=== PATIENT | female | born 1975 | race Caucasian/White ===

== ENCOUNTER 2022-12-02 13:49 | Outpatient (OUT) | payer MEDICARE, SELFPAY ==
--- NOTE | 2022-12-02 13:53 | US_ITS ---
Patient: FIDELINA FONTENOT Exam Date: 12/02/2022 : 1975 Gender:F Ordering : ABRAM Avina DERICAUGIE Admission #: [id number] Family : Order #: [id number] CLICK HERE TO VIEW EXAM RADIOLOGY REPORT PROCEDURE: MM TOMOSYNTHESIS DIAGNOSTIC RT, 12/02/2022, 13:45 US BREAST RT LIMITED, 12/02/2022, 14:03 COMPARISON: MAMMO POST BIOPSY RIGHT, 06/04/2022. MG MAMM RT DIAG FU, 05/28/2022. MG MAMM SCREEN 3D MARTHA CAD, 04/29/2022. DIGITIZED_MAMMO, 12/28/2009. INDICATIONS: Abnormal Breast Finding N64.59 Calculator Name NCI Breast Cancer Risk Assessment Tool 5 Year Breast Cancer Risk 3.30% Lifetime Breast Cancer Risk 26.20% Personal Breast Cancer No Personal Ovarian Cancer No Treatments None Family Cancers Mother with breast cancer at age ~40. LOCATION: [facility] BREAST COMPOSITION: Scattered areas fibroglandular density. FINDINGS: DIAGNOSTIC CATEGORY 2--BENIGN FINDING: RIGHT BREAST: Biopsy marker clip within the lower-outer quadrant with adjacent subtle asymmetry corresponding to previously biopsied mass. Ultrasound evaluation demonstrates biopsy marker clip adjacent a 6 x 6 x 3 mm hypoechoic mass, slightly smaller than previously seen. No overtly suspicious findings. Annual screening mammography is recommended. RECOMMENDATIONS: ROUTINE MAMMOGRAM AND CLINICAL EVALUATION IN 12 MONTHS. PLEASE NOTE: A NORMAL MAMMOGRAM DOES NOT EXCLUDE THE POSSIBILITY OF BREAST CANCER. A CLINICALLY SUSPICIOUS PALPABLE LUMP SHOULD BE BIOPSIED. Dictated by: Michael Orantes M.D. on 12/02/2022 at 14:23 Approved by: Michael Orantes M.D. on 12/02/2022 at 14:25
--- NOTE | 2022-12-02 13:57 | MM_ITS ---
Patient: FIDELINA FONTENOT Exam Date: 12/02/2022 : 1975 Gender:F Ordering : ABRAM Avina DERICAUGIE Admission #: [id number] Family : Order #: [id number] CLICK HERE TO VIEW EXAM RADIOLOGY REPORT PROCEDURE: MM TOMOSYNTHESIS DIAGNOSTIC RT, 12/02/2022, 13:45 US BREAST RT LIMITED, 12/02/2022, 14:03 COMPARISON: MAMMO POST BIOPSY RIGHT, 06/04/2022. MG MAMM RT DIAG FU, 05/28/2022. MG MAMM SCREEN 3D MARTHA CAD, 04/29/2022. DIGITIZED_MAMMO, 12/28/2009. INDICATIONS: Abnormal Breast Finding N64.59 Calculator Name NCI Breast Cancer Risk Assessment Tool 5 Year Breast Cancer Risk 3.30% Lifetime Breast Cancer Risk 26.20% Personal Breast Cancer No Personal Ovarian Cancer No Treatments None Family Cancers Mother with breast cancer at age ~40. LOCATION: [facility] BREAST COMPOSITION: Scattered areas fibroglandular density. FINDINGS: DIAGNOSTIC CATEGORY 2--BENIGN FINDING: RIGHT BREAST: Biopsy marker clip within the lower-outer quadrant with adjacent subtle asymmetry corresponding to previously biopsied mass. Ultrasound evaluation demonstrates biopsy marker clip adjacent a 6 x 6 x 3 mm hypoechoic mass, slightly smaller than previously seen. No overtly suspicious findings. Annual screening mammography is recommended. RECOMMENDATIONS: ROUTINE MAMMOGRAM AND CLINICAL EVALUATION IN 12 MONTHS. PLEASE NOTE: A NORMAL MAMMOGRAM DOES NOT EXCLUDE THE POSSIBILITY OF BREAST CANCER. A CLINICALLY SUSPICIOUS PALPABLE LUMP SHOULD BE BIOPSIED. Dictated by: Michael Orantes M.D. on 12/02/2022 at 14:23 Approved by: Michael Orantes M.D. on 12/02/2022 at 14:25
== END 2022-12-02 13:50 ==
LOC: US 13:50
PROVIDERS: PCP Nurse Practitioner Primary Care; Visit Provider Nurse Practitioner Primary Care
DX: N64.59 Other signs and symptoms in breast (principal)
CPT/HCPCS: 76642; 77065; G0279

== ENCOUNTER 2022-12-11 12:19 | Emergency (ER) | payer MEDICARE, SELFPAY ==
[2022-12-11 12:26] VITALS: BP 101/64; PULSE 75; RESP 18; TEMP 36.7; O2SAT 98; BMI 50.0
--- NOTE | 2022-12-11 12:37 | ED.NAVMDI1 ---
HPI - Nausea/Vomiting/Diarrhea General Chief complaint: Nausea/Vomiting/Diarrhea Stated complaint: VOMITING Time Seen by Provider: 12/11/22 12:30 Source: patient Mode of arrival: walk-in Limitations: no limitations History of Present Illness HPI Narrative: 47-year-old female presents for nausea and vomiting and constipation. She hasn't had a bowel movement in four days. That is quite unusual for her, she usually has two a day. No fever or complaints of abdominal pain. Symptoms started yesterday. Related Data Previous Rx's Medication Instructions Recorded ondansetron HCl 4 mg tablet 4 mg PO Q6H PRN nausea and 12/11/22 vomiting #20 tabs Allergies Allergy/AdvReac Type Severity Reaction Status Date / Time doxycycline AdvReac Intermediate Verified 12/11/22 12:39 oxytocin [From Pitocin] AdvReac Intermediate Verified 12/11/22 12:39 sumatriptan [From Imitrex] AdvReac Intermediate Verified 12/11/22 12:39 Review of Systems ROS Narrative A ten point review of systems is negative except as noted above. Exam Narrative Exam Narrative: Nurses note and vital signs reviewed and patient is not hypoxic. General: The patient appears uncomfortable Skin: Warm, Mildly diaphoretic, no pallor noted. There is no rash noted. Head: Normocephalic, atraumatic Eye: Normal conjunctiva, no drainage Ears, Nose, Mouth, and Throat: oral mucosa is moist. Nares patent. Cardiovascular: Regular Rate and Rhythm Respiratory: Patient is in no distress, no accessory muscle use, lungs are clear to auscultation, no wheezing, rales or rhonchi Back: non-tender GI: no tenderness to palpation, no masses appreciated. No rebound, guarding, or rigidity noted. Musculoskeletal: The patient has no evidence of calf tenderness, no pitting edema, symmetrical pulses noted bilaterally Neurological: A&O, normal speech Psychiatric: Cooperative Constitutional Vital Signs - 24 hr 12/11/22 12:26 Temperature 98.1 F Pulse Rate [Monitor] 75 Respiratory Rate 18 Blood Pressure [Left Arm] 101/64 Pulse Oximetry 98 Course Vital Signs Vital signs: Vital Signs Temperature 98.1 F 12/11/22 12:26 Pulse Rate 75 12/11/22 12:26 Respiratory Rate 18 12/11/22 12:26 Blood Pressure 101/64 12/11/22 12:26 Pulse Oximetry 98 12/11/22 12:26 Temperature 98.1 F 12/11/22 12:26 Pulse Rate 75 12/11/22 12:26 Respiratory Rate 18 12/11/22 12:26 Blood Pressure 101/64 12/11/22 12:26 Pulse Oximetry 98 12/11/22 12:26 MDM - Nausea/Vomiting/Diarrhea MDM Narrative Medical decision making narrative: X-rays not consistent with constipation. She is feeling improved with IV fluids and Zofran and she is able to be discharged home. Treatment diagnosis and follow-up were discussed with the patient. Differential Diagnosis Differential diagnosis: Likely food poisoning, gastroenteritis and dehydration Lab Data Attestation: I reviewed the patient's lab results. Labs: Lab Results 12/11/22 Range/Units 12:44 WBC 9.3 (4.0-11.0) 10^3/uL RBC 4.81 (4.20-5.40) 10^6/uL Hgb 14.0 (12.0-16.0) g/dL Hct 42.8 (36.0-48.0) % MCV 89.0 (81.0-99.0) fL MCH 29.1 (26.7-34.0) pg MCHC 32.7 (29.9-35.2) g/dL RDW 15.4 H (11.0-15.0) % Plt Count 274 (150-450) 10^3/uL MPV 10.0 (9.5-13.5) fL Neut % (Auto) 81.3 H (43.0-75.0) % Lymph % (Auto) 13.4 L (20.5-60.0) % Sterling % (Auto) 4.2 (1.7-12.0) % Eos % (Auto) 0.2 L (0.9-7.0) % Baso % (Auto) 0.4 (0.2-2.0) % Neut # (Auto) 7.6 H (1.4-6.5) 10^3/uL Lymph # (Auto) 1.3 (1.2-3.8) 10^3/uL Sterling # (Auto) 0.4 (0.3-0.8) 10^3/uL Eos # (Auto) 0.0 (0.0-0.7) 10^3/uL Baso # (Auto) 0.0 (0.0-0.1) 10^3/uL Abs Immat Gran (auto) 0.05 H (0.00-0.03) 10^3/uL Imm/Tot Granulo (auto) 0.5 (0.0-0.5) % Sodium 138 (136-145) mmol/L Potassium 3.7 (3.5-5.1) mmol/L Chloride 100 (98-107) mmol/L Carbon Dioxide 30.3 (21.0-32.0) mmol/L Anion Gap 11.4 BUN 15.0 (7.0-18.0) mg/dL Creatinine 0.90 (0.55-1.02) mg/dL Est GFR ( Amer) >60 (>=60) Est GFR (Non-Af Amer) >60 (>=60) BUN/Creatinine Ratio 16.7 Glucose 128 H (74-106) mg/dL Calcium 9.2 (8.5-10.1) mg/dL Total Bilirubin 0.8 (0.2-1.0) mg/dL AST 23 (15-37) U/L ALT 30 (14-59) U/L Alkaline Phosphatase 79 (46-116) U/L Total Protein 8.2 (6.4-8.2) g/dL Albumin 4.1 (3.4-5.0) g/dL Globulin 4.1 g/dL Albumin/Globulin Ratio 1.0 Lipase 164.0 (73.0-393.0) U/L Discharge Plan Discharge Chief Complaint: Nausea/Vomiting/Diarrhea Clinical Impression: Nausea & vomiting Patient Disposition: Home, Self-Care Time of Disposition Decision: 14:24 Condition: Good Mode of Transportation: Private Vehicle Prescriptions / Home Meds: New ondansetron HCl 4 mg tablet 4 mg PO Q6H PRN (Reason: nausea and vomiting) Qty: 20 0RF Instructions: Acute Nausea and Vomiting (DC) Stand Alone Forms: Portal Instructions Referrals: ABRAM GALDAMEZ MD [Primary Care Provider] - 1 week
[2022-12-11] MEDS: ONDANSETRON PF 4 MG/2 ML VIAL IV ×2 (12:46→13:57)
[2022-12-11] MEDS: 0.9 % SODIUM CHLORIDE 1,000 ML 999 ML IV (12:47)
[2022-12-11 12:53] LABS: Basophils Percent Auto 0.4 % (0.2-2.0); Eosinophils Percent Auto 0.2 % (0.9-7.0); Hematocrit 42.8 % (36.0-48.0); Immature Granulocytes Abs Auto 0.05 10^3/uL (0.00-0.03); Immature Granulocytes Pct Auto 0.5 % (0.0-0.5); Lymphocytes Absolute Auto 1.3 10^3/uL (1.2-3.8); Lymphocytes Percent Auto 13.4 % (20.5-60.0); Mean Corpuscular HGB Conc 32.7 g/dL (29.9-35.2); Mean Corpuscular Hemoglobin 29.1 pg (26.7-34.0); Monocytes Absolute Auto 0.4 10^3/uL (0.3-0.8); Monocytes Percent Auto 4.2 % (1.7-12.0); Neutrophils Absolute Auto 7.6 10^3/uL (1.4-6.5); Neutrophils Percent Auto 81.3 % (43.0-75.0); Platelet Count 274 10^3/uL (150-450); Red Blood Count 4.81 10^6/uL (4.20-5.40); Red Cell Distribution Width 15.4 % (11.0-15.0); White Blood Count 9.3 10^3/uL (4.0-11.0)
--- NOTE | 2022-12-11 12:57 | XR_ITS ---
The [address] [address] Patient Name: FIDELINA FONTENOT MRN: [id number] date: 1975 Sex: F Assigned Patient Location: ED.MAIN Current Patient Location: ER Accession/Order Number: [id number] Exam Date: 12/11/2022 12:57 Report Date: 12/11/2022 13:36 At the request of: ADAM TUCKER Procedure: XR abdomen 1V EXAMINATION: XR abdomen 1V HISTORY: vomiting, poss constipation COMPARISON: No relevant comparison available. FINDINGS: BOWEL GAS PATTERN: No abnormal dilation or deviation. No significant stool burden. CALCIFICATIONS: None significant. OTHER: Mechanical fusion and degenerative changes of lower lumbar spine. IMPRESSION: 1. Normal bowel gas pattern. 2. No suspicious findings to account for patient's symptoms. Electronically authenticated by: GILL MORENO Date: 12/11/2022 13:36
[2022-12-11 13:08] LABS: Alanine Aminotransferase 30 U/L (14-59); Albumin Level 4.1 g/dL (3.4-5.0); Alkaline Phosphatase 79 U/L (46-116); Anion Gap 11.4; Aspartate Amino Transferase 23 U/L (15-37); BUN Creatinine Ratio 16.7; Bilirubin Total 0.8 mg/dL (0.2-1.0); Calcium 9.2 mg/dL (8.5-10.1); Carbon Dioxide 30.3 mmol/L (21.0-32.0); Chloride 100 mmol/L (98-107); Estimated GFR (African America >60 (>=60); Estimated GFR (Non-African Ame >60 (>=60); Globulin 4.1 g/dL; Glucose 128 mg/dL (74-106); Potassium 3.7 mmol/L (3.5-5.1); Sodium 138 mmol/L (136-145); Total Protein 8.2 g/dL (6.4-8.2)
== END 2022-12-11 14:31 | disposition home or self-care (01) ==
PROVIDERS: Emergency Provider Emergency Medicine; PCP Nurse Practitioner Primary Care
DX: R11.2 Nausea with vomiting, unspecified (principal)
CPT/HCPCS: 36415; 74018; 80053; 83690; 85025; 96361; 96374; 96376; 99284

== ENCOUNTER 2022-12-25 20:42 | Outpatient (REF) | payer MEDICARE, MEDICAID, SELFPAY ==
[2022-12-25 22:03] LABS: Adenovirus NOT DETECTED (NOT DETECTE); Bordetella parapertussis NOT DETECTED (NOT DETECTE); Coronavirus 229E NOT DETECTED (NOT DETECTE); Coronavirus HKU1 NOT DETECTED (NOT DETECTE); Coronavirus NL63 NOT DETECTED (NOT DETECTE); Coronavirus OC43 NOT DETECTED (NOT DETECTE); Human Metapneumovirus NOT DETECTED (NOT DETECTE); Human Rhinovirus/Enterovirus NOT DETECTED (NOT DETECTE); Influenza A NOT DETECTED (NOT DETECTE); Influenza B NOT DETECTED (NOT DETECTE); Mycoplasma pneumoniae NOT DETECTED (NOT DETECTE); Parainfluenza Virus 1 NOT DETECTED (NOT DETECTE); Parainfluenza Virus 2 NOT DETECTED (NOT DETECTE); Parainfluenza Virus 3 NOT DETECTED (NOT DETECTE); Parainfluenza Virus 4 NOT DETECTED (NOT DETECTE); Respiratory Syncytial Virus NOT DETECTED (NOT DETECTE); SARS-CoV-2 NOT DETECTED (NOT DETECTE)
== END 2022-12-25 20:43 | disposition home or self-care (01) ==
LOC: LAB 20:42
PROVIDERS: PCP Nurse Practitioner Primary Care; Visit Provider Nurse Practitioner Primary Care
DX: R11.14 Bilious vomiting (principal); Z20.822 Contact with and (suspected) exposure to COVID-19; R82.998 Other abnormal findings in urine
CPT/HCPCS: 0202U; 87086

== ENCOUNTER 2022-12-26 08:45 | Outpatient (RCR) | payer MEDICARE, MEDICAID, SELFPAY ==
[2022-12-26 08:45] VITALS: BP 145/88; PULSE 83; RESP 20; TEMP 37.4; O2SAT 94
[2022-12-26] MEDS: 0.9 % SODIUM CHLORIDE 1,000 ML 999 ML IV (08:58)
[2022-12-26] MEDS: ONDANSETRON PF 4 MG/2 ML VIAL IV (08:59)
--- NOTE | 2022-12-26 09:09 | PC.NURSE ---
Patient is here for IV hydration with zofran, she is tolerating this well. She currently denies any nausea.
[2022-12-26 09:33] LABS: Alanine Aminotransferase 13 U/L (14-59); Albumin Globulin Ratio 1.2; Albumin Level 4.2 g/dL (3.4-5.0); Alkaline Phosphatase 78 U/L (46-116); Anion Gap 12.4; Aspartate Amino Transferase 16 U/L (15-37); BUN Creatinine Ratio 11.2; Calcium 9.1 mg/dL (8.5-10.1); Carbon Dioxide 25.3 mmol/L (21.0-32.0); Chloride 100 mmol/L (98-107); Estimated GFR (African America >60 (>=60); Estimated GFR (Non-African Ame 55 (>=60); Globulin 3.6 g/dL; Glucose 208 mg/dL (74-106); Potassium 3.7 mmol/L (3.5-5.1); Sodium 134 mmol/L (136-145); Total Protein 7.8 g/dL (6.4-8.2)
--- NOTE | 2022-12-26 11:02 | PC.NURSE ---
Patient tolerated infusion well without complications. IV was discontinued and patient tolerated well. She was discharged home with family.
== END 2023-01-19 23:59 | disposition home or self-care (01) ==
LOC: INF 08:45
PROVIDERS: PCP Nurse Practitioner Primary Care; Visit Provider Nurse Practitioner Primary Care
DX: K52.9 Noninfective gastroenteritis and colitis, unspecified (principal)
CPT/HCPCS: 36415; 80048; 80053; 96361; 96374

== ENCOUNTER 2023-02-02 11:10 | Outpatient (OUT) | payer MEDICARE, MEDICAID, SELFPAY ==
[2023-02-02 12:18] LABS: Basophils Percent Auto 0.5 % (0.2-2.0); Eosinophils Absolute Auto 0.1 10^3/uL (0.0-0.7); Eosinophils Percent Auto 1.2 % (0.9-7.0); Hematocrit 39.7 % (36.0-48.0); Hemoglobin 13.2 g/dL (12.0-16.0); Immature Granulocytes Abs Auto 0.04 10^3/uL (0.00-0.03); Immature Granulocytes Pct Auto 0.5 % (0.0-0.5); Lymphocytes Absolute Auto 1.9 10^3/uL (1.2-3.8); Lymphocytes Percent Auto 25.5 % (20.5-60.0); Mean Corpuscular HGB Conc 33.2 g/dL (29.9-35.2); Mean Corpuscular Hemoglobin 29.3 pg (26.7-34.0); Mean Corpuscular Volume 88.2 fL (81.0-99.0); Mean Platelet Volume 10.5 fL (9.5-13.5); Monocytes Absolute Auto 0.4 10^3/uL (0.3-0.8); Monocytes Percent Auto 4.6 % (1.7-12.0); Neutrophils Absolute Auto 5.1 10^3/uL (1.4-6.5); Neutrophils Percent Auto 67.7 % (43.0-75.0); Platelet Count 224 10^3/uL (150-450); Red Cell Distribution Width 15.6 % (11.0-15.0); White Blood Count 7.5 10^3/uL (4.0-11.0)
[2023-02-02 12:27] LABS: Alanine Aminotransferase 26 U/L (14-59); Albumin Globulin Ratio 1.1; Albumin Level 3.9 g/dL (3.4-5.0); Alkaline Phosphatase 76 U/L (46-116); Anion Gap 13.8; Aspartate Amino Transferase 14 U/L (15-37); BUN Creatinine Ratio 11.3; Bilirubin Total 0.4 mg/dL (0.2-1.0); C Reactive Protein 0.6 mg/dL (<=1.0); Calcium 8.8 mg/dL (8.5-10.1); Chloride 102 mmol/L (98-107); Estimated GFR (African America >60 (>=60); Estimated GFR (Non-African Ame >60 (>=60); Globulin 3.4 g/dL; Glucose 119 mg/dL (74-106); Potassium 3.8 mmol/L (3.5-5.1); Sodium 140 mmol/L (136-145); Total Protein 7.3 g/dL (6.4-8.2)
[2023-02-02 12:32] LABS: Erythrocyte Sedimentation Rate 16 mm/hr (<=20)
== END 2023-02-02 11:11 | disposition home or self-care (01) ==
LOC: LAB 11:14
PROVIDERS: PCP Nurse Practitioner Primary Care
DX: M06.00 Rheumatoid arthritis without rheumatoid factor, unspecified site (principal); Z79.899 Other long term (current) drug therapy
CPT/HCPCS: 36415; 80053; 85025; 85652; 86140

== ENCOUNTER 2023-02-02 11:22 | Outpatient (OUT) | payer MEDICARE, MEDICAID, SELFPAY ==
[2023-02-02 11:47] LABS: Adenovirus NOT DETECTED (NOT DETECTE); Bordetella parapertussis NOT DETECTED (NOT DETECTE); Coronavirus 229E NOT DETECTED (NOT DETECTE); Coronavirus HKU1 NOT DETECTED (NOT DETECTE); Coronavirus NL63 NOT DETECTED (NOT DETECTE); Coronavirus OC43 NOT DETECTED (NOT DETECTE); Human Metapneumovirus NOT DETECTED (NOT DETECTE); Human Rhinovirus/Enterovirus NOT DETECTED (NOT DETECTE); Influenza A NOT DETECTED (NOT DETECTE); Influenza B NOT DETECTED (NOT DETECTE); Mycoplasma pneumoniae NOT DETECTED (NOT DETECTE); Parainfluenza Virus 1 NOT DETECTED (NOT DETECTE); Parainfluenza Virus 2 NOT DETECTED (NOT DETECTE); Parainfluenza Virus 3 NOT DETECTED (NOT DETECTE); Parainfluenza Virus 4 NOT DETECTED (NOT DETECTE); Respiratory Syncytial Virus NOT DETECTED (NOT DETECTE); SARS-CoV-2 NOT DETECTED (NOT DETECTE)
== END 2023-02-02 11:23 | disposition home or self-care (01) ==
LOC: LAB 11:24
PROVIDERS: PCP Nurse Practitioner Primary Care; Visit Provider Nurse Practitioner Primary Care
DX: M06.00 Rheumatoid arthritis without rheumatoid factor, unspecified site (principal); Z79.899 Other long term (current) drug therapy; R11.14 Bilious vomiting
CPT/HCPCS: 0202U; 36415; 80053; 85025; 85652; 86140

== ENCOUNTER 2023-02-12 11:49 | Outpatient (OUT) | payer MEDICARE, MEDICAID, SELFPAY ==
[2023-02-12 12:28] LABS: Estimated Average Glucose 117 mg/dL; Glycohemoglobin A1C 5.7 % (4.5-6.2)
== END 2023-02-12 11:50 | disposition home or self-care (01) ==
PROVIDERS: PCP Nurse Practitioner Primary Care; Visit Provider Nurse Practitioner Primary Care
DX: R73.03 Prediabetes (principal)
CPT/HCPCS: 36415; 83036

== ENCOUNTER 2023-04-10 12:45 | Outpatient (OUT) | payer MEDICARE, MEDICAID, SELFPAY ==
--- NOTE | 2023-04-10 12:51 | US_ITS ---
The [address] [address] Patient Name: FIDELINA FONTENOT MRN: [id number] date: 1975 Sex: F Assigned Patient Location: [place] Current Patient Location: Accession/Order Number: [id number] Exam Date: 04/10/2023 12:52 Report Date: 04/10/2023 14:43 At the request of: ALIS STEINBERG Procedure: US pelvis w/ transvaginal EXAM: US pelvis w/ transvaginal HISTORY: Menorrhagia with irregular cycle N92.1 COMPARISON: None. TECHNIQUE: Real-time transabdominal and transvaginal imaging of the pelvis. Findings: The uterus measures 9.9 x 5.5 x 6.5 cm. No intrauterine mass. There is scarring involving the anterior uterus from prior section. The endometrium is 0.9 cm thick. No fluid within the endometrial canal. Trace amount of fluid within the cervical canal. The right ovary is not visualized due to overlying bowel gas. The left ovary measures 2.9 x 2.0 x 2.2 cm and is unremarkable. Blood flow is identified. No adnexal mass or free pelvic fluid. US/US pelvis w/ transvaginal IMPRESSION: 1. Trace fluid within the cervical canal. 2. Nonvisualization of the right ovary. Electronically authenticated by: WILFRIDO FORD Date: 04/10/2023 14:43
[2023-04-10 13:50] LABS: Basophils Absolute Auto 0.1 10^3/uL (0.0-0.1); Basophils Percent Auto 0.8 % (0.2-2.0); Eosinophils Absolute Auto 0.1 10^3/uL (0.0-0.7); Eosinophils Percent Auto 1.5 % (0.9-7.0); Hematocrit 35.5 % (36.0-48.0); Hemoglobin 11.7 g/dL (12.0-16.0); Immature Granulocytes Abs Auto 0.01 10^3/uL (0.00-0.03); Immature Granulocytes Pct Auto 0.1 % (0.0-0.5); Mean Corpuscular Hemoglobin 29.6 pg (26.7-34.0); Mean Corpuscular Volume 89.9 fL (81.0-99.0); Mean Platelet Volume 10.1 fL (9.5-13.5); Monocytes Absolute Auto 0.3 10^3/uL (0.3-0.8); Monocytes Percent Auto 4.2 % (1.7-12.0); Neutrophils Absolute Auto 4.9 10^3/uL (1.4-6.5); Neutrophils Percent Auto 66.4 % (43.0-75.0); Platelet Count 201 10^3/uL (150-450); Red Blood Count 3.95 10^6/uL (4.20-5.40); Red Cell Distribution Width 14.4 % (11.0-15.0); White Blood Count 7.3 10^3/uL (4.0-11.0)
[2023-04-10 14:04] LABS: INR 0.94; Partial Thromboplastin Time 27.2 sec (22.3-36.2)
[2023-04-10 14:24] LABS: Free T4 0.88 ng/dL (0.76-1.46)
[2023-04-10 14:36] LABS: HCG Quantitative 2 mIU/mL; Thyroid Stimulating Hormone 1.354 uIU/mL (0.358-3.740)
== END 2023-04-10 12:46 | disposition home or self-care (01) ==
LOC: US 12:46
PROVIDERS: PCP Nurse Practitioner Primary Care; Visit Provider Obstetrics & Gynecology
DX: N92.1 Excessive and frequent menstruation with irregular cycle (principal); N94.6 Dysmenorrhea, unspecified
CPT/HCPCS: 36415; 76830; 76856; 84439; 84443; 84702; 85025; 85610; 85730

== ENCOUNTER 2023-04-28 12:22 | Outpatient (OUT) | payer MEDICARE, SELFPAY ==
--- NOTE | 2023-04-28 13:00 | XR_ITS ---
The [address] [address] Patient Name: FIDELINA FONTENOT MRN: [id number] date: 1975 Sex: F Assigned Patient Location: [facility] Current Patient Location: [facility] Accession/Order Number: [id number] Exam Date: 04/28/2023 13:15 Report Date: 04/28/2023 13:48 At the request of: ALIS STEINBERG Procedure: XR chest 2V EXAMINATION: XR chest 2V HISTORY: Preop exam COMPARISON: No relevant comparison available. TECHNIQUE: PA and lateral FINDINGS: LUNGS: No significant pulmonary parenchymal abnormalities. VASCULATURE: No increased pulmonary vasculature. PLEURA: No pneumothorax, effusion, or pleural thickening. CARDIAC: No cardiomegaly or cardiac silhouette abnormality. MEDIASTINUM: No visible mass or adenopathy. BONES: No fracture or visible bone lesion. OTHER: Negative. XR/XR chest 2V IMPRESSION: No acute cardiopulmonary process Electronically authenticated by: AGUSTIN DIMAS Date: 04/28/2023 13:48
[2023-04-28 13:11] LABS: Basophils Percent Auto 0.5 % (0.2-2.0); Eosinophils Absolute Auto 0.1 10^3/uL (0.0-0.7); Eosinophils Percent Auto 1.3 % (0.9-7.0); Hematocrit 38.4 % (36.0-48.0); Hemoglobin 12.4 g/dL (12.0-16.0); Immature Granulocytes Abs Auto 0.02 10^3/uL (0.00-0.03); Immature Granulocytes Pct Auto 0.3 % (0.0-0.5); Lymphocytes Absolute Auto 1.5 10^3/uL (1.2-3.8); Lymphocytes Percent Auto 20.3 % (20.5-60.0); Mean Corpuscular HGB Conc 32.3 g/dL (29.9-35.2); Mean Corpuscular Hemoglobin 28.7 pg (26.7-34.0); Mean Corpuscular Volume 88.9 fL (81.0-99.0); Mean Platelet Volume 10.1 fL (9.5-13.5); Monocytes Absolute Auto 0.4 10^3/uL (0.3-0.8); Monocytes Percent Auto 4.7 % (1.7-12.0); Neutrophils Absolute Auto 5.4 10^3/uL (1.4-6.5); Neutrophils Percent Auto 72.9 % (43.0-75.0); Platelet Count 215 10^3/uL (150-450); Red Blood Count 4.32 10^6/uL (4.20-5.40); Red Cell Distribution Width 14.7 % (11.0-15.0); White Blood Count 7.4 10^3/uL (4.0-11.0)
[2023-04-28 13:35] LABS: Anion Gap 8.4; BUN Creatinine Ratio 16.7; Calcium 9.1 mg/dL (8.5-10.1); Carbon Dioxide 31.5 mmol/L (21.0-32.0); Chloride 100 mmol/L (98-107); Estimated GFR (African America >60 (>=60); Estimated GFR (Non-African Ame >60 (>=60); Glucose 103 mg/dL (74-106); Potassium 3.9 mmol/L (3.5-5.1); Sodium 136 mmol/L (136-145)
[2023-04-28 13:47] LABS: INR 0.97; Partial Thromboplastin Time 25.9 sec (22.3-36.2); Prothrombin Time 10.3 sec (9.0-11.6)
== END 2023-04-28 12:23 | disposition home or self-care (01) ==
LOC: PST 12:24
PROVIDERS: PCP Nurse Practitioner Primary Care; Visit Provider Obstetrics & Gynecology
DX: Z01.810 Encounter for preprocedural cardiovascular examination (principal); Z01.812 Encounter for preprocedural laboratory examination; N92.0 Excessive and frequent menstruation with regular cycle; N93.9 Abnormal uterine and vaginal bleeding, unspecified; R10.2 Pelvic and perineal pain
CPT/HCPCS: 71046; 80048; 85025; 85610; 85730

== ENCOUNTER 2023-05-11 06:15 | Day surgery (SDC) | payer MEDICARE, MEDICAID, SELFPAY ==
[2023-04-28 13:16] VITALS: BP 106/69; PULSE 71; RESP 22; TEMP 36.6; O2SAT 95; BMI 51.7
[2023-05-11] VITALS (14 sets, daily range): BP systolic 119–164; BP diastolic 69–94; PULSE 60–83; RESP 2–19; TEMP 36–36.9; O2SAT 90–96
[2023-05-11 06:28] LABS: Basophils Absolute Auto 0.1 10^3/uL (0.0-0.1); Basophils Percent Auto 0.7 % (0.2-2.0); Eosinophils Absolute Auto 0.2 10^3/uL (0.0-0.7); Eosinophils Percent Auto 2.4 % (0.9-7.0); Hematocrit 39.2 % (36.0-48.0); Hemoglobin 12.6 g/dL (12.0-16.0); Immature Granulocytes Abs Auto 0.01 10^3/uL (0.00-0.03); Immature Granulocytes Pct Auto 0.1 % (0.0-0.5); Lymphocytes Absolute Auto 2.3 10^3/uL (1.2-3.8); Lymphocytes Percent Auto 32.9 % (20.5-60.0); Mean Corpuscular HGB Conc 32.1 g/dL (29.9-35.2); Mean Corpuscular Hemoglobin 28.9 pg (26.7-34.0); Mean Corpuscular Volume 89.9 fL (81.0-99.0); Mean Platelet Volume 9.7 fL (9.5-13.5); Monocytes Absolute Auto 0.4 10^3/uL (0.3-0.8); Monocytes Percent Auto 6.1 % (1.7-12.0); Neutrophils Absolute Auto 4.1 10^3/uL (1.4-6.5); Neutrophils Percent Auto 57.8 % (43.0-75.0); Platelet Count 222 10^3/uL (150-450); Red Blood Count 4.36 10^6/uL (4.20-5.40); Red Cell Distribution Width 15.2 % (11.0-15.0); White Blood Count 7.1 10^3/uL (4.0-11.0)
--- NOTE | 2023-05-11 06:51 | PC.NURSE ---
SOB with exertion
[2023-05-11 06:53] LABS: HCG Quantitative <1 mIU/mL
[2023-05-11] MEDS: LACTATED RINGER'S SOLUTION 1,000 ML 50 ML IV (07:11)
--- NOTE | 2023-05-11 08:15 | PM.ONB ---
Brief Operative Note Date of procedure: 05/11/23 Pre-op diagnosis: menorrhagia Post-op diagnosis: same as pre-op Procedure: NAME OF PROCEDURE: [ ] Serenity endometrial ablation with hysteroscopy. PROCEDURE: The patient was taken back to the OR where she was prepped and draped in the normal sterile fashion after being placed in the dorsal lithotomy position, after being placed under general anesthesia without difficulty.? A weighted speculum was placed into the vagina. The anterior lip was grasped with a single tooth tenaculum. The patient was then sounded to approximated 8cm. The patient?s cervix was gently dilated using hegardilators. The hysteroscope was passed through the cervix into the uterus where both ostia were seen. No gross evidence of polyps, fibroids or malignancy. The cervical length was noted to be 4 cm. The total cavity length is 4cm.? The Serenity ablation apparatus was set to approximately 4cm in length. This was placed through the cervix and into the uterus. After the seal was tested, at that time the total ablation of 120 seconds was performed with the Serenity withoutdifficulty. All instruments were removed from the vagina. Excellent hemostasis noted.? Sponge and lap count correct times 2.? Patient taken to recovery in stable condition. Surgeon: Reza Mendez Estimated blood loss (mL): 5 Pathology: none sent Condition: stable Disposition: PACU
[2023-05-11] MEDS: HYDROCODONE/ACET 5-325 MG TABLET 1 TAB PO (08:40)
== END 2023-05-11 09:21 | disposition home or self-care (01) ==
PROVIDERS: PCP Nurse Practitioner Primary Care; Visit Provider Obstetrics & Gynecology
PROC: (CPT 58563; principal; 2023-05-11 07:30)
DX: N92.0 Excessive and frequent menstruation with regular cycle (principal); N93.9 Abnormal uterine and vaginal bleeding, unspecified; R10.2 Pelvic and perineal pain; J44.9 Chronic obstructive pulmonary disease, unspecified; I50.9 Heart failure, unspecified; I25.2 Old myocardial infarction; Z98.51 Tubal ligation status; F17.210 Nicotine dependence, cigarettes, uncomplicated; G47.33 Obstructive sleep apnea (adult) (pediatric); I11.0 Hypertensive heart disease with heart failure; E78.5 Hyperlipidemia, unspecified; Z95.5 Presence of coronary angioplasty implant and graft; K21.9 Gastro-esophageal reflux disease without esophagitis; E66.01 Morbid (severe) obesity due to excess calories; Z68.43 Body mass index [BMI] 50.0-59.9, adult; R73.03 Prediabetes; F41.9 Anxiety disorder, unspecified; F32.A Depression, unspecified
CPT/HCPCS: 58563; 36415; 84702; 85025; J2704

== ENCOUNTER 2023-09-02 12:35 | Outpatient (OUT) | payer MEDICARE, SELFPAY ==
--- OUTSIDE RECORDS SUMMARY | 2023-09-02 12:45 | XMS_ITS | CCD ---
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 Role Phone Unavailable Primary Care Provider Unavailjim e Faisal Nix MD, Wally Primary Care Provider [facility] Referring Unavailable Jannette, Peterson Admitting Unavailable Jannette, Peterson Attending Unavailable ROSA CM Referring Unavailable LEE, CM Primary Care Unavailable Jannette, Peterson Admitting Unavailable Jannette, Peterson Attending Unavailable SELF, REFERRED Referring Unavailable ROSA, CM Primary Care Unavailable Jannette, Peterson Admitting Unavailable Jannette, Peterson Attending Unavailable ROSA CM Referring Unavailable ROSA, CM Primary Care Unavailable SHAMMO, DONNIE Referring Unavailable Rick STAPLES Attending Unavailable Rick STAPLES Attending Unavailable Mingo Thapa Primary Care Provider SHAMMO, DONNIE Admitting Unavailable SHAMMO, DONNIE Attending Unavailable SHAMMO, DONNIE Primary Care Unavailable AGUSTIN ADAMSON Consulting Unavailable SHAMMO, DONNIE Consulting Unavailable SHAMMO, DONNIE Admitting Unavailable SHAMMO, DONNIE Attending Unavailable SHAMMO, DONNIE Primary Care Unavailable SHAMMO, DONNIE Consulting Unavailable SHAMMO, DONNIE Primary Care Unavailable REQUEST, DR NONE LISTED Consulting Unavaila ble REQUEST, DR NONE LISTED Attending Unavaila ble REQUEST, NONE LISTED Admitting Unavaila ble SHAMMO, DONNIE Admitting Unavailable SHAMMO, DONNIE Attending Unavailable SHAMMO, DONNIE Primary Care Unavailable SHAMMO, DONNIE Consulting Unavailable SHAMMO, DONNIE Primary Care Unavailable HAY ., DR AVILES Consulting Unavailable HAY ., DR AVILES Attending Unavailable HAY ., DR AVILES Admitting Unavailable WILFRIDO FORD Consulting Unavailable SHAMMO, DONNIE Admitting Unavailable SHAMMO, DONNIE Primary Care Unavailable SHAMMO, DONNIE Attending Unavailable ZIEBER, DR GILL Contreras Consulting Unavailable SHAMMO, DONNIE Consulting Unavailable SHAMMO, DONNIE Primary Care Unavailable SHAMMO, DONNIE Attending Unavailable SHAMMO, DONNIE Admitting Unavailable SHAMMO, DONNIE Primary Care Unavailable HAY ., DR AVILES Consulting Unavailable HAY ., DR AVILES Attending Unavailable HAY ., DR AVILES Admitting Unavailable SHAMMO, DONNIE Attending Unavailable SHAMMO, DONNIE Primary Care Unavailable ZIEBER, DR GILL Contreras Consulting Unavailable SHAMMO, DONNIE Admitting Unavailable NEFCY, MELISSA Consulting Unavailable SHAMMO, DONNIE Consulting Unavailable SHAMMO, DONNIE Admitting Unavailable SHAMMO, DONNIE Primary Care Unavailable SHAMMO, DONNIE Consulting Unavailable SHAMMO, DONNIE Attending Unavailable SHAMMO, DONNIE Admitting Unavailable SHAMMO, DONNIE Primary Care Unavailable SHAMMO, DONNIE Attending Unavailable SHAMMO, DONNIE Consulting Unavailable SHAMMO, DONNIE Admitting Unavailable SHAMMO, DONNIE Attending Unavailable SHAMMO, DONNIE Primary Care Unavailable ZIEBER, DR GILL Contreras Consulting Unavailable SHAMMO, DONNIE Consulting Unavailable SHAMMO, DONNIE Admitting Unavailable SHAMMO, DONNIE Attending Unavailable SHAMMO, DONNIE Primary Care Unavailable Agustin Stephenson Consulting Unavailable SHAMMO, DONNIE Consulting Unavailable SHAMMO, DONNIE Primary Care Unavailable MISC, DR REYES Consulting Unavailable MISC, DR REYES Attending Unavailable MISC, DR REYES Admitting Unavailable KLIPPAGUSTIN PRESLEY Consulting Unavailable SHAMMO, DONNIE Primary Care Unavailable SHAMMO, DONNIE Attending Unavailable SHAMMO, DONNIE Admitting Unavailable Shammo 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, [facility] Primary Care Provi orly MOHIT DEJESUS Admitting Unavailable MOHIT DEJESUS Attending Unavailable [facility] Primary Care Unavailable OLEGMOHIT NUNEZ N Referring Unavailable SHAMMO, [facility] Primary Care Unavailable Franklin, Kayla Unavailable KIM GARCIA Attending Unavailable KIM GARCIA Attending Unavailable MEDINA MONTES Attending Unavailable MEDINA MONTES Attending Unavailable KIM GARCIA Attending Unavailable PETERSON BHATIA Attending Unavailable KIM GARCIA Attending Unavailable VALORIE ARIAS Referring Unavailable ALIS STEINBERG Attending Unavailable ADELAIDA SUBRAMANIAN Attending Unavailable Faisal Nix MD, [facility] Primary Care Provider Allergies Allergy Classification Reported Allergen(s) Allergy Type Date of Onset Reaction(s) Facility (5 sources) Doxycycline; Translations: [DOXYCYCLINE] Drug Allergy 7 [facility] (6 sources) Oxytocin; Translations: [OXYTOCIN] Drug Allergy 4 Anaphylaxis [employer] Work Phone: (5 sources) SUMAtriptan; Translations: [SUMATRIPTAN] Drug Allergy 7 Other (See Comments) [employer] Work Phone: (1 source) Desonide Drug Allergy 1 [facility] (3 sources) Doxycycline Drug Allergy 0 [facility] (4 sources) Morphine; Translations: [MORPHINE] Drug Allergy 7 [facility] (4 sources) NSAIDs; Translations: [NSAIDS (NON-STEROIDAL ANTI-INFLAMMATO RY DRUG)] Drug allergy (disorder) 0 [facility] (2 sources) Oxytocin Drug Allergy 0 Unknown [facility] (4 sources) Plasmin Drug Allergy 9 Unknown [facility] (3 sources) Doxycycline Drug Allergy 7 [facility] (4 sources) Non-steroidal anti-inflammato ry agent Drug Allergy 7 Other: See Comments [facility] (3 sources) SUMAtriptan Drug Allergy 7 Other: See Comments [facility] (2 sources) Oxytocin Drug Allergy 6 [facility] Repository (3 sources) dulaglutide; Translations: [DULAGLUTIDE] Drug Allergy 3 Nausea And Vomiting [facility] (1 source) dulaglutide Drug Allergy vomiting [facility] Other (1 source) ADHESIVE TAPE-SILICONES; Translations: [ADHESIVE TAPE-SILICONES] Propensity to adverse reactions to drug (disorder) 4 [facility] Rep[facility] Medications Current Medications Medication Drug Class(es) Dates Sig (Normalized) Sig (Original) atorvastatin 10 mg oral tablet (1 source) HMG-CoA Reductase Inhibitor Start: 05-20-2022 take 1 tablet by mouth in the morning atorvastatin (LIPITOR) 10 mg tablet Indications: Tobacco abuse , Dyslipidemia Take 1 tablet (10 mg total) by mouth in the morning. 90 tablet 2 05/20/2022 Active busPIRone hydrochloride 15 mg oral tablet (4 sources) Start: 10-15-2021 take 1 tablet by mouth twice daily busPIRone (BUSPAR) 15 MG tablet take 1 tablet by mouth twice a day 0 10/15/2021 Active Comment on above: Take 15 mg by mouth twice daily. calcium chloride 0.0014 meq/ml / potassium chloride 0.004 meq/ml / sodium chloride 0.103 meq/ml / sodium lactate 0.028 meq/ml injectable solution (1 source) Start: 03-05-2023 lactated ringers IV soln infusion cariprazine 3 mg oral capsule (5 sources) Atypical Antipsychotic Start: 10-16-2021 take 1 capsule by mouth once daily VRAYLAR 3 MG CAPS capsule take 1 capsule by mouth by mouth once daily 0 10/16/2021 Active take 4.5 mg by mouth in the morn ing cariprazine (VRAYLAR) 3 mg capsule Take 4.5 mg by mouth in the morning. 0 Active Vraylar Active take 1 capsule by mouth once valencia ly cariprazine (VRAYLAR) 4.5 mg capsule Take 4.5 mg by mouth once daily. 0 Active Comment on above: Take 4.5 mg by mouth once daily. cephalexin 500 mg oral capsule (1 source) Cephalosporin Antibacterial Start: 023 take 1 capsule by mouth every six hours Cephalexin 500 MG 1 capsule Orally Four times a day for 10 days May, Active cyclobenzaprine hydrochloride 10 mg oral tablet (1 source) Muscle Relaxant take 1 tablet by mouth every eight hours Cyclobenzaprine HCl 10 MG 1 tablet as needed Orally Three times a day Active Dilaudid-HP (1 source) Dilaudid-HP Acti ve DULoxetine 60 mg delayed release oral capsule (6 sources) Serotonin and Norepinephrine Reuptake Inhibitor take 1 capsule by mouth in the morning, then take 1 capsule by mouth at bedtime DULoxetine (CYMBALTA) 60 mg capsule Take 1 capsule (60 mg total) by mouth in the morning and 1 capsule (60 mg total) before bedtime. 0 Active take 1 capsule by mo uth every twelve hours Cymbalta 20 MG 1 capsule Orally Twice a day Active take 2 capsules by m outh once daily in the morning DULoxetine (CYMBALTA) 60 mg capsule Take 60 mg by mouth once daily. Taking two capsules (120mg) po every am 0 Active Comment on above: Take 60 mg by mouth once daily. Taking two capsules (120mg) po every am 2 ml fentaNYL 0.05 mg/ml injection (2 sources) Opioid Agonist Start: 03-05-2023 fentaNYL (SUBLIMAZE) injection 50 mcg Start: 03-05-2023 fentaNYL (SUBL IMAZE) injection 25 mcg folic acid 1 mg oral tablet (3 sources) take 1 tablet by raz th every twenty-four hours Folic Acid 1 MG 1 tablet Orally Once a day Active Folic Acid 20 mg cap Take by mouth once daily. 0 Active Comment on above: Take by mouth once d aily. furosemide 40 mg oral tablet (5 sources) Loop Diuretic Start: 09-04-2021 take 1 tablet by mouth twice daily furosemide (LASIX) 40 MG tablet take 1 tablet by mouth twice a day if needed for SWELLING 0 09/04/2021 Active take 1 tablet by mouth once martina y furosemide (LASIX) 20 mg tablet Take 20 mg by mouth once daily. 0 Active Comment on above: Take 20 mg by mouth once daily. lamoTRIgine 25 mg oral tablet (2 sources) Mood Stabilizer, Anti-epileptic Agent take 1 tablet by mouth in the morning lamoTRIgine (LaMICtal) 25 mg tablet Take 1 tablet (25 mg total) by mouth in the morning. 0 Active Comment on above: Take 25 mg by mouth once daily. 10 ml lidocaine hydrochloride 10 mg/ml injection (1 source) Antiarrhythmic, Amide Local Anesthetic Start: 03-06-20 End: 03-07-20 lidocaine PF 1 % injection 1 mL Lisinopril (1 source) Angiotensin Converting Enzyme Inhibitor Lisinopril Active methotrexate 5 mg oral tablet (1 source) Folate Analog Metabolic Inhibitor Methotrexate Sodium 5 MG as directed Orally Active 24 hr metoprolol succinate 25 mg extended release oral tablet (4 sources) beta-Adrenergic Elio Start: 09-05-19 take 1 tablet by mouth once daily metoprolol succinate (TOPROL XL) 25 MG extended release tablet take 1 tablet by mouth once daily 0 09/04/2021 Active take 1 tablet by raz th every twenty-four hours in the morning metoprolol succinate XL (TOPROL XL) 25 m g 24 hr tablet Take 1 tablet (25 mg total) by mouth in the morning. 0 Active take 25 mg by mouth once daily M ETOPROLOL SUCCINATE ORAL Take 25 mg by mouth once daily. 0 Active Comment on above: Take 25 mg by mouth once daily. 2 ml ondansetron 2 mg/ml injection (1 source) Serotonin-3 Receptor Antagonist Start: 3 End: 3 ondansetron (ZOFRAN) injection 4 mg oxyCODONE hydrochloride 5 mg oral tablet (1 source) Opioid Agonist Start: 3 End: 3 oxyCODONE (ROXICODONE) immediate release tablet 5 mg prazosin 1 mg oral capsule (3 sources) alpha-Adrenergic Elio take 1 capsule by mouth once daily prazosin (MINIPRESS) 1 mg capsule Take 1 capsule (1 mg total) by mouth nightly. 0 Active Prazosin HCl Act mehran Comment on above: Take 1 mg by mouth d aily at bedtime. 5 ml sodium chloride 9 mg/ml injection (4 sources) Start: 03-05-2023 sodium chloride flush 0.9 % injection 5-40 mL Start: 03-05-2023 0.9 % sodium c hloride infusion Start: 03-05-2023 sodium chlorid e flush 0.9 % injection 5-40 mL spironolactone 25 mg oral tablet (4 sources) Aldosterone Antagonist Start: 09-04-2021 take 0.5 tablet by mouth once daily spironolactone (ALDACTONE) 25 MG tablet take 1/2 tablet by mouth once daily 0 09/04/2021 Active take 1 tablet by mouth in the mo rning spironolactone (ALDACTONE) 25 mg tablet Take 1 tablet (25 mg total) by mouth in the morning. 0 Active Comment on above: Take 25 mg by mouth once daily. Completed/Discontinued Medications Medication Drug Class(es) Dates Sig (Normalized) Sig (Original) acetaminophen 325 mg oral tablet (1 source) take 2 tablets by mouth every six hours as needed acetaminophen (TYLENOL) 325 mg tablet Take 650 mg by mouth every 6 hours as needed. 0 Active Comment on above: Take 650 mg by mouth every 6 hours as needed. [id number] 200 actuat albuterol 0.09 mg/actuat metered dose inhaler (3 sources) beta2-Adrenergic Agonist Start: 05-16-2022 take 2 puff(s) by mouth every four hours albuterol HFA (PROVENTIL HFA, VENTOLIN HFA) 90 mcg/actuation inhaler INHALE 2 PUFFS BY MOUTH EVERY 4 HOURS IF NEEDED FOR SHORTNESS OF BREATH 0 05/16/2022 Active Start: 08-09-2021 take 2 puff(s) by mo [facility] every four hours as needed albuterol sulfate HFA 108 (90 Base) MCG/ACT inhaler INHALE 2 PUFFS BY MOUTH EVERY 4 HOURS NEEDED 0 08/09/2021 Active Comment on above: INHALE 2 PUFFS BY [facility] EVERY 4 HOURS IF NEEDED FOR SHORTNESS OF BREATH amitriptyline hydrochloride 25 mg oral tablet (2 sources) Tricyclic Antidepressant take 1 tablet by mouth once daily at bedtime amitriptyline (ELAVIL) 25 mg tablet Take 25 mg by mouth daily at bedtime. For insomnia 0 Active Comment on above: Take 25 mg by mouth daily at bedtime. For insomnia amphetamine aspartate 5 mg / amphetamine sulfate 5 mg / dextroamphetamine saccharate 5 mg / dextroamphetamine sulfate 5 mg oral tablet (2 sources) Central Nervous System Stimulant Start: 017 take 1 tablet by mouth once daily dextroamphetamine-a mphetamine (ADDERALL) 20 mg tablet Take 1 tablet by mouth once daily. 0 02/19/2017 Active Comment on above: Take 1 tablet by [facility] once daily. brexpiprazole 2 mg oral tablet (3 sources) Atypical Antipsychotic Rexulti 2mg 2mg Oral Not-Taking/PRN Comment on above: Take by mouth once d aily. For mental health capsaicin 0.75 mg/ml topical cream (1 source) capsaicin (ZOSTRIX-HP) 0.075 % topical cream Apply 1 application to affected area three times daily. 0 Active Comment on above: Apply 1 application to affected area three times daily. capsaicin [id number] mg/mg / lidocaine 0.045 mg/mg / menthol 0.1 mg/mg / methyl salicylate 0.275 mg/mg topical ointment (2 sources) Antiarrhythmic, Amide Local Anesthetic lidocain-me.salicyl -caps-menth 4.5 %-27.5 %- 0.0325 %-10 % oint Apply to affected area. To bilat knees daily 0 Active Comment on above: Apply to affected ar ea. To bilat knees daily diazePAM 5 mg oral tablet (2 sources) Benzodiazepine Start: 017 diazePAM (VALIUM) 5 mg tablet Take 1 tablet by mouth as needed. 30 tablet 0 02/19/2017 Active Comment on above: Take 1 tablet by raz th as needed. diclofenac sodium 75 mg extended release oral tablet (1 source) Nonsteroidal Anti-inflammatory Drug take 75 mg by mouth twice daily DICLOFENAC SODIUM ORAL Take 75 mg by mouth twice daily. 0 Active Comment on above: Take 75 mg by mouth twice daily. Fish Oils (1 source) take 1 capsule by mouth once daily as needed Fish Oil 1000 MG 1 capsule Orally Once a day Not-Taking/PRN FLUoxetine 40 mg oral capsule (3 sources) Serotonin Reuptake Inhibitor take 1 capsule by mouth every twenty-four hours PROzac 40 MG 1 capsule Orally Once a day 80 mg Not-Taking/PRN take 1 capsule by mo [facility] once daily, then take 4 capsules by mouth once daily FLUoxetine (PROZAC) 20 mg capsule Take 2 0 mg by mouth once daily. Taking 80mg po daily 0 Active Comment on above: Take 20 mg by mouth once daily. Taking 80mg po daily 30 actuat fluticasone furoate 0.1 mg/actuat / umeclidinium 0.0625 mg/actuat / vilanterol 0.025 mg/actuat dry powder inhaler (1 source) Anticholinergic, Corticosteroid, beta2-Adrenergic Agonist Start: 04-16-2022 take 1 puff(s) by mouth once daily TRELEGY ELLIPTA 100-62.5-25 mcg inhalation powder INHALE 1 PUFF BY MOUTH ONCE DAILY - - RINSE MOUTH AFTER USE 0 04/16/2022 Active Comment on above: INHALE 1 PUFF BY RAZ ONCE DAILY - - RINSE MOUTH AFTER USE gabapentin 600 mg oral tablet (3 sources) Anti-epileptic Agent take 1 tablet by mouth every eight hours Gabapentin 600 MG 1 tablet Orally Three times a day Not-Taking/PRN take 1 tablet by raz twice daily, then take 2 tablets by mouth once daily in the morning gabapentin (NEURONTIN) 600 mg tablet Daniele e 600 mg by mouth twice daily. Taking 1200mg po qam and pm 0 Active Comment on above: Take 600 mg by mouth twice daily. Taking 1200mg po qam and pm HYDROmorphone (2 sources) Opioid Agonist HYDROMORPHONE HC L (DILAUDID MISC) Implanted pain pump placed 07/10/16 0.04 infused q4hr (pt thinks) 0 Active Comment on above: Implanted pain pump placed 07/10/16 0.04 infused q4hr (pt thinks) hydrOXYzine hydrochloride 50 mg oral tablet (1 source) Antihistamine take 1 tablet by mouth twice daily hydrOXYzine HCl (ATARAX) 50 mg tablet Take 50 mg by mouth twice daily. 0 Active Comment on above: Take 50 mg by mouth twice daily. linseed oil 1000 mg oral capsule (1 source) Flax Seed Oil 10 00 MG Orally Not-Taking/PRN 30 actuat umeclidinium 0.0625 mg/actuat / vilanterol 0.025 mg/actuat dry powder inhaler (2 sources) Anticholinergic, beta2-Adrenergic Agonist umeclidinium-vilante ro l (ANORO ELLIPTA) 62.5-25 mcg/actuation inhaler Inhale 1 Inhalation as instructed once daily. One puff daily 0 Active Comment on above: Inhale 1 Inhalation as instructed once daily. One puff daily vitamin b12 5 mg sublingual tablet (2 sources) Vitamin B12 cyanocobalamin, vitamin B-12, 5,000 mcg subl Dissolve under the tongue once daily. 0 Active Comment on above: Dissolve under the t ongue once daily. Problems Active Problems Problem Classification Problem Date Documented Date Episodic/Chronic Anxiety disorders (1 source) Panic disorder; Translations: [Panic disorder [episodic paroxysmal anxiety]] Onset: 03-12-2017 03-12-2017 Chronic Chronic obstructive pulmonary disease and bronchiectasis (4 sources) Chronic obstructive pulmonary disease, unspecified; Translations: [COPD UNSPECIFIED] Onset: 04-10-2022 Chronic Diabetes mellitus without complication (1 source) Prediabetes; Translations: [PREDIABETES] Onset: 09-16-2022 Episodic Disorders of lipid metabolism (1 source) Dyslipidemia; Translations: [Hyperlipidemia, unspecified] Onset: 10-29-2021 10-29-2021 Chronic Immunizations and screening for infectious disease (1 source) Encounter for screening for human immunodeficiency virus [HIV]; Translations: [ENCOUNTER FOR SCREENING FOR HIV] Onset: 08-16-2022 Episodic Menstrual disorders (1 source) Irregular periods; Translations: [Irregular menstruation, unspecified] Chronic Mood disorders (2 sources) Recurrent major depressive episodes, moderate ; Translations: [Major depressive disorder, recurrent, moderate] Onset: 02-04-2017 02-04-2017 Chronic Nonmalignant breast conditions (1 source) Diffuse cystic mastopathy of right breast; Translations: [DIFFUSE CYSTIC MASTOPATHY RT BREAST] Onset: 06-12-2022 Chronic Osteoarthritis (13 sources) Unilateral primary osteoarthritis, right knee; Translations: [Bilateral primary osteoarthritis of knee] Onset: 11-21-2021 Chronic Other connective tissue disease (2 sources) Presence of right artificial knee joint; Translations: [Presence of right artificial knee joint] Onset: 09-18-2022 Chronic Other connective tissue disease (3 sources) Other specified soft tissue disorders; Translations: [OTHER SPEC SOFT TISSUE DISORDERS] Onset: 09-14-2022 Episodic Other diseases of veins and lymphatics (4 sources) Venous insufficiency (chronic) (peripheral); Translations: [VENOUS INSUFF CHRONIC PERIPHERAL] Onset: 10-09-2022 Episodic Other hematologic conditions (1 source) Elevated erythrocyte sedimentation rate; Translations: [ELEVATED ERYTHROCYTE SED RATE] Onset: 08-16-2022 Episodic Other nervous system disorders (1 source) Other chronic pain; Translations: [OTHER CHRONIC PAIN] Onset: 07-23-2022 Chronic Other nervous system disorders (2 sources) Carpal tunnel syndrome, bilateral upper limbs; Translations: [Carpal tunnel syndrome, bilateral upper limbs] Onset: 07-29-2023 Chronic Other non-traumatic joint disorders (4 sources) Pain in right knee; Translations: [PAIN IN RIGHT KNEE] Onset: 12-10-2021 Episodic Other non-traumatic joint disorders (1 source) Effusion, right knee; Translations: [EFFUSION, RIGHT KNEE] Onset: 12-10-2021 Episodic Other non-traumatic joint disorders (4 sources) Pain in unspecified joint; Translations: [PAIN IN UNSPECIFIED JOINT] Onset: 08-12-2022 Episodic Other nutritional; endocrine; and metabolic disorders (1 source) Body mass index (BMI) 40.0-44.9, adult; Translations: [BODY MASS INDEX BMI 40.0-44.9 ADULT] Onset: 04-20-2022 Chronic Other nutritional; endocrine; and metabolic disorders (2 sources) Morbid (severe) obesity due to excess calories; Translations: [Morbid (severe) obesity due to excess calories] Onset: 07-30-2023 Chronic Other nutritional; endocrine; and metabolic disorders (2 sources) Body mass index (BMI) 50.0-59.9, adult; Translations: [Body mass index (BMI) 50.0-59.9, adult] Onset: 07-30-2023 Chronic Other nutritional; endocrine; and metabolic disorders (1 source) Body mass index 40+ - severely obese; Translations: [Body mass index (BMI) 40.0-44.9, adult] Onset: 10-29-2021 10-29-2021 Chronic Other screening for suspected conditions (not mental disorders or infectious disease) (12 sources) Elevated C-reactive protein (CRP); Translations: [Other abnormal and inconclusive findings on diagnostic imaging of breast] Onset: 04-20-2022 Episodic Other skin disorders (4 sources) Localized swelling, mass and lump, right lower limb; Translations: [LOC SWELL MASS LUMP RT LOWER LIMB] Onset: 09-15-2022 Episodic Rheumatoid arthritis and related disease (4 sources) Rheumatoid arthritis, unspecified; Translations: [Rheumatoid arthritis without rheumatoid factor, unspecified site] Onset: 01-12-2023 Chronic Spondylosis; intervertebral disc disorders; other back problems (6 sources) Postlaminectomy syndrome, not elsewhere classified; Translations: [POSTLAMINECTOMY SYNDROME NEC] Onset: 05-19-2022 Chronic Substance-related disorders (3 sources) Nicotine dependence, cigarettes, uncomplicated; Translations: [Nicotine dependence, unspecified, uncomplicated] Onset: 09-16-2022 Chronic Unclassified (2 sources) XR Onset: 11-21-2021 Unclassified (1 source) PRIMARY OSTEOARTHRITS OTH SPEC SITE; Translations: [PRIMARY OSTEOARTHRITS OTH SPEC SITE] Onset: 08-16-2022 Unclassified (1 source) 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; Translations: [assisted (current) use of 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 agent] Onset: 02-07-2024 Past or Other Problems Problem Classification Problem Date Documented Date Episodic/Chronic E Codes: Adverse effects of medical drugs (4 sources) Adverse effect of loop [high-ceiling] diuretics, initial encounter; Translations: [ADVRS EFF LOOP HI-CEIL DIURETC INIT] Onset: 07-11-2022 Episodic Malaise and fatigue (5 sources) Other fatigue; Translations: [OTHER FATIGUE] Onset: 05-04-2022 Episodic Nonmalignant breast conditions (4 sources) Other signs and symptoms in breast; Translations: [OTHER SIGNS AND SYMPTOMS IN BREAST] Onset: 05-28-2022 Episodic Nonspecific chest pain (1 source) Chest pain; Translations: [Chest pain, unspecified] Onset: 10-29-2021 10-29-2021 Episodic Other aftercare (2 sources) 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; Translations: [Other usp (current) drug therapy] Onset: 01-12-2023 Episodic Other connective tissue disease (1 source) Myalgia, unspecified site; Translations: [MYALGIA UNSPECIFIED SITE] Onset: 07-23-2022 Episodic Residual codes; unclassified (1 source) Family history of malignant neoplasm of breast; Translations: [FAMILY HX MALIG NEOPLASM OF BREAST] Onset: 05-31-2022 Episodic Residual codes; unclassified (1 source) Tobacco user; Translations: [Tobacco use] Onset: 10-29-2021 10-29-2021 Episodic Skin and subcutaneous tissue infections (4 sources) Cellulitis of right lower limb; Translations: [Cellulitis, unspecified] Onset: 09-16-2022 Episodic Syncope (1 source) Syncope; Translations: [Syncope and collapse] Onset: 10-29-2021 10-29-2021 Episodic Unclassified (1 source) 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; Translations: [assisted (current) use of 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 agent] Onset: 07-30-2023 Results Test Name Value Interpretation Reference Range Facility Follow-Upon 07-30-2023 Follow-Up [id number] Jackie Mendoza 1975 F Date Provider Department Center 07/30/2023 [facility] Nila Heal Family History Problem Relation Age of Onset No Known Problems Father Family Status - Relation Status Age at Mother Notes: cancer brast ca, ovarian, skin, heart disease Father Level of Service:17785 LA OFFICE/OUTPATIENT ESTABLISHED MOD MDM 30 MIN () Reason for Visit and Comments: Follow-up [420240] [facility] 36on 07-28-2023 36 Letter will be at Check out Desk [facility] 36 Pt contacted, requested to pick letter up on 07/30/23 at her appointment [facility] 36on 07-27-2023 36 Pt is asking if it i s possible for her to have a note for work that excuses her on 07/23/23, 07/24/23 and 07/27/23; because of the great pain she has experienced. Normal [facility] CBC WITH AUTO DIFFERENTIALon 07-27-2023 Basophils (Bld) [#/Vol] 0.07 10*3/uL Normal 0.00-0.20 [facility] Comment on above: Performed By: #### L [id number] #### [facility] ([facility]) [address] [place] [address] Basophils/100 WBC (Bld) 0.8 % Normal 0.0-1.0 [facility] Comment on above: Performed By: #### L [id number] #### [facility] ([facility]) [address] [place] [address] Eosinophils (Bld) [#/Vol] 0.10 10*3/uL Normal 0.00-0.50 [facility] Comment on above: Performed By: #### L [id number] #### [facility] (BEAKER) [address] [place] [address] Eosinophils/100 WBC (Bld) 1.2 % Normal 0.0-6.0 [facility] Comment on above: Performed By: #### L [id number] #### [facility] ([facility]) [address] [place] [address] Erythrocyte distribution width (RBC) [Ratio] 15.9 % High 11.5-15.0 [facility] Comment on above: Performed By: #### L [id number] #### [facility] ([facility]) [address] [place] [address] ERYTHROCYTE MEAN CORPUSCULAR HEMOGLOBIN CONCENTRATION (G/DL) BY AUTOMATED 32.8 g/dL Normal 32.0-35.0 [facility] Comment on above: Performed By: #### L [id number] #### [facility] ([facility]) [address] [place] [address] Hematocrit (Bld) [Volume fraction] 41.5 % Normal 36.0-48.0 [facility] Comment on above: Performed By: #### L [id number] #### [facility] ([facility]) [address] [place] [address] Hemoglobin (Bld) [Mass/Vol] 13.6 g/dL Normal 12.0-15.0 [facility] Comment on above: Performed By: #### L [id number] #### [facility] ([facility]) [address] [place] [address] Immature granulocytes (Bld) [#/Vol] 0.02 10*3/uL Normal 0.00-0.20 [facility] Comment on above: Performed By: #### L [id number] #### [facility] ([facility]) [address] [place] [address] Immature granulocytes/100 WBC (Bld) 0.2 % Normal 0.0-1.0 [facility] Comment on above: Performed By: #### L [id number] #### [facility] ([facility]) [address] [place] [address] Lymphocytes (Bld) [#/Vol] 1.89 10*3/uL Normal 1.20-4.00 [facility] Comment on above: Performed By: #### L [id number] #### [facility] ([facility]) [address] [place] [address] Lymphocytes/100 WBC (Bld) 22.5 % Normal 20.0-45.0 [facility] Comment on above: Performed By: #### L [id number] #### [facility] ([facility]) [address] [place] [address] MCH (RBC) [Entitic mass] 28.8 pg Normal 27.0-33.0 [facility] Comment on above: Performed By: #### L [id number] #### [facility] ([facility]) [address] [place] [address] MCV (RBC) [Entitic vol] 87.7 fL Normal 82.0-98.0 [facility] Comment on above: Performed By: #### L [id number] #### [facility] ([facility]) [address] [place] [address] Monocytes (Bld) [#/Vol] 0.61 10*3/uL Normal 0.10-1.00 [facility] Comment on above: Performed By: #### L [id number] #### [facility] ([facility]) [address] [place] [address] Monocytes/100 WBC (Bld) 7.3 % Normal 5.0-12.0 [facility] Comment on above: Performed By: #### L [id number] #### [facility] ([facility]) [address] [place] [address] Neutrophils (Bld) [#/Vol] 5.71 10*3/uL Normal 1.60-7.60 [facility] Comment on above: Performed By: #### L [id number] #### [facility] ([facility]) [address] [place] [address] Neutrophils/100 WBC (Bld) 68.0 % Normal 40.0-72.0 [facility] Comment on above: Performed By: #### L [id number] #### [facility] ([facility]) [address] [place] [address] NRBC (PER 100 WBCS) BY AUTOMATED COUNT 0.0 % Normal 0 [facility] Comment on above: Performed By: #### L [id number] #### [facility] ([facility]) [address] [place] [address] PLATELETS (10*3/UL) IN BLOOD AUTOMATED COUNT 240 10*3/uL Normal 150-400 [facility] Comment on above: Performed By: #### L [id number] #### [facility] ([facility]) [address] [place] [address] RBC (Bld) [#/Vol] 4.73 10*6/uL Normal 3.80-5.00 [facility] Comment on above: Performed By: #### L [id number] #### [facility] ([facility]) [address] [place] [address] WBC (Bld) [#/Vol] 8.40 10*3/uL Normal 4.00-10.60 [facility] Comment on above: Performed By: #### L [id number] #### [facility] ([facility]) [address] [place] [address] COMPREHENSIVE METABOLIC PANE Jamar 07-27-2023 Albumin [Mass/Vol] 4.3 g/dL Normal 3.5-5.7 [facility] Comment on above: Performed By: #### L [id number] ####[facility] ([facility])[address] [place] [address] ALP [Catalytic activity/Vol] 80 U/L Normal 34-104 [facility] Comment on above: Performed By: #### L [id number] ####[facility] ([facility])[address] [place] [address] ALT [Catalytic activity/Vol] 13 U/L Normal 7-52 [facility] Comment on above: Performed By: #### L [id number] ####[facility] ([facility])[address] [place] [address] Anion gap [Moles/Vol] 11 mmol/L Normal 7-20 [facility] Comment on above: Performed By: #### L [id number] ####[facility] ([facility])[address] [place] [address] AST [Catalytic activity/Vol] 14 U/L Normal 13-39 [facility] Comment on above: Performed By: #### L [id number] ####[facility] ([facility])[address] [place] [address] Bilirubin [Mass/Vol] 0.4 mg/dL Normal 0.3-1.0 [facility] Comment on above: Performed By: #### L [id number] ####[facility] ([facility])[address] [place] [address] Calcium [Mass/Vol] 9.0 mg/dL Normal 8.6-10.3 [facility] Comment on above: Performed By: #### L [id number] ####[facility] ([facility])[address] [place] [address] Chloride [Moles/Vol] 105 mmol/L Normal 98-107 [facility] Comment on above: Performed By: #### L [id number] ####[facility] ([facility])[address] [place] [address] CO2 [Moles/Vol] 26 mmol/L Normal 21-31 [facility] Comment on above: Performed By: #### L [id number] ####[facility] ([facility])[address] [place] [address] Creatinine [Mass/Vol] 0.79 mg/dL Normal 0.60-1.20 [facility] Comment on above: Performed By: #### L [id number] ####[facility] ([facility])[address] [place] [address] GLOMERULAR FILTRATION RATE ML/MIN/1.73 SQ M.PREDICTED 91.1 mL/min/1.73m*2 Normal >60.0 [facility] Comment on above: Result Comment: The [facility]???s estimated glomerular filtration rate (eGFR) will no longer include consideration of race in its calculation. The National Kidney Foundation???s eGFR Task Force developed new recommendations for the estimation of the glomerular filtration rate in the [place] They recommend immediate implementation of the new equation refit without the race variable in all laboratories because the calculation does not include race. In addition to not including race in the calculation and reporting, it included diversity in its development, and has acceptable performance characteristics and potential consequences that do not disproportionately affect any one group of individuals. Performed By: #### L [id number] ####[facility] ([facility])[address] [place] [address] Glucose [Mass/Vol] 96 mg/dL Normal 70-100 [facility] Comment on above: Performed By: #### L [id number] ####[facility] ([facility])[address] [place] [address] Potassium [Moles/Vol] 3.9 mmol/L Normal 3.5-5.1 [facility] Comment on above: Performed By: #### L [id number] ####[facility] ([facility])[address] [place] [address] Protein [Mass/Vol] 6.9 g/dL Normal 6.0-8.3 [facility] Comment on above: Performed By: #### L [id number] ####[facility] ([facility])[address] [place] [address] Sodium [Moles/Vol] 138 mmol/L Normal 136-145 [facility] Comment on above: Performed By: #### L [id number] ####[facility] ([facility])[address] [place] [address] Urea nitrogen [Mass/Vol] 14 mg/dL Normal 7-25 [facility] Comment on above: Performed By: #### L [id number] ####[facility] ([facility])[address] [place] [address] UREA NITROGEN/CREATININE (MASS RATIO) IN SER/PLAS 17.7 Normal [facility] Comment on above: Performed By: #### L [id number] ####[facility] ([facility])[address] [place] [address] Follow-Upon 07-27-2023 Follow-Up [id number] Jackie Mendoza 1975 F Date Provider Department [place] [facility] N[facility] Heal Family History Problem Relation Age of Onset No Known Problems Father Family Status - Relation Status Age at Mother Notes: cancer brast ca, ovarian, skin, heart disease Father Level of Service:57125 [place] OFFICE/OUTPATIENT ESTABLISHED MOD MDM 30 MIN (GC) Reason for Visit and Comments: Follow-up [[id number]] Normal [facility] Orders Onlyon 07-27-2023 Orders Only [id number] Jackie Mendoza 1975 F Date Provider Department Center 07/27/2023 JOEY OLIVIER [facility] Nila Heal Family History Problem Relation Age of Onset No Known Problems Father Family Status - Relation Status Age at Mother Notes: cancer brast ca, ovarian, skin, heart disease Father Normal [facility] DRUG SCREEN, UR-RFLEX CONFIR 07-14-2023 ALCOHOL, UR. Negative Normal (< 10 - Cutof) [facility] Comment on above: Order Comment: FACIL ITY: [facility] [id number] Performed By: #### D S-M+ #### [facility] [address] [facility], [address] AMPHETAMINES, UR. Negative Normal (< 500 - Cutof) [facility] Comment on above: Order Comment: FACIL ITY: [facility] [id number] Performed By: #### D S-M+ #### [facility] [address] [facility], [address] BARBITURATES, UR. Negative Normal (< 300 - Cutof) [facility] Comment on above: Order Comment: FACIL ITY: [facility] [id number] Performed By: #### D S-M+ #### [facility] [address] [facility], [address] BENZODIAZEPINES, UR. Negative Normal (< 100 - Cutof) [facility] Comment on above: Order Comment: FACIL ITY: [facility] [id number] Performed By: #### D S-M+ #### [facility] [address] [place], [address] COCAINE METAB. UR. Negative Normal (< 150 - [facility]) [facility] Comment on above: Order Comment: FACIL ITY: [facility] [id number] Performed By: #### D S-M+ #### [facility] [address] [facility], [address] CREAT, URINE 35.91 MG/DL Normal (20.00 - 320.0) [facility] Comment on above: Order Comment: FACIL ITY: [facility] [id number] Performed By: #### D S-M+ #### [facility] [address] [facility], [address] FENTANYL, UR SCREEN Positive High (< 1.0 - Cutof) [facility] Comment on above: Order Comment: FACIL ITY: [facility] [id number] Result Comment: FENT ANYL URINE SCREEN = POSITIVE Specimen sent for confirmation testing forfentanyl - [facility] test # [id number] Performed By: #### D S-M+ #### [facility] [address] [facility], [address] HEROIN METAB. UR. Negative Normal (< 10 - Cutof) [facility] Comment on above: Order Comment: FACIL ITY: [facility] [id number] Performed By: #### D S-M+ #### [facility] [address] [facility], [address] METHADONE METAB. UR. Negative Normal (< 100 - Cutof) [facility] Comment on above: Order Comment: FACIL ITY: [facility] [id number] Performed By: #### D S-M+ #### [facility] [address] [facility], [address] OPIATES, UR. Negative Normal (< 100 - Cutof) [facility] Comment on above: Order Comment: FACIL ITY: [facility] [id number] Performed By: #### D S-M+ #### [facility] [address] [place], [address] OXYCODONE, UR. Negative Normal (< 100 - Cutof) [facility] Comment on above: Order Comment: FACIL ITY: [facility] [id number] Performed By: #### D S-M+ #### [facility] [address] [place], [address] pH (U) 5.0 [pH] Normal (5.0 - 9.0) [facility] Comment on above: Order Comment: FACIL ITY: [facility] [id number] Performed By: #### D S-M+ #### [facility] [address] [place], [address] PHENCYCLIDINE, UR. Negative Normal (< 25 - Cutof) [facility] Comment on above: Order Comment: [facility] [id number] Performed By: #### D S-M+ #### [facility] [address] [place], [address] THC METABOLITE, UR. Positive High (< 20 - Cutof) [facility] Comment on above: Order Comment: FACIL ITY: [facility] [id number] Result Comment: THC METABOLITE URINE SCREEN = POSITIVE Specimen sent for confirmation testing for THC - [facility] test # [id number] Performed By: #### D S-M+ #### [facility] [address] [place], [address] TRAMADOL, UR SCREEN Negative Normal (< 200 - Cutof) [facility] Comment on above: Order Comment: FACIL ITY: [facility] [id number] Result Comment: This drug testing is for medical treatment only. Analysis was performed as non-forensic testing and the results should be used only by healthcare providers to render diagnosis or treatment, or to monitor the progress of medical conditions. Performed By: #### D S-M+ #### [facility] [address] [facility], [address] Follow-Upon 04-27-2023 Follow-Up [id number] Jackie Mendoza 1975 F Date Provider Department Center 04/27/2023 [facility]CDONNELL [facility] Nila Heal Family History Problem Relation Age of Onset No Known Problems Father Family Status - Relation Status Age at Mother Notes: cancer brast ca, ovarian, skin, heart disease Father Level of Service:17451 [place] OFFICE/OUTPATIENT ESTABLISHED MOD MDM 30-39 MIN (GC) Reason for Visit and Comments: Follow-up [[id number]] Normal [facility] DRUG SCREEN, UR-RFLEX CONFIR 04-09-2023 ALCOHOL, UR. Negative Normal (< 10 - Cutof) [place] [facility] Comment on above: Order Comment: FACIL ITY: [facility] [id number] Performed By: #### D S-M+ #### [facility] [address] [facility], [address] AMPHETAMINES, UR. Negative Normal (< 500 - Cutof) [facility] Comment on above: Order Comment: FACIL ITY: [facility] [id number] Performed By: #### D S-M+ #### [facility] [address] [facility], [address] BARBITURATES, UR. Negative Normal (< 300 - Cutof) [facility] Comment on above: Order Comment: FACIL ITY: [facility] [id number] Performed By: #### D S-M+ #### [facility] [address] [place], [address] BENZODIAZEPINES, UR. Negative Normal (< 100 - Cutof) [facility] Comment on above: Order Comment: FACIL ITY: [facility] [id number] Performed By: #### D S-M+ #### [facility] [address] [facility], [address] COCAINE METAB. UR. Negative Normal (< 150 - Cutof) [place] [facility] Comment on above: Order Comment: FACIL ITY: [facility] [id number] Performed By: #### D S-M+ #### [facility] [address] [place], [address] CREAT, URINE 27.04 MG/DL Normal (20.00 - 320.0) [place] [facility] Comment on above: Order Comment: FACIL ITY: [facility] [id number] Performed By: #### D S-M+ #### [facility] [address] [place], [address] FENTANYL, UR SCREEN Negative Normal (< 1.0 - Cutof) [facility] Comment on above: Order Comment: FACIL ITY: [facility] [id number] Performed By: #### D S-M+ #### [facility] [address] [place], [address] HEROIN METAB. UR. Negative Normal (< 10 - Cutof) [facility] Comment on above: Order Comment: FACIL ITY: [facility] [id number] Performed By: #### D S-M+ #### [facility] [address] [place], [address] METHADONE METAB. UR. Negative Normal (< 100 - Cutof) [facility] Comment on above: Order Comment: FACIL ITY: [facility] [id number] Performed By: #### D S-M+ #### [facility] [address] [place], [address] OPIATES, UR. Negative Normal (< 100 - Cutof) [place] [facility] Comment on above: Order Comment: FACIL ITY: [facility] [id number] Performed By: #### D S-M+ #### [facility] [address] [place], [address] OXYCODONE, UR. Negative Normal (< 100 - Cutof) [facility] Comment on above: Order Comment: FACIL ITY: [facility] [id number] Performed By: #### D S-M+ #### [facility] [address] [place], [address] pH (U) 7.0 [pH] Normal (5.0 - 9.0) [facility] Comment on above: Order Comment: FACIL ITY: [facility] [id number] Performed By: #### D S-M+ #### [facility] [address] [place], [address] PHENCYCLIDINE, UR. Negative Normal (< 25 - Cutof) [facility] Comment on above: Order Comment: FACIL ITY: [facility] [id number] Performed By: #### D S-M+ #### [facility] [address] [place], [address] THC METABOLITE, UR. Positive High (< 20 - Cutof) [facility] Comment on above: Order Comment: FACIL ITY: [facility] [id number] Result Comment: THC METABOLITE URINE SCREEN = POSITIVE Specimen sent for confirmation testing for THC - [facility] test # [id number] Performed By: #### D S-M+ #### [facility] [address] [place], [address] TRAMADOL, UR SCREEN Negative Normal (< 200 - Cutof) [facility] Comment on above: Order Comment: FACIL ITY: [facility] [id number] Result Comment: This drug testing is for medical treatment only. Analysis was performed as non-forensic testing and the results should be used only by healthcare providers to render diagnosis or treatment, or to monitor the progress of medical conditions. Performed By: #### D S-M+ #### [place] [facility] [address] [place], [address] CBCon 03-05-2023 Erythrocyte distribution width (RBC) [Ratio] 15.0 % High 11.8-14.[address] [facility] Comment on above: Performed By: #### C BC #### [facility] [address] [place] [address] Or Manager: Harjit Flores MD Hematocrit (Bld) [Volume fraction] 39.9 % Normal 36.3-47.[address] [facility] Comment on above: Performed By: #### C BC #### [facility] [address] [place] [address] Or Manager: Harjit Flores MD Hemoglobin (Bld) [Mass/Vol] 13.2 g/dL Normal 11.9-15.[address] [facility] Comment on above: Performed By: #### C BC #### [facility] [address] [facility] [place] [address] Or Manager: Harjit Flores MD MCH (RBC) [Entitic mass] 29.9 pg Normal 25.2-33.[address] [facility] Comment on above: Performed By: #### C BC #### [facility] [address] [facility] [place] [address] Or Manager: Harjit Flores MD MCHC (RBC) [Mass/Vol] 33.1 g/dL Normal 28.4-34.[address] [facility] Comment on above: Performed By: #### C BC #### [facility] [address] [facility] [place] [address] Or Manager: Harjit Flores MD MCV (RBC) [Entitic vol] 90.3 fL Normal 82.6-102.[address] [facility] Comment on above: Performed By: #### C BC #### [facility] [address] [place] [address] Or Manager: Harjit Flores MD NRBC Automated 0.0 per 100 WBC Normal 0.[address] [facility] Comment on above: Performed By: #### C BC #### [facility] [address] [place] [address] Or Manager: Harjit Flores MD Platelet mean volume (Bld) [Entitic vol] 10.4 fL Normal 8.1-13.5 [facility] Comment on above: Performed By: #### C BC #### [facility] [address] [place] [address] Or Manager: Harjit Flores MD Platelets (Bld) [#/Vol] 209 10*3/uL Normal 138-[address] [facility] Comment on above: Performed By: #### C BC #### [facility] [place] [address] Or Manager: Harjit Flores MD RBC (Bld) [#/Vol] 4.42 10*6/uL Normal 3.95-5.[address] [facility] Comment on above: Performed By: #### C BC #### [facility] [address] [place] [address] Or Manager: Harjit Flores MD WBC (Bld) [#/Vol] 7.1 10*3/uL Normal 3.5-11.[address] [facility] Comment on above: Performed By: #### C BC #### [facility] [address] [place] [address] Or Manager: Harjit Flores MD Erythrocyte distribution width (RBC) [Ratio] 15.0 % High 11.8 - 14.4 % [facility] Hematocrit (Bld) [Volume fraction] 39.9 % 36.3 - 47.1 % [facility] Hemoglobin (Bld) [Mass/Vol] 13.2 g/dL 11.9 - 15.1 g/dL [facility] Interpretation and review of laboratory results Abnormal [facility] MCH (RBC) [Entitic mass] 29.9 pg 25.2 - 33.[address] [facility] MCHC (RBC) [Mass/Vol] 33.1 g/dL 28.4 - 34.8 g/dL [facility] MCV (RBC) [Entitic vol] 90.3 fL 82.6 - 102.[address] [facility] Nucleated RBC/100 WBC (Bld) [Ratio] 0.0 % 0.0 per [address] [facility] Platelet mean volume (Bld) [Entitic vol] 10.4 fL 8.1 - 13.[address] [facility] Platelets (Bld) [#/Vol] 209 10*3/uL [facility] RBC (Bld) [#/Vol] 4.42 10*6/uL 3.95 - 5.1 1 m/uL [facility] WBC other (Bld) [#/Vol] 7.1 [facility] POCT urine pregnancyon 03-05 Beta HCG ( test) Ql (U) Negative NEGATIVE [facility] Comment on above: Specimens with hCG l evels near the threshold of the test (25 mIU/mL) may give a negative or indeterminate result. In such cases, another test should be performed with a new specimen in 48-72 hours. If early is suspected clinically in this setting, correlation with quantitative serum b-hCG level is suggested. [facility] Basic Metabolic Profon 02-19 Anion gap [Moles/Vol] 10 mmol/L Normal -[address] [facility] Comment on above: Performed By: #### G LYHGB #### [facility] [address] [place] [address] Or Manager: Saw Elizondo MD #### BMP #### [facility] [address] [place] [address] Or Manager: Hrajit Flores MD BUN/CRE Ratio 14 Normal 9-20 [facility] Comment on above: Performed By: #### G LYHGB #### [address] [address] Or Manager: Saw Elizondo MD #### BMP #### [facility] [address] [place] [address] Or Manager: Harjit Flores MD Calcium [Mass/Vol] 9.3 mg/dL Normal 8.6-10.[address] [facility] Comment on above: Performed By: #### G LYHGB #### [address] [address] Or Manager: Saw Elizondo MD #### BMP #### [facility] [address] [place] [address] Or Manager: Harjit Flores MD Chloride [Moles/Vol] 103 mmol/L Normal 98-107 [facility] Comment on above: Performed By: #### G LYHGB #### [address] [address] Or Manager: Saw Elizondo MD #### BMP #### [facility] [address] [place] [address] Or Manager: Harjit Flores MD CO2 [Moles/Vol] 24 mmol/L Normal 20-[address] [facility] Comment on above: Performed By: #### G LYHGB #### [address] [address] Or Manager: Saw Elizondo MD #### BMP #### [facility] [address] [place] [address] Or Manager: Harjit Flores MD Creatinine [Mass/Vol] 0.8 mg/dL Normal 0.5-0.[address] [facility] Comment on above: Performed By: #### G LYHGB #### [address] [address] Or Manager: Saw Elizondo MD #### BMP #### [facility] [address] [place] [address] Or Manager: Harjit Flores MD GFR/1.73 sq M.predicted among non-blacks MDRD (S/P/Bld) [Vol rate/Area] mL/min/{1.73_m2} Normal >[address] [facility] Comment on above: Result Comment: These results are not intended for use in patients <18 years of age. eGFR results are calculated without a race factor using the 2020 CKD-EPI equation. Careful clinical correlation is recommended, particularly when comparing to results calculated using previous equations. The CKD-EPI equation is less accurate in patients with extremes of muscle mass, extra-renal metabolism of creatine, excessive creatine ingestion, or following therapy that affects renal tubular secretion. Performed By: #### G LYHGB #### [address] [address] Or Manager: Saw Elizondo MD #### BMP #### [facility] [address] [place] [address] Or Manager: Harjit Flores MD Glucose [Mass/Vol] 126 mg/dL High 70-[address] [facility] Comment on above: Performed By: #### G LYHGB #### [address] [address] Or Manager: Saw Elizondo MD #### BMP #### [facility] [address] [place] [address] Or Manager: Harjit Flores MD Potassium [Moles/Vol] 4.0 mmol/L Normal 3.7-5.[address] [facility] Comment on above: Performed By: #### G LYHGB #### [facility] [address] [place] [address] Or Manager: Saw Elizondo MD #### BMP #### [facility] [address] [place] [address] Or Manager: Harjit Flores MD Sodium [Moles/Vol] 137 mmol/L Normal 135-[address] [facility] Comment on above: Performed By: #### G LYHGB #### [facility] [address] [place] [address] Or Manager: Saw Elizondo MD #### BMP #### [facility] [address] [place] [address] Or Manager: Harjit Flores MD Urea nitrogen [Mass/Vol] 11 mg/dL Normal 6-[address] [facility] Comment on above: Performed By: #### G LYHGB #### [facility] [address] [place] [address] Or Manager: Saw Elizondo MD #### BMP #### [facility] [address] [place] [address] Or Manager: Harjit Flores MD CBCon 02-19-2023 Erythrocyte distribution width (RBC) [Ratio] 15.0 % High 11.8-14.[address] [facility] Comment on above: Performed By: #### C BC #### [facility] [address] [place] [address] Or Manager: Harjit Flores MD Hematocrit (Bld) [Volume fraction] 40.2 % Normal 36.3-47.[address] [facility] Comment on above: Performed By: #### C BC #### [facility] [address] [place] [address] Or Manager: Harjit Flores MD Hemoglobin (Bld) [Mass/Vol] 13.3 g/dL Normal 11.9-15.[address] [facility] Comment on above: Performed By: #### C BC #### [facility] [address] [place] [address] Or Manager: Harjit Flores MD MCH (RBC) [Entitic mass] 29.6 pg Normal 25.2-33.[address] [facility] Comment on above: Performed By: #### C BC #### [facility] [address] [facility] [place] [address] Or Manager: Harjit Flores MD MCHC (RBC) [Mass/Vol] 33.1 g/dL Normal 28.4-34.[address] [facility] Comment on above: Performed By: #### C BC #### [facility] [place] [address] Or Manager: Harjit Flores MD MCV (RBC) [Entitic vol] 89.3 fL Normal 82.6-102.[address] [facility] Comment on above: Performed By: #### C BC #### [facility] [address] [place] [address]. [place] [address] Or Manager: Harjit Flores MD NRBC Automated 0.0 per 100 WBC Normal 0.[address] [facility] Comment on above: Performed By: #### C BC #### [facility] [facility] [place] [address] Or Manager: Harjit Flores MD Platelet mean volume (Bld) [Entitic vol] 9.9 fL Normal 8.1-13.5 [facility] Comment on above: Performed By: #### C BC #### [facility] [address] [place], [place] [address]ia [facility] [place] [address] Or Manager: Harjit Flores MD Platelets (Bld) [#/Vol] 237 10*3/uL Normal 138-[address] [facility] Comment on above: Performed By: #### C BC #### [facility] [address] [facility] [place] [address] Or Manager: Harjit Flores MD RBC (Bld) [#/Vol] 4.50 10*6/uL Normal 3.95-5.[address] [facility] Comment on above: Performed By: #### C BC #### [facility] [address] [place] [address] Or Manager: Harjit Flores MD WBC (Bld) [#/Vol] 9.6 10*3/uL Normal 3.5-11.[address] [facility] Comment on above: Performed By: #### C BC #### [facility] [address] [place] [address] Or Manager: Harjit Flores MD Hemoglobin A1Con 02-19-2023 Glucose [Mass/Vol] 123 mg/dL Normal [facility] Comment on above: Result Comment: The ADA and AACC recommend providing the estimated average glucose result to permit better patient understanding of their HBA1c result. Performed By: #### G LYHGB #### [address] [address] Or Manager: Saw Elizondo MD #### BMP #### [facility] [address] [place] [address] Or Manager: Harjit Flores MD HbA1c (Bld) [Mass fraction] 5.9 % Normal 4.0-6.[address] [facility] Comment on above: Performed By: #### G LYHGB #### [facility] [address] [place], [place] [id number] Or Manager: Saw Elizondo MD #### BMP #### [facility] [address] [place], [place] [address] Or Manager: Harjit Flores MD Follow-Upon 01-12-2023 Follow-Up [id number] Jackie Mendoza Negra 1975 F Date Provider Department Center 01/12/2023 [facility] Nila Heal Family History Problem Relation Age of Onset No Known Problems Father Family Status - Relation Status Age at Mother Notes: cancer brast ca, ovarian, skin, heart disease Father Level of Service:98458 [place] OFFICE/OUTPATIENT ESTABLISHED MOD MDM 30-39 MIN Reason for Visit and Comments: Follow-up [453244] Normal [facility] DRUG SCREEN, UR-RFLEX CONFIR 01-06-2023 ALCOHOL, UR. Negative Normal (< 10 - Cutof) [facility] Comment on above: Order Comment: FACIL ITY: [facility] [id number] Performed By: #### D S-M+ #### [facility] [address] [facility], [address] AMPHETAMINES, UR. Negative Normal (< 500 - Cutof) [facility] Comment on above: Order Comment: FACIL ITY: [facility] [id number] Performed By: #### D S-M+ #### [facility] [address] [facility], [address] BARBITURATES, UR. Negative Normal (< 300 - Cutof) [facility] Comment on above: Order Comment: FACIL ITY: [facility] [id number] Performed By: #### D S-M+ #### [facility] [address] [facility], [address] BENZODIAZEPINES, UR. Positive High (< 100 - Cutof) [facility] Comment on above: Order Comment: FACIL ITY: [facility] [id number] Result Comment: AAKASH ODIAZEPINES URINE SCREEN = POSITIVE Specimen sent for confirmation testing for benzodiazepines - [facility] test # [id number] Performed By: #### D S-M+ #### [facility] [address] [facility], [address] COCAINE METAB. UR. Negative Normal (< 150 - Cutof) [facility] Comment on above: Order Comment: FACIL ITY: [facility] [id number] Performed By: #### D S-M+ #### [facility] [address] [facility], [address] CREAT, URINE 64.85 MG/DL Normal (20.00 - 320.0) [facility] Comment on above: Order Comment: FACIL ITY: [facility] [id number] Performed By: #### Ari S-M+ #### [facility] [address] [facility], [address] FENTANYL, UR SCREEN Negative Normal (< 1.0 - Cutof) [facility] Comment on above: Order Comment: FACIL ITY: [facility] [id number] Performed By: #### Ari S-M+ #### [facility] [address] [facility], [address] HEROIN METAB. UR. Negative Normal (< 10 - Cutof) [facility] Comment on above: Order Comment: [facility] [id number] Performed By: #### D S-M+ #### [facility] [address] [facility], [address] METHADONE METAB. UR. Negative Normal (< 100 - Cutof) [facility] Comment on above: Order Comment: [facility] [id number] Performed By: #### D S-M+ #### [facility] [address] [place], [address] OPIATES, UR. Negative Normal (< 100 - Cutof) [facility] Comment on above: Order Comment: FACIL ITY: [facility] [id number] Performed By: #### D S-M+ #### [facility] [facility] [address] [place], [address] OXYCODONE, UR. Negative Normal (< 100 - Cutof) [facility] Comment on above: Order Comment: FACIL ITY: [facility] [id number] Performed By: #### D S-M+ #### [facility] [facility] [address] [place], [address] pH (U) 5.5 [pH] Normal (5.0 - 9.0) [facility] Comment on above: Order Comment: FACIL ITY: [facility] [id number] Performed By: #### D S-M+ #### [facility] [facility] [address] [place], [address] PHENCYCLIDINE, UR. Negative Normal (< 25 - Cutof) [facility] Comment on above: Order Comment: [facility]IL ITY[facility] [id number] Performed By: #### D S-M+ #### [facility] [facility] [address] [place], [address] THC METABOLITE, UR. Positive High (< 20 - Cutof) [facility] Comment on above: Order Comment: FACIL ITY: [facility] [id number] Result Comment: THC METABOLITE URINE SCREEN = POSITIVE Specimen sent for confirmation testing for THC - [facility] test # [id number] Performed By: #### D S-M+ #### [facility] [facility] [address] [place], [address] TRAMADOL, UR SCREEN Negative Normal (< 200 - Cutof) [facility] Comment on above: Order Comment: FACIL ITY: [facility] [id number] Result Comment: This drug testing is for medical treatment only. Analysis was performed as non-forensic testing and the results should be used only by healthcare providers to render diagnosis or treatment, or to monitor the progress of medical conditions. Performed By: #### D S-M+ #### [facility] [address] [facility], [address] GLYCOHEMOGLOBIN A1Con 2022 ADA RECOMMENDATION SEE BELOW Normal [facility] Comment on above: Result Comment: ADA RECOMMENDED LIMIT 4.0 - 6.0 ADA THERAPEUTIC TARGET < 7.0 ACTION SUGGESTED > 7.0 Performed By: #### D ATA1C #### [facility] [address] [address] [address] Brock Elias Glucose [Mass/Vol] 128 mg/dL Normal [facility] Comment on above: Performed By: #### D ATA1C #### [facility] [address] [address] [address] Brock Elias HbA1c (Bld) [Mass fraction] 6.1 % Normal 4.5-6.2 [facility] Comment on above: Performed By: #### D ATA1C #### [facility] [address] [address] [address] Brock Elias C-REACTIVE PROTEINon 023 C REACTIVE PROTEIN (MG/L) IN SER/PLAS 7.5 mg/L High 0.0-7.0 [facility] Comment on above: Performed By: #### L [id number] ####[facility] ([facility])[address] [place] [address] CBC WITH AUTO DIFFERENTIALon 10-27-2022 Basophils (Bld) [#/Vol] 0.05 10*3/uL Normal 0.00-0.20 [facility] Comment on above: Performed By: #### L [id number] ####[facility] ([facility])[address] [place] [address] Basophils/100 WBC (Bld) 0.6 % Normal 0.0-1.0 [facility] Comment on above: Performed By: #### L [id number] ####[facility] ([facility])[address] [place] [address] Eosinophils (Bld) [#/Vol] 0.14 10*3/uL Normal 0.00-0.50 [facility] Comment on above: Performed By: #### L [id number] ####[facility] ([facility])[address] [place] [address] Eosinophils/100 WBC (Bld) 1.7 % Normal 0.0-6.0 [facility] Comment on above: Performed By: #### L [id number] ####[facility] ([facility])[address] [place] [address] Erythrocyte distribution width (RBC) [Ratio] 15.1 % High 11.5-15.0 [facility] Comment on above: Performed By: #### L [id number] ####[facility] ([facility])[address] [place] [address] ERYTHROCYTE MEAN CORPUSCULAR HEMOGLOBIN CONCENTRATION (G/DL) BY AUTOMATED 33.3 g/dL Normal 32.0-35.0 [facility] Comment on above: Performed By: #### L [id number] ####[facility] ([facility])[address] [place] [address] Hematocrit (Bld) [Volume fraction] 42.7 % Normal 36.0-48.0 [facility] Comment on above: Performed By: #### L [id number] ####[facility] ([facility])[address] [place] [address] Hemoglobin (Bld) [Mass/Vol] 14.2 g/dL Normal 12.0-15.0 [facility] Comment on above: Performed By: #### L [id number] ####[facility] ([facility])[address] [place] [address] Immature granulocytes (Bld) [#/Vol] 0.02 10*3/uL Normal 0.00-0.20 [facility] Comment on above: Performed By: #### L [id number] ####[facility] ([facility])[address] [place] [address] Immature granulocytes/100 WBC (Bld) 0.2 % Normal 0.0-1.0 [facility] Comment on above: Performed By: #### L [id number] ####[facility] ([facility])[address] [place] [address] Lymphocytes (Bld) [#/Vol] 2.07 10*3/uL Normal 1.20-4.00 [facility] Comment on above: Performed By: #### L [id number] ####[facility] ([facility])[address] [place] [address] Lymphocytes/100 WBC (Bld) 24.7 % Normal 20.0-45.0 [facility] Comment on above: Performed By: #### L [id number] ####[facility] ([facility])[address] [place] [address] MCH (RBC) [Entitic mass] 29.1 pg Normal 27.0-33.0 [facility] Comment on above: Performed By: #### L [id number] ####[facility] ([facility])[address] [place] [address] MCV (RBC) [Entitic vol] 87.5 fL Normal 82.0-98.0 [facility] Comment on above: Performed By: #### L [id number] ####[facility] ([facility] [place] [address] Monocytes (Bld) [#/Vol] 0.52 10*3/uL Normal 0.10-1.00 [facility] Comment on above: Performed By: #### L [id number] ####[facility] ([facility] [place] [address] Monocytes/100 WBC (Bld) 6.2 % Normal 5.0-12.0 [facility] Comment on above: Performed By: #### L [id number] ####[facility] ([facility])[address] [place] [address] Neutrophils (Bld) [#/Vol] 5.58 10*3/uL Normal 1.60-7.60 [facility] Comment on above: Performed By: #### L [id number] ####[facility] ([facility])[address] [place] [address] Neutrophils/100 WBC (Bld) 66.6 % Normal 40.0-72.0 [facility] Comment on above: Performed By: #### L [id number] ####[facility] ([facility] [place] [address] NRBC (PER 100 WBCS) BY AUTOMATED COUNT 0.0 % Normal 0 [facility] Comment on above: Performed By: #### L [id number] ####[facility] ([facility] [place] [address] PLATELETS (10*3/UL) IN BLOOD AUTOMATED COUNT 246 10*3/uL Normal 150-400 [facility] Comment on above: Performed By: #### L [id number] ####[facility] ([facility])[address] [place] [address] RBC (Bld) [#/Vol] 4.88 10*6/uL Normal 3.80-5.00 [facility] Comment on above: Performed By: #### L [id number] ####[facility] [place] [address] WBC (Bld) [#/Vol] 8.38 10*3/uL Normal 4.00-10.60 [facility] Comment on above: Performed By: #### L [id number] ####[facility] ([facility] [place] [address] Follow-Upon 10-27-2022 Follow-Up [id number] Jackie Mendoza 1975 F Date Provider Department Center 10/27/2022 [facility] Nila Heal Family History Problem Relation Age of Onset No Known Problems Father Family Status - Relation Status Age at Mother Notes: cancer brast ca, ovarian, skin, heart disease Father Level of Service:58448 LA OFFICE/OUTPATIENT ESTABLISHED MOD MDM 30-39 MIN () Reason for Visit and Comments: Follow-up [557729] Normal [facility] HEPATIC FUNCTION PANELon Albumin [Mass/Vol] 4.3 g/dL Normal 3.5-5.7 [facility] Comment on above: Performed By: #### L [id number] ####[facility] ([facility])[address] [place] [address] ALP [Catalytic activity/Vol] 78 U/L Normal 34-104 [facility] Comment on above: Performed By: #### L [id number] ####[facility] [place] [address] ALT [Catalytic activity/Vol] 15 U/L Normal 7-52 [facility] Comment on above: Performed By: #### L [id number] ####[facility] ([facility])[address] [place] [address] AST [Catalytic activity/Vol] 14 U/L Normal 13-39 [facility] Comment on above: Performed By: #### L [id number] ####[facility] ([facility])[address] [place] [address] Bilirubin [Mass/Vol] 0.5 mg/dL Normal 0.3-1.0 [facility] Comment on above: Performed By: #### L [id number] ####[facility] ([facility])[address] [place] [address] Magnesium [Mass/Vol] 0.1 mg/dL Normal 0-0.2 [facility] Comment on above: Performed By: #### L [id number] ####[facility] ([facility])[address] [place] [address] Protein [Mass/Vol] 7.3 g/dL Normal 6.0-8.3 [facility] Comment on above: Performed By: #### L [id number] ####[facility] ([facility])[address] [place] [address] SEDIMENTATION RATEon 023 SEDIMENTATION RATE, ERYTHROCYTE 5 mm/hr Normal <=20 [facility] Comment on above: Performed By: #### L [id number] #### [facility] ([facility]) [address] [place] [address] DRUG SCREEN, UR-RFLEX CONFIR 10-06-2022 ALCOHOL, UR. Negative Normal (< 10 - Cutof) [place] [facility] Comment on above: Order Comment: FACIL ITY: [facility] [id number] Performed By: #### D S-M+ #### [facility] [address] [place], [address] AMPHETAMINES, UR. Negative Normal (< 500 - Cutof) [facility] Comment on above: Order Comment: FACIL ITY: [facility] [id number] Performed By: #### D S-M+ #### [facility] [address] [place], [address] BARBITURATES, UR. Negative Normal (< 300 - Cutof) [facility] Comment on above: Order Comment: FACIL ITY: [facility] [id number] Performed By: #### D S-M+ #### [facility] [address] [place], [address] BENZODIAZEPINES, UR. Negative Normal (< 100 - Cutof) [facility] Comment on above: Order Comment: FACIL ITY: [facility] [id number] Performed By: #### D S-M+ #### [facility] [address] [place], [address] COCAINE METAB. UR. Negative Normal (< 150 - Cutof) [facility] Comment on above: Order Comment: FACIL ITY: [facility] [id number] Performed By: #### D S-M+ #### [facility] [address] [place], [address] CREAT, URINE 67.78 MG/DL Normal (20.00 - 320.0) [facility] Comment on above: Order Comment: FACIL ITY: [facility] [id number] Performed By: #### D S-M+ #### [facility] [address] [place], [address] FENTANYL, UR SCREEN Negative Normal (< 1.0 - Cutof) [facility] Comment on above: Order Comment: FACIL ITY: [facility] [id number] Performed By: #### Ari S-M+ #### [facility] [address] [place], [address] HEROIN METAB. UR. Negative Normal (< 10 - Cutof) [facility] Comment on above: Order Comment: FACIL ITY: [facility] [id number] Performed By: #### D S-M+ #### [facility] [address] [place], [address] METHADONE METAB. UR. Negative Normal (< 100 - Cutof) [facility] Comment on above: Order Comment: FACIL ITY: [facility] [id number] Performed By: #### Ari S-M+ #### [facility] [address] [place], [address] OPIATES, UR. Negative Normal (< 100 - Cutof) [facility] Comment on above: Order Comment: FACIL ITY: [facility] [id number] Performed By: #### Ari S-M+ #### [facility] [address] [place], [address] OXYCODONE, UR. Negative Normal (< 100 - Cutof) [facility] Comment on above: Order Comment: FACIL ITY: [facility] [id number] Performed By: #### D S-M+ #### [facility] [address] [place], [address] pH (U) 6.0 [pH] Normal (5.0 - 9.0) [facility] Comment on above: Order Comment: FACIL ITY: [facility] [id number] Performed By: #### D S-M+ #### [facility] [address] [facility], [address] PHENCYCLIDINE, UR. Negative Normal (< 25 - Cutof) [facility] Comment on above: Order Comment: FACIL ITY: [facility] [id number] Performed By: #### D S-M+ #### [facility] [address] [facility], [address] THC METABOLITE, UR. Positive High (< 20 - Cutof) [facility] Comment on above: Order Comment: FACIL ITY: [facility] [id number] Result Comment: THC METABOLITE URINE SCREEN = POSITIVE Specimen sent for confirmation testing for THC - [facility] test # [id number] Performed By: #### D S-M+ #### [facility] [address] [facility], [address] TRAMADOL, UR SCREEN Negative Normal (< 200 - Cutof) [facility] Comment on above: Order Comment: FACIL ITY: [facility] [id number] Result Comment: This drug testing is for medical treatment only. Analysis was performed as non-forensic testing and the results should be used only by healthcare providers to render diagnosis or treatment, or to monitor the progress of medical conditions. Performed By: #### D S-M+ #### [facility] [address] [facility], [address] US ALISA DOP LEG RTon 09-16-19 23 US ALISA DOP LEG RT EXAM: US ALISA DOP LEG RT HISTORY: Cellulitis of right lower limb COMPARISON: None. TECHNIQUE: Doppler color flow as well as spectral analysis were performed of the right lower extremity. FINDINGS: There is adequate flow, compressibility, or augmentation within the visualized deep venous structures of the right lower extremity. Evaluation of the peroneal vein is limited due to soft tissue edema. No evidence of deep venous thrombus. IMPRESSION: 1. No deep venous thrombus. Electronically authenticated by: WILFRIDO FORD Date: 2022-09-15 09:06 Normal [facility] CBC AUTO DIFFon 09-14-2022 BASO # 0.0 103/ul Normal 0.0-0.1 [facility] Comment on above: Performed By: #### C BC #### [facility] [address] [address] [address] Brock Elias Basophils/100 WBC (Bld) 0.4 % Normal 0.2-2.0 [facility] Comment on above: Performed By: #### C BC #### [facility] [address] [address] [address] Brock Elias EO # 0.2 103/ul Normal 0.0-0.7 [facility] Comment on above: Performed By: #### C BC #### [facility] [address] [place] [address] Dr. Brock Elias Eosinophils/100 WBC (Bld) 2.1 % Normal 0.9-7.0 [facility] Comment on above: Performed By: #### C BC #### [facility] [address] [place] [address] Dr. Brock Elias Erythrocyte distribution width (RBC) [Ratio] 15.2 % Critically high 11.0-15.0 [facility] Comment on above: Performed By: #### C BC #### [facility] [address] [place] [address] Dr. Brock Elias Hematocrit (Bld) [Volume fraction] 40.0 % Normal 36.0-48.0 [facility] Comment on above: Performed By: #### C BC #### [facility] [address] [place] [address] Dr. Brock Elias Hemoglobin (Bld) [Mass/Vol] 13.4 g/dL Normal 12.0-16.0 [facility] Comment on above: Performed By: #### C BC #### [facility] [address] [place] [address] Dr. Brock Elias IG # 0.02 10e3/ul Normal 0.00-0.03 [facility] Comment on above: Performed By: #### C BC #### [facility] [address] [place] [address] Dr. Brock Elias IG % 0.3 % Normal 0.0-0.5 [facility] Comment on above: Performed By: #### C BC #### [facility] [address] [place] [address] Dr. Brock Elias LYMPH # 1.9 103/ul Normal 1.2-3.8 [facility] Comment on above: Performed By: #### C BC #### [facility] [address] [place] [address] Dr. Brock Elias Lymphocytes/100 WBC (Bld) 26.7 % Normal 20.5-60.0 [facility] Comment on above: Performed By: #### C BC #### [facility] [address] [place] [address] Dr. Brock Elias MANUAL DIFF REQ NO Normal [facility] Comment on above: Performed By: #### C BC #### [facility] [address] [place] [address] Dr. Brock Elias MCH (RBC) [Entitic mass] 28.6 pg Normal 26.7-34.0 [facility] Comment on above: Performed By: #### C BC #### [facility] [address] [place] [address] Dr. Brock Elias MCHC (RBC) [Mass/Vol] 33.5 g/dL Normal 29.9-35.2 [facility] Comment on above: Performed By: #### C BC #### [facility] [address] [place] [address] Dr. Brock Elias MCV (RBC) [Entitic vol] 85.5 fL Normal 81.0-99.0 [facility] Comment on above: Performed By: #### C BC #### [facility] [address] [place] [address] Dr. Brock Elias MONO # 0.4 103/ul Normal 0.3-0.8 [facility] Comment on above: Performed By: #### C BC #### [facility] [address] [place] [address] Dr. Brock Elias Monocytes/100 WBC (Bld) 5.3 % Normal 1.7-12.0 [facility] Comment on above: Performed By: #### C BC #### [facility] [address] [place] [address] Dr. Brock Elias NEUT # 4.6 103/ul Normal 1.4-6.5 [facility] Comment on above: Performed By: #### C BC #### [facility] [address] [place] [address] Dr. Brock Elias Neutrophils/100 WBC (Bld) 65.2 % Normal 43.0-75.0 [facility] Comment on above: Performed By: #### C BC #### [facility] [address] [place] [address] Dr. Brock Elias Platelet mean volume (Bld) [Entitic vol] 9.9 fL Normal 9.5-13.5 [facility] Comment on above: Performed By: #### C BC #### [facility] [address] [place] [address] Dr. Brock Elias PLT 225 103/ul Normal 150-450 [facility] Comment on above: Performed By: #### C BC #### [facility] [address] [place] [address] Dr. Brock Elias RBC 4.68 106/ul Normal 4.20-5.40 [facility] Comment on above: Performed By: #### C BC #### [facility] [address] [place] [address] Dr. Brock Elias WBC 7.0 103/ul Normal 4.0-11.0 [facility] Comment on above: Performed By: #### C BC #### [facility] [address] [place] [address] Dr. Brock Elias D-DIMERon 09-14-2022 D-DIMER 2.02 mg/L FEU Critically high <=0.59 [facility] Comment on above: Performed By: #### H IV12 #### [facility] [address] [place] [address] Dr. Yilan Elias D-DIMER COMMENTS SEE BELOW Normal [facility] Comment on above: Result Comment: Incr eases in D-Dimer concentration observed with thromboembolic events can be variable due to localization, size, and age of the thrombus. Therefore, a thromboembolic event cannot be diagnosed with certainty on the basis of the reference range. D-Dimers may also be elevated for a variety of disorders including: advanced age, , coronary disease, cancer, liver disease, infection, inflammation, hematoma, DIC, trauma, post-surgery, diabetes, thrombolytic or anticoagulant therapy, stress, and generalized hospitalization. Performed By: #### H IV12 #### [facility] [address] [place] [address] Dr. Brock Elias LACTATE/LACTIC ACIDon 2022 Lactate [Moles/Vol] 0.9 mmol/L Normal 0.4-2.0 [facility] Comment on above: Performed By: #### L ACT #### [facility] [address] [place] [address] Dr. Brock Elias PROF CHEM 8 (BAS METB)on Anion gap [Moles/Vol] 8.7 mmol/L Normal [facility] Comment on above: Performed By: #### B MP #### [facility] [address] [place] [address] Dr. Brock Elias Calcium [Mass/Vol] 8.9 mg/dL Normal 8.5-10.1 [facility] Comment on above: Performed By: #### B MP #### [facility] [address] [place] [address] Dr. Brock Elias Chloride [Moles/Vol] 105 mmol/L Normal 98-107 [facility] Comment on above: Performed By: #### B MP #### [facility] [address] [place] [address] Dr. Brock Elias CO2 [Moles/Vol] 29.3 mmol/L Normal 21.0-32.0 [facility] Comment on above: Performed By: #### B MP #### [facility] [address] [place] [address] Dr. Brock Elias Creatinine [Mass/Vol] 0.81 mg/dL Normal 0.55-1.02 [facility] Comment on above: Performed By: #### B MP #### [facility] [address] [address] [address] Brock Elias EGFR-AF ZAMBIAN >60 Normal >=60 [facility] Comment on above: Performed By: #### B MP #### [facility] [id number] Brock Elias EGFR-NON AF ZAMBIAN >60 Normal >=60 [facility] Comment on above: Performed By: #### B MP #### [facility] [address] [address] [address] Brock Elias Glucose [Mass/Vol] 106 mg/dL Normal 74-106 [facility] Comment on above: Performed By: #### B MP #### [facility] [address] [address] [address] Brock Elias Potassium [Moles/Vol] 4.0 mmol/L Normal 3.5-5.1 [facility] Comment on above: Performed By: #### B MP #### [facility] [address] [address] [address] Brock Elias Sodium [Moles/Vol] 139 mmol/L Normal 136-145 [facility] Comment on above: Performed By: #### B MP #### [facility] [address] [address] [address] Brock Elias Urea nitrogen [Mass/Vol] 11.0 mg/dL Normal 7.0-18.0 [facility] Comment on above: Performed By: #### B MP #### [facility] [address] [address] [address] Brock Elias Urea nitrogen/Creatinine [Mass ratio] 13.6 mg/mg Normal [facility] Comment on above: Performed By: #### B MP #### [facility] [id number] Brock Elias Office Visiton 09-12-2022 Follow-up visit [id number] Jackie Mendoza 1975 F Date Provider Department Center 09/12/2022 [facility] RHEUM Nila Heal Family History Problem Relation Age of Onset No Known Problems Father Family Status - Relation Status Age at Mother Notes: cancer brast ca, ovarian, skin, heart disease Father Level of Service:21749 LA OFFICE/OUTPATIENT ESTABLISHED MOD MDM 30-39 MIN (GC) Reason for Visit and Comments: New Patient [632] - New Pt, possible fibromyalgia Normal [facility] HIV 1 AND 2 WITH REFLEXon HIV Screen 4th Generation wRfx Non-Reactive Normal Non Reactive [facility] Comment on above: Result Comment: HIV Negative HIV-1/HIV-2 antibodies and HIV-1 p24 antigen were NOT detected. There is no laboratory evidence of HIV infection. Performed By: #### H IV12 #### [facility] [address] [address] [address] Brock Elias XR ELBOW MARTHA MIN 3 VIEWSon 0 08-13-2022 XR ELBOW MARTHA MIN 3 VIEWS EXAMINATION: XR ELBOW MARTHA MIN 3 VIEWS HISTORY: Joint pain COMPARISON: No relevant comparison available. FINDINGS: RIGHT FINDINGS: BONES: No significant arthropathy or acute abnormality. SOFT TISSUES: No visible soft tissue swelling. OTHER: Negative. LEFT FINDINGS: BONES: No significant arthropathy or acute abnormality. SOFT TISSUES: No visible soft tissue swelling. OTHER: Negative. IMPRESSION: RIGHT CONCLUSION: Minimal degenerative changes favoring osteoarthritis. LEFT CONCLUSION: Minimal degenerative changes favoring osteoarthritis. Electronically authenticated by: GILL MORENO Date: 2022-08-13 10:47 Normal [facility] XR HAND MARTHA MIN 3Von 023 XR HAND MARTHA MIN 3V EXAMINATION: XR HAND MARTHA MIN 3V HISTORY: Joint pain COMPARISON: XR hand bilateral 05/19/2022 FINDINGS: RIGHT FINDINGS: BONES: No significant arthropathy or acute abnormality. SOFT TISSUES: No visible soft tissue swelling. OTHER: Negative. LEFT FINDINGS: BONES: No significant arthropathy or acute abnormality. SOFT TISSUES: No visible soft tissue swelling. OTHER: Negative. IMPRESSION: RIGHT CONCLUSION: No significant degenerative changes or findings to suggest rheumatoid arthritis. LEFT CONCLUSION: No significant degenerative changes or findings to suggest rheumatoid arthritis. Electronically authenticated by: GILL MORENO Date: 2022-08-13 10:45 Normal [facility] XR KNEE MARTHA 3 Von 08-12-2022 XR KNEE MARTHA 3 V EXAM: XR KNEE MARTHA 3 V HISTORY: Joint pain COMPARISON: None. TECHNIQUE: 3 views each of the right and left knees were obtained. FINDINGS: On the right, total knee prosthesis is in place. No complicating process is identified. There is no evidence of a fracture or dislocation. There is no evidence of loosening of the prosthesis. A mild joint effusion is present. On the left, there is no evidence of an acute fracture or dislocation. Degenerative changes are present with significant narrowing of the medial compartment and the patellofemoral joint. Small osteochondral images are seen along the articular surface of the medial condyle. Osteophytes are seen throughout the knee. There is no apparent joint effusion. IMPRESSION: No acute fracture or dislocation. A total knee prosthesis is in place on the right with a joint effusion. Degenerative changes are present on the left, particularly in the medial compartment and the patellofemoral joint. There is no apparent joint effusion on the left. Direct comparison with previous studies would be helpful in determining the chronicity of these findings. Electronically authenticated by: MELISSA GATES Date: 2022-08-12 17:40 Normal [facility] XR WRIST MARTHA MIN 3 Von 08-12 XR WRIST MARTHA MIN 3 V EXAM: XR WRIST MARTHA MIN 3 V HISTORY: Joint pain COMPARISON: 05/19/2022 TECHNIQUE: 3 views of the right wrist were obtained. FINDINGS: There is no evidence of an acute fracture or dislocation. Ulnar minus variance is present. The joint space of the proximal carpal are intact. There is mild narrowing at the first carpometacarpal joint with tiny osteophytes. No other significant osseous abnormality is identified. No abnormal soft tissue calcification or radiopaque foreign body is identified. IMPRESSION: No acute fracture or dislocation. Mild degenerative changes at the first carpometacarpal joint. The overall appearance of the wrist is unchanged. Electronically authenticated by: MELISSA GATES Date: 2022-08-12 17:26 Normal [facility] LUCINDA EIA W/REFLEX 9 BIOMARKER Son 07-23-2022 LUCINDA Direct Negative Normal Negative [facility] Comment on above: Performed By: #### H IV12 #### [facility] [address] [place] [address] Dr. Brock Elias C-REACTIVE PROTEINS (HS)on 0 07-23-2022 C-Reactive Protein, Cardiac 4.28 mg/L Critically high 0.00-3.00 [facility] Comment on above: Result Comment: Rela tive Risk for Future Cardiovascular Event Low <1.00 Average 1.00 - 3.00 High >3.00 Performed By: #### C RPHS #### [facility] [address] [address] [address] Brock Elias CYCLIC CITRULLINATED PEPTIDE AB (CCP)on 07-23-2022 CCP Antibodies IgG/IgA 6 units Normal 0-19 [facility] Comment on above: Result Comment: Nega tive <20 Weak positive 20 - 39 Moderate positive 40 - 59 Strong positive >59 Performed By: #### R F #### [facility] [address] [place] [address] Dr. Brock Elias RHEUMATOID FACTORon 07-23-19 23 RA Latex Turbid. <10.0 Normal <14.0 [facility] Comment on above: Performed By: #### R F #### [facility] [address] [place] [address] Dr. Brock Elias GLYCOHEMOGLOBIN A1Con 2022 ADA RECOMMENDATION SEE BELOW Normal [facility] Comment on above: Result Comment: ADA RECOMMENDED LIMIT 4.0 - 6.0 ADA THERAPEUTIC TARGET < 7.0 ACTION SUGGESTED > 7.0 Performed By: #### C MP #### [facility] [address] [place] [address] Dr. Brock Elias Glucose [Mass/Vol] 126 mg/dL Normal [facility] Comment on above: Performed By: #### C MP #### [facility] [address] [place] [address] Dr. Brock Elias HbA1c (Bld) [Mass fraction] 6.0 % Normal 4.5-6.2 [facility] Comment on above: Performed By: #### C MP #### [facility] [address] [place] [address] Dr. Brock Elias PROF 14(COMP METB)on 023 Albumin [Mass/Vol] 3.9 g/dL Normal 3.4-5.0 [facility] Comment on above: Performed By: #### C MP #### [facility] [address] [address] [address] Brock Elias Albumin/Globulin [Mass ratio] 1.1 {ratio} Normal [facility] Comment on above: Performed By: #### C MP #### [facility] [address] [address] [address] Brock Elias ALP [Catalytic activity/Vol] 88 U/L Normal 46-116 [facility] Comment on above: Performed By: #### C MP #### [facility] [address] [address] [address] Brock Elias ALT [Catalytic activity/Vol] 28 U/L Normal 14-59 [facility] Comment on above: Performed By: #### C MP #### [facility] [address] [place] [address] Dr. Brock Elias Anion gap [Moles/Vol] 13.8 mmol/L Normal [facility] Comment on above: Performed By: #### C MP #### [facility] [address] [place] [address] Dr. Brock Elias AST [Catalytic activity/Vol] 31 U/L Normal 15-37 [facility] Comment on above: Performed By: #### C MP #### [facility] [address] [place] [address] Dr. Brock Elias Bilirubin [Mass/Vol] 0.6 mg/dL Normal 0.2-1.0 [facility] Comment on above: Performed By: #### C MP #### [facility] [address] [place] [address] Dr. Brock Elias Calcium [Mass/Vol] 8.9 mg/dL Normal 8.5-10.1 [facility] Comment on above: Performed By: #### C MP #### [facility] [address] [place] [address] Dr. Brock Elias Chloride [Moles/Vol] 104 mmol/L Normal 98-107 [facility] Comment on above: Performed By: #### C MP #### [facility] [address] [address] [address] Brock Elias CO2 [Moles/Vol] 28.5 mmol/L Normal 21.0-32.0 [facility] Comment on above: Performed By: #### C MP #### [facility] [address] [address] [address] Brock Elias Creatinine [Mass/Vol] 0.76 mg/dL Normal 0.55-1.02 [facility] Comment on above: Performed By: #### C MP #### [facility] [address] [address] [address] Brock Elias EGFR-AF ZAMBIAN >60 Normal >=60 [facility] Comment on above: Performed By: #### C MP #### [facility] [address] [place] [address] Dr. Brock Elias EGFR-NON AF ZAMBIAN >60 Normal >=60 [facility] Comment on above: Performed By: #### C MP #### [facility] [address] [place] [address] Dr. Brock Elias Globulin (S) [Mass/Vol] 3.7 g/dL Normal [facility] Comment on above: Performed By: #### C MP #### [facility] [address] [place] [address] Dr. Brock Elias Glucose [Mass/Vol] 107 mg/dL Critically high 74-106 [facility] Comment on above: Performed By: #### C MP #### [facility] [address] [place] [address] Dr. Brock Elias Potassium [Moles/Vol] 4.3 mmol/L Normal 3.5-5.1 [facility] Comment on above: Performed By: #### C MP #### [facility] [address] [place] [address] Dr. Brock Elias Protein [Mass/Vol] 7.6 g/dL Normal 6.4-8.2 [facility] Comment on above: Performed By: #### C MP #### [facility] [address] [place] [address] Dr. Brock Elias Sodium [Moles/Vol] 142 mmol/L Normal 136-145 [facility] Comment on above: Performed By: #### C MP #### [facility] [address] [place] [address] Dr. Brock Elias Urea nitrogen [Mass/Vol] 15.0 mg/dL Normal 7.0-18.0 [facility] Comment on above: Performed By: #### C MP #### [facility] [address] [place] [address] Dr. Brock Elias Urea nitrogen/Creatinine [Mass ratio] 19.7 mg/mg Normal [facility] Comment on above: Performed By: #### C MP #### [facility] [address] [place] [address] Dr. Brock Elias SED RATE [facility] 2022 SED RATE 29 mm/hr Critically high <=20 [facility] Comment on above: Performed By: #### R F #### [facility] [address] [place] [address] Dr. Brock Elias PROF 14(COMP METB)on 023 Albumin [Mass/Vol] 3.6 g/dL Normal 3.4-5.0 [facility] Comment on above: Performed By: #### C MP #### [facility] [address] [place] [address] Dr. Brock Elias Albumin/Globulin [Mass ratio] 1.1 {ratio} Normal [facility] Comment on above: Performed By: #### C MP #### [facility] [address] [place] [address] Dr. Brock Elias ALP [Catalytic activity/Vol] 83 U/L Normal 46-116 [facility] Comment on above: Performed By: #### C MP #### [facility] [address] [place] [address] Dr. Brock Elias ALT [Catalytic activity/Vol] 22 U/L Normal 14-59 [facility] Comment on above: Performed By: #### C MP #### [facility] [address] [place] [address] Dr. Brock Elias Anion gap [Moles/Vol] 12.8 mmol/L Normal [facility] Comment on above: Performed By: #### C MP #### [facility] [address] [place] [address] Dr. Brock Elias AST [Catalytic activity/Vol] 17 U/L Normal 15-37 [facility] Comment on above: Performed By: #### C MP #### [facility] [address] [place] [address] Dr. Brock Elias Bilirubin [Mass/Vol] 0.5 mg/dL Normal 0.2-1.0 [facility] Comment on above: Performed By: #### C MP #### [facility] [address] [place] [address] Dr. Brock Elias Calcium [Mass/Vol] 8.5 mg/dL Normal 8.5-10.1 [facility] Comment on above: Performed By: #### C MP #### [facility] [address] [place] [address] Dr. Brock Elias Chloride [Moles/Vol] 104 mmol/L Normal 98-107 [facility] Comment on above: Performed By: #### C MP #### [facility] [address] [place] [address] Dr. Brock Elias CO2 [Moles/Vol] 26.3 mmol/L Normal 21.0-32.0 [facility] Comment on above: Performed By: #### C MP #### [facility] [address] [place] [address] Dr. Brock Elias Creatinine [Mass/Vol] 0.79 mg/dL Normal 0.55-1.02 [facility] Comment on above: Performed By: #### C MP #### [facility] [address] [place] [address] Dr. Brock Elias EGFR-AF ZAMBIAN >60 Normal >=60 [facility] Comment on above: Performed By: #### C MP #### [facility] [address] [place] [address] Dr. Brock Elias EGFR-NON AF ZAMBIAN >60 Normal >=60 [facility] Comment on above: Performed By: #### C MP #### [facility] [address] [address] [address] Brock Elias Globulin (S) [Mass/Vol] 3.3 g/dL Normal [facility] Comment on above: Performed By: #### C MP #### [facility] [address] [address] [address] Brock Elias Glucose [Mass/Vol] 153 mg/dL Critically high 74-106 [facility] Comment on above: Performed By: #### C MP #### [facility] [address] [address] [address] Brock Elias Potassium [Moles/Vol] 4.1 mmol/L Normal 3.5-5.1 [facility] Comment on above: Performed By: #### C MP #### [facility] [address] [place] [address] Dr. Brock Elias Protein [Mass/Vol] 6.9 g/dL Normal 6.4-8.2 [facility] Comment on above: Performed By: #### C MP #### [facility] [address] [address] [address] Brock Elias Sodium [Moles/Vol] 139 mmol/L Normal 136-145 [facility] Comment on above: Performed By: #### C MP #### [facility] [address] [place] [address] Dr. Brock Elias Urea nitrogen [Mass/Vol] 12.0 mg/dL Normal 7.0-18.0 [facility] Comment on above: Performed By: #### C MP #### [facility] [address] [address] [address] Brock Elias Urea nitrogen/Creatinine [Mass ratio] 15.2 mg/mg Normal [facility] Comment on above: Performed By: #### C MP #### [facility] [address] [address] [address] Brock Elias US VAC ASST BX BREAST RT W C LIPon 06-12-2022 US VAC ASST BX BREAST RT W CLIP Begin Addendum #1 COLLECTED DATE/TIME: 06/04/2022 08:21 EST Final Diagnosis Report for [facility] [place], [place] ULTRASOUND GUIDED CORE BIOPSY RIGHT BREAST LESION AND CALCIFICATIONS, 5 O'CLOCK: -FIBROCYSTIC CHANGE WITH APOCRINE METAPLASIA, USUAL DUCTAL HYPERPLASIA AND MICROCALCIFICATION. 06/10/2022 faxed to Donnie Kaminski NP (LUIS MANUEL). Verified with Alida that report was present in office (LUIS MANUEL). Original Report EXAM: US VAC ASST BX BREAST RT W CLIP HISTORY: Lesion of breast COMPARISON: Ultrasound breast right 05/28/2022, diagnostic mammography right 05/28/2022 TECHNIQUE: After obtaining informed consent, ultrasound-guided biopsy was performed in the usual sterile manner. The location of the biopsy was then marked as indicated below. FINDINGS: Specimen #, Location: 3 core samples; right breast 5:00, 7 x 7 x 3 mm hypoechoic mass Biopsy Needle: 13 gauge vacuum core biopsy needle. Marker(s): A single metallic marker was placed in the appropriate targeted location. Medication: Buffered 1% Lidocaine with epinephrine administered locally. Complications: None. Pathology: Pending. IMPRESSION: 1. Uneventful ultrasound-guided breast biopsy. 2. Pathology results are pending. An addendum to this report will be provided after pathology results are available. Normal [facility] MAMMO POST BIOPSY RIGHTon MAMMO POST BIOPSY RIGHT Patient: RADHA SANTACRUZ Exam Date: 06/04/2022 : 1975 Gender:F Ordering : DONNIE KAMINSKI NP-Dave Admission #: [id number] Family : Order #: [id number] CLICK HERE TO VIEW EXAM RADIOLOGY REPORT PROCEDURE: MAMMOGRAM POST BIOPSY IMAGES COMPARISON: MG MAMM RT DIAG FU, 05/28/2022. MG MAMM SCREEN 3D MARTHA CAD, 04/29/2022. INDICATIONS: Calcification of breast BREAST COMPOSITION: FINDINGS: BIOPSY MARKER: A metallic marker has been placed in the targeted location within the lower-outer quadrant of the right breast. BREAST FINDINGS: Expected post biopsy findings. RECOMMENDATIONS: Dictated by: Gill Moreno M.D. on 06/09/2022 at 13:25 Approved by: Gill Moreno M.D. on 06/09/2022 at 13:27 Normal [facility] Lewis 05-28-2022 CNPN Telephone (NCCAP) RADHA SANTACRUZ ([id number]) 1975 F Date Time Provider Department 05/28/22 CHANCE LANGLEY NCCAP During your visit today, we recorded the following information about you: Bandar Miya 05/28/2022 2:23 PM Signed Pt is being referred by [facility] dx Breast Ca. Per Karina Antunez schedule new pt consult once we have a bx date. They will call us when it is scheduled. Allergies As of Date: 05/28/2022 Noted Allergy Reaction DOXYCYCLINE HCL 02/19/2017 4 - Hives IMITREX (SUMATRIPTAN SUCCINATE) 02/19/2017 14 - Other: See Comments Comments: head feels like flames coming out NSAIDS (NON-STEROIDAL ANTI-INFLAM*02/19/2017 14 - Other: See Comments Comments: kidneys shut down PITOCIN (OXYTOCIN) 02/19/2017 10 - Anaphylaxis Date Reviewed: 03/11/2017 Reviewed by: Yulisa Montano Ma - Fully Assessed Reason for Visit: Appointment [[id number]] Prescriptions as of 05/30/2022 - HYDROMORPHONE HCL (DILAUDID MISC) Implanted pain pump placed 07/10/16 0.04 infused q4hr (pt thinks) - gabapentin (NEURONTIN) 600 mg tablet Take 600 mg by mouth twice daily. Taking 1200mg po qam and pm - FLUoxetine (PROZAC) 20 mg capsule Take 20 mg by mouth once daily. Taking 80mg po daily - brexpiprazole (REXULTI) 2 mg tab Take by mouth once daily. For mental health - DULoxetine (CYMBALTA) 60 mg capsule Take 60 mg by mouth once daily. Taking two capsules (120mg) po every am - Folic Acid 20 mg cap Take by mouth once daily. - cyanocobalamin, vitamin B-12, (VITAMIN B-12) 5,000 mcg subl Dissolve under the tongue once daily. - furosemide (LASIX) 20 mg tablet Take 20 mg by mouth once daily. - amitriptyline (ELAVIL) 25 mg tablet Take 25 mg by mouth daily at bedtime. For insomnia - umeclidinium-vilantero l (ANORO ELLIPTA) 62.5-25 mcg/actuation inhaler Inhale 1 Inhalation as instructed once daily. One puff daily - lidocain-me.salicyl-ca ps-menth 4.5 %-27.5 %- 0.0325 %-10 % oint Apply to affected area. To bilat knees daily - dextroamphetamine-amph etamine (ADDERALL) 20 mg tablet Take 1 tablet by mouth once daily. - diazePAM (VALIUM) 5 mg tablet Take 1 tablet by mouth as needed. Problem List As Of Date: 05/28/2022 (None) Encounter Status:Closed by BANDAR LAGUNA on 05/30/22 [facility] MG MAMM RT DIAG FUon 022 MG MAMM RT DIAG FU Patient: ONIEL SANTACRUZ Exam Date: 05/28/2022 : 1975 Gender:F Ordering : DONNIE AGEE Admission #: [id number] Family : Order #: [id number] CLICK HERE TO VIEW EXAM RADIOLOGY REPORT PROCEDURE: MAMMOGRAM RIGHT DIAGNOSTIC DIGITAL FOLLOW UP, 05/28/2022, 09:59 ULTRASOUND BREAST RIGHT LIMITED, 05/28/2022, 10:36 COMPARISON: MG MAMM SCREEN 3D MARTHA CAD, 04/29/2022. INDICATIONS: Breast signs and symptoms Calculator Name NCI Breast Cancer Risk Assessment Tool 5 Year Breast Cancer Risk 1.90% Lifetime Breast Cancer Risk 18.40% Personal Breast Cancer No Personal Ovarian Cancer No Treatments None Family Cancers Mother with breast cancer at age 40. LOCATION: [facility] BREAST COMPOSITION: Scattered areas fibroglandular density. FINDINGS: DIAGNOSTIC CATEGORY 4--SUSPICIOUS FOR MALIGNANCY. FINDING DOES NOT EXHIBIT CLASSIC FINDINGS OF BREAST CANCER: RIGHT BREAST: Spot magnification views demonstrate persistence of a subtle asymmetry at approximately 6 o'clock position. Ultrasound-guided tissue sampling is recommended of a 7 x 5 x 3 mm heterogeneous hypoechoic area with internal hyperechoic foci/calcifications at the 5 o'clock position, 1.1 cm from the nipple. In addition, there is an oval smoothly marginated hypoechoic 8 x 5 x 3 mm mass at the 7 o'clock position adjacent the posterior chest wall. Follow-up ultrasound evaluation in 6 months is recommended to document stability. RECOMMENDATIONS: ULTRASOUND-GUIDED CORE BIOPSY: RIGHT BREAST PLEASE NOTE: A NORMAL MAMMOGRAM DOES NOT EXCLUDE THE POSSIBILITY OF BREAST CANCER. A CLINICALLY SUSPICIOUS PALPABLE LUMP SHOULD BE BIOPSIED. Dictated by: Gill Moreno M.D. on 05/28/2022 at 11:01 Approved by: Gill Moreno M.D. on 05/28/2022 at 12:33 Normal [facility] US BREAST RIGHT LIMITEDon US BREAST RIGHT LIMITED Patient: RADHA SANTACRUZ Exam Date: 05/28/2022 : 1975 Gender:F Ordering : DONNIE KAMINSKI [employer]-C Admission #: [id number] Family : Order #: [id number] CLICK HERE TO VIEW EXAM RADIOLOGY REPORT PROCEDURE: MAMMOGRAM RIGHT DIAGNOSTIC DIGITAL FOLLOW UP, 05/28/2022, 09:59 ULTRASOUND BREAST RIGHT LIMITED, 05/28/2022, 10:36 COMPARISON: MG MAMM SCREEN 3D MARTHA CAD, 04/29/2022. INDICATIONS: Breast signs and symptoms Calculator Name NCI Breast Cancer Risk Assessment Tool 5 Year Breast Cancer Risk 1.90% Lifetime Breast Cancer Risk 18.40% Personal Breast Cancer No Personal Ovarian Cancer No Treatments None Family Cancers Mother with breast cancer at age 40. LOCATION: [facility] BREAST COMPOSITION: Scattered areas fibroglandular density. FINDINGS: DIAGNOSTIC CATEGORY 4--SUSPICIOUS FOR MALIGNANCY. FINDING DOES NOT EXHIBIT CLASSIC FINDINGS OF BREAST CANCER: RIGHT BREAST: Spot magnification views demonstrate persistence of a subtle asymmetry at approximately 6 o'clock position. Ultrasound-guided tissue sampling is recommended of a 7 x 5 x 3 mm heterogeneous hypoechoic area with internal hyperechoic foci/calcifications at the 5 o'clock position, 1.1 cm from the nipple. In addition, there is an oval smoothly marginated hypoechoic 8 x 5 x 3 mm mass at the 7 o'clock position adjacent the posterior chest wall. Follow-up ultrasound evaluation in 6 months is recommended to document stability. RECOMMENDATIONS: ULTRASOUND-GUIDED CORE BIOPSY: RIGHT BREAST PLEASE NOTE: A NORMAL MAMMOGRAM DOES NOT EXCLUDE THE POSSIBILITY OF BREAST CANCER. A CLINICALLY SUSPICIOUS PALPABLE LUMP SHOULD BE BIOPSIED. Dictated by: Gill Moreno M.D. on 05/28/2022 at 11:01 Approved by: Gill Moreno M.D. on 05/28/2022 at 12:33 Normal [facility] XR HAND MARTHA MIN 3Von 022 XR HAND MARTHA MIN 3V EXAM: XR HAND MARTHA AL N 3V HISTORY: Bilateral hand pain COMPARISON: None. TECHNIQUE: 3 views of each hand FINDINGS: No fracture, dislocation, subluxation or osseous lesion. Joint spaces are normal for patient's age. No visualized erosion or joint effusion. No soft tissue edema. IMPRESSION: Normal hand x-rays Electronically authenticated by: AGUSTIN ADAMSON Date: 2022-05-19 16:32 Normal [facility] XR LSPINE 2_3 VIEWSon 2021 XR LSPINE 2_3 VIEWS EXAM: XR LSPINE 2_3 VIEWS HISTORY: Postoperative back pain COMPARISON: None. TECHNIQUE: 3 views FINDINGS: Patient is status post L4-S1 bilateral pedicle screw instrumentation. Interbody cage at L5-S1. Internal hardware exhibits no gross abnormality. Maintenance of the normal lumbar lordosis.. Vertebral body heights and alignments exhibit no fracture or listhesis. Age-related intervertebral disc space narrowing. The sacroiliac joints are unremarkable. IMPRESSION: Normal postoperative x-rays Electronically authenticated by: AGUSTIN ADAMSON Date: 2022-05-19 16:29 Normal [facility] MAMM SCREEN 3D MARTHA CADon 04-29-2022 MG MAMM SCREEN 3D MARTHA CAD Patient: RADHA SANTACRUZ Exam Date: 04/29/2022 : 1975 Gender:F Ordering : DONNIE KAMINSKI [employer]-C Admission #: [id number] Family : Order #: [id number] CLICK HERE TO VIEW EXAM RADIOLOGY REPORT PROCEDURE: MAMMOGRAM SCREENING 3D BILATERAL CAD COMPARISON: DIGITIZED_MAMMO, 12/28/2009. MG MAMM MARTHA SCRN W CAD DIG, 05/22/2015. INDICATIONS: Screening mammography Calculator Name NCI Breast Cancer Risk Assessment Tool 5 Year Breast Cancer Risk 1.90% Lifetime Breast Cancer Risk 18.40% Personal Breast Cancer No Personal Ovarian Cancer No Treatments None Family Cancers Mother with breast cancer at age 40. LOCATION: [facility] BREAST COMPOSITION: Scattered areas fibroglandular density. FINDINGS: DIAGNOSTIC CATEGORY 0--INCOMPLETE: NEED ADDITIONAL IMAGING EVALUATION. Scattered benign-appearing calcifications are present. Scattered benign-appearing lymph nodes are present. RIGHT BREAST: Interval increase in size of an ill-defined 1.4 x 0.9 cm focal asymmetry 6 o'clock position of the right mid breast. Spot compression and ultrasound follow-up is LEFT BREAST: No significant suspicious finding. RECOMMENDATIONS: ADDITIONAL MAMMOGRAPHIC VIEWS REQUIRED: RIGHT BREAST - spot compression ULTRASOUND: RIGHT BREAST PLEASE NOTE: A NORMAL MAMMOGRAM DOES NOT EXCLUDE THE POSSIBILITY OF BREAST CANCER. A CLINICALLY SUSPICIOUS PALPABLE LUMP SHOULD BE BIOPSIED. Dictated by: Agustin Stephenson MD on 04/30/2022 at 07:23 Approved by: Agustin Stephenson MD on 04/30/2022 at 07:26 Normal [facility] Physician Referralon 022 Physician Referral [id number] 00 [id number] 0CD:127 Normal [facility] Physician Referral [id number] 00 [id number] 0CD:127 Normal [facility] CBC AUTO DIFFon 04-14-2022 BASO # 0.1 103/ul Normal 0.0-0.1 [facility] Comment on above: Performed By: #### C MP #### [facility] [address] [place] [address] Dr. Brock Elias Basophils/100 WBC (Bld) 0.8 % Normal 0.2-2.0 [facility] Comment on above: Performed By: #### C MP #### [facility] [address] [place] [address] Dr. Brock Elias EO # 0.2 103/ul Normal 0.0-0.7 [facility] Comment on above: Performed By: #### C MP #### [facility] [address] [place] [address] Dr. Brock Elias Eosinophils/100 WBC (Bld) 2.1 % Normal 0.9-7.0 [facility] Comment on above: Performed By: #### C MP #### [facility] [address] [place] [address] Dr. Brokc Elias Erythrocyte distribution width (RBC) [Ratio] 14.0 % Normal 11.0-15.0 [facility] Comment on above: Performed By: #### C MP #### [facility] [address] [place] [address] Dr. Brock Elias Hematocrit (Bld) [Volume fraction] 39.6 % Normal 36.0-48.0 [facility] Comment on above: Performed By: #### C MP #### [facility] [address] [place] [address] Dr. Brock Elias Hemoglobin (Bld) [Mass/Vol] 12.6 g/dL Normal 12.0-16.0 [facility] Comment on above: Performed By: #### C MP #### [facility] [address] [place] [address] Dr. Brock Elias IG # 0.02 10e3/ul Normal 0.00-0.03 [facility] Comment on above: Performed By: #### C MP #### [facility] [address] [place] [address] Dr. Brock Elias IG % 0.2 % Normal 0.0-0.5 [facility] Comment on above: Performed By: #### C MP #### [facility] [address] [place] [address] Dr. Brock Elias LYMPH # 2.2 103/ul Normal 1.2-3.8 [facility] Comment on above: Performed By: #### C MP #### [facility] [address] [place] [address] Dr. Brock Elias Lymphocytes/100 WBC (Bld) 25.5 % Normal 20.5-60.0 [facility] Comment on above: Performed By: #### C MP #### [facility] [address] [place] [address] Dr. Brock Elias MANUAL DIFF REQ NO Normal [facility] Comment on above: Performed By: #### C MP #### [facility] [address] [address] [address] Brock Elias MCH (RBC) [Entitic mass] 28.0 pg Normal 26.7-34.0 [facility] Comment on above: Performed By: #### C MP #### [facility] [address] [place] [address] Dr. Brock Elias MCHC (RBC) [Mass/Vol] 31.8 g/dL Normal 29.9-35.2 [facility] Comment on above: Performed By: #### C MP #### [facility] [address] [place] [address] Dr. Brock Elias MCV (RBC) [Entitic vol] 88.0 fL Normal 81.0-99.0 [facility] Comment on above: Performed By: #### C MP #### [facility] [address] [place] [address] Dr. Brock Elias MONO # 0.4 103/ul Normal 0.3-0.8 [facility] Comment on above: Performed By: #### C MP #### [facility] [address] [place] [address] Dr. Brock Elias Monocytes/100 WBC (Bld) 4.8 % Normal 1.7-12.0 [facility] Comment on above: Performed By: #### C MP #### [facility] [address] [place] [address] Dr. Brock Elias NEUT # 5.6 103/ul Normal 1.4-6.5 [facility] Comment on above: Performed By: #### C MP #### [facility] [address] [place] [address] Dr. Brock Elias Neutrophils/100 WBC (Bld) 66.6 % Normal 43.0-75.0 [facility] Comment on above: Performed By: #### C MP #### [facility] [address] [place] [address] Dr. Brock Elias Platelet mean volume (Bld) [Entitic vol] 9.9 fL Normal 9.5-13.5 [facility] Comment on above: Performed By: #### C MP #### [facility] [address] [address] [address] Brock Elias PLT 266 103/ul Normal 150-450 [facility] Comment on above: Performed By: #### C MP #### [facility] [address] [address] [address] Brock Elias RBC 4.50 106/ul Normal 4.20-5.40 [facility] Comment on above: Performed By: #### C MP #### [facility] [address] [address] [address] Brock Elias WBC 8.5 103/ul Normal 4.0-11.0 [facility] Comment on above: Performed By: #### C MP #### [facility] [address] [place] [address] Dr. Brock Elias GLYCOHEMOGLOBIN A1Con 2021 ADA RECOMMENDATION SEE BELOW Normal [facility] Comment on above: Result Comment: ADA RECOMMENDED LIMIT 4.0 - 6.0 ADA THERAPEUTIC TARGET < 7.0 ACTION SUGGESTED > 7.0 Performed By: #### A 1C #### [facility] [address] [place] [address] Dr. Brock Elias Glucose [Mass/Vol] 123 mg/dL Normal [facility] Comment on above: Performed By: #### A 1C #### [facility] [address] [place] [address] Dr. Brock Elias HbA1c (Bld) [Mass fraction] 5.9 % Normal 4.5-6.2 [facility] Comment on above: Performed By: #### A 1C #### [facility] [address] [place] [address] Dr. Brock Elias LIPID PROFILEon 04-14-2022 CHOL-HDL RATIO NORM SEE BELOW Normal [facility] Comment on above: Result Comment: 3.3 - 4.4 LOW RISK 4.4 - 7.1 AVERAGE RISK 7.1 - 11.0 MODERATE RISK >11.0 HIGH RISK Performed By: #### R F #### [facility] [address] [place] [address] Dr. Brock Elias Cholesterol [Mass/Vol] 133 mg/dL Normal <=200 [facility] Comment on above: Performed By: #### R F #### [facility] [address] [address] [address] Brock Elias Cholesterol in HDL [Mass/Vol] 43 mg/dL Normal 40-60 [facility] Comment on above: Performed By: #### R F #### [facility] [address] [address] [address] Brock Elias Cholesterol in LDL [Mass/Vol] 74.2 mg/dL Normal [facility] Comment on above: Performed By: #### R F #### [facility] [address] [address] [address] Brock Elias Cholesterol.total/Ch olesterol in HDL [Mass ratio] 3.1 {ratio} Normal [facility] Comment on above: Performed By: #### R F #### [facility] [address] [place] [address] Dr. Brock Elias HDL NORMAL > or = 60 mg/dl - LO W CARDIOVASCULAR RISK <40 mg/dl - HIGH CARDIOVASCULAR RISK Normal [facility] Comment on above: Performed By: #### R F #### [facility] [address] [address] [address] Brock Elias LDL CALC NORMAL SEE BELOW Normal [facility] Comment on above: Result Comment: <100 mg/dl OPTIMAL 100 - 129 mg/dl NEAR OR ABOVE OPTIMAL 130 - 159 mg/dl BORDERLINE HIGH 160 - 189 mg/dl HIGH >190 mg/dl VERY HIGH Performed By: #### R F #### [facility] [address] [place] [address] Dr. Brock Elias Triglyceride [Mass/Vol] 79 mg/dL Normal <=150 [facility] Comment on above: Performed By: #### R F #### [facility] [address] [place] [address] Dr. Brock Elias VLDL CALC 15.8 mg/dL Normal [facility] Comment on above: Performed By: #### R F #### [facility] [address] [place] [address] Dr. Brock Elias PROF 14(COMP METB)on 022 Albumin [Mass/Vol] 3.6 g/dL Normal 3.4-5.0 [facility] Comment on above: Performed By: #### H IV12 #### [facility] [address] [place] [address] Dr. Brock Elias Albumin/Globulin [Mass ratio] 0.9 {ratio} Normal [facility] Comment on above: Performed By: #### H IV12 #### [facility] [address] [place] [address] Dr. Brock Elias ALP [Catalytic activity/Vol] 83 U/L Normal 46-116 [facility] Comment on above: Performed By: #### H IV12 #### [facility] [address] [place] [address] Dr. Brock Elias ALT [Catalytic activity/Vol] 15 U/L Normal 14-59 [facility] Comment on above: Performed By: #### H IV12 #### [facility] [address] [place] [address] Dr. Brock Elias Anion gap [Moles/Vol] 9.5 mmol/L Normal [facility] Comment on above: Performed By: #### H IV12 #### [facility] [address] [place] [address] Dr. Brock Elias AST [Catalytic activity/Vol] 12 U/L Critically low 15-37 [facility] Comment on above: Performed By: #### H IV12 #### [facility] [address] [place] [address] Dr. Brock Elias Bilirubin [Mass/Vol] 0.4 mg/dL Normal 0.2-1.0 [facility] Comment on above: Performed By: #### H IV12 #### [facility] [address] [place] [address] Dr. Brock Elias Calcium [Mass/Vol] 8.9 mg/dL Normal 8.5-10.1 [facility] Comment on above: Performed By: #### H IV12 #### [facility] [address] [place] [address] Dr. Brock Eilas Chloride [Moles/Vol] 105 mmol/L Normal 98-107 [facility] Comment on above: Performed By: #### H IV12 #### [facility] [address] [address] [address] Brock Elias CO2 [Moles/Vol] 28.5 mmol/L Normal 21.0-32.0 [facility] Comment on above: Performed By: #### H IV12 #### [facility] [address] [address] [address] Brock Elias Creatinine [Mass/Vol] 0.73 mg/dL Normal 0.55-1.02 [facility] Comment on above: Performed By: #### H IV12 #### [facility] [address] [place] [address] Dr. Brock Elias EGFR-AF ZAMBIAN >60 Normal >=60 [facility] Comment on above: Performed By: #### H IV12 #### [facility] [address] [address] [address] Brock Elias EGFR-NON AF ZAMBIAN >60 Normal >=60 [facility] Comment on above: Performed By: #### H IV12 #### [facility] [address] [address] [address] Brock Elias Globulin (S) [Mass/Vol] 3.8 g/dL Normal [facility] Comment on above: Performed By: #### H IV12 #### [facility] [address] [address] [address] Brock Elias Glucose [Mass/Vol] 99 mg/dL Normal 74-106 [facility] Comment on above: Performed By: #### H IV12 #### [facility] [address] [address] [address] Brock Elias Potassium [Moles/Vol] 4.0 mmol/L Normal 3.5-5.1 [facility] Comment on above: Performed By: #### H IV12 #### [facility] [address] [place] [address] Dr. Brock Elias Protein [Mass/Vol] 7.4 g/dL Normal 6.4-8.2 [facility] Comment on above: Performed By: #### H IV12 #### [facility] [address] [address] [address] Brock Elias Sodium [Moles/Vol] 139 mmol/L Normal 136-145 [facility] Comment on above: Performed By: #### H IV12 #### [facility] [address] [place] [address] Dr. Brock Elias Urea nitrogen [Mass/Vol] 12.0 mg/dL Normal 7.0-18.0 [facility] Comment on above: Performed By: #### H IV12 #### [facility] [address] [place] [address] Dr. Brock Elias Urea nitrogen/Creatinine [Mass ratio] 16.4 mg/mg Normal [facility] Comment on above: Performed By: #### H IV12 #### [facility] [address] [place] [address] Dr. Borck Elias TSHon 04-14-2022 TSH 1.033 uIU/mL Normal 0.358-3.740 [facility] Comment on above: Performed By: #### H IV12 #### [facility] [address] [place] [address] Dr. Brock Elias HEMOGLOBINon 04-10-2022 Hemoglobin (Bld) [Mass/Vol] 13.0 g/dL Normal 12.0-16.0 [facility] Comment on above: Performed By: #### C MP #### [facility] [address] [place] [address] Dr. Brock Elias Operative Reporton 2 Operative Report MR#: [id number] 2 [facility] Pt. Name: Radha Santacruz Room #: [id number] Discharge 03/01/2022 Date: Birthdate: 1975 OPERATIVE REPORT DATE OF SURGERY: 02/28/2022 SURGEON: Peterson Bhatia MD PREOPERATIVE DIAGNOSES: 1. Right knee degenerative joint disease with varus deformity. 2. Morbid obesity with a BMI above 40. POSTOPERATIVE DIAGNOSES: 1. Right knee degenerative joint disease with varus deformity. 2. Morbid obesity with a BMI above 40. OPERATIVE PROCEDURE DONE: Right total knee arthroplasty using patient specific instrumentation. ASSISTANTS: 1. Tim Villela M.D. 2. Avinash Fox SA. ANESTHESIA: General anesthesia. ESTIMATED BLOOD LOSS: 200 mL. COMPLICATIONS: None. SPECIMENS: None. IMPLANTS USED: Leija and Nephew total knee arthroplasty with a size #4 right posterior stabilized legion Oxinium femoral component, size 3 arian 1 right tibial base plate with a 12 mm x 100 mm stem, size 3-4 13 mm arian 2 constrained articular insert, 35 mm resurfacing patellar component. INDICATION FOR THE PROCEDURE: The patient is a 46-year-old female patient with morbid obesity and extensive medical history including history of myocardial infarction 2 years ago. The patient has significant bilateral knee arthritis. The patient failed conservative treatment in the form of multiple steroid injections and activity modulation. X-rays showed bilateral knee arthritis with varus deformity, the patient elected to start with the right knee. Recommendations were given for right knee right total knee arthroplasty. Discussed with the patient all the risks and benefits of the surgery including risk of infection, bleeding, injury to nerves and vessels, injury to surrounding structures. The fractures, stiffness, persistence of pain, leg-length discrepancy, patellar dislocation, blood clots to the legs or lungs, medical complications, heart attacks and strokes, need for revision surgery. Discussed with the patient that she is high risk for complications due to her morbid obesity and medical history including risk of infection, medical complications, early loosening due to her BMI, injury to surrounding structures including the extensor mechanism. The patient understood the recommendations and possible risks and elected to proceed with surgery. An informed consent was obtained. OPERATIVE DETAILS: The patient was identified in preoperative holding area. Her right lower extremity was examined and signed. All questions were answered. Consents were signed. The patient was then taken back to the OR, taken back to the block room, where she received an adductor canal block. The patient was then taken back to the OR where she received general anesthesia. Her right lower extremity was prepped and draped in the standard sterile fashion. A nonsterile tourniquet was applied outside the surgical field. A Vargas catheter was inserted before the prepping and draping. A complete surgical time-out was performed in the room in my presence. I identified the patient, the site of the surgery, as well as the procedure to be done. Preoperative antibiotics were given per protocol. The leg was elevated and exsanguinated using an Esmarch tourniquet and the tourniquet was elevated to 300 mmHg. An anterior midline incision extending superior to the superior pole of patella to the medial border of the tibial tubercle. The incision continued deeper all the way down to the deep fascia. A deep fascia was opened and a medial subfacial flap and a smaller lateral flap was elevated. The joint was opened through a medial parapatellar arthrotomy. The patella was everted and the lateral patellofemoral ligament was released. A conservative medial tibial peel was performed. The knee was very carefully flexed with the leg in external rotation to decrease the tension on the patellar tendon. At this point, there was significant amount of arthritis with deformation of the articular surface and the structure of the distal femur and proximal tibia. Significant sclerosis of the bone. Complete cartilage loss and eburnation of the articular surface and osteophyte formation. At this point, the femur was exposed and the femoral patient's specific cutting block was inserted in place. The block was pinned in place and the amount of bone to be resected was examined and measured. The distal femoral cut was performed. At this point, attention was directed to the proximal tibia. The proximal tibial cutting block was inserted in place and made perfectly conforming and pinned in place. The drop gabbi was used to examine the alignment and rotation. The cutting block was pinned in place and the proximal tibial cut was performed. At this point, the knee was extended and a size 11 mm cutting block was inserted in place. The knee was tested. It was good stability, however, some laxity medial. At this point, (more content not included)... Normal [facility] POC GLUCOSE LABon 02-28-2022 Glucose [Mass/Vol] 94 mg/dL Normal 70-100 [facility] Comment on above: Performed By: #### [id number] #### [address] [place] [address], [facility] PORTABLE KNEE RIGHT 2 [facility] 02-28-2022 PORTABLE KNEE RIGHT 2 [facility] Department of Radiology [address] [place] [id number] ======== Patient Name: RADHA SANTACRUZ : 1975 Sex: F Age: Race: White Pt. Location: OUTP Patient Status: O Ordered Date: 02/28/2022 4:45:00 PM Completed Date: 02/28/2022 05:42 PM Requesting Provider: TIM VILLELA Attending Provider: PETERSON BHATIA Report Copy To: Signs & Symptoms: Post OP History: Comments: Hardware Evaluation, in PACU Exam: PORTABLE KNEE RIGHT 2 VWS ======== PORTABLE KNEE RIGHT 2 VWS CLINICAL INFORMATION: Hardware Evaluation. Post OP. COMPARISON: 11/21/2021. IMPRESSION: * Long stem knee arthroplasty noted with no hardware complication. No fracture. Electronically signed: Joellen Sweeney. Transcribed by: [email or web address], User Resident: Electronically Signed by: JOELLEN SWEENEY @ 02/28/2022 05:45 PM Normal [facility] Comment on above: Order Comment: Hardw are Evaluation, in PACU MRI KNEE WO CONTRAST RIGHTon 12-10-2021 MRI KNEE WO CONTRAST RIGHT [facility] Department of Radiology [address] [place] [address] ======== Patient Name: RADHA SANTACRUZ : 1975 Sex: F Age: Race: White Pt. Location: Patient Status: D Ordered Date: 11/21/2021 2:35:00 PM Completed Date: 12/10/2021 01:08 PM Requesting Provider: PETERSON BHATIA Attending Provider: PETERSON BHATIA Report Copy To: Signs & Symptoms: M25.561 Pain in right knee I10 History: [place], pt. has pain pump, ortho hardware back Comments: LEIJA AND NEPHEW PROTOCOL , Side: RIGHT Exam: MRI KNEE WO CONTRAST RIGHT ======== MRI KNEE WO CONTRAST RIGHT 12/10/2021 1:08 PM CLINICAL INDICATIONS: M25.561 Pain in right knee I10 TECHNOLOGIST COMMENTS: pre TKA leija and nephew protocol QUESTION FOR THE RADIOLOGIST: LEIJA AND NEPHEW PROTOCOL , Side: RIGHT PROTOCOL: Images were obtained in the following sequences: 3-plane localizer and sagittal T2. COMPARISON: None. Findings: Advanced tricompartmental osteoarthropathy is appreciated in the knee. Medial and lateral meniscal tears are appreciated. Knee joint effusion is noted. The extensor mechanism is intact. Degeneration of the PCL is appreciated. IMPRESSION: Imaging prevendor protocol as detailed above Electronically signed: Adelaida Dinh. Transcribed by: [email or web address], User Resident: Electronically Signed by: ADELAIDA DINH @ 12/11/2021 09:43 AM Normal [facility] Comment on above: Order Comment: LEIJA AND NEPHEW PROTOCOL , Side: RIGHT KNEE LEFT 3 [facility] 11-21-2021 KNEE LEFT 3 S [facility] Department of Radiology [address] [place] [id number] ======== Patient Name: RADHA SANTACRUZ : 1975 Sex: F Age: Race: White Pt. Location: Patient Status: D Ordered Date: 11/21/2021 12:30:00 PM Completed Date: 11/21/2021 01:35 PM Requesting Provider: PETERSON BHATIA Attending Provider: PETERSON BHATIA Report Copy To: CM LEE Signs & Symptoms: M25.561 Pain in right knee I10 History: [place] Comments: Views (X-RAY, KNEE): AP, Lateral, [place] Exam: KNEE LEFT 3 [facility] ======== KNEE LEFT 3 [facility] 11/21/2021 1:35 PM CLINICAL INDICATIONS: M25.561 Pain in right knee I10 TECHNOLOGIST COMMENTS: Pt stated having bilateral knees pain, no known injury. QUESTION FOR THE RADIOLOGIST: Views (X-RAY, KNEE): AP, Lateral, [place] PROTOCOL: AP,Lateral and Tangential views were obtained. COMPARISON: 11/04/2014 FINDINGS: Severe joint space narrowing in the medial femorotibial compartment. Tricompartmental osteophyte formation. Small knee joint effusion. IMPRESSION: Tricompartmental osteoarthritis most prominent in the medial femorotibial compartment. Electronically signed: Elizabeth Landis. Transcribed by: [email or web address], User Resident: Electronically Signed by: ELIZABETH LANDIS @ 11/23/2021 03:26 PM Normal [facility] Comment on above: Order Comment: Views (X-RAY, KNEE): AP, Lateral, [place] KNEE RIGHT 3 [facility] 2 KNEE RIGHT 3 [facility] Department of Radiology [address] [place] [phone] ======== Patient Name: RADHA SANTACRUZ : 1975 Sex: F Age: Race: White Pt. Location: Patient Status: D Ordered Date: 11/21/2021 12:30:00 PM Completed Date: 11/21/2021 01:35 PM Requesting Provider: PETERSON BHATIA Attending Provider: PETERSON BHATIA Report Copy To: CM LEE Signs & Symptoms: M25.561 Pain in right knee I10 History: [place] Comments: Views (X-RAY, KNEE): AP, Lateral, [place] Exam: KNEE RIGHT 3 S ======== KNEE RIGHT 3 S 11/21/2021 1:35 PM CLINICAL INDICATIONS: M25.561 Pain in right knee I10 TECHNOLOGIST COMMENTS: Pt stated having bilateral knees pain, no known injury. QUESTION FOR THE RADIOLOGIST: Views (X-RAY, KNEE): AP, Lateral, [place] PROTOCOL: AP,Lateral and Tangential views were obtained. COMPARISON: 02/18/2011 FINDINGS: Severe tricompartmental osteophyte formation and joint space narrowing. No fracture. No malalignment. Moderate knee joint effusion. IMPRESSION: Severe tricompartmental osteoarthritis. Electronically signed: Elizabeth Landis. Transcribed by: [email or web address], User Resident: Electronically Signed by: ELIZABETH LANDIS @ 11/23/2021 03:26 PM Normal [facility] Comment on above: Order Comment: Views (X-RAY, KNEE): AP, Lateral, [place] LOWER EXTREMITY JOINT SURVEY on 11-21-2021 LOWER EXTREMITY JOINT SURVEY [facility] Department of Radiology [address] [place] [address] ======== Patient Name: RADHA SANTACRUZ : 1975 Sex: F Age: Race: White Pt. Location: Patient Status: D Ordered Date: 11/21/2021 1:05:00 PM Completed Date: 11/21/2021 01:35 PM Requesting Provider: PETERSON BHATIA Attending Provider: PETERSON BHATIA Report Copy To: CM LEE Signs & Symptoms: M25.561 Pain in right knee I10 History: [place] Comments: Exam: LOWER EXTREMITY JOINT SURVEY ======== LOWER EXTREMITY JOINT SURVEY 11/21/2021 1:35 PM CLINICAL INDICATIONS: M25.561 Pain in right knee I10 TECHNOLOGIST COMMENTS: Pt stated having bilateral knees pain, no known injury. QUESTION FOR THE RADIOLOGIST: PROTOCOL: Multiple segmental images were obtained and stitching software was utilized to acquire an AP view of the lower extremities in a standing position. COMPARISON: None FINDINGS: Degenerative and postsurgical changes in the lower lumbar spine. Advanced bilateral knee osteoarthritis. Right lower extremity measures 82.7 cm and left lower extremity measures 82.9 cm. No significant varus or valgus deformity in the right leg. Left genu varus measuring 7 degrees. IMPRESSION: Leg length study with measurements provided above. Electronically signed: Elizabeth Landis. Transcribed by: [email or web address], User Resident: Electronically Signed by: ELIZABETH LANDIS @ 11/23/2021 11:03 PM Normal [facility] Cytologyon 10-23-2021 Cytology (NOTE) INTERPRETATION Cervical material, (ThinPrep vial, Imaging-assisted review): Specimen Adequacy: Satisfactory for evaluation. - Endocervical/transform ation zone component present. Descriptive Diagnosis: Negative for intraepithelial lesion or malignancy. [employer] Room Attendant: IRINA Estrada(ASCP) Electronically Signed Out /10/29/2021 Source: A: Cervical material, (ThinPrep vial, Imaging-assisted review) Clinical History Z01.419 Routine chief risk officer exam without abnormal findings High risk HPV DNA testing is requested if the diagnosis is abnormal GYNECOLOGIC CYTOLOGY REPORT Patient Name: RADHA SANTACRUZ [facility] Rec: [id number] Path Number: [id number] [facility] ANATOMIC PATHOLOGY [address] [place] [phone] [facility] Comment on above: Performed By: #### P PPVP #### [facility] [address] [place] [address] [id number] Or Manager: Saw Elizondo MD Surgical Pathologyon Surgical Pathology (NOTE) -- Diagnosis -- ENDOMETRIUM, BIOPSY: - DISORDERED PROLIFERATIVE ENDOMETRIUM. Harjit Flores M.D. Electronically Signed Out [facility]10/25/2021 Clinical Information Pre-op Diagnosis: IRREGULAR/HEAVY MENSTRUAL BLEEDING Operative Findings: ENDOMETRIAL BX Source of Specimen A: ENDO BIOPSY Gross Description RADHA SANTACRUZ, ENDO BIOPSY Blood-tinged mucinous material, 2.5 x 1.5 x 0.5 cm in aggregate. Entirely 1cs. mpb tm Microscopic Description The endometrium has disordered proliferative features. There is no evidence of atypia or malignancy. SURGICAL PATHOLOGY CONSULTATION Patient Name: RADHA SANTACRUZ [facility] Rec: [id number] Path Number: [id number] [facility] ANATOMIC PATHOLOGY [address] [place] [phone] [facility] Comment on above: Performed By: #### P PPVS #### [facility] [address] [place] [address] Or Manager: Saw Elizondo MD Vital Signs Date Time Vital Sign Value Performing Clinician Facility 06-01-2023 16:00-0500 Body height Kayla Franklin Other [facility] Other 06-01-2023 16:00-0500 Body mass index (BMI) [Ratio] 51.84 kg/m2 Kayla Franklin Other [facility] Other 06-01-2023 16:00-0500 Body temperature 98.4 [degF] Kayla Franklin Other [facility] Other 06-01-2023 16:00-0500 Body weight 124.47 kg Kayla Franklin Other [facility] Other 06-01-2023 16:00-0500 Respiratory rate 18 /min Kayla Franklin Other [facility] Other 06-01-2023 16:00-0500 SaO2% (BldA) [Mass fraction] 93 % Kayla Franklin Other [facility] Other 03-05-2023 16:45-0400 Body temperature 97.2 [degF] Mohit Dejesus MD Work Phone: [facility] 03-05-2023 16:45-0400 Diastolic blood pressure 76 mm[Hg] Mohit Dejesus MD Work Phone: [facility] 03-05-2023 16:45-0400 Heart rate 75 /min Mohit Dejesus MD Work Phone: [facility] 03-05-2023 16:45-0400 Respiratory rate 16 /min Mohit Dejesus MD Work Phone: [facility] 03-05-2023 16:45-0400 SaO2% (BldA) [Mass fraction] 96 % Mohit Dejesus MD Work Phone: [employer] 03-05-2023 16:45-0400 Systolic blood pressure 141 mm[Hg] Mohit Dejesus MD Work Phone: [facility] [employer] 03-05-2023 12:57-0400 Body height 154.9 cm Mohit Dejesus MD Work Phone: [employer] 03-05-2023 12:57-0400 Body mass index (BMI) [Ratio] 49.32 kg/m2 Mohit Dejesus MD Work Phone: [employer] 03-05-2023 12:57-0400 Body weight 118.39 kg Mohit Dejesus MD Work Phone: [facility] [employer] Encounters Encounter Date Encounter Type Care Provider Facility Start: 08-26-2023 Telephone encounter Fatmata Barger CMA [facility] Start: 08-24-2023 End: 08-24-2023 ambulatory ALIS STEINBERG Not Available Start: 08-14-2023 End: 08-15-2023 ambulatory VALORIE ARIAS [facility] Start: 07-30-2023 End: 07-30-2023 ambulatory [facility] Start: 07-27-2023 End: 07-27-2023 ambulatory MEDINA Roblero [facility] Start: 06-01-2023 End: 06-01-2023 ambulatory Kaylabashir Castillob Other [facility] Other Start: 06-01-2023 Office outpatient vi sit 15 minutes Kayla Franklin [facility] Start: 05-25-2023 End: 05-25-2023 ambulatory ADELAIDA SUBRAMANIAN Not Available Start: 04-27-2023 End: 04-27-20[facility] Start: 03-05-2023 End: 03-05-2023 ambulatory MOHIT Sebastian [facility] Start: 03-05-2023 End: 03-05-2023 Subsequent hospital visit by physician Mohit Dejesus MD Work Phone: [facility] Start: 02-19-2023 End: 02-24-2023 ambulatory MOHIT Sebastian [facility] Start: 01-12-2023 End: 01-12-2023 ambulatory [facility] Start: 10-28-2022 End: 10-29-2022 ambulatory DONNIE SHAMMO Facility:[facility] Start: 10-27-2022 End: 10-27-2022 ambulatory [facility] Start: 10-09-2022 ambulatory DONNIE SHAMMO Facility:[facility] Start: 09-18-2022 ambulatory PETERSON [facility] Start: 09-15-2022 End: 09-16-2022 ambulatory DONNIE SHAMMO Facility:[facility] Start: 09-14-2022 End: 09-14-2022 ambulatory DONNIE SHAMMO Facility:[facility] Start: 09-12-2022 End: 09-12-2022 ambulatory [facility] Start: 08-13-2022 ambulatory DONNIE SHAMMO Facility:[facility] Start: 08-12-2022 End: 08-13-2022 ambulatory DONNIE SHAMMO Facility:[facility] Start: 07-22-2022 End: 07-23-2022 ambulatory DONNIE SHAMMO Facility:[facility] Start: 07-11-2022 End: 07-12-2022 ambulatory DONNIE SHAMMO Facility:[facility] Start: 06-10-2022 Chart abstracting Jarad hemphill MD Work Phone: Hematology/Oncology Start: 06-04-2022 End: 06-04-2022 ambulatory DONNIE SHAMMO Facility:[facility] Start: 05-28-2022 Telephone encounter Chance stokes MD Work Phone: [facility] Comment on above: Appointment Start: 05-28-2022 End: 05-29-2022 ambulatory DONNIE SHAMMO Facility:[facility] Start: 05-19-2022 End: 05-20-2022 ambulatory DONNIE SHAMMO Facility:[facility] Start: 05-07-2022 ambulatory Rick STAPLES Facility :[facility] Start: 04-29-2022 End: 04-30-2022 ambulatory DONNIE SHAMMO Facility:[facility] Start: 04-29-2022 ambulatory DONNIE SHAMMO Facility:[facility] [place] Start: 04-20-2022 Encounter for genera l adult medical examination without abnormal findings DONNIE SHAMMO [facility] Start: 04-14-2022 ambulatory DONNIE SHAMMO Facility:[facility] Start: 04-14-2022 End: 04-15-2022 ambulatory DONNIE SHAMMO Facility:[facility] Start: 04-14-2022 End: 04-15-2022 Encounter for general adult medical examination without abnormal findings DONNIE SHAMMO Facility:[facility] Start: 04-10-2022 End: 04-11-2022 ambulatory DONNIE SHAMMO Facility:[facility] Start: 02-28-2022 End: 03-01-2022 ambulatory Peterson Jannette Facility:[facility] Start: 01-02-2022 End: 01-02-2022 Subsequent hospital visit by physician Kulwant Arenas MD Work Phone: [facility] Comment on above: No Show Start: 12-10-2021 End: 12-11-2021 ambulatory Peterson Jannette Facility:[facility] Start: 11-21-2021 End: 11-22-2021 ambulatory Peterson Jannette Facility:[facility] Start: 10-23-2021 End: 10-24-2021 ambulatory KULWANT ARENAS [facility] Start: 10-23-2021 End: 10-23-2021 Patient encounter [facility] Start: 10-23-2021 End: 10-23-2021 Subsequent hospital visit by physician [facility] Comment on above: Irregular menstrual bleeding; Women's annual routine gynecological examination Procedures Date Procedure Procedure Detail Performing Clinician Start: 03-05-2023 Blood count complete automated Mohit Dejesus MD Work Phone: Start: 03-05-2023 Urine test visual color cmprsn meths Mohit Lockwoodah MD Work Phone: Start: 10-23-2021 Microscopic observat ion [Identifier] in Cervix by Cyto stain Kulwant Arenas MD Work Phone: Plan of Treatment Date Care Activity Detail Author Start: 08-08-2026 Lipid panel Lipids [facility] Start: 10-23-2024 Screening for malign ant neoplasm of cervix [facility] Start: 03-31-2024 Adult BMI Screening Adult BMI Screen ing [facility] Start: 03-31-2024 Tobacco Screening Tobacco Screening [facility] Start: 02-20-2024 Hemoglobin A1c measurement A1C test (Diabetic or Prediabetic) [facility] Start: 08-27-2023 End: 08-27-2023 Patient encounter procedure 08/27/2023 12:00 PM EST Office Visit [facility] [address] [place] [address] Tram Hahn MD [address] [place] [address] [facility] Start: 2023 Administration of varicella zoster vaccine Zoster (Shingles) Vaccine (1 of 2) [facility] Start: 03-05-2023 End: 03-05-2023 Impltj/rplcmt ithcl/edrl drug nfs prgrbl pump PAIN PUMP INSERTION REMOVAL Post laminectomy syndrome 03/05/2023 2:52 PM EDT [facility] Start: 02-20-2023 Influenza vaccination Influenza Vacc ine [facility] Start: 01-20-2023 Influenza vaccination Flu vaccine (# 1) [facility] Start: 10-14-2022 Creatinine measurement Creatinine [facility] Start: 10-14-2022 Potassium [Moles/vol ume] in Serum or Plasma Potassium [facility] Start: 02-20-2022 Influenza vaccination [facility] Start: 01-08-2022 End: 01-08-2022 Admission to same day surgery center 01/08/2022 Surgery IP Unit Kulwant Arenas MD [address] [place] [address] DILATATION AND CURETTAGE HYSTEROSCOPY CAUTERY ABLATION-NOVASURE [facility] Comment on above: DILATATION AND CURET TAGE HYSTEROSCOPY CAUTERY ABLATION-NOVASURE Start: 01-08-2022 End: 01-08-2022 Hysteroscopy endometrial ablation DILATATION AND CURETTAGE HYSTEROSCOPY CAUTERY ABLATION DYSFUNCTIONAL UTERINE BLEEDING 01/08/2022 8:50 AM EDT [facility] Start: 01-08-2022 Subsequent hospital visit by physician 01/08/2022 Hospital Encounter IP Unit Kulwant Arenas MD [address] [place] [address] [facility] Start: 11-01-2021 End: 11-01-2021 Patient encounter procedure 11/01/2021 Office Visit Obstetrics and Gynecology Kulwant Arenas MD [address] [place] [address] [facility] Start: 11-01-2021 End: 11-01-2021 Professional / ancillary services management 11/01/2021 Ancillary Procedure Obstetrics and Gynecology [facility] Start: 06-22-2021 DEPRESSION ASSESSMENT DEPRESSION ASS ESSMENT [facility] Start: 2018 COLOGUARD (FIT-DNA) COLOGUARD (FIT-D NA) [facility] Start: 2018 Colonoscopy COLONOSCOPY [facility] Start: 2018 COLORECTAL CANCER SCREENING COLORECTAL CANCER SCREENING [facility] Start: [address] COLONOGRAPHY [facility] Start: 2018 DIABETES SCREEN DIABETES SCREEN [facility] Start: 2018 FECAL OCCULT BLOOD FECAL OCCULT BLOO D [facility] Start: 2018 LIPID SCREEN LIPID SCREEN [facility] Start: 2018 Screening for malign ant neoplasm of colon [facility] Start: 2018 SIGMOIDOSCOPY SIGMOIDOSCOPY Soraida [facility] Start: 2013 Mammography MAMMOGRAM [facility] Start: 2013 Screening for malign ant neoplasm of breast Breast cancer screen [facility] Start: 2008 Diabetes screen Diabetes screen [facility] Start: 2003 HPV TESTING HPV TESTING [facility] Start: 2003 Screening for malign ant neoplasm of cervix [facility] Start: 1994 PAP TESTING PAP TESTING [facility] Start: 1994 Screening for malign ant neoplasm of cervix Pap smear [facility] Start: 1992 DTaP,Tdap and Td Vaccines (1 - Tdap) DTaP,Tdap and Td Vaccines (1 - Tdap) [facility] Start: 1992 DTaP/Tdap/Td vaccine (1 - Tdap) DTaP/Tdap/Td vaccine (1 - Tdap) [facility] Start: 1992 Urine microalbumin profile DTAP,TDAP,TD (1 - Tdap) [facility] Start: 1991 Adult BMI Follow Up Plan Adult BMI Follow Up Plan [facility] Start: 1991 Hepatitis C screening Hepatitis C sc [facility] Start: 1991 HEPATITIS C SCREENING HEPATITIS C SC [facility] Start: 1991 HIV SCREENING HIV SCREENING [facility] Start: 1988 HIV screening HIV screen [facility] Start: 1985 Depression Screen Depression Screen [facility] Start: 1985 Depression Screening Depression Scre ening [facility] Start: 1983 Lipid panel Lipids [facility] Start: 1979 Pneumococcal 0-64 ye ars Vaccine (1 - PCV) Pneumococcal 0-64 years Vaccine (1 - PCV) [facility] Start: 1978 COVID-19 Vaccine (1) COVID-19 Vaccin e (1) [facility] Start: 01-02-1974 COVID-19 Vaccine (#1) COVID-19 Vacci ne (#1) [facility] Start: 1973 HEPATITIS B (1 of 3 - 3-dose series) HEPATITIS B (1 of 3 - 3-dose series) [facility] Start: 1973 Hepatitis B vaccine (1 of 3 - 3-dose series) Hepatitis B vaccine (1 of 3 - 3-dose series) [facility] Start: 1973 Tobacco Counseling Tobacco Counselin [facility] End: 03-06-2023 Blood glucose - POCT Blood glucose - POCT Point of Care Testing Routine One Time for 1 Occurrences starting 03/06/2023 until 03/06/2023 [facility] Comment on above: One Time for 1 Occur rences starting 03/06/2023 until 03/06/2023 End: 10-23-2021 Cytopathology procedure, preparation of smear, genital source PAP SMEAR Lab Routine Women's annual routine gynecological examination 1 Occurrences starting 10/23/2021 until 10/23/2021 [facility]. Phone: Comment on above: 1 Occurrences starti ng 10/23/2021 until 10/23/2021 End: 03-05-2023 INITIATE PACU OXYGEN THERAPY PROTOCOL Initiate PACU Oxygen Therapy Protocol Respiratory Care Routine Continuous until discontinued starting 03/05/2023 [employer] Phone: Comment on above: Continuous until dis continued starting 03/05/2023 Oxygen therapy [[facility] Data Set] Initiate Oxygen Therapy Protocol Respiratory Care Routine As Needed until discontinued starting 03/05/2023 [employer] Phone: Comment on above: As Needed until disc ontinued starting 03/05/2023 End: 03-06-2023 , urine , urine Lab Routine Tomorrow AM for 1 Occurrences starting 03/06/2023 until 03/06/2023 [facility] Comment on above: Tomorrow AM for 1 Oc currences starting 03/06/2023 until 03/06/2023 End: 10-23-2021 Surgical Pathology Surgical Pathology Lab Routine Irregular menstrual bleeding 1 Occurrences starting 10/23/2021 until 10/23/2021 [facility]. Phone: Comment on above: 1 Occurrences starti ng 10/23/2021 until 10/23/2021 End: 10-23-2021 SURGICAL PATHOLOGY REPORT SURGICAL PATHOLOGY REPORT Lab Routine Once for 1 Occurrences starting 10/23/2021 until 10/23/2021 [facility]. Phone: Comment on above: Once for 1 Occurrenc es starting 10/23/2021 until 10/23/2021 Aguilar Micheal thomas Payers Date Payer Category Payer Medicaid MEDICAID [facility] MEDICAID [id number] 2021-Present [phone] [address] [place] [address] Medicaid [id number] 2013 Medicare [id number] [id number] 1973 Unknown [id number] 2.16.840.1.987542.3.579.2.173 1973 Unknown [id number] 2.16.840.1.091277.3.579.2.647 1973 Unknown [id number] 2.16.840.1.450302.3.579.2.647 1973 Unknown [id number] 2.16.840.1.629606.3.579.2.647 1973 Unknown [id number] 2.16.840.1.797535.3.579.2.727 1973 Unknown [id number] 2.16.840.1.696338.3.579.2.727 1973 Unknown [id number] 2.16.840.1.752626.3.579.2.593 1973 Unknown [id number] 2.16.840.1.052768.3.579.2.593 1973 Unknown [id number] 2.16.840.1.521100.3.579.2.593 1973 Unknown [id number] 2.16.840.1.646288.3.579.2.593 1973 Unknown [id number] 2.16.840.1.956743.3.579.2.593 1973 Unknown [id number] 2.16.840.1.253716.3.579.2.593 1973 Unknown [id number] 2.16.840.1.836479.3.579.2.593 1973 Unknown [id number] 2.16.840.1.907060.3.579.2.593 1973 Unknown [id number] 2.16.840.1.869139.3.579.2.593 1973 Unknown [id number] 2.16.840.1.616395.3.579.2.593 1973 Unknown [id number] 2.16.840.1.657456.3.579.2.593 1973 Unknown [id number] 2.16.840.1.692915.3.579.2.593 1973 Unknown [id number] 2.16.840.1.610714.3.579.2.593 1973 Unknown [id number] 2.16.840.1.110080.3.579.2.593 1973 Unknown [id number] 2.16.840.1.607670.3.579.2.177 1973 Unknown [id number] 2.16.840.1.757959.3.579.2.177 1973 Unknown [id number] 2.16.840.1.097354.3.579.2.1259 1973 Unknown [id number] 2.16.840.1.952983.3.579.2.1259 1959 Medicaid [id number] [id number] [id number] 1959 Medicare [id number] [id number] [id number] 1959 Self-pay Unknown [id number] 2.16.840.1.747571.3.579.2.593 Social History Date Type Detail Facility Start: 10-23-2021 End: 03-31-2023 Tobacco smoking status NHIS Smokes tobacco daily [facility]. Phone: History of tobacco use Cigarette Smoker [employer] Phone: Start: 08-02-2020 End: 10-23-2021 Cigarettes smoked current (pack per day) - Reported 1.5 [facility]. Phone: Start: 10-23-2021 End: 03-31-2023 Tobacco use and exposure Smokeless tobacco non-user [facility]. Phone: Start: 10-23-2021 End: 11-01-2021 Alcohol intake Ex-drinker (finding) [facility]. Phone: Start: 1975 Sex Assigned At Not on file [employer] Phone: Start: 02-19-2017 Tobacco smoking stat us IAIS Occasional tobacco smoker [facility] Start: 03-11-2017 End: 06-10-2022 Alcohol intake Current non-drinker of alcohol (finding) [facility] Start: 02-19-2017 End: 06-10-2022 Tobacco Comment 23 cigarettes to 2 pks per day [facility] History of tobacco use Passive smoker [facility] Start: 03-05-2023 End: 03-31-2023 Alcohol intake Current drinker of alcohol (finding) [facility] Start: 08-02-2020 End: 02-19-2023 [facility] Start: 02-19-2023 Alcohol Comment very rare- may be twice a year [facility] Start: 10-29-2021 Alcohol Comment rare [facility] Medical Equipment Procedure Code Equipment Code Equipment Origin al Text Equipment Identifier Dates Kit Catheter Rev Seg W Attch [employer] Security Assurance Specialist Conn 2 Cllt Rul - [id number] Start: 03-05-2023 Clinical Notes 01-02-2022 to 08-26-2023 Telephone Encounter - Fatmata Barger CMA - 08/26/2023 9:55 AM ESTTelephone Encounter - Fatmata Barger CMA - 08/26/2023 9:55 AM EST Note Date & Type Note Facility 08-26-2023 Miscellaneous Notes PER ADELA PT WANTS TO CANCEL APPT SCHEDULED FOR 08/27/2023. PHONED PT AND LM ON TO CONTACT OFFICE IF SHE DOES INDEED WANT TO CANCEL AND RESCHEDULE THIS APPT. documented in this encounter [facility] 08-26-2023 Telephone encounter Note PER ADELA PT WANTS TO CANCEL APPT SCHEDULED FOR 08/27/2023. PHONED PT AND LM ON VM TO CONTACT OFFICE IF SHE DOES INDEED WANT TO CANCEL AND RESCHEDULE THIS APPT. [facility] 07-30-2023 Note Patient ID: Radha Mendoza is a 48 y.o. female. Therapeutic injection carpal tunnel Date/Time: 07/30/2023 2:38 PM Performed by: Medina Montes MD Authorized by: Medina Montes MD Consent: Consent obtained: Verbal Consent given by: Patient Risks, benefits, and alternatives were discussed: yes Risks discussed: Bleeding and incomplete drainage Alternatives discussed: No treatment [place] protocol: Procedure explained and questions answered to patient or proxy's satisfaction: yes Relevant documents present and verified: yes Test results available: yes Imaging studies available: yes Required blood products, implants, devices, and special equipment available: yes Site/side marked: yes Immediately prior to procedure, a time out was called: yes Patient identity confirmed: Verbally with patient Pre-procedure details: Skin preparation: Chlorhexidine with alcohol Sedation: Sedation type: None Anesthesia: Anesthesia method: Topical application Procedure specific details: 20 mg kenalog and 1 ML 1% lidocaine injected LT carpal tunnel Post-procedure details: Procedure completion: Tolerated well, no immediate complications [facility] 07-30-2023 Note Attestation signed by Medina Montes MD at 07/31/2023 10:56 AM I personally saw and examined the patient on the same date of service as resident/fellow . I discussed the findings and therapeutic plan with the resident/fellow . I agree with the documentation, except for any edits/updates below. Teaching Physician's Revisions: Subjective Patient ID: Radha Mendoza is a 48 y.o. 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 She presents for Follow-up. Medication regimen: Methotrexate 25 mg (10 tabs of 2.5 mg) weekly, folate supplementation. Patient presents for follow-up and L sided CSI for carpal tunnel syndrome today. Patient is tolerating medications well, without significant side effects and with symptom control on current regimen. No GI upset, mouth sores, hair loss, recent flares or infections. She needs medication refills as well. Today, patient reports pain that is 3/10 in severity. Localized to back. AM stiffness lasts 1-1.5 hrs, on average daily. Denies joint erythema, swelling, warmth. Patient is current smoker, 1.5 ppd. She has tried quitting multiple times unsuccessfully, she wants to try cutting down. Review of Systems Constitutional: Positive for fatigue. Negative for chills, fever and unexpected weight change. HENT: Negative for mouth sores and trouble swallowing. Dry mouth from medication. Eyes: Negative for pain, redness and visual disturbance. No dry eyes. Respiratory: Negative for cough, chest tightness, shortness of breath and wheezing. Cardiovascular: Negative for chest pain and palpitations. Raynaud's phenomenon. Gastrointestinal: Negative for abdominal pain, constipation, diarrhea, nausea and vomiting. GERD. Genitourinary: Negative for difficulty urinating, dysuria and hematuria. Musculoskeletal: Positive for arthralgias, back pain, joint swelling (occasional in fingers, none today) and myalgias. Negative for neck pain. Skin: Negative for rash. Neurological: Positive for numbness (CTS bilaterally, legs and feet from neuropathy). Negative for dizziness, weakness, light-headedness and headaches. Psychiatric/Behavioral: Positive for dysphoric mood and sleep disturbance (unrefreshing sleep, CESARIO). The patient is nervous/anxious. Objective Visit Vitals BP 130/81 (BP Location: Left arm, Patient Position: Sitting) Pulse 63 Physical Exam Constitutional: General: She is not in acute distress. Appearance: Normal appearance. HENT: Head: Normocephalic and atraumatic. Right Ear: External ear normal. Left Ear: External ear normal. Eyes: General: Right eye: No discharge. Left eye: No discharge. Extraocular Movements: Extraocular movements intact. Cardiovascular: Rate and Rhythm: Normal rate and regular rhythm. Heart sounds: Normal heart sounds. No murmur heard. Pulmonary: Effort: No respiratory distress. Breath sounds: Normal breath sounds. No wheezing or rales. Musculoskeletal: General: No tenderness or deformity. Normal range of motion. Right lower leg: No edema. Left lower leg: No edema. Neurological: General: No focal deficit present. Mental Status: She is alert and oriented to person, place, and time. Psychiatric: Mood and Affect: Mood normal. Behavior: Behavior normal. Assessment/Plan Diagnoses and all orders for this visit: Seronegative rheumatoid arthritis (CMS/HCC) - folic acid (Folvite) 1 mg tablet; Take 1 tablet (1 mg) by mouth in the morning. - methotrexate 2.5 mg tablet; Take 10 tablets (25 mg) by mouth once weekly. 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 Osteoarthritis of both knees, unspecified osteoarthritis type Osteoarthritis of both hands, unspecified osteoarthritis type Bilateral carpal tunnel syndrome - lidocaine (Xylocaine) 10 mg/mL (1 %) injection 15 mg - triamcinolone acetonide (Kenalog-40) injection 20 mg - Injection tendon or ligament; Future Tobacco dependence Morbid obesity with BMI of 50.0-59.9, adult ([facility]) Other orders - Injection tendon or ligament: L carpal tunnel 48 y.o. year old female with history of bilateral hand and right knee OA status post total knee replacement complicated by cellulitis, lumbar back surgery, migraine headaches, COPD/CESARIO on CPAP, history of AL, CHF, PTSD, bipolar, anxiety and morbid obesity presenting for routine follow up. Seronegative rheumatoid arthritis Long-term use of methotrexate Medication regimen: Methotrexate 25 mg (10 tabs of 2.5 mg) weekly, folate supplementation. *Worsened disease with DAS28 (more content not included)... [facility] 07-27-2023 Note Attestation signed by Medina Montes MD at 07/29/2023 11:46 AM I personally saw and examined the patient on the same date of service as resident/fellow . I discussed the findings and therapeutic plan with the resident/fellow . I agree with the documentation, except for any edits/updates below. Teaching Physician's Revisions: Subjective Patient ID: Radha Mendoza is a 48 y.o. female who presents for No chief complaint on file.. HPI 47 y.o. year old female with history of seronegative RA, bilateral hand and right knee OA status post total knee replacement complicated by cellulitis, lumbar back surgery, migraine headaches, COPD/CESARIO on CPAP, history of AL, CHF, PTSD, bipolar, anxiety and morbid obesity presenting for routine follow up. Patient reports having bilateral wrist pain and stiffness that is worse in the morning.Patient also endorses having numbness and tingling.She also reports having back pain which is located primarily on the left side Review of Systems Constitutional: Negative for chills and fever. HENT: Negative for ear discharge and ear pain. Eyes: Negative for pain and visual disturbance. Respiratory: Negative for chest tightness and shortness of breath. Gastrointestinal: Negative for abdominal pain, nausea and vomiting. Genitourinary: Negative for difficulty urinating and dysuria. Musculoskeletal: Positive for arthralgias, back pain, joint swelling and myalgias. Skin: Negative for color change and rash. Neurological: Negative for dizziness and light-headedness. Objective There were no vitals taken for this visit. Physical Exam Constitutional: General: She is not in acute distress. Appearance: Normal appearance. HENT: Head: Normocephalic and atraumatic. Right Ear: External ear normal. Left Ear: External ear normal. Nose: Nose normal. Eyes: Extraocular Movements: Extraocular movements intact. Cardiovascular: Rate and Rhythm: Normal rate and regular rhythm. Heart sounds: Normal heart sounds. Pulmonary: Breath sounds: Normal breath sounds. No wheezing or rales. Abdominal: General: There is no distension. Palpations: Abdomen is soft. Tenderness: There is no abdominal tenderness. Musculoskeletal: Right lower leg: No edema. Left lower leg: No edema. Neurological: Mental Status: She is alert and oriented to person, place, and time. Psychiatric: Mood and Affect: Mood normal. Behavior: Behavior normal. Assessment/Plan 47 y.o. year old female with history of bilateral hand and right knee OA status post total knee replacement complicated by cellulitis, lumbar back surgery, migraine headaches, COPD/CESARIO on CPAP, history of AL, CHF, PTSD, bipolar, anxiety and morbid obesity presenting for routine follow up. Seronegative rheumatoid arthritis - worsened disease with DAS28 ESR score 1.14 > 3.84 - Continue methotrexate 10 tablets (25 mg) weekly with folic acid.Will review improvement with steroid injection for carpal tunnel syndrome prior to changing medication regimen In review: - presented with polyarthragias of the knees, wrists, hands, hip with AM pain/stiffness and associated synovitis - prednisone trial aborted due to mood changes - in office [facility] ultrasound on 04/27/2023 showed bilateral mild to moderate synovitis of the wrists Long-term use of methotrexate - continue routine lab monitoring with inflammatory markers, CBC, and liver enzymes ever 3 months -Follow up on CBC,CMP ordered in the office Bilateral knee osteoarthritis Bilateral hand osteoarthritis - status post right knee replacement - in office [facility] ultrasound of the left knee on 04/27/2023 did not show double contour sign concerning for gout Bilateral carpal tunnel syndrome -seen on previous EMG - in office [facility] ultrasound with left median nerve measuring 13 mm on 04/27/2023 - patient wears nocturnal wrist braces -Will trial steroid injection,tentatively scheduled for .Will monitor response prior to further recomendations Tobacco dependence - actively smoking 1.5 PPD - encouraged cessation and counseled that work up and diagnosis of any underlying inflammatory arthropathy would exacerbate her symptoms Morbid obesity - BMI 51.02 - encouraged lifestyle modification RTC in 3 months Patient was seen with attending physician Dr. Montes No results found for this or any previous visit (from the past 36 hour(s)). No follow-ups on file. [facility] [place] 06-01-2023 Evaluation note Encounter Date Diagnosis Assessment Notes May, Acute cellulitis (ICD-10 - L03.90) You were seen here today for redness, swelling, pain and warmth in the right lower extremity. You were diagnosed with cellulitis. You are being prescribed keflex (cephalexin). Take the antibiotic until it is gone. Assess for worsening redness, warmth, open wounds, purulent drianiage, fevers, chills, nausea, vomiting whi h may require emergent care in the ER. Follow up with your primary care provider in 3-5 days. [place] Other 11-06-2023 Note Attestation signed by Medina Montes MD at 04/27/2023 8:21 PM I personally saw and examined the patient on the same date of service as resident/fellow . I discussed the findings and therapeutic plan with the resident/fellow . I agree with the documentation, except for any edits/updates below. Teaching Physician's Revisions: Subjective Patient ID: Radha Mendoza is a 47 y.o. female who presents for Follow-up. HPI 47 y.o. year old female with history of seronegative RA, bilateral hand and right knee OA status post total knee replacement complicated by cellulitis, lumbar back surgery, migraine headaches, COPD/CESARIO on CPAP, history of AL, CHF, PTSD, bipolar, anxiety and morbid obesity presenting for routine follow up. She was well controlled at her last visit but now is complaining of 3 weeks of persistent right thumb, bilateral knee, and wrist and MCP joint pain lasting 1 - 1.5 hours per day. She is taking methotrexate 7 tablets weekly with folic acid. She denies any side effects to treatment. Review of Systems Constitutional: Negative for chills, fatigue, fever and unexpected weight change. HENT: Negative for mouth sores and trouble swallowing. Eyes: Negative for photophobia, pain, redness, itching and visual disturbance. Respiratory: Negative for apnea, cough, shortness of breath and wheezing. Cardiovascular: Negative for chest pain and palpitations. Gastrointestinal: Negative for constipation, diarrhea, nausea and vomiting. Endocrine: Negative for cold intolerance. Musculoskeletal: Positive for arthralgias (hands). Negative for back pain, joint swelling, myalgias, neck pain and neck stiffness. Skin: Negative for rash. Neurological: Negative for weakness, light-headedness and headaches. Psychiatric/Behavioral: Negative for sleep disturbance. Objective Visit Vitals BP 117/72 (BP Location: Left arm, Patient Position: Sitting) Pulse 76 Physical Exam Constitutional: General: She is not in acute distress. Appearance: Normal appearance. She is well-developed and well-groomed. HENT: Head: Normocephalic and atraumatic. Eyes: Extraocular Movements: Extraocular movements intact. Cardiovascular: Rate and Rhythm: Normal rate and regular rhythm. Heart sounds: No murmur heard. No friction rub. No gallop. Pulmonary: Effort: Pulmonary effort is normal. Breath sounds: Normal breath sounds. No wheezing, rhonchi or rales. Abdominal: General: Bowel sounds are normal. Palpations: Abdomen is soft. Musculoskeletal: General: No swelling, tenderness or deformity. Cervical back: Normal range of motion and neck supple. Skin: General: Skin is warm and dry. Capillary Refill: Capillary refill takes less than 2 seconds. Findings: No rash. Neurological: General: No focal deficit present. Mental Status: She is alert and oriented to person, place, and time. Psychiatric: Mood and Affect: Mood normal. Thought Content: Thought content normal. Assessment/Plan 47 y.o. year old female with history of bilateral hand and right knee OA status post total knee replacement complicated by cellulitis, lumbar back surgery, migraine headaches, COPD/CESARIO on CPAP, history of AL, CHF, PTSD, bipolar, anxiety and morbid obesity presenting for routine follow up. Seronegative rheumatoid arthritis - worsened disease with DAS28 ESR score 1.14 > 3.84 - will increase to methotrexate 10 tablets (25 mg) weekly with folic acid In review: - presented with polyarthragias of the knees, wrists, hands, hip with AM pain/stiffness and associated synovitis - prednisone trial aborted due to mood changes - in office [facility] ultrasound showed bilateral mild to moderate synovitis of the wrists - labs through PCP faxed over and reviewed showing: ESR 29, CRP 4.28, negative/normal CMP, RF, CCP, and LUCINDA - 40% improvement over 6 weeks with methotrexate 5 tablets. 1 hour AM pain/stiffness with synovitis Long-term use of methotrexate - continue routine lab monitoring with inflammatory markers, CBC, and liver enzymes ever 3 months Bilateral knee osteoarthritis Bilateral hand osteoarthritis - status post right knee replacement - in office [facility] ultrasound of the left knee did not show double contour sign concerning for gout Bilateral carpal tunnel syndrome -seen on previous EMG - in office [facility] ultrasound with left median nerve measuring 13 mm - patient wears nocturnal wrist braces Tobacco dependence - actively smoking 1.5 PPD - encouraged cessation and counseled that work up and diagnosis of any underlying inflammatory arthropathy would exacerbate her symptoms Morbid obesity - BMI 51.39 - encouraged lifestyle modification RTC in 3 months Patient was seen with attending physician Dr. Simon Garcia MD Rheumatology Fellow (more content not included)...[facility] [place]09-14-2023 Hospital Discharge instructions* Discharge Instructions* Nichelle Cunha RN - 03/05/2023 4:40 PM EDT PATIENT DISCHARGE INSTRUCTIONS FOLLOWING IMPLANTATION OF SPINAL CORD STIMULATOR GENERATOR DO NOT DRIVE YOURSELF! You have a follow-up appointment in Dr. Dejesus's office on: . The bandage over the side incision may drain a small amount of blood. This is normal; don't be alarmed. Keep incisions clean and dry. Cover with plastic wrap and tape when showering. Do not submerge incisions in a bathtub, pool, or spa. Wear the abdominal binder at all times for the next 3 weeks, except when bathing. Finish completely the prescribed antibiotic for 10 days. Minimize bending, twisting, or awkward positions of the mid-and lower-back. Avoid lifting more than: 10 lbs for 6 weeks. This is critical to prevent migration of leads, which will change stimulation patterns completely and require further surgery to correct. Be certain to review all warnings/precautions in the patient brochure accompanying your stimulator. Please call your referring physician to make an appointment for follow-up care. You can start to drive again when you are fully recovered from the anesthesia side-effects (24-48 hours). After 6 weeks you can gradually resume activities, but continue to avoid strenuous and awkward positions of the back. Call our office if you: Have a temperature over 101.5 Are unable to urinate Have increasing difficulty walking or using your legs Have incisional pain that continues to increase rather than stabilize or improve Have any drainage of pus from your incisions Have drainage which completely saturates the bandage documented in [facility] Note Attestation signed by Medina Montes MD at 01/13/2023 8:32 AM I personally saw and examined the patient on the same date of service as resident/fellow . I discussed the findings and therapeutic plan with the resident/fellow . I agree with the documentation, except for any edits/updates below. Teaching Physician's Revisions: Subjective Patient ID: Radha Mendoza is a 47 y.o. female who presents for Follow-up. HPI 47 y.o. year old female with history of seronegative RA, bilateral hand and right knee OA status post total knee replacement complicated by cellulitis, lumbar back surgery, migraine headaches, COPD/CESARIO on CPAP, history of AL, CHF, PTSD, bipolar, anxiety and morbid obesity presenting for routine follow up. Lab work reviewed with patient and largely normal with exception of slight elevation in CRP 7.5. Her joint pain is well controlled now after increasing to methotrexate 7 tablets weekly. She denies side effects including oral ulcers, hair loss, or infections. Morning pain and stiffness is down to 30 minutes. She has no synovitis. Review of Systems Constitutional: Positive for fatigue. Negative for chills, fever and unexpected weight change. HENT: Positive for trouble swallowing. Negative for mouth sores. Eyes: Positive for itching (dry). Negative for photophobia, pain, redness and visual disturbance. Respiratory: Positive for apnea. Negative for cough, shortness of breath and wheezing. Cardiovascular: Negative for chest pain and palpitations. Gastrointestinal: Negative for constipation, diarrhea, nausea and vomiting. Endocrine: Negative for cold intolerance. Musculoskeletal: Positive for arthralgias. Negative for back pain, joint swelling, myalgias, neck pain and neck stiffness. Skin: Negative for rash. Neurological: Negative for weakness, light-headedness and headaches. Psychiatric/Behavioral: Positive for sleep disturbance. Objective Visit Vitals BP 100/64 (BP Location: Left arm, Patient Position: Sitting) Pulse 64 Physical Exam Constitutional: General: She is not in acute distress. Appearance: Normal appearance. She is well-developed and well-groomed. HENT: Head: Normocephalic and atraumatic. Eyes: Extraocular Movements: Extraocular movements intact. Cardiovascular: Rate and Rhythm: Normal rate and regular rhythm. Heart sounds: No murmur heard. No friction rub. No gallop. Pulmonary: Effort: Pulmonary effort is normal. Breath sounds: Normal breath sounds. No wheezing, rhonchi or rales. Abdominal: General: Bowel sounds are normal. Palpations: Abdomen is soft. Musculoskeletal: General: No swelling, tenderness or deformity. Cervical back: Normal range of motion and neck supple. Skin: General: Skin is warm and dry. Capillary Refill: Capillary refill takes less than 2 seconds. Findings: No rash. Neurological: General: No focal deficit present. Mental Status: She is alert and oriented to person, place, and time. Psychiatric: Mood and Affect: Mood normal. Thought Content: Thought content normal. Assessment/Plan 47 y.o. year old female with history of bilateral hand and right knee OA status post total knee replacement complicated by cellulitis, lumbar back surgery, migraine headaches, COPD/CESARIO on CPAP, history of AL, CHF, PTSD, bipolar, anxiety and morbid obesity presenting for routine follow up. Seronegative rheumatoid arthritis - now in remission with DAS28 ESR score 1.14 - continue methotrexate 7 tablets (17.5 mg) weekly with folic acid - presented with polyarthragias of the knees, wrists, hands, hip with AM pain/stiffness and associated synovitis - prednisone trial aborted due to mood changes - in office [facility] ultrasound showed bilateral mild to moderate synovitis of the wrists - labs through PCP faxed over and reviewed showing: ESR 29, CRP 4.28, negative/normal CMP, RF, CCP, and LUCINDA - 40% improvement over 6 weeks with methotrexate 5 tablets. 1 hour AM pain/stiffness with synovitis Long-term use of methotrexate - continue routine lab monitoring with inflammatory markers, CBC, and liver enzymes ever 3 months Bilateral knee osteoarthritis Bilateral hand osteoarthritis - status post right knee replacement - in office [facility] ultrasound of the left knee did not show double contour sign concerning for gout Bilateral carpal tunnel syndrome -seen on previous EMG - in office [facility] ultrasound with left median nerve measuring 13 mm - patient wears nocturnal wrist braces Tobacco dependence - actively smoking 1.5 PPD - encouraged cessation and counseled that work up and diagnosis of any underlying inflammatory arthropathy would exacerbate her symptoms Morbid obesity - BMI 51.39 - encouraged lifestyle modification RTC in 4 months Patient was seen wi (more content not included)...[facility] [place]05-08-2023 Note Attestation signed by Medina Montes MD at 10/27/2022 1:42 PM I personally saw and examined the patient on the same date of service as resident/fellow . I discussed the findings and therapeutic plan with the resident/fellow . I agree with the documentation, except for any edits/updates below. Teaching Physician's Revisions: Subjective Patient ID: Radha Mendoza is a 47 y.o. female who presents for Follow-up. HPI 47 y.o. year old female with history of seronegative RA, bilateral hand and right knee OA status post total knee replacement complicated by cellulitis, lumbar back surgery, migraine headaches, COPD/CESARIO on CPAP, history of AL, CHF, PTSD, bipolar, anxiety and morbid obesity presenting for routine follow up. Last visit she was started on methotexate 5 tablets weekly with folic aid. She continues to complain of AM pain/stiffness lasting one hour. She described 40% improvement of her symptoms. Her synovitis has improved and more intermittent. She complains of mild nausea but no other side effects to methotrexate including hair loss, oral ulcers, or infections. Review of Systems Constitutional: Positive for fatigue. Negative for chills, fever and unexpected weight change. HENT: Positive for trouble swallowing. Negative for mouth sores. Eyes: Positive for itching (dry). Negative for photophobia, pain, redness and visual disturbance. Respiratory: Positive for apnea. Negative for cough, shortness of breath and wheezing. Cardiovascular: Negative for chest pain and palpitations. Gastrointestinal: Negative for constipation, diarrhea, nausea and vomiting. Endocrine: Negative for cold intolerance. Musculoskeletal: Positive for arthralgias and joint swelling (wrists and hands). Negative for back pain, myalgias, neck pain and neck stiffness. Skin: Negative for rash. Neurological: Negative for weakness, light-headedness and headaches. Psychiatric/Behavioral: Positive for sleep disturbance. Objective Visit Vitals BP 107/68 (BP Location: Left arm, Patient Position: Sitting) Pulse 80 Physical Exam Constitutional: General: She is not in acute distress. Appearance: Normal appearance. She is well-developed and well-groomed. HENT: Head: Normocephalic and atraumatic. Eyes: Extraocular Movements: Extraocular movements intact. Cardiovascular: Rate and Rhythm: Normal rate and regular rhythm. Heart sounds: No murmur heard. No friction rub. No gallop. Pulmonary: Effort: Pulmonary effort is normal. Breath sounds: Normal breath sounds. No wheezing, rhonchi or rales. Abdominal: General: Bowel sounds are normal. Palpations: Abdomen is soft. Musculoskeletal: General: Swelling and tenderness (bilateral wrists and MCPs) present. No deformity. Cervical back: Normal range of motion and neck supple. Skin: General: Skin is warm and dry. Capillary Refill: Capillary refill takes less than 2 seconds. Findings: No rash. Neurological: General: No focal deficit present. Mental Status: She is alert and oriented to person, place, and time. Psychiatric: Mood and Affect: Mood normal. Thought Content: Thought content normal. Assessment/Plan 47 y.o. year old female with history of bilateral hand and right knee OA status post total knee replacement complicated by cellulitis, lumbar back surgery, migraine headaches, COPD/CESARIO on CPAP, history of AL, CHF, PTSD, bipolar, anxiety and morbid obesity presenting for routine follow up. Seronegative rheumatoid arthritis - polyarthragias of the knees, wrists, hands, hip with 30 minutes of AM pain/stiffness and associated synovitis - prednisone trial aborted due to mood changes - in office [facility] ultrasound showed bilateral mild to moderate synovitis of the wrists - labs through PCP faxed over and reviewed showing: ESR 29, CRP 4.28, negative/normal CMP, RF, CCP, and LUCINDA - 40% improvement over 6 weeks with methotrexate 5 tablets. 1 hour AM pain/stiffness with synovitis - will increase to methotrexate 7 tablets (17.5 mg) weekly with folic acid Long-term use of methotrexate - will obtain inflammatory markers, CBC, and liver enzymes for monitoring Bilateral knee osteoarthritis Bilateral hand osteoarthritis - status post right knee replacement - in office [facility] ultrasound of the left knee did not show double contour sign concerning for gout Bilateral carpal tunnel syndrome -seen on previous EMG - in office [facility] ultrasound with left median nerve measuring 13 mm - patient to obtain nocturnal wrist braces Tobacco dependence - actively smoking 1.5 PPD - encouraged cessation and counseled that work up and diagnosis of any underlying inflammatory arthropathy would exacerbate her symptoms Morbid obesity - BMI 51.39 - encouraged lifestyle modification RTC in 2 [facility] (more content not included)...[facility] [place] 09-18-2022 NoteOrthopedic Surgery Subjective Chief complaint: Chief Complaint Patient presents with Right Knee - Edema 09/18/22 47-year-old female status post right total knee arthroplasty on 03/01/2022. Here for follow-up with cellulitis of the distal right lower extremity. She does have some mild pain about her right knee but no feelings of instability and she feels her range of motion is good and overall is doing well with regard to her knee. No fevers, chills, chest pain, shortness of breath. She was recently seen in the emergency department for the cellulitis and is currently on oral antibiotics. Patient stated that she presented to the ER for her cellulitis that she frequently gets and they wanted her to follow up to rule out septic arthritis. She denied any knee pain and stated that she is walking well with no problems, no walking aids and happy with the results of surgery. Patient has not been compliment with the scheduled follow ups for her knee 04/03/22:Radha Mendoza is a 47 y.o. year old female presenting for follow up for her Right knee she is S/P Right TKA DOS 03/01/2022. She is overall doing well she denied any fever or chills, pain controlled she is walking well with no walking aids and doing well with PT. She stated that she starting having Right leg redness and swelling, patient has history of bilateral lower extremity swelling. Patient has history of cellulitis previously , she is not wearing her compression stocking today, she is accompanied by her mother. New X rays obtained today. Patient History Past Surgical History: Procedure Laterality Date SECTION, CLASSIC HERNIA REPAIR KNEE ARTHROPLASTY MENISCECTOMY SPINAL FUSION TONSILLECTOMY Past Medical History: Diagnosis Date CHF (congestive heart failure), NYHA class I ([facility]) Chronic mental illness COPD (chronic obstructive pulmonary disease) ([facility]) Heart attack ([facility]) Neuropathy Objective General examination: Patient is Aox3 no acute distress, no labored breathing, looks comfortable , no acute distress, Gait examination: walking well with no walking aids. Exam of the Right knee showed well healed incision with no redness hotness or drainage , good ROM 0- 110 , no instability, no effusion, no DVT , intact N/V exam, no effusion, Evidence of bilateral lower extremity swelling , lower leg redness Right lower extremity, consistent with cellulitis. Imaging: None today Assessment/Plan Radha Mendoza is a 47 y.o. year old female with Right TKA performed on 03/01/2022, 6 months post op with good ROM no concerns for Right knee infection, Right leg cellulitis being treated by oral abx. PLAN: -Patient advised to continue her antibiotics for cellulitis and that if this is not controlled there is a risk of the infection spreading to the joint. - Return to clinic with any fever or chills, or knee pain - Follow up in one year for annual check. Bandar Waters, PGY3 Orthopedic Surgery Resident By using the attestations below, the signing clinician agrees that I have read and verify that the documentation has been personally reviewed by me and ensure that the documentation accurately reflects the encounter. GC: I personally saw this patient on the day of the encounter, performed the rawls portion(s) of the service and participated in the management and confirm the resident's documentation. Please note there may be an additional personal documentation from me. I personally saw and examined the patient on the same date of service as resident. I discussed the findings and therapeutic plan with the resident. I agree with the documentation, except for any edits/updates below. Teaching Physician's Revisions: None I, Peterson Bhatia, personally performed the face to face evaluation on this patient. I discussed with the patient and confirmed the accuracy and completeness of the aforementioned history prepared by the [facility] provider, and I personally performed the clinical examination of the patient. I discussed the treatment plan with the patient. Peterson Bhatia MD[facility] [place] Note Attestation signed by Cristina Avalos MD at 09/12/2022 12:54 PM By using the attestations below, the signing clinician agrees that I have read and verify that the documentation has been personally reviewed by me and ensure that the documentation accurately reflects the encounter. GC: I personally saw this patient on the day of the encounter, performed the rawls portion(s) of the service and participated in the management and confirm the resident's documentation. Please note there may be an additional personal documentation from me. I was present and supervised the procedure Patient ID: Radha Mendoza is a 47 y.o. female. Procedures [place] Protocol Documentation for Invasive Procedures List all members of procedural/operative team: Verification of correct patient using two patient identifiers. Verification of correct imaging studies and implant. Verification of correct equipment including emergency equipment. Site marked with marker???s initials. Verification of time-out process. Consent signed. LOCATION: B/L Wrists and Left Median Nerve CLINICAL INDICATION: Joint Pain, CTS, Left Knee FINDINGS: * Joint Space: enlarged joint space without any evidence of erosions, osteophytes present. Left knee joint space intact without evidence of erosions or double contour sign * Soft tissue structure around joint: enlarged wrist synovial space with areas of hypoechoeity with moderate positive doppler signal indicating inflammation. Enlarged left median nerve IMPRESSION: enlarged wrist synovial space with areas of hypoechoeity with moderate positive doppler signal indicating inflammation. Left Median nerve enlarged 13 mm [facility] [place]03-24-2023 Note Attestation signed by Cristina Avalos MD at 09/12/2022 12:52 PM By using the attestations below, the signing clinician agrees that I have read and verify that the documentation has been personally reviewed by me and ensure that the documentation accurately reflects the encounter. GC: I personally saw this patient on the day of the encounter, performed the rawls portion(s) of the service and participated in the management and confirm the resident's documentation. Please note there may be an additional personal documentation from me. Subjective Patient ID: Radha Mendoza is a 47 y.o. female who presents for No chief complaint on file.. HPI 47 y.o. year old female with history of bilateral hand and right knee OA status post total knee replacement complicated by cellulitis, lumbar back surgery, migraine headaches, COPD/CESARIO on CPAP, history of AL, CHF, PTSD, bipolar, anxiety and morbid obesity referred for evaluation of her chronically elevated inflammatory markers. Her right knee replacement was recently complicated by a mechanical fall at home that occurred on February 2022. She followed up with Ortho and was prescribed PT.Yesterday she started experiencing another bout of cellultiis with pain, erythema and swelling of her RLE> She has yet to see her PCP. She complains of polyarthragias of the knees, wrists, hands, hips. She endorses AM pain/stiffness lasting 30 minutes before she can function with mild improvement throughout the day. She has associated daily synovitis. Rheum positive: dry eyes/mouth, dysphagia, Rheum negative: alopecia, vision changes, malar or other rash, oral ulcers, Raynaud's She was given a prednisone burst which she discontinued after a week due to mood changes. She felt no large difference with the exception of some help with her mobility Past Hospital: none Past Surgical: right knee surgery 2021, lumbar surgery 2009 and 2010, hernia repair, x2, pain pump Medications and allergies reviewed. Family History: mother with hypothyroidism and rheumatoid arthritis Social: - work: on disability - 1.5 PPD/rare alcohol use/smokes THC Review of Systems Constitutional: Positive for fatigue. Negative for chills, fever and unexpected weight change. HENT: Positive for trouble swallowing. Negative for mouth sores. Eyes: Positive for itching (dry). Negative for photophobia, pain, redness and visual disturbance. Respiratory: Positive for apnea. Negative for cough, shortness of breath and wheezing. Cardiovascular: Negative for chest pain and palpitations. Gastrointestinal: Negative for constipation, diarrhea, nausea and vomiting. Endocrine: Negative for cold intolerance. Musculoskeletal: Positive for arthralgias and joint swelling (wrists and hands). Negative for back pain, myalgias, neck pain and neck stiffness. Skin: Negative for rash. Neurological: Negative for weakness, light-headedness and headaches. Psychiatric/Behavioral: Positive for sleep disturbance. Objective There were no vitals taken for this visit. Physical Exam Constitutional: General: She is not in acute distress. Appearance: Normal appearance. She is well-developed and well-groomed. HENT: Head: Normocephalic and atraumatic. Eyes: Extraocular Movements: Extraocular movements intact. Cardiovascular: Rate and Rhythm: Normal rate and regular rhythm. Heart sounds: No murmur heard. No friction rub. No gallop. Pulmonary: Effort: Pulmonary effort is normal. Breath sounds: Normal breath sounds. No wheezing, rhonchi or rales. Abdominal: General: Bowel sounds are normal. Palpations: Abdomen is soft. Musculoskeletal: General: Swelling and tenderness (bilateral wrists and MCPs) present. No deformity. Cervical back: Normal range of motion and neck supple. Skin: General: Skin is warm and dry. Capillary Refill: Capillary refill takes less than 2 seconds. Findings: No rash. Neurological: General: No focal deficit present. Mental Status: She is alert and oriented to person, place, and time. Psychiatric: Mood and Affect: Mood normal. Thought Content: Thought content normal. Assessment/Plan 47 y.o. year old female with history of bilateral hand and right knee OA status post total knee replacement complicated by cellulitis, lumbar back surgery, migraine headaches, COPD/CESARIO on CPAP, history of AL, CHF, PTSD, bipolar, anxiety and morbid obesity referred for evaluation of her chronically elevated inflammatory markers. Seronegative rheumatoid arthritis - polyarthragias of the knees, wrists, hands, hip with 30 minutes of AM pain/stiffness and associated synovitis - prednisone trial aborted due to mood changes - in office [facility] ultrasound showed bilateral mild to moderate synovitis of the wrists - (more content not included)...[facility]02[facility]22-2023 NotePROCEDURE: XR HIPS MARTHA 5V W PELVIS HISTORY: Joint pain COMPARISON: None. FINDINGS: BONES:No fracture, acute abnormality, or significant arthropathy. SOFT TISSUES:No visible soft tissue swelling. EFFUSION:None visible. OTHER: Mechanical fusion and degenerative changes of lower lumbar spine. IMPRESSION: 1. No acute bone abnormality or significant degenerative changes of the hip joints. Electronically authenticated by: GILL MORENO Date: 2022-08-13 10:48[facility]12-07-2022 Miscellaneous Notes* Telephone Encounter - Bandar Laguna - 05/28/2022 2:21 PM EST Pt is being referred by [facility] dx Breast Ca. Per Karina Antunez schedule new pt consult once we have a bxdate. They will call us when it is scheduled. [place] [address]84-14-2022 History of Present illness Narrative* Katy Guo RN - 01/02/2022 9:00 AM EDT Patient did not show for appointment at 9am. Left message to call to reschedule. Dr. Arenas office notified. [facility] [employer] Phone: evaluation note* Diagnosis Irregular menstrual bleeding Irregular menstrual cycle Women's annual routine gynecological examination documented in this encounter [facility]. Phone: History general Narrative - Reported* Type Description Date Medical History Depression Medical History Back pain Medical History Congestive heart failure Medical History COPD (chronic obstructive pulmon temo disease) Medical History Neuropathy Medical History Post-traumatic stress disorder, unspecified Medical History Bipolar 2 disorder Surgical History knee surgery-right Surgical History tonsillectomy Surgical History esophagectomy Surgical History C section Surgical History D&C Surgical History back surgery Surgical History uterine ablation Surgical History pain pump battery change Hospitalization History see above [place] Other InstructionsNot on filedocumented in this encounter [facility] Summary Purpose Family History No Family History Records FoundNo Family History Records FoundNo Family History Records FoundNo Family History Records FoundNo Family History Records FoundNo Family History Records FoundNo Family History Records FoundNo Family History Records FoundNo Family History Records Found Advance Directives No Advanced Directives Records FoundNo Advanced Directives Records FoundNo Advanced Directives Records FoundNo Advanced Directives Records FoundNo Advanced Directives Records FoundNo Advanced Directives Records FoundNo Advanced Directives Records FoundNo Advanced Directives Records FoundNo Advanced Directives Records Found Additional Source Comments Care Teams (unrecognized sec tion and content) Tile Machine Operator Relationship Specialty Start Date End Date Wally Ghosh MD [address] [address] PCP - General 11/06/21 Tile Machine Operator Relationship Specialty Start Date End Date Mingo Thapa [address] [facility] [address] [place] [address] PCP - General Family Medicine 02/19/17 Tile Machine Operator Relationship Specialty Start Date End Date Mingo Thapa [address] [facility] [address] [place] [address] PCP - General Family Medicine 02/19/17 Tile Machine Operator Relationship Specialty Start Date End Date Yamilex Donniehuyen Norman APRN - FIELD RETURN REPAIRER [address] [facility] [address] [place], [place] [id number] PCP - General Nurse Practitioner 02/19/23 Tile Machine Operator Relationship Specialty Start Date End Date Wally Ghosh MD [address] [place] [address] PCP - General Internal Medicine 08/08/21 INFORMATION SOURCE (unrecogn ized section and content) DATE CREATED AUTHOR 01/08/2022 [facility] DATE CREATED AUTHOR AUTHOR'S ORGANIZ ATION 03/03/2022 [facility] DATE CREATED AUTHOR AUTHOR'S ORGANIZ ATION 05/02/2022 [facility] DATE CREATED AUTHOR AUTHOR'S ORGANIZ ATION 05/31/[address] [facility] DATE CREATED AUTHOR AUTHOR'S ORGANIZ ATION 10/29/2022 [facility] DATE CREATED AUTHOR AUTHOR'S ORGANIZ ATION 03/07/2023 [facility] DATE CREATED AUTHOR AUTHOR'S ORGANIZ ATION 07/15/2023 [facility] DATE CREATED AUTHOR AUTHOR'S ORGANIZ ATION 08/22/2023 [facility] DATE CREATED AUTHOR AUTHOR'S ORGANIZ ATION 08/25/2023 [facility] EPIC Source Comments (unrecognize d section and content) In the event this informatio n is protected by the Federal Confidentiality of Alcohol and Drug Abuse Patient Records regulations: The Federal rules restrict any use of the information to criminally investigate or prosecute any alcohol or drug abuse patient.[facility] the event this information is protected by the Federal Confidentiality of Alcohol and Drug Abuse Patient Records regulations: The Federal rules restrict any use of the information to criminally investigate or prosecute any alcohol or drug abuse patient.[facility] Reason for Visit (unrecogniz ed section and content) Reason Comments Appointment Specialty Diagnoses / Procedures Referred By Adriana richardson Referred To Contact Diagnoses Post laminectomy syndrome Post laminectomy syndrome [M96.1] Procedures LA IMPLTJ/RPLCMT ITHCL/EDRL DRUG NFS PRGRBL PUMP INTERTHECAL PAIN PUMP REPLACEMENT Mohit Dejesus MD [address] [place] [address] [facility] [address] [place] [address] Referral ID Status Reason Start Date Expiration Date Visits Re quested Visits Authorized [id number] 1 1 Scheduled Active and Recently Administ ered Medications (unrecognized section and content) Medication Order 03/03/2023 03/04/2023 03/05/2023 sodium chloride flush 0.9 % injection 5-40 mL 5-40 mL, IntraVENous, EVERY 12 HOURS SCHEDULED (2 times per day), First dose on Telma 03/05/23 at 2100, Until Discontinued, For Line Patency: Peripheral IV = 5 mL; Midline or Central Line = 10 mL/lumen. If following IV push medication, administer flush at same rate as the IV push. Flush volume is determined by type of infusion therapy being given. For non-viscous solutions use: Peripheral IV = 5 mL Midline or Central Line = 10 mL/lumen For viscous solutions (i.e. blood components, parenteral nutrition, contrast media, or after obtaining blood sample) use: Peripheral IV = 10 mL Midline or Central Line = 20 mL/lumen, Pre-op (day of surgery) 2100 (Due) vancomycin 1000 mg IVPB in 250 mL NS addavial (COMPLETED) 1,000 mg, IntraVENous, at 250 mL/hr, Administer over 60 Minutes, ONCE, On Telma 03/05/23 at 1315, For 1 dose, Pre-op (day of surgery) 1501 (New Bag - Prov ider: Gunjan East, ETHYLBENZENE CONVERTER OPERATOR - INSURANCE BROKER - Comment: given over 1 hr) Continuous Medication Order 03/03/2023 03/04/2023 03/05/2023 0.9 % sodium chloride infusion IntraVENous, at 125 mL/hr, CONTINUOUS, Starting on Telma 03/05/23 at 1315, Pre-op (day of surgery) 1315 (Due) lactated ringers IV soln infusion IntraVENous, at 125 mL/hr, CONTINUOUS, Starting on Telma 03/05/23 at 1315, Pre-op (day of surgery) 1315 (Due) PRN Medication Order 03/03/2023 03/04/2023 03/05/2023 0.9 % sodium chloride infusion IntraVENous, at 5-250 mL/hr, PRN, if patient receiving piggyback infusions and maintenance fluids are not ordered OR KVO fluids to protect IV site / prevent frequent line interruptions/ long duration, Starting on Telma 03/05/23 at 1255, For piggyback infusion, administer at same rate as piggyback for a total of 25 mL. Enter 25 mL into dose field and piggyback rate into rate field of order. If piggyback is infusing at a rate less than 100 mL/hr, enter 25 mL into dose field and 100 mL/hr into rate field of order. For KVO fluids, enter rate of 20 mL/hr or less into rate field of order., Pre-op (day of surgery) bupivacaine-EPINEPHrine (MARCAINE-w/EPINEPHRINE) 0.5% -[id number] 30 mL, lidocaine 1 % 40 mL (CANCELED) PRN, Starting on Telma 03/05/23 at 1539, Intra-op 1539 (Given - Provid er: Mohit Dejesus MD) fentaNYL (SUBLIMAZE) injection 25 mcg 25 mcg, IntraVENous, EVERY 5 MIN PRN, 4 doses, Starting on Telma 03/05/23 at 1540, Until Discontinued, Pain Moderate (4-6), Phase I - Initial therapy for moderate pain., PACU only fentaNYL (SUBLIMAZE) injection 50 mcg 50 mcg, IntraVENous, EVERY 10 MIN PRN, 4 doses, Starting on Telma 03/05/23 at 1540, Until Discontinued, Pain Severe (7-10), Phase I - Initial therapy for severe pain., PACU only lidocaine PF 1 % injection 1 mL 1 mL, IntraDERmal, ONCE PRN, 1 dose, Starting on Thu03/06/23 at 0000, Until 03/07/23 at 0000, IV start, Pre-op (day of surgery) ondansetron (ZOFRAN) injection 4 mg 4 mg, IntraVENous, ONCE PRN, 1 dose, Starting on Telma 03/05/23 at 1540, Until Thu03/06/23 at 1540, Nausea, PACU only oxyCODONE (ROXICODONE) immediate release tablet 5 mg 5 mg, Oral, ONCE PRN, 1 dose, Starting on Telma 03/05/23 at 1540, Until Thu03/06/23 at 1540, Pain Moderate (4-6), Pain Severe (7-10), PHASE II, PACU only sodium chloride flush 0.9 % injection 5-40 mL 5-40 mL, IntraVENous, PRN, Starting on Telma 03/05/23 at 1255, Until Discontinued, Line Care, After every IV line use, For Line Patency: Peripheral IV = 5 mL; Midline or Central Line = 10 mL/lumen. If following IV push medication, administer flush at same rate as the IV push. Flush volume is determined by type of infusion therapy being given. For non-viscous solutions use: Peripheral IV = 5 mL Midline or Central Line = 10 mL/lumen For viscous solutions (i.e. blood components, parenteral nutrition, contrast media, or after obtaining blood sample) use: Peripheral IV = 10 mL Midline or Central Line = 20 mL/lumen, Pre-op (day of surgery) FOR RECORDS PERTAINING TO PATIENTS WHO ARE OR HAVE BEEN ENROLLED IN A CHEMICAL DEPENDENCY/SUBSTANCEABUSE PROGRAM, SOME INFORMATION MAY BE OMITTED. This clinical summary was aggregated from multiple sources. Caution should be exercised in using it in the provision of clinical care. This summary normalizes information from multiple sources, and as a consequence, information in this document may materially change the coding, format and clinical context of patient data. In addition, data may be omitted in some cases. CLINICAL DECISIONS SHOULD BE BASED ON THE PRIMARY CLINICAL RECORDS. [facility] [employer] [facility]. provides no warranty or guarantee of the accuracy or completeness of information in this document.
--- NOTE | 2023-09-02 13:18 | XR_ITS ---
The [address] [address] Patient Name: FIDELINA FONTENOT MRN: [id number] date: 1975 Sex: F Assigned Patient Location: [facility] Current Patient Location: [facility] Accession/Order Number: [id number] Exam Date: 09/02/2023 13:15 Report Date: 09/02/2023 16:23 At the request of: ALIS STEINBERG Procedure: XR chest 2V EXAM: XR chest 2V HISTORY: Preop examination. COMPARISON: Chest radiograph dated 04/28/2023. TECHNIQUE: PA and lateral views of the chest performed. FINDINGS: The trachea is midline. There is stable mild enlargement of the cardiac silhouette. There are stable prominent and coarsened interstitial markings throughout both lung medeiros suggesting chronic interstitial lung disease. Correlate with a clinical history of emphysema. There is no acute consolidation or infiltrate. There is no pleural effusion or pulmonary vascular congestion. There is no pneumothorax or acute osseous abnormality. XR/XR chest 2V IMPRESSION: There is no acute cardiopulmonary process. Stable prominent and coarsened interstitial markings throughout both lung medeiros suggesting chronic interstitial lung disease. Correlate with a clinical history of emphysema. Electronically authenticated by: MELISSA SCHREIBER Date: 09/02/2023 16:23
[2023-09-02 13:21] LABS: Basophils Absolute Auto 0.1 10^3/uL (0.0-0.1); Basophils Percent Auto 0.7 % (0.2-2.0); Eosinophils Absolute Auto 0.1 10^3/uL (0.0-0.7); Eosinophils Percent Auto 1.6 % (0.9-7.0); Hematocrit 38.9 % (36.0-48.0); Hemoglobin 12.5 g/dL (12.0-16.0); Immature Granulocytes Abs Auto 0.02 10^3/uL (0.00-0.03); Immature Granulocytes Pct Auto 0.2 % (0.0-0.5); Lymphocytes Absolute Auto 1.9 10^3/uL (1.2-3.8); Lymphocytes Percent Auto 22.7 % (20.5-60.0); Mean Corpuscular HGB Conc 32.1 g/dL (29.9-35.2); Mean Corpuscular Hemoglobin 28.7 pg (26.7-34.0); Mean Corpuscular Volume 89.2 fL (81.0-99.0); Mean Platelet Volume 9.9 fL (9.5-13.5); Monocytes Absolute Auto 0.5 10^3/uL (0.3-0.8); Monocytes Percent Auto 5.5 % (1.7-12.0); Neutrophils Absolute Auto 5.8 10^3/uL (1.4-6.5); Neutrophils Percent Auto 69.3 % (43.0-75.0); Platelet Count 206 10^3/uL (150-450); Red Blood Count 4.36 10^6/uL (4.20-5.40); White Blood Count 8.3 10^3/uL (4.0-11.0)
--- NOTE | 2023-09-02 13:30 | XR_ITS ---
The [address] [address] Patient Name: FIDELINA FONTENOT MRN: [id number] date: 1975 Sex: F Assigned Patient Location: [facility] Current Patient Location: Accession/Order Number: [id number] Exam Date: 09/02/2023 13:15 Report Date: 09/03/2023 08:57 At the request of: CM TORRE Procedure: XR cervical spine w flex/ext EXAMINATION: XR cervical spine w flex/ext HISTORY: preop COMPARISON: No relevant comparison available. FINDINGS: BONES: Slight reversal of normal lordotic curvature. No fracture, bone lesion, or listhesis. No change in alignment during flexion and extension. DISC SPACES: Mild narrowing C4-5. PARASPINOUS: Negative. No paraspinous abnormality is seen. OTHER: Negative. XR/XR cervical spine w flex/ext IMPRESSION: 1. Slight reversal of normal lordotic curvature; positioning versus muscle spasm. 2. C4-5 mild degenerative disc disease. Electronically authenticated by: GILL MORENO Date: 09/03/2023 08:57
[2023-09-02 13:59] LABS: Partial Thromboplastin Time 27.2 sec (22.3-36.2); Prothrombin Time 9.6 sec (9.0-11.6)
[2023-09-02 14:00] LABS: INR <0.93
[2023-09-02 14:14] LABS: Alanine Aminotransferase 23 U/L (14-59); Albumin Globulin Ratio 0.9; Albumin Level 3.4 g/dL (3.4-5.0); Alkaline Phosphatase 88 U/L (46-116); Anion Gap 14.3; Aspartate Amino Transferase 13 U/L (15-37); BUN Creatinine Ratio 12.5; Bilirubin Direct 0.1 mg/dL (0.0-0.2); Bilirubin Total 0.5 mg/dL (0.2-1.0); Calcium 8.2 mg/dL (8.5-10.1); Carbon Dioxide 23.8 mmol/L (21.0-32.0); Chloride 105 mmol/L (98-107); Estimated GFR (African America >60 (>=60); Estimated GFR (Non-African Ame >60 (>=60); Globulin 3.7 g/dL; Glucose 120 mg/dL (74-106); Potassium 4.1 mmol/L (3.5-5.1); Sodium 139 mmol/L (136-145); Total Protein 7.1 g/dL (6.4-8.2)
== END 2023-09-02 12:36 | disposition home or self-care (01) ==
LOC: PST 12:36
PROVIDERS: PCP Nurse Practitioner Primary Care; Visit Provider Obstetrics & Gynecology
DX: Z01.810 Encounter for preprocedural cardiovascular examination (principal); Z01.812 Encounter for preprocedural laboratory examination; N92.0 Excessive and frequent menstruation with regular cycle; R10.2 Pelvic and perineal pain; N94.6 Dysmenorrhea, unspecified; N94.10 Unspecified dyspareunia; Z01.818 Encounter for other preprocedural examination
CPT/HCPCS: 71046; 72052; 80048; 80076; 85025; 85610; 85730

== ENCOUNTER 2023-09-07 01:42 | Emergency (ER) | payer MEDICARE, SELFPAY ==
--- OUTSIDE RECORDS SUMMARY | 2023-09-07 01:49 | XMS_ITS | CCD ---
Author Name Unknown Address [address] [place] [address] Organization [facility] Care Team Providers Care Market Survey Representative Name Role Phone Unavailable Primary Care Provider Unavailabl e Faisal Nix MD, Wally Primary Care Provider [facility] Referring Unavailable Jannette, Peterson Admitting Unavailable Jannette, Peterson Attending Unavailable ROSA, CM Referring Unavailable LEE, CM Primary Care Unavailable Jannette, Peterson Admitting Unavailable Jannette, Peterson Attending Unavailable SELF, REFERRED Referring Unavailable ROSA, CM Primary Care Unavailable Jannette, Peterson Admitting Unavailable Jannette, Peterson Attending Unavailable ROSA CM Referring Unavailable LEE, CM Primary Care Unavailable SHAMMO, DONNIE Referring Unavailable NILRick Omer Attending Unavailable NILL, Rick Contreras Attending Unavailable Mingo Thapa Primary Care Provider SHAMMO, DONNIE Admitting Unavailable SHAMMO, DONNIE Attending Unavailable SHAMMO, DONNIE Primary Care Unavailable AGUSTIN ADAMSON Consulting Unavailable SHAMMO, DONNIE Consulting Unavailable SHAMMO, DONNIE Admitting Unavailable SHAMMO, DONNIE Attending Unavailable SHAMMO, DONNIE Primary Care Unavailable SHAMMO, DONNIE Consulting Unavailable SHAMMO, DONNIE Primary Care Unavailable REQUEST, NONE LISTED Consulting Unavaila ble REQUEST, DR PIZANO LISTED Attending Unavaila ble REQUEST, NONE LISTED [...] Attending Unavailable MISC, DR REYES Admitting Unavailable KLIPPER, AGUSTIN Consulting Unavailable SHAMMO, DONNIE Primary Care Unavailable SHAMMO, DONNIE Attending Unavailable SHAMMO, DONNIE Admitting Unavailable 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, [facility] Primary Care Provi orly MOHIT DEJESUS Admitting Unavailable WMMOHIT N Attending Unavailable SH[facility] Unavailable WM, MOHIT N Referring Unavailable SHAMMO, [facility] Primary Care Unavailable Franklin, Kayla Unavailable ALIS STEINBERG Attending Unavailable ADELAIDA SUBRAMANIAN Attending Unavailable Faisal Nix MD, Wally Primary Care Provider PETERSON BHATIA Attending Unavailable KIM GARCIA Attending Unavailable KIM GARCIA Attending Unavailable KIM GARCIA Attending Unavailable KAHALEHMEDINA Attending Unavailable KAHALEHMEDINA Attending Unavailable OVITT, FELIX Attending Unavailable KIM GARCIA Attending Unavailable FELIX HERNANDEZ Referring Unavailable VALORIE ARIAS Referring Unavailable KOFI BETTS Attending Unavailable Allergies Allergy Classification Reported Allergen(s) Allergy Type Date of Onset Reaction(s) Facility (5 sources) Doxycycline; Translations: [DOXYCYCLINE] Drug Allergy 7 [facility] Grid2020 (6 sources) Oxytocin; Translations: [OXYTOCIN] Drug Allergy 4 Anaphylaxis Grid2020 Work Phone: (5 sources) SUMAtriptan; Translations: [SUMATRIPTAN] Drug Allergy 7 Other (See Comments) Grid2020 Work Phone: (1 source) Desonide Drug Allergy 1 [facility] Repository (3 sources) Doxycycline Drug Allergy 0 [facility] Repository (4 sources) Morphine; Translations: [MORPHINE] Drug Allergy 7 [facility] Repository (4 sources) NSAIDs; Translations: [NSAIDS (NON-STEROIDAL ANTI-INFLAMMATO RY DRUG)] Drug allergy (disorder) 0 [facility] Repository (2 sources) Oxytocin Drug Allergy 0 Unknown [facility] Repository (4 sources) Plasmin Drug Allergy 9 Unknown [facility] Repository (3 sources) Doxycycline Drug Allergy 7 [facility] (4 sources) Non-steroidal anti-inflammato ry agent Drug Allergy 7 Other: See Comments [facility] (3 sources) SUMAtriptan Drug Allergy 7 Other: See Comments [facility] (2 sources) Oxytocin Drug Allergy 6 [facility] Repository (3 sources) dulaglutide; Translations: [DULAGLUTIDE] Drug Allergy 3 Nausea And Vomiting [facility] [email or web address] (1 source) dulaglutide Drug Allergy vomiting [employer] Other (1 source) ADHESIVE TAPE-SILICONES; Translations: [ADHESIVE TAPE-SILICONES] Propensity to adverse reactions to drug (disorder) 12-19-201 4 [facility] Repository Medications Current Medications Medication Drug Class(es) [...] tablet (4 sources) beta-Adrenergic Elio Start: 09-05-19 22 take 1 tablet by mouth once daily metoprolol succinate (TOPROL XL) 25 MG extended release tablet take 1 tablet by mouth once daily 0 09/04/2021 Active take 1 tablet by raz every twenty-four hours in the morning metoprolol [...] by mouth every 6 hours as needed. [id number] 200 actuat albuterol 0.09 mg/actuat metered dose inhaler (3 sources) beta2-Adrenergic Agonist Start: 05-16-2022 take 2 puff(s) by mouth every four hours albuterol HFA (PROVENTIL HFA, VENTOLIN HFA) 90 mcg/actuation inhaler INHALE 2 PUFFS BY MOUTH EVERY 4 HOURS IF NEEDED FOR SHORTNESS OF BREATH 0 05/16/2022 Active Start: 08-09-2021 take 2 puff(s) by mo [facility] every four hours as needed albuterol sulfate HFA 108 (90 Base) MCG/ACT inhaler INHALE 2 PUFFS BY MOUTH EVERY 4 HOURS NEEDED 0 08/09/2021 Active Comment on above: INHALE 2 PUFFS BY MO [facility] EVERY 4 HOURS IF NEEDED FOR [...] Comment on above: [facility]. brexpiprazole 2 mg oral tablet [...] to affected area three times daily. capsaicin 0.942787 mg/mg / lidocaine 0.045 mg/mg / menthol [...] mg Not-Taking/PRN take 1 capsule by mo [facility] once daily, then take 4 capsules by [...] day Not-Taking/PRN take 1 tablet by raz th twice daily, then take 2 tablets by [...] unspecified; Translations: [COPD UNSPECIFIED] Onset: 04-10-2022 Chronic Congestive heart failure; nonhypertensive (4 sources) Acute combined systolic (congestive) and diastolic (congestive) heart failure; Translations: [Chronic diastolic (congestive) heart failure] Onset: 08-25-2023 Chronic Diabetes mellitus without complication (1 source) Prediabetes; Translations: [PREDIABETES] Onset: 09-16-2022 Episodic Disorders of lipid metabolism (3 sources) Dyslipidemia; Translations: [Hyperlipidemia, unspecified] Onset: 10-29-2021 10-29-2021 Chronic Essential hypertension (2 sources) Essential (primary) hypertension; Translations: [Essential (primary) hypertension] Onset: 04-01-2022 Chronic Immunizations and screening for infectious disease [...] osteoarthritis of knee] Onset: 11-21-2021 Chronic Other acquired deformities (2 sources) Spondylolisthesis, lumbar region; Translations: [Spondylolisthesis, lumbar region] Onset: 09-03-2023 Episodic Other connective tissue disease (2 sources) Presence [...] ERYTHROCYTE SED RATE] Onset: 08-16-2022 Episodic Other lower respiratory disease (2 sources) Other forms of dyspnea; Translations: [Other forms of dyspnea] Onset: 08-25-2023 Episodic Other nervous system disorders (1 source) [...] 40.0-44.9, adult] Onset: 10-29-2021 10-29-2021 Chronic Other nutritional; endocrine; and metabolic disorders (2 sources) Morbid (severe) obesity due to excess calories; Translations: [Morbid (severe) obesity due to excess calories] Onset: 07-30-2023 Chronic Other nutritional; endocrine; and metabolic disorders (2 sources) Body mass index (BMI) 50.0-59.9, adult; Translations: [Body mass index (BMI) 50.0-59.9, adult] Onset: 07-30-2023 Chronic Other screening for suspected conditions (not [...] arthritis without rheumatoid factor, unspecified site] Onset: 10-27-2022 Chronic Spondylosis; intervertebral disc disorders; other back problems (6 sources) Postlaminectomy syndrome, not elsewhere classified; Translations: [POSTLAMINECTOMY SYNDROME NEC] Onset: 05-19-2022 Chronic Substance-related disorders (3 sources) Nicotine dependence, cigarettes, uncomplicated; Translations: [Nicotine dependence, unspecified, uncomplicated] Onset: 09-16-2022 Chronic Unclassified (2 sources) XR Onset: 11-21-2021 Unclassified (1 source) PRIMARY OSTEOARTHRITS OT SPEC SITE; Translations: [PRIMARY OSTEOARTHRITS OT SPEC SITE] Onset: 08-16-2022 Unclassified (1 source) MCFP (current) use of 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 agent; Translations: [supervisor intermediates (current) use of 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 agent] Onset: 07-29-2023 Past or Other Problems Problem Classification Problem [...] 10-29-2021 Episodic Other aftercare (2 sources) Other skilled nursing (current) drug therapy; Translations: [Other marine oil terminal superintendent (current) drug therapy] Onset: 10-27-2022 Episodic Other connective tissue disease (1 source) [...] Onset: 10-29-2021 10-29-2021 Episodic Unclassified (1 source) MCFP (current) use of 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 agent; Translations: [MCFP (current) use of 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 agent] Onset: 07-30-2023 Results Test Name Value Interpretation Reference Range Facility 36 09-04-2023 36 Spoke with patient. Advised her that I had reviewed her imaging with Dr. Arias, who would offer removal of her current hardware with laminectomies at the 2 levels above and replacement of hardware from L2-L4. He would like a CT lumbar spine prior to surgery to ensure that her currently instrumented levels actually have adequate bone fusion. Otherwise, she would need additional hardware distally. Did discuss with patient that this would be an extensive surgery lasting around 5 hours with a 2-3 night hospital stay and likely need for inpatient or outpatient rehab after surgery. Discussed that there is certainly substantial expected postoperative pain. Also discussed that it is not clear that this would help the patient's current pain radiating down her left leg. The intent of the surgery would be to try to help her be able to walk and stand for longer as though symptoms are likely attributable to her stenosis. She will need a CT lumbar spine prior to surgery as well to evaluate the bone fusion of her currently instrumented levels. Would need clearance from her primary care provider as well as her software support specialist. Will need instructions from her racecar driver regarding holding her methotrexate before and after surgery. Encouraged her to take what ever time she would like to decide, though patient reports she would like to proceed as soon as possible. Normal [facility] 36 Dr. Arias case. Dx: Degenerative lumbar stenosis, lumbar spondylolisthesis. Procedure: Removal of L4-S1 hardware, laminectomy L2-L3, posterior instrumented fusion L2-L4. Time: 5 hours. Position: prone on open Johnny. Needs: [employer] rep, O arm, universal removal set, Stealth. Needs PCP clearance and pulm clearance--has new PCP, same office; pulm is Dr. Elizabeth Phan in [place]. Will need to check with her racecar driver Dr. Estrada here to see if her methotrexate needs to be held before or after surgery. Will need CT lumbar prior to surgery to evaluated bone fusion-- I will order this. Will need bone stimulator after surgery--will order. Thank you. Normal [facility] Telephoneon 09-04-2023 Telephone [id number] Jackie Mendoza 1975 Date Provider Department Center 09/04/2023 148-[id number], [facility] [place] Family History Problem Relation Age of Onset Coronary artery disease Mother No Known Problems Father Family Status - Relation Status Age at Mother Notes: cancer brast ca, ovarian, skin, heart disease Father Normal [facility] Consulton 09-03-2023 Consult [id number] Jackie Mendoza 1975 Provider Department Center 09/03/2023 148-[place], [facility] [place] Family History Problem Relation Age of Onset Coronary artery disease Mother No Known Problems Father Family Status - Relation Status Age at Mother Notes: cancer brast ca, ovarian, skin, heart disease Father Level of Service:49015 [place] OFFICE/OUTPATIENT NEW MODERATE MDM 45 MINUTES Reason for Visit and Comments: Consult [484] - Pt is here for a CO visit for Failed Back Syndrome. Normal [facility] Office Visiton 08-25-2023 Follow-up visit [id number] Jackie Mendoza 1975 Provider Department Center 08/25/2023 Jaciel-KOFI BETTS [facility] Family History Problem Relation Age of Onset Coronary artery disease Mother No Known Problems Father Family Status - Relation Status Age at Mother Notes: cancer brast ca, ovarian, skin, heart disease Father Level of Service:32721 [place] OFFICE/OUTPATIENT NEW MODERATE MDM 45 MINUTES Normal [facility] Follow-Upon 07-30-2023 Follow-Up [id number] Jackie Mendoza 1975 Provider Department Center 07/30/2023 Patricia-MEDINA M[facility] RHEUM Nila Heal Family History Problem Relation Age of Onset No Known Problems Father Family Status - Relation Status Age at Mother Notes: cancer brast ca, ovarian, skin, heart disease Father Level of Service:61341 [place] OFFICE/OUTPATIENT ESTABLISHED MOD MDM 30 MIN () Reason for Visit and Comments: Follow-up [[id number]] [facility] 36on 07-28-2023 36 Letter will be at Check out Desk [facility] 36 Pt contacted, requested to pick letter up on 07/30/23 at her appointment [facility] 36on 07-27-2023 36 Pt is asking if it i s possible for her to have a note for work that excuses her on 07/23/23, 07/24/23 and 07/27/23; because of the great pain she has experienced. Normal [facility] CBC WITH AUTO DIFFERENTIALon 07-27-2023 Basophils (Bld) [#/Vol] 0.07 10*3/uL Normal 0.00-0.20 [facility] Comment on above: Performed By: #### L [id number] ####[facility] (BEAKER)[address] [facility] [place] [address] Basophils/100 WBC (Bld) 0.8 % Normal 0.0-1.0 [facility] Comment on above: Performed By: #### L [id number] ####[facility] (BEAKER)[address] [facility] [place] [address] Eosinophils (Bld) [#/Vol] 0.10 10*3/uL Normal 0.00-0.50 [facility] Comment on above: Performed By: #### L [id number] ####[facility] (BEAKER)[address] [facility] [place] [address] Eosinophils/100 WBC (Bld) 1.2 % Normal 0.0-6.0 [facility] Comment on above: Performed By: #### L [id number] ####[facility] (BEAKER)[address] [place] [address] Erythrocyte distribution width (RBC) [Ratio] 15.9 % High 11.5-15.0 [facility] Comment on above: Performed By: #### L [id number] ####[facility] (BEAKER)[address] [place] [address] ERYTHROCYTE MEAN CORPUSCULAR HEMOGLOBIN CONCENTRATION (G/DL) BY AUTOMATED 32.8 g/dL Normal 32.0-35.0 [facility] Comment on above: Performed By: #### L [id number] ####[facility] [place] [address] Hematocrit (Bld) [Volume fraction] 41.5 % Normal 36.0-48.0 [facility] Comment on above: Performed By: #### L [id number] ####[facility] [place] [address] Hemoglobin (Bld) [Mass/Vol] 13.6 g/dL Normal 12.0-15.0 [facility] Comment on above: Performed By: #### L [id number] ####[facility] ([facility] [place] [address] Immature granulocytes (Bld) [#/Vol] 0.02 10*3/uL Normal 0.00-0.20 [facility] Comment on above: Performed By: #### L [id number] ####[facility] (BEAKER)[address] [place] [address] Immature granulocytes/100 WBC (Bld) 0.2 % Normal 0.0-1.0 [facility] Comment on above: Performed By: #### L [id number] ####[facility] (BEAKER)[address] [place] [address] Lymphocytes (Bld) [#/Vol] 1.89 10*3/uL Normal 1.20-4.00 [facility] Comment on above: Performed By: #### L [id number] ####[facility] (BEAKER)[address] [place] [address] Lymphocytes/100 WBC (Bld) 22.5 % Normal 20.0-45.0 [facility] Comment on above: Performed By: #### L [id number] ####[facility] (BEAKER)[address] [place] [address] MCH (RBC) [Entitic mass] 28.8 pg Normal 27.0-33.0 [facility] Comment on above: Performed By: #### L [id number] ####[facility] ([facility])[address] [place] [address] MCV (RBC) [Entitic vol] 87.7 fL Normal 82.0-98.0 [facility] Comment on above: Performed By: #### L [id number] ####[facility] ([facility])[address] [place] [address] Monocytes (Bld) [#/Vol] 0.61 10*3/uL Normal 0.10-1.00 [facility] Comment on above: Performed By: #### L [id number] ####[facility] ([facility])[address] [place] [address] Monocytes/100 WBC (Bld) 7.3 % Normal 5.0-12.0 [facility] Comment on above: Performed By: #### L [id number] ####[facility] ([facility])[address] [place] [address] Neutrophils (Bld) [#/Vol] 5.71 10*3/uL Normal 1.60-7.60 [facility] Comment on above: Performed By: #### L [id number] ####[facility] ([facility])[address] [place] [address] Neutrophils/100 WBC (Bld) 68.0 % Normal 40.0-72.0 [facility] Comment on above: Performed By: #### L [id number] ####[facility] ([facility])[address] [place] [address] NRBC (PER 100 WBCS) BY AUTOMATED COUNT 0.0 % Normal 0 [facility] Comment on above: Performed By: #### L [id number] ####[facility] ([facility] [place] [address] PLATELETS (10*3/UL) IN BLOOD AUTOMATED COUNT 240 10*3/uL Normal 150-400 [facility] Comment on above: Performed By: #### L [id number] ####[facility] ([facility] [place] [address] RBC (Bld) [#/Vol] 4.73 10*6/uL Normal 3.80-5.00 [facility] Comment on above: Performed By: #### L [id number] ####[facility] ([facility] [place] [address] WBC (Bld) [#/Vol] 8.40 10*3/uL Normal 4.00-10.60 [facility] Comment on above: Performed By: #### L [id number] ####[facility] ([facility])[address] [place] [address] COMPREHENSIVE METABOLIC PANE Jamar 07-27-2023 Albumin [Mass/Vol] 4.3 g/dL Normal 3.5-5.7 [facility] Comment on above: Performed By: #### L [id number] ####[facility] ([facility])[address] [place] [address] ALP [Catalytic activity/Vol] 80 U/L Normal 34-104 [facility] Comment on above: Performed By: #### L [id number] ####[facility] ([facility])[address] [place] [address] ALT [Catalytic activity/Vol] 13 U/L Normal 7-52 [facility] Comment on above: Performed By: #### L [id number] ####[facility] [place] [address] Anion gap [Moles/Vol] 11 mmol/L Normal 7-20 [facility] Comment on above: Performed By: #### L [id number] ####[facility] ([facility] [place] [address] AST [Catalytic activity/Vol] 14 U/L Normal 13-39 [facility] Comment on above: Performed By: #### L [id number] ####[facility] ([facility] [place] [address] Bilirubin [Mass/Vol] 0.4 mg/dL Normal 0.3-1.0 [facility] Comment on above: Performed By: #### L [id number] ####[facility] ([facility])[address] [place] [address] Calcium [Mass/Vol] 9.0 mg/dL Normal 8.6-10.3 [facility] Comment on above: Performed By: #### L [id number] ####[facility] ([facility])[address] [place] [address] Chloride [Moles/Vol] 105 mmol/L Normal 98-107 [facility] Comment on above: Performed By: #### L [id number] ####[facility] ([facility])[address] [place] [address] CO2 [Moles/Vol] 26 mmol/L Normal 21-31 [facility] Comment on above: Performed By: #### L [id number] ####[facility] ([facility])[address] [place] [address] Creatinine [Mass/Vol] 0.79 mg/dL Normal 0.60-1.20 [facility] Comment on above: Performed By: #### L [id number] ####[facility] ([facility])[address] [place] [address] GLOMERULAR FILTRATION RATE ML/MIN/1.73 SQ M.PREDICTED 91.1 mL/min/1.73m*2 Normal >60.0 [facility] Comment on above: Result Comment: [facility]???s estimated glomerular filtration rate (eGFR) will no [...] of individuals. Performed By: #### L [id number] ####[facility] [place] [address] Glucose [Mass/Vol] 96 mg/dL Normal 70-100 [facility] Comment on above: Performed By: #### L [id number] ####[facility] ([facility] [place] [address] Potassium [Moles/Vol] 3.9 mmol/L Normal 3.5-5.1 [facility] Comment on above: Performed By: #### L [id number] ####[facility] ([facility] [place] [address] Protein [Mass/Vol] 6.9 g/dL Normal 6.0-8.3 [facility] Comment on above: Performed By: #### L [id number] ####[facility] ([facility])[address] [place] [address] Sodium [Moles/Vol] 138 mmol/L Normal 136-145 [facility] Comment on above: Performed By: #### L [id number] ####[facility] ([facility])[address] [place] [address] Urea nitrogen [Mass/Vol] 14 mg/dL Normal 7-25 [facility] Comment on above: Performed By: #### L [id number] ####[facility] ([facility])[address] [place] [address] UREA NITROGEN/CREATININE (MASS RATIO) IN SER/PLAS 17.7 Normal [facility] Comment on above: Performed By: #### L [id number] ####[facility] ([facility])[address] [place] [address] Follow-Upon 07-27-2023 Follow-Up [id number] Jackie Mendoza 1975 F Date Provider Department Center 07/27/2023 MEDINA HENRY [facility] Nila Heal Family History Problem Relation Age of Onset No Known Problems Father Family Status - Relation Status Age at Mother Notes: cancer brast ca, ovarian, skin, heart disease Father Level of Service:23421 [place] OFFICE/OUTPATIENT ESTABLISHED MOD MDM 30 MIN (GC) Reason for Visit and Comments: Follow-up [680886] Normal [facility] Orders Onlyon 07-27-2023 Orders Only [id number] RejiJackie Omer 1975 F Date Provider Department Center 07/27/2023 JOEY OLIVIER [facility] Nila Heal Family History Problem Relation Age of Onset No Known Problems Father Family Status - Relation Status Age at Mother Notes: cancer brast ca, ovarian, skin, heart disease Father Normal [facility] DRUG SCREEN, UR-RFLEX CONFIR 07-14-2023 ALCOHOL, UR. Negative Normal (< 10 - Cutof) [facility] Comment on above: Order Comment: FACIL ITY: [facility] [id number] Performed By: #### D S-M+ #### [facility] [address] [facility], [address] AMPHETAMINES, UR. Negative Normal (< 500 - [facility] Comment on above: Order Comment: FACIL ITY: [facility] [id number] Performed By: #### D S-M+ #### [facility] [address] [facility], [address] BARBITURATES, UR. Negative Normal (< 300 - [facility] Comment on above: Order Comment: FACIL ITY: [facility] [id number] Performed By: #### D S-M+ #### [facility] [address] [facility], [address] BENZODIAZEPINES, UR. Negative Normal (< 100 - [facility] Comment on above: Order Comment: FACIL ITY: [facility] [id number] Performed By: #### D S-M+ #### [facility] [address] [facility], [address] COCAINE METAB. UR. Negative Normal (< 150 - [facility] Comment on above: Order Comment: FACIL ITY: [facility] [id number] Performed By: #### D S-M+ #### [facility] [address] [place], [address] CREAT, URINE 35.91 MG/DL Normal (20.00 - 320.0) [facility]: Order Comment: [facility] [id number] Performed By: #### D S-M+ #### [facility] [address] [place], [address] FENTANYL, UR SCREEN Positive High (< 1.0 - [facility] Comment on above: Order Comment: [facility] [id number] Result Comment: FENT ANYL URINE SCREEN = POSITIVE Specimen sent for confirmation testing forfentanyl - [facility] test # [id number] Performed By: #### D S-M+ #### [place] [facility] [address] [place], [address] HEROIN METAB. UR. Negative Normal (< 10 - [facility] Comment on above: Order Comment: [facility] [id number] Performed By: #### D S-M+ #### [place] [facility] [address] [place], [address] METHADONE METAB. UR. Negative Normal (< 100 - [facility] Comment on above: Order Comment: FACIL ITY: [facility] [id number] Performed By: #### D S-M+ #### [facility] [address] [place], [address] OPIATES, UR. Negative Normal (< 100 - [facility] Comment on above: Order Comment: FACIL ITY: [facility] [id number] Performed By: #### D S-M+ #### [facility] [address] [place], [address] OXYCODONE, UR. Negative Normal (< 100 - [facility] Comment on above: Order Comment: [facility] [id number] Performed By: #### D S-M+ #### [facility] [address] [place], [address] pH (U) 5.0 [pH] Normal (5.0 - 9.0) [facility] Comment on above: Order Comment: [facility] [id number] Performed By: #### D S-M+ #### [facility] [address] [place], [address] PHENCYCLIDINE, UR. Negative Normal (< 25 - [facility]) [facility] Comment on above: Order Comment: [facility] [id number] Performed By: #### D S-M+ #### [place] [facility] [address] [place], [address] THC METABOLITE, UR. Positive High (< 20 - [facility]) [facility] Comment on above: Order Comment: FACIL ITY: [facility] [id number] Result Comment: THC METABOLITE URINE SCREEN = POSITIVE Specimen sent for confirmation testing for THC - [facility] test # [id number] Performed By: #### D S-M+ #### [place] [facility] [address] [place], [address] TRAMADOL, UR SCREEN Negative Normal (< 200 - [facility] Comment on above: Order Comment: FACIL ITY: [facility] [id number] Result Comment: This drug testing is for medical treatment only. Analysis was performed as non-forensic testing and the results should be used only by healthcare providers to render diagnosis or treatment, or to monitor the progress of medical conditions. Performed By: #### D S-M+ #### [facility] [address] [place], [address] Follow-Upon 04-27-2023 Follow-Up [id number] Jackie Mendoza 1975 F Date Provider Department Center 04/27/2023 [facility] Nila Heal Family History Problem Relation Age of Onset No Known Problems Father Family Status - Relation Status Age at Mother Notes: cancer brast ca, ovarian, skin, heart disease Father Level of Service:02842 [place] OFFICE/OUTPATIENT ESTABLISHED MOD MDM 30-39 MIN (GC) Reason for Visit and Comments: Follow-up [184237] Normal [facility] DRUG SCREEN, UR-RFLEX CONFIR 04-09-2023 ALCOHOL, UR. Negative Normal (< 10 - [facility] Comment on above: Order Comment: FACIL ITY: [facility] [id number] Performed By: #### D S-M+ #### [facility] [address] [facility], [address] AMPHETAMINES, UR. Negative Normal (< 500 - [facility]) [facility] Comment on above: Order Comment: FACIL ITY: [facility] [id number] Performed By: #### D S-M+ #### [facility] [address] [facility], [address] BARBITURATES, UR. Negative Normal (< 300 - [facility] Comment on above: Order Comment: FACIL ITY: [facility] [id number] Performed By: #### D S-M+ #### [facility] [address] [facility], [address] BENZODIAZEPINES, UR. Negative Normal (< 100 - [facility] Comment on above: Order Comment: FACIL ITY: [facility] [id number] Performed By: #### D S-M+ #### [facility] [address] [facility], [address] COCAINE METAB. UR. Negative Normal (< 150 - [facility]) [facility] Comment on above: Order Comment: FACIL ITY: [facility] [id number] Performed By: #### D S-M+ #### [facility] [address] [place], [address] CREAT, URINE 27.04 MG/DL Normal (20.00 - 320.0) [facility] Comment on above: Order Comment: FACIL ITY: [facility] [id number] Performed By: #### Ari S-M+ #### [facility] [address] [place], [address] FENTANYL, UR SCREEN Negative Normal (< 1.0 - [facility]) [facility] Comment on above: Order Comment: FACIL ITY: [facility] [id number] Performed By: #### Ari S-M+ #### [facility] [address] [place], [address] HEROIN METAB. UR. Negative Normal (< 10 - [facility]) [facility] Comment on above: Order Comment: FACIL ITY: [facility] [id number] Performed By: #### Ari S-M+ #### [facility] [address] [place], [address] METHADONE METAB. UR. Negative Normal (< 100 - [facility]) [facility] Comment on above: Order Comment: FACIL ITY: [facility] [id number] Performed By: #### Ari S-M+ #### [facility] [address] [place], [address] OPIATES, UR. Negative Normal (< 100 - [facility]) [facility] Comment on above: Order Comment: FACIL ITY: [facility] [id number] Performed By: #### D S-M+ #### [facility] [address] [place], [address] OXYCODONE, UR. Negative Normal (< 100 - [facility]) [facility] Comment on above: Order Comment: FACIL ITY: [facility] [id number] Performed By: #### D S-M+ #### [facility] [address] [place], [address] pH (U) 7.0 [pH] Normal (5.0 - 9.0) [facility] Comment on above: Order Comment: FACIL ITY: [facility] [id number] Performed By: #### D S-M+ #### [facility] [address] [place], [address] PHENCYCLIDINE, UR. Negative Normal (< 25 - [facility]) [facility] Comment on above: Order Comment: FACIL ITY: [facility] [id number] Performed By: #### D S-M+ #### [place] [facility] [address] [place], [address] THC METABOLITE, UR. Positive High (< 20 - [facility]) [facility] Comment on above: Order Comment: FACIL ITY: [facility] [id number] Result Comment: THC METABOLITE URINE SCREEN = POSITIVE Specimen sent for confirmation testing for THC - [facility] test # [id number] Performed By: #### D S-M+ #### [place] [facility] [address] [place], [address] TRAMADOL, UR SCREEN Negative Normal (< 200 - [facility]) [facility] Comment on above: Order Comment: FACIL ITY: [facility] [id number] Result Comment: This drug testing is for medical treatment only. Analysis was performed as non-forensic testing and the results should be used only by healthcare providers to render diagnosis or treatment, or to monitor the progress of medical conditions. Performed By: #### D S-M+ #### [place] [facility] [address] [place], [address] CBCon 03-05-2023 Erythrocyte distribution width (RBC) [Ratio] 15.0 % High 11.8-14.4 [facility] Comment on above: Performed By: #### C BC #### [facility] [address] [facility] [place] [address] Front Desk Host: Harjit Flores MD Hematocrit (Bld) [Volume fraction] 39.9 % Normal 36.3-47.1 [facility] Comment on above: Performed By: #### C BC #### [facility] [place] [address] Front Desk Host: Harjit Flores MD Hemoglobin (Bld) [Mass/Vol] 13.2 g/dL Normal 11.9-15.1 [facility] Comment on above: Performed By: #### C BC #### [facility] [address] [place] [address]. [place] [address] Front Desk Host: Harjit Flores MD MCH (RBC) [Entitic mass] 29.9 pg Normal 25.2-33.5 [facility] Comment on above: Performed By: #### C BC #### [facility] [address] [place] [address]. [place] [address] Front Desk Host: Harjit Flores MD MCHC (RBC) [Mass/Vol] 33.1 g/dL Normal 28.4-34.8 [facility] Comment on above: Performed By: #### C BC #### [facility] [address] [place] [address]. [place] [address] Front Desk Host: Harjit Flores MD MCV (RBC) [Entitic vol] 90.3 fL Normal 82.6-102.9 [facility] Comment on above: Performed By: #### C BC #### [facility] [address] [place] [address]. [place] [address] Front Desk Host: Harjit Flores MD NRBC Automated 0.0 per 100 WBC Normal 0.0 [facility] Comment on above: Performed By: #### C BC #### [facility] [address] [place] [address] Front Desk Host: Harjit Flores MD Platelet mean volume (Bld) [Entitic vol] 10.4 fL Normal 8.1-13.5 [facility] Comment on above: Performed By: #### C BC #### [facility] [address] [facility] [place] [address] Front Desk Host: Harjit Flores MD Platelets (Bld) [#/Vol] 209 10*3/uL Normal 138-453 [facility] Comment on above: Performed By: #### C BC #### [facility] [place] [address] Front Desk Host: Harjit Flores MD RBC (Bld) [#/Vol] 4.42 10*6/uL Normal 3.95-5.11 [facility] Comment on above: Performed By: #### C BC #### [facility] [place] [address] Front Desk Host: Harjit Flores MD WBC (Bld) [#/Vol] 7.1 10*3/uL Normal 3.5-11.3 [facility] Comment on above: Performed By: #### C BC #### [facility] [place] [address] Front Desk Host: Harjit Flores MD Erythrocyte distribution width (RBC) [Ratio] 15.0 % High 11.8 - 14.4 % [facility] Hematocrit (Bld) [Volume fraction] 39.9 % 36.3 - 47.1 % [facility] Hemoglobin (Bld) [Mass/Vol] 13.2 g/dL 11.9 - 15.1 g/dL [facility] Interpretation and review of laboratory results Abnormal [facility] MCH (RBC) [Entitic mass] 29.9 pg 25.2 - 33.5 pg [facility] MCHC (RBC) [Mass/Vol] 33.1 g/dL 28.4 - 34.8 g/dL [facility] MCV (RBC) [Entitic vol] 90.3 fL 82.6 - 102.9 fL [facility] Nucleated RBC/100 WBC (Bld) [Ratio] 0.0 % 0.0 per 100 WBC [facility] Platelet mean volume (Bld) [Entitic vol] 10.4 fL 8.1 - 13.5 fL [facility] Platelets (Bld) [#/Vol] 209 10*3/uL [facility] RBC (Bld) [#/Vol] 4.42 10*6/uL 3.95 - 5.1 1 m/uL [facility] WBC other (Bld) [#/Vol] 7.1 [facility] POCT urine pregnancyon 03-05 Beta HCG ( test) Ql (U) Negative NEGATIVE [facility] Comment on above: Specimens with hCG l evels near the threshold of the test (25 mIU/mL) may give a negative or indeterminate result. In such cases, another test should be performed with a new specimen in 48-72 hours. If early is suspected clinically in this setting, correlation with quantitative serum b-hCG level is suggested. [facility] Basic Metabolic Profon 02-19 Anion gap [Moles/Vol] 10 mmol/L Normal - [facility] Comment on above: Performed By: #### G LYHGB #### [facility] [employer] [address] [place] [address] Front Desk Host: Saw Elizondo MD #### BMP #### [facility] [address] [place], [place] [id number] Front Desk Host: Harjit Flores MD BUN/CRE Ratio 14 Normal - [facility] Comment on above: Performed By: #### G LYHGB #### [facility] [employer] [address] [place] [address] Front Desk Host: Saw Elizondo MD #### BMP #### [facility] [address] [place] [address] Front Desk Host: Harjit Flores MD Calcium [Mass/Vol] 9.3 mg/dL Normal 8.6-10.4 [facility] Comment on above: Performed By: #### G LYHGB #### [address] [address] Front Desk Host: Saw Elizondo MD #### BMP #### [facility] [address] [place] [address] Front Desk Host: Harjit Flores MD Chloride [Moles/Vol] 103 mmol/L Normal 98-107 [facility] Comment on above: Performed By: #### G LYHGB #### [address] [address] Front Desk Host: Saw Elizondo MD #### BMP #### [facility] [address] [place] [address] Front Desk Host: Harjit Flores MD CO2 [Moles/Vol] 24 mmol/L Normal 20-31 [facility] Comment on above: Performed By: #### G LYHGB #### [address] [address] Front Desk Host: Saw Elizondo MD #### BMP #### [facility] [address] [place] [address] Front Desk Host: Harjit Flores MD Creatinine [Mass/Vol] 0.8 mg/dL Normal 0.5-0.9 [facility] Comment on above: Performed By: #### G LYHGB #### [address] [address] Front Desk Host: Saw Elizondo MD #### BMP #### [facility] [address] [place], [place] [id number] Front Desk Host: Harjit Flores MD GFR/1.73 sq M.predicted among non-blacks MDRD (S/P/Bld) [Vol rate/Area] mL/min/{1.73_m2} Normal >60 [facility] Comment on above: Result Comment: These results [...] secretion. Performed By: #### G LYHGB #### [address] [id number] Front Desk Host: Saw Elizondo MD #### BMP #### [facility] [address] [place], [place] [id number] Front Desk Host: Harjit Flores MD Glucose [Mass/Vol] 126 mg/dL High 70-99 [facility] Comment on above: Performed By: #### G LYHGB #### [address] [id number] Front Desk Host: Saw Elizondo MD #### BMP #### [facility] [address] [place] [address] Front Desk Host: Harjit Flores MD Potassium [Moles/Vol] 4.0 mmol/L Normal 3.7-5.3 [facility] Comment on above: Performed By: #### G LYHGB #### [address] [address] Front Desk Host: Saw Elizondo MD #### BMP #### [facility] [address] [place] [address] Front Desk Host: Harjit Flores MD Sodium [Moles/Vol] 137 mmol/L Normal 135-144 [facility] Comment on above: Performed By: #### G LYHGB #### [address] [address] Front Desk Host: Saw Elizondo MD #### BMP #### [facility] [address] [place] [address] Front Desk Host: Harjit Flores MD Urea nitrogen [Mass/Vol] 11 mg/dL Normal 6-20 [facility] Comment on above: Performed By: #### G LYHGB #### [address] [address] Front Desk Host: Saw Elizondo MD #### BMP #### [facility] [address] [place] [address] Front Desk Host: Harjit Flores MD [facility] 02-19-2023 Erythrocyte distribution width (RBC) [Ratio] 15.0 % High 11.8-14.4 [facility] Comment on above: Performed By: #### C BC #### [facility] [address] [place] [address] Front Desk Host: Harjit Flores MD Hematocrit (Bld) [Volume fraction] 40.2 % Normal 36.3-47.1 [facility] Comment on above: Performed By: #### C BC #### [facility] [address] [place] [address] Front Desk Host: Harjit Flores MD Hemoglobin (Bld) [Mass/Vol] 13.3 g/dL Normal 11.9-15.1 [facility] Comment on above: Performed By: #### C BC #### [facility] [address] [facility] [place] [address] Front Desk Host: Harjit Flores MD MCH (RBC) [Entitic mass] 29.6 pg Normal 25.2-33.5 [facility] Comment on above: Performed By: #### C BC #### [facility] [place] [address] Front Desk Host: Harjit Flores MD MCHC (RBC) [Mass/Vol] 33.1 g/dL Normal 28.4-34.8 [facility] Comment on above: Performed By: #### C BC #### [facility] [place] [address] Front Desk Host: Harjit Flores MD MCV (RBC) [Entitic vol] 89.3 fL Normal 82.6-102.9 [facility] Comment on above: Performed By: #### C BC #### [facility] [place] [address] Front Desk Host: Harjit Flores MD NRBC Automated 0.0 per 100 WBC Normal 0.0 [facility] Comment on above: Performed By: #### C BC #### [facility] [address] [place] [address]. [place] [address] Front Desk Host: Harjit Flores MD Platelet mean volume (Bld) [Entitic vol] 9.9 fL Normal 8.1-13.5 [facility] Comment on above: Performed By: #### C BC #### [facility] [place] [address] Front Desk Host: Harjit Flores MD Platelets (Bld) [#/Vol] 237 10*3/uL Normal 138-453 [facility] Comment on above: Performed By: #### C BC #### [facility] [address] [facility] [place] [address] Front Desk Host: Harjit Flores MD RBC (Bld) [#/Vol] 4.50 10*6/uL Normal 3.95-5.11 [facility] Comment on above: Performed By: #### C BC #### [facility] [address] [facility] [place] [address] Front Desk Host: Harjit Flores MD WBC (Bld) [#/Vol] 9.6 10*3/uL Normal 3.5-11.3 [facility] Comment on above: Performed By: #### C BC #### [facility] [address] [facility] [place] [address] Front Desk Host: Harjit Flores MD Hemoglobin A1Con 02-19-2023 Glucose [Mass/Vol] 123 mg/dL Normal [facility] Comment on above: Result Comment: The ADA and AACC recommend providing the estimated average glucose result to permit better patient understanding of their HBA1c result. Performed By: #### G LYHGB #### [address] [address] Front Desk Host: Saw Elizondo MD #### BMP #### [facility] [address] [place] [address] Front Desk Host: Harjit Flores MD HbA1c (Bld) [Mass fraction] 5.9 % Normal 4.0-6.0 [facility] Comment on above: Performed By: #### G LYHGB #### [address] [address] Front Desk Host: Saw Elizondo MD #### BMP #### [facility] [address] [facility] [place] [address] Front Desk Host: Harjit Flores MD Follow-Upon 01-12-2023 Follow-Up [id number] Jackie Mendoza 1975 F Date Provider Department Center 01/12/2023 [facility]HEUM Nila Heal Family History Problem Relation Age of Onset No Known Problems Father Family Status - Relation Status Age at Mother Notes: cancer brast ca, ovarian, skin, heart disease Father Level of Service:62585 [place] OFFICE/OUTPATIENT ESTABLISHED MOD MDM 30-39 MIN Reason for Visit and Comments: Follow-up [106703] Normal [facility] DRUG SCREEN, UR-RFLEX CONFIR 01-06-2023 ALCOHOL, UR. Negative Normal (< 10 - [facility]) [facility] Comment on above: Order Comment: FACIL ITY: [facility] [id number] Performed By: #### D S-M+ #### [facility] [address] [facility], [address] AMPHETAMINES, UR. Negative Normal (< 500 - [facility]) [facility] Comment on above: Order Comment: FACIL ITY: [facility] [id number] Performed By: #### D S-M+ #### [facility] [address] [facility], [address] BARBITURATES, UR. Negative Normal (< 300 - [facility]) [facility] Comment on above: Order Comment: FACIL ITY: [facility] [id number] Performed By: #### D S-M+ #### [facility] [address] [facility], [address] BENZODIAZEPINES, UR. Positive High (< 100 - [facility]) [facility] Comment on above: Order Comment: FACIL ITY: [facility] [id number] Result Comment: AAKASH ODIAZEPINES URINE SCREEN = POSITIVE Specimen sent for confirmation testing for benzodiazepines - [facility] test # [id number] Performed By: #### D S-M+ #### [facility] [address] [facility], [address] COCAINE METAB. UR. Negative Normal (< 150 - [facility]) [facility] Comment on above: Order Comment: FACIL ITY: [facility] [id number] Performed By: #### Ari S-M+ #### [facility] [facility] [address] [place], [address] CREAT, URINE 64.85 MG/DL Normal (20.00 - 320.0) [facility] Comment on above: Order Comment: FACIL ITY: [facility] [id number] Performed By: #### D S-M+ #### [facility] [facility] [address] [place], [address] FENTANYL, UR SCREEN Negative Normal (< 1.0 - [facility]) [facility] Comment on above: Order Comment: FACIL ITY: [facility] [id number] Performed By: #### Ari S-M+ #### [facility] [facility] [address] [place], [address] HEROIN METAB. UR. Negative Normal (< 10 - [facility]) [facility] Comment on above: Order Comment: FACIL ITY: [facility] [id number] Performed By: #### D S-M+ #### [facility] [facility] [address] [place], [address] METHADONE METAB. UR. Negative Normal (< 100 - [facility]) [facility] Comment on above: Order Comment: FACIL ITY: [facility] [id number] Performed By: #### D S-M+ #### [facility] [facility] [address] [place], [address] OPIATES, UR. Negative Normal (< 100 - [facility]) [facility] Comment on above: Order Comment: FACIL ITY: [facility] [id number] Performed By: #### D S-M+ #### [facility] [facility] [address] [place], [address] OXYCODONE, UR. Negative Normal (< 100 - [facility]) [facility] Comment on above: Order Comment: [facility] [id number] Performed By: #### D S-M+ #### [facility] [facility] [address] [place], [address] pH (U) 5.5 [pH] Normal (5.0 - 9.0) [facility] Comment on above: Order Comment: FACIL ITY: [facility] [id number] Performed By: #### D S-M+ #### [facility] [address] [place], [address] PHENCYCLIDINE, UR. Negative Normal (< 25 - Cutof) [facility] Comment on above: Order Comment: FACIL ITY: [facility] [id number] Performed By: #### D S-M+ #### [place] [facility] [address] [facility], [address] THC METABOLITE, UR. Positive High (< 20 - Cutof) [facility] Comment on above: Order Comment: FACIL ITY: [facility] [id number] Result Comment: THC METABOLITE URINE SCREEN = POSITIVE Specimen sent for confirmation testing for THC - [facility] test # [id number] Performed By: #### D S-M+ #### [place] [facility] [address] [place], [address] TRAMADOL, UR SCREEN Negative Normal (< 200 - Cutof) [facility] Comment on above: Order Comment: FACIL ITY: [facility] [id number] Result Comment: This drug testing is for medical treatment only. Analysis was performed as non-forensic testing and the results should be used only by healthcare providers to render diagnosis or treatment, or to monitor the progress of medical conditions. Performed By: #### D S-M+ #### [place] [facility] [address] [place], [address] GLYCOHEMOGLOBIN A1Con 2022 ADA RECOMMENDATION SEE BELOW Normal [facility] Comment on above: Result Comment: ADA RECOMMENDED LIMIT 4.0 - 6.0 ADA THERAPEUTIC TARGET < 7.0 ACTION SUGGESTED > 7.0 Performed By: #### D ATA1C #### [facility] [address] [address] [address] Brock Elias Glucose [Mass/Vol] 128 mg/dL Normal [facility] Comment on above: Performed By: #### D ATA1C #### [facility] [address] [address] [address] Brock Elias HbA1c (Bld) [Mass fraction] 6.1 % Normal 4.5-6.2 [facility] Comment on above: Performed By: #### D ATA1C #### [facility] [address] [address] [address] Brcok Elias C-REACTIVE PROTEINon 023 C REACTIVE PROTEIN (MG/L) IN SER/PLAS 7.5 mg/L High 0.0-7.0 [facility] Comment on above: Performed By: #### L [id number] #### [facility] ([facility]) [address] [place] [address] CBC WITH AUTO DIFFERENTIALon 10-27-2022 Basophils (Bld) [#/Vol] 0.05 10*3/uL Normal 0.00-0.20 [facility] Comment on above: Performed By: #### L [id number] ####[facility] ([facility])[address] [place] [address] Basophils/100 WBC (Bld) 0.6 % Normal 0.0-1.0 [facility] Comment on above: Performed By: #### L [id number] ####[facility] ([facility])[address] [place] [address] Eosinophils (Bld) [#/Vol] 0.14 10*3/uL Normal 0.00-0.50 [facility] Comment on above: Performed By: #### L [id number] ####[facility] (BEAK[facility])[address] [place] [address] Eosinophils/100 WBC (Bld) 1.7 % Normal 0.0-6.0 [facility] Comment on above: Performed By: #### L [id number] ####[facility] [place] [address] Erythrocyte distribution width (RBC) [Ratio] 15.1 % High 11.5-15.0 [facility] Comment on above: Performed By: #### L [id number] ####[facility] [place] [address] ERYTHROCYTE MEAN CORPUSCULAR HEMOGLOBIN CONCENTRATION (G/DL) BY AUTOMATED 33.3 g/dL Normal 32.0-35.0 [facility] Comment on above: Performed By: #### L [id number] ####[facility] [place] [address] Hematocrit (Bld) [Volume fraction] 42.7 % Normal 36.0-48.0 [facility] Comment on above: Performed By: #### L [id number] ####[facility] ([facility])[address] [place] [address] Hemoglobin (Bld) [Mass/Vol] 14.2 g/dL Normal 12.0-15.0 [facility] Comment on above: Performed By: #### L [id number] ####[facility] [place] [address] Immature granulocytes (Bld) [#/Vol] 0.02 10*3/uL Normal 0.00-0.20 [facility] Comment on above: Performed By: #### L [id number] ####[facility] ([facility])[address] [place] [address] Immature granulocytes/100 WBC (Bld) 0.2 % Normal 0.0-1.0 [facility] Comment on above: Performed By: #### L [id number] ####[facility] ([facility])[address] [place] [address] Lymphocytes (Bld) [#/Vol] 2.07 10*3/uL Normal 1.20-4.00 [facility] Comment on above: Performed By: #### L [id number] ####[facility] ([facility])[address] [place] [address] Lymphocytes/100 WBC (Bld) 24.7 % Normal 20.0-45.0 [facility] Comment on above: Performed By: #### L [id number] ####[facility] ([facility])[address] [place] [address] MCH (RBC) [Entitic mass] 29.1 pg Normal 27.0-33.0 [facility] Comment on above: Performed By: #### L [id number] ####[facility] ([facility])[address] [place] [address] MCV (RBC) [Entitic vol] 87.5 fL Normal 82.0-98.0 [facility] Comment on above: Performed By: #### L [id number] ####[facility] ([facility])[address] [place] [address] Monocytes (Bld) [#/Vol] 0.52 10*3/uL Normal 0.10-1.00 [facility] Comment on above: Performed By: #### L [id number] ####[facility] ([facility])[address] [place] [address] Monocytes/100 WBC (Bld) 6.2 % Normal 5.0-12.0 [facility] Comment on above: Performed By: #### L [id number] ####[facility] ([facility])[address] [place] [address] Neutrophils (Bld) [#/Vol] 5.58 10*3/uL Normal 1.60-7.60 [facility] Comment on above: Performed By: #### L [id number] ####[facility] ([facility])[address] [place] [address] Neutrophils/100 WBC (Bld) 66.6 % Normal 40.0-72.0 [facility] Comment on above: Performed By: #### L [id number] ####[facility] ([facility])[address] [place] [address] NRBC (PER 100 WBCS) BY AUTOMATED COUNT 0.0 % Normal 0 [facility] Comment on above: Performed By: #### L [id number] ####[facility] ([facility])[address] [place] [address] PLATELETS (10*3/UL) IN BLOOD AUTOMATED COUNT 246 10*3/uL Normal 150-400 [facility] Comment on above: Performed By: #### L [id number] ####[facility] ([facility])[address] [place] [address] RBC (Bld) [#/Vol] 4.88 10*6/uL Normal 3.80-5.00 [facility] Comment on above: Performed By: #### L [id number] ####[facility] ([facility])[address] [place] [address] WBC (Bld) [#/Vol] 8.38 10*3/uL Normal 4.00-10.60 [facility] Comment on above: Performed By: #### L [id number] ####[facility] ([facility])[address] [place] [address] Follow-Upon 10-27-2022 Follow-Up [id number] Jackie Mendoza 1975 F Date Provider Department Novi 10/27/2022 [facility] Family History Problem Relation Age of Onset No Known Problems Father Family Status - Relation Status Age at Mother Notes: cancer brast ca, ovarian, skin, heart disease Father Level of Service:37658 [place] OFFICE/OUTPATIENT ESTABLISHED MOD MDM 30-39 MIN () Reason for Visit and Comments: Follow-up [312999] Normal [facility] HEPATIC FUNCTION PANELon Albumin [Mass/Vol] 4.3 g/dL Normal 3.5-5.7 [facility] Comment on above: Performed By: #### L [id number] ####[facility] ([facility])[address] [place] [address] ALP [Catalytic activity/Vol] 78 U/L Normal 34-104 [facility] Comment on above: Performed By: #### L [id number] ####[facility] ([facility])[address] [place] [address] ALT [Catalytic activity/Vol] 15 U/L Normal 7-52 [facility] Comment on above: Performed By: #### L [id number] ####[facility] [place] [address] AST [Catalytic activity/Vol] 14 U/L Normal 13-39 [facility] Comment on above: Performed By: #### L [id number] ####[facility] [place] [address] Bilirubin [Mass/Vol] 0.5 mg/dL Normal 0.3-1.0 [facility] Comment on above: Performed By: #### L [id number] ####[facility] [place] [address] Magnesium [Mass/Vol] 0.1 mg/dL Normal 0-0.2 [facility] Comment on above: Performed By: #### L [id number] ####[facility] ([facility])[address] [place] [address] Protein [Mass/Vol] 7.3 g/dL Normal 6.0-8.3 [facility] Comment on above: Performed By: #### L [id number] ####[facility] ([facility])[address] [place] [address] SEDIMENTATION RATEon 023 SEDIMENTATION RATE, ERYTHROCYTE 5 mm/hr Normal <=20 [facility] Comment on above: Performed By: #### L [id number] #### [facility] ([facility]) [address] [place] [address] DRUG SCREEN, UR-RFLEX CONFIR 10-06-2022 ALCOHOL, UR. Negative Normal (< 10 - Cutof) [place] [facility] Comment on above: Order Comment: FACIL ITY: [facility] [id number] Performed By: #### D S-M+ #### [place] [facility] [address] [place], [address] AMPHETAMINES, UR. Negative Normal (< 500 - Cutof) [place] [facility] Comment on above: Order Comment: FACIL ITY: [facility] [id number] Performed By: #### D S-M+ #### [place] [facility] [address] [place], [address] BARBITURATES, UR. Negative Normal (< 300 - Cutof) [facility] [facility] Comment on above: Order Comment: FACIL ITY: [facility] [id number] Performed By: #### D S-M+ #### [place] [facility] [address] [place], [address] BENZODIAZEPINES, UR. Negative Normal (< 100 - Cutof) [facility] [facility] Comment on above: Order Comment: FACIL ITY: [facility] [id number] Performed By: #### D S-M+ #### [place] [facility] [address] [place], [address] COCAINE METAB. UR. Negative Normal (< 150 - Cutof) [facility] [facility] Comment on above: Order Comment: FACIL ITY: [facility] [id number] Performed By: #### D S-M+ #### [place] [facility] [address] [place], [address] CREAT, URINE 67.78 MG/DL Normal (20.00 - 320.0) [facility] [facility] Comment on above: Order Comment: FACIL ITY: [facility] [id number] Performed By: #### D S-M+ #### [place] [facility] [address] [place], [address] FENTANYL, UR SCREEN Negative Normal (< 1.0 - Cutof) [place] [facility] Comment on above: Order Comment: FACIL ITY: [facility] [id number] Performed By: #### Ari S-M+ #### [place] [facility] [address] [place], [address] HEROIN METAB. UR. Negative Normal (< 10 - Cutof) [facility] Comment on above: Order Comment: FACIL ITY: [facility] [id number] Performed By: #### Ari S-M+ #### [place] [facility] [address] [place], [address] METHADONE METAB. UR. Negative Normal (< 100 - Cutof) [facility] Comment on above: Order Comment: FACIL ITY: [facility] [id number] Performed By: #### Ari S-M+ #### [place] [facility] [address] [place], [address] OPIATES, UR. Negative Normal (< 100 - Cutof) [facility] Comment on above: Order Comment: FACIL ITY: [facility] [id number] Performed By: #### Ari S-M+ #### [place] [facility] [address] [place], [address] OXYCODONE, UR. Negative Normal (< 100 - Cutof) [facility] Comment on above: Order Comment: FACIL ITY: [facility] [id number] Performed By: #### Ari S-M+ #### [place] [facility] [address] [place], [address] pH (U) 6.0 [pH] Normal (5.0 - 9.0) [place] [facility] Comment on above: Order Comment: FACIL ITY: [facility] [id number] Performed By: #### Ari S-M+ #### [place] [facility] [address] [place], [address] PHENCYCLIDINE, UR. Negative Normal (< 25 - Cutof) [facility] Comment on above: Order Comment: FACIL ITY: [facility] [id number] Performed By: #### D S-M+ #### [place] [facility] [address] [facility], [address] THC METABOLITE, UR. Positive High (< 20 - Cutof) [facility] Comment on above: Order Comment: FACIL ITY: [facility] [id number] Result Comment: THC METABOLITE URINE SCREEN = POSITIVE Specimen sent for confirmation testing for THC - [facility] test # [id number] Performed By: #### D S-M+ #### [facility] [address] [facility], [address] TRAMADOL, UR SCREEN Negative Normal (< 200 - Cutof) [facility] Comment on above: Order Comment: FACIL ITY: [facility] [id number] Result Comment: This drug testing is for medical treatment only. Analysis was performed as non-forensic testing and the results should be used only by healthcare providers to render diagnosis or treatment, or to monitor the progress of medical conditions. Performed By: #### D S-M+ #### [facility] [address] [facility], [address] [place] ALISA DOP LEG RTon 09-16-19 23 [...] WILFRIDO FORD Date: 2022-09-15 09:06 Normal [facility] CBC AUTO DIFFon 09-14-2022 BASO # 0.0 103/ul Normal 0.0-0.1 [facility] Comment on above: Performed By: #### C BC #### [facility] [address] [place] [address] Dr. Brock Elias Basophils/100 WBC (Bld) 0.4 % Normal 0.2-2.0 [facility] Comment on above: Performed By: #### C BC #### [facility] [address] [place] [address] Dr. Brock Elias EO # 0.2 103/ul Normal 0.0-0.7 [facility] Comment on above: Performed By: #### C BC #### [facility] [address] [place] [address] Dr. Brock Elias Eosinophils/100 WBC (Bld) 2.1 % Normal 0.9-7.0 [facility] Comment on above: Performed By: #### C BC #### [facility] [address] [place] [address] Dr. Brock Elias Erythrocyte distribution width (RBC) [Ratio] 15.2 % Critically high 11.0-15.0 [facility] Comment on above: Performed By: #### C BC #### [facility] [address] [place] [address] Dr. Brock Elias Hematocrit (Bld) [Volume fraction] 40.0 % Normal 36.0-48.0 [facility] Comment on above: Performed By: #### C BC #### [facility] [address] [place] [address] Dr. Brock Elias Hemoglobin (Bld) [Mass/Vol] 13.4 g/dL Normal 12.0-16.0 [facility] Comment on above: Performed By: #### C BC #### [facility] [address] [place] [address] Dr. Brock Elias IG # 0.02 10e3/ul Normal 0.00-0.03 [facility] Comment on above: Performed By: #### C BC #### [facility] [address] [place] [address] Dr. Brock Elias IG % 0.3 % Normal 0.0-0.5 [facility] Comment on above: Performed By: #### C BC #### [facility] [address] [place] [address] Dr. Brock Elias LYMPH # 1.9 103/ul Normal 1.2-3.8 [facility] Comment on above: Performed By: #### C BC #### [facility] [address] [place] [address] Dr. Brock Elias Lymphocytes/100 WBC (Bld) 26.7 % Normal 20.5-60.0 [facility] Comment on above: Performed By: #### C BC #### [facility] [address] [place] [address] Dr. Brock Elias MANUAL DIFF REQ NO Normal [facility] Comment on above: Performed By: #### C BC #### [facility] [address] [place] [address] Dr. Brock Elias MCH (RBC) [Entitic mass] 28.6 pg Normal 26.7-34.0 [facility] Comment on above: Performed By: #### C BC #### [facility] [address] [place] [address] Dr. Brock Elias MCHC (RBC) [Mass/Vol] 33.5 g/dL Normal 29.9-35.2 [facility] Comment on above: Performed By: #### C BC #### [facility] [address] [place] [address] Dr. Brock Elias MCV (RBC) [Entitic vol] 85.5 fL Normal 81.0-99.0 [facility] Comment on above: Performed By: #### C BC #### [facility] [address] [place] [address] Dr. Brock Elias MONO # 0.4 103/ul Normal 0.3-0.8 [facility] Comment on above: Performed By: #### C BC #### [facility] [address] [place] [address] Dr. Brock Elias Monocytes/100 WBC (Bld) 5.3 % Normal 1.7-12.0 [facility] Comment on above: Performed By: #### C BC #### [facility] [address] [address] [address] Brock Elias NEUT # 4.6 103/ul Normal 1.4-6.5 [facility] Comment on above: Performed By: #### C BC #### [facility] [address] [place] [address] Dr. Brock Elias Neutrophils/100 WBC (Bld) 65.2 % Normal 43.0-75.0 [facility] Comment on above: Performed By: #### C BC #### [facility] [address] [place] [address] Dr. Brock Elias Platelet mean volume (Bld) [Entitic vol] 9.9 fL Normal 9.5-13.5 [facility] Comment on above: Performed By: #### C BC #### [facility] [address] [place] [address] Dr. Brock Elias PLT 225 103/ul Normal 150-450 [facility] Comment on above: Performed By: #### C BC #### [facility] [address] [place] [address] Dr. Brock Elias RBC 4.68 106/ul Normal 4.20-5.40 [facility] Comment on above: Performed By: #### C BC #### [facility] [address] [place] [address] Dr. Brock Elias WBC 7.0 103/ul Normal 4.0-11.0 [facility] Comment on above: Performed By: #### C BC #### [facility] [address] [place] [address] Dr. Brock Elias D-DIMERon 09-14-2022 D-DIMER 2.02 mg/L FEU Critically high <=0.59 [facility] Comment on above: Performed By: #### H IV12 #### [facility] [address] [place] [address] Dr. Brock Elias D-DIMER COMMENTS SEE BELOW Normal [facility] Comment on above: Result Comment: Incr [...] hospitalization. Performed By: #### H IV12 #### [facility] [address] [place] [address] Dr. Brock Elias LACTATE/LACTIC ACIDon 2022 Lactate [Moles/Vol] 0.9 mmol/L Normal 0.4-2.0 [facility] Comment on above: Performed By: #### L ACT #### [facility] [address] [place] [address] Dr. Brock Elias PROF CHEM 8 (BAS METB)on Anion gap [Moles/Vol] 8.7 mmol/L Normal [facility] Comment on above: Performed By: #### B MP #### [facility] [address] [place] [address] Dr. Brock Elias Calcium [Mass/Vol] 8.9 mg/dL Normal 8.5-10.1 [facility] Comment on above: Performed By: #### B MP #### [facility] [address] [place] [address] Dr. Brock Elias Chloride [Moles/Vol] 105 mmol/L Normal 98-107 [facility] Comment on above: Performed By: #### B MP #### [facility] [address] [place] [address] Dr. Brock Elias CO2 [Moles/Vol] 29.3 mmol/L Normal 21.0-32.0 [facility] Comment on above: Performed By: #### B MP #### [facility] [address] [place] [address] Dr. Brock Elias Creatinine [Mass/Vol] 0.81 mg/dL Normal 0.55-1.02 [facility] Comment on above: Performed By: #### B MP #### [facility] [address] [place] [address] Dr. Brock Elias EGFR-AF GHANAIAN >60 Normal >=60 [facility] Comment on above: Performed By: #### B MP #### [facility] [address] [address] [address] Brock Elias EGFR-NON AF GHANAIAN >60 Normal >=60 [facility] Comment on above: Performed By: #### B MP #### [facility] [address] [address] [address] Brock Elias Glucose [Mass/Vol] 106 mg/dL Normal 74-106 [facility] Comment on above: Performed By: #### B MP #### [facility] [address] [address] [address] Brock Elias Potassium [Moles/Vol] 4.0 mmol/L Normal 3.5-5.1 [facility] Comment on above: Performed By: #### B MP #### [facility] [address] [address] [address] Brock Elias Sodium [Moles/Vol] 139 mmol/L Normal 136-145 [facility] Comment on above: Performed By: #### B MP #### [facility] [address] [address] [address] Brock Elias Urea nitrogen [Mass/Vol] 11.0 mg/dL Normal 7.0-18.0 [facility] Comment on above: Performed By: #### B MP #### [facility] [address] [address] [address] Brock Elias Urea nitrogen/Creatinine [Mass ratio] 13.6 mg/mg Normal [facility] Comment on above: Performed By: #### B MP #### [facility] [address] [address] [address] Brock Elias Office Visiton 09-12-2022 Follow-up visit [id number] Jackie Mendoza 1975 F Date Provider Department Center 09/12/2022 [facility] Family History Problem Relation Age of Onset No Known Problems Father Family Status - Relation Status Age at Mother Notes: cancer brast ca, ovarian, skin, heart disease Father Level of Service:21245 [place] OFFICE/OUTPATIENT ESTABLISHED MOD MDM 30-39 MIN (GC) Reason for Visit and Comments: New Patient [632] - New Pt, possible fibromyalgia Normal [facility] HIV 1 AND 2 WITH REFLEXon HIV Screen 4th Generation wRfx Non-Reactive Normal Non Reactive [facility] Comment on above: Result Comment: HIV Negative HIV-1/HIV-2 antibodies and HIV-1 p24 antigen were NOT detected. There is no laboratory evidence of HIV infection. Performed By: #### H IV12 #### [facility] [address] [address] [address] Brock Elias XR ELBOW MARTHA MIN [...] MORENO Date: 2022-08-13 10:47 Normal [facility] XR HAND MARTHA MIN 3Von 023 XR [...] MORENO Date: 2022-08-13 10:45 Normal [facility] XR KNEE MARTHA 3 Von 08-12-2022 XR [...] MELISSA GATES Date: 2022-08-12 17:40 Normal [facility] XR WRIST MARTHA MIN 3 Von 08-12 [...] MELISSA GATES Date: 2022-08-12 17:26 Normal [facility] LUCINDA EIA W/REFLEX 9 BIOMARKER Son 07-23-2022 LUCINDA Direct Negative Normal Negative [facility] Comment on above: Performed By: #### H IV12 #### [facility] [address] [place] [address] Dr. Brock Elias C-REACTIVE PROTEINS (HS)on 0 07-23-2022 C-Reactive Protein, Cardiac 4.28 mg/L Critically high 0.00-3.00 [facility] Comment on above: Result Comment: Rela tive Risk for Future Cardiovascular Event Low <1.00 Average 1.00 - 3.00 High >3.00 Performed By: #### C RPHS #### [facility] [address] [place] [address] Dr. Brock Elias CYCLIC CITRULLINATED PEPTIDE AB (CCP)on 07-23-2022 CCP Antibodies IgG/IgA 6 units Normal 0-19 [facility] Comment on above: Result Comment: Nega tive <20 Weak positive 20 - 39 Moderate positive 40 - 59 Strong positive >59 Performed By: #### R F #### [facility] [address] [place] [address] Dr. Brock Elias RHEUMATOID FACTORon 07-23-19 23 RA Latex Turbid. <10.0 Normal <14.0 [facility] Comment on above: Performed By: #### R F #### [facility] [address] [place] [address] Dr. Brock Elias GLYCOHEMOGLOBIN A1Con 2022 ADA RECOMMENDATION SEE BELOW Normal [facility] Comment on above: Result Comment: ADA RECOMMENDED LIMIT 4.0 - 6.0 ADA THERAPEUTIC TARGET < 7.0 ACTION SUGGESTED > 7.0 Performed By: #### C MP #### [facility] [address] [place] [address] Dr. Brock Elias Glucose [Mass/Vol] 126 mg/dL Normal [facility] Comment on above: Performed By: #### C MP #### [facility] [address] [place] [address] Dr. Brock Elias HbA1c (Bld) [Mass fraction] 6.0 % Normal 4.5-6.2 [facility] Comment on above: Performed By: #### C MP #### [facility] [address] [place] [address] Dr. Brock Elias PROF 14(COMP METB)on 023 Albumin [Mass/Vol] 3.9 g/dL Normal 3.4-5.0 [facility] Comment on above: Performed By: #### C MP #### [facility] [address] [place] [address] Dr. Brock Elias Albumin/Globulin [Mass ratio] 1.1 {ratio} Normal [facility] Comment on above: Performed By: #### C MP #### [facility] [address] [address] [address] Brock Elias ALP [Catalytic activity/Vol] 88 U/L Normal 46-116 [facility] Comment on above: Performed By: #### C MP #### [facility] [address] [address] [address] Brock Elias ALT [Catalytic activity/Vol] 28 U/L Normal 14-59 [facility] Comment on above: Performed By: #### C MP #### [facility] [address] [place] [address] Dr. Brock Elias Anion gap [Moles/Vol] 13.8 mmol/L Normal [facility] Comment on above: Performed By: #### C MP #### [facility] [address] [place] [address] Dr. Brock Elias AST [Catalytic activity/Vol] 31 U/L Normal 15-37 [facility] Comment on above: Performed By: #### C MP #### [facility] [address] [place] [address] Dr. Brock Elias Bilirubin [Mass/Vol] 0.6 mg/dL Normal 0.2-1.0 [facility] Comment on above: Performed By: #### C MP #### [facility] [address] [place] [address] Dr. Brock Elias Calcium [Mass/Vol] 8.9 mg/dL Normal 8.5-10.1 [facility] Comment on above: Performed By: #### C MP #### [facility] [address] [place] [address] Dr. Brock Elias Chloride [Moles/Vol] 104 mmol/L Normal 98-107 [facility] Comment on above: Performed By: #### C MP #### [facility] [address] [place] [address] Dr. Brock Elias CO2 [Moles/Vol] 28.5 mmol/L Normal 21.0-32.0 [facility] Comment on above: Performed By: #### C MP #### [facility] [address] [address] [address] Brock Elias Creatinine [Mass/Vol] 0.76 mg/dL Normal 0.55-1.02 [facility] Comment on above: Performed By: #### C MP #### [facility] [address] [address] [address] Brock Elias EGFR-AF GHANAIAN >60 Normal >=60 [facility] Comment on above: Performed By: #### C MP #### [facility] [address] [address] [address] Brock Elias EGFR-NON AF GHANAIAN >60 Normal >=60 [facility] Comment on above: Performed By: #### C MP #### [facility] [address] [place] [address] Dr. Brock Elias Globulin (S) [Mass/Vol] 3.7 g/dL Normal [facility] Comment on above: Performed By: #### C MP #### [facility] [address] [place] [address] Dr. Brock Elias Glucose [Mass/Vol] 107 mg/dL Critically high 74-106 [facility] Comment on above: Performed By: #### C MP #### [facility] [address] [place] [address] Dr. Brock Elias Potassium [Moles/Vol] 4.3 mmol/L Normal 3.5-5.1 [facility] Comment on above: Performed By: #### C MP #### [facility] [address] [place] [address] Dr. Brock Eilas Protein [Mass/Vol] 7.6 g/dL Normal 6.4-8.2 [facility] Comment on above: Performed By: #### C MP #### [facility] [address] [place] [address] Dr. Brock Elias Sodium [Moles/Vol] 142 mmol/L Normal 136-145 [facility] Comment on above: Performed By: #### C MP #### [facility] [address] [place] [address] Dr. Brock Elias Urea nitrogen [Mass/Vol] 15.0 mg/dL Normal 7.0-18.0 [facility] Comment on above: Performed By: #### C MP #### [facility] [address] [place] [address] Dr. Brock Elias Urea nitrogen/Creatinine [Mass ratio] 19.7 mg/mg Normal [facility] Comment on above: Performed By: #### C MP #### [facility] [address] [place] [address] Dr. Brock Elias [facility] 2022 SED RATE 29 mm/hr Critically high <=20 [facility] Comment on above: Performed By: #### R F #### [facility] [address] [place] [address] Dr. Brock Elias PROF 14(COMP METB)on 023 Albumin [Mass/Vol] 3.6 g/dL Normal 3.4-5.0 [facility] Comment on above: Performed By: #### C MP #### [facility] [address] [place] [address] Dr. Brock Elias Albumin/Globulin [Mass ratio] 1.1 {ratio} Normal [facility] Comment on above: Performed By: #### C MP #### [facility] [address] [place] [address] Dr. Brock Elias ALP [Catalytic activity/Vol] 83 U/L Normal 46-116 [facility] Comment on above: Performed By: #### C MP #### [facility] [address] [place] [address] Dr. Brock Elias ALT [Catalytic activity/Vol] 22 U/L Normal 14-59 [facility] Comment on above: Performed By: #### C MP #### [facility] [address] [place] [address] Dr. Brock Elias Anion gap [Moles/Vol] 12.8 mmol/L Normal [facility] Comment on above: Performed By: #### C MP #### [facility] [address] [place] [address] Dr. Brock Elias AST [Catalytic activity/Vol] 17 U/L Normal 15-37 [facility] Comment on above: Performed By: #### C MP #### [facility] [address] [address] [address] Brock Elias Bilirubin [Mass/Vol] 0.5 mg/dL Normal 0.2-1.0 [facility] Comment on above: Performed By: #### C MP #### [facility] [address] [address] [address] Brock Elias Calcium [Mass/Vol] 8.5 mg/dL Normal 8.5-10.1 [facility] Comment on above: Performed By: #### C MP #### [facility] [address] [place] [address] Dr. Brock Elias Chloride [Moles/Vol] 104 mmol/L Normal 98-107 [facility] Comment on above: Performed By: #### C MP #### [facility] [address] [address] [address] Brock Elias CO2 [Moles/Vol] 26.3 mmol/L Normal 21.0-32.0 [facility] Comment on above: Performed By: #### C MP #### [facility] [address] [place] [address] Dr. Brock Elias Creatinine [Mass/Vol] 0.79 mg/dL Normal 0.55-1.02 [facility] Comment on above: Performed By: #### C MP #### [facility] [address] [address] [address] Brock Elias EGFR-AF GHANAIAN >60 Normal >=60 [facility] Comment on above: Performed By: #### C MP #### [facility] [address] [address] [address] Brock Elias EGFR-NON AF GHANAIAN >60 Normal >=60 [facility] Comment on above: Performed By: #### C MP #### [facility] [address] [place] [address] Dr. Brock Elias Globulin (S) [Mass/Vol] 3.3 g/dL Normal [facility] Comment on above: Performed By: #### C MP #### [facility] [address] [place], [place] [address] Dr. Brock Elias Glucose [Mass/Vol] 153 mg/dL Critically high 74-106 [facility] Comment on above: Performed By: #### C MP #### [facility] [address] [place], [place] [address] Dr. Brock Elias Potassium [Moles/Vol] 4.1 mmol/L Normal 3.5-5.1 [facility] Comment on above: Performed By: #### C MP #### [facility] [address] [address] [address] Brock Elias Protein [Mass/Vol] 6.9 g/dL Normal 6.4-8.2 [facility] Comment on above: Performed By: #### C MP #### [facility] [address] [address] [address] Brock Elias Sodium [Moles/Vol] 139 mmol/L Normal 136-145 [facility] Comment on above: Performed By: #### C MP #### [facility] [address] [address] [address] Brock Elias Urea nitrogen [Mass/Vol] 12.0 mg/dL Normal 7.0-18.0 [facility] Comment on above: Performed By: #### C MP #### [facility] [address] [address] [address] Brock Elias Urea nitrogen/Creatinine [Mass ratio] 15.2 mg/mg Normal [facility] Comment on above: Performed By: #### C MP #### [facility] [id number] Brock Elias US VAC ASST BX BREAST RT W C Ilana 06-12-2022 US VAC ASST BX BREAST RT W CLIP Begin Addendum #1 COLLECTED DATE/TIME: 06/04/2022 08:21 EST Final Diagnosis Report for [facility] [place] ULTRASOUND GUIDED CORE BIOPSY RIGHT BREAST [...] provided after pathology results are available. Normal [facility] MAMMO POST BIOPSY RIGHTon MAMMO POST BIOPSY RIGHT Patient: RADHA SANTACRUZ Exam Date: 06/04/2022 : 1975 Gender:F Ordering : DONNIE AGEE Admission #: [id number] Family : Order #: [id number] CLICK HERE TO VIEW EXAM RADIOLOGY REPORT [...] Moreno M.D. on 06/09/2022 at 13:27 Normal [facility] 05-28-2022 [facility] RADHA SANTACRUZ ([id number]) 1975 F Date Time Provider Department 05/28/22 CHANCE LANGLEY During your visit today, we recorded the following information about you: Bandar Miya 05/28/2022 2:23 PM Signed Pt is being referred by [facility] dx Breast Ca. Per Karina Antunez schedule [...] Encounter Status:Closed by BANDAR LAGUNA on 05/30/22 [facility] MG MAMM RT DIAG FUon 022 MG MAMM RT DIAG Patient: ONIEL SANTACRUZ Exam Date: 05/28/2022 : 1975 Gender:F Ordering : DONNIE KAMINSKI [employer] Admission #: [id number] Family : Order #: [id number] CLICK HERE TO VIEW EXAM RADIOLOGY REPORT [...] breast cancer at age 38. LOCATION: [facility] BREAST COMPOSITION: Scattered areas fibroglandular density. FINDINGS: [...] M.D. 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 LOCATION: [facility] BREAST COMPOSITION: Scattered areas fibroglandular density. FINDINGS: [...] M.D. on 05/28/2022 at 12:33 Normal [facility] XR HAND MARTHA MIN 3Von 022 XR HAND AMRTHA MIN 3V EXAM: XR HAND MARTHA WV N 3V HISTORY: Bilateral hand pain COMPARISON: None. TECHNIQUE: 3 views of each hand FINDINGS: No fracture, dislocation, subluxation or osseous lesion. Joint spaces are normal for patient's age. No visualized erosion or joint effusion. No soft tissue edema. IMPRESSION: Normal hand x-rays Electronically authenticated by: AGUSTIN ADAMSON Date: 2022-05-19 16:32 Normal [facility] XR LSPINE 2_3 VIEWSon 2021 XR LSPINE [...] by: AGUSTIN ADAMSON Date: 2022-05-19 16:[address] 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 LOCATION: [facility] BREAST COMPOSITION: Scattered areas fibroglandular density. FINDINGS: [...] MD on 04/30/2022 at 07:23 Approved by: Augstin Stephenson MD on 04/30/2022 at 07:26 Normal [facility] Physician Referralon 022 Physician Referral [phone] [phone] [id number] 0CD:[id number] Normal [facility] Physician Referral [phone] [phone] [id number] 0CD:127 Normal [facility] CBC AUTO DIFFon 04-14-2022 BASO # 0.1 103/ul Normal 0.0-0.1 [facility] Comment on above: Performed By: #### C MP #### [facility] [address] [place] [address] Dr. Brock Elias Basophils/100 WBC (Bld) 0.8 % Normal 0.2-2.0 [facility] Comment on above: Performed By: #### C MP #### [facility] [address] [place] [address] Dr. Brock Elias EO # 0.2 103/ul Normal 0.0-0.7 [facility] Comment on above: Performed By: #### C MP #### [facility] [address] [place] [address] Dr. Brock Elias Eosinophils/100 WBC (Bld) 2.1 % Normal 0.9-7.0 [facility] Comment on above: Performed By: #### C MP #### [facility] [address] [place] [address] Dr. Brock Elias Erythrocyte distribution width (RBC) [Ratio] 14.0 % Normal 11.0-15.0 [facility] Comment on above: Performed By: #### C MP #### [facility] [address] [address] [address] Brock Elias Hematocrit (Bld) [Volume fraction] 39.6 % Normal 36.0-48.0 [facility] Comment on above: Performed By: #### C MP #### [facility] [address] [address] [address] Brock Elias Hemoglobin (Bld) [Mass/Vol] 12.6 g/dL Normal 12.0-16.0 [facility] Comment on above: Performed By: #### C MP #### [facility] [address] [address] [address] Brock Elias IG # 0.02 10e3/ul Normal 0.00-0.03 [facility] Comment on above: Performed By: #### C MP #### [facility] [address] [place] [address] Dr. Brock Elias IG % 0.2 % Normal 0.0-0.5 [facility] Comment on above: Performed By: #### C MP #### [facility] [address] [place] [address] Dr. Brock Elias LYMPH # 2.2 103/ul Normal 1.2-3.8 [facility] Comment on above: Performed By: #### C MP #### [facility] [address] [place] [address] Dr. Brock Elias Lymphocytes/100 WBC (Bld) 25.5 % Normal 20.5-60.0 [facility] Comment on above: Performed By: #### C MP #### [facility] [address] [place] [address] Dr. Brock Elias MANUAL DIFF REQ NO Normal [facility] Comment on above: Performed By: #### C MP #### [facility] [address] [place] [address] Dr. Brock Elias MCH (RBC) [Entitic mass] 28.0 pg Normal 26.7-34.0 [facility] Comment on above: Performed By: #### C MP #### [facility] [address] [address] [address] Brock Elias MCHC (RBC) [Mass/Vol] 31.8 g/dL Normal 29.9-35.2 [facility] Comment on above: Performed By: #### C MP #### [facility] [address] [address] [address] Brock Elias MCV (RBC) [Entitic vol] 88.0 fL Normal 81.0-99.0 [facility] Comment on above: Performed By: #### C MP #### [facility] [address] [address] [address] Brock Elias MONO # 0.4 103/ul Normal 0.3-0.8 [facility] Comment on above: Performed By: #### C MP #### [facility] [address] [place] [address] Dr. Brock Elias Monocytes/100 WBC (Bld) 4.8 % Normal 1.7-12.0 [facility] Comment on above: Performed By: #### C MP #### [facility] [address] [place] [address] Dr. Brock Elias NEUT # 5.6 103/ul Normal 1.4-6.5 [facility] Comment on above: Performed By: #### C MP #### [facility] [address] [place] [address] Dr. Brock Elias Neutrophils/100 WBC (Bld) 66.6 % Normal 43.0-75.0 [facility] Comment on above: Performed By: #### C MP #### [facility] [address] [place] [address] Dr. Brock Elias Platelet mean volume (Bld) [Entitic vol] 9.9 fL Normal 9.5-13.5 [facility] Comment on above: Performed By: #### C MP #### [facility] [address] [place] [address] Dr. Brock Elias PLT 266 103/ul Normal 150-450 [facility] Comment on above: Performed By: #### C MP #### [facility] [address] [address] [address] Brock Elias RBC 4.50 106/ul Normal 4.20-5.40 [facility] Comment on above: Performed By: #### C MP #### [facility] [address] [place] [address] Dr. Brock Elias WBC 8.5 103/ul Normal 4.0-11.0 [facility] Comment on above: Performed By: #### C MP #### [facility] [address] [place] [address] Dr. Brock Elias GLYCOHEMOGLOBIN A1Con 2021 ADA RECOMMENDATION SEE BELOW Normal [facility] Comment on above: Result Comment: ADA RECOMMENDED LIMIT 4.0 - 6.0 ADA THERAPEUTIC TARGET < 7.0 ACTION SUGGESTED > 7.0 Performed By: #### A 1C #### [facility] [address] [place] [address] Dr. Brock Elias Glucose [Mass/Vol] 123 mg/dL Normal [facility] Comment on above: Performed By: #### A 1C #### [facility] [address] [place] [address] Dr. Brock Elias HbA1c (Bld) [Mass fraction] 5.9 % Normal 4.5-6.2 [facility] Comment on above: Performed By: #### A 1C #### [facility] [address] [place] [address] Dr. Brock Elias LIPID PROFILEon 04-14-2022 CHOL-HDL RATIO NORM SEE BELOW Normal [facility] Comment on above: Result Comment: 3.3 - 4.4 LOW RISK 4.4 - 7.1 AVERAGE RISK 7.1 - 11.0 MODERATE RISK >11.0 HIGH RISK Performed By: #### R F #### [facility] [address] [place] [address] Dr. Brock Elias Cholesterol [Mass/Vol] 133 mg/dL Normal <=200 [facility] Comment on above: Performed By: #### R F #### [facility] [address] [place] [address] Dr. Brock Elias Cholesterol in HDL [Mass/Vol] 43 mg/dL Normal 40-60 [facility] Comment on above: Performed By: #### R F #### [facility] [address] [address] [address] Brock Elias Cholesterol in LDL [Mass/Vol] 74.2 mg/dL Normal [facility] Comment on above: Performed By: #### R F #### [facility] [address] [address] [address] Brock Elias Cholesterol.total/Ch olesterol in HDL [Mass ratio] 3.1 {ratio} Normal [facility] Comment on above: Performed By: #### R F #### [facility] [address] [address] [address] Brock Elias HDL NORMAL > or = 60 mg/dl - LO W CARDIOVASCULAR RISK <40 mg/dl - HIGH CARDIOVASCULAR RISK Normal [facility] Comment on above: Performed By: #### R F #### [facility] [address] [place] [address] Dr. Brock Elias LDL CALC NORMAL SEE BELOW Normal [facility] Comment on above: Result Comment: <100 mg/dl OPTIMAL 100 - 129 mg/dl NEAR OR ABOVE OPTIMAL 130 - 159 mg/dl BORDERLINE HIGH 160 - 189 mg/dl HIGH >190 mg/dl VERY HIGH Performed By: #### R F #### [facility] [address] [place] [address] Dr. Brock Elias Triglyceride [Mass/Vol] 79 mg/dL Normal <=150 [facility] Comment on above: Performed By: #### R F #### [facility] [address] [address] [address] Brock Elias VLDL CALC 15.8 mg/dL Normal [facility] Comment on above: Performed By: #### R F #### [facility] [address] [place] [address] Dr. Brock Elias PROF 14(COMP METB)on 022 Albumin [Mass/Vol] 3.6 g/dL Normal 3.4-5.0 [facility] Comment on above: Performed By: #### H IV12 #### [facility] [address] [place] [address] Dr. Brock Elias Albumin/Globulin [Mass ratio] 0.9 {ratio} Normal [facility] Comment on above: Performed By: #### H IV12 #### [facility] [address] [place] [address] Dr. Brock Elias ALP [Catalytic activity/Vol] 83 U/L Normal 46-116 [facility] Comment on above: Performed By: #### H IV12 #### [facility] [address] [place] [address] Dr. Brock Elias ALT [Catalytic activity/Vol] 15 U/L Normal 14-59 [facility] Comment on above: Performed By: #### H IV12 #### [facility] [address] [place] [address] Dr. Brock Elias Anion gap [Moles/Vol] 9.5 mmol/L Normal [facility] Comment on above: Performed By: #### H IV12 #### [facility] [address] [place] [address] Dr. Brock Elias AST [Catalytic activity/Vol] 12 U/L Critically low 15-37 [facility] Comment on above: Performed By: #### H IV12 #### [facility] [address] [place] [address] Dr. Brock Elias Bilirubin [Mass/Vol] 0.4 mg/dL Normal 0.2-1.0 [facility] [facility] Comment on above: Performed By: #### H IV12 #### [facility] [address] [place] [address] Dr. Brock Elias Calcium [Mass/Vol] 8.9 mg/dL Normal 8.5-10.1 [facility] Comment on above: Performed By: #### H IV12 #### [facility] [address] [place] [address] Dr. Brock Elias Chloride [Moles/Vol] 105 mmol/L Normal 98-107 [facility] Comment on above: Performed By: #### H IV12 #### [facility] [address] [place] [address] Dr. Brock Elias CO2 [Moles/Vol] 28.5 mmol/L Normal 21.0-32.0 [facility] Comment on above: Performed By: #### H IV12 #### [facility] [address] [address] [address] Brock Elias Creatinine [Mass/Vol] 0.73 mg/dL Normal 0.55-1.02 [facility] Comment on above: Performed By: #### H IV12 #### [facility] [address] [address] [address] Brock Elias EGFR-AF GHANAIAN >60 Normal >=60 [facility] Comment on above: Performed By: #### H IV12 #### [facility] [address] [place] [address] Dr. Brock Elias EGFR-NON AF GHANAIAN >60 Normal >=60 [facility] Comment on above: Performed By: #### H IV12 #### [facility] [address] [place] [address] Dr. Brock Elias Globulin (S) [Mass/Vol] 3.8 g/dL Normal [facility] Comment on above: Performed By: #### H IV12 #### [facility] [address] [place] [address] Dr. Brock Elias Glucose [Mass/Vol] 99 mg/dL Normal 74-106 [facility] Comment on above: Performed By: #### H IV12 #### [facility] [address] [place] [address] Dr. Brock Elias Potassium [Moles/Vol] 4.0 mmol/L Normal 3.5-5.1 [facility] Comment on above: Performed By: #### H IV12 #### [facility] [address] [address] [address] Brock Elias Protein [Mass/Vol] 7.4 g/dL Normal 6.4-8.2 [facility] Comment on above: Performed By: #### H IV12 #### [facility] [address] [place] [address] Dr. Brock Elias Sodium [Moles/Vol] 139 mmol/L Normal 136-145 [facility] Comment on above: Performed By: #### H IV12 #### [facility] [address] [place] [address] Dr. Brock Elias Urea nitrogen [Mass/Vol] 12.0 mg/dL Normal 7.0-18.0 [facility] Comment on above: Performed By: #### H IV12 #### [facility] [address] [place] [address] Dr. Brock Elias Urea nitrogen/Creatinine [Mass ratio] 16.4 mg/mg Normal [facility] Comment on above: Performed By: #### H IV12 #### [facility] [address] [place] [address] Dr. Brock Elias TSHon 04-14-2022 TSH 1.033 uIU/mL Normal 0.358-3.740 [facility] Comment on above: Performed By: #### H IV12 #### [facility] [address] [place] [address] Dr. Brock Elias HEMOGLOBINon 04-10-2022 Hemoglobin (Bld) [Mass/Vol] 13.0 g/dL Normal 12.0-16.0 [facility] Comment on above: Performed By: #### C MP #### [facility] [address] [place] [address] Dr. Brock Elias Operative Reporton 2 Operative Report MR#: [id number] [facility] Pt. Name: Radha Santacruz Room #: [id number] Discharge 03/01/2022 Date: Birthdate: 1975 OPERATIVE REPORT [...] point, (more content not included)... Normal [facility] POC GLUCOSE LABon 02-28-2022 Glucose [Mass/Vol] 94 mg/dL Normal 70-100 [facility] Comment on above: Performed By: #### 8 [id number] #### [address] [place] [address], [facility] PORTABLE KNEE RIGHT 2 [facility] 02-28-2022 PORTABLE KNEE RIGHT 2 [facility] Department of Radiology [address] [place] [phone] ======== Patient Name: RADHA SANTACRUZ : [...] fracture. Electronically signed: Joellen Sweeney. Transcribed by: [email or web address], User Resident: Electronically Signed by: JOELLEN SWEENEY @ 02/28/2022 05:45 PM Normal [facility] Comment on above: Order Comment: Hardw are Evaluation, in PACU MRI KNEE WO CONTRAST RIGHT 12-10-2021 MRI KNEE WO CONTRAST [facility] Department of Radiology [address] [place] [phone] ======== Patient Name: RADHA SANTACRUZ : 1975 Sex: F Age: Race: White Pt. Location: 84 Patient Status: D Ordered Date: 11/21/2021 2:35:00 PM Completed Date: 12/10/2021 01:08 PM Requesting Provider: PETERSON BHATIA Attending Provider: PETERSON BHATIA Report Copy To: Signs & Symptoms: M25.561 Pain in right knee I10 History: [place], pt. has pain pump, ortho hardware back Comments: LEIJA AND NEPHEW PROTOCOL , Side: RIGHT Exam: MRI KNEE WO CONTRAST RIGHT ======== MRI KNEE WO CONTRAST RIGHT 12/10/2021 1:08 PM CLINICAL INDICATIONS: M25.561 Pain in right knee I10 TECHNOLOGIST COMMENTS: pre TKA leija and nephew protocol QUESTION FOR THE RADIOLOGIST: LEIJA AND NEPHCABRERA PROTOCOL , Side: RIGHT PROTOCOL: Images were [...] above Electronically signed: Adelaida Dinh. Transcribed by: [email or web address], User Resident: Electronically Signed by: ADELAIDA DINH @ 12/11/2021 09:43 AM Normal [facility] Comment on above: Order Comment: LEIJA AND NEPHCABRERA PROTOCOL , Side: RIGHT KNEE LEFT 3 Son 11-21-2021 KNEE LEFT 3 S [facility] Department of Radiology [address] [place] [phone] ======== Patient Name: RADHA SANTACRUZ : 1975 Sex: F Age: Race: White Pt. Location: 84 Patient Status: D Ordered Date: 11/21/2021 12:30:00 PM Completed Date: 11/21/2021 01:35 PM Requesting Provider: PTEERSON BHATIA Attending Provider: PETERSON BHATIA Report Copy To: ROSA CM Signs & Symptoms: M25.561 Pain in right knee I10 History: [place] Comments: Views (X-RAY, KNEE): AP, Lateral, [place] Exam: KNEE LEFT 3 [facility] ======== KNEE LEFT 3 [facility] 11/21/2021 1:35 PM CLINICAL INDICATIONS: M25.561 Pain in right knee I10 TECHNOLOGIST COMMENTS: Pt stated having bilateral knees pain, no known injury. QUESTION FOR THE RADIOLOGIST: Views (X-RAY, KNEE): AP, Lateral, [place] PROTOCOL: AP,Lateral and Tangential views were obtained. COMPARISON: 11/04/2014 FINDINGS: Severe joint space narrowing in the medial femorotibial compartment. Tricompartmental osteophyte formation. Small knee joint effusion. IMPRESSION: Tricompartmental osteoarthritis most prominent in the medial femorotibial compartment. Electronically signed: Elizabeth Landis. Transcribed by: [email or web address], User Resident: Electronically Signed by: ELIZABETH LANDIS @ 11/23/2021 03:26 PM Normal [facility] Comment on above: Order Comment: Views (X-RAY, KNEE): AP, Lateral, [place] KNEE RIGHT 3 [facility] 2 KNEE RIGHT 3 [facility] Department of Radiology [address] [place] [phone] ======== Patient Name: RADHA SANTACRUZ : 1975 Sex: F Age: Race: White Pt. Location: 84 Patient Status: D Ordered Date: 11/21/2021 12:30:00 PM Completed Date: 11/21/2021 01:35 PM Requesting Provider: PETERSON BHATIA Attending Provider: PETERSON BHATIA Report Copy To: CM LEE Signs & Symptoms: M25.561 Pain in right knee I10 History: [place] Comments: Views (X-RAY, KNEE): AP, Lateral, [place] Exam: KNEE RIGHT 3 V[facility] ======== KNEE RIGHT 3 [facility] 11/21/2021 1:35 PM CLINICAL INDICATIONS: M25.561 Pain in right knee I10 TECHNOLOGIST COMMENTS: Pt stated having bilateral knees pain, no known injury. QUESTION FOR THE RADIOLOGIST: Views (X-RAY, KNEE): AP, Lateral, [place] PROTOCOL: AP,Lateral and Tangential views were obtained. COMPARISON: 02/18/2011 FINDINGS: Severe tricompartmental osteophyte formation and joint space narrowing. No fracture. No malalignment. Moderate knee joint effusion. IMPRESSION: Severe tricompartmental osteoarthritis. Electronically signed: Elizabeth Landis. Transcribed by: [email or web address], User Resident: Electronically Signed by: ELIZABETH LANDIS @ 11/23/2021 03:26 PM Normal [facility] Comment on above: Order Comment: Views (X-RAY, KNEE): AP, Lateral, [place] LOWER EXTREMITY JOINT SURVEY on 11-21-2021 LOWER EXTREMITY JOINT SURVEY [facility] Department of Radiology [address] [place] [phone] ======== Patient Name: RADHA SANTACRUZ : 1975 Sex: F Age: Race: White Pt. Location: Patient Status: D Ordered Date: 11/21/2021 1:05:00 PM Completed Date: 11/21/2021 01:35 PM Requesting Provider: PETERSON BHATIA Attending Provider: PETERSON BHATIA Report Copy To: CM LEE Signs & Symptoms: M25.561 Pain in right knee I10 History: [place] Comments: Exam: LOWER EXTREMITY JOINT SURVEY ======== [...] above. Electronically signed: Elizabeth Landis. Transcribed by: [email or web address], User Resident: Electronically Signed by: ELIZABETH LANDIS @ 11/23/2021 11:03 PM Normal [facility] Cytologyon 10-23-2021 Cytology (NOTE) INTERPRETATION Cervical material, (ThinPrep vial, Imaging-assisted review): Specimen Adequacy: Satisfactory for evaluation. - Endocervical/transform ation zone component present. Descriptive Diagnosis: Negative for intraepithelial lesion or malignancy. Employee Counselor: IRINA Estrada(ASCP) Electronically Signed Out /10/29/2021 Source: A: Cervical material, (ThinPrep vial, Imaging-assisted review) Clinical History Z01.419 Routine medical detailist exam without abnormal findings High risk HPV DNA testing is requested if the diagnosis is abnormal GYNECOLOGIC CYTOLOGY REPORT Patient Name: RADHA SANTACRUZ [facility] Rec: [id number] Path Number: [id number] [employer] ANATOMIC PATHOLOGY [address] [place] [phone] [facility] Comment on above: Performed By: #### P PPVP #### [facility] [address] [place] [phone] Front Desk Host: Saw Elizondo MD Surgical Pathologyon Surgical Pathology (NOTE) -- Diagnosis -- ENDOMETRIUM, BIOPSY: - DISORDERED PROLIFERATIVE ENDOMETRIUM. Harjit Flores M.D. Electronically Signed Out [facility]10/25/2021 Clinical Information Pre-op Diagnosis: IRREGULAR/HEAVY MENSTRUAL BLEEDING Operative Findings: ENDOMETRIAL BX Source of Specimen A: ENDO BIOPSY Gross Description RADHA SANTACRUZ ENDO BIOPSY Blood-tinged mucinous material, 2.5 x 1.5 x 0.5 cm in aggregate. Entirely 1cs. mpb tm Microscopic Description The endometrium has disordered proliferative features. There is no evidence of atypia or malignancy. SURGICAL PATHOLOGY CONSULTATION Patient Name: RADHA SANTACRUZ [facility] Rec: [id number] Path Number: [id number] [employer] ANATOMIC PATHOLOGY [address] [place] [phone] [facility] Comment on above: Performed By: #### P PPVS #### [facility] [address] [place] [phone] Front Desk Host: Saw Elizondo MD Vital Signs Date Time Vital Sign Value Performing Clinician Facility 06-01-2023 16:00-0500 Body height Kayla Franklin Other [employer] Other 06-01-2023 16:00-0500 Body mass index (BMI) [Ratio] 51.84 kg/m2 Kayla Franklin Other [employer] Other 06-01-2023 16:00-0500 Body temperature 98.4 [degF] Kayla Franklin Other [employer] Other 06-01-2023 16:00-0500 Body weight 124.47 kg Kayla Franklin Other [employer] Other 06-01-2023 16:00-0500 Respiratory rate 18 /min Kayla Franklin Other [employer] Other 06-01-2023 16:00-0500 SaO2% (BldA) [Mass fraction] 93 % Kayla Franklin Other [employer] Other 03-05-2023 16:45-0400 Body temperature 97.2 [degF] Mohit Dejesus MD Work Phone: [employer] 03-05-2023 16:45-0400 Diastolic blood pressure 76 mm[Hg] Mohit Dejesus MD Work Phone: [employer] 03-05-2023 16:45-0400 Heart rate 75 /min Mohit Dejesus MD Work Phone: [employer] 03-05-2023 16:45-0400 Respiratory rate 16 /min Mohit Dejesus MD Work Phone: [employer] 03-05-2023 16:45-0400 SaO2% (BldA) [Mass fraction] 96 % Mohit Dejesus MD Work Phone: [employer] 03-05-2023 16:45-0400 Systolic blood pressure 141 mm[Hg] Mohit Dejesus MD Work Phone: [facility] [place] 03-05-2023 12:57-0400 Body height 154.9 cm Mohit Dejesus MD Work Phone: [employer] 03-05-2023 12:57-0400 Body mass index (BMI) [Ratio] 49.32 kg/m2 Mohit Dejesus MD Work Phone: [employer] 03-05-2023 12:57-0400 Body weight 118.39 kg Mohit Dejesus MD Work Phone: [facility] [place] Encounters Encounter Date Encounter Type Care Provider Facility Start: 09-03-2023 End: 09-04-2023 ambulatory [facility] Start: 09-03-2023 End: 09-03-2023 ambulatory [facility] Start: 08-26-2023 Telephone encounter Fatmata Barger CMA [facility] Start: 08-25-2023 End: 08-25-2023 ambulatory KOFI BETTS [facility] Start: 08-24-2023 End: 08-24-2023 ambulatory ALIS STEINBERG Not Available Start: 08-14-2023 End: 08-15-2023 ambulatory VALORIE ARIAS [facility] Start: 07-30-2023 End: 07-30-2023 ambulatory MEDINA [facility] Start: 07-27-2023 End: 07-27-2023 ambulatory MEDINA Roblero [facility] Start: 06-01-2023 End: 06-01-2023 ambulatory Kayla Reid Other [facility] [employer] Other Start: 06-01-2023 Office outpatient vi sit 15 minutes Kayla Reid [facility] Start: 05-25-2023 End: 05-25-2023 ambulatory ADELAIDA SUBRAMANIAN Not Available Start: 04-27-2023 End: 04-27-2023 ambulatory [facility] Start: 03-05-2023 End: 03-05-2023 ambulatory [facility]agan [facility] Start: 03-05-2023 End: 03-05-2023 Subsequent hospital visit by physician Mohit Dejesus MD Work Phone: [facility] Start: 02-19-2023 End: 02-24-2023 ambulatory MOHIT Sebastian Munjor [facility] Start: 01-12-2023 End: 01-12-2023 ambulatory [facility] Start: 10-28-2022 End: 10-29-2022 ambulatory DONNIE SHAMMO Facility:[facility] Start: 10-27-2022 End: 10-27-2022 ambulatory [facility] Start: 10-09-2022 ambulatory DONNIE SHAMMO Facility:[facility] Start: 09-18-2022 ambulatory [facility] Start: 09-15-2022 End: 09-16-2022 ambulatory DONNIE SHAMMO Facility:[facility] Start: 09-14-2022 End: 09-14-2022 ambulatory DONNIE SHAMMO Facility:[facility] Start: 09-12-2022 End: 09-12-2022 ambulatory [facility] Start: 08-13-2022 ambulatory DONNIE SHAMMO Facility:[facility] Start: 08-12-2022 End: 08-13-2022 ambulatory DONNIE SHAMMO Facility:[facility] Start: 07-22-2022 End: 07-23-2022 ambulatory DONNIE SHAMMO Facility:[facility] Start: 07-11-2022 End: 07-12-2022 ambulatory DONNIE SHAMMO Facility:[facility] Start: 06-10-2022 Chart abstracting Jarad hemphill MD Work Phone: Hematology/Oncology Start: 06-04-2022 End: 06-04-2022 ambulatory DONNIE SHAMMO Facility:[facility] Start: 05-28-2022 Telephone encounter Chance stokes MD Work Phone: [facility] Comment on above: Appointment Start: 05-28-2022 End: 05-29-2022 ambulatory DONNIE SHAMMO Facility:[facility] Start: 05-19-2022 End: 05-20-2022 ambulatory DONNIE SHAMMO Facility:[facility] Start: 05-07-2022 ambulatory Rick STAPLES Facility :[facility] Start: 04-29-2022 End: 04-30-2022 ambulatory DONNIE SHAMMO Facility:[facility] Start: 04-29-2022 ambulatory DONNIE SHAMMO Facility:[facility] Start: 04-20-2022 Encounter for genera l adult medical examination without [facility]: 04-14-2022 ambulatory DONNIE SHAMMO Facility:[facility] Start: 04-14-2022 End: 04-15-2022 ambulatory DONNIE SHAMMO Facility:[facility] Start: 04-14-2022 End: 04-15-2022 Encounter for general adult medical examination without abnormal findings DONNIE SHAMMO Facility: Start: 04-10-2022 End: 04-11-2022 ambulatory DONNIE SHAMMO Facility:[facility] Start: 02-28-2022 End: 03-01-2022 ambulatory Peterson Jannette Facility:[facility] Start: 01-02-2022 End: 01-02-2022 Subsequent hospital visit by physician Kulwant Arenas MD Work Phone: [facility] Comment on above: No Show Start: 12-10-2021 End: 12-11-2021 ambulatory Peterson Jannette Facility:[facility] Start: 11-21-2021 End: 11-22-2021 ambulatory Peterson Jannette Facility:[facility] Start: 10-23-2021 End: 10-24-2021 [facility] Start: 10-23-2021 End: 10-23-2021 Patient encounter procedure [facility] Start: 10-23-2021 End: 10-23-2021 Subsequent hospital visit by physician [facility] Comment on above: Irregular menstrual bleeding; Women's annual routine gynecological examination Procedures Date Procedure Procedure Detail Performing Clinician Start: 03-05-2023 Blood count complete automated Mohit Dejesus MD Work Phone: Start: 03-05-2023 Urine test visual color cmprsn meths Mohit Dejesus MD Work Phone: Start: 10-23-2021 Microscopic observat ion [Identifier] in Cervix by Cyto stain Kulwant Arenas MD Work Phone: Plan of Treatment Date Care Activity Detail Author Start: 08-08-2026 Lipid panel Lipids [facility] Start: 10-23-2024 Screening for malign ant neoplasm of cervix [facility] Start: 03-31-2024 Adult BMI Screening Adult BMI Screen ing [facility] Start: 03-31-2024 Tobacco Screening Tobacco Screening [facility] Start: 02-20-2024 Hemoglobin A1c measurement A1C test (Diabetic or Prediabetic) [facility] Start: 08-27-2023 End: 08-27-2023 Patient encounter procedure 08/27/2023 12:00 PM EST Office Visit [facility] [address] [place] [address] Tram Hahn MD [address] [place] [address] [facility] Start: 2023 Administration of varicella zoster vaccine Zoster (Shingles) Vaccine (1 of 2) [facility] Start: 03-05-2023 End: 03-05-2023 Impltj/rplcmt ithcl/edrl drug nfs prgrbl pump PAIN PUMP INSERTION REMOVAL Post laminectomy syndrome 03/05/2023 2:52 PM EDT [facility] Start: 02-20-2023 Influenza vaccination Influenza Vacc ine [facility] Start: 01-20-2023 Influenza vaccination Flu vaccine (# 1) [facility] Start: 10-14-2022 Creatinine measurement Creatinine [facility] Start: 10-14-2022 Potassium [Moles/vol ume] in Serum or Plasma Potassium [facility] Start: 02-20-2022 Influenza vaccination [facility] Start: 01-08-2022 End: 01-08-2022 Admission to same day surgery center 01/08/2022 Surgery IP Unit Kulwant Arenas MD [address] [place] [address] DILATATION AND CURETTAGE HYSTEROSCOPY CAUTERY ABLATION-NOVASURE [facility] Comment on above: DILATATION AND CURET TAGE HYSTEROSCOPY CAUTERY ABLATION-NOVASURE Start: 01-08-2022 End: 01-08-2022 Hysteroscopy endometrial ablation DILATATION AND CURETTAGE HYSTEROSCOPY CAUTERY ABLATION DYSFUNCTIONAL UTERINE BLEEDING 01/08/2022 8:50 AM EDT [facility] Start: 01-08-2022 Subsequent hospital visit by physician 01/08/2022 Hospital Encounter IP Unit Kulwant Arenas MD [address] [place], [place] [id number] [facility] Start: 11-01-2021 End: 11-01-2021 Patient encounter procedure 11/01/2021 Office Visit Obstetrics and Gynecology Kulwant Arenas MD [address] [facility], [place] [id number] [facility] OBSTETRICS [facility] Start: 11-01-2021 End: 11-01-2021 Professional / ancillary services management 11/01/2021 Ancillary Procedure Obstetrics and Gynecology [facility] OBSTETRICS GYNECOLOGY [facility] Start: 06-22-2021 DEPRESSION ASSESSMENT DEPRESSION ASS ESSMENT [facility] Start: 2018 COLOGUARD (FIT-DNA) COLOGUARD (FIT-D NA) [facility] Start: 2018 Colonoscopy COLONOSCOPY [facility] Start: 2018 COLORECTAL CANCER SCREENING COLORECTAL CANCER SCREENING [facility] Start: [address] COLONOGRAPHY [facility] Start: 2018 DIABETES SCREEN DIABETES SCREEN [facility] Start: 2018 FECAL OCCULT BLOOD FECAL OCCULT BLOO D [facility] Start: 2018 LIPID SCREEN LIPID SCREEN [facility] Start: 2018 Screening for malign ant neoplasm of colon [facility] Start: 2018 SIGMOIDOSCOPY SIGMOIDOSCOPY [facility] Start: 2013 Mammography MAMMOGRAM [facility] Start: 2013 Screening for malign ant neoplasm of breast Breast cancer screen [facility] Start: 2008 Diabetes screen Diabetes screen [facility] Start: 2003 HPV TESTING HPV TESTING [facility] Start: 2003 Screening for malign ant neoplasm of cervix [facility] Start: 1994 PAP TESTING PAP TESTING [facility] Start: 1994 Screening for malign ant neoplasm of cervix Pap smear [facility] Start: 1992 DTaP,Tdap and Td Vaccines (1 - Tdap) DTaP,Tdap and Td Vaccines (1 - Tdap) [facility] Start: 1992 DTaP/Tdap/Td vaccine (1 - Tdap) DTaP/Tdap/Td vaccine (1 - Tdap) [facility] Start: 1992 Urine microalbumin profile DTAP,TDAP,TD (1 - Tdap) [facility] Start: 1991 Adult BMI Follow Up Plan Adult BMI Follow Up Plan [facility] Start: 1991 Hepatitis C screening Hepatitis C sc [facility] Start: 1991 HEPATITIS C SCREENING HEPATITIS C SC [facility] Start: 1991 HIV SCREENING HIV SCREENING [facility] Start: 1988 HIV screening HIV screen [facility] Start: 1985 Depression Screen Depression Screen [facility] Start: 1985 Depression Screening Depression Scre ening [facility] Start: 1983 Lipid panel Lipids [facility] Start: 1979 Pneumococcal 0-64 ye ars Vaccine (1 - PCV) Pneumococcal 0-64 years Vaccine (1 - PCV) [facility] Start: 1978 COVID-19 Vaccine (1) COVID-19 Vaccin e (1) [facility] Start: 01-02-1974 COVID-19 Vaccine (#1) COVID-19 Vacci ne (#1) [facility] Start: 1973 HEPATITIS B (1 of 3 - 3-dose series) HEPATITIS B (1 of 3 - 3-dose series) [facility] Start: 1973 Hepatitis B vaccine (1 of 3 - 3-dose series) Hepatitis B vaccine (1 of 3 - 3-dose series) [employer] Start: 1973 Tobacco Counseling Tobacco Counselin [facility] End: 03-06-2023 Blood glucose - POCT Blood glucose - POCT Point of Care Testing Routine One Time for 1 Occurrences starting 03/06/2023 until 03/06/2023 [employer] Comment on above: One Time for 1 Occur rences starting 03/06/2023 until 03/06/2023 End: 10-23-2021 Cytopathology procedure, preparation of smear, genital source PAP SMEAR Lab Routine Women's annual routine gynecological examination 1 Occurrences starting 10/23/2021 until 10/23/2021 [employer] Phone: Comment on above: 1 Occurrences starti ng 10/23/2021 until 10/23/2021 End: 03-05-2023 INITIATE PACU OXYGEN THERAPY PROTOCOL Initiate PACU Oxygen Therapy Protocol Respiratory Care Routine Continuous until discontinued starting 03/05/2023 [employer] Phone: Comment on above: Continuous until dis continued starting 03/05/2023 Oxygen therapy [[facility] Data Set] Initiate Oxygen Therapy Protocol Respiratory Care Routine As Needed until discontinued starting 03/05/2023 [employer] Phone: Comment on above: As Needed until disc ontinued starting 03/05/2023 End: 03-06-2023 , urine , urine Lab Routine Tomorrow AM for 1 Occurrences starting 03/06/2023 until 03/06/2023 [employer] Comment on above: Tomorrow AM for 1 Oc currences starting 03/06/2023 until 03/06/2023 End: 10-23-2021 Surgical Pathology Surgical Pathology Lab Routine Irregular menstrual bleeding 1 Occurrences starting 10/23/2021 until 10/23/2021 [employer] Phone: Comment on above: 1 Occurrences starti ng 10/23/2021 until 10/23/2021 End: 10-23-2021 SURGICAL PATHOLOGY REPORT SURGICAL PATHOLOGY REPORT Lab Routine Once for 1 Occurrences starting 10/23/2021 until 10/23/2021 [employer] Phone: Comment on above: Once for 1 Occurrenc es starting 10/23/2021 until 10/23/2021 Jeff thomas Payers Date Payer Category Payer Medicaid MEDICAID [facility] MEDICAID [id number] 2021-Present [phone] [address] [place] [address] Medicaid [id number] 2013 Medicare [id number] [id number] 1973 Unknown [id number] 2.16.840.1.934090.3.579.2.173 1973 Unknown [id number] 2.16.840.1.368638.3.579.2.647 1973 Unknown [id number] 2.16.840.1.389731.3.579.2.647 1973 Unknown [id number] 2.16.840.1.696958.3.579.2.647 1973 Unknown [id number] 2.16.840.1.641471.3.579.2.727 1973 Unknown [id number] 2.16.840.1.605489.3.579.2.727 1973 Unknown [id number] 2.16.840.1.678430.3.579.2.593 1973 Unknown [id number] 2.16.840.1.499533.3.579.2.593 1973 Unknown [id number] 2.16.840.1.124838.3.579.2.593 1973 Unknown [id number] 2.16.840.1.371964.3.579.2.593 1973 Unknown [id number] 2.16.840.1.818132.3.579.2.593 1973 Unknown [id number] 2.16.840.1.351076.3.579.2.593 1973 Unknown [id number] 2.16.840.1.294005.3.579.2.593 1973 Unknown [id number] 2.16.840.1.082367.3.579.2.593 1973 Unknown [id number] 2.16.840.1.659711.3.579.2.593 1973 Unknown [id number] 2.16.840.1.476871.3.579.2.593 1973 Unknown [id number] 2.16.840.1.909997.3.579.2.593 1973 Unknown [id number] 2.16.840.1.602779.3.579.2.593 1973 Unknown [id number] 2.16.840.1.177705.3.579.2.593 1973 Unknown [id number] 2.16.840.1.602028.3.579.2.593 1973 Unknown [id number] 2.16.840.1.429723.3.579.2.177 1973 Unknown [id number] 2.16.840.1.864819.3.579.2.177 1973 Unknown [id number] 2.16.840.1.430182.3.579.2.1259 1973 Unknown [id number] 2.16.840.1.644065.3.579.2.1259 1959 Medicaid [id number] [id number].3.6 [id number] 1959 Medicare [id number] [id number].3.6 [id number] 1959 Self-pay Unknown [id number] 2.16.840.1.166582.3.579.2.593 Social History Date Type Detail Facility Start: 10-23-2021 End: 03-31-2023 Tobacco smoking status NHIS Smokes tobacco daily [employer] Phone: History of tobacco use Cigarette Smoker [facility] [employer] Phone: Start: 08-02-2020 End: 10-23-2021 Cigarettes smoked current (pack per day) - Reported 1.5 [employer] Phone: Start: 10-23-2021 End: 03-31-2023 Tobacco use and exposure Smokeless tobacco non-user [employer] Phone: Start: 10-23-2021 End: 11-01-2021 Alcohol intake Ex-drinker (finding) [employer] Phone: Start: 1975 Sex Assigned At Not on file [facility] [employer] Phone: Start: 02-19-2017 [facility] Start: 03-11-2017 End: 06-10-2022 Alcohol intake Current non-drinker of alcohol (finding) [facility] Start: 02-19-2017 End: 06-10-2022 Tobacco Comment 23 cigarettes to 2 pks per day [facility] History of tobacco use Passive smoker [facility] Start: 03-05-2023 End: 03-31-2023 Alcohol intake Current drinker of alcohol (finding) [facility] Start: 08-02-2020 End: 02-19-2023 Tobacco use panel [facility] Start: 02-19-2023 Alcohol Comment very rare- may be twice a year [facility] Childcare Unknown [facility] Start: 10-29-2021 Alcohol Comment rare [facility] Medical Equipment Procedure Code Equipment Code Equipment Origin al Text Equipment Identifier Dates Kit Catheter Rev Seg W Attch Sutureless Production Helper Conn 2 Cllt Rul - [id number] Start: 03-05-2023 Clinical Notes 01-02-2022 to 09-03-2023 Telephone Encounter - Fatmata Barger, [facility] - 08/26/2023 9:55 AM ESTTelephone Encounter - Fatmata Barger, [facility] - 08/26/2023 9:55 AM EST Note Date & Type Note Facility 09-03-2023 Note SUBJECTIVE: Chief complaint: Left leg pain. History of present illness: Consultation referred by Dr. Dejesus of pain management for back and leg pain. Reports pain in her left buttock that radiates posteriorly down her left leg to her knee that is chronic over many years, though has been especially bothersome over the past 3 to 4 months. Pain does not vary with time of day. Somewhat better with sitting. Worse with walking more than 40 feet, standing for any length of time, particularly in a stationary position. She does report chronic neuropathy in both legs and into her feet and toes in no particular dermatomal distribution. This has been since 2012. She does report imbalance. She denies falls or bowel or bladder changes. She does follow with pain management, Dr. Dejesus. She did have 1 injection previously without lasting of substantial relief. She has a current intrathecal pump for pain, which has not alleviating her current pain. She has previously had a spinal cord stimulator, which was subsequently removed. She is currently taking Tylenol as well as duloxetine and tizanidine without improvement. Has had 2 previous back surgeries, first in [address] Duffy. States there were complications during that surgery that resulted in my back being broken. She had a subsequent surgery with Dr. Stoddard in 2010 and states that that helped for a time. She does have a history of rheumatoid arthritis for which she takes methotrexate. 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 States she is having difficulty working 5 days a week and wonders if I will write her a note so that she can work only 4 days a week. She was previously on disability for 10 years. She also takes care of her ailing parents at home. Review of systems: Constitutional: Denies fever, chills. Head: Denies new headaches. Eyes: Denies new vision change. Ears: Denies change in hearing. Nose/throat: Denies dysphagia. Cardiovascular: Reports chest pain at times. Respiratory: Reports cough, shortness of breath. Extremities: Denies edema. Genitourinary: Denies incontinence or retention. Gastrointestinal: Denies bowel incontinence. Neurologic: Reports imbalance, denies falls. Does report numbness and tingling. Musculoskeletal: Reports back and leg pain. Past Medical History: Diagnosis Date CHF (congestive heart failure), NYHA class I ([facility]) Chronic mental illness COPD (chronic obstructive pulmonary disease) ([facility]) Dyslipidemia Heart attack ([facility]) Hypertension Neuropathy Past Surgical History: Procedure Laterality Date CARDIAC CATHETERIZATION SECTION, CLASSIC HERNIA REPAIR INTRATHECAL PUMP IMPLANTATION managed by Dr. Dejesus. KNEE ARTHROPLASTY LUMBAR FUSION 2009 Dr[address] Duffy MENISCECTOMY SPINAL CORD STIMULATOR IMPLANT SPINAL CORD STIMULATOR REMOVAL SPINAL FUSION 2010 Dr. Stoddard TONSILLECTOMY Social History Tobacco Use Smoking status: Every Day Packs/day: 1.00 Years: 35.00 Additional pack years: 0.00 Total pack years: 35.00 Types: Cigarettes Passive exposure: Current Smokeless tobacco: Never Vaping Use Vaping Use: Never used Substance Use Topics Alcohol use: Never Drug use: Yes Types: Marijuana Family History Problem Relation Name Age of Onset Coronary artery disease Mother No Known Problems Father OBJECTIVE: Medications: albuterol atorvastatin busPIRone DULoxetine folic acid furosemide HYDROmorphone hydrOXYzine HCL lamoTRIgine lisinopril methotrexate metoprolol succinate XL omeprazole spironolactone tiZANidine traZODone Trelegy Ellipta blister with device Vraylar capsule Current Outpatient Medications: albuterol 90 mcg/actuation inhaler, INHALE 2 PUFFS BY MOUTH EVERY 4 HOURS IF NEEDED FOR SHORTNESS OF BREATH, Disp: , Rfl: atorvastatin (Lipitor) 10 mg tablet, Take 10 mg by mouth in the morning., Disp: , Rfl: busPIRone (Buspar) 15 mg tablet, Take 15 mg by mouth in the morning and at bedtime., Disp: , Rfl: cariprazine (Vraylar) 4.5 mg capsule, Take 4.5 mg by mouth in the morning., Disp: , Rfl: DULoxetine (Cymbalta) [address] capsule, Take 60 mg by mouth in the morning., Disp: , Rfl: folic acid (Folvite) 1 mg tablet, Take 1 tablet (1 mg) by mouth in the morning., Disp: 90 tablet, Rfl: 3 furosemide (Lasix) 80 mg tablet, Take 40 mg by mouth in the morning., Disp: , Rfl: HYDROmorphone (Dilaudid) 2 mg tablet, Pain pump, Disp: , Rfl: hydrOXYzine HCL (Atarax) 50 mg tablet, Take 50 mg by mouth if needed., Disp: , Rfl: lamoTRIgine (LaMICtal) 100 mg tablet, Take 1 tablet by mouth in the morning., Disp: , Rfl: lisinopril 20 mg tablet, Take 20 mg by mouth in the morning., Disp: , Rfl: methotrexate 2.5 mg tablet, Take 10 tablets (25 mg) by mouth once weekly., Disp: 40 tablet, Rfl: 6 metoprolol succinate XL (Toprol-XL) 25 mg 24 hr tablet, Take 25 mg by mouth in the morning (more content not included)... [facility] 08-26-2023 Miscellaneous Notes RADHA CHAPMAN PT WANTS TO CANCEL APPT SCHEDULED FOR 08/27/2023. PHONED PT AND LM ON TO CONTACT OFFICE IF SHE DOES INDEED WANT TO CANCEL AND RESCHEDULE THIS APPT. documented in this encounter [facility] 08-26-2023 Telephone encounter Note RADHA CHAPMAN PT WANTS TO CANCEL APPT SCHEDULED FOR 08/27/2023. PHONED PT AND LM ON TO CONTACT OFFICE IF SHE DOES INDEED WANT TO CANCEL AND RESCHEDULE THIS APPT. [facility] 08-25-2023 Note [facility] II Continue GDMT- lasix 40 mg daily, and aldactone-- Diuretic therapy Monitor daily weights, I&O, fluid restriction 1.5-2L/day, renal function and electrolytes- [facility] 08-25-2023 Note Hypertension is well controlled Continue lisinopril, toprol, aldactone [facility] 08-25-2023 Note Recommended smoking cessation, she is starting chantix for smoking cessation as prescribed from DR Phan [facility] 08-25-2023 Note Continue lipitor 10 mg daily [facility] 08-25-2023 Note Order echocardiogram to assess cardiac function, RV size and function, Rt sided pressures, and valvular function [facility] 08-25-2023 Note New patient here to establish care. She was seen by [facility] cardiology in Mar 2023. States she has hx of [place] years ago in [place], but denies stents. Has hx of CHF, with last echo being done in Jul 2021 at [facility]. C/o SOB and fatigue. Has had chest pain a couple times, not real bad under left breast. Had labs last month. Review of Systems Constitutional: Positive for malaise/fatigue. Cardiovascular: Positive for chest pain, dyspnea on exertion and leg swelling. Respiratory: Positive for cough, shortness of breath and wheezing. Musculoskeletal: Positive for arthritis, back pain, joint pain and myalgias. Neurological: Positive for light-headedness and numbness. All other systems reviewed and are negative. [facility] 08-25-2023 Note [facility] CARDIOLOGY PROGR ESS NOTE HPI: Radha Mendoza is a 48 y.o. female here as new pt to establish care. HPI 47-year-old female with history of Chronic heart failure with preserved ejection fraction, morbid obesity, hypertension, dyslipidemia, history of chronic tobacco abuse, angiographically normal coronary arteries. New patient here to establish care. She was seen by [facility] cardiology in Mar 2023. States she has hx of [place] years ago in [place], but denies stents. Has hx of CHF, with last echo being done in Jul 2021 at [facility]. C/o SOB and fatigue. Has had chest pain a couple times, not real bad under left breast. Had labs last month. States SOB has worsened over the last 2-3 months and interfers with her activity. Admits to having lymphedema of BLE RT > LT and sometimes wears compression. Review of Systems Constitutional: Positive for malaise/fatigue. Cardiovascular: Positive for chest pain, dyspnea on exertion and leg swelling. Respiratory: Positive for cough, shortness of breath and wheezing. Musculoskeletal: Positive for arthritis, back pain, joint pain and myalgias. Neurological: Positive for light-headedness and numbness. All other systems reviewed and are negative. Past Medical History: Diagnosis Date Angina pectoris [facility] Bipolar disorder, unspecified ([facility]) Cardiomyopathy CHF (congestive heart failure) ([facility]) Chronic back pain COPD (chronic obstructive pulmonary disease) ([facility]) Edema Hypertension Major depressive disorder Migraine headache Morbid obesity ([facility]) Nausea & vomiting Nicotine dependence, cigarettes, uncomplicated Restless leg syndrome Sinus bradycardia Sleep apnea Tobacco abuse Vasovagal syncope Family History Problem Relation Age of Onset Hypothyroidism Mother Brain Tumor Sister Diabetes Maternal Grandfather Social History Socioeconomic History Marital status: Spouse name: Not on file Number of children: Not on file Years of education: Not on file Highest education level: Not on file Occupational History Not on file Tobacco Use Smoking status: Every Day Packs/day: 1.00 Types: Cigarettes Smokeless tobacco: Never Vaping Use Vaping Use: Former Substances: Nicotine Devices: Disposable Substance and Sexual Activity Alcohol use: Yes Comment: rare Drug use: Yes Types: Marijuana Visit Vitals BP 124/66 (BP Location: Right wrist, Patient Position: Sitting) Pulse 67 Ht 1.549 m (5' 1 ) Wt 124 kg (274 lb) SpO2 98% BMI 51.77 kg/m??? Smoking Status Every Day BSA 2.31 m??? Allergies Allergen Reactions Oxytocin Anaphylaxis and Other Adhesive Tape-Silicones Hives Doxycycline Dulaglutide Other reaction(s): Nausea And Vomiting, vomiting Imitrex [Sumatriptan] Morphine Nsaids (Non-Steroidal Anti-Inflammatory Drug) Other kidneys shut down Medications: Current Outpatient Medications on File Prior to Visit Medication Sig Dispense Refill albuterol 90 mcg/actuation inhaler INHALE 2 PUFFS BY MOUTH EVERY 4 HOURS IF NEEDED FOR SHORTNESS OF BREATH atorvastatin (Lipitor) 10 mg tablet Take 10 mg by mouth in the morning. busPIRone (Buspar) 15 mg tablet Take 15 mg by mouth in the morning and at bedtime. cariprazine (Vraylar) 4.5 mg capsule Take 4.5 mg by mouth in the morning. DULoxetine (Cymbalta) [address] capsule Take 60 mg by mouth in the morning. folic acid (Folvite) 1 mg tablet Take 1 tablet (1 mg) by mouth in the morning. 90 tablet 3 furosemide (Lasix) 80 mg tablet Take 40 mg by mouth in the morning. HYDROmorphone (Dilaudid) 2 mg tablet Pain pump hydrOXYzine HCL (Atarax) 50 mg tablet Take 50 mg by mouth if needed. lamoTRIgine (LaMICtal) 100 mg tablet Take 1 tablet by mouth in the morning. lisinopril 20 mg tablet Take 20 mg by mouth in the morning. methotrexate 2.5 mg tablet Take 10 tablets (25 mg) by mouth once weekly. 40 tablet 6 metoprolol succinate XL (Toprol-XL) 25 mg 24 hr tablet Take 25 mg by mouth in the morning. Do not crush or chew. omeprazole (PriLOSEC) [address] capsule Take 20 mg by mouth in the morning. spironolactone (Aldactone) 25 mg tablet Take 25 mg by mouth in the morning. tiZANidine (Zanaflex) 4 mg tablet take 1 tablet by mouth three times a day if needed 15 traZODone (Desyrel) 100 mg tablet take 1 tablet by mouth at bedtime if needed Trelegy Ellipta 200-62.5-25 mcg blister with device INHALE 1 PUFF BY MOUTH ONCE DAILY [DISCONTINUED] cephalexin (Keflex) 500 mg capsule take 1 capsule by mouth four times a day for 7 days [DISCONTINUED] traMADol (Ultram) 50 mg tablet Take by mouth. [DISCONTINUED] Vraylar 3 mg capsule Take 3 mg by mouth in the morning. No current facility-administered medications on file prior to visit. Physical Exam: Constitutional: Appearance: Normal appearance. Without apparent distress, obese HENT: Head: Normocephalic and atraumatic. Nose: Nose normal. Mouth/Throat: Mouth (more content not included)... [facility] 07-30-2023 Note Patient ID: Radha Mendoza is a 48 y.o. female. Therapeutic injection carpal tunnel Date/Time: 07/30/2023 2:38 PM Performed by: Medina Montes MD Authorized by: Medina Montes MD Consent: Consent obtained: Verbal Consent given by: Patient Risks, benefits, and alternatives were discussed: yes Risks discussed: Bleeding and incomplete drainage Alternatives discussed: No treatment [place] protocol: Procedure explained and questions answered to [...] Procedure completion: Tolerated well, no immediate complications [facility] 07-30-2023 Note Attestation signed by Medina Montes [...] COPD/CESARIO on CPAP, tobacco dependence, history of [place], CHF, PTSD, bipolar, anxiety and morbid obesity. [...] orders for this visit: Seronegative rheumatoid arthritis ([facility]) - folic acid (Folvite) 1 mg tablet; Take 1 tablet (1 mg) by mouth in the morning. - methotrexate 2.5 mg tablet; Take 10 tablets (25 mg) by mouth once weekly. 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 year old female with history of bilateral hand and right knee OA status post total knee replacement complicated by cellulitis, lumbar back surgery, migraine headaches, COPD/CESARIO on CPAP, history of [place], CHF, PTSD, bipolar, anxiety and morbid obesity presenting for routine follow up. Seronegative rheumatoid arthritis Long-term use of methotrexate Medication regimen: Methotrexate 25 mg (10 tabs of 2.5 mg) weekly, folate supplementation. *Worsened disease with DAS28 (more content not included)... [facility] 07-27-2023 Note Attestation signed by Medina Montes [...] migraine headaches, COPD/CESARIO on CPAP, history of [place], CHF, PTSD, bipolar, anxiety and morbid obesity [...] migraine headaches, COPD/CESARIO on CPAP, history of [place], CHF, PTSD, bipolar, anxiety and morbid obesity [...] past 36 hour(s)). No follow-ups on file. [facility] 06-01-2023 Evaluation note Encounter Date Diagnosis Assessment [...] your primary care provider in 3-5 days. [employer] Other 11-06-2023 Note Attestation signed by Medina [...] migraine headaches, COPD/CESARIO on CPAP, history of [place], CHF, PTSD, bipolar, anxiety and morbid obesity [...] migraine headaches, COPD/CESARIO on CPAP, history of [place], CHF, PTSD, bipolar, anxiety and morbid obesity [...] Garcia MD Rheumatology Fellow (more content not included)...[facility]09-14-2023 Hospital Discharge instructions* Discharge Instructions* Nichelle Cunha [...] saturates the bandage [facility] Attestation signed by Medina Montes MD [...] migraine headaches, COPD/CESARIO on CPAP, history of [place], CHF, PTSD, bipolar, anxiety and morbid obesity [...] migraine headaches, COPD/CESARIO on CPAP, history of [place], CHF, PTSD, bipolar, anxiety and morbid obesity [...] Patient was seen wi (more content not included)...[facility]05-08-2023 Note Attestation signed by Medina Montes MD [...] migraine headaches, COPD/CESARIO on CPAP, history of [place], CHF, PTSD, bipolar, anxiety and morbid obesity [...] migraine headaches, COPD/CESARIO on CPAP, history of [place], CHF, PTSD, bipolar, anxiety and morbid obesity [...] - encouraged lifestyle modification RTC in 2 allie (more content not included)...[facility] 09-18-2022 NoteOrthopedic Surgery Subjective Chief complaint: Chief [...] CHF (congestive heart failure), NYHA class I ([facility]) Chronic mental illness COPD (chronic obstructive pulmonary disease) ([facility]) Heart attack ([facility]) Neuropathy Objective General [...] of the aforementioned history prepared by the [place] practice provider, and I personally performed the clinical examination of the patient. I discussed the treatment plan with the patient. Peterson Bhatia MDVeter[facility]03-24-2023 Note Attestation signed by Cristina Avalos MD [...] migraine headaches, COPD/CESARIO on CPAP, history of [place], CHF, PTSD, bipolar, anxiety and morbid obesity [...] migraine headaches, COPD/CESARIO on CPAP, history of [place], CHF, PTSD, bipolar, anxiety and morbid obesity referred for evaluation of her chronically elevated inflammatory markers. Seronegative rheumatoid arthritis - polyarthragias of the knees, wrists, hands, hip with 30 minutes of AM pain/stiffness and associated synovitis - prednisone trial aborted due to mood changes - in office [facility] ultrasound showed bilateral mild to moderate synovitis of the wrists - (more content not included)...[facility]03-24-2023 Note Attestation signed by Cristina Avalos MD [...] Mendoza is a 47 y.o. female. Procedures [place] Protocol Documentation for Invasive Procedures List all [...] inflammation. Left Median nerve enlarged 13 mm [facility]02-22-2023 NotePROCEDURE: XR HIPS MARTHA 5V W PELVIS HISTORY: Joint pain COMPARISON: None. FINDINGS: BONES:No fracture, acute abnormality, or significant arthropathy. SOFT TISSUES:No visible soft tissue swelling. EFFUSION:None visible. OTHER: Mechanical fusion and degenerative changes of lower lumbar spine. IMPRESSION: 1. No acute bone abnormality or significant degenerative changes of the hip joints. Electronically authenticated by: GILL MORENO Date: 2022-08-13 10:48[facility]12-07-2022 Miscellaneous Notes* Telephone Encounter - Bandar Romanoheladio - 05/28/2022 2:21 PM EST Pt is being referred by [facility] dx Breast Ca. Per Karina Antunez schedule new pt consult once we have a bxdate. They will call us when it is scheduled. [facility] History of Present illness Narrative* Katy Guo RN - 01/02/2022 9:00 AM EDT Patient did not show for appointment at 9am. Left message to call to reschedule. Dr. Arenas office notified. [facility] [employer] Phone: evaluation note* Diagnosis Irregular menstrual bleeding Irregular menstrual cycle Women's annual routine gynecological examination documented in this encounter [employer] Phone: History general Narrative - Reported* Type [...] pump battery change Hospitalization History see above [employer] Other InstructionsNot on filedocumented in this encounter [employer] System Summary Purpose Family History No Family [...] Care Teams (unrecognized sec tion and content) Market Survey Representative Relationship Specialty Start Date End Date Wally Ghosh MD [address] [place] [address] PCP - General 11/06/21 Market Survey Representative Relationship Specialty Start Date End Date Mingo Thapa [address] [facility] [address] [place] [address] PCP - General Family Medicine 02/19/17 Market Survey Representative Relationship Specialty Start Date End Date Mingo Thapa [address] [facility] [address] [place] [address] PCP - General Family Medicine 02/19/17 Market Survey Representative Relationship Specialty Start Date End Date Donnie Kaminski APRN - FRUIT HARVEST MACHINE OPERATOR [address] [place] [address] PCP - General Nurse Practitioner 02/19/23 Market Survey Representative Relationship Specialty Start Date End Date Wally Ghosh MD [address] [place] [address] PCP - General Internal Medicine 08/08/21 INFORMATION SOURCE (unrecogn ized section and content) DATE CREATED AUTHOR 01/08/2022 [facility] DATE CREATED AUTHOR AUTHOR'S ORGANIZ ATION 03/03/2022 [facility] DATE CREATED AUTHOR AUTHOR'S ORGANIZ ATION 05/02/2022 [facility] [facility] DATE CREATED AUTHOR AUTHOR'S ORGANIZ ATION 05/31/2022 [facility] DATE CREATED AUTHOR AUTHOR'S ORGANIZ ATION 10/29/2022 [facility] DATE CREATED AUTHOR AUTHOR'S ORGANIZ ATION 03/07/2023 [facility] DATE CREATED AUTHOR AUTHOR'S ORGANIZ ATION 07/15/2023 [facility] DATE CREATED AUTHOR AUTHOR'S ORGANIZ ATION 08/25/2023 [facility] dical [facility] DATE CREATED AUTHOR AUTHOR'S ORGANIZ ATION 09/05/2023 [facility] Source Comments (unrecognize d section and content) In the event this informatio n is protected by the Federal Confidentiality of Alcohol and Drug Abuse Patient Records regulations: The Federal rules restrict any use of the information to criminally investigate or prosecute any alcohol or drug abuse patient[facility] the event this information is protected by the Federal Confidentiality of Alcohol and Drug Abuse Patient Records regulations: The Federal rules restrict any use of the information to criminally investigate or prosecute any alcohol or drug abuse patient.[facility] Reason for Visit (unrecogniz ed section and content) Reason Comments Appointment Specialty Diagnoses / Procedures Referred By Adriana t Referred To Contact Diagnoses Post laminectomy syndrome Post laminectomy syndrome [M96.1] Procedures [place] IMPLTJ/RPLCMT ITHCL/EDRL DRUG NFS PRGRBL PUMP INTERTHECAL PAIN PUMP REPLACEMENT Mohit Dejesus MD [address] [place] [address] [facility] [address] [place] [address] Referral ID Status Reason Start Date Expiration Date Visits Re quested Visits Authorized [id number] 1 1 Scheduled Active and Recently Administ [...] (New Bag - Prov ider: Gunjan East, BRENDA - DIVISIONAL HUMAN RESOURCES DIRECTOR - Comment: given over 1 hr) Continuous [...] Pre-op (day of surgery) bupivacaine-EPINEPHrine (MARCAINE-w/EPINEPHRINE) 0.5% -1:[id number] 30 mL, lidocaine 1 % 40 mL [...] dose, Starting on Thu03/06/23 at 0000, Until Thu03/07/23 at 0000, IV start, Pre-op (day of surgery) ondansetron (ZOFRAN) injection 4 mg 4 mg, IntraVENous, ONCE PRN, 1 dose, Starting on Thu03/05/23 at 1540, Until Thu03/06/23 at 1540, Nausea, PACU only oxyCODONE (ROXICODONE) immediate release tablet 5 mg 5 mg, Oral, ONCE PRN, 1 dose, Starting on Thu03/05/23 at 1540, Until Thu03/06/23 at 1540, Pain Moderate (4-6), Pain Severe (7-10), PHASE II, PACU only sodium chloride flush 0.9 % injection 5-40 mL 5-40 mL, IntraVENous, PRN, Starting on Thu03/05/23 at 1255, Until Discontinued, Line Care, After [...] BE BASED ON THE PRIMARY CLINICAL RECORDS. [employer] provides no warranty or guarantee of the accuracy or completeness of information in this document.
[2023-09-07 01:50] VITALS: BP 141/96; PULSE 84; RESP 20; TEMP 37.1; O2SAT 99; BMI 54.0
[2023-09-07 01:52] VITALS: PULSE 80
--- NOTE | 2023-09-07 02:05 | XR_ITS ---
The [address] [address] Patient Name: FIDELINA FONTENOT MRN: [id number] date: 1975 Sex: F Assigned Patient Location: ER Current Patient Location: ER Accession/Order Number: [id number] Exam Date: 09/07/2023 02:18 Report Date: 09/07/2023 02:33 At the request of: TRACI CRUZ Procedure: XR chest 1V EXAM: XR chest 1V HISTORY: shortness of breath COMPARISON: Chest radiographs dated 09/02/2023. TECHNIQUE: One view of the chest was obtained. FINDINGS: The cardiac silhouette is enlarged though stable in size. There are right basilar opacities. There is no significant pneumothorax or pleural effusion. No acute osseous abnormality is seen. XR/XR chest 1V IMPRESSION: 1. Stable enlarged cardiac silhouette with right basilar opacities that could represent atelectasis, aspiration changes, and/or pneumonia. Electronically authenticated by: Josie FRAZIER Date: 09/07/2023 02:33
--- NOTE | 2023-09-07 02:05 | ECG_ITS ---
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
[2023-09-07 02:09] VITALS: O2SAT 99
--- NOTE | 2023-09-07 02:12 | ED.GENADUL1 ---
HPI - General Adult General Chief complaint: Shortness of Breath/Dyspnea Stated complaint: SOB Time Seen by Provider: 09/07/23 01:55 Source: patient Mode of arrival: walk-in Limitations: no limitations History of Present Illness HPI narrative: Patient presents in the middle of the night for evaluation after 3 days of shortness of breath and weight gain. She denied any fever, chills, cough or cold symptoms. No chest pain or pressure. She said that she weighed herself tonight and had gained 15 pounds in a week and decided to come to the ER for evaluation. Recent blood testing and CXR from 09/03/23 are pre-admission/pre-procedural testing for scheduled hysterectomy next week. She also noted that she has redness and pain - I get chronic cellulitis in the right lower leg. She is not currently on antibiotics. She has not contacted her PCP- [facility] - for these complaints. Related Data Home Medications Medication Instructions Recorded Confirmed albuterol sulfate 90 mcg/actuation 2 inh inhalation Q4H PRN shortness 04/28/23 09/07/23 aerosol inhaler of breath or wheezing atorvastatin 10 mg tablet 10 mg PO DAILY 04/28/23 09/07/23 buspirone 10 mg tablet 10 mg PO DAILY 04/28/23 09/07/23 cariprazine 4.5 mg capsule 4.5 mg PO DAILY 04/28/23 09/07/23 (Vraylar) duloxetine 60 mg capsule,delayed 60 mg PO DAILY 04/28/23 09/07/23 release fluticasone fur. 100 mcg-umeclid 1 inh inhalation Q24H 04/28/23 09/07/23 62.5 mcg-vilant 25 mcg inhalat.powder (Trelegy Ellipta) folic acid 1 mg tablet 1 mg PO DAILY 04/28/23 09/07/23 furosemide 80 mg tablet 40 mg PO DAILY 04/28/23 09/07/23 hydroxyzine pamoate 50 mg capsule 50 mg PO Q8H PRN anxiety 04/28/23 09/07/23 lamotrigine 100 mg tablet 100 mg PO DAILY 04/28/23 09/07/23 lisinopril 20 mg tablet 20 mg PO DAILY 04/28/23 09/07/23 methotrexate sodium 2.5 mg tablet 25 mg PO .weekly 04/28/23 09/07/23 metoprolol succinate 25 mg 25 mg PO DAILY 04/28/23 09/07/23 tablet,extended release 24 hr omeprazole 20 mg capsule,delayed 20 mg PO DAILY 04/28/23 09/07/23 release prazosin 1 mg capsule 1 mg PO DAILY 04/28/23 09/07/23 spironolactone 25 mg tablet 25 mg PO DAILY 04/28/23 09/07/23 tizanidine 4 mg tablet 4 mg PO DAILY PRN muscle spasticity 04/28/23 09/07/23 trazodone 150 mg tablet 150 mg PO DAILY 04/28/23 09/07/23 Previous Rx's Medication Instructions Recorded cephalexin 500 mg capsule 500 mg PO QID 7 days #28 caps 09/07/23 Allergies Allergy/AdvReac Type Severity Reaction Status Date / Time doxycycline Allergy Intermediate Hives Verified 09/07/23 01:54 oxytocin [From Pitocin] Allergy Intermediate Anaphylaxis Verified 09/07/23 01:54 sumatriptan [From Imitrex] Allergy Intermediate Flushing Verified 09/07/23 01:54 dulaglutide [From Trulicity] Allergy Vomiting Verified 09/07/23 01:54 NSAIDS (Non-Steroidal AdvReac renal Verified 09/07/23 01:54 Anti-Inflamma insufficiency PFSH [facility] Medical History (Updated 09/07/23 @ 03:13 by Aamir Pedro) Rheumatoid arthritis ?M06.9 - Rheumatoid arthritis, unspecified (ICD-10) Arthritis ?M19.90 - Unspecified osteoarthritis, unspecified site (ICD-10) Back pain ?M54.9 - Dorsalgia, unspecified (ICD-10) Insomnia ?G47.00 - Insomnia, unspecified (ICD-10) Panic attacks ?F41.0 - Panic disorder [episodic paroxysmal anxiety] (ICD-10) PTSD (post-traumatic stress disorder) ?F43.10 - Post-traumatic stress disorder, unspecified (ICD-10) Depression ?F32.A - Depression, unspecified (ICD-10) Anxiety ?F41.9 - Anxiety disorder, unspecified (ICD-10) Sleep apnea ?G47.30 - Sleep apnea, unspecified (ICD-10) Pneumonia ?J18.9 - Pneumonia, unspecified organism (ICD-10) Bronchitis ?J40 - Bronchitis, not specified as acute or chronic (ICD-10) Asthma ?J45.909 - Unspecified asthma, uncomplicated (ICD-10) Chronic obstructive pulmonary disease ?J44.9 - Chronic obstructive pulmonary disease, unspecified (ICD-10) Pelvic pain ?R10.2 - Pelvic and perineal pain (ICD-10) Abnormal uterine bleeding ?N93.9 - Abnormal uterine and vaginal bleeding, unspecified (ICD-10) Menorrhagia ?N92.0 - Excessive and frequent menstruation with regular cycle (ICD-10) GERD (gastroesophageal reflux disease) ?K21.9 - Gastro-esophageal reflux disease without esophagitis (ICD-10) Left ventricular hypertrophy ?I51.7 - Cardiomegaly (ICD-10) High cholesterol ?E78.00 - Pure hypercholesterolemia, unspecified (ICD-10) Extremity edema ?R60.0 - Localized edema (ICD-10) Congestive heart failure ?I50.9 - Heart failure, unspecified (ICD-10) Myocardial infarction (2019) ?I21.9 - Acute myocardial infarction, unspecified (ICD-10) Hypertension ?I10 - Essential (primary) hypertension (ICD-10) Prediabetes ?R73.03 - Prediabetes (ICD-10) Surgical History (Updated 09/01/23 @ 15:24 by Dina Freeman RN) History of endometrial ablation ?Z98.890 - Other specified postprocedural states (ICD-10) History of cardiac catheterization ?Z98.890 - Other specified postprocedural states (ICD-10) History of tonsillectomy ?Z90.89 - Acquired absence of other organs (ICD-10) History of spinal surgery ?Z98.890 - Other specified postprocedural states (ICD-10) History of dilation and curettage ?Z98.890 - Other specified postprocedural states (ICD-10) History of dilation and curettage ?Z98.890 - Other specified postprocedural states (ICD-10) History of section ?Z98.891 - History of uterine scar from previous surgery (ICD-10) History of section ?Z98.891 - History of uterine scar from previous surgery (ICD-10) History of hernia repair ?Z98.890 - Other specified postprocedural states (ICD-10) ?Z87.19 - Personal history of other diseases of the digestive system (ICD-10) History of spinal surgery ?Z98.890 - Other specified postprocedural states (ICD-10) History of arthroplasty of knee ?Z96.659 - Presence of unspecified artificial knee joint (ICD-10) Family History (Updated 09/02/23 @ 12:52 by Dina Freeman RN) Other Family history of DVT Family history of breast cancer Family history of diabetes mellitus Family history of heart disease Family history of hypertension Family history of myocardial infarction Family history of skin cancer Family history of uterine cancer Social History (Updated 09/02/23 @ 12:53 by Dina Freeman RN) Within the past year, how often did you have a drink containing alcohol: never Score interpretation: A score less than 3 is consistent with normal alcohol consumption. Smoking status: Current every day smoker What tobacco products do you use: cigarettes Cigarettes per day: 30 Years smoked: 30 Smoking pack-years: 45.00 Non-prescribed substance use: cannabis (any form) Non-prescribed substance use details: every night Previous occupational history: [employer] Highest level of school completed/degree received: high school graduate Exam Narrative Exam Narrative: Nurses notes and vital signs reviewed and patient is not hypoxic. afebrile General: Well-appearing and in no apparent distress. Skin: Warm, dry, no pallor noted. Circumferential erythema noted to the right lower leg. Head: Normocephalic, atraumatic. Neck: Supple, non-tender. Eye: Pupils are equal, round and EOMI. No scleral icterus. Cardiovascular: Regular Rate and Rhythm without murmur, gallop or rub. Respiratory: No accessory muscle use or respiratory distress. Lungs are clear to auscultation, no wheezing, rales or rhonchi Musculoskeletal: distal right lower leg circumferential cellulitis. no calf or popliteal tenderness. 1-2+ pitting bilateral lower extremity edema/swelling Neurological: A&O x4. No cranial nerve dysfunction observed. No truncal ataxia. Moves all extremities. Sensation intact. Psychiatric: Cooperative and interactive. Normal mood and affect. Constitutional Vital Signs, click to edit/add: Last Vital Signs Temp 98.8 F 09/07/23 01:50 Pulse 84 09/07/23 01:50 Resp 20 09/07/23 01:50 BP 141/96 H 09/07/23 02:29 Pulse Ox 99 09/07/23 02:09 O2 Del Method Room Air 09/07/23 02:09 Course Vital Signs Vital signs: Vital Signs Temperature 98.8 F 09/07/23 01:50 Pulse Rate 84 09/07/23 01:50 Respiratory Rate 20 09/07/23 01:50 Blood Pressure 141/96 H 09/07/23 01:50 Pulse Oximetry 99 09/07/23 01:50 Oxygen Delivery Method Room Air 09/07/23 01:50 Temperature 98.8 F 09/07/23 01:50 Pulse Rate 84 09/07/23 01:50 Respiratory Rate 20 09/07/23 01:50 Blood Pressure 141/96 H 09/07/23 02:29 Pulse Oximetry 99 09/07/23 02:09 Oxygen Delivery Method Room Air 09/07/23 02:09 Medical Decision Making MDM Narrative Medical decision making narrative: Patient was placed on threat monitoring analyst and EKG obtained. Blood drawn and sent for evaluation. CXR obtained. She was diuresed with 60mg Lasix IV - she takes 40mg Lasix and 25mg Spironolactone orally per day. CBC and BMP normal including renal function. Troponin and BNP normal. CXR with stable cardiomegaly - no acute focal changes. Right basilar opacity likely atelectasis based on exam. Patient informed of findings and was discharged home with recommendation to take antibiotic as prescribed and decrease her salt and fluid intake. PCP for follow up recommended. Lab Data Lab results reviewed: Yes I reviewed the patient's lab results Labs: Lab Results 09/07/23 Range/Units 02:00 WBC 7.8 (4.0-11.0) 10^3/uL RBC 4.24 (4.20-5.40) 10^6/uL Hgb 12.2 (12.0-16.0) g/dL Hct 37.9 (36.0-48.0) % MCV 89.4 (81.0-99.0) fL MCH 28.8 (26.7-34.0) pg MCHC 32.2 (29.9-35.2) g/dL RDW 16.2 H (11.0-15.0) % Plt Count 217 (150-450) 10^3/uL MPV 10.2 (9.5-13.5) fL Neut % (Auto) 63.1 (43.0-75.0) % Lymph % (Auto) 25.9 (20.5-60.0) % [place] % (Auto) 8.5 (1.7-12.0) % Eos % (Auto) 1.7 (0.9-7.0) % Baso % (Auto) 0.5 (0.2-2.0) % Neut # (Auto) 4.9 (1.4-6.5) 10^3/uL Lymph # (Auto) 2.0 (1.2-3.8) 10^3/uL [place] # (Auto) 0.7 (0.3-0.8) 10^3/uL Eos # (Auto) 0.1 (0.0-0.7) 10^3/uL Baso # (Auto) 0.0 (0.0-0.1) 10^3/uL Abs Immat Gran (auto) 0.02 (0.00-0.03) 10^3/uL Imm/Tot Granulo (auto) 0.3 (0.0-0.5) % Sodium 138 (136-145) mmol/L Potassium 3.5 (3.5-5.1) mmol/L Chloride 101 (98-107) mmol/L Carbon Dioxide 28.6 (21.0-32.0) mmol/L Anion Gap 11.9 BUN 9.0 (7.0-18.0) mg/dL Creatinine 0.86 (0.55-1.02) mg/dL Est GFR ( Amer) >60 (>=60) Est GFR (Non-Af Amer) >60 (>=60) BUN/Creatinine Ratio 10.5 Glucose 117 H (74-106) mg/dL Calcium 8.8 (8.5-10.1) mg/dL Troponin I High Sens <4.0 L (4.0-51.3) pg/mL NT-Pro-B Natriuret Pep 64.0 (<=900.0) pg/mL Imaging Data Chest x-ray: Radiologist's impression: ITS Impressions Chest X-Ray 09/07/23 02:05 IMPRESSION: 1. Stable enlarged cardiac silhouette with right basilar opacities that could represent atelectasis, aspiration changes, and/or pneumonia. Electronically authenticated by: Josie FRAZIER Date: 09/07/2023 02:33 ECG Data Attestation: I personally reviewed and interpreted this ECG as follows: Interpretation: EKG interpretation: Emergency Department physician interpretation. Normal sinus rhythm at 80bpm. Normal axis, normal intervals and no ST segment elevation or depression. Discharge Plan Discharge Stand Alone Forms: Portal Instructions Chief Complaint: Shortness of Breath/Dyspnea Clinical Impression: Cellulitis of right lower leg, Edema, peripheral Patient Disposition: Home, Self-Care Time of Disposition Decision: 03:12 Prescriptions / Home Meds: New cephalexin 500 mg capsule 500 mg PO QID 7 Days Qty: 28 0RF No Action albuterol sulfate 90 mcg/actuation HFA aerosol inhaler 2 inh INHALATION Q4H PRN (Reason: shortness of breath or wheezing) atorvastatin 10 mg tablet 10 mg PO DAILY buspirone 10 mg tablet 10 mg PO DAILY Vraylar 4.5 mg capsule 4.5 mg PO DAILY duloxetine 60 mg capsule,delayed release(DR/EC) 60 mg PO DAILY Trelegy Ellipta 100-62.5-25 mcg blister with device 1 inh INHALATION Q24H folic acid 1 mg tablet 1 mg PO DAILY furosemide 80 mg tablet 40 mg PO DAILY hydroxyzine pamoate 50 mg capsule 50 mg PO Q8H PRN (Reason: anxiety) lamotrigine 100 mg tablet 100 mg PO DAILY lisinopril 20 mg tablet 20 mg PO DAILY methotrexate sodium 2.5 mg tablet 25 mg PO .weekly metoprolol succinate 25 mg tablet extended release 24 hr 25 mg PO DAILY omeprazole 20 mg capsule,delayed release(DR/EC) 20 mg PO DAILY prazosin 1 mg capsule 1 mg PO DAILY spironolactone 25 mg tablet 25 mg PO DAILY tizanidine 4 mg tablet 4 mg PO DAILY PRN (Reason: muscle spasticity) trazodone 150 mg tablet 150 mg PO DAILY Instructions: Cellulitis (ED), Leg Edema (ED), Low-Sodium Diet (ED) Referrals: ABRAM GALDAMEZ APRN [Primary Care Provider] - 1 week
[2023-09-07 02:17] LABS: Basophils Percent Auto 0.5 % (0.2-2.0); Eosinophils Absolute Auto 0.1 10^3/uL (0.0-0.7); Eosinophils Percent Auto 1.7 % (0.9-7.0); Hematocrit 37.9 % (36.0-48.0); Hemoglobin 12.2 g/dL (12.0-16.0); Immature Granulocytes Abs Auto 0.02 10^3/uL (0.00-0.03); Immature Granulocytes Pct Auto 0.3 % (0.0-0.5); Lymphocytes Percent Auto 25.9 % (20.5-60.0); Mean Corpuscular HGB Conc 32.2 g/dL (29.9-35.2); Mean Corpuscular Hemoglobin 28.8 pg (26.7-34.0); Mean Corpuscular Volume 89.4 fL (81.0-99.0); Mean Platelet Volume 10.2 fL (9.5-13.5); Monocytes Absolute Auto 0.7 10^3/uL (0.3-0.8); Monocytes Percent Auto 8.5 % (1.7-12.0); Neutrophils Absolute Auto 4.9 10^3/uL (1.4-6.5); Neutrophils Percent Auto 63.1 % (43.0-75.0); Platelet Count 217 10^3/uL (150-450); Red Blood Count 4.24 10^6/uL (4.20-5.40); Red Cell Distribution Width 16.2 % (11.0-15.0); White Blood Count 7.8 10^3/uL (4.0-11.0)
[2023-09-07 02:29] VITALS: BP 141/96
[2023-09-07] MEDS: FUROSEMIDE 40 MG/4 ML VIAL 60 MG IVP (02:29)
[2023-09-07] MEDS: CEFAZOLIN SODIUM/DEXTROSE,ISO 1 GM/50 ML IV.SOLN IV (02:29)
[2023-09-07 02:36] LABS: Anion Gap 11.9; BUN Creatinine Ratio 10.5; Calcium 8.8 mg/dL (8.5-10.1); Carbon Dioxide 28.6 mmol/L (21.0-32.0); Chloride 101 mmol/L (98-107); Estimated GFR (African America >60 (>=60); Estimated GFR (Non-African Ame >60 (>=60); Glucose 117 mg/dL (74-106); Potassium 3.5 mmol/L (3.5-5.1); Sodium 138 mmol/L (136-145); Troponin I High Sensitivity <4.0 pg/mL (4.0-51.3)
[2023-09-07 03:25] VITALS: BP 136/82; PULSE 82; RESP 16; O2SAT 99
== END 2023-09-07 03:25 | disposition home or self-care (01) ==
PROVIDERS: Emergency Provider Emergency Medicine; PCP Nurse Practitioner Primary Care
DX: L03.115 Cellulitis of right lower limb (principal); R60.9 Edema, unspecified; I11.0 Hypertensive heart disease with heart failure; I50.41 Acute combined systolic (congestive) and diastolic (congestive) heart failure; R06.09 Other forms of dyspnea; Z79.899 Other long term (current) drug therapy; M06.9 Rheumatoid arthritis, unspecified; M19.90 Unspecified osteoarthritis, unspecified site; G47.00 Insomnia, unspecified; F41.0 Panic disorder [episodic paroxysmal anxiety]; F43.10 Post-traumatic stress disorder, unspecified; F32.A Depression, unspecified; F41.9 Anxiety disorder, unspecified; Z87.01 Personal history of pneumonia (recurrent); J44.9 Chronic obstructive pulmonary disease, unspecified; K21.9 Gastro-esophageal reflux disease without esophagitis; E78.00 Pure hypercholesterolemia, unspecified; I25.2 Old myocardial infarction; R73.03 Prediabetes; Z98.890 Other specified postprocedural states; Z90.89 Acquired absence of other organs; Z98.891 History of uterine scar from previous surgery; Z96.659 Presence of unspecified artificial knee joint; F17.210 Nicotine dependence, cigarettes, uncomplicated
CPT/HCPCS: 36415; 71045; 80048; 83880; 84484; 85025; 93005; 93306; 96374; 96375; 99285

== ENCOUNTER 2023-09-07 12:37 | Outpatient (OUT) | payer MEDICARE, SELFPAY ==
--- OUTSIDE RECORDS SUMMARY | 2023-09-07 12:53 | XMS_ITS | CCD ---
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, [facility] Primary Care Provi orly MOHIT DEJESUS Admitting Unavailable WMMOHIT N Attending Unavailable [facility] Unavailable WM, MOHIT N Referring Unavailable SHAMMO, [facility] Primary Care Unavailable Franklin, Kayla Unavailable ALIS [...] sources) Doxycycline; Translations: [DOXYCYCLINE] Drug Allergy 7 [facility] [employer] (6 sources) Oxytocin; Translations: [OXYTOCIN] Drug Allergy 4 Anaphylaxis [employer] Work Phone: (5 sources) SUMAtriptan; Translations: [SUMATRIPTAN] Drug Allergy 7 Other (See Comments) [employer] Work Phone: (1 source) Desonide Drug Allergy 1 [facility] Repository (3 sources) Doxycycline Drug Allergy 0 [facility] Repository (4 sources) Morphine; Translations: [MORPHINE] Drug Allergy 7 [facility] Repository (4 sources) NSAIDs; Translations: [NSAIDS (NON-STEROIDAL ANTI-INFLAMMATO RY DRUG)] Drug allergy (disorder) 0 [facility] Repository (2 sources) Oxytocin Drug Allergy 0 Unknown [facility] Repository (4 sources) Plasmin Drug Allergy 9 Unknown [facility] Repository (3 sources) Doxycycline Drug Allergy 7 [facility] (4 sources) Non-steroidal anti-inflammato ry agent Drug Allergy 7 Other: See Comments [facility] (3 sources) SUMAtriptan Drug Allergy 7 Other: See Comments [facility] (2 sources) Oxytocin Drug Allergy 6 The [facility] Repository (3 sources) dulaglutide; Translations: [DULAGLUTIDE] Drug Allergy 3 Nausea And Vomiting [facility] [place] (1 source) dulaglutide Drug Allergy vomiting cocone Other (1 source) ADHESIVE TAPE-SILICONES; Translations: [ADHESIVE TAPE-SILICONES] Propensity to adverse reactions to drug (disorder) 12-19-201 4 [facility] Repository Medications Current Medications Medication Drug Class(es) [...] by mouth every 6 hours as needed. [id number] 200 actuat albuterol 0.09 mg/actuat metered dose inhaler (3 sources) beta2-Adrenergic Agonist Start: 05-16-2022 take 2 puff(s) by mouth every four hours albuterol HFA (PROVENTIL HFA, VENTOLIN HFA) 90 mcg/actuation inhaler INHALE 2 PUFFS BY MOUTH EVERY 4 HOURS IF NEEDED FOR SHORTNESS OF BREATH 0 05/16/2022 Active Start: 08-09-2021 take 2 puff(s) by mo [facility] every four hours as needed albuterol sulfate HFA 108 (90 Base) MCG/ACT inhaler INHALE 2 PUFFS BY MOUTH EVERY 4 HOURS NEEDED 0 08/09/2021 Active Comment on above: INHALE 2 PUFFS BY MO [facility] EVERY 4 HOURS IF NEEDED FOR [...] Comment on above: [facility]. brexpiprazole 2 mg oral tablet [...] to affected area three times daily. 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 Will need instructions from her upholstery instructor regarding holding her methotrexate before and after surgery. Encouraged her to take what ever time she would like to decide, though patient reports she would like to proceed as soon as possible. Normal [facility] [address] Dr. Arias case. Dx: Degenerative lumbar stenosis, lumbar spondylolisthesis. Procedure: Removal of L4-S1 hardware, laminectomy L2-L3, posterior instrumented fusion L2-L4. Time: 5 hours. Position: prone on open Johnny. Needs: [employer] rep, O arm, universal removal set, Stealth. Needs PCP clearance and pulm clearance--has new PCP, same office; pulm is Dr. Elizabeth Phan in [place]. Will need to check with her upholstery instructor Dr. Estrada here to see if her methotrexate needs to be held before or after surgery. Will need CT lumbar prior to surgery to evaluated bone fusion-- I will order this. Will need bone stimulator after surgery--will order. Thank you. Normal [facility] Telephoneon 09-04-2023 Telephone [id number] Jackie Mendoza 1975 Date Provider Department Center 09/04/2023 148-[place], [facility] SURG Second Fl Family History Problem Relation Age of Onset Coronary artery disease Mother No Known Problems Father Family Status - Relation Status Age at Mother Notes: cancer brast ca, ovarian, skin, heart disease Father Normal [facility] Consulton 09-03-2023 Consult [id number] Jackie Mendoza 1975 Provider Department Center 09/03/2023 148-MARY, [facility] SURG Second Fl Family History Problem Relation Age of Onset Coronary artery disease Mother No Known Problems Father Family Status - Relation Status Age at Mother Notes: cancer brast ca, ovarian, skin, heart disease Father Level of Service:59736 NC OFFICE/OUTPATIENT NEW MODERATE MDM 45 MINUTES Reason for Visit and Comments: Consult [484] - Pt is here for a CO visit for Failed Back Syndrome. Normal [facility] Office Visiton 08-25-2023 Follow-up visit [id number] Jackie Mendoza 1975 Provider Department Center 08/25/2023 Jaciel-KOFI BETTS [facility] Family History Problem Relation Age of Onset Coronary artery disease Mother No Known Problems Father Family Status - Relation Status Age at Mother Notes: cancer brast ca, ovarian, skin, heart disease Father Level of Service:40436 NC OFFICE/OUTPATIENT NEW MODERATE MDM 45 MINUTES Normal [facility] Follow-Upon 07-30-2023 Follow-Up [id number] Jackie Mendoza 1975 Provider Department Center 07/30/2023 Patricia-MEDINA MONTES [facility] RHEUM Nila Heal Family History Problem Relation Age of Onset No Known Problems Father Family Status - Relation Status Age at Mother Notes: cancer brast ca, ovarian, skin, heart disease Father Level of Service:83589 NC OFFICE/OUTPATIENT ESTABLISHED MOD MDM 30 MIN () Reason for Visit and Comments: Follow-up [[id number]] [facility] 36on 07-28-2023 36 Letter will be at Check out Desk [facility] 36 Pt contacted, requested to pick letter up on 07/30/23 at her appointment [facility] 36on 07-27-2023 36 Pt is asking if it i s possible for her to have a note for work that excuses her on 07/23/23, 07/24/23 and 07/27/23; because of the great pain she has experienced. Normal [facility] CBC WITH AUTO DIFFERENTIALon 07-27-2023 Basophils (Bld) [#/Vol] 0.07 10*3/uL Normal 0.00-0.20 [facility] Comment on above: Performed By: #### L [id number] ####[facility] (BEAKER)[address] [facility] [place] [address] Basophils/100 WBC (Bld) 0.8 % Normal 0.0-1.0 [facility] Comment on above: Performed By: #### L [id number] ####[facility] (BEAKER)[address] [place] [address] Eosinophils (Bld) [#/Vol] 0.10 10*3/uL Normal 0.00-0.50 [facility] Comment on above: Performed By: #### L [id number] ####[facility] (BEAKER)[address] [place] [address] Eosinophils/100 WBC (Bld) 1.2 % Normal 0.0-6.0 [facility] Comment on above: Performed By: #### L [id number] ####[facility] (BEAKER)[address] [facility] [place] [address] Erythrocyte distribution width (RBC) [Ratio] 15.9 % High 11.5-15.0 [facility] Comment on above: Performed By: #### L [id number] ####[facility] (BEAKER)[address] [place] [address] ERYTHROCYTE MEAN CORPUSCULAR HEMOGLOBIN CONCENTRATION (G/DL) BY AUTOMATED 32.8 g/dL Normal 32.0-35.0 [facility] Comment on above: Performed By: #### L [id number] ####[facility] ([facility] [place] [address] Hematocrit (Bld) [Volume fraction] 41.5 % Normal 36.0-48.0 [facility] Comment on above: Performed By: #### L [id number] ####[facility] ([facility] [place] [address] Hemoglobin (Bld) [Mass/Vol] 13.6 g/dL Normal 12.0-15.0 [facility] Comment on above: Performed By: #### L [id number] ####[facility] ([facility])[address] [place] [address] Immature granulocytes (Bld) [#/Vol] 0.02 10*3/uL Normal 0.00-0.20 [facility] Comment on above: Performed By: #### L [id number] ####[facility] (BEAKER)[address] [place] [address] Immature granulocytes/100 WBC (Bld) 0.2 % Normal 0.0-1.0 [facility] Comment on above: Performed By: #### L [id number] ####[facility] (BEAKER)[address] [place] [address] Lymphocytes (Bld) [#/Vol] 1.89 10*3/uL Normal 1.20-4.00 [facility] Comment on above: Performed By: #### L [id number] ####[facility] (BEAKER)[address] [place] [address] Lymphocytes/100 WBC (Bld) 22.5 % Normal 20.0-45.0 [facility] Comment on above: Performed By: #### L [id number] ####[facility] (BEAKER)[address] [place] [address] MCH (RBC) [Entitic mass] 28.8 pg Normal 27.0-33.0 [facility] Comment on above: Performed By: #### L [id number] ####[facility] ([facility])[address] [place] [address] MCV (RBC) [Entitic vol] 87.7 fL Normal 82.0-98.0 [facility] Comment on above: Performed By: #### L [id number] ####[facility] ([facility])[address] [place] [address] Monocytes (Bld) [#/Vol] 0.61 10*3/uL Normal 0.10-1.00 [facility] Comment on above: Performed By: #### L [id number] ####[facility] ([facility])[address] [place] [address] Monocytes/100 WBC (Bld) 7.3 % Normal 5.0-12.0 [facility] Comment on above: Performed By: #### L [id number] ####[facility] ([facility])[address] [place] [address] Neutrophils (Bld) [#/Vol] 5.71 10*3/uL Normal 1.60-7.60 [facility] Comment on above: Performed By: #### L [id number] ####[facility] ([facility])[address] [place] [address] Neutrophils/100 WBC (Bld) 68.0 % Normal 40.0-72.0 [facility] Comment on above: Performed By: #### L [id number] ####[facility] ([facility])[address] [place] [address] NRBC (PER 100 WBCS) BY AUTOMATED COUNT 0.0 % Normal 0 [facility] Comment on above: Performed By: #### L [id number] ####[facility] ([facility])[address] [place] [address] PLATELETS (10*3/UL) IN BLOOD AUTOMATED COUNT 240 10*3/uL Normal 150-400 [facility] Comment on above: Performed By: #### L [id number] ####[facility] ([facility])[address] [place] [address] RBC (Bld) [#/Vol] 4.73 10*6/uL Normal 3.80-5.00 [facility] Comment on above: Performed By: #### L [id number] ####[facility] ([facility])[address] [place] [address] WBC (Bld) [#/Vol] 8.40 10*3/uL Normal 4.00-10.60 [facility] Comment on above: Performed By: #### L [id number] ####[facility] ([facility])[address] [place] [address] COMPREHENSIVE METABOLIC PANE Jamar 07-27-2023 Albumin [Mass/Vol] 4.3 g/dL Normal 3.5-5.7 [facility] Comment on above: Performed By: #### L [id number] ####[facility] ([facility])[address] [place] [address] ALP [Catalytic activity/Vol] 80 U/L Normal 34-104 [facility] Comment on above: Performed By: #### L [id number] ####[facility] ([facility])[address] [place] [address] ALT [Catalytic activity/Vol] 13 U/L Normal 7-52 [facility] Comment on above: Performed By: #### L [id number] ####[facility] ([facility])[address] [place] [address] Anion gap [Moles/Vol] 11 mmol/L Normal 7-20 [facility] Comment on above: Performed By: #### L [id number] ####[facility] ([facility])[address] [place] [address] AST [Catalytic activity/Vol] 14 U/L Normal 13-39 [facility] Comment on above: Performed By: #### L [id number] ####[facility] ([facility])[address] [place] [address] Bilirubin [Mass/Vol] 0.4 mg/dL Normal 0.3-1.0 [facility] Comment on above: Performed By: #### L [id number] ####[facility] ([facility])[address] [place] [address] Calcium [Mass/Vol] 9.0 mg/dL Normal 8.6-10.3 [facility] Comment on above: Performed By: #### L [id number] ####[facility] ([facility])[address] [place] [address] Chloride [Moles/Vol] 105 mmol/L Normal 98-107 [facility] Comment on above: Performed By: #### L [id number] ####[facility] ([facility])[address] [place] [address] CO2 [Moles/Vol] 26 mmol/L Normal 21-31 [facility] Comment on above: Performed By: #### L [id number] ####[facility] ([facility])[address] [place] [address] Creatinine [Mass/Vol] 0.79 mg/dL Normal 0.60-1.20 [facility] Comment on above: Performed By: #### L [id number] ####[facility] ([facility])[address] [place] [address] GLOMERULAR FILTRATION RATE ML/MIN/1.73 SQ M.PREDICTED 91.1 mL/min/1.73m*2 Normal >60.0 [facility] Comment on above: Result Comment: [facility]???s estimated glomerular filtration rate (eGFR) will no [...] of individuals. Performed By: #### L [id number] ####[facility] ([facility])[address] [place] [address] Glucose [Mass/Vol] 96 mg/dL Normal 70-100 [facility] Comment on above: Performed By: #### L [id number] ####[facility] ([facility])[address] [place] [address] Potassium [Moles/Vol] 3.9 mmol/L Normal 3.5-5.1 [facility] Comment on above: Performed By: #### L [id number] ####[facility] ([facility])[address] [place] [address] Protein [Mass/Vol] 6.9 g/dL Normal 6.0-8.3 [facility] Comment on above: Performed By: #### L [id number] ####[facility] ([facility])[address] [place] [address] Sodium [Moles/Vol] 138 mmol/L Normal 136-145 [facility] Comment on above: Performed By: #### L [id number] ####[facility] ([facility])[address] [place] [address] Urea nitrogen [Mass/Vol] 14 mg/dL Normal 7-25 [facility] Comment on above: Performed By: #### L [id number] ####[facility] ([facility])[address] [place] [address] UREA NITROGEN/CREATININE (MASS RATIO) IN SER/PLAS 17.7 Normal [facility] Comment on above: Performed By: #### L [id number] ####[facility] ([facility])[address] [place] [address] Follow-Upon 07-27-2023 Follow-Up [id number] Jackie Mendoza 1975 F Date Provider Department Center 07/27/2023 MEDINA HENRY [facility]UM Nila Heal Family History Problem Relation Age of Onset No Known Problems Father Family Status - Relation Status Age at Mother Notes: cancer brast ca, ovarian, skin, heart disease Father Level of Service:20810 NC OFFICE/OUTPATIENT ESTABLISHED MOD MDM 30 MIN (GC) Reason for Visit and Comments: Follow-up [[id number]] Normal [facility] Orders Onlyon 07-27-2023 Orders Only [id number] RejiJackie Omer 1975 F Date Provider Department Center 07/27/2023 JOEY OLIVIER [facility] R[facility]UM Nila Heal Family History Problem Relation Age of Onset No Known Problems Father Family Status - Relation Status Age at Mother Notes: cancer brast ca, ovarian, skin, heart disease Father Normal [facility] DRUG SCREEN, UR-RFLEX CONFIR 07-14-2023 ALCOHOL, UR. Negative Normal (< 10 - Cutof) [facility] Comment on above: Order Comment: FACIL ITY: [facility] [id number] Performed By: #### D S-M+ #### [facility] [address] [facility], [address] AMPHETAMINES, UR. Negative Normal (< 500 - Cutof) [facility] Comment on above: Order Comment: FACIL ITY: [facility] [id number] Performed By: #### D S-M+ #### [facility] [address] [facility], [address] BARBITURATES, UR. Negative Normal (< 300 - Cutof) [facility] Comment on above: Order Comment: FACIL ITY: [facility] [id number] Performed By: #### D S-M+ #### [facility] [address] [facility], [address] BENZODIAZEPINES, UR. Negative Normal (< 100 - Cut[facility]) [facility] Comment on above: Order Comment: FACIL ITY: [facility] [id number] Performed By: #### D S-M+ #### [facility] [address] [facility], [address] COCAINE METAB. UR. Negative Normal (< 150 - Cutof) [facility] Comment on above: Order Comment: FACIL ITY: [facility] [id number] Performed By: #### D S-M+ #### [facility] [address] [place], [address] CREAT, URINE 35.91 MG/DL Normal (20.00 - 320.0) [facility]: [facility] Comment: [facility] [id number] Performed By: #### D S-M+ #### [facility] [address] [place], [address] FENTANYL, UR SCREEN Positive High (< 1.0 - [facility]) [facility] Comment on above: Order Comment: [facility]IL ITY[facility] [id number] Result Comment: FENT ANYL URINE SCREEN = POSITIVE Specimen sent for confirmation testing forfentanyl - [facility] test # [id number] Performed By: #### D S-M+ #### [place] [facility] [address] [place], [address] HEROIN METAB. UR. Negative Normal (< 10 - Cutof) [facility] Comment on above: Order Comment: [facility]ACIL ITY[facility] [id number] Performed By: #### D S-M+ #### [place] [facility] [address] [place], [address] METHADONE METAB. UR. Negative Normal (< 100 - Cutof) [facility] Comment on above: Order Comment: FACIL ITY: [facility] [id number] Performed By: #### D S-M+ #### [facility] [address] [place], [address] OPIATES, UR. Negative Normal (< 100 - Cutof) [facility] Comment on above: Order Comment: FACIL ITY: [facility] [id number] Performed By: #### D S-M+ #### [facility] [address] [place], [address] OXYCODONE, UR. Negative Normal (< 100 - Cutof) [facility] Comment on above: Order Comment: [facility]ACIL ITY[facility] [id number] Performed By: #### D S-M+ #### [facility] [address] [place], [address] pH (U) 5.0 [pH] Normal (5.0 - 9.0) [facility] Comment on above: Order Comment: [facility]ACIL ITY[facility] [id number] Performed By: #### D S-M+ #### [facility] [address] [place], [address] PHENCYCLIDINE, UR. Negative Normal (< 25 - Cutof) [facility] Comment on above: Order Comment: [facility]ACIL ITY[facility] [id number] Performed By: #### D S-M+ #### [place] [facility] [address] [place], [address] THC METABOLITE, UR. Positive High (< 20 - Cutof) [facility] Comment on above: Order Comment: FACIL ITY: [facility] [id number] Result Comment: THC METABOLITE URINE SCREEN = POSITIVE Specimen sent for confirmation testing for THC - [facility] test # [id number] Performed By: #### D S-M+ #### [place] [facility] [address] [place], [address] TRAMADOL, UR SCREEN Negative Normal (< 200 - Cutof) [facility] Comment on above: Order Comment: FACIL ITY: [facility] [id number] Result Comment: This drug testing is for medical treatment only. Analysis was performed as non-forensic testing and the results should be used only by healthcare providers to render diagnosis or treatment, or to monitor the progress of medical conditions. Performed By: #### D S-M+ #### [facility] [address] [place], [address] Follow-Upon 04-27-2023 Follow-Up [id number] Jackie Mendoza 1975 F Date Provider Department Center 04/27/2023 KIM MCDONNELL [facility]UM Nila Heal Family History Problem Relation Age of Onset No Known Problems Father Family Status - Relation Status Age at Mother Notes: cancer brast ca, ovarian, skin, heart disease Father Level of Service:75787 [place] OFFICE/OUTPATIENT ESTABLISHED MOD MDM 30-39 MIN (GC) Reason for Visit and Comments: Follow-up [[id number]] Normal [facility] DRUG SCREEN, UR-RFLEX CONFIR 04-09-2023 ALCOHOL, UR. Negative Normal (< 10 - Cutof) [facility] Comment on above: Order Comment: FACIL ITY: [facility] [id number] Performed By: #### D S-M+ #### [facility] [address] [facility], [address] AMPHETAMINES, UR. Negative Normal (< 500 - Cutof) [facility] Comment on above: Order Comment: FACIL ITY: [facility] [id number] Performed By: #### D S-M+ #### [facility] [address] [facility], [address] BARBITURATES, UR. Negative Normal (< 300 - Cutof) [facility] Comment on above: Order Comment: FACIL ITY: [facility] [id number] Performed By: #### D S-M+ #### [facility] [address] [facility], [address] BENZODIAZEPINES, UR. Negative Normal (< 100 - Cutof) [facility] Comment on above: Order Comment: FACIL ITY: [facility] [id number] Performed By: #### D S-M+ #### [facility] [address] [facility], [address] COCAINE METAB. UR. Negative Normal (< 150 - Cutof) [facility] Comment on above: Order Comment: FACIL ITY: [facility] [id number] Performed By: #### D S-M+ #### [facility] [address] [place], [address] CREAT, URINE 27.04 MG/DL Normal (20.00 - 320.0) [facility] Comment on above: Order Comment: FACIL ITY: [facility] [id number] Performed By: #### Ari S-M+ #### [facility] [address] [place], [address] FENTANYL, UR SCREEN Negative Normal (< 1.0 - Cutof) [facility] Comment on above: Order Comment: FACIL ITY: [facility] [id number] Performed By: #### Ari S-M+ #### [facility] [address] [place], [address] HEROIN METAB. UR. Negative Normal (< 10 - Cutof) [facility] Comment on above: Order Comment: FACIL ITY: [facility] [id number] Performed By: #### Ari S-M+ #### [facility] [address] [place], [address] METHADONE METAB. UR. Negative Normal (< 100 - Cutof) [facility] Comment on above: Order Comment: FACIL ITY: [facility] [id number] Performed By: #### Ari S-M+ #### [facility] [address] [place], [address] OPIATES, UR. Negative Normal (< 100 - Cutof) [facility] Comment on above: Order Comment: FACIL ITY: [facility] [id number] Performed By: #### D S-M+ #### [facility] [address] [place], [address] OXYCODONE, UR. Negative Normal (< 100 - Cutof) [facility] Comment on above: Order Comment: FACIL ITY: [facility] [id number] Performed By: #### D S-M+ #### [facility] [address] [place], [address] pH (U) 7.0 [pH] Normal (5.0 - 9.0) [facility] Comment on above: Order Comment: FACIL ITY: [facility] [id number] Performed By: #### D S-M+ #### [facility] [address] [place], [address] PHENCYCLIDINE, UR. Negative Normal (< 25 - Cutof) [facility] Comment on above: Order Comment: FACIL ITY: [facility] [id number] Performed By: #### D S-M+ #### [facility] [address] [place], [address] THC METABOLITE, UR. Positive High (< 20 - Cutof) [facility] Comment on above: Order Comment: FACIL ITY: [facility] [id number] Result Comment: THC METABOLITE URINE SCREEN = POSITIVE Specimen sent for confirmation testing for THC - [facility] test # [id number] Performed By: #### D S-M+ #### [facility] [address] [place], [address] TRAMADOL, UR SCREEN Negative Normal (< 200 - Cutof) [facility] Comment on above: Order Comment: FACIL ITY: [facility] [id number] Result Comment: This drug testing is for medical treatment only. Analysis was performed as non-forensic testing and the results should be used only by healthcare providers to render diagnosis or treatment, or to monitor the progress of medical conditions. Performed By: #### D S-M+ #### [facility] [address] [place], [address] CBCon 03-05-2023 Erythrocyte distribution width (RBC) [Ratio] 15.0 % High 11.8-14.4 [facility] Comment on above: Performed By: #### C BC #### [facility] [address] [facility] [place] [address] Fire Boss: Harjit Flores MD Hematocrit (Bld) [Volume fraction] 39.9 % Normal 36.3-47.1 [facility] Comment on above: Performed By: #### C BC #### [facility] [facility] [place] [address] Fire Boss: Harjit Flores MD Hemoglobin (Bld) [Mass/Vol] 13.2 g/dL Normal 11.9-15.1 [facility] Comment on above: Performed By: #### C BC #### [facility] [address] [place] [address]. [place] [address] Fire Boss: Harjit Flores MD MCH (RBC) [Entitic mass] 29.9 pg Normal 25.2-33.5 [facility] Comment on above: Performed By: #### C BC #### [facility] [address] [place] [address]. [place] [address] Fire Boss: Harjit Flores MD MCHC (RBC) [Mass/Vol] 33.1 g/dL Normal 28.4-34.8 [facility] Comment on above: Performed By: #### C BC #### [facility] [address] [place] [address]. [place] [address] Fire Boss: Harjit Flores MD MCV (RBC) [Entitic vol] 90.3 fL Normal 82.6-102.9 [facility] Comment on above: Performed By: #### C BC #### [facility] [address] [place] [address]. [place] [address] Fire Boss: Harjit Flores MD NRBC Automated 0.0 per 100 WBC Normal 0.0 [facility] Comment on above: Performed By: #### C BC #### [facility] [address] [place] [address] Fire Boss: Harjit Flores MD Platelet mean volume (Bld) [Entitic vol] 10.4 fL Normal 8.1-13.5 [facility] Comment on above: Performed By: #### C BC #### [facility] [address] [facility] [place] [address] Fire Boss: Harjit Flores MD Platelets (Bld) [#/Vol] 209 10*3/uL Normal 138-453 [facility] Comment on above: Performed By: #### C BC #### [facility] [place] [address] Fire Boss: Harjit Flores MD RBC (Bld) [#/Vol] 4.42 10*6/uL Normal 3.95-5.11 [facility] Comment on above: Performed By: #### C BC #### [facility] [facility] [place] [address] Fire Boss: Harjit Flores MD WBC (Bld) [#/Vol] 7.1 10*3/uL Normal 3.5-11.3 [facility] Comment on above: Performed By: #### C BC #### [facility] [place] [address] Fire Boss: Harjit Flores MD Erythrocyte distribution width (RBC) [Ratio] 15.0 % High 11.8 - 14.4 % [facility] Hematocrit (Bld) [Volume fraction] 39.9 % 36.3 - 47.1 % [facility] Hemoglobin (Bld) [Mass/Vol] 13.2 g/dL 11.9 - 15.1 g/dL [facility] Interpretation and review of laboratory results Abnormal [facility] MCH (RBC) [Entitic mass] 29.9 pg 25.2 - 33.5 pg [facility] MCHC (RBC) [Mass/Vol] 33.1 g/dL 28.4 - 34.8 g/dL [facility] MCV (RBC) [Entitic vol] 90.3 fL 82.6 - 102.9 fL [facility] Nucleated RBC/100 WBC (Bld) [Ratio] 0.0 % 0.0 per 100 WBC [facility] Platelet mean volume (Bld) [Entitic vol] 10.4 fL 8.1 - 13.5 fL [facility] Platelets (Bld) [#/Vol] 209 10*3/uL [facility] RBC (Bld) [#/Vol] 4.42 10*6/uL 3.95 - 5.1 1 m/uL [facility] WBC other (Bld) [#/Vol] 7.1 [facility] POCT urine pregnancyon 03-05 Beta HCG ( test) Ql (U) Negative NEGATIVE [facility] Comment on above: Specimens with hCG l evels near the threshold of the test (25 mIU/mL) may give a negative or indeterminate result. In such cases, another test should be performed with a new specimen in 48-72 hours. If early is suspected clinically in this setting, correlation with quantitative serum b-hCG level is suggested. [facility] Basic Metabolic Profon 02-19 Anion gap [Moles/Vol] 10 mmol/L Normal - [facility] Comment on above: Performed By: #### G LYHGB #### [facility] [employer] [address] [place] [address] Fire Boss: Saw Elizondo MD #### BMP #### [facility] [address] [place], [place] [id number] Fire Boss: Harjit Flores MD BUN/CRE Ratio 14 Normal - [facility] Comment on above: Performed By: #### G LYHGB #### [facility] [employer] [address] [place] [address] Fire Boss: Saw Elizondo MD #### BMP #### [facility] [address] [place] [address] Fire Boss: Harjit Flores MD Calcium [Mass/Vol] 9.3 mg/dL Normal 8.6-10.4 [facility] Comment on above: Performed By: #### G LYHGB #### [address] [address] Fire Boss: Saw Elizondo MD #### BMP #### [facility] [address] [place] [address] Fire Boss: Harjit Flores MD Chloride [Moles/Vol] 103 mmol/L Normal 98-107 [facility] Comment on above: Performed By: #### G LYHGB #### [address] [address] Fire Boss: Saw Elizondo MD #### BMP #### [facility] [address] [place] [address] Fire Boss: Harjit Flores MD CO2 [Moles/Vol] 24 mmol/L Normal 20-31 [facility] Comment on above: Performed By: #### G LYHGB #### [address] [address] Fire Boss: Saw Elizondo MD #### BMP #### [facility] [address] [place] [address] Fire Boss: Harjit Flores MD Creatinine [Mass/Vol] 0.8 mg/dL Normal 0.5-0.9 [facility] Comment on above: Performed By: #### G LYHGB #### [address] [address] Fire Boss: Saw Elizondo MD #### BMP #### [facility] [address] [place], [place] [id number] Fire Boss: Harjit Flores MD GFR/1.73 sq M.predicted among non-blacks MDRD (S/P/Bld) [Vol rate/Area] mL/min/{1.73_m2} Normal >60 [facility] Comment on above: Result Comment: These [...] secretion. Performed By: #### G LYHGB #### [address] [id number] Fire Boss: Saw Elizondo MD #### BMP #### [facility] [address] [place], [place] [id number] Fire Boss: Harjit Flores MD Glucose [Mass/Vol] 126 mg/dL High 70-99 [facility] Comment on above: Performed By: #### G LYHGB #### [address] [id number] Fire Boss: Saw Elizondo MD #### BMP #### [facility] [address] [place] [address] Fire Boss: Harjit Flores MD Potassium [Moles/Vol] 4.0 mmol/L Normal 3.7-5.3 [facility] Comment on above: Performed By: #### G LYHGB #### [address] [address] Fire Boss: Saw Elizondo MD #### BMP #### [facility] [address] [place] [address] Fire Boss: Harjit Flores MD Sodium [Moles/Vol] 137 mmol/L Normal 135-144 [facility] Comment on above: Performed By: #### G LYHGB #### [address] [address] Fire Boss: Saw Elizondo MD #### BMP #### [facility] [address] [place] [address] Fire Boss: Harjit Flores MD Urea nitrogen [Mass/Vol] 11 mg/dL Normal 6-20 [facility] Comment on above: Performed By: #### G LYHGB #### [address] [address] Fire Boss: Saw Elizondo MD #### BMP #### [facility] [address] [place] [address] Fire Boss: Harjit Flores MD [facility] 02-19-2023 Erythrocyte distribution width (RBC) [Ratio] 15.0 % High 11.8-14.4 [facility] Comment on above: Performed By: #### C BC #### [facility] [address] [place] [address] Fire Boss: Harjit Flores MD Hematocrit (Bld) [Volume fraction] 40.2 % Normal 36.3-47.1 [facility] Comment on above: Performed By: #### C BC #### [facility] [address] [place] [address] Fire Boss: Harjit Flores MD Hemoglobin (Bld) [Mass/Vol] 13.3 g/dL Normal 11.9-15.1 [facility] Comment on above: Performed By: #### C BC #### [facility] [address] [place] [facility] [place] [address] Fire Boss: Harjit Flores MD MCH (RBC) [Entitic mass] 29.6 pg Normal 25.2-33.5 [facility] Comment on above: Performed By: #### C BC #### [facility] [facility] [place] [address] Fire Boss: Harjit Flores MD MCHC (RBC) [Mass/Vol] 33.1 g/dL Normal 28.4-34.8 [facility] Comment on above: Performed By: #### C BC #### [facility] [facility] [place] [address] Fire Boss: Harjit Flores MD MCV (RBC) [Entitic vol] 89.3 fL Normal 82.6-102.9 [facility] Comment on above: Performed By: #### C BC #### [facility] [facility] [place] [address] Fire Boss: Harjit Flores MD NRBC Automated 0.0 per 100 WBC Normal 0.0 [facility] Comment on above: Performed By: #### C BC #### [facility] [address] [place] [address]. [place] [address] Fire Boss: Harjit Flores MD Platelet mean volume (Bld) [Entitic vol] 9.9 fL Normal 8.1-13.5 [facility] Comment on above: Performed By: #### C BC #### [facility] [facility] [place] [address] Fire Boss: Harjit Flores MD Platelets (Bld) [#/Vol] 237 10*3/uL Normal 138-453 [facility] Comment on above: Performed By: #### C BC #### [facility] [address] [facility] [place] [address] Fire Boss: Harjit Flores MD RBC (Bld) [#/Vol] 4.50 10*6/uL Normal 3.95-5.11 [facility] Comment on above: Performed By: #### C BC #### [facility] [address] [facility] [place] [address] Fire Boss: Harjit Flores MD WBC (Bld) [#/Vol] 9.6 10*3/uL Normal 3.5-11.3 [facility] Comment on above: Performed By: #### C BC #### [facility] [address] [facility] [place] [address] Fire Boss: Harjit Flores MD Hemoglobin A1Con 02-19-2023 Glucose [Mass/Vol] 123 mg/dL Normal [facility] Comment on above: Result Comment: The ADA and AACC recommend providing the estimated average glucose result to permit better patient understanding of their HBA1c result. Performed By: #### G LYHGB #### [address] [address] Fire Boss: Saw Elizondo MD #### BMP #### [facility] [address] [place] [address] Fire Boss: Harjit Flores MD HbA1c (Bld) [Mass fraction] 5.9 % Normal 4.0-6.0 [facility] Comment on above: Performed By: #### G LYHGB #### [address] [address] Fire Boss: Saw Elizondo MD #### BMP #### [facility] [address] [facility] [place] [address] Fire Boss: Harjit Flores MD Follow-Upon 01-12-2023 Follow-Up [id number] Jackie Mendoza 1975 F Date Provider Department Center 01/12/2023 KIM MCDONNELL [facility] RHEUM Nila Heal Family History Problem Relation Age of Onset No Known Problems Father Family Status - Relation Status Age at Mother Notes: cancer brast ca, ovarian, skin, heart disease Father Level of Service:76106 NC OFFICE/OUTPATIENT ESTABLISHED MOD MDM 30-39 MIN Reason for Visit and Comments: Follow-up [942824] Normal [facility] DRUG SCREEN, UR-RFLEX CONFIR 01-06-2023 ALCOHOL, UR. Negative Normal (< 10 - Cutof) [facility] Comment on above: Order Comment: FACIL ITY: [facility] [id number] Performed By: #### D S-M+ #### [facility] [address] [facility], [address] AMPHETAMINES, UR. Negative Normal (< 500 - Cutof) [facility] Comment on above: Order Comment: FACIL ITY: [facility] [id number] Performed By: #### D S-M+ #### [facility] [address] [facility], [address] BARBITURATES, UR. Negative Normal (< 300 - Cutof) [facility] Comment on above: Order Comment: FACIL ITY: [facility] [id number] Performed By: #### D S-M+ #### [facility] [address] [facility], [address] BENZODIAZEPINES, UR. Positive High (< 100 - Cutof) [facility] Comment on above: Order Comment: FACIL ITY: [facility] [id number] Result Comment: AAKASH ODIAZEPINES URINE SCREEN = POSITIVE Specimen sent for confirmation testing for benzodiazepines - [facility] test # [id number] Performed By: #### D S-M+ #### [facility] [address] [facility], [address] COCAINE METAB. UR. Negative Normal (< 150 - Cutof) [facility] Comment on above: Order Comment: FACIL ITY: [facility] [id number] Performed By: #### Ari S-M+ #### [facility] [address] [place], [address] CREAT, URINE 64.85 MG/DL Normal (20.00 - 320.0) [facility]: Order Comment: FACIL ITY: [facility] [id number] Performed By: #### D S-M+ #### [facility] [address] [place], [address] FENTANYL, UR SCREEN Negative Normal (< 1.0 - Cutof) [facility] Comment on above: Order Comment: FACIL ITY: [facility] [id number] Performed By: #### Ari S-M+ #### [facility] [facility] [address] [place], [address] HEROIN METAB. UR. Negative Normal (< 10 - Cutof) [facility] Comment on above: Order Comment: FACIL ITY: [facility] [id number] Performed By: #### D S-M+ #### [facility] [facility] [address] [place], [address] METHADONE METAB. UR. Negative Normal (< 100 - Cutof) [facility] Comment on above: Order Comment: FACIL ITY: [facility] [id number] Performed By: #### D S-M+ #### [facility] [facility] [address] [place], [address] OPIATES, UR. Negative Normal (< 100 - Cutof) [facility] Comment on above: Order Comment: FACIL ITY: [facility] [id number] Performed By: #### D S-M+ #### [facility] [facility] [address] [place], [address] OXYCODONE, UR. Negative Normal (< 100 - Cutof) [facility] Comment on above: Order Comment: [facility] [id number] Performed By: #### D S-M+ #### [facility] [facility] [address] [place], [address] pH (U) 5.5 [pH] Normal (5.0 - 9.0) [facility] Comment on above: Order Comment: FACIL ITY: [facility] [id number] Performed By: #### D S-M+ #### [facility] [address] [place], [address] PHENCYCLIDINE, UR. Negative Normal (< 25 - Cutof) [facility] Comment on above: Order Comment: FACIL ITY: [facility] [id number] Performed By: #### D S-M+ #### [facility] [address] [facility], [address] THC METABOLITE, UR. Positive High (< 20 - Cutof) [facility] Comment on above: Order Comment: FACIL ITY: [facility] [id number] Result Comment: THC METABOLITE URINE SCREEN = POSITIVE Specimen sent for confirmation testing for THC - [facility] test # [id number] Performed By: #### D S-M+ #### [facility] [facility] [address] [place], [address] TRAMADOL, UR SCREEN Negative Normal (< 200 - Cutof) [facility] Comment on above: Order Comment: FACIL ITY: [facility] [id number] Result Comment: This drug testing is for medical treatment only. Analysis was performed as non-forensic testing and the results should be used only by healthcare providers to render diagnosis or treatment, or to monitor the progress of medical conditions. Performed By: #### D S-M+ #### [place] [facility] [address] [place], [address] GLYCOHEMOGLOBIN A1Con 2022 ADA RECOMMENDATION SEE BELOW Normal [facility] Comment on above: Result Comment: ADA RECOMMENDED LIMIT 4.0 - 6.0 ADA THERAPEUTIC TARGET < 7.0 ACTION SUGGESTED > 7.0 Performed By: #### D ATA1C #### [facility] [address] [address] [address] Brock Elias Glucose [Mass/Vol] 128 mg/dL Normal [facility] Comment on above: Performed By: #### D ATA1C #### [facility] [address] [address] [address] Brock Elias HbA1c (Bld) [Mass fraction] 6.1 % Normal 4.5-6.2 [facility] Comment on above: Performed By: #### D ATA1C #### [facility] [address] [address] [address] Brock Elias C-REACTIVE PROTEINon 023 C REACTIVE PROTEIN (MG/L) IN SER/PLAS 7.5 mg/L High 0.0-7.0 [facility] Comment on above: Performed By: #### L [id number] #### [facility] ([facility]) [address] [place] [address] CBC WITH AUTO DIFFERENTIALon 10-27-2022 Basophils (Bld) [#/Vol] 0.05 10*3/uL Normal 0.00-0.20 [facility] Comment on above: Performed By: #### L [id number] ####[facility] ([facility])[address] [place] [address] Basophils/100 WBC (Bld) 0.6 % Normal 0.0-1.0 [facility] Comment on above: Performed By: #### L [id number] ####[facility] ([facility])[address] [place] [address] Eosinophils (Bld) [#/Vol] 0.14 10*3/uL Normal 0.00-0.50 [facility] Comment on above: Performed By: #### L [id number] ####[facility] ([facility])[address] [place] [address] Eosinophils/100 WBC (Bld) 1.7 % Normal 0.0-6.0 [facility] Comment on above: Performed By: #### L [id number] ####[facility] [place] [id number] Erythrocyte distribution width (RBC) [Ratio] 15.1 % High 11.5-15.0 [facility] Comment on above: Performed By: #### L [id number] ####[facility] ([facility] [place] [address] ERYTHROCYTE MEAN CORPUSCULAR HEMOGLOBIN CONCENTRATION (G/DL) BY AUTOMATED 33.3 g/dL Normal 32.0-35.0 [facility] Comment on above: Performed By: #### L [id number] ####[facility] ([facility] [place] [address] Hematocrit (Bld) [Volume fraction] 42.7 % Normal 36.0-48.0 [facility] Comment on above: Performed By: #### L [id number] ####[facility] ([facility])[address] [place] [id number] Hemoglobin (Bld) [Mass/Vol] 14.2 g/dL Normal 12.0-15.0 [facility] Comment on above: Performed By: #### L [id number] ####[facility] ([facility] [place] [id number] Immature granulocytes (Bld) [#/Vol] 0.02 10*3/uL Normal 0.00-0.20 [facility] Comment on above: Performed By: #### L [id number] ####[facility] ([facility])[address] [place] [id number] Immature granulocytes/100 WBC (Bld) 0.2 % Normal 0.0-1.0 [facility] Comment on above: Performed By: #### L [id number] ####[facility] ([facility])[address] [place] [id number] Lymphocytes (Bld) [#/Vol] 2.07 10*3/uL Normal 1.20-4.00 [facility] Comment on above: Performed By: #### L [id number] ####[facility] (BEAKER)[address] [place] [id number] Lymphocytes/100 WBC (Bld) 24.7 % Normal 20.0-45.0 [facility] Comment on above: Performed By: #### L [id number] ####[facility] ([facility]AKER)[address] [place] [id number] MCH (RBC) [Entitic mass] 29.1 pg Normal 27.0-33.0 [facility] Comment on above: Performed By: #### L [id number] ####[facility] ([facility]AKER)[address] [place] [id number] MCV (RBC) [Entitic vol] 87.5 fL Normal 82.0-98.0 [facility] Comment on above: Performed By: #### L [id number] ####[facility] (BEAKER)[address] [place] [id number] Monocytes (Bld) [#/Vol] 0.52 10*3/uL Normal 0.10-1.00 [facility] Comment on above: Performed By: #### L [id number] ####[facility] ([facility])[address] [place] [id number] Monocytes/100 WBC (Bld) 6.2 % Normal 5.0-12.0 [facility] Comment on above: Performed By: #### L [id number] ####[facility] ([facility])[address] [place] [address] Neutrophils (Bld) [#/Vol] 5.58 10*3/uL Normal 1.60-7.60 [facility] Comment on above: Performed By: #### L [id number] ####[facility] ([facility])[address] [place] [address] Neutrophils/100 WBC (Bld) 66.6 % Normal 40.0-72.0 [facility] Comment on above: Performed By: #### L [id number] ####[facility] ([facility])[address] [place] [id number] NRBC (PER 100 WBCS) BY AUTOMATED COUNT 0.0 % Normal 0 [facility] Comment on above: Performed By: #### L [id number] ####[facility] ([facility])[address] [place] [id number] PLATELETS (10*3/UL) IN BLOOD AUTOMATED COUNT 246 10*3/uL Normal 150-400 [facility] Comment on above: Performed By: #### L [id number] ####[facility] ([facility])[address] [place] [id number] RBC (Bld) [#/Vol] 4.88 10*6/uL Normal 3.80-5.00 [facility] Comment on above: Performed By: #### L [id number] ####[facility] ([facility])[address] [place] [id number] WBC (Bld) [#/Vol] 8.38 10*3/uL Normal 4.00-10.60 [facility] Comment on above: Performed By: #### L [id number] ####[facility] ([facility])[address] [place] [id number] Follow-Upon 10-27-2022 Follow-Up [id number] Jackie Mendoza 1975 F Date Provider Department [place] 10/27/2022 KIM MCDONNELL [facility] Nila He[facility] Family History Problem Relation Age of Onset No Known Problems Father Family Status - Relation Status Age at Mother Notes: cancer brast ca, ovarian, skin, heart disease Father Level of Service:09227 [place] OFFICE/OUTPATIENT ESTABLISHED MOD MDM 30-39 MIN () Reason for Visit and Comments: Follow-up [547335] Normal [facility] HEPATIC FUNCTION PANELon Albumin [Mass/Vol] 4.3 g/dL Normal 3.5-5.7 [facility] Comment on above: Performed By: #### L [id number] ####[facility] (BEAKER)[address] [place] [address] ALP [Catalytic activity/Vol] 78 U/L Normal 34-104 [facility] Comment on above: Performed By: #### L [id number] ####[facility] (BEAKER)[address] [place] [address] ALT [Catalytic activity/Vol] 15 U/L Normal 7-52 [facility] Comment on above: Performed By: #### L [id number] ####[facility] [place] [address] AST [Catalytic activity/Vol] 14 U/L Normal 13-39 [facility] Comment on above: Performed By: #### L [id number] ####[facility] ([facility] [place] [address] Bilirubin [Mass/Vol] 0.5 mg/dL Normal 0.3-1.0 [facility] Comment on above: Performed By: #### L [id number] ####[facility] ([facility] [place] [address] Magnesium [Mass/Vol] 0.1 mg/dL Normal 0-0.2 [facility] Comment on above: Performed By: #### L [id number] ####[facility] ([facility]AKER)[address] [place] [address] Protein [Mass/Vol] 7.3 g/dL Normal 6.0-8.3 [facility] Comment on above: Performed By: #### L [id number] ####[facility] ([facility]AKER)[address] [place] [address] SEDIMENTATION RATEon 023 SEDIMENTATION RATE, ERYTHROCYTE 5 mm/hr Normal <=20 [facility] Comment on above: Performed By: #### L [id number] #### [facility] ([facility]) [address] [place] [address] DRUG SCREEN, UR-RFLEX CONFIR 10-06-2022 ALCOHOL, UR. Negative Normal (< 10 - Cutof) [facility] Comment on above: Order Comment: FACIL ITY: [facility] [id number] Performed By: #### D S-M+ #### [facility] [address] [place], [address] AMPHETAMINES, UR. Negative Normal (< 500 - Cutof) [facility] Comment on above: Order Comment: FACIL ITY: [facility] [id number] Performed By: #### D S-M+ #### [facility] [address] [place], [address] BARBITURATES, UR. Negative Normal (< 300 - Cutof) [facility] Comment on above: Order Comment: FACIL ITY: [facility] [id number] Performed By: #### D S-M+ #### [facility] [address] [place], [address] BENZODIAZEPINES, UR. Negative Normal (< 100 - Cutof) [facility] Comment on above: Order Comment: FACIL ITY: [facility] [id number] Performed By: #### D S-M+ #### [facility] [facility] [address] [place], [address] COCAINE METAB. UR. Negative Normal (< 150 - Cutof) [facility] Comment on above: Order Comment: FACIL ITY: [facility] [id number] Performed By: #### D S-M+ #### [facility] [facility] [address] [place], [address] CREAT, URINE 67.78 MG/DL Normal (20.00 - 320.0) [facility] Comment on above: Order Comment: FACIL ITY: [facility] [id number] Performed By: #### D S-M+ #### [facility] [facility] [address] [place], [address] FENTANYL, UR SCREEN Negative Normal (< 1.0 - Cutof) [place] [facility] Comment on above: Order Comment: FACIL ITY: [facility] [id number] Performed By: #### Ari S-M+ #### [place] [facility] [address] [place], [address] HEROIN METAB. UR. Negative Normal (< 10 - Cutof) [facility]: Order Comment: FACIL ITY: [facility] [id number] Performed By: #### Ari S-M+ #### [facility] [facility] [address] [place], [address] METHADONE METAB. UR. Negative Normal (< 100 - Cutof) [facility] above: Order Comment: FACIL ITY: [facility] [id number] Performed By: #### Ari S-M+ #### [facility] [facility] [address] [place], [address] OPIATES, UR. Negative Normal (< 100 - Cutof) [facility] Comment on above: Order Comment: FACIL ITY: [facility] [id number] Performed By: #### Ari S-M+ #### [place] [facility] [address] [place], [address] OXYCODONE, UR. Negative Normal (< 100 - Cutof) [facility] Comment on above: Order Comment: FACIL ITY: [facility] [id number] Performed By: #### Ari S-M+ #### [facility] [facility] [address] [place], [address] pH (U) 6.0 [pH] Normal (5.0 - 9.0) [place] [facility] Comment on above: Order Comment: FACIL ITY: [facility] [id number] Performed By: #### Ari S-M+ #### [facility] [facility] [address] [place], [address] PHENCYCLIDINE, UR. Negative Normal (< 25 - Cutof) [facility] Comment on above: Order Comment: FACIL ITY: [facility] [id number] Performed By: #### D S-M+ #### [place] [facility] [address] [facility], [address] THC METABOLITE, UR. Positive High (< 20 - Cutof) [facility] Comment on above: Order Comment: FACIL ITY: [facility] [id number] Result Comment: THC METABOLITE URINE SCREEN = POSITIVE Specimen sent for confirmation testing for THC - [facility] test # [id number] Performed By: #### D S-M+ #### [facility] [address] [facility], [address] TRAMADOL, UR SCREEN Negative Normal (< 200 - Cutof) [facility] Comment on above: Order Comment: FACIL ITY: [facility] [id number] Result Comment: This drug testing is for medical treatment only. Analysis was performed as non-forensic testing and the results should be used only by healthcare providers to render diagnosis or treatment, or to monitor the progress of medical conditions. Performed By: #### D S-M+ #### [facility] [address] [facility], [address] [place] ALISA DOP LEG RTon 09-16-19 23 [...] WILFRIDO FORD Date: 2022-09-15 09:06 Normal [facility] CBC AUTO DIFFon 09-14-2022 BASO # 0.0 103/ul Normal 0.0-0.1 [facility] Comment on above: Performed By: #### C BC #### [facility] [address] [place] [address] Dr. Brock Elias Basophils/100 WBC (Bld) 0.4 % Normal 0.2-2.0 [facility] Comment on above: Performed By: #### C BC #### [facility] [address] [place] [address] Dr. Brock Elias EO # 0.2 103/ul Normal 0.0-0.7 [facility] Comment on above: Performed By: #### C BC #### [facility] [address] [place] [address] Dr. Brock Elias Eosinophils/100 WBC (Bld) 2.1 % Normal 0.9-7.0 [facility] Comment on above: Performed By: #### C BC #### [facility] [address] [place] [address] Dr. Brock Elias Erythrocyte distribution width (RBC) [Ratio] 15.2 % Critically high 11.0-15.0 [facility] Comment on above: Performed By: #### C BC #### [facility] [address] [place] [address] Dr. Brock Elias Hematocrit (Bld) [Volume fraction] 40.0 % Normal 36.0-48.0 [facility] Comment on above: Performed By: #### C BC #### [facility] [address] [place] [address] Dr. Brock Elias Hemoglobin (Bld) [Mass/Vol] 13.4 g/dL Normal 12.0-16.0 [facility] Comment on above: Performed By: #### C BC #### [facility] [address] [place] [address] Dr. Brock Elias IG # 0.02 10e3/ul Normal 0.00-0.03 [facility] Comment on above: Performed By: #### C BC #### [facility] [address] [place] [address] Dr. Brock Elias IG % 0.3 % Normal 0.0-0.5 [facility] Comment on above: Performed By: #### C BC #### [facility] [address] [place] [address] Dr. Brock Elias LYMPH # 1.9 103/ul Normal 1.2-3.8 [facility] Comment on above: Performed By: #### C BC #### [facility] [address] [place] [address] Dr. Brock Elias Lymphocytes/100 WBC (Bld) 26.7 % Normal 20.5-60.0 [facility] Comment on above: Performed By: #### C BC #### [facility] [address] [place] [address] Dr. Brock Elias MANUAL DIFF REQ NO Normal [facility] Comment on above: Performed By: #### C BC #### [facility] [address] [place] [address] Dr. Brock Elias MCH (RBC) [Entitic mass] 28.6 pg Normal 26.7-34.0 [facility] Comment on above: Performed By: #### C BC #### [facility] [address] [place] [address] Dr. Brock Elias MCHC (RBC) [Mass/Vol] 33.5 g/dL Normal 29.9-35.2 [facility] Comment on above: Performed By: #### C BC #### [facility] [address] [place] [address] Dr. Brock Elias MCV (RBC) [Entitic vol] 85.5 fL Normal 81.0-99.0 [facility] Comment on above: Performed By: #### C BC #### [facility] [address] [place] [address] Dr. Brock Elias MONO # 0.4 103/ul Normal 0.3-0.8 [facility] Comment on above: Performed By: #### C BC #### [facility] [address] [place] [address] Dr. Brock Elias Monocytes/100 WBC (Bld) 5.3 % Normal 1.7-12.0 [facility] Comment on above: Performed By: #### C BC #### [facility] [address] [address] [address] Brock Elias NEUT # 4.6 103/ul Normal 1.4-6.5 [facility] Comment on above: Performed By: #### C BC #### [facility] [address] [place] [address] Dr. Brock Elias Neutrophils/100 WBC (Bld) 65.2 % Normal 43.0-75.0 [facility] Comment on above: Performed By: #### C BC #### [facility] [address] [place] [address] Dr. Brock Elias Platelet mean volume (Bld) [Entitic vol] 9.9 fL Normal 9.5-13.5 [facility] Comment on above: Performed By: #### C BC #### [facility] [address] [place] [address] Dr. Brock Elias PLT 225 103/ul Normal 150-450 [facility] Comment on above: Performed By: #### C BC #### [facility] [address] [place] [address] Dr. Brock Elias RBC 4.68 106/ul Normal 4.20-5.40 [facility] Comment on above: Performed By: #### C BC #### [facility] [address] [place] [address] Dr. Brock Elias WBC 7.0 103/ul Normal 4.0-11.0 [facility] Comment on above: Performed By: #### C BC #### [facility] [address] [place] [address] Dr. Brock Elias D-DIMERon 09-14-2022 D-DIMER 2.02 mg/L FEU Critically high <=0.59 [facility] Comment on above: Performed By: #### H IV12 #### [facility] [address] [place] [address] Dr. Brock Elias D-DIMER COMMENTS SEE BELOW Normal [facility] Comment on above: Result Comment: Incr eases [...] hospitalization. Performed By: #### H IV12 #### [facility] [address] [place] [address] Dr. Brock Elias LACTATE/LACTIC ACIDon 2022 Lactate [Moles/Vol] 0.9 mmol/L Normal 0.4-2.0 [facility] Comment on above: Performed By: #### L ACT #### [facility] [address] [place] [address] Dr. Brock Elias PROF CHEM 8 (BAS METB)on Anion gap [Moles/Vol] 8.7 mmol/L Normal [facility] Comment on above: Performed By: #### B MP #### [facility] [address] [place] [address] Dr. Brock Elias Calcium [Mass/Vol] 8.9 mg/dL Normal 8.5-10.1 [facility] Comment on above: Performed By: #### B MP #### [facility] [address] [place] [address] Dr. Brock Elias Chloride [Moles/Vol] 105 mmol/L Normal 98-107 [facility] Comment on above: Performed By: #### B MP #### [facility] [address] [place] [address] Dr. Brock Elias CO2 [Moles/Vol] 29.3 mmol/L Normal 21.0-32.0 [facility] Comment on above: Performed By: #### B MP #### [facility] [address] [place] [address] Dr. Brock Elias Creatinine [Mass/Vol] 0.81 mg/dL Normal 0.55-1.02 [facility] Comment on above: Performed By: #### B MP #### [facility] [address] [place] [address] Dr. Brock Elias EGFR-AF CITIZEN [place] >60 Normal >=60 [facility] Comment on above: Performed By: #### B MP #### [facility] [address] [address] [address] Brock Elias EGFR-NON AF CITIZEN OF [place] >60 Normal >=60 [facility] Comment on above: Performed By: #### B MP #### [facility] [address] [address] [address] Brock Elias Glucose [Mass/Vol] 106 mg/dL Normal 74-106 [facility] Comment on above: Performed By: #### B MP #### [facility] [address] [address] [address] Brock Elias Potassium [Moles/Vol] 4.0 mmol/L Normal 3.5-5.1 [facility] Comment on above: Performed By: #### B MP #### [facility] [address] [address] [address] Brock Elias Sodium [Moles/Vol] 139 mmol/L Normal 136-145 [facility] Comment on above: Performed By: #### B MP #### [facility] [address] [address] [address] Brock Elias Urea nitrogen [Mass/Vol] 11.0 mg/dL Normal 7.0-18.0 [facility] Comment on above: Performed By: #### B MP #### [facility] [address] [address] [address] Brock Elias Urea nitrogen/Creatinine [Mass ratio] 13.6 mg/mg Normal [facility] Comment on above: Performed By: #### B MP #### [facility] [address] [address] [address] Brock Elias Office Visiton 09-12-2022 Follow-up visit [id number] Jackie Mendoza 1975 F Date Provider Department Center 09/12/2022 KIM [facility]CDONNELL [facility] Family History Problem Relation Age of Onset No Known Problems Father Family Status - Relation Status Age at Mother Notes: cancer brast ca, ovarian, skin, heart disease Father Level of Service:20623 [place] OFFICE/OUTPATIENT ESTABLISHED MOD MDM 30-39 MIN (GC) Reason for Visit and Comments: New Patient [632] - New Pt, possible fibromyalgia Normal [facility] HIV 1 AND 2 WITH REFLEXon HIV Screen 4th Generation wRfx Non-Reactive Normal Non Reactive [facility] Comment on above: Result Comment: HIV Negative HIV-1/HIV-2 antibodies and HIV-1 p24 antigen were NOT detected. There is no laboratory evidence of HIV infection. Performed By: #### H IV12 #### [facility] [address] [address] [address] Brock Elias XR ELBOW MARTHA MIN [...] by: GILL MORENO Date: 2022-08-13 10:47 Normal [facility] XR HAND MARTHA MIN 3Von 023 XR [...] by: GILL MORENO Date: 2022-08-13 10:45 Normal [facility] XR KNEE MARTHA 3 Von 08-12-2022 XR [...] MELISSA GATES Date: 2022-08-12 17:40 Normal [facility] XR WRIST MARTHA MIN 3 Von [...] MELISSA GATES Date: 2022-08-12 17:26 Normal [facility] LUCINDA EIA W/REFLEX 9 BIOMARKER Son 07-23-2022 LUCINDA Direct Negative Normal Negative [facility] Comment on above: Performed By: #### H IV12 #### [facility] [address] [place] [address] Dr. Brock Elias C-REACTIVE PROTEINS (HS)on 0 07-23-2022 C-Reactive Protein, Cardiac 4.28 mg/L Critically high 0.00-3.00 [facility] Comment on above: Result Comment: Rela tive Risk for Future Cardiovascular Event Low <1.00 Average 1.00 - 3.00 High >3.00 Performed By: #### C RPHS #### [facility] [address] [place] [address] Dr. Brock Elias CYCLIC CITRULLINATED PEPTIDE AB (CCP)on 07-23-2022 CCP Antibodies IgG/IgA 6 units Normal 0-19 [facility] Comment on above: Result Comment: Nega tive <20 Weak positive 20 - 39 Moderate positive 40 - 59 Strong positive >59 Performed By: #### R F #### [facility] [address] [place] [address] Dr. Brock Elias RHEUMATOID FACTORon 07-23-19 23 RA Latex Turbid. <10.0 Normal <14.0 [facility] Comment on above: Performed By: #### R F #### [facility] [address] [place] [address] Dr. Brock Elias GLYCOHEMOGLOBIN A1Con 2022 ADA RECOMMENDATION SEE BELOW Normal [facility] Comment on above: Result Comment: ADA RECOMMENDED LIMIT 4.0 - 6.0 ADA THERAPEUTIC TARGET < 7.0 ACTION SUGGESTED > 7.0 Performed By: #### C MP #### [facility] [address] [place] [address] Dr. Brock Elias Glucose [Mass/Vol] 126 mg/dL Normal [facility] Comment on above: Performed By: #### C MP #### [facility] [address] [place] [address] Dr. Brock Elias HbA1c (Bld) [Mass fraction] 6.0 % Normal 4.5-6.2 [facility] Comment on above: Performed By: #### C MP #### [facility] [address] [place] [address] Dr. Brock Elias PROF 14(COMP METB)on 023 Albumin [Mass/Vol] 3.9 g/dL Normal 3.4-5.0 [facility] Comment on above: Performed By: #### C MP #### [facility] [address] [place] [address] Dr. Brock Elias Albumin/Globulin [Mass ratio] 1.1 {ratio} Normal [facility] Comment on above: Performed By: #### C MP #### [facility] [address] [address] [address] Brock Elias ALP [Catalytic activity/Vol] 88 U/L Normal 46-116 [facility] Comment on above: Performed By: #### C MP #### [facility] [address] [address] [address] Brock Elias ALT [Catalytic activity/Vol] 28 U/L Normal 14-59 [facility] Comment on above: Performed By: #### C MP #### [facility] [address] [place] [address] Dr. Brock Elias Anion gap [Moles/Vol] 13.8 mmol/L Normal [facility] Comment on above: Performed By: #### C MP #### [facility] [address] [place] [address] Dr. Brock Elias AST [Catalytic activity/Vol] 31 U/L Normal 15-37 [facility] Comment on above: Performed By: #### C MP #### [facility] [address] [place] [address] Dr. Brock Elias Bilirubin [Mass/Vol] 0.6 mg/dL Normal 0.2-1.0 [facility] Comment on above: Performed By: #### C MP #### [facility] [address] [place] [address] Dr. Brock Elias Calcium [Mass/Vol] 8.9 mg/dL Normal 8.5-10.1 [facility] Comment on above: Performed By: #### C MP #### [facility] [address] [place] [address] Dr. Brock Elias Chloride [Moles/Vol] 104 mmol/L Normal 98-107 [facility] [facility] Comment on above: Performed By: #### C MP #### [facility] [address] [place] [address] Dr. Brock Elias CO2 [Moles/Vol] 28.5 mmol/L Normal 21.0-32.0 [facility] Comment on above: Performed By: #### C MP #### [facility] [address] [address] [address] Brock Elias Creatinine [Mass/Vol] 0.76 mg/dL Normal 0.55-1.02 [facility] Comment on above: Performed By: #### C MP #### [facility] [address] [address] [address] Brock Elias EGFR-AF CITIZEN [place] >60 Normal >=60 [facility] Comment on above: Performed By: #### C MP #### [facility] [address] [address] [address] Brock Elias EGFR-NON AF CITIZEN OF [place] >60 Normal >=60 [facility] Comment on above: Performed By: #### C MP #### [facility] [address] [place] [address] Dr. Brock Elias Globulin (S) [Mass/Vol] 3.7 g/dL Normal [facility] Comment on above: Performed By: #### C MP #### [facility] [address] [place] [address] Dr. Brock Elias Glucose [Mass/Vol] 107 mg/dL Critically high 74-106 [facility] Comment on above: Performed By: #### C MP #### [facility] [address] [place] [address] Dr. Brock Elias Potassium [Moles/Vol] 4.3 mmol/L Normal 3.5-5.1 [facility] Comment on above: Performed By: #### C MP #### [facility] [address] [place] [address] Dr. Brock Elias Protein [Mass/Vol] 7.6 g/dL Normal 6.4-8.2 [facility] Comment on above: Performed By: #### C MP #### [facility] [address] [place] [address] Dr. Brock Elias Sodium [Moles/Vol] 142 mmol/L Normal 136-145 [facility] Comment on above: Performed By: #### C MP #### [facility] [address] [place] [address] Dr. Brock Elias Urea nitrogen [Mass/Vol] 15.0 mg/dL Normal 7.0-18.0 [facility] Comment on above: Performed By: #### C MP #### [facility] [address] [place] [address] Dr. Brock Elias Urea nitrogen/Creatinine [Mass ratio] 19.7 mg/mg Normal [facility] Comment on above: Performed By: #### C MP #### [facility] [address] [place] [address] Dr. Brock Elias [facility] 29 mm/hr Critically high <=20 [facility] Comment on above: Performed By: #### R F #### [facility] [address] [place] [address] Dr. Brock Elias PROF 14(COMP METB)on 023 Albumin [Mass/Vol] 3.6 g/dL Normal 3.4-5.0 [facility] Comment on above: Performed By: #### C MP #### [facility] [address] [place] [address] Dr. Brock Elias Albumin/Globulin [Mass ratio] 1.1 {ratio} Normal [facility] Comment on above: Performed By: #### C MP #### [facility] [address] [place] [address] Dr. Brock Elias ALP [Catalytic activity/Vol] 83 U/L Normal 46-116 [facility] Comment on above: Performed By: #### C MP #### [facility] [address] [place] [address] Dr. Brock Elias ALT [Catalytic activity/Vol] 22 U/L Normal 14-59 [facility] Comment on above: Performed By: #### C MP #### [facility] [address] [place] [address] Dr. Brock Elias Anion gap [Moles/Vol] 12.8 mmol/L Normal [facility] Comment on above: Performed By: #### C MP #### [facility] [address] [place] [address] Dr. Brock Elias AST [Catalytic activity/Vol] 17 U/L Normal 15-37 [facility] Comment on above: Performed By: #### C MP #### [facility] [address] [address] [address] Brock Elias Bilirubin [Mass/Vol] 0.5 mg/dL Normal 0.2-1.0 [facility] Comment on above: Performed By: #### C MP #### [facility] [address] [address] [address] Brock Elias Calcium [Mass/Vol] 8.5 mg/dL Normal 8.5-10.1 [facility] Comment on above: Performed By: #### C MP #### [facility] [address] [place] [address] Dr. Brock Elias Chloride [Moles/Vol] 104 mmol/L Normal 98-107 [facility] Comment on above: Performed By: #### C MP #### [facility] [address] [address] [address] Brock Elias CO2 [Moles/Vol] 26.3 mmol/L Normal 21.0-32.0 [facility] Comment on above: Performed By: #### C MP #### [facility] [address] [place] [address] Dr. Brock Elias Creatinine [Mass/Vol] 0.79 mg/dL Normal 0.55-1.02 [facility] Comment on above: Performed By: #### C MP #### [facility] [address] [address] [address] Brock Elias EGFR-AF CITIZEN [place] >60 Normal >=60 [facility] Comment on above: Performed By: #### C MP #### [facility] [address] [address] [address] Brock Elias EGFR-NON AF CITIZEN OF [place] >60 Normal >=60 [facility] Comment on above: Performed By: #### C MP #### [facility] [address] [place] [address] Dr. Brock Elias Globulin (S) [Mass/Vol] 3.3 g/dL Normal [facility] Comment on above: Performed By: #### C MP #### [facility] [address] [place], [place] [address] Dr. Brock Elias Glucose [Mass/Vol] 153 mg/dL Critically high 74-106 [facility] Comment on above: Performed By: #### C MP #### [facility] [address] [place], [place] [address] Dr. Brock Elias Potassium [Moles/Vol] 4.1 mmol/L Normal 3.5-5.1 [facility] Comment on above: Performed By: #### C MP #### [facility] [address] [address] [address] Brock Elias Protein [Mass/Vol] 6.9 g/dL Normal 6.4-8.2 [facility] Comment on above: Performed By: #### C MP #### [facility] [address] [address] [address] Brock Elias Sodium [Moles/Vol] 139 mmol/L Normal 136-145 [facility] Comment on above: Performed By: #### C MP #### [facility] [address] [address] [address] Brock Elias Urea nitrogen [Mass/Vol] 12.0 mg/dL Normal 7.0-18.0 [facility] Comment on above: Performed By: #### C MP #### [facility] [address] [address] [address] Brock Elias Urea nitrogen/Creatinine [Mass ratio] 15.2 mg/mg Normal [facility] Comment on above: Performed By: #### C MP #### [facility] [id number] Brock Elias US VAC ASST BX BREAST RT W C Ilana 06-12-2022 US VAC ASST BX BREAST RT W CLIP Begin Addendum #1 COLLECTED DATE/TIME: 06/04/2022 08:21 EST Final Diagnosis Report for [facility] [place] ULTRASOUND GUIDED CORE BIOPSY RIGHT BREAST [...] provided after pathology results are available. Normal [facility] MAMMO POST BIOPSY RIGHTon MAMMO POST BIOPSY RIGHT Patient: RADHA SANTACRUZ Exam Date: 06/04/2022 : 1975 Gender:F Ordering : DONNIE AGEE Admission #: [id number] Family : Order #: [id number] CLICK HERE TO VIEW EXAM RADIOLOGY REPORT [...] Moreno M.D. on 06/09/2022 at 13:[address] [facility] 05-28-2022 [facility] RADHA SANTACRUZ ([id number]) 1975 F Date Time Provider Department 05/28/22 CHANCE LANGLEY During your visit today, we recorded the following information about you: Bandar Miya 05/28/2022 2:23 PM Signed Pt is being referred by [facility] dx Breast Ca. Per Karina Antunez [...] Encounter Status:Closed by BANDAR LAGUNA on 05/30/22 [facility] MG MAMM RT DIAG FUon 022 MG MAMM RT DIAG Patient: ONIEL SANTACRUZ Exam Date: 05/28/2022 : 1975 Gender:F Ordering : DONNIE KAMINSKI VIDEO TECHNICIAN-C Admission #: [id number] Family : Order #: [id number] CLICK HERE TO VIEW EXAM RADIOLOGY REPORT [...] breast cancer at age 38. LOCATION: [facility] BREAST COMPOSITION: Scattered areas fibroglandular density. [...] M.D. on 05/28/2022 at 12:33 Normal [facility] US BREAST RIGHT LIMITEDon US BREAST RIGHT LIMITED Patient: RADHA SANTACRUZ Exam Date: 05/28/2022 : 1975 Gender:F Ordering : DONNIE KAMINSKI VIDEO TECHNICIAN-C Admission #: [id number] Family : Order #: [id number] CLICK HERE TO VIEW EXAM RADIOLOGY REPORT [...] breast cancer at age 38. LOCATION: [facility] BREAST COMPOSITION: Scattered areas fibroglandular density. [...] M.D. on 05/28/2022 at 12:33 Normal [facility] XR HAND MARTHA MIN 3Von 022 XR HAND MARTHA MIN 3V EXAM: XR HAND MARTHA ND N 3V HISTORY: Bilateral hand pain COMPARISON: None. TECHNIQUE: 3 views of each hand FINDINGS: No fracture, dislocation, subluxation or osseous lesion. Joint spaces are normal for patient's age. No visualized erosion or joint effusion. No soft tissue edema. IMPRESSION: Normal hand x-rays Electronically authenticated by: AGUSTIN ADAMSON Date: 2022-05-19 16:32 Normal [facility] XR LSPINE 2_3 VIEWSon 2021 XR LSPINE [...] by: AGUSTIN ADAMSON Date: 2022-05-19 16:29 Normal [facility] MAMM SCREEN 3D MARTHA CADon 04-29-2022 MG MAMM SCREEN 3D MARTHA CAD Patient: RADHA SANTACRUZ Exam Date: 04/29/2022 : 1975 Gender:F Ordering : DONNIE KAMINSKI VIDEO TECHNICIAN-C Admission #: [id number] Family : Order #: [id number] CLICK HERE TO VIEW EXAM RADIOLOGY REPORT [...] breast cancer at age 38. LOCATION: [facility] BREAST COMPOSITION: Scattered areas fibroglandular density. [...] Stephenson MD on 04/30/2022 at 07:26 Normal [facility] Physician Referralon 022 Physician Referral [id number]:127 Normal [facility] Physician Referral [id number] 0CD:127 Normal [facility] CBC AUTO DIFFon 04-14-2022 BASO # 0.1 103/ul Normal 0.0-0.1 [facility] Comment on above: Performed By: #### C MP #### [facility] [address] [place] [address] Dr. Brock Elias Basophils/100 WBC (Bld) 0.8 % Normal 0.2-2.0 [facility] Comment on above: Performed By: #### C MP #### [facility] [address] [place] [address] Dr. Brock Elias EO # 0.2 103/ul Normal 0.0-0.7 [facility] Comment on above: Performed By: #### C MP #### [facility] [address] [place] [address] Dr. Brock Elias Eosinophils/100 WBC (Bld) 2.1 % Normal 0.9-7.0 [facility] Comment on above: Performed By: #### C MP #### [facility] [address] [place] [address] Dr. Brock Elias Erythrocyte distribution width (RBC) [Ratio] 14.0 % Normal 11.0-15.0 [facility] Comment on above: Performed By: #### C MP #### [facility] [address] [address] [address] Brock Elias Hematocrit (Bld) [Volume fraction] 39.6 % Normal 36.0-48.0 [facility] Comment on above: Performed By: #### C MP #### [facility] [address] [address] [address] Brock Elias Hemoglobin (Bld) [Mass/Vol] 12.6 g/dL Normal 12.0-16.0 [facility] Comment on above: Performed By: #### C MP #### [facility] [address] [address] [address] Brock Elias IG # 0.02 10e3/ul Normal 0.00-0.03 [facility] Comment on above: Performed By: #### C MP #### [facility] [address] [place] [address] Dr. Brock Elias IG % 0.2 % Normal 0.0-0.5 [facility] Comment on above: Performed By: #### C MP #### [facility] [address] [place] [address] Dr. Brock Elias LYMPH # 2.2 103/ul Normal 1.2-3.8 [facility] Comment on above: Performed By: #### C MP #### [facility] [address] [place] [address] Dr. Brock Elias Lymphocytes/100 WBC (Bld) 25.5 % Normal 20.5-60.0 [facility] Comment on above: Performed By: #### C MP #### [facility] [address] [place] [address] Dr. Brock Elias MANUAL DIFF REQ NO Normal [facility] Comment on above: Performed By: #### C MP #### [facility] [address] [place] [address] Dr. Brock Elias MCH (RBC) [Entitic mass] 28.0 pg Normal 26.7-34.0 [facility] Comment on above: Performed By: #### C MP #### [facility] [address] [address] [address] Brock Elias MCHC (RBC) [Mass/Vol] 31.8 g/dL Normal 29.9-35.2 [facility] Comment on above: Performed By: #### C MP #### [facility] [address] [address] [address] Brock Elias MCV (RBC) [Entitic vol] 88.0 fL Normal 81.0-99.0 [facility] Comment on above: Performed By: #### C MP #### [facility] [address] [address] [address] Brock Elias MONO # 0.4 103/ul Normal 0.3-0.8 [facility] Comment on above: Performed By: #### C MP #### [facility] [address] [place] [address] Dr. Brock Elias Monocytes/100 WBC (Bld) 4.8 % Normal 1.7-12.0 [facility] Comment on above: Performed By: #### C MP #### [facility] [address] [place] [address] Dr. Brock Elias NEUT # 5.6 103/ul Normal 1.4-6.5 [facility] Comment on above: Performed By: #### C MP #### [facility] [address] [place] [address] Dr. Brock Elias Neutrophils/100 WBC (Bld) 66.6 % Normal 43.0-75.0 [facility] Comment on above: Performed By: #### C MP #### [facility] [address] [place] [address] Dr. Brock Elias Platelet mean volume (Bld) [Entitic vol] 9.9 fL Normal 9.5-13.5 [facility] Comment on above: Performed By: #### C MP #### [facility] [address] [place] [address] Dr. Brock Elias PLT 266 103/ul Normal 150-450 [facility] Comment on above: Performed By: #### C MP #### [facility] [address] [address] [address] Brock Elias RBC 4.50 106/ul Normal 4.20-5.40 [facility] Comment on above: Performed By: #### C MP #### [facility] [address] [place] [address] Dr. Brock Elias WBC 8.5 103/ul Normal 4.0-11.0 [facility] Comment on above: Performed By: #### C MP #### [facility] [address] [place] [address] Dr. Brock Elias GLYCOHEMOGLOBIN A1Con 2021 ADA RECOMMENDATION SEE BELOW Normal [facility] Comment on above: Result Comment: ADA RECOMMENDED LIMIT 4.0 - 6.0 ADA THERAPEUTIC TARGET < 7.0 ACTION SUGGESTED > 7.0 Performed By: #### A 1C #### [facility] [address] [place] [address] Dr. Brock Elias Glucose [Mass/Vol] 123 mg/dL Normal [facility] Comment on above: Performed By: #### A 1C #### [facility] [address] [place] [address] Dr. Brock Elias HbA1c (Bld) [Mass fraction] 5.9 % Normal 4.5-6.2 [facility] Comment on above: Performed By: #### A 1C #### [facility] [address] [place] [address] Dr. Brock Elias LIPID PROFILEon 04-14-2022 CHOL-HDL RATIO NORM SEE BELOW Normal [facility] Comment on above: Result Comment: 3.3 - 4.4 LOW RISK 4.4 - 7.1 AVERAGE RISK 7.1 - 11.0 MODERATE RISK >11.0 HIGH RISK Performed By: #### R F #### [facility] [address] [place] [address] Dr. Brock Elias Cholesterol [Mass/Vol] 133 mg/dL Normal <=200 [facility] Comment on above: Performed By: #### R F #### [facility] [address] [place] [address] Dr. Brock Elias Cholesterol in HDL [Mass/Vol] 43 mg/dL Normal 40-60 [facility] Comment on above: Performed By: #### R F #### [facility] [address] [address] [address] Brock Elias Cholesterol in LDL [Mass/Vol] 74.2 mg/dL Normal [facility] Comment on above: Performed By: #### R F #### [facility] [address] [address] [address] Brock Elias Cholesterol.total/Ch olesterol in HDL [Mass ratio] 3.1 {ratio} Normal [facility] Comment on above: Performed By: #### R F #### [facility] [address] [address] [address] Brock Elias HDL NORMAL > or = 60 mg/dl - LO W CARDIOVASCULAR RISK <40 mg/dl - HIGH CARDIOVASCULAR RISK Normal [facility] Comment on above: Performed By: #### R F #### [facility] [address] [place] [address] Dr. Brock Elias LDL CALC NORMAL SEE BELOW Normal [facility] Comment on above: Result Comment: <100 mg/dl OPTIMAL 100 - 129 mg/dl NEAR OR ABOVE OPTIMAL 130 - 159 mg/dl BORDERLINE HIGH 160 - 189 mg/dl HIGH >190 mg/dl VERY HIGH Performed By: #### R F #### [facility] [address] [place] [address] Dr. Brock Elias Triglyceride [Mass/Vol] 79 mg/dL Normal <=150 [facility] Comment on above: Performed By: #### R F #### [facility] [address] [address] [address] Brock Elias VLDL CALC 15.8 mg/dL Normal [facility] Comment on above: Performed By: #### R F #### [facility] [address] [place] [address] Dr. Brock Elias PROF 14(COMP METB)on 022 Albumin [Mass/Vol] 3.6 g/dL Normal 3.4-5.0 [facility] Comment on above: Performed By: #### H IV12 #### [facility] [address] [place] [address] Dr. Brock Elias Albumin/Globulin [Mass ratio] 0.9 {ratio} Normal [facility] Comment on above: Performed By: #### H IV12 #### [facility] [address] [place] [address] Dr. Brock Elias ALP [Catalytic activity/Vol] 83 U/L Normal 46-116 [facility] Comment on above: Performed By: #### H IV12 #### [facility] [address] [place] [address] Dr. Brock Elias ALT [Catalytic activity/Vol] 15 U/L Normal 14-59 [facility] Comment on above: Performed By: #### H IV12 #### [facility] [address] [place] [address] Dr. Brock Elias Anion gap [Moles/Vol] 9.5 mmol/L Normal [facility] Comment on above: Performed By: #### H IV12 #### [facility] [address] [place] [address] Dr. Brock Elias AST [Catalytic activity/Vol] 12 U/L Critically low 15-37 [facility] Comment on above: Performed By: #### H IV12 #### [facility] [address] [place] [address] Dr. Brock Elias Bilirubin [Mass/Vol] 0.4 mg/dL Normal 0.2-1.0 [facility] Comment on above: Performed By: #### H IV12 #### [facility] [address] [place] [address] Dr. Brock Elias Calcium [Mass/Vol] 8.9 mg/dL Normal 8.5-10.1 [facility] Comment on above: Performed By: #### H IV12 #### [facility] [address] [place] [address] Dr. Brock Elias Chloride [Moles/Vol] 105 mmol/L Normal 98-107 [facility] Comment on above: Performed By: #### H IV12 #### [facility] [address] [place] [address] Dr. Brock Elias CO2 [Moles/Vol] 28.5 mmol/L Normal 21.0-32.0 [facility] Comment on above: Performed By: #### H IV12 #### [facility] [address] [address] [address] Brock Elias Creatinine [Mass/Vol] 0.73 mg/dL Normal 0.55-1.02 [facility] Comment on above: Performed By: #### H IV12 #### [facility] [address] [address] [address] Brock Elias EGFR-AF CITIZEN [place] >60 Normal >=60 [facility] Comment on above: Performed By: #### H IV12 #### [facility] [address] [place] [address] Dr. Brock Elias EGFR-NON AF CITIZEN OF [place] >60 Normal >=60 [facility] Comment on above: Performed By: #### H IV12 #### [facility] [address] [place] [address] Dr. Brock Elias Globulin (S) [Mass/Vol] 3.8 g/dL Normal [facility] Comment on above: Performed By: #### H IV12 #### [facility] [address] [place] [address] Dr. Brock Elias Glucose [Mass/Vol] 99 mg/dL Normal 74-106 [facility] Comment on above: Performed By: #### H IV12 #### [facility] [address] [place] [address] Dr. Brock Elias Potassium [Moles/Vol] 4.0 mmol/L Normal 3.5-5.1 [facility] Comment on above: Performed By: #### H IV12 #### [facility] [address] [address] [address] Brock Elias Protein [Mass/Vol] 7.4 g/dL Normal 6.4-8.2 [facility] Comment on above: Performed By: #### H IV12 #### [facility] [address] [place] [address] Dr. Brock Elias Sodium [Moles/Vol] 139 mmol/L Normal 136-145 [facility] Comment on above: Performed By: #### H IV12 #### [facility] [address] [place] [address] Dr. Brock Elias Urea nitrogen [Mass/Vol] 12.0 mg/dL Normal 7.0-18.0 [facility] Comment on above: Performed By: #### H IV12 #### [facility] [address] [place] [address] Dr. Brock Elias Urea nitrogen/Creatinine [Mass ratio] 16.4 mg/mg Normal [facility] Comment on above: Performed By: #### H IV12 #### [facility] [address] [place] [address] Dr. Brock Elias TSHon 04-14-2022 TSH 1.033 uIU/mL Normal 0.358-3.740 [facility] Comment on above: Performed By: #### H IV12 #### [facility] [address] [place] [address] Dr. Brock Elias HEMOGLOBINon 04-10-2022 Hemoglobin (Bld) [Mass/Vol] 13.0 g/dL Normal 12.0-16.0 [facility] Comment on above: Performed By: #### C MP #### [facility] [address] [place] [address] Dr. Brock Elias Operative Reporton 2 Operative Report MR#: [id number] 2 [facility] Pt. Name: Radha Santacruz Room #: [id number] Discharge 03/01/2022 Date: Birthdate: 1975 OPERATIVE REPORT [...] content not included)... Normal [facility] POC GLUCOSE LABon 02-28-2022 Glucose [Mass/Vol] 94 mg/dL Normal 70-100 [facility] Comment on above: Performed By: #### 8 [id number] #### [address] [place] [address], [facility] PORTABLE KNEE RIGHT 2 [facility] 02-28-2022 PORTABLE KNEE RIGHT 2 [facility] Department of Radiology [address] [place] [phone] ======== Patient Name: RADHA SANTACRUZ : [...] fracture. Electronically signed: Joellen Sweeney. Transcribed by: [email or web address], User Resident: Electronically Signed by: JOELLEN SWEENEY @ 02/28/2022 05:45 PM Normal [facility] Comment on above: Order Comment: Hardw are Evaluation, in PACU MRI KNEE WO CONTRAST RIGHT 12-10-2021 MRI KNEE WO CONTRAST [facility] Department of Radiology [address] [place] [phone] ======== Patient Name: RADHA SANTACRUZ : 1975 Sex: F Age: Race: White Pt. Location: 84 Patient Status: D Ordered Date: 11/21/2021 2:35:00 PM Completed Date: 12/10/2021 01:08 PM Requesting Provider: PETERSON BHATIA Attending Provider: PETERSON BHATIA Report Copy To: Signs & Symptoms: M25.561 Pain in right knee I10 History: [employer], pt. has pain pump, ortho hardware back [...] above Electronically signed: Adelaida Dinh. Transcribed by: [email or web address], User Resident: Electronically Signed by: ADELAIDA DINH @ 12/11/2021 09:43 AM Normal [facility] Comment on above: Order Comment: LEIJA AND NEPHCABRERA PROTOCOL , Side: RIGHT KNEE LEFT 3 Son 11-21-2021 KNEE LEFT 3 S [facility] Department of Radiology [address] [place] [phone] ======== Patient Name: RADHA SANTACRUZ : 1975 Sex: F Age: Race: White Pt. Location: 84 Patient Status: D Ordered Date: 11/21/2021 12:30:00 PM Completed Date: 11/21/2021 01:35 PM Requesting Provider: PETERSON BHATIA Attending Provider: PETERSON BHATIA Report Copy To: ROSA CM Signs & Symptoms: M25.561 Pain in right knee I10 History: Lucita Comments: Views (X-RAY, KNEE): AP, Lateral, Napanoch Exam: KNEE LEFT 3 [facility] ======== KNEE LEFT 3 [facility] 11/21/2021 1:35 PM CLINICAL INDICATIONS: M25.561 Pain in right knee I10 TECHNOLOGIST COMMENTS: Pt stated having bilateral knees pain, no known injury. QUESTION FOR THE RADIOLOGIST: Views (X-RAY, KNEE): AP, Lateral, Napanoch PROTOCOL: AP,Lateral and Tangential views were obtained. COMPARISON: 11/04/2014 FINDINGS: Severe joint space narrowing in the medial femorotibial compartment. Tricompartmental osteophyte formation. Small knee joint effusion. IMPRESSION: Tricompartmental osteoarthritis most prominent in the medial femorotibial compartment. Electronically signed: Elizabeth Landis. Transcribed by: [email or web address], User Resident: Electronically Signed by: ELIZABETH LANDIS @ 11/23/2021 03:26 PM Normal [facility] Comment on above: Order Comment: Views (X-RAY, KNEE): AP, Lateral, Napanoch KNEE RIGHT 3 [facility] 2 KNEE RIGHT 3 [facility] Department of Radiology [address] [place] [phone] ======== Patient Name: RADHA SANTACRUZ : 1975 Sex: F Age: Race: White Pt. Location: 84 Patient Status: D Ordered Date: 11/21/2021 12:30:00 PM Completed Date: 11/21/2021 01:35 PM Requesting Provider: PETERSON BHATIA Attending Provider: PETERSON BHATIA Report Copy To: CM LEE Signs & Symptoms: M25.561 Pain in right knee I10 History: Lucita Comments: Views (X-RAY, KNEE): AP, Lateral, Napanoch Exam: KNEE RIGHT 3 VWS ======== KNEE RIGHT 3 VWS 11/21/2021 1:35 PM CLINICAL INDICATIONS: M25.561 Pain in right knee I10 TECHNOLOGIST COMMENTS: Pt stated having bilateral knees pain, no known injury. QUESTION FOR THE RADIOLOGIST: Views (X-RAY, KNEE): AP, Lateral, Napanoch PROTOCOL: AP,Lateral and Tangential views were obtained. COMPARISON: 02/18/2011 FINDINGS: Severe tricompartmental osteophyte formation and joint space narrowing. No fracture. No malalignment. Moderate knee joint effusion. IMPRESSION: Severe tricompartmental osteoarthritis. Electronically signed: Elizabeth Landis. Transcribed by: [email or web address], User Resident: Electronically Signed by: ELIZABETH LANDIS @ 11/23/2021 03:26 PM Normal [facility] Comment on above: Order Comment: Views (X-RAY, KNEE): AP, Lateral, Napanoch LOWER EXTREMITY JOINT SURVEY on 11-21-2021 LOWER EXTREMITY JOINT SURVEY [facility] Department of Radiology [address] [place] [phone] ======== Patient Name: RADHA SANTACRUZ : [...] above. Electronically signed: Elizabeth Landis. Transcribed by: [email or web address], User Resident: Electronically Signed by: ELIZABETH LANDIS @ 11/23/2021 11:03 PM Normal [facility] Cytologyon 10-23-2021 Cytology (NOTE) INTERPRETATION Cervical material, (ThinPrep vial, Imaging-assisted review): Specimen Adequacy: Satisfactory for evaluation. - Endocervical/transform ation zone component present. Descriptive Diagnosis: Negative for intraepithelial lesion or malignancy. Cyber Crime Investigator: IRINA Estrada(ASCP) Electronically Signed Out /10/29/2021 Source: A: Cervical material, (ThinPrep vial, Imaging-assisted review) Clinical History Z01.419 Routine mass spec exam without abnormal findings High risk HPV DNA testing is requested if the diagnosis is abnormal GYNECOLOGIC CYTOLOGY REPORT Patient Name: RADHA SANTACRUZ [facility] Rec: [id number] Path Number: [id number] [employer] ANATOMIC PATHOLOGY [address] [place] [phone] [facility] Comment on above: Performed By: #### P PPVP #### [employer] [address] [place] [id number] Fire Boss: Saw Elizondo MD Surgical Pathologyon Surgical Pathology [...] SURGICAL PATHOLOGY CONSULTATION Patient Name: RADHA SANTACRUZ [facility] Rec: [id number] Path Number: [id number] [employer] ANATOMIC PATHOLOGY [address] [place] [phone] [facility] Comment on above: Performed By: #### P PPVS #### [employer] [address] [place] [id number] Fire Boss: Saw Elizondo MD Vital Signs Date Time Vital Sign Value Performing Clinician Facility 06-01-2023 16:00-0500 Body height Kayla Franklin Other [facility] Other 06-01-2023 16:00-0500 Body mass index (BMI) [Ratio] 51.84 kg/m2 Kayla Franklin Other [facility] Other 06-01-2023 16:00-0500 Body temperature 98.4 [degF] Kayla Franklin Other [facility] Other 06-01-2023 16:00-0500 Body weight 124.47 kg Kayla Franklin Other [facility] Other 06-01-2023 16:00-0500 Respiratory rate 18 /min Kayla Franklin Other [facility] Other 06-01-2023 16:00-0500 SaO2% (BldA) [Mass fraction] 93 % Kayla Franklin Other [facility] Other 03-05-2023 16:45-0400 Body temperature 97.2 [degF] Mohit Dejesus MD Work Phone: [employer] 03-05-2023 16:45-0400 Diastolic blood pressure 76 mm[Hg] Mohit Dejesus MD Work Phone: [employer] 03-05-2023 16:45-0400 Heart rate 75 /min Mohit Dejesus MD Work Phone: [employer] 03-05-2023 16:45-0400 Respiratory rate 16 /min Mohit Dejesus MD Work Phone: [employer] 03-05-2023 16:45-0400 SaO2% (BldA) [Mass fraction] 96 % Mohit Dejesus MD Work Phone: [employer] 03-05-2023 16:45-0400 Systolic blood pressure 141 mm[Hg] Mohit Dejesus MD Work Phone: [facility] 03-05-2023 12:57-0400 Body height 154.9 cm Mohit Dejesus MD Work Phone: [employer] 03-05-2023 12:57-0400 Body mass index (BMI) [Ratio] 49.32 kg/m2 Mohit Dejesus MD Work Phone: [employer] 03-05-2023 12:57-0400 Body weight 118.39 kg Mohit Dejesus MD Work Phone: [facility] Encounters Encounter Date Encounter Type Care Provider Facility Start: 09-03-2023 End: 09-04-2023 ambulatory [facility] Start: 09-03-2023 End: 09-03-2023 ambulatory [facility] Start: 08-26-2023 Telephone encounter Fatmata Barger CMA [facility] Start: 08-25-2023 End: 08-25-2023 ambulatory KOFI BETTS [facility] Start: 08-24-2023 End: 08-24-2023 ambulatory ALIS STEINBERG Not Available Start: 08-14-2023 End: 08-15-2023 ambulatory VALORIE ARIAS [facility] Start: 07-30-2023 End: 07-30-2023 ambulatory MEDINA [facility] Start: 07-27-2023 End: 07-27-2023 ambulatory MEDINA [facility] Start: 06-01-2023 End: 06-01-2023 ambulatory Kayla Reid Other [facility] Other Start: 06-01-2023 Office outpatient vi sit 15 minutes Kayla Reid [facility] Start: 05-25-2023 End: 05-25-2023 ambulatory ADELIADA SUBRAMANIAN Not Available Start: 04-27-2023 End: 04-27-2023 ambulatory [facility] Start: 03-05-2023 End: 03-05-2023 ambulatory [facility]agan [facility] Start: 03-05-2023 End: 03-05-2023 Subsequent hospital visit by physician Mohit Dejesus MD Work Phone: [facility] Start: 02-19-2023 End: 02-24-2023 ambulatory MOHIT Sebastian Croom [facility] Start: 01-12-2023 End: 01-12-2023 ambulatory [facility] Start: 10-28-2022 End: 10-29-2022 ambulatory DONNIE SHAMMO Facility:[facility] Start: 10-27-2022 End: 10-27-2022 ambulatory [facility] Start: 10-09-2022 ambulatory DONNIE SHAMMO Facility:[facility] Start: 09-18-2022 ambulatory PETERSON [facility] Start: 09-15-2022 End: 09-16-2022 ambulatory DONNIE SHAMMO Facility:[facility] Start: 09-14-2022 End: 09-14-2022 ambulatory DONNIE SHAMMO Facility:[facility] Start: 09-12-2022 End: 09-12-2022 ambulatory [facility] Start: 08-13-2022 ambulatory DONNIE SHAMMO Facility:[facility] 1 Start: 08-12-2022 End: 08-13-2022 ambulatory DONNIE SHAMMO Facility:[facility] Start: 07-22-2022 End: 07-23-2022 ambulatory ODNNIE SHAMMO Facility:[facility] Start: 07-11-2022 End: 07-12-2022 ambulatory DONNIE SHAMMO Facility:[facility] Start: 06-10-2022 Chart abstracting Jarad hemphill MD Work Phone: Hematology/Oncology Start: 06-04-2022 End: 06-04-2022 ambulatory DONNIE SHAMMO Facility:[facility] Start: 05-28-2022 Telephone encounter Chance stokes MD Work Phone: Cancer [facility] Comment on above: Appointment Start: 05-28-2022 End: 05-29-2022 ambulatory DONNIE SHAMMO Facility:[facility] Start: 05-19-2022 End: 05-20-2022 ambulatory DONNIE SHAMMO Facility:[facility] Start: 05-07-2022 ambulatory Rick STAPLES Facility :[facility] Start: 04-29-2022 End: 04-30-2022 ambulatory DONNIE SHAMMO Facility:[facility] Start: 04-29-2022 ambulatory DONNIE SHAMMO Facility:[facility] Start: 04-20-2022 Encounter for genera l adult medical examination without abnormal findings [facility] Start: 04-14-2022 ambulatory DONNIE SHAMMO Facility:[facility] Start: 04-14-2022 End: 04-15-2022 ambulatory DONNIE SHAMMO Facility:[facility] Start: 04-14-2022 End: 04-15-2022 Encounter for general adult medical examination without abnormal findings DONNIE SHAMMO Facility: Start: 04-10-2022 End: 04-11-2022 ambulatory DONNIE SHAMMO Facility:[facility] Start: 02-28-2022 End: 03-01-2022 ambulatory Peterson Jannette Facility:[facility] Start: 01-02-2022 End: 01-02-2022 Subsequent hospital visit by physician Kulwant Arenas MD Work Phone: [facility] Comment on above: No Show Start: 12-10-2021 End: 12-11-2021 ambulatory Peterson Jannette Facility:[facility] Start: 11-21-2021 End: 11-22-2021 ambulatory Peterson Jannette Facility:[facility] Start: 10-23-2021 End: 10-24-2021 amb[facility] Start: 10-23-2021 End: 10-23-2021 Patient [...] Detail Author Start: 08-08-2026 Lipid panel Lipids [facility] Start: 10-23-2024 Screening for malign ant neoplasm of cervix [facility] Start: 03-31-2024 Adult BMI Screening Adult BMI Screen ing [facility] Start: 03-31-2024 Tobacco Screening Tobacco Screening [facility] Start: 02-20-2024 Hemoglobin A1c measurement A1C test (Diabetic or Prediabetic) [facility] Start: 08-27-2023 End: 08-27-2023 Patient encounter procedure 08/27/2023 12:00 PM EST Office Visit [facility] [address] [place] [address] Tram Hahn MD [address] [place] [address] [facility] Start: 2023 Administration of varicella zoster vaccine Zoster (Shingles) Vaccine (1 of 2) [facility] Start: 03-05-2023 End: 03-05-2023 Impltj/rplcmt ithcl/edrl drug nfs prgrbl pump PAIN PUMP INSERTION REMOVAL Post laminectomy syndrome 03/05/2023 2:52 PM EDT [facility] Start: 02-20-2023 Influenza vaccination Influenza Vacc ine [facility] Start: 01-20-2023 Influenza vaccination Flu vaccine (# 1) [facility] Start: 10-14-2022 Creatinine measurement Creatinine [facility] Start: 10-14-2022 Potassium [Moles/vol ume] in Serum or Plasma Potassium [facility] Start: 02-20-2022 Influenza vaccination M [facility] Start: 01-08-2022 End: 01-08-2022 Admission to same day surgery center 01/08/2022 Surgery IP Unit Kulwant Arenas MD [address] [place] [address] DILATATION AND CURETTAGE HYSTEROSCOPY CAUTERY ABLATION-NOVASURE [facility] Comment on above: DILATATION AND CURET TAGE HYSTEROSCOPY CAUTERY ABLATION-NOVASURE Start: 01-08-2022 End: 01-08-2022 Hysteroscopy endometrial ablation DILATATION AND CURETTAGE HYSTEROSCOPY CAUTERY ABLATION DYSFUNCTIONAL UTERINE BLEEDING 01/08/2022 8:50 AM EDT [facility] Start: 01-08-2022 Subsequent hospital visit by physician 01/08/2022 Hospital Encounter IP Unit Kulwant Arenas MD [address] [place], [place] [id number] [facility] Start: 11-01-2021 End: 11-01-2021 Patient encounter procedure 11/01/2021 Office Visit Obstetrics and Gynecology Kulwant Arenas MD [address] [facility] [place] [id number] [facility] Start: 11-01-2021 End: 11-01-2021 Professional / ancillary services management 11/01/2021 Ancillary Procedure Obstetrics and Gynecology [facility] Start: 06-22-2021 DEPRESSION ASSESSMENT DEPRESSION ASS ESSMENT [facility] Start: 2018 COLOGUARD (FIT-DNA) COLOGUARD (FIT-D NA) [facility] Start: 2018 Colonoscopy COLONOSCOPY [facility] Start: 2018 COLORECTAL CANCER SCREENING COLORECTAL CANCER SCREENING [facility] Start: [address] COLONOGRAPHY [facility] Start: 2018 DIABETES SCREEN DIABETES SCREEN [facility] Start: 2018 FECAL OCCULT BLOOD FECAL OCCULT BLOO D [facility] Start: 2018 LIPID SCREEN LIPID SCREEN [facility] Start: 2018 Screening for malign ant neoplasm of colon [facility] Start: 2018 SIGMOIDOSCOPY SIGMOIDOSCOPY [facility] Start: 2013 Mammography MAMMOGRAM [facility] Start: 2013 Screening for malign ant neoplasm of breast Breast cancer screen [facility] Start: 2008 Diabetes screen Diabetes screen [facility] Start: 2003 HPV TESTING HPV TESTING [facility] Start: 2003 Screening for malign ant neoplasm of cervix [facility] Start: 1994 PAP TESTING PAP TESTING [facility] Start: 1994 Screening for malign ant neoplasm of cervix Pap smear [facility] Start: 1992 DTaP,Tdap and Td Vaccines (1 - Tdap) DTaP,Tdap and Td Vaccines (1 - Tdap) [facility] Start: 1992 DTaP/Tdap/Td vaccine (1 - Tdap) DTaP/Tdap/Td vaccine (1 - Tdap) [facility] Start: 1992 Urine microalbumin profile DTAP,TDAP,TD (1 - Tdap) [facility] Start: 1991 Adult BMI Follow Up Plan Adult BMI Follow Up Plan [facility] Start: 1991 Hepatitis C screening Hepatitis C sc [facility] Start: 1991 HEPATITIS C SCREENING HEPATITIS C SC [facility] Start: 1991 HIV SCREENING HIV SCREENING [facility] Start: 1988 HIV screening HIV screen [facility] Start: 1985 Depression Screen Depression Screen [facility] Start: 1985 Depression Screening Depression Scre ening [facility] Start: 1983 Lipid panel Lipids [facility] Start: 1979 Pneumococcal 0-64 ye ars Vaccine (1 - PCV) Pneumococcal 0-64 years Vaccine (1 - PCV) [facility] Start: 1978 COVID-19 Vaccine (1) COVID-19 Vaccin e (1) [facility] Start: 01-02-1974 COVID-19 Vaccine (#1) COVID-19 Vacci ne (#1) [facility] Start: 1973 HEPATITIS B (1 of 3 - 3-dose series) HEPATITIS B (1 of 3 - 3-dose series) [facility] Start: 1973 Hepatitis B vaccine (1 of 3 - 3-dose series) Hepatitis B vaccine (1 of 3 - 3-dose series) [facility] Start: 1973 Tobacco Counseling Tobacco Counselin [facility] End: 03-06-2023 Blood glucose - POCT Blood glucose - POCT Point of Care Testing Routine One Time for 1 Occurrences starting 03/06/2023 until 03/06/2023 [employer] Comment on above: One Time for 1 Occur rences starting 03/06/2023 until 03/06/2023 End: 10-23-2021 Cytopathology procedure, preparation of smear, genital source PAP SMEAR Lab Routine Women's annual routine gynecological examination 1 Occurrences starting 10/23/2021 until 10/23/2021 [employer] Phone: Comment on above: 1 Occurrences starti ng 10/23/2021 until 10/23/2021 End: 03-05-2023 INITIATE PACU OXYGEN THERAPY PROTOCOL Initiate PACU Oxygen Therapy Protocol Respiratory Care Routine Continuous until discontinued starting 03/05/2023 [employer] Phone: Comment on above: Continuous until dis continued starting 03/05/2023 Oxygen therapy [[facility] Data Set] Initiate Oxygen Therapy Protocol Respiratory Care Routine As Needed until discontinued starting 03/05/2023 [facility] Phone: Comment on above: As Needed until disc ontinued starting 03/05/2023 End: 03-06-2023 , urine , urine Lab Routine Tomorrow AM for 1 Occurrences starting 03/06/2023 until 03/06/2023 [facility] Comment on above: Tomorrow AM for 1 Oc currences starting 03/06/2023 until 03/06/2023 End: 10-23-2021 Surgical Pathology Surgical Pathology Lab Routine Irregular menstrual bleeding 1 Occurrences starting 10/23/2021 until 10/23/2021 [facility] Phone: Comment on above: 1 Occurrences starti ng 10/23/2021 until 10/23/2021 End: 10-23-2021 SURGICAL PATHOLOGY REPORT SURGICAL PATHOLOGY REPORT Lab Routine Once for 1 Occurrences starting 10/23/2021 until 10/23/2021 [employer] Phone: Comment on above: Once for 1 Occurrenc es starting 10/23/2021 until 10/23/2021 Jeff thomas Payers Date Payer Category Payer Medicaid MEDICAID [id number] MEDICAID [id number] 2021-Present [phone] [address] [place] [address] Medicaid [id number] 2013 Medicare [id number] [id number] 1975 Unknown [id number] 2.16.840.1.773129.3.579.2.173 1975 Unknown [id number] 2.16.840.1.832087.3.579.2.647 1975 Unknown [id number] 2.16.840.1.011067.3.579.2.647 1975 Unknown [id number] 2.16.840.1.293598.3.579.2.647 1975 Unknown [id number] 2.16.840.1.896123.3.579.2.727 1975 Unknown [id number] 2.16.840.1.675847.3.579.2.727 1975 Unknown [id number] 2.16.840.1.940389.3.579.2.593 1975 Unknown [id number] 2.16.840.1.111301.3.579.2.593 1975 Unknown [id number] 2.16.840.1.900553.3.579.2.593 1975 Unknown [id number] 2.16.840.1.628752.3.579.2.593 1973 Unknown [id number] 2.16.840.1.310162.3.579.2.593 1973 Unknown [id number] 2.16.840.1.907964.3.579.2.593 1973 Unknown [id number] 2.16.840.1.701015.3.579.2.593 1973 Unknown [id number] 2.16.840.1.212342.3.579.2.593 1973 Unknown [id number] 2.16.840.1.381608.3.579.2.593 1973 Unknown [id number] 2.16.840.1.530750.3.579.2.593 1973 Unknown [id number] 2.16.840.1.412334.3.579.2.593 1973 Unknown [id number] 2.16.840.1.474122.3.579.2.593 1973 Unknown [id number] 2.16.840.1.416280.3.579.2.593 1973 Unknown [id number] 2.16.840.1.361033.3.579.2.593 1973 Unknown [id number] 2.16.840.1.096272.3.579.2.177 1973 Unknown [id number] 2.16.840.1.443833.3.579.2.177 1973 Unknown [id number] 2.16.840.1.832637.3.579.2.1259 1973 Unknown [id number] 2.16.840.1.851363.3.579.2.1259 1959 Medicaid [id number] 1.2.840.478877.1.13.239.2.7.3.6 [id number] 1961 Medicare [id number] 1.2.840.818198.1.13.239.2.7.3.6 [id number] 1959 Self-pay Unknown [id number] 2.16.840.1.400523.3.579.2.593 Social History Date Type Detail Facility Start: 10-23-2021 End: 03-31-2023 Tobacco smoking status NHIS Smokes tobacco daily [facility] Phone: History of tobacco use Cigarette Smoker [employer] Phone: Start: 08-02-2020 End: 10-23-2021 Cigarettes smoked current (pack per day) - Reported 1.5 [facility] Phone: Start: 10-23-2021 End: 03-31-2023 Tobacco use and exposure Smokeless tobacco non-user [facility] Phone: Start: 10-23-2021 End: 11-01-2021 Alcohol intake Ex-drinker (finding) [facility] Phone: Start: 1975 Sex Assigned At Not on file [employer] Phone: Start: 02-19-2017 [facility] tobacco smoker [facility] Start: 03-11-2017 End: 06-10-2022 Alcohol intake Current non-drinker of alcohol (finding) [facility] Start: 02-19-2017 End: 06-10-2022 Tobacco Comment 23 cigarettes to 2 pks per day [facility] History of tobacco use Passive smoker [facility] Start: 03-05-2023 End: 03-31-2023 Alcohol intake Current drinker of alcohol (finding) [facility] Start: 08-02-2020 End: 02-19-2023 Tobacco use panel [facility] Start: 02-19-2023 Alcohol Comment very rare- may be twice a year [facility] Childcare Unknown [facility] Start: 10-29-2021 Alcohol Comment rare [facility] Medical Equipment Procedure Code Equipment Code Equipment Origin al Text Equipment Identifier Dates Kit Catheter Rev Seg W Attch Sutureless Assistant Import Manager Conn 2 Cllt Rul - [id number] Start: 03-05-2023 Clinical Notes 01-02-2022 to 09-03-2023 Telephone Encounter - Fatmata Barger, [facility] - 08/26/2023 9:55 AM ESTTelephone Encounter - Fatmata Barger, [facility] - 08/26/2023 9:55 AM EST Note [...] back surgeries, first in [address] Dufyf. States there were complications during that surgery [...] CHF (congestive heart failure), NYHA class I ([facility] [place]) Chronic mental illness COPD (chronic obstructive pulmonary disease) ([facility]) Dyslipidemia Heart attack ([facility]) Hypertension Neuropathy Past Surgical History: Procedure Laterality [...] in the morning (more content not included)... [facility] 08-26-2023 Miscellaneous Notes RADHA CHAPMAN PT WANTS TO CANCEL APPT SCHEDULED FOR 08/27/2023. PHONED PT AND LM ON TO CONTACT OFFICE IF SHE DOES INDEED WANT TO CANCEL AND RESCHEDULE THIS APPT. documented in this encounter [facility] 08-26-2023 Telephone encounter Note RADHA CHAPMAN PT WANTS TO CANCEL APPT SCHEDULED FOR 08/27/2023. PHONED PT AND LM ON TO CONTACT OFFICE IF SHE DOES INDEED WANT TO CANCEL AND RESCHEDULE THIS APPT. [facility] 08-25-2023 Note [facility] II Continue GDMT- lasix 40 mg daily, and aldactone-- Diuretic therapy Monitor daily weights, I&O, fluid restriction 1.5-2L/day, renal function and electrolytes- [facility] 08-25-2023 Note Hypertension is well controlled Continue lisinopril, toprol, aldactone [facility] 08-25-2023 Note Recommended smoking cessation, she is starting chantix for smoking cessation as prescribed from DR Phan [facility] 08-25-2023 Note Continue lipitor 10 mg daily [facility] 08-25-2023 Note Order echocardiogram to assess cardiac function, RV size and function, Rt sided pressures, and valvular function [facility] 08-25-2023 Note New patient here to establish care. She was seen by [facility] cardiology in Mar 2023. States she has hx of ND years ago in [place], but denies stents. Has hx of CHF, with last echo being done in Jul 2021 at [facility]. C/o SOB and fatigue. Has had chest [...] All other systems reviewed and are negative. [facility] 08-25-2023 Note [facility] CARDIOLOGY PROGR ESS NOTE HPI: Radha Mendoza is a 48 y.o. female here as new pt to establish care. HPI 47-year-old female with history of Chronic heart failure with preserved ejection fraction, morbid obesity, hypertension, dyslipidemia, history of chronic tobacco abuse, angiographically normal coronary arteries. New patient here to establish care. She was seen by [facility] cardiology in Mar 2023. States she has hx of ND years ago in [place], but denies stents. Has hx of CHF, with last echo being done in Jul 2021 at [facility]. C/o SOB and fatigue. Has had chest [...] Past Medical History: Diagnosis Date Angina pectoris ([facility]) Bipolar disorder, unspecified ([facility]) Cardiomyopathy CHF (congestive heart failure) ([facility]) Chronic back pain COPD (chronic obstructive pulmonary disease) ([facility]) Edema Hypertension Major depressive disorder Migraine headache Morbid obesity ([facility]) Nausea & vomiting Nicotine dependence, cigarettes, uncomplicated [...] normal. Mouth/Throat: Mouth (more content not included)... [facility] 07-30-2023 Note Patient ID: Radha Mendoza is a 48 y.o. female. Therapeutic injection carpal tunnel Date/Time: 07/30/2023 2:38 PM Performed by: Medina Montes MD Authorized by: Medina Montes MD Consent: Consent obtained: Verbal Consent given by: Patient Risks, benefits, and alternatives were discussed: yes Risks discussed: Bleeding and incomplete drainage Alternatives discussed: No treatment Marlow protocol: Procedure explained and questions answered to [...] Tolerated well, no immediate complications [facility] 07-30-2023 Note Attestation signed by Medina Montes [...] COPD/CESARIO on CPAP, tobacco dependence, history of ND, CHF, PTSD, bipolar, anxiety and morbid obesity. [...] orders for this visit: Seronegative rheumatoid arthritis ([facility]) - folic acid (Folvite) 1 mg tablet; Take 1 tablet (1 mg) by mouth in the morning. - methotrexate 2.5 mg tablet; Take 10 tablets (25 mg) by mouth once weekly. Methotrexate, long term care phlebotomist, current use - folic acid (Folvite) 1 [...] Morbid obesity with BMI of 50.0-59.9, adult ([facility]) Other orders - Injection tendon or ligament: L carpal tunnel 48 y.o. year old female with history of bilateral hand and right knee OA status post total knee replacement complicated by cellulitis, lumbar back surgery, migraine headaches, COPD/CESARIO on CPAP, history of ND, CHF, PTSD, bipolar, anxiety and morbid obesity presenting for routine follow up. Seronegative rheumatoid arthritis Long-term use of methotrexate Medication regimen: Methotrexate 25 mg (10 tabs of 2.5 mg) weekly, folate supplementation. *Worsened disease with DAS28 (more content not included)... [facility] 07-27-2023 Note Attestation signed by Medina Montes [...] migraine headaches, COPD/CESARIO on CPAP, history of ND, CHF, PTSD, bipolar, anxiety and morbid obesity [...] migraine headaches, COPD/CESARIO on CPAP, history of ND, CHF, PTSD, bipolar, anxiety and morbid obesity [...] hour(s)). No follow-ups on file. [facility] 06-01-2023 Evaluation note Encounter Date Diagnosis Assessment [...] your primary care provider in 3-5 days. [facility] Other 11-06-2023 Note Attestation signed by Medina [...] migraine headaches, COPD/CESARIO on CPAP, history of ND, CHF, PTSD, bipolar, anxiety and morbid obesity [...] migraine headaches, COPD/CESARIO on CPAP, history of ND, CHF, PTSD, bipolar, anxiety and morbid obesity [...] Rheumatology Fellow (more content not included)...[facility]09-14-2023 Hospital Discharge instructions* Discharge Instructions* Nichelle Cunha [...] saturates the bandage [facility] Attestation signed by Medina Montes [...] migraine headaches, COPD/CESARIO on CPAP, history of ND, CHF, PTSD, bipolar, anxiety and morbid obesity [...] migraine headaches, COPD/CESARIO on CPAP, history of ND, CHF, PTSD, bipolar, anxiety and morbid obesity [...] seen wi (more content not included)...[facility]05-08-2023 Note Attestation signed by Medina Montes MD [...] migraine headaches, COPD/CESARIO on CPAP, history of ND, CHF, PTSD, bipolar, anxiety and morbid obesity [...] migraine headaches, COPD/CESARIO on CPAP, history of ND, CHF, PTSD, bipolar, anxiety and morbid obesity [...] RTC in 2 allie (more content not included)...[facility] 09-18-2022 NoteOrthopedic Surgery Subjective Chief complaint: Chief [...] CHF (congestive heart failure), NYHA class I ([facility]) Chronic mental illness COPD (chronic obstructive pulmonary disease) ([facility]) Heart attack ([facility]) Neuropathy Objective General examination: Patient is Aox3 [...] of the aforementioned history prepared by the reading practice provider, and I personally performed the clinical examination of the patient. I discussed the treatment plan with the patient. Peterson Bhatia MD[facility] Note Attestation signed by Cristina Avalos MD [...] migraine headaches, COPD/CESARIO on CPAP, history of ND, CHF, PTSD, bipolar, anxiety and morbid obesity [...] migraine headaches, COPD/CESARIO on CPAP, history of ND, CHF, PTSD, bipolar, anxiety and morbid obesity [...] wrists - (more content not included)...[facility]03-24-2023 Note Attestation signed by Cristina Avalos MD [...] Mendoza is a 47 y.o. female. Procedures Marlow Protocol Documentation for Invasive Procedures List all [...] Median nerve enlarged 13 mm [facility]02-22-2023 NotePROCEDURE: XR HIPS MARTHA 5V W PELVIS HISTORY: Joint pain COMPARISON: None. FINDINGS: BONES:No fracture, acute abnormality, or significant arthropathy. SOFT TISSUES:No visible soft tissue swelling. EFFUSION:None visible. OTHER: Mechanical fusion and degenerative changes of lower lumbar spine. IMPRESSION: 1. No acute bone abnormality or significant degenerative changes of the hip joints. Electronically authenticated by: GILL MORENO Date: 2022-08-13 10:48[facility]12-07-2022 Miscellaneous Notes* Telephone Encounter - Bandar Romanoheladio - 05/28/2022 2:21 PM EST Pt is being referred by [facility] dx Breast Ca. Per Karina Antunez schedule new pt consult once we have a bxdate. They will call us when it is scheduled. [facility] History of Present illness Narrative* Katy Guo RN - 01/02/2022 9:00 AM EDT Patient did not show for appointment at 9am. Left message to call to reschedule. Dr. Arenas office notified. [facility] [employer] Phone: evaluation note* Diagnosis Irregular menstrual bleeding Irregular menstrual cycle Women's annual routine gynecological examination documented in this encounter [employer] Phone: History general Narrative - Reported* Type [...] pump battery change Hospitalization History see above cocone Other InstructionsNot on filedocumented in this encounter [employer] Summary Purpose Family History No Family [...] Care Teams (unrecognized sec tion and content) Dining Car Server Relationship Specialty Start Date End Date Wally Ghosh MD [address] [place] [address] PCP - General 11/06/21 Dining Car Server Relationship Specialty Start Date End Date Mingo Thapa [address] [facility] [address] [place] [address] PCP - General Family Medicine 02/19/17 Dining Car Server Relationship Specialty Start Date End Date Mingo Thapa [address] [facility] [address] [place] [address] PCP - General Family Medicine 02/19/17 Dining Car Server Relationship Specialty Start Date End Date Donnie Kaminski APRN - VIDEO TECHNICIAN [address] [place] [address] PCP - General Nurse Practitioner 02/19/23 Dining Car Server Relationship Specialty Start Date End Date Wally Ghosh MD [address] [place] [address] PCP - General Internal Medicine 08/08/21 INFORMATION SOURCE (unrecogn ized section and content) DATE CREATED AUTHOR 01/08/2022 [facility] DATE CREATED AUTHOR AUTHOR'S ORGANIZ ATION 03/03/2022 [facility] DATE CREATED AUTHOR AUTHOR'S ORGANIZ ATION 05/02/2022 [facility] DATE CREATED AUTHOR AUTHOR'S ORGANIZ ATION 05/31/2022 [facility] DATE CREATED AUTHOR AUTHOR'S ORGANIZ ATION 10/29/2022 [facility] DATE CREATED AUTHOR AUTHOR'S ORGANIZ ATION 03/07/2023 [facility] DATE CREATED AUTHOR AUTHOR'S ORGANIZ ATION 07/15/2023 [facility] DATE CREATED AUTHOR AUTHOR'S ORGANIZ ATION 08/25/2023 [facility] DATE CREATED AUTHOR AUTHOR'S ORGANIZ ATION 09/05/2023 [facility] Source Comments (unrecognize d section and content) In the event this informatio n is protected by the Federal Confidentiality of Alcohol and Drug Abuse Patient Records regulations: The Federal rules restrict any use of the information to criminally investigate or prosecute any alcohol or drug abuse patient.[facility] Hospital[facility] the event this information is protected by the Federal Confidentiality of Alcohol and Drug Abuse Patient Records regulations: The Federal rules restrict any use of the information to criminally investigate or prosecute any alcohol or drug abuse patient.[facility] Reason for Visit (unrecogniz ed section and content) Reason Comments Appointment Specialty Diagnoses / Procedures Referred By Adriana t Referred To Contact Diagnoses Post laminectomy syndrome Post laminectomy syndrome [M96.1] Procedures NC IMPLTJ/RPLCMT ITHCL/EDRL DRUG NFS PRGRBL PUMP INTERTHECAL PAIN PUMP REPLACEMENT Mohit Dejesus MD [address] [place] [address] [facility] [address] [place] [address] Referral ID Status Reason Start Date Expiration Date Visits Re quested Visits Authorized [id number] 1 1 Scheduled Active and Recently Administ [...] mL/hr, Administer over 60 Minutes, ONCE, On [place] 03/05/23 at 1315, For 1 dose, Pre-op (day of surgery) 1501 (New Bag - Prov ider: Gunjan East, BRENDA - [employer] TECHNICIAN - Comment: given over 1 hr) Continuous [...] Pre-op (day of surgery) bupivacaine-EPINEPHrine (MARCAINE-w/EPINEPHRINE) 0.5% -1:[id number] 30 mL, lidocaine 1 % 40 mL [...] BE BASED ON THE PRIMARY CLINICAL RECORDS. [employer] provides no warranty or guarantee of the accuracy or completeness of information in this document.
--- NOTE | 2023-09-07 13:00 | CA_ITS ---
Patient Name: FIDELINA FONTENOT MR#: [id number] : 1975 Exam Date: 09/07/2023 Ordering Doctor: KOFI BETTS ECHOCARDIOGRAM REPORT PROCEDURE: CA ECHO DOPPLER COMPLETE INDICATIONS: CHF with low ejection fraction, hypertension, diabetes, h/o MT, smoker COMPARISON: None. DESCRIPTION: COMPLETE ECHOCARDIOGRAM Real-time transthoracic echocardiography with 2D, M-mode, spectral and color flow Doppler performed. QUALITY: Technical quality was good. 61 , 272#, BSA 2.15 m2, BP 106/70 LEFT VENTRICLE: Moderate dilatation. Borderline left ventricular hypertrophy. LV EF: Global left ventricular systolic function is difficult to assess but appears preserved; visually estimated ejection fraction is 55%. Unable to assess regional wall motion abnormalities. DIASTOLIC: Normal diastolic function. ATRIAL SEPTUM: Inadequately seen. LEFT ATRIUM: Normal chamber size. RIGHT ATRIUM: Moderate dilatation. RIGHT VENTRICLE: Mild dilatation. Normal right ventricular systolic function. TRICUSPID VALVE: Normal mobility and thickness. No stenosis with trivial regurgitation. Doppler studies reveal mildly (35-45) elevated right sided pressures. RVSP 38 mmHg MITRAL VALVE: Normal mobility and thickness. No evidence of mitral valve stenosis. There is no mitral annular calcification. Trivial mitral regurgitation. AORTIC VALVE: Normal trileaflet appearance. No visible sclerosis. Normal leaflet mobility. No evidence of aortic valve stenosis. No aortic regurgitation. AORTIC ROOT: Normal diameter and appearance. PULMONIC VALVE: Normal thickness and mobility. No stenosis. Trivial regurgitation. PERICARDIUM: No evidence of pericardial effusion. IVC: IVC is normal in size, does not collapse. CONCLUSION: 1. Global left ventricular systolic function is difficult to assess but appears preserved; visually estimated ejection fraction is 55% 2. Right ventricle is mildly dilated with normal systolic function 3. Right atrium is dilated 4. Normal diastolic function 5. Mildly elevated right ventricular systolic pressure; RVSP 38 mmHg 6. Valves are poorly seen; no significant valvular abnormalities Adult Echocardiography Procedure Report Left Ventricle LVEDD (3.7 - 5.6 cm): 5.92 cm LVESD (2.2 - 4.0 cm): 4.62 cm LVIVS thickness (0.6 - 1.2 cm): 0.94 cm LVPW thickness (0.5 - 1.0 cm): 1.14 cm e': 0.06 m/s E - e': 15.74 LVOT Max Gradient: 5.41 mm[Hg] LVOT Area (cm2): 1.16 m/s Peak Velocity (LVOT): 1.16 m/s Mean Velocity (LVOT): 0.75 m/s LVOT Diameter 1.99 cm Left Atrium LA Volume Index (2D A2C): 31.46 ml/m2 Left Atrium Systolic Dimension: 4.38 cm Mitral Valve MV E to A Ratio: 1.10 Mitral Valve A-Wave Peak Velocity: 0.84 m/s Mitral Valve E-Wave Peak Velocity: 0.93 m/s Right Ventricle Aorta AO Root Diam: 2.89 cm Aortic Valve AoV Area (Peak Manolo): 2.42 cm2, 2.42 cm2 AoV Area (VTI): 2.31 cm2, 2.31 cm2 Peak Velocity(Antegrade Flow): 1.50 m/s Peak Gradient(Antegrade Flow): 9.03 mm[Hg] Mean Velocity(Antegrade Flow): 0.99 m/s Mean Gradient(Antegrade Flow): 4.61 mm[Hg] Velocity Time Integral: 32.37 cm Tricuspid Valve Peak Velocity (Regurgitant Flow): 2.76 m/s, 2.58 m/s Pulmonic Valve Mean Gradient: 3.50 mm[Hg] Mean Velocity: 0.87 m/s Peak Velocity: 1.31 m/s, 1.29 m/s Peak Gradient: 6.88 mm[Hg], 6.65 mm[Hg] Right Atrium Right Atrium Systolic Pressure: 68.75 ml, 68.75 ml Dictated by: Dorota Szymanski M.D. on 09/08/2023 at 12:21 Approved by: Dorota Szymanski M.D. on 09/08/2023 at 12:24
== END 2023-09-07 12:38 | disposition home or self-care (01) ==
LOC: CARD 12:37
PROVIDERS: PCP Nurse Practitioner Primary Care; Visit Provider Nurse Practitioner
DX: I11.0 Hypertensive heart disease with heart failure (principal); I50.41 Acute combined systolic (congestive) and diastolic (congestive) heart failure; R06.09 Other forms of dyspnea
CPT/HCPCS: 93306

== ENCOUNTER 2023-09-10 13:54 | Outpatient (OUT) | payer MEDICARE, SELFPAY ==
--- NOTE | 2023-09-10 14:00 | CT_ITS ---
[address] [address] Patient Name: FIDELINA FONTENOT MRN: [id number] date: 1975 Sex: F Assigned Patient Location: CT Current Patient Location: CT Accession/Order Number: [id number] Exam Date: 09/10/2023 14:30 Report Date: 09/10/2023 15:40 At the request of: FELIX HERNANDEZ Procedure: CT lumbar spine wo con EXAM: CT lumbar spine wo con CLINICAL INDICATION: Spondylolisthesis Of Lumbar Region COMPARISON: None TECHNIQUE: Multiple axial images were obtained of the lumbar spine. Soft tissue and bone windows in coronal and sagittal planes were obtained and reviewed. Dose reduction techniques were achieved by using automated exposure control and/or adjustment of mA and/or kV according to patient size and/or use of iterative reconstruction technique. FINDINGS: Trauma: No fracture, traumatic malalignment, facet dislocation, or discrete epidural hemorrhage. Alignment: Grade 1 anterolisthesis of L5 on S1. Vertebral Body Heights: Maintained. Soft Tissues: Normal. Postoperative Changes: Posterior instrumented fusion from L4 to S1. Hardware is intact and screws are well seated. No evidence of hardware complication. Solid osseous fusion along the posterior elements. Pain pump or stimulator lead enters the dorsal spinal canal at L2-L3 and courses cephalad. Spondylotic Changes: Multilevel spondylotic changes include varying degrees of intervertebral disc height loss, endplate sclerosis, osteophytic ridging, and facet/ligamentum flavum hypertrophy. Intervertebral disc height loss is most pronounced at L3-L4 with vacuum disc phenomenon. Slight disc osteophyte complex at T12-L1. Small disc bulges at L1-L2 and L3-L4. Suspected at least moderate spinal canal narrowing at L3-L4, contributed to by disc bulge and facet/ligamentum flavum hypertrophy. There is bilateral foraminal narrowing at L3-L4. CT/CT lumbar spine wo con IMPRESSION: 1. No acute osseous abnormalities in the lumbar spine. 2. Multilevel spondylotic changes. Suspected at least moderate spinal canal narrowing at L3-L4 is contributed to by disc bulge and facet/ligamentum flavum hypertrophy. 3. Intact posterior instrumented fusion from L4 to S1. No evidence of hardware completion. Electronically authenticated by: PRIYANK ADRIAN Date: 09/10/2023 15:40
== END 2023-09-10 13:55 | disposition home or self-care (01) ==
LOC: CT 13:54
PROVIDERS: PCP Nurse Practitioner Primary Care; Visit Provider Nurse Practitioner Family
DX: M43.16 Spondylolisthesis, lumbar region (principal)
CPT/HCPCS: 72131

== ENCOUNTER 2023-09-14 08:35 | Observation (INO) | payer MEDICARE, SELFPAY ==
[2023-09-14] VITALS (10 sets, daily range): BP systolic 107–166; BP diastolic 73–85; PULSE 60–81; RESP 18–20; TEMP 36.6–36.9; O2SAT 90–100; BMI 51.8; BMI 51.9
--- NOTE | 2023-09-14 08:54 | US_ITS ---
The [address] [address] Patient Name: FIDELINA FONTENOT MRN: [id number] date: 1975 Sex: F Assigned Patient Location: ED.MAIN Current Patient Location: ER Accession/Order Number: [id number] Exam Date: 09/14/2023 08:55 Report Date: 09/14/2023 10:02 At the request of: ADAM TUCKER Procedure: US venous doppler LE RT EXAM: US venous doppler LE RT HISTORY: Redness, pain, swelling COMPARISON: None. TECHNIQUE: Grayscale, color and Doppler FINDINGS: Region: Right leg Thrombus: Echogenic thrombus identified in mid to distal posterior tibial vein Flow: Absent flow corresponding to thrombus Compressibility: Absent compressibility corresponding to thrombus Augmentation: Normal augmentation corresponding to thrombus Findings relayed by the technologist to the emergency room US/US venous doppler LE RT IMPRESSION: Occlusive deep vein thrombus identified in the mid to distal posterior tibial vein Electronically authenticated by: AGUSTIN DIMAS Date: 09/14/2023 10:02
--- OUTSIDE RECORDS SUMMARY | 2023-09-14 08:58 | XMS_ITS | CCD ---
Author Organization [facility] Care Team Providers Care Bridge Maintenance Worker Name Role Phone Unavailable Primary Care Provider Unavailabl e Faisal Nix MD, Wally Primary Care Provider [facility]ULW[facility]NAS Referring Unavailable Jannette, Peterson Admitting Unavailable Jannette, Peterson Attending Unavailable ROSA, CM Referring Unavailable ROSA, CM Primary Care Unavailable Jannette, Peterson Admitting Unavailable Jannette, Peterson Attending Unavailable SELF, REFERRED Referring Unavailable ROSA CM Primary Care Unavailable Jannette, Peterson Admitting Unavailable Jannette, Peterson Attending Unavailable ROSA CM Referring Unavailable LEE, CM Primary Care Unavailable SHAMMO, DONNIE Referring Unavailable Rcik STAPLES Attending Unavailable Rick STAPLES Attending Unavailable Mingo Thapa Primary Care Provider SHAMMO, DONNIE Admitting Unavailable SHAMMO, DONNIE Attending Unavailable SHAMMO, DONNIE Primary Care Unavailable AGUSTIN ADAMSON Consulting Unavailable SHAMMO, DONNIE Consulting Unavailable SHAMMO, DONNIE Admitting Unavailable SHAMMO, DONNIE Attending Unavailable SHAMMO, DONNIE Primary Care Unavailable SHAMMO, DONNIE Consulting Unavailable SHAMMO, DONNIE Primary Care Unavailable REQUEST, DR JERICA LISTED Consulting Unavaila ble REQUEST, DR PIZANO LISTED Attending Unavaila ble REQUEST, DR PIZANO LISTED Admitting Unavaila ble SHAMMO, DONNIE Admitting [...] Attending Unavailable MISC, DR REYES Admitting Unavailable SJIPPAGUSTIN PRESLEY Consulting Unavailable SHAMMO, DONNIE Primary Care Unavailable SHAMMO, DONNIE Attending Unavailable SHAMMO, DONNIE Admitting Unavailable Shammo OPERATIONS ADMINISTRATIVE ASSISTANT - LICENSED ESTHETICIAN, [facility] Primary Care Provi orly MOHIT DEJESUS Admitting Unavailable MOHIT DEJESUS Attending Unavailable SHAMMO, [facility] Primary Care Unavailable MOHIT DEJESUS Referring Unavailable SHAMMO, [facility] Primary Care Unavailable Franklin, Kayla Unavailable ALIS MENDEZ Attending Unavailable ADELAIDA SUBRAMANIAN Attending Unavailable Faisal Nix MD, Wally Primary Care Provider SARA Hernandez Attending Unavailable PETERSON BHATIA Attending Unavailable KIM GARCIA Attending Unavailable KIM GARCIA Attending Unavailable KIM GARCIA Attending Unavailable MEDINA MONTES Attending Unavailable MEDINA MONTES Attending Unavailable CASANDRA HERNANDEZ Attending Unavailable KIM GARCIA Attending Unavailable MARY, CASANDRA Referring Unavailable VALORIE ARIAS Referring Unavailable BRITTNEY BETTS Attending Unavailable Allergies Allergy Classification Reported Allergen(s) Allergy Type Date of Onset Reaction(s) Facility (5 sources) Doxycycline; Translations: [DOXYCYCLINE] Drug Allergy 7 [facility] (6 sources) Oxytocin; Translations: [OXYTOCIN] Drug Allergy 4 [facility]aphylaxis [facility] Work Phone: (5 sources) SUMAtriptan; Translations: [SUMATRIPTAN] Drug Allergy 7 Other (See Comments) [employer] Work Phone: (1 source) Desonide Drug Allergy 1 [facility] (3 sources) Doxycycline Drug Allergy 0 [facility] (4 sources) Morphine; Translations: [MORPHINE] Drug Allergy 7 [facility] (4 sources) NSAIDs; Translations: [NSAIDS (NON-STEROIDAL ANTI-INFLAMMATO RY DRUG)] Drug allergy (disorder) 0 [facility] (2 sources) Oxytocin Drug Allergy 0 Unknown [facility] (4 sources) Plasmin Drug Allergy 9 Unknown [facility] (3 sources) Doxycycline Drug Allergy 7 [facility] (4 sources) Non-steroidal anti-inflammato ry agent Drug Allergy 7 Other: See Comments [facility] (3 sources) SUMAtriptan Drug Allergy 7 Other: See Comments [facility] (2 sources) Oxytocin Drug Allergy [address] [facility] Repository (3 sources) dulaglutide; Translations: [DULAGLUTIDE] Drug Allergy 3 Nausea And Vomiting [facility] [employer] [facility] (1 source) dulaglutide Drug Allergy vomiting [employer] Other (1 source) ADHESIVE TAPE-SILICONES; Translations: [ADHESIVE TAPE-SILICONES] Propensity to adverse reactions to drug (disorder) 4 [facility] Repository Medications Current Medications Medication Drug Class(es) [...] 0 09/04/2021 Active take 1 tablet by every twenty-four hours in the morning metoprolol [...] 1 tablet by mouth in the mo rn spironolactone (ALDACTONE) 25 mg tablet Take 1 [...] by mouth every 6 hours as needed. [id number] 200 actuat albuterol 0.09 mg/actuat metered dose inhaler (3 sources) beta2-Adrenergic Agonist Start: 05-16-2022 take 2 puff(s) by mouth every four hours albuterol HFA (PROVENTIL HFA, VENTOLIN HFA) 90 mcg/actuation inhaler INHALE 2 PUFFS BY MOUTH EVERY 4 HOURS IF NEEDED FOR SHORTNESS OF BREATH 0 05/16/2022 Active Start: 08-09-2021 take 2 puff(s) by mo uth every four hours as needed albuterol sulfate HFA 108 (90 Base) MCG/ACT inhaler INHALE 2 PUFFS BY MOUTH EVERY 4 HOURS NEEDED 0 08/09/2021 Active Comment on above: INHALE 2 PUFFS BY MO UTH EVERY 4 HOURS IF NEEDED FOR SHORTNESS [...] Comment on above: Take 1 tablet by [facility] once daily. brexpiprazole 2 mg oral tablet [...] to affected area three times daily. capsaicin 0.761376 mg/mg / lidocaine 0.045 mg/mg / menthol [...] mg Not-Taking/PRN take 1 capsule by mo [facility] once daily, then take 4 capsules [...] SITE] Onset: 08-16-2022 Unclassified (1 source) senior care (current) use of 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 agent; Translations: [senior care (current) use of 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 agent] Onset: 07-29-2023 [...] 10-29-2021 Episodic Other aftercare (2 sources) Other [facility] (current) drug therapy; Translations: [Other oysterman (current) drug therapy] Onset: 10-27-2022 Episodic Other [...] Onset: 10-29-2021 10-29-2021 Episodic Unclassified (1 source) technician terminal and repeater (current) use of 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 agent; Translations: [technician terminal and repeater (current) use of 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 agent] Onset: 07-30-2023 Results Test Name Value Interpretation Reference Range Facility 36on 09-09-20[address] Phan's nurse and she is established with him, but is very noncompliant. She has an apt with him this coming Thursday. Her last PFT's were in Mar 2022. We did not know about the surgery clearance. I was thinking we did. Dr. Mendez's office called and asked for clearance. She's scheduled with him next week (09/16) for hysterectomy. [facility] 36 Regarding echo performed on 09/07/2023: Ginny, LV function normal, RV with mildly elevated rt sided pressures, if her SOB has not improved ask her to increase lasix to 40 mg bid for 2-3 days, with repeat BMP after 1 week I called patient and she said she was in the ED this past weekend for SOB and LE edema. I have uploaded the records into her environmental remediation consultant for your review. She's awaiting surgery clearance for hysterectomy scheduled for next week. [facility] Documentationon 09-09-2023 Documentation [id number] Jackie Mendoza 1975 F Date Provider Department Center 09/09/2023 Jaciel-BRITTNEY BETTS [facility] Family History Problem Relation Age of Onset Coronary artery disease Mother No Known Problems Father Family Status - Relation Status Age at Mother Notes: cancer brast ca, ovarian, skin, heart disease Father [facility] 36on 09-07-2023 36 Per Luz in radiolo gy scheduling, pt requested CT order to be faxed to [facility]. Order faxed to [facility]. [facility] 36on 09-04-2023 36 Spoke with patient. Advised her [...] primary care provider as well as her graphic design manager. Will need instructions from her orthopedic nurse practitioner regarding holding her methotrexate before and after surgery. Encouraged her to take what ever time she would like to decide, though patient reports she would like to proceed as soon as possible. [facility] [address] Dr. Cory arredondo. Dx: Degenerative lumbar stenosis, lumbar spondylolisthesis. Procedure: Removal of L4-S1 hardware, laminectomy L2-L3, posterior instrumented fusion L2-L4. Time: 5 hours. Position: prone on open Johnny. Needs: [employer] rep, O arm, universal removal set, Stealth. Needs PCP clearance and pulm clearance--has new PCP, same office; pulm is Dr. Elizabeth Phan in [place]. Will need to check with her orthopedic nurse practitioner Dr. Estrada here to see if her methotrexate needs to be held before or after surgery. Will need CT lumbar prior to surgery to evaluated bone fusion-- I will order this. Will need bone stimulator after surgery--will order. Thank you. Normal [facility] Telephoneon 09-04-2023 Telephone [id number] Jackie Mendoza 1975 F Date Provider Department Center 09/04/2023 CASANDRA BRIONES [facility] [place] Family History Problem Relation Age of Onset Coronary artery disease Mother No Known Problems Father Family Status - Relation Status Age at Mother Notes: cancer brast ca, ovarian, skin, heart disease Father Normal [facility] Consulton 09-03-2023 Consult [id number] Jackie Mendoza 1975 F Date Provider Department Center 09/03/2023 Titi-CASANDRA HERNANDEZ [facility] [place] Family History Problem Relation Age of Onset Coronary artery disease Mother No Known Problems Father Family Status - Relation Status Age at Mother Notes: cancer brast ca, ovarian, skin, heart disease Father Level of Service:55888 SC OFFICE/OUTPATIENT NEW MODERATE MDM 45 MINUTES Reason for Visit and Comments: Consult [484] - Pt is here for a CO visit for Failed Back Syndrome. Normal [facility] Office Visiton 08-25-2023 Follow-up visit [id number] RejiJackie Omer 1975 F Date Provider Department Center 08/25/2023 120-BRITTNEY BETTS [facility] Family History Problem Relation Age of Onset Coronary artery disease Mother No Known Problems Father Family Status - Relation Status Age at Mother Notes: cancer brast ca, ovarian, skin, heart disease Father Level of Service:46554 SC OFFICE/OUTPATIENT NEW MODERATE MDM 45 MINUTES [facility] Follow-Upon 07-30-2023 Follow-Up [id number] Jackie Mendoza 1975 Date Provider Department Center 07/30/2023 Patricia-MEDINA MONTES [facility] Nila Heal Family History Problem Relation Age of Onset No Known Problems Father Family Status - Relation Status Age at Mother Notes: cancer brast ca, ovarian, skin, heart disease Father Level of Service:15531 SC OFFICE/OUTPATIENT ESTABLISHED MOD MDM 30 MIN (GC) Reason for Visit and Comments: Follow-up [[id number]] [facility] 36on 07-28-2023 36 Letter will be at Check out Desk [facility] 36 Pt contacted, requested to pick letter up on 07/30/23 at her appointment [facility] 36on 07-27-2023 36 Pt is asking if it i s possible for her to have a note for work that excuses her on 07/23/23, 07/24/23 and 07/27/23; because of the great pain she has experienced. Normal [facility] CBC WITH AUTO DIFFERENTIALon 07-27-2023 Basophils (Bld) [#/Vol] 0.07 10*3/uL Normal 0.00-0.20 [facility] Comment on above: Performed By: #### L [id number] ####[facility] (BEAKER)[address] [place] [address] Basophils/100 WBC (Bld) 0.8 % Normal 0.0-1.0 [facility] Comment on above: Performed By: #### L [id number] ####[facility] (BEAKER)[address] [place] [address] Eosinophils (Bld) [#/Vol] 0.10 10*3/uL Normal 0.00-0.50 [facility] Comment on above: Performed By: #### L [id number] ####[facility] [place] [address] Eosinophils/100 WBC (Bld) 1.2 % Normal 0.0-6.0 [facility] Comment on above: Performed By: #### L [id number] ####[facility] [place] [address] Erythrocyte distribution width (RBC) [Ratio] 15.9 % High 11.5-15.0 [facility] Comment on above: Performed By: #### L [id number] ####[facility] (BEAKER)[address] [place] [address] ERYTHROCYTE MEAN CORPUSCULAR HEMOGLOBIN CONCENTRATION (G/DL) BY AUTOMATED 32.8 g/dL Normal 32.0-35.0 [facility] Comment on above: Performed By: #### L [id number] ####[facility] [place] [address] Hematocrit (Bld) [Volume fraction] 41.5 % Normal 36.0-48.0 [facility] Comment on above: Performed By: #### L [id number] ####[facility] (BEAKER)[address] [place] [address] Hemoglobin (Bld) [Mass/Vol] 13.6 g/dL Normal 12.0-15.0 [facility] Comment on above: Performed By: #### L [id number] ####[facility] (BEAKER)[address] [place] [address] Immature granulocytes (Bld) [#/Vol] 0.02 10*3/uL Normal 0.00-0.20 [facility] Comment on above: Performed By: #### L [id number] ####[facility] (BEAKER)[address] [place] [address] Immature granulocytes/100 WBC (Bld) 0.2 % Normal 0.0-1.0 [facility] Comment on above: Performed By: #### L [id number] ####[facility] (BEAKER)[address] [place] [address] Lymphocytes (Bld) [#/Vol] 1.89 10*3/uL Normal 1.20-4.00 [facility] Comment on above: Performed By: #### L [id number] ####[facility] (BEAKER)[address] [place] [address] Lymphocytes/100 WBC (Bld) 22.5 % Normal 20.0-45.0 [facility] Comment on above: Performed By: #### L [id number] ####[facility] (BEAKER)[address] [place] [address] MCH (RBC) [Entitic mass] 28.8 pg Normal 27.0-33.0 [facility] Comment on above: Performed By: #### L [id number] ####[facility] (BEAKER)[address] [place] [address] MCV (RBC) [Entitic vol] 87.7 fL Normal 82.0-98.0 [facility] Comment on above: Performed By: #### L [id number] ####[facility] (BEAKER)[address] [place] [address] Monocytes (Bld) [#/Vol] 0.61 10*3/uL Normal 0.10-1.00 [facility] Comment on above: Performed By: #### L [id number] ####[facility] (BEAKER)[address] [place] [address] Monocytes/100 WBC (Bld) 7.3 % Normal 5.0-12.0 [facility] Comment on above: Performed By: #### L [id number] ####[facility] (BEAKER)[address] [place] [address] Neutrophils (Bld) [#/Vol] 5.71 10*3/uL Normal 1.60-7.60 [facility] Comment on above: Performed By: #### L [id number] ####[facility] (BEAKER)[address] [place] [address] Neutrophils/100 WBC (Bld) 68.0 % Normal 40.0-72.0 [facility] Comment on above: Performed By: #### L [id number] ####[facility] [place] [address] NRBC (PER 100 WBCS) BY AUTOMATED COUNT 0.0 % Normal 0 [facility] Comment on above: Performed By: #### L [id number] ####[facility] (BEAKER)[address] [place] [address] PLATELETS (10*3/UL) IN BLOOD AUTOMATED COUNT 240 10*3/uL Normal 150-400 [facility] Comment on above: Performed By: #### L [id number] ####[facility] (BEAKER)[address] [place] [address] RBC (Bld) [#/Vol] 4.73 10*6/uL Normal 3.80-5.00 [facility] Comment on above: Performed By: #### L [id number] ####[facility] (BEAKER)[address] [place] [address] WBC (Bld) [#/Vol] 8.40 10*3/uL Normal 4.00-10.60 [facility] Comment on above: Performed By: #### L [id number] ####[facility] (BEAKER)[address] [place] [address] COMPREHENSIVE METABOLIC PANE Jamar 07-27-2023 Albumin [Mass/Vol] 4.3 g/dL Normal 3.5-5.7 [facility] Comment on above: Performed By: #### L [id number] ####[facility] (BEAKER)[address] [place] [address] ALP [Catalytic activity/Vol] 80 U/L Normal 34-104 [facility] Comment on above: Performed By: #### L [id number] ####[facility] [place] [address] ALT [Catalytic activity/Vol] 13 U/L Normal 7-52 [facility] Comment on above: Performed By: #### L [id number] ####[facility] [place] [address] Anion gap [Moles/Vol] 11 mmol/L Normal 7-20 [facility] Comment on above: Performed By: #### L [id number] ####[facility] [place] [address] AST [Catalytic activity/Vol] 14 U/L Normal 13-39 [facility] Comment on above: Performed By: #### L [id number] ####[facility] [place] [address] Bilirubin [Mass/Vol] 0.4 mg/dL Normal 0.3-1.0 [facility] Comment on above: Performed By: #### L [id number] ####[facility] (BEAKER)[address] [place] [address] Calcium [Mass/Vol] 9.0 mg/dL Normal 8.6-10.3 [facility] Comment on above: Performed By: #### L [id number] ####[facility] (BEAKER)[address] [place] [address] Chloride [Moles/Vol] 105 mmol/L Normal 98-107 [facility] Comment on above: Performed By: #### L [id number] ####[facility] (BEAKER)[address] [place] [address] CO2 [Moles/Vol] 26 mmol/L Normal 21-31 [facility] Comment on above: Performed By: #### L [id number] ####[facility] [place] [address] Creatinine [Mass/Vol] 0.79 mg/dL Normal 0.60-1.20 [facility] Comment on above: Performed By: #### L [id number] ####[facility] ([facility] [place] [address] GLOMERULAR FILTRATION RATE ML/MIN/1.73 SQ M.PREDICTED 91.1 mL/min/1.73m*2 Normal >60.0 [facility] Comment on above: Result Comment: [facility]???s estimated glomerular filtration rate (eGFR) will no [...] of individuals. Performed By: #### L [id number] ####[facility] ([facility] [place] [address] Glucose [Mass/Vol] 96 mg/dL Normal 70-100 [facility] Comment on above: Performed By: #### L [id number] ####[facility] ([facility] [place] [address] Potassium [Moles/Vol] 3.9 mmol/L Normal 3.5-5.1 [facility] Comment on above: Performed By: #### L [id number] ####[facility] ([facility] [place] [address] Protein [Mass/Vol] 6.9 g/dL Normal 6.0-8.3 [facility] Comment on above: Performed By: #### L [id number] ####[facility] (BEAKER)[address] [place] [address] Sodium [Moles/Vol] 138 mmol/L Normal 136-145 [facility] Comment on above: Performed By: #### L [id number] ####[facility] (BEAKER)[address] [place] [address] Urea nitrogen [Mass/Vol] 14 mg/dL Normal 7-25 [facility] Comment on above: Performed By: #### L [id number] ####[facility] (BEAKER)[address] [place] [address] UREA NITROGEN/CREATININE (MASS RATIO) IN SER/PLAS 17.7 Normal [facility] Comment on above: Performed By: #### L [id number] ####[facility] (BEAKER)[address] [place] [address] Follow-Upon 07-27-2023 Follow-Up [id number] Jackie Mendoza 1975 F Date Provider Department Center 07/27/2023 MEDINA HENRY [facility] RHEUM Nila Heal Family History Problem Relation Age of Onset No Known Problems Father Family Status - Relation Status Age at Mother Notes: cancer brast ca, ovarian, skin, heart disease Father Level of Service:96447 SC OFFICE/OUTPATIENT ESTABLISHED MOD MDM 30 MIN () Reason for Visit and Comments: Follow-up [671544] Normal [facility] Orders Onlyon 07-27-2023 Orders Only [id number] Jackie Mendoza 1975 F Date Provider Department Center 07/27/2023 JOEY OLIVIER [facility] RHEUM Nila Heal Family History Problem Relation Age of Onset No Known Problems Father Family Status - Relation Status Age at Mother Notes: cancer brast ca, ovarian, skin, heart disease Father Normal [facility] DRUG SCREEN, UR-RFLEX CONFIR 07-14-2023 ALCOHOL, UR. Negative Normal (< 10 - Cutof) [facility] Comment on above: Order Comment: FACIL ITY: [facility] [id number] Performed By: #### Ari S-M+ #### [facility] [address] [place], [address] AMPHETAMINES, UR. Negative Normal (< 500 - Cutof) [facility] Comment on above: Order Comment: FACIL ITY: [facility] [id number] Performed By: #### Ari S-M+ #### [facility] [address] [place], [address] BARBITURATES, UR. Negative Normal (< 300 - Cutof) [facility] Comment on above: Order Comment: FACIL ITY: [facility] [id number] Performed By: #### Ari S-M+ #### [facility] [address] [place], [address] BENZODIAZEPINES, UR. Negative Normal (< 100 - Cutof) [facility] Comment on above: Order Comment: FACIL ITY: [facility] [id number] Performed By: #### Ari S-M+ #### [facility] [address] [place], [address] COCAINE METAB. UR. Negative Normal (< 150 - Cutof) [place] [facility] Comment on above: Order Comment: FACIL ITY: [facility] [id number] Performed By: #### Ari S-M+ #### [facility] [address] [place], [address] CREAT, URINE 35.91 MG/DL Normal (20.00 - 320.0) [place] [facility] Comment on above: Order Comment: FACIL ITY: [facility] [id number] Performed By: #### D S-M+ #### [facility] [address] [place], [address] FENTANYL, UR SCREEN Positive High (< 1.0 - Cutof) [facility] [facility] Comment on above: Order Comment: FACIL ITY: [facility] [id number] Result Comment: FENT ANYL URINE SCREEN = POSITIVE Specimen sent for confirmation testing forfentanyl - [facility] test # [id number] Performed By: #### Ari S-M+ #### [facility] [address] [place], [address] HEROIN METAB. UR. Negative Normal (< 10 - Cutof) [facility] Comment on above: Order Comment: FACIL ITY: [facility] [id number] Performed By: #### Ari S-M+ #### [facility] [address] [place], [address] METHADONE METAB. UR. Negative Normal (< 100 - Cutof) [facility] Comment on above: Order Comment: FACIL ITY: [facility] [id number] Performed By: #### Ari S-M+ #### [facility] [address] [place], [address] OPIATES, UR. Negative Normal (< 100 - Cutof) [facility] Comment on above: Order Comment: FACIL ITY: [facility] [id number] Performed By: #### Ari S-M+ #### [facility] [address] [place], [address] OXYCODONE, UR. Negative Normal (< 100 - Cutof) [facility] Comment on above: Order Comment: [facility]IL [facility] [id number] Performed By: #### Ari S-M+ #### [facility] [address] [place], [address] pH (U) 5.0 [pH] Normal (5.0 - 9.0) [facility] Comment on above: Order Comment: [facility]IL ITY[facility] [id number] Performed By: #### Ari S-M+ #### [place] [facility] [address] [place], [address] PHENCYCLIDINE, UR. Negative Normal (< 25 - Cutof) [facility] Comment on above: Order Comment: FACIL ITY: [facility] [id number] Performed By: #### D S-M+ #### [facility] [address] [facility], [address] THC METABOLITE, UR. Positive High (< 20 - Cutof) [facility] Comment on above: Order Comment: FACIL ITY: [facility] [id number] Result Comment: THC METABOLITE URINE SCREEN = POSITIVE Specimen sent for confirmation testing for [facility] - [facility] test # [id number] Performed By: #### D S-M+ #### [facility] [address] [facility], [address] TRAMADOL, UR SCREEN Negative Normal (< 200 - Cutof) [facility] Comment on above: Order Comment: FACIL ITY: [facility] [id number] Result Comment: This drug testing is for medical treatment only. Analysis was performed as non-forensic testing and the results should be used only by healthcare providers to render diagnosis or treatment, or to monitor the progress of medical conditions. Performed By: #### D S-M+ #### [facility] [address] [facility], [address] Follow-Upon 04-27-2023 Follow-Up [id number] Jackie Mendoza 1975 F Date Provider Department Center 04/27/2023 [facility] RHEUM Nila Heal Family History Problem Relation Age of Onset No Known Problems Father Family Status - Relation Status Age at Mother Notes: cancer brast ca, ovarian, skin, heart disease Father Level of Service:43474 SC OFFICE/OUTPATIENT ESTABLISHED MOD MDM 30-39 MIN () Reason for Visit and Comments: Follow-up [575670] Normal [facility] DRUG SCREEN, UR-RFLEX CONFIR 04-09-2023 ALCOHOL, UR. Negative Normal (< 10 - Cutof) [facility] Comment on above: Order Comment: FACIL ITY: [facility] [id number] Performed By: #### D S-M+ #### [facility] [address] [place], [address] AMPHETAMINES, UR. Negative Normal (< 500 - Cutof) [facility] Comment on above: Order Comment: FACIL ITY: [facility] [id number] Performed By: #### Ari S-M+ #### [facility] [address] [place], [address] BARBITURATES, UR. Negative Normal (< 300 - Cutof) [facility] Comment on above: Order Comment: FACIL ITY: [facility] [id number] Performed By: #### Ari S-M+ #### [facility] [address] [place], [address] BENZODIAZEPINES, UR. Negative Normal (< 100 - Cutof) [facility] Comment on above: Order Comment: FACIL ITY: [facility] [id number] Performed By: #### Ari S-M+ #### [facility] [facility] [address] [place], [address] COCAINE METAB. UR. Negative Normal (< 150 - Cutof) [facility] Comment on above: Order Comment: FACIL ITY: [facility] [id number] Performed By: #### Ari S-M+ #### [facility] [address] [place], [address] CREAT, URINE 27.04 MG/DL Normal (20.00 - 320.0) [facility] Comment on above: Order Comment: FACIL ITY: [facility] [id number] Performed By: #### Ari S-M+ #### [facility] [address] [place], [address] FENTANYL, UR SCREEN Negative Normal (< 1.0 - Cutof) [facility] Comment on above: Order Comment: FACIL ITY: [facility] [id number] Performed By: #### D S-M+ #### [facility] [facility] [address] [place], [address] HEROIN METAB. UR. Negative Normal (< 10 - Cutof) [facility] Comment on above: Order Comment: FACIL ITY: [facility] [id number] Performed By: #### D S-M+ #### [facility] [facility] [address] [place], [address] METHADONE METAB. UR. Negative Normal (< 100 - Cutof) [facility] Comment on above: Order Comment: FACIL ITY: [facility] [id number] Performed By: #### D S-M+ #### [facility] [address] [place], [address] OPIATES, UR. Negative Normal (< 100 - Cutof) [facility] Comment on above: Order Comment: FACIL ITY: [facility] [id number] Performed By: #### D S-M+ #### [facility] [facility] [address] [place], [address] OXYCODONE, UR. Negative Normal (< 100 - Cutof) [facility] Comment on above: Order Comment: FACIL ITY: [facility] [id number] Performed By: #### D S-M+ #### [facility] [facility] [address] [place], [address] pH (U) 7.0 [pH] Normal (5.0 - 9.0) [facility] Comment on above: Order Comment: FACIL ITY: [facility] [id number] Performed By: #### D S-M+ #### [facility] [address] [place], [address] PHENCYCLIDINE, UR. Negative Normal (< 25 - Cutof) [facility] Comment on above: Order Comment: FACIL ITY: [facility] [id number] Performed By: #### D S-M+ #### [facility] [address] [place], [address] THC METABOLITE, UR. Positive High (< 20 - Cutof) [facility] Comment on above: Order Comment: FACIL ITY: [facility] [id number] Result Comment: THC METABOLITE URINE SCREEN = POSITIVE Specimen sent for confirmation testing for [facility] - [facility] test # [id number] Performed By: #### D S-M+ #### [facility] [facility] [address] [place], [address] TRAMADOL, UR SCREEN Negative Normal (< 200 - Cutof) [facility] Comment on above: Order Comment: FACIL ITY: [facility] [id number] Result Comment: This drug testing is for medical treatment only. Analysis was performed as non-forensic testing and the results should be used only by healthcare providers to render diagnosis or treatment, or to monitor the progress of medical conditions. Performed By: #### D S-M+ #### [facility] [address] [place], [address] CBCon 03-05-2023 Erythrocyte distribution width (RBC) [Ratio] 15.0 % High 11.8-14.4 [facility] Comment on above: Performed By: #### C BC #### [facility] [address] [place] [address] Lift Mechanic: Harjit Flores MD Hematocrit (Bld) [Volume fraction] 39.9 % Normal 36.3-47.1 [facility] Comment on above: Performed By: #### C BC #### [facility] [address] [place] [address] Lift Mechanic: Harjit Flores MD Hemoglobin (Bld) [Mass/Vol] 13.2 g/dL Normal 11.9-15.1 [facility] Comment on above: Performed By: #### C BC #### [facility] [address] [facility] [place] [address] Lift Mechanic: Harjit Flores MD MCH (RBC) [Entitic mass] 29.9 pg Normal 25.2-33.5 [facility] Comment on above: Performed By: #### C BC #### [facility] [place] [address] Lift Mechanic: Harjit Flores MD MCHC (RBC) [Mass/Vol] 33.1 g/dL Normal 28.4-34.8 [facility] Comment on above: Performed By: #### C BC #### [facility] [address] [place] [address] Lift Mechanic: Harjit Flores MD MCV (RBC) [Entitic vol] 90.3 fL Normal 82.6-102.9 [facility] Comment on above: Performed By: #### C BC #### [facility] [address] [place] [address] Lift Mechanic: Harjit Flores MD NRBC Automated 0.0 per 100 WBC Normal 0.0 [facility] Comment on above: Performed By: #### C BC #### [facility] [address] [place] [address]. [place] [address] Lift Mechanic: Harjit Flores MD Platelet mean volume (Bld) [Entitic vol] 10.4 fL Normal 8.1-13.5 [facility] Comment on above: Performed By: #### C BC #### [facility] [address] [place] [address]. [place] [address] Lift Mechanic: Harjit Flores MD Platelets (Bld) [#/Vol] 209 10*3/uL Normal 138-453 [facility] Comment on above: Performed By: #### C BC #### [facility] [address] [facility] [place] [address] Lift Mechanic: Harjit Flores MD RBC (Bld) [#/Vol] 4.42 10*6/uL Normal 3.95-5.11 [facility] Comment on above: Performed By: #### C BC #### [facility] [address] [facility] [place] [address] Lift Mechanic: Harjit Flores MD WBC (Bld) [#/Vol] 7.1 10*3/uL Normal 3.5-11.3 [facility] Comment on above: Performed By: #### C BC #### [facility] [address] [facility] [place] [address] Lift Mechanic: Harjit Flores MD Erythrocyte distribution width (RBC) [Ratio] 15.0 % High 11.8 - 14.4 % [facility] Hematocrit (Bld) [Volume fraction] 39.9 % 36.3 - 47.1 % [facility] Hemoglobin (Bld) [Mass/Vol] 13.2 g/dL 11.9 - 15.1 g/dL [facility] Interpretation and review of laboratory results Abnormal [facility] MCH (RBC) [Entitic mass] 29.9 pg 25.2 - 33.5 pg [facility] MCHC (RBC) [Mass/Vol] 33.1 g/dL 28.4 - 34.8 g/dL [facility] MCV (RBC) [Entitic vol] 90.3 fL 82.6 - 102.9 fL [facility] Nucleated RBC/100 WBC (Bld) [Ratio] 0.0 % 0.0 per 100 WBC [facility] Platelet mean volume (Bld) [Entitic vol] 10.4 fL 8.1 - 13.5 fL [facility] Platelets (Bld) [#/Vol] 209 10*3/uL [facility] RBC (Bld) [#/Vol] 4.42 10*6/uL 3.95 - 5.1 1 m/uL [facility] WBC other (Bld) [#/Vol] 7.1 [facility] POCT urine pregnancyon 03-05 Beta HCG ( test) Ql (U) Negative NEGATIVE [facility] Comment on above: Specimens with hCG l evels near the threshold of the test (25 mIU/mL) may give a negative or indeterminate result. In such cases, another test should be performed with a new specimen in 48-72 hours. If early is suspected clinically in this setting, correlation with quantitative serum b-hCG level is suggested. [facility] Basic Metabolic Profon 02-19 Anion gap [Moles/Vol] 10 mmol/L Normal - [facility] Comment on above: Performed By: #### G LYHGB #### [address] [address] Lift Mechanic: Saw Elizondo MD #### BMP #### [facility] [address] [place] [address] Lift Mechanic: Harjit Flores MD BUN/CRE Ratio 14 Normal 9- [facility] Comment on above: Performed By: #### G LYHGB #### [address] [address] Lift Mechanic: Saw Elizondo MD #### BMP #### [facility] [address] [place] [address] Lift Mechanic: Harjit Flores MD Calcium [Mass/Vol] 9.3 mg/dL Normal 8.6-10.4 [facility] Comment on above: Performed By: #### G LYHGB #### [address] [address] Lift Mechanic: Saw Elizondo MD #### BMP #### [facility] [address] [place] [address] Lift Mechanic: Harjit Flores MD Chloride [Moles/Vol] 103 mmol/L Normal 98-107 [facility] Comment on above: Performed By: #### G LYHGB #### [address] [address] Lift Mechanic: Saw Elizondo MD #### BMP #### [facility] [address] [place] [address] Lift Mechanic: Harjit Flores MD CO2 [Moles/Vol] 24 mmol/L Normal 20-31 [facility] Comment on above: Performed By: #### G LYHGB #### [address] [address] Lift Mechanic: Saw Elizondo MD #### BMP #### [facility] [address] [place] [address] Lift Mechanic: Harjit Flores MD Creatinine [Mass/Vol] 0.8 mg/dL Normal 0.5-0.9 [facility] Comment on above: Performed By: #### G LYHGB #### [address] [address] Lift Mechanic: Saw Elizondo MD #### BMP #### [facility] [address] [place] [address] Lift Mechanic: Harjit Flores MD GFR/1.73 sq M.predicted among non-blacks MDRD (S/P/Bld) [Vol rate/Area] mL/min/{1.73_m2} Normal >60 [facility] Comment on above: Result Comment: These [...] secretion. Performed By: #### G LYHGB #### [address] [address] Lift Mechanic: Saw Elizondo MD #### BMP #### [facility] [address] [place] [address] Lift Mechanic: Harjit Flores MD Glucose [Mass/Vol] 126 mg/dL High 70-99 [facility] Comment on above: Performed By: #### G LYHGB #### [address] [address] Lift Mechanic: Saw Elizondo MD #### BMP #### [facility] [address] [place] [address] Lift Mechanic: Harjit Flores MD Potassium [Moles/Vol] 4.0 mmol/L Normal 3.7-5.3 [facility] Comment on above: Performed By: #### G LYHGB #### [address] [address] Lift Mechanic: Saw Elizondo MD #### BMP #### [facility] [address] [place] [address] Lift Mechanic: Harjit Flores MD Sodium [Moles/Vol] 137 mmol/L Normal 135-144 [facility] Comment on above: Performed By: #### G LYHGB #### [address] [address] Lift Mechanic: Saw Elizondo MD #### BMP #### [facility] [address] [place] [address] Lift Mechanic: Harjit Flores MD Urea nitrogen [Mass/Vol] 11 mg/dL Normal 6-20 [facility] Comment on above: Performed By: #### G LYHGB #### [facility] [address] [place] [address] Lift Mechanic: Saw Elizondo MD #### BMP #### [facility] [address] [place] [address] Lift Mechanic: Harjit Flores MD CBCon 02-19-2023 Erythrocyte distribution width (RBC) [Ratio] 15.0 % High 11.8-14.4 [facility] Comment on above: Performed By: #### C BC #### [facility] [address] [place] [address] Lift Mechanic: Harjit Flores MD Hematocrit (Bld) [Volume fraction] 40.2 % Normal 36.3-47.1 [facility] Comment on above: Performed By: #### C BC #### [facility] [address] [place] [address] Lift Mechanic: Harjit Flores MD Hemoglobin (Bld) [Mass/Vol] 13.3 g/dL Normal 11.9-15.1 [facility] Comment on above: Performed By: #### C BC #### [facility] [address] [place] [address] Lift Mechanic: Harjit Flores MD MCH (RBC) [Entitic mass] 29.6 pg Normal 25.2-33.5 [facility] Comment on above: Performed By: #### C BC #### [facility] [place] [address] Lift Mechanic: Harjit Flores MD MCHC (RBC) [Mass/Vol] 33.1 g/dL Normal 28.4-34.8 [facility] Comment on above: Performed By: #### C BC #### [facility] [address] [facility] [place] [address] Lift Mechanic: Harjit Flores MD MCV (RBC) [Entitic vol] 89.3 fL Normal 82.6-102.9 [facility] Comment on above: Performed By: #### C BC #### [facility] [place] [address] Lift Mechanic: Harjit Flores MD NRBC Automated 0.0 per 100 WBC Normal 0.0 [facility] Comment on above: Performed By: #### C BC #### [facility] [place] [address] Lift Mechanic: Harjit Flores MD Platelet mean volume (Bld) [Entitic vol] 9.9 fL Normal 8.1-13.5 [facility] Comment on above: Performed By: #### C BC #### [facility] [place] [address] Lift Mechanic: Harjit Flores MD Platelets (Bld) [#/Vol] 237 10*3/uL Normal 138-453 [facility] Comment on above: Performed By: #### C BC #### [facility] [place] [address] Lift Mechanic: Harjit Flores MD RBC (Bld) [#/Vol] 4.50 10*6/uL Normal 3.95-5.11 [facility] Comment on above: Performed By: #### C BC #### [facility] [place] [address] Lift Mechanic: Harjit Flores MD WBC (Bld) [#/Vol] 9.6 10*3/uL Normal 3.5-11.3 [facility] Comment on above: Performed By: #### C BC #### [facility] [address] [place] [address] Lift Mechanic: Harjit Flores MD Hemoglobin A1Con 02-19-2023 Glucose [Mass/Vol] 123 mg/dL Normal [facility] Comment on above: Result Comment: The ADA and AACC recommend providing the estimated average glucose result to permit better patient understanding of their HBA1c result. Performed By: #### G LYHGB #### [facility] [address] [place] [address] Lift Mechanic: Saw Elizondo MD #### BMP #### [facility] [address] [place] [address] Lift Mechanic: Harjit Flores MD HbA1c (Bld) [Mass fraction] 5.9 % Normal 4.0-6.0 [facility] Comment on above: Performed By: #### G LYHGB #### [facility] [address] [place] [address] Lift Mechanic: Saw Elizondo MD #### BMP #### [facility] [address] [place] [address] Lift Mechanic: Harjit Flores MD Follow-Upon 01-12-2023 Follow-Up [id number] Jackie Mendoza 1975 F Date Provider Department Center 01/12/2023 [facility] RHEUM Nila Heal Family History Problem Relation Age of Onset No Known Problems Father Family Status - Relation Status Age at Mother Notes: cancer brast ca, ovarian, skin, heart disease Father Level of Service:94948 SC OFFICE/OUTPATIENT ESTABLISHED MOD MDM 30-39 MIN Reason for Visit and Comments: Follow-up [496141] Normal [facility] DRUG SCREEN, UR-RFLEX CONFIR 01-06-2023 ALCOHOL, UR. Negative Normal (< 10 - Cutof) [facility] Comment on above: Order Comment: FACIL ITY: [facility] [id number] Performed By: #### D S-M+ #### [facility] [facility] [address] [place], [address] AMPHETAMINES, UR. Negative Normal (< 500 - Cutof) [facility] above: Order Comment: FACIL ITY: [facility] [id number] Performed By: #### D S-M+ #### [place] [facility] [address] [place], [address] BARBITURATES, UR. Negative Normal (< 300 - Cutof) [facility] Comment on above: Order Comment: FACIL ITY: [facility] [id number] Performed By: #### D S-M+ #### [place] [facility] [address] [place], [address] BENZODIAZEPINES, UR. Positive High (< 100 - Cutof) [facility] Comment on above: Order Comment: [facility]IL ITY[facility] [id number] Result Comment: AAKASH ODIAZEPINES URINE SCREEN = POSITIVE Specimen sent for confirmation testing for benzodiazepines - [facility] test # [id number] Performed By: #### D S-M+ #### [facility] [address] [facility], [address] COCAINE METAB. UR. Negative Normal (< 150 - Cutof) [facility] Comment on above: Order Comment: FACIL ITY: [facility] [id number] Performed By: #### D S-M+ #### [facility] [facility] [address] [place], [address] CREAT, URINE 64.85 MG/DL Normal (20.00 - 320.0) [facility] above: Order Comment: FACIL ITY: [facility] [id number] Performed By: #### D S-M+ #### [facility] [facility] [address] [place], [address] FENTANYL, UR SCREEN Negative Normal (< 1.0 - Cutof) [facility] Comment on above: Order Comment: FACIL ITY: [facility] [id number] Performed By: #### Ari S-M+ #### [facility] [facility] [address] [place], [address] HEROIN METAB. UR. Negative Normal (< 10 - Cutof) [facility] Comment on above: Order Comment: FACIL ITY: [facility] [id number] Performed By: #### Ari S-M+ #### [facility] [address] [facility], [address] METHADONE METAB. UR. Negative Normal (< 100 - Cutof) [facility] Comment on above: Order Comment: FACIL ITY: [facility] [id number] Performed By: #### Ari S-M+ #### [place] [facility] [address] [place], [address] OPIATES, UR. Negative Normal (< 100 - Cutof) [facility] Comment on above: Order Comment: FACIL ITY: [facility] [id number] Performed By: #### Ari S-M+ #### [facility] [address] [facility], [address] OXYCODONE, UR. Negative Normal (< 100 - Cutof) [facility] Comment on above: Order Comment: FACIL ITY: [facility] [id number] Performed By: #### Ari S-M+ #### [facility] [facility] [address] [place], [address] pH (U) 5.5 [pH] Normal (5.0 - 9.0) [facility] Comment on above: Order Comment: FACIL ITY: [facility] [id number] Performed By: #### Ari S-M+ #### [place] [facility] [address] [place], [address] PHENCYCLIDINE, UR. Negative Normal (< 25 - Cutof) [facility] Comment on above: Order Comment: FACIL ITY: [facility] [id number] Performed By: #### D S-M+ #### [place] [facility] [address] [place], [address] THC METABOLITE, UR. Positive High (< 20 - Cutof) [facility] Comment on above: Order Comment: FACIL ITY: [facility] [id number] Result Comment: THC METABOLITE URINE SCREEN = POSITIVE Specimen sent for confirmation testing for THC - [facility] test # [id number] Performed By: #### D S-M+ #### [facility] [address] [place], [address] TRAMADOL, UR SCREEN Negative Normal (< 200 - Cutof) [facility] Comment on above: Order Comment: FACIL ITY: [facility] [id number] Result Comment: This drug testing is for medical treatment only. Analysis was performed as non-forensic testing and the results should be used only by healthcare providers to render diagnosis or treatment, or to monitor the progress of medical conditions. Performed By: #### D S-M+ #### [facility] [address] [place], [address] GLYCOHEMOGLOBIN A1Con 2022 ADA RECOMMENDATION SEE BELOW Normal [facility] Comment on above: Result Comment: ADA RECOMMENDED LIMIT 4.0 - 6.0 ADA THERAPEUTIC TARGET < 7.0 ACTION SUGGESTED > 7.0 Performed By: #### D ATA1C #### [facility] [address] [place], [place] [address] Dr. Brock Elias Glucose [Mass/Vol] 128 mg/dL Normal [facility] Comment on above: Performed By: #### D ATA1C #### [facility] [address] [place], [place] [address] Dr. Brock Elias HbA1c (Bld) [Mass fraction] 6.1 % Normal 4.5-6.2 [facility] Comment on above: Performed By: #### D ATA1C #### [facility] [address] [place], [place] [address] Dr. Brock Elias C-REACTIVE PROTEINon 023 C REACTIVE PROTEIN (MG/L) IN SER/PLAS 7.5 mg/L High 0.0-7.0 [facility] Comment on above: Performed By: #### L [id number] #### [facility] (BEAKER) [address] [place] [place] [address] CBC WITH AUTO DIFFERENTIALon 10-27-2022 Basophils (Bld) [#/Vol] 0.05 10*3/uL Normal 0.00-0.20 [facility] Comment on above: Performed By: #### L [id number] ####[facility] (BEAK[facility])[address] [facility] [address] Basophils/100 WBC (Bld) 0.6 % Normal 0.0-1.0 [facility] Comment on above: Performed By: #### L [id number] ####[facility] (BEAKER)[address] [facility] [place] [address] Eosinophils (Bld) [#/Vol] 0.14 10*3/uL Normal 0.00-0.50 [facility] Comment on above: Performed By: #### L [id number] ####[facility] (BEAKER)[address] [facility] [address] Eosinophils/100 WBC (Bld) 1.7 % Normal 0.0-6.0 [facility] Comment on above: Performed By: #### L [id number] ####[facility] (BEAKER)[address] [place] [address] Erythrocyte distribution width (RBC) [Ratio] 15.1 % High 11.5-15.0 [facility] Comment on above: Performed By: #### L [id number] ####[facility] (BEAKER)[address] [place] [address] ERYTHROCYTE MEAN CORPUSCULAR HEMOGLOBIN CONCENTRATION (G/DL) BY AUTOMATED 33.3 g/dL Normal 32.0-35.0 [facility] Comment on above: Performed By: #### L [id number] ####[facility] [place] [address] Hematocrit (Bld) [Volume fraction] 42.7 % Normal 36.0-48.0 [facility] Comment on above: Performed By: #### L [id number] ####[facility] [place] [address] Hemoglobin (Bld) [Mass/Vol] 14.2 g/dL Normal 12.0-15.0 [facility] Comment on above: Performed By: #### L [id number] ####[facility] ([facility])[address] [place] [address] Immature granulocytes (Bld) [#/Vol] 0.02 10*3/uL Normal 0.00-0.20 [facility] Comment on above: Performed By: #### L [id number] ####[facility] ([facility] [place] [address] Immature granulocytes/100 WBC (Bld) 0.2 % Normal 0.0-1.0 [facility] Comment on above: Performed By: #### L [id number] ####[facility] ([facility])[address] [place] [address] Lymphocytes (Bld) [#/Vol] 2.07 10*3/uL Normal 1.20-4.00 [facility] Comment on above: Performed By: #### L [id number] ####[facility] ([facility])[address] [place] [address] Lymphocytes/100 WBC (Bld) 24.7 % Normal 20.0-45.0 [facility] Comment on above: Performed By: #### L [id number] ####[facility] ([facility])[address] [place] [address] MCH (RBC) [Entitic mass] 29.1 pg Normal 27.0-33.0 [facility] Comment on above: Performed By: #### L [id number] ####[facility] ([facility])[address] [place] [address] MCV (RBC) [Entitic vol] 87.5 fL Normal 82.0-98.0 [facility] Comment on above: Performed By: #### L [id number] ####[facility] ([facility])[address] [place] [address] Monocytes (Bld) [#/Vol] 0.52 10*3/uL Normal 0.10-1.00 [facility] Comment on above: Performed By: #### L [id number] ####[facility] ([facility])[address] [place] [address] Monocytes/100 WBC (Bld) 6.2 % Normal 5.0-12.0 [facility] Comment on above: Performed By: #### L [id number] ####[facility] ([facility])[address] [place] [address] Neutrophils (Bld) [#/Vol] 5.58 10*3/uL Normal 1.60-7.60 [facility] Comment on above: Performed By: #### L [id number] ####[facility] ([facility])[address] [place] [address] Neutrophils/100 WBC (Bld) 66.6 % Normal 40.0-72.0 [facility] Comment on above: Performed By: #### L [id number] ####[facility] ([facility] [place] [address] NRBC (PER 100 WBCS) BY AUTOMATED COUNT 0.0 % Normal 0 [facility] Comment on above: Performed By: #### L [id number] ####[facility] ([facility] [place] [address] PLATELETS (10*3/UL) IN BLOOD AUTOMATED COUNT 246 10*3/uL Normal 150-400 [facility] Comment on above: Performed By: #### L [id number] ####[facility] ([facility] [place] [address] RBC (Bld) [#/Vol] 4.88 10*6/uL Normal 3.80-5.00 [facility] Comment on above: Performed By: #### L [id number] ####[facility] ([facility])[address] [place] [address] WBC (Bld) [#/Vol] 8.38 10*3/uL Normal 4.00-10.60 [facility] Comment on above: Performed By: #### L [id number] ####[facility] ([facility])[address] [address] Follow-Upon 10-27-2022 Follow-Up [id number] Jackie Mendoza 1975 F Date Provider Department [place] 10/27/2022 [facility] R[facility]UM Nila Heal Family History Problem Relation Age of Onset No Known Problems Father Family Status - Relation Status Age at Mother Notes: cancer brast ca, ovarian, skin, heart disease Father Level of Service:67490 [place] OFFICE/OUTPATIENT ESTABLISHED MOD MDM 30-39 MIN () Reason for Visit and Comments: Follow-up [315011] Normal [facility] HEPATIC FUNCTION PANELon Albumin [Mass/Vol] 4.3 g/dL Normal 3.5-5.7 [facility] Comment on above: Performed By: #### L [id number] ####[facility] ([facility])[address] [place] [address] ALP [Catalytic activity/Vol] 78 U/L Normal 34-104 [facility] Comment on above: Performed By: #### L [id number] ####[facility] ([facility])[address] [place] [address] ALT [Catalytic activity/Vol] 15 U/L Normal 7-52 [facility] Comment on above: Performed By: #### L [id number] ####[facility] ([facility])[address] [place] [address] AST [Catalytic activity/Vol] 14 U/L Normal 13-39 [facility] Comment on above: Performed By: #### L [id number] ####[facility] ([facility])[address] [place] [address] Bilirubin [Mass/Vol] 0.5 mg/dL Normal 0.3-1.0 [facility] Comment on above: Performed By: #### L [id number] ####[facility] ([facility])[address] [place] [address] Magnesium [Mass/Vol] 0.1 mg/dL Normal 0-0.2 [facility] Comment on above: Performed By: #### L [id number] ####[facility] ([facility])[address] [place] [address] Protein [Mass/Vol] 7.3 g/dL Normal 6.0-8.3 [facility] Comment on above: Performed By: #### L [id number] ####[facility] ([facility])[address] [place] [address] SEDIMENTATION RATEon 023 SEDIMENTATION RATE, ERYTHROCYTE 5 mm/hr Normal <=20 [facility] Comment on above: Performed By: #### L [id number] #### [facility] ([facility]) [address] [place] [address] DRUG SCREEN, UR-RFLEX CONFIR 10-06-2022 ALCOHOL, UR. Negative Normal (< 10 - Cutof) [facility] Comment on above: Order Comment: FACIL ITY: [facility] [id number] Performed By: #### D S-M+ #### [facility] [address] [place], [address] AMPHETAMINES, UR. Negative Normal (< 500 - Cutof) [facility] Comment on above: Order Comment: FACIL ITY: [facility] [id number] Performed By: #### D S-M+ #### [facility] [address] [place], [address] BARBITURATES, UR. Negative Normal (< 300 - Cutof) [facility] Comment on above: Order Comment: FACIL ITY: [facility] [id number] Performed By: #### Ari S-M+ #### [facility] [address] [place], [address] BENZODIAZEPINES, UR. Negative Normal (< 100 - Cutof) [facility] Comment on above: Order Comment: FACIL ITY: [facility] [id number] Performed By: #### D S-M+ #### [facility] [facility] [address] [place], [address] COCAINE METAB. UR. Negative Normal (< 150 - Cutof) [facility] on [facility]: Order Comment: FACIL ITY: [facility] [id number] Performed By: #### Ari S-M+ #### [facility] [address] [place], [address] CREAT, URINE 67.78 MG/DL Normal (20.00 - 320.0) [facility] Comment on above: Order Comment: FACIL ITY: [facility] [id number] Performed By: #### Ari S-M+ #### [facility] [address] [place], [address] FENTANYL, UR SCREEN Negative Normal (< 1.0 - Cutof) [facility] Comment on above: Order Comment: FACIL ITY: [facility] [id number] Performed By: #### D S-M+ #### [facility] [address] [place], [address] HEROIN METAB. UR. Negative Normal (< 10 - Cutof) [facility] Comment on above: Order Comment: FACIL ITY: [facility] [id number] Performed By: #### D S-M+ #### [facility] [address] [place], [address] METHADONE METAB. UR. Negative Normal (< 100 - Cutof) [facility] Comment on above: Order Comment: FACIL ITY: [facility] [id number] Performed By: #### Ari S-M+ #### [facility] [address] [place], [address] OPIATES, UR. Negative Normal (< 100 - Cutof) [facility] Comment on above: Order Comment: FACIL ITY: [facility] [id number] Performed By: #### D S-M+ #### [facility] [address] [place], [address] OXYCODONE, UR. Negative Normal (< 100 - Cutof) [facility] Comment on above: Order Comment: FACIL ITY: [facility] [id number] Performed By: #### Ari S-M+ #### [facility] [address] [place], [address] pH (U) 6.0 [pH] Normal (5.0 - 9.0) [facility] Comment on above: Order Comment: FACIL ITY: [facility] [id number] Performed By: #### Ari S-M+ #### [facility] [address] [place], [address] PHENCYCLIDINE, UR. Negative Normal (< 25 - Cutof) [facility] Comment on above: Order Comment: FACIL ITY: [facility] [id number] Performed By: #### D S-M+ #### [facility] [address] [place], [address] THC METABOLITE, UR. Positive High (< 20 - Cutof) [facility] Comment on above: Order Comment: FACIL ITY: [facility] [id number] Result Comment: THC METABOLITE URINE SCREEN = POSITIVE Specimen sent for confirmation testing for THC - [facility] test # [id number] Performed By: #### D S-M+ #### [facility] [address] [facility], [address] TRAMADOL, UR SCREEN Negative Normal (< 200 - Cutof) [facility] Comment on above: Order Comment: FACIL ITY: [facility] [id number] Result Comment: This drug testing is for medical treatment only. Analysis was performed as non-forensic testing and the results should be used only by healthcare providers to render diagnosis or treatment, or to monitor the progress of medical conditions. Performed By: #### D S-M+ #### [facility] [address] [facility], [address] US ALISA DOP LEG RTon 09-16-19 US ALISA DOP LEG RT EXAM: US [...] WILFRIDO FORD Date: 2022-09-15 09:[address] [facility] CBC AUTO DIFFon 09-14-2022 BASO # 0.0 103/ul Normal 0.0-0.1 [facility] Comment on above: Performed By: #### C BC #### [facility] [address] [place] [address] Dr. Brock Elias Basophils/100 WBC (Bld) 0.4 % Normal 0.2-2.0 [facility] Comment on above: Performed By: #### C BC #### [facility] [address] [address] [address] Brock Elias EO # 0.2 103/ul Normal 0.0-0.7 [facility] Comment on above: Performed By: #### C BC #### [facility] [address] [address] [address] Brock Elias Eosinophils/100 WBC (Bld) 2.1 % Normal 0.9-7.0 [facility] Comment on above: Performed By: #### C BC #### [facility] [address] [place] [address] Dr. Brock Elias Erythrocyte distribution width (RBC) [Ratio] 15.2 % Critically high 11.0-15.0 [facility] Comment on above: Performed By: #### C BC #### [facility] [address] [place] [address] Dr. Brock Elias Hematocrit (Bld) [Volume fraction] 40.0 % Normal 36.0-48.0 [facility] Comment on above: Performed By: #### C BC #### [facility] [address] [place] [address] Dr. Brock Elias Hemoglobin (Bld) [Mass/Vol] 13.4 g/dL Normal 12.0-16.0 [facility] Comment on above: Performed By: #### C BC #### [facility] [address] [place] [address] Dr. Brock Elias IG # 0.02 10e3/ul Normal 0.00-0.03 [facility] Comment on above: Performed By: #### C BC #### [facility] [address] [place] [address] Dr. Brock Elias IG % 0.3 % Normal 0.0-0.5 [facility] Comment on above: Performed By: #### C BC #### [facility] [address] [place] [address] Dr. Brock Elias LYMPH # 1.9 103/ul Normal 1.2-3.8 [facility] Comment on above: Performed By: #### C BC #### [facility] [address] [place] [address] Dr. Brock Elias Lymphocytes/100 WBC (Bld) 26.7 % Normal 20.5-60.0 [facility] Comment on above: Performed By: #### C BC #### [facility] [address] [place] [address] Dr. Brock Elias MANUAL DIFF REQ NO [facility] Comment on above: Performed By: #### C BC #### [facility] [address] [address] [address] Brock Elias MCH (RBC) [Entitic mass] 28.6 pg Normal 26.7-34.0 [facility] Comment on above: Performed By: #### C BC #### [facility] [address] [place] [address] Dr. Brock Elias MCHC (RBC) [Mass/Vol] 33.5 g/dL Normal 29.9-35.[address] [facility] Comment on above: Performed By: #### C BC #### [facility] [address] [place] [address] Dr. Brock Elias MCV (RBC) [Entitic vol] 85.5 fL Normal 81.0-99.0 [facility] Comment on above: Performed By: #### C BC #### [facility] [address] [place] [address] Dr. Brock Elias MONO # 0.4 103/ul Normal 0.3-0.[address] [facility] Comment on above: Performed By: #### C BC #### [facility] [address] [place] [address] Dr. Brock Elias Monocytes/100 WBC (Bld) 5.3 % Normal 1.7-12.0 [facility] Comment on above: Performed By: #### C BC #### [facility] [address] [place] [address] Dr. Brock Elias NEUT # 4.6 103/ul Normal 1.4-6.[address] [facility] Comment on above: Performed By: #### C BC #### [facility] [address] [place] [address] Dr. Brock Elias Neutrophils/100 WBC (Bld) 65.2 % Normal 43.0-75.[address] [facility] Comment on above: Performed By: #### C BC #### [facility] [address] [place] [address] Dr. Brock Elias Platelet mean volume (Bld) [Entitic vol] 9.9 fL Normal 9.5-13.[address] [facility] Comment on above: Performed By: #### C BC #### [facility] [address] [place] [address] Dr. Brock Elias PLT 225 103/ul Normal 150-450 [facility] Comment on above: Performed By: #### C BC #### [facility] [address] [place], [place] [address] Dr. Brock Elias RBC 4.68 106/ul Normal 4.20-5.40 [facility] Comment on above: Performed By: #### C BC #### [facility] [address] [place] [address] Dr. Brock Elias WBC 7.0 103/ul Normal 4.0-11.0 [facility] Comment on above: Performed By: #### C BC #### [facility] [address] [place] [address] Dr. Brock Elias D-DIMERon 09-14-2022 D-DIMER 2.02 mg/L FEU Critically high <=0.59 [facility] Comment on above: Performed By: #### H IV12 #### [facility] [address] [place] [address] Dr. Brock Elias D-DIMER COMMENTS SEE BELOW Normal [facility] Comment on above: Result Comment: Incr eases [...] hospitalization. Performed By: #### H IV12 #### [facility] [address] [place] [address] Dr. Brock Elias LACTATE/LACTIC ACIDon 2022 Lactate [Moles/Vol] 0.9 mmol/L Normal 0.4-2.0 [facility] Comment on above: Performed By: #### L ACT #### [facility] [address] [address] [address] Brock Elias PROF CHEM 8 (BAS METB)on Anion gap [Moles/Vol] 8.7 mmol/L Normal [facility] Comment on above: Performed By: #### B MP #### [facility] [address] [address] [address] Brock Elias Calcium [Mass/Vol] 8.9 mg/dL Normal 8.5-10.1 [facility] Comment on above: Performed By: #### B MP #### [facility] [address] [address] [address] Brock Elias Chloride [Moles/Vol] 105 mmol/L Normal 98-[address] [facility] Comment on above: Performed By: #### B MP #### [facility] [address] [place] [address] Dr. Brock Elias CO2 [Moles/Vol] 29.3 mmol/L Normal 21.0-32.0 [facility] Comment on above: Performed By: #### B MP #### [facility] [address] [place] [address] Dr. Brock Elias Creatinine [Mass/Vol] 0.81 mg/dL Normal 0.55-1.02 [facility] Comment on above: Performed By: #### B MP #### [facility] [address] [place] [address] Dr. Brock Elias EGFR-AF CITIZEN [place] >60 Normal >=60 [facility] Comment on above: Performed By: #### B MP #### [facility] [address] [place] [address] Dr. Brock Elias EGFR-NON AF CITIZEN OF [place] >60 Normal >=[address] [facility] Comment on above: Performed By: #### B MP #### [facility] [address] [place] [address] Dr. Brock Elias Glucose [Mass/Vol] 106 mg/dL Normal 74-106 [facility] Comment on above: Performed By: #### B MP #### [facility] [address] [place] [address] Dr. Brock Elias Potassium [Moles/Vol] 4.0 mmol/L Normal 3.5-5.1 [facility] Comment on above: Performed By: #### B MP #### [facility] [address] [address] [address] Brock Elias Sodium [Moles/Vol] 139 mmol/L Normal 136-145 [facility] Comment on above: Performed By: #### B MP #### [facility] [address] [address] [address] Brock Elias Urea nitrogen [Mass/Vol] 11.0 mg/dL Normal 7.0-18.0 [facility] Comment on above: Performed By: #### B MP #### [facility] [address] [address] [address] Brock Elias Urea nitrogen/Creatinine [Mass ratio] 13.6 mg/mg Normal [facility] Comment on above: Performed By: #### B MP #### [facility] [address] [address] [address] Brock Elias Office Visiton 09-12-2022 Follow-up visit [id number] Jackie Mendoza 1975 F Date Provider Department Center 09/12/2022 [facility] Nila Heal Family History Problem Relation Age of Onset No Known Problems Father Family Status - Relation Status Age at Mother Notes: cancer brast ca, ovarian, skin, heart disease Father Level of Service:46269 [place] OFFICE/OUTPATIENT ESTABLISHED MOD MDM 30-39 MIN () Reason for Visit and Comments: New Patient [632] - New Pt, possible fibromyalgia Normal [facility] HIV 1 AND 2 WITH REFLEXon HIV Screen 4th Generation wRfx Non-Reactive Normal Non Reactive [facility] Comment on above: Result Comment: HIV Negative HIV-1/HIV-2 antibodies and HIV-1 p24 antigen were NOT detected. There is no laboratory evidence of HIV infection. Performed By: #### H IV12 #### [facility] [address] [address] [address] Brock Elias XR ELBOW MARTHA MIN 3 VIEWSon 0 2-22-2023 XR ELBOW MARTHA MIN 3 VIEWS EXAMINATION: [...] by: GILL MORENO Date: 2022-08-13 10:47 Normal [facility] XR HAND MARTHA MIN 3Von [...] by: GILL MORENO Date: 2022-08-13 10:45 Normal [facility] XR KNEE MARTHA 3 Von [...] MELISSA GATES Date: 2022-08-12 17:[address] [facility] XR WRIST MARTHA MIN 3 Von 08-12 [...] MELISSA GATES Date: 2022-08-12 17:[address] [facility] LUCINDA EIA W/REFLEX 9 BIOMARKER Son 07-23-2022 LUCINDA Direct Negative Normal Negative [facility] Comment on above: Performed By: #### H IV12 #### [facility] [address] [place] [address] Dr. Brock Elias C-REACTIVE PROTEINS (HS)on 0 07-23-2022 C-Reactive Protein, Cardiac 4.28 mg/L Critically high 0.00-3.00 [facility] Comment on above: Result Comment: Rela tive Risk for Future Cardiovascular Event Low <1.00 Average 1.00 - 3.00 High >3.00 Performed By: #### C RPHS #### [facility] [address] [place] [address] Dr. Brock Elias CYCLIC CITRULLINATED PEPTIDE AB (CCP)on 07-23-2022 CCP Antibodies IgG/IgA 6 units Normal 0-[address] [facility] Comment on above: Result Comment: Nega tive <20 Weak positive 20 - 39 Moderate positive 40 - 59 Strong positive >59 Performed By: #### R F #### [facility] [address] [place] [address] Dr. Brock Elias RHEUMATOID FACTORon 07-23-19 23 RA Latex Turbid. <10.0 Normal <14.0 [facility] Comment on above: Performed By: #### R F #### [facility] [address] [address] [address] Brock Elias GLYCOHEMOGLOBIN A1Con 2022 ADA RECOMMENDATION SEE BELOW Normal [facility] Comment on above: Result Comment: ADA RECOMMENDED LIMIT 4.0 - 6.0 ADA THERAPEUTIC TARGET < 7.0 ACTION SUGGESTED > 7.0 Performed By: #### C MP #### [facility] [address] [address] [address] Brock Elias Glucose [Mass/Vol] 126 mg/dL Normal [facility] Comment on above: Performed By: #### C MP #### [facility] [address] [place] [address] Dr. Brock Elias HbA1c (Bld) [Mass fraction] 6.0 % Normal 4.5-6.2 [facility] Comment on above: Performed By: #### C MP #### [facility] [address] [address] [address] Brock Elias PROF 14(COMP METB)on 023 Albumin [Mass/Vol] 3.9 g/dL Normal 3.4-5.0 [facility] Comment on above: Performed By: #### C MP #### [facility] [address] [place] [address] Dr. Brock Elias Albumin/Globulin [Mass ratio] 1.1 {ratio} Normal [facility] Comment on above: Performed By: #### C MP #### [facility] [address] [place] [address] Dr. Brock Elias ALP [Catalytic activity/Vol] 88 U/L Normal 46-[address] [facility] Comment on above: Performed By: #### C MP #### [facility] [address] [place] [address] Dr. Brock Elias ALT [Catalytic activity/Vol] 28 U/L Normal 14-[address] [facility] Comment on above: Performed By: #### C MP #### [facility] [address] [place] [address] Dr. Brock Elias Anion gap [Moles/Vol] 13.8 mmol/L Normal [facility] Comment on above: Performed By: #### C MP #### [facility] [address] [place] [address] Dr. Brock Elias AST [Catalytic activity/Vol] 31 U/L Normal 15-37 [facility] Comment on above: Performed By: #### C MP #### [facility] [address] [address] [address] Brock Elias Bilirubin [Mass/Vol] 0.6 mg/dL Normal 0.2-1.0 [facility] Comment on above: Performed By: #### C MP #### [facility] [address] [place] [address] Dr. Brock Elias Calcium [Mass/Vol] 8.9 mg/dL Normal 8.5-10.1 [facility] Comment on above: Performed By: #### C MP #### [facility] [address] [place] [address] Dr. Brock Elias Chloride [Moles/Vol] 104 mmol/L Normal 98-107 [facility] Comment on above: Performed By: #### C MP #### [facility] [address] [place] [address] Dr. Brock Elias CO2 [Moles/Vol] 28.5 mmol/L Normal 21.0-32.0 [facility] Comment on above: Performed By: #### C MP #### [facility] [address] [place] [address] Dr. Brock Elias Creatinine [Mass/Vol] 0.76 mg/dL Normal 0.55-1.02 [facility] Comment on above: Performed By: #### C MP #### [facility] [address] [place] [address] Dr. Brock Elias EGFR-AF CITIZEN [place] >60 Normal >=60 [facility] Comment on above: Performed By: #### C MP #### [facility] [address] [place] [address] Dr. Brock Elias EGFR-NON AF CITIZEN OF [place] >60 Normal >=60 [facility] Comment on above: Performed By: #### C MP #### [facility] [address] [address] [address] Brock Elias Globulin (S) [Mass/Vol] 3.7 g/dL Normal [facility] Comment on above: Performed By: #### C MP #### [facility] [address] [address] [address] Brock Elias Glucose [Mass/Vol] 107 mg/dL Critically high 74-106 [facility] Comment on above: Performed By: #### C MP #### [facility] [address] [address] [address] Brock Elias Potassium [Moles/Vol] 4.3 mmol/L Normal 3.5-5.1 [facility] Comment on above: Performed By: #### C MP #### [facility] [address] [place] [address] Dr. Brock Elias Protein [Mass/Vol] 7.6 g/dL Normal 6.4-8.2 [facility] Comment on above: Performed By: #### C MP #### [facility] [address] [place] [address] Dr. Brock Elias Sodium [Moles/Vol] 142 mmol/L Normal 136-145 [facility] Comment on above: Performed By: #### C MP #### [facility] [address] [place] [address] Dr. Brock Elias Urea nitrogen [Mass/Vol] 15.0 mg/dL Normal 7.0-18.0 [facility] Comment on above: Performed By: #### C MP #### [facility] [address] [address] [address] Brock Elias Urea nitrogen/Creatinine [Mass ratio] 19.7 mg/mg Normal [facility] Comment on above: Performed By: #### C MP #### [facility] [address] [address] [address] Brock Elias SED RATE [facility] 2022 SED RATE 29 mm/hr Critically high <=20 [facility] Comment on above: Performed By: #### R F #### [facility] [address] [address] [address] Brock Elias PROF 14(COMP METB)on 023 Albumin [Mass/Vol] 3.6 g/dL Normal 3.4-5.0 [facility] Comment on above: Performed By: #### C MP #### [facility] [address] [address] [address] Brock Elias Albumin/Globulin [Mass ratio] 1.1 {ratio} Normal [facility] Comment on above: Performed By: #### C MP #### [facility] [address] [address] [address] Brock Elias ALP [Catalytic activity/Vol] 83 U/L Normal 46-116 [facility] Comment on above: Performed By: #### C MP #### [facility] [address] [place] [address] Dr. Brock Elias ALT [Catalytic activity/Vol] 22 U/L Normal 14-59 [facility] Comment on above: Performed By: #### C MP #### [facility] [address] [address] [address] Brock Elias Anion gap [Moles/Vol] 12.8 mmol/L Normal [facility] Comment on above: Performed By: #### C MP #### [facility] [address] [place] [address] Dr. Brock Elias AST [Catalytic activity/Vol] 17 U/L Normal 15-[address] [facility] Comment on above: Performed By: #### C MP #### [facility] [address] [place] [address] Dr. Brock Elias Bilirubin [Mass/Vol] 0.5 mg/dL Normal 0.2-1.0 [facility] Comment on above: Performed By: #### C MP #### [facility] [address] [place] [address] Dr. Brock Elias Calcium [Mass/Vol] 8.5 mg/dL Normal 8.5-10.1 [facility] Comment on above: Performed By: #### C MP #### [facility] [address] [address] [address] Brock Elias Chloride [Moles/Vol] 104 mmol/L Normal 98-[address] [facility] Comment on above: Performed By: #### C MP #### [facility] [address] [address] [address] Brock Elias CO2 [Moles/Vol] 26.3 mmol/L Normal 21.0-32.0 [facility] Comment on above: Performed By: #### C MP #### [facility] [address] [address] [address] Brock Elias Creatinine [Mass/Vol] 0.79 mg/dL Normal 0.55-1.[address] [facility] Comment on above: Performed By: #### C MP #### [facility] [address] [place] [address] Dr. Brock Elias EGFR-AF CITIZEN OF [place] >60 Normal >=60 [facility] Comment on above: Performed By: #### C MP #### [facility] [address] [place] [address] Dr. Brock Elias EGFR-NON AF CITIZEN OF [place] >60 Normal >=[address] [facility] Comment on above: Performed By: #### C MP #### [facility] [address] [address] [address] Brock Elias Globulin (S) [Mass/Vol] 3.3 g/dL Normal [facility] Comment on above: Performed By: #### C MP #### [facility] [address] [address] [address] Brock Elias Glucose [Mass/Vol] 153 mg/dL Critically high 74-106 [facility] Comment on above: Performed By: #### C MP #### [facility] [address] [place] [address] Dr. Brock Elias Potassium [Moles/Vol] 4.1 mmol/L Normal 3.5-5.1 [facility] Comment on above: Performed By: #### C MP #### [facility] [address] [address] [address] Brock Elias Protein [Mass/Vol] 6.9 g/dL Normal 6.4-8.2 [facility] Comment on above: Performed By: #### C MP #### [facility] [id number] [address] Brock Elias Sodium [Moles/Vol] 139 mmol/L Normal 136-145 [facility] Comment on above: Performed By: #### C MP #### [facility] [id number] Brock Elias Urea nitrogen [Mass/Vol] 12.0 mg/dL Normal 7.0-18.0 [facility] Comment on above: Performed By: #### C MP #### [facility] [address] [address] [address] Brock Elias Urea nitrogen/Creatinine [Mass ratio] 15.2 mg/mg Normal [facility] Comment on above: Performed By: #### C MP #### [facility] [address] [address] [address] Brock Elias US VAC ASST BX BREAST RT W C LIPon 06-12-2022 US VAC ASST BX BREAST RT W CLIP Begin Addendum #1 COLLECTED DATE/TIME: 06/04/2022 08:21 EST Final Diagnosis Report for [facility] [place] ULTRASOUND GUIDED CORE BIOPSY RIGHT BREAST LESION AND CALCIFICATIONS, 5 O'CLOCK: -FIBROCYSTIC CHANGE WITH APOCRINE METAPLASIA, USUAL DUCTAL HYPERPLASIA AND MICROCALCIFICATION. 06/10/2022 faxed to Donnie Kaminski NP (). Verified with Alida that report was present in office (). Original Report EXAM: US VAC ASST BX [...] after pathology results are available. Normal [facility] MAMMO POST BIOPSY RIGHTon MAMMO POST BIOPSY RIGHT Patient: RADHA SANTACRUZ Exam Date: 06/04/2022 : 1975 Gender:F Ordering : DONNIE KAMINSKI LICENSED ESTHETICIAN-C Admission #: [id number] Family : Order #: [id number] CLICK HERE TO VIEW EXAM RADIOLOGY REPORT [...] Moreno M.D. on 06/09/2022 at 13:27 Normal [facility] 05-28-2022 [facility] Telephone (ANGELINA) RADHA SANTACRUZ NEEL ([id number]) 1975 F Date Time Provider Department 05/28/22 CHANCE LANGLEY During your visit today, we recorded the following information about you: Bandar Laguna 05/28/2022 2:23 PM Signed Pt is being referred by [facility] dx Breast Ca. Per Karina [...] (None) Encounter Status:Closed by BANDAR LAGUNA on 12/9/22 Normal [facility] MAMM RT DIAG FUon 022 MG MAMM RT DIAG FU Patient: ONIEL SANTACRUZ Exam Date: 05/28/2022 : 1975 Gender:F Ordering : DONNIE KAMINSKI LICENSED ESTHETICIAN-C Admission #: [id number] Family : Order #: [id number] CLICK HERE TO VIEW EXAM RADIOLOGY REPORT [...] breast cancer at age 38. LOCATION: [facility] BREAST COMPOSITION: Scattered areas fibroglandular density. FINDINGS: [...] M.D. on 05/28/2022 at 12:[address] [facility] US BREAST RIGHT LIMITEDon US BREAST RIGHT LIMITED Patient: RADHA SANTACRUZ Exam Date: 05/28/2022 : 1975 Gender:F Ordering : DONNIE KAMINSKI LICENSED ESTHETICIAN-C Admission #: [id number] Family : Order #: [id number] CLICK HERE TO VIEW EXAM RADIOLOGY REPORT [...] breast cancer at age 38. LOCATION: [facility] BREAST COMPOSITION: Scattered areas fibroglandular density. FINDINGS: [...] Moreno M.D. on 05/28/2022 at 12:33 Normal [facility] XR HAND MARTHA MIN 3Von 022 XR HAND MARTHA MIN 3V EXAM: XR HAND MARTHA LA N 3V HISTORY: Bilateral hand pain COMPARISON: None. TECHNIQUE: 3 views of each hand FINDINGS: No fracture, dislocation, subluxation or osseous lesion. Joint spaces are normal for patient's age. No visualized erosion or joint effusion. No soft tissue edema. IMPRESSION: Normal hand x-rays Electronically authenticated by: AGUSTIN ADAMSON Date: 2022-05-19 16:32 Normal [facility] XR LSPINE 2_3 VIEWSon 2021 [...] by: AGUSTIN ADAMSON Date: 2022-05-19 16:29 Normal [facility] MAMM SCREEN 3D MARTHA CADon 04-29-2022 MG MAMM SCREEN 3D MARTHA CAD Patient: RADHA SANTACRUZ Exam Date: 04/29/2022 : 1975 Gender:F Ordering : DONNIE KAMINSKI LICENSED ESTHETICIAN-C Admission #: [id number] Family : Order #: [id number] CLICK HERE TO VIEW EXAM RADIOLOGY REPORT [...] breast cancer at age 38. LOCATION: [facility] BREAST COMPOSITION: Scattered areas fibroglandular density. FINDINGS: [...] Stephenson MD on 04/30/2022 at 07:26 Normal [facility] Physician Referralon 10-25-2 022 Physician Referral [id number] 00 [id number] 0CD:127 Normal [facility] Physician Referral [id number] 00 [id number] 0CD:127 Normal [facility] CBC AUTO DIFFon 04-14-2022 BASO # 0.1 103/ul Normal 0.0-0.1 [facility] Comment on above: Performed By: #### C MP #### [facility] [address] [place] [address] Dr. Brock Elias Basophils/100 WBC (Bld) 0.8 % Normal 0.2-2.0 [facility] Comment on above: Performed By: #### C MP #### [facility] [address] [place] [address] Dr. Brock Elias EO # 0.2 103/ul Normal 0.0-0.7 [facility] Comment on above: Performed By: #### C MP #### [facility] [address] [place] [address] Dr. Brock Elias Eosinophils/100 WBC (Bld) 2.1 % Normal 0.9-7.0 [facility] Comment on above: Performed By: #### C MP #### [facility] [address] [place] [address] Dr. Brock Elias Erythrocyte distribution width (RBC) [Ratio] 14.0 % Normal 11.0-15.0 [facility] Comment on above: Performed By: #### C MP #### [facility] [address] [place] [address] Dr. Brock Elias Hematocrit (Bld) [Volume fraction] 39.6 % Normal 36.0-48.0 [facility] Comment on above: Performed By: #### C MP #### [facility] [address] [place] [address] Dr. Brock Elias Hemoglobin (Bld) [Mass/Vol] 12.6 g/dL Normal 12.0-16.0 [facility] Comment on above: Performed By: #### C MP #### [facility] [address] [place] [address] Dr. Brock Elias IG # 0.02 10e3/ul Normal 0.00-0.03 [facility] Comment on above: Performed By: #### C MP #### [facility] [address] [place] [address] Dr. Brock Elias IG % 0.2 % Normal 0.0-0.5 [facility] Comment on above: Performed By: #### C MP #### [facility] [address] [place] [address] Dr. Brock Elias LYMPH # 2.2 103/ul Normal 1.2-3.8 [facility] Comment on above: Performed By: #### C MP #### [facility] [address] [place] [address] Dr. Brock Elias Lymphocytes/100 WBC (Bld) 25.5 % Normal 20.5-60.0 [facility] Comment on above: Performed By: #### C MP #### [facility] [address] [place] [address] Dr. Brock Elias MANUAL DIFF REQ NO [facility] Comment on above: Performed By: #### C MP #### [facility] [address] [place] [address] Dr. Brock Elias MCH (RBC) [Entitic mass] 28.0 pg Normal 26.7-34.0 [facility] Comment on above: Performed By: #### C MP #### [facility] [address] [place] [address] Dr. Brock Elias MCHC (RBC) [Mass/Vol] 31.8 g/dL Normal 29.9-35.2 [facility] Comment on above: Performed By: #### C MP #### [facility] [address] [place] [address] Dr. Brock Elias MCV (RBC) [Entitic vol] 88.0 fL Normal 81.0-99.0 [facility] Comment on above: Performed By: #### C MP #### [facility] [address] [place] [address] Dr. Brock Elias MONO # 0.4 103/ul Normal 0.3-0.8 [facility] Comment on above: Performed By: #### C MP #### [facility] [address] [address] [address] Brock Elias Monocytes/100 WBC (Bld) 4.8 % Normal 1.7-12.0 [facility] Comment on above: Performed By: #### C MP #### [facility] [address] [address] [address] Brock Elias NEUT # 5.6 103/ul Normal 1.4-6.5 [facility] Comment on above: Performed By: #### C MP #### [facility] [address] [address] [address] Brock Elias Neutrophils/100 WBC (Bld) 66.6 % Normal 43.0-75.0 [facility] Comment on above: Performed By: #### C MP #### [facility] [address] [place] [address] Dr. Brock Elias Platelet mean volume (Bld) [Entitic vol] 9.9 fL Normal 9.5-13.5 [facility] Comment on above: Performed By: #### C MP #### [facility] [address] [address] [address] Brock Elias PLT 266 103/ul Normal 150-450 [facility] Comment on above: Performed By: #### C MP #### [facility] [address] [place] [address] Dr. Brock Elisa RBC 4.50 106/ul Normal 4.20-5.40 [facility] Comment on above: Performed By: #### C MP #### [facility] [address] [place] [address] Dr. Brock Elias WBC 8.5 103/ul Normal 4.0-11.0 [facility] Comment on above: Performed By: #### C MP #### [facility] [address] [place] [address] Dr. Brock Elias GLYCOHEMOGLOBIN A1Con 2021 ADA RECOMMENDATION SEE BELOW Normal [facility] Comment on above: Result Comment: ADA RECOMMENDED LIMIT 4.0 - 6.0 ADA THERAPEUTIC TARGET < 7.0 ACTION SUGGESTED > 7.0 Performed By: #### A 1C #### [facility] [address] [address] [address] Brock Elias Glucose [Mass/Vol] 123 mg/dL Normal [facility] Comment on above: Performed By: #### A 1C #### [facility] [address] [address] [address] Brock Elias HbA1c (Bld) [Mass fraction] 5.9 % Normal 4.5-6.2 [facility] Comment on above: Performed By: #### A 1C #### [facility] [address] [place] [address] Dr. Brock Elias LIPID PROFILEon 04-14-2022 CHOL-HDL RATIO NORM SEE BELOW Normal [facility] Comment on above: Result Comment: 3.3 - 4.4 LOW RISK 4.4 - 7.1 AVERAGE RISK 7.1 - 11.0 MODERATE RISK >11.0 HIGH RISK Performed By: #### R F #### [facility] [address] [place] [address] Dr. Brock Elias Cholesterol [Mass/Vol] 133 mg/dL Normal <=200 [facility] Comment on above: Performed By: #### R F #### [facility] [address] [place] [address] Dr. Brock Elias Cholesterol in HDL [Mass/Vol] 43 mg/dL Normal 40-60 [facility] Comment on above: Performed By: #### R F #### [facility] [address] [place] [address] Dr. Brock Elias Cholesterol in LDL [Mass/Vol] 74.2 mg/dL Normal [facility] Comment on above: Performed By: #### R F #### [facility] [address] [place] [address] Dr. Brock Elias Cholesterol.total/Ch olesterol in HDL [Mass ratio] 3.1 {ratio} Normal [facility] Comment on above: Performed By: #### R F #### [facility] [address] [place] [address] Dr. Brock Elias HDL NORMAL > or = 60 mg/dl - LO W CARDIOVASCULAR RISK <40 mg/dl - HIGH CARDIOVASCULAR RISK Normal [facility] Comment on above: Performed By: #### R F #### [facility] [address] [address] [address] Brock Elias LDL CALC NORMAL SEE BELOW Normal [facility] Comment on above: Result Comment: <100 mg/dl OPTIMAL 100 - 129 mg/dl NEAR OR ABOVE OPTIMAL 130 - 159 mg/dl BORDERLINE HIGH 160 - 189 mg/dl HIGH >190 mg/dl VERY HIGH Performed By: #### R F #### [facility] [address] [address] [address] Brock Elias Triglyceride [Mass/Vol] 79 mg/dL Normal <=150 [facility] Comment on above: Performed By: #### R F #### [facility] [address] [place] [address] Dr. Brock Elias VLDL CALC 15.8 mg/dL Normal [facility] Comment on above: Performed By: #### R F #### [facility] [address] [address] [address] Brock Elias PROF 14(COMP METB)on 022 Albumin [Mass/Vol] 3.6 g/dL Normal 3.4-5.0 [facility] Comment on above: Performed By: #### H IV12 #### [facility] [address] [address] [address] Brock Elias Albumin/Globulin [Mass ratio] 0.9 {ratio} Normal [facility] Comment on above: Performed By: #### H IV12 #### [facility] [address] [address] [address] Brock Elias ALP [Catalytic activity/Vol] 83 U/L Normal 46-116 [facility] Comment on above: Performed By: #### H IV12 #### [facility] [address] [address] [address] Brock Elias ALT [Catalytic activity/Vol] 15 U/L Normal 14-59 [facility] Comment on above: Performed By: #### H IV12 #### [facility] [address] [address] [address] Brock Elias Anion gap [Moles/Vol] 9.5 mmol/L Normal [facility] Comment on above: Performed By: #### H IV12 #### [facility] [address] [address] [address] Brock Elias AST [Catalytic activity/Vol] 12 U/L Critically low 15-37 [facility] Comment on above: Performed By: #### H IV12 #### [facility] [address] [address] [address] Brock Elias Bilirubin [Mass/Vol] 0.4 mg/dL Normal 0.2-1.0 [facility] Comment on above: Performed By: #### H IV12 #### [facility] [address] [address] [address] Brock Elias Calcium [Mass/Vol] 8.9 mg/dL Normal 8.5-10.1 [facility] Comment on above: Performed By: #### H IV12 #### [facility] [address] [address] [address] Brock Elias Chloride [Moles/Vol] 105 mmol/L Normal 98-107 [facility] Comment on above: Performed By: #### H IV12 #### [facility] [address] [address] [address] Brock Elias CO2 [Moles/Vol] 28.5 mmol/L Normal 21.0-32.0 [facility] Comment on above: Performed By: #### H IV12 #### [facility] [address] [address] [address] Brock Elias Creatinine [Mass/Vol] 0.73 mg/dL Normal 0.55-1.02 [facility] Comment on above: Performed By: #### H IV12 #### [facility] [address] [address] [address] Brock Elias EGFR-AF CITIZEN [place] >60 Normal >=60 [facility] Comment on above: Performed By: #### H IV12 #### [facility] [address] [place] [address] Dr. Brock Elias EGFR-NON AF CITIZEN OF [place] >60 Normal >=60 [facility] Comment on above: Performed By: #### H IV12 #### [facility] [address] [place] [address] Dr. Brock Elias Globulin (S) [Mass/Vol] 3.8 g/dL Normal [facility] Comment on above: Performed By: #### H IV12 #### [facility] [address] [address] [address] Brock Elias Glucose [Mass/Vol] 99 mg/dL Normal 74-106 [facility] Comment on above: Performed By: #### H IV12 #### [facility] [address] [place] [address] Dr. Brock Elias Potassium [Moles/Vol] 4.0 mmol/L Normal 3.5-5.1 [facility] Comment on above: Performed By: #### H IV12 #### [facility] [address] [place] [address] Dr. Brock Elias Protein [Mass/Vol] 7.4 g/dL Normal 6.4-8.2 [facility] Comment on above: Performed By: #### H IV12 #### [facility] [address] [place] [address] Dr. Brock Elias Sodium [Moles/Vol] 139 mmol/L Normal 136-145 [facility] Comment on above: Performed By: #### H IV12 #### [facility] [address] [place] [address] Dr. Brock Elias Urea nitrogen [Mass/Vol] 12.0 mg/dL Normal 7.0-18.0 [facility] Comment on above: Performed By: #### H IV12 #### [facility] [address] [place] [address] Dr. Brock Elias Urea nitrogen/Creatinine [Mass ratio] 16.4 mg/mg Normal [facility] Comment on above: Performed By: #### H IV12 #### [facility] [address] [place] [address] Dr. Brock Elias TSHon 04-14-2022 TSH 1.033 uIU/mL Normal 0.358-3.740 [place] Comment on above: Performed By: #### H IV12 #### [facility] [address] [place] [address] Dr. Brock Elias HEMOGLOBINon 04-10-2022 Hemoglobin (Bld) [Mass/Vol] 13.0 g/dL Normal 12.0-16.0 [facility] Comment on above: Performed By: #### C MP #### [facility] [address] [address] [address] Brock Elias Operative Reporton 2 Operative Report MR#: [id number] 2 [facility] Pt. Name: Radha Santacruz Room #: [id number] Discharge 03/01/2022 Date: Birthdate: 1975 OPERATIVE REPORT [...] point, (more content not included)... Normal [facility] POC GLUCOSE LABon 02-28-2022 Glucose [Mass/Vol] 94 mg/dL Normal 70-100 [facility] Comment on above: Performed By: #### 8 [id number] #### [address] PORTABLE KNEE RIGHT 2 [facility] 02-28-2022 PORTABLE KNEE RIGHT 2 [facility] Department of Radiology [address] [place] [id number] ======== Patient Name: RADHA SANTACRUZ : 1975 Sex: F Age: Race: White Pt. Location: OUTP Patient Status: O Ordered Date: 02/28/2022 4:45:00 PM Completed Date: 02/28/2022 05:42 PM Requesting Provider: TIM VILLELA Attending Provider: PETERSON BHATIA Report Copy To: Signs & Symptoms: Post OP History: Comments: Hardware Evaluation, in PACU Exam: PORTABLE KNEE RIGHT [address] [facility] ======== PORTABLE KNEE RIGHT 2 [facility] CLINICAL INFORMATION: Hardware Evaluation. Post OP. COMPARISON: 11/21/2021. IMPRESSION: * Long stem knee arthroplasty noted with no hardware complication. No fracture. Electronically signed: Joellen Sweeney. Transcribed by: [email or web address], User Resident: Electronically Signed by: JOELLEN SWEENEY @ 02/28/2022 05:45 PM Normal The [facility] Comment on above: Order Comment: Hardw are Evaluation, in PACU MRI KNEE WO CONTRAST RIGHTon 12-10-2021 MRI KNEE WO CONTRAST RIGHT [facility] Department of Radiology [address] [place] [id number] ======== Patient Name: RADHA SANTACRUZ : 1975 Sex: F Age: Race: White Pt. Location: Patient Status: D Ordered Date: 11/21/2021 2:35:00 PM Completed Date: 12/10/2021 01:08 PM Requesting Provider: PETERSON BHATIA Attending Provider: PETERSON BHATIA Report Copy To: Signs & Symptoms: M25.561 Pain in right knee I10 History: [place], pt. has pain pump, ortho hardware back Comments: LEIJA AND NEPHEW PROTOCOL , Side: RIGHT Exam: MRI KNEE WO CONTRAST RIGHT ======== MRI KNEE WO CONTRAST RIGHT 12/10/2021 1:08 PM CLINICAL INDICATIONS: M25.561 Pain in right knee I10 TECHNOLOGIST COMMENTS: pre TKA leija and nephew protocol QUESTION FOR THE RADIOLOGIST: ELIECER PROTOCOL , Side: RIGHT PROTOCOL: Images were [...] above Electronically signed: Adelaida Dinh. Transcribed by: [email or web address], User Resident: Electronically Signed by: ADELAIDA DINH @ 12/11/2021 09:43 AM Normal [facility] Comment on above: Order Comment: ELIECER PROTOCOL , Side: RIGHT KNEE LEFT 3 VWSon 11-21-2021 KNEE LEFT 3 S [facility] Department of Radiology [address] [place] [id number] ======== Patient Name: RADHA SANTACRUZ : 1975 Sex: F Age: Race: White Pt. Location: Patient Status: D Ordered Date: 11/21/2021 12:30:00 PM Completed Date: 11/21/2021 01:35 PM Requesting Provider: PETERSON BHATIA Attending Provider: PETERSON BHATIA Report Copy To: CM LEE Signs & Symptoms: M25.561 Pain in right knee I10 History: [place] Comments: Views (X-RAY, KNEE): AP, Lateral, [place] Exam: KNEE LEFT [address] [facility] ======== KNEE LEFT 3 S 11/21/2021 1:35 PM CLINICAL INDICATIONS: M25.561 Pain in right knee I10 TECHNOLOGIST COMMENTS: Pt stated having bilateral knees pain, no known injury. QUESTION FOR THE RADIOLOGIST: Views (X-RAY, KNEE): AP, Lateral, [place] PROTOCOL: AP,Lateral and Tangential views were obtained. COMPARISON: 11/04/2014 FINDINGS: Severe joint space narrowing in the medial femorotibial compartment. Tricompartmental osteophyte formation. Small knee joint effusion. IMPRESSION: Tricompartmental osteoarthritis most prominent in the medial femorotibial compartment. Electronically signed: Elizabeth Landis. Transcribed by: [email or web address], User Resident: Electronically Signed by: ELIZABETH LANDIS @ 11/23/2021 03:26 PM Normal [facility] Comment on above: Order Comment: Views (X-RAY, KNEE): AP, Lateral, [place] KNEE RIGHT 3 [facility] 2 KNEE RIGHT 3 [facility] Department of Radiology [address] [place] [phone] ======== Patient Name: RADHA SANTACRUZ : 1975 Sex: F Age: Race: White Pt. Location: Patient Status: D Ordered Date: 11/21/2021 12:30:00 PM Completed Date: 11/21/2021 01:35 PM Requesting Provider: PETERSON BHATIA Attending Provider: PETERSON BHATIA Report Copy To: CM LEE Signs & Symptoms: M25.561 Pain in right knee I10 History: [place] Comments: Views (X-RAY, KNEE): AP, Lateral, [place] Exam: KNEE RIGHT 3 VWS ======== KNEE RIGHT 3 VWS 11/21/2021 1:35 PM CLINICAL INDICATIONS: M25.561 Pain in right knee I10 TECHNOLOGIST COMMENTS: Pt stated having bilateral knees pain, no known injury. QUESTION FOR THE RADIOLOGIST: Views (X-RAY, KNEE): AP, Lateral, [place] PROTOCOL: AP,Lateral and Tangential views were obtained. COMPARISON: 02/18/2011 FINDINGS: Severe tricompartmental osteophyte formation and joint space narrowing. No fracture. No malalignment. Moderate knee joint effusion. IMPRESSION: Severe tricompartmental osteoarthritis. Electronically signed: Elizabeth Landis. Transcribed by: [email or web address], User Resident: Electronically Signed by: ELIZABETH LANDIS @ 11/23/2021 03:26 PM Normal [facility] Comment on above: Order Comment: Views (X-RAY, KNEE): AP, Lateral, [place] LOWER EXTREMITY JOINT SURVEY on 11-21-2021 LOWER EXTREMITY JOINT SURVEY [facility] Department of Radiology [address] [place] [phone] ======== Patient Name: RADHA SANTACRUZ : [...] above. Electronically signed: Elizabeth Landis. Transcribed by: [email or web address], User Resident: Electronically Signed by: ELIZABETH LANDIS @ 11/23/2021 11:03 PM Normal [facility] Cytologyon 10-23-2021 Cytology (NOTE) INTERPRETATION Cervical material, (ThinPrep vial, Imaging-assisted review): Specimen Adequacy: Satisfactory for evaluation. - Endocervical/transform ation zone component present. Descriptive Diagnosis: Negative for intraepithelial lesion or malignancy. Dry Roaster: IRINA Estrada(ASCP) Electronically Signed Out yaakov/10/29/2021 Source: A: Cervical material, (ThinPrep vial, Imaging-assisted review) Clinical History Z01.419 Routine manager process improvement exam without abnormal findings High risk HPV DNA testing is requested if the diagnosis is abnormal GYNECOLOGIC CYTOLOGY REPORT Patient Name: RADHA SANTACRUZ [facility] Rec: [id number] Path Number: [id number] [facility] ANATOMIC PATHOLOGY [address] [place] [address]. [place], [place] [address] [facility] Comment on above: Performed By: #### P PPVP #### [employer] [address] [place] [address] [id number] Lift Mechanic: Saw Elizondo MD Surgical Pathologyon 022 Surgical Pathology (NOTE) -- Diagnosis -- ENDOMETRIUM, BIOPSY: - DISORDERED PROLIFERATIVE ENDOMETRIUM. Harjit Flores M.D. Electronically Signed Out 10/25/2021 Clinical Information Pre-op Diagnosis: IRREGULAR/HEAVY MENSTRUAL BLEEDING Operative Findings: ENDOMETRIAL BX Source of Specimen A: ENDO BIOPSY Gross Description RADHA SANTACRUZ, ENDO BIOPSY Blood-tinged mucinous material, 2.5 x 1.5 x 0.5 cm in aggregate. Entirely 1cs. mpb tm Microscopic Description The endometrium has disordered proliferative features. There is no evidence of atypia or malignancy. SURGICAL PATHOLOGY CONSULTATION Patient Name: RADHA SANTACRUZ [facility] Rec: [id number] Path Number: [id number] [employer] [facility]ISTS [facility] ANATOMIC PATHOLOGY [address] [place] [phone] [facility] Comment on above: Performed By: #### P PPVS #### [employer] [address] [place] [id number] Lift Mechanic: Saw Elizondo MD Vital Signs Date Time Vital Sign Value Performing Clinician Facility 06-01-2023 16:00-0500 Body height Kayla Franklin Other [employer] Other 06-01-2023 16:00-0500 Body mass index (BMI) [Ratio] 51.84 kg/m2 Kayla Franklin Other [employer] Other 06-01-2023 16:00-0500 Body temperature 98.4 [degF] Kayla Franklin Other [employer] Other 06-01-2023 16:00-0500 Body weight 124.47 kg Kayla Franklin Other [employer] Other 06-01-2023 16:00-0500 Respiratory rate 18 /min Kaylabashir Castillob Other [employer] Other 06-01-2023 16:00-0500 SaO2% (BldA) [Mass fraction] 93 % Kaylabashir Castillob Other [employer] Other 03-05-2023 16:45-0400 Body temperature 97.2 [degF] Mohit Dejesus MD Work Phone: [employer] 03-05-2023 16:45-0400 Diastolic blood pressure 76 mm[Hg] Mohit Dejesus MD Work Phone: [employer] 03-05-2023 16:45-0400 Heart rate 75 /min Mohit Dejesus MD Work Phone: [employer] 03-05-2023 16:45-0400 Respiratory rate 16 /min Mohit Dejesus MD Work Phone: [employer] 03-05-2023 16:45-0400 SaO2% (BldA) [Mass fraction] 96 % Mohit Dejesus MD Work Phone: [employer] 03-05-2023 16:45-0400 Systolic blood pressure 141 mm[Hg] Mohit Dejesus MD Work Phone: [employer] 03-05-2023 12:57-0400 Body height 154.9 cm Mohit Dejesus MD Work Phone: [employer] 03-05-2023 12:57-0400 Body mass index (BMI) [Ratio] 49.32 kg/m2 Mohit Dejesus MD Work Phone: [employer] 03-05-2023 12:57-0400 Body weight 118.39 kg Mohit Dejesus MD Work Phone: [facility] Encounters Encounter Date Encounter Type Care Provider Facility Start: 09-08-2023 ambulatory WELDER EXPERIMENTAL Casandra Hernandez [facility] ility:[facility] Start: 09-03-2023 End: 09-04-2023 ambulatory CASANDRA [facility] Start: 09-03-2023 End: 09-03-2023 ambulatory [facility] Start: 08-26-2023 Telephone encounter [facility] Start: 08-25-2023 End: 08-25-2023 ambulatory BRITTNEY BETTS [facility] Start: 08-24-2023 End: 08-24-2023 ambulatory ALIS MENDEZ Not Available Start: 08-14-2023 End: 08-15-2023 ambulatory VALORIE ARIAS [facility] Start: 07-30-2023 End: 07-30-2023 ambulatory MEDINA [facility] Start: 07-27-2023 End: 07-27-2023 ambulatory GURJITPORTER [facility] Start: 06-01-2023 End: 06-01-2023 ambulatory Kaylabashir Castillob Other [employer] Other Start: 06-01-2023 Office outpatient vi sit 15 minutes Kayla Franklin [facility] Start: 05-25-2023 End: 05-25-2023 ambulatory ADELAIDA SUBRAMANIAN Not Available Start: 04-27-2023 End: 04-27-2023 ambulatory KIM GARCIA [facility] Start: 03-05-2023 End: 03-05-2023 [facility] Start: 03-05-2023 End: 03-05-2023 Subsequent hospital visit by physician Mohit Dejesus MD Work Phone: [facility] Start: 02-19-2023 End: 02-24-2023 ambulatory [facility] Start: 01-12-2023 End: 01-12-2023 ambulatory [facility] Start: 10-28-2022 End: 10-29-2022 ambulatory DONNIE SHAMMO Facility:[facility] Start: 10-27-2022 End: 10-27-2022 ambulatory [facility] Start: 10-09-2022 ambulatory DONNIE SHAMMO Facility:[facility] Start: 09-18-[facility]22 [facility] Start: 09-15-2022 End: 09-16-2022 ambulatory DONNIE SHAMMO Facility:[facility] Start: 09-14-2022 End: 09-14-2022 ambulatory DONNIE SHAMMO Facility:[facility] Start: 09-12-2022 End: 09-12-2022 ambulatory [facility] Start: 08-13-2022 ambulatory DONNIE SHAMMO Facility:H 1 Start: 08-12-2022 End: 08-13-2022 ambulatory DONNIE SHAMMO Facility:[facility] Start: 07-22-2022 End: 07-23-2022 ambulatory DONNIE SHAMMO Facility:[facility] Start: 07-11-2022 End: 07-12-2022 ambulatory DONNIE SHAMMO Facility:[facility] Start: 06-10-2022 Chart abstracting Jarad hemphill MD Work Phone: Hematology/Oncology Start: 06-04-2022 End: 06-04-2022 ambulatory DONNIE SHAMMO Facility:[facility] Start: 05-28-2022 Telephone encounter Chance stokes MD [facility] Comment on above: Appointment Start: 05-28-2022 End: 05-29-2022 ambulatory DONNIE SHAMMO Facility:[facility] Start: 05-19-2022 End: 05-20-2022 ambulatory DONINE SHAMMO Facility:[facility] Start: 05-07-2022 ambulatory Rick R BEL Facility :[facility] Start: 04-29-2022 End: 04-30-2022 ambulatory DONNIE SHAMMO Facility:[facility] Start: 04-29-2022 ambulatory DONNIE SHAMMO Facility:[facility] Start: 04-20-2022 Encounter for genera l adult medical examination without abnormal findings DONNIE SHAMMO [facility] Start: 04-14-2022 ambulatory DONNIE SHAMMO Facility:G [facility] Start: 04-14-2022 End: 04-15-2022 ambulatory DONNIE SHAMMO Facility:[facility] Start: 04-14-2022 End: 04-15-2022 Encounter for general adult medical examination without abnormal findings DONNIE SHAMMO Facility: Start: 04-10-2022 End: 04-11-2022 ambulatory DONNIE SHAMMO Facility: Start: 02-28-2022 End: 03-01-2022 ambulatory Peterson Jannette Facility:[facility] Start: 01-02-2022 End: 01-02-2022 Subsequent hospital visit by physician Kulwant Arenas MD Work Phone: [facility] Comment on above: No Show Start: 12-10-2021 End: 12-11-2021 ambulatory Peterson Jannette Facility:[facility] Start: 11-21-2021 End: 11-22-2021 ambulatory Peterson Jannette Facility:[facility] Start: 10-23-2021 End: 10-24-2021 [facility] Start: 10-23-2021 End: 10-23-2021 Patient encounter procedure [facility] Start: 10-23-2021 End: 10-23-2021 Subsequent hospital [...] Detail Author Start: 08-08-2026 Lipid panel Lipids [facility] Start: 10-23-2024 Screening for malign ant neoplasm of cervix [facility] Start: 03-31-2024 Adult BMI Screening Adult BMI Screen ing [facility] Start: 03-31-2024 Tobacco Screening Tobacco Screening [facility] Start: 02-20-2024 Hemoglobin A1c measurement A1C test (Diabetic or Prediabetic) [facility] Start: 08-27-2023 End: 08-27-2023 Patient encounter procedure 08/27/2023 12:00 PM EST Office Visit [facility] [address] [place] [address] Tram Hahn MD [address] [place] [address] [facility] Start: 2023 Administration of varicella zoster vaccine Zoster (Shingles) Vaccine (1 of 2) [facility] Start: 03-05-2023 End: 03-05-2023 Impltj/rplcmt ithcl/edrl drug nfs prgrbl pump PAIN PUMP INSERTION REMOVAL Post laminectomy syndrome 03/05/2023 2:52 PM [facility] Start: 02-20-2023 Influenza vaccination Influenza Vacc ine [facility] Start: 01-20-2023 Influenza vaccination Flu vaccine (# 1) [facility] Start: 10-14-2022 Creatinine measurement Creatinine [facility] Start: 10-14-2022 Potassium [Moles/vol ume] in Serum or Plasma Potassium [facility] Start: 02-20-2022 Influenza vaccination [facility] Start: 01-08-2022 End: 01-08-2022 Admission to same day surgery center 01/08/2022 Surgery IP Unit Kulwant Arenas MD [address] [place] [address] DILATATION AND CURETTAGE HYSTEROSCOPY CAUTERY ABLATION-NOVASURE [facility] Comment on above: DILATATION AND CURET TAGE HYSTEROSCOPY CAUTERY ABLATION-NOVASURE Start: 01-08-2022 End: 01-08-2022 Hysteroscopy endometrial ablation DILATATION AND CURETTAGE HYSTEROSCOPY CAUTERY ABLATION DYSFUNCTIONAL UTERINE BLEEDING 01/08/2022 8:50 AM T [facility] Start: 01-08-2022 Subsequent hospital visit by physician 01/08/2022 Hospital Encounter IP Unit Kulwant Arenas MD [address] [place] [address] [facility] Start: 11-01-2021 End: 11-01-2021 Patient encounter procedure 11/01/2021 Office Visit Obstetrics and Gynecology Kulwant Arenas MD [address] [place] [address] [facility] Start: 11-01-2021 End: 11-01-2021 Professional / ancillary services management 11/01/2021 Ancillary Procedure Obstetrics and Gynecology [facility] Start: 06-22-2021 DEPRESSION ASSESSMENT DEPRESSION ASS ESSMENT [facility] Start: 2018 COLOGUARD (FIT-DNA) COLOGUARD (FIT-D NA) [facility] Start: 2018 Colonoscopy COLONOSCOPY [facility] Start: 2018 COLORECTAL CANCER SCREENING COLORECTAL CANCER SCREENING [facility] Start: [address] COLONOGRAPHY [facility] Start: 2018 DIABETES SCREEN DIABETES SCREEN [facility] Start: 2018 FECAL OCCULT BLOOD FECAL OCCULT BLOO D [facility] Start: 2018 LIPID SCREEN LIPID SCREEN [facility] Start: 2018 Screening for malign ant neoplasm of colon [facility] Start: 2018 [facility] Start: 2013 Mammography MAMMOGRAM [facility] Start: 2013 Screening for malign ant neoplasm of breast Breast cancer screen [facility] Start: 2008 Diabetes screen Diabetes screen [facility] Start: 2003 HPV TESTING HPV TESTING [facility] Start: 2003 Screening for malign ant neoplasm of cervix [facility] Start: 1994 PAP TESTING PAP TESTING [facility] Start: 1994 Screening for malign ant neoplasm of cervix Pap smear [facility] Start: 1992 DTaP,Tdap and Td Vaccines (1 - Tdap) DTaP,Tdap and Td Vaccines (1 - Tdap) [facility] Start: 1992 DTaP/Tdap/Td vaccine (1 - Tdap) DTaP/Tdap/Td vaccine (1 - Tdap) [facility] Start: 1992 Urine microalbumin profile DTAP,TDAP,TD (1 - Tdap) [facility] Start: 1991 Adult BMI Follow Up Plan Adult BMI Follow Up Plan [facility] Start: 1991 Hepatitis C [facility] Start: 1991 HEPATITIS C [facility] Start: 1991 HIV SCREENING HIV SCREENING [facility] Start: 1988 HIV screening HIV screen [facility] Start: 1985 Depression Screen Depression Screen [facility] Start: 1985 Depression Screening Depression Scre ening [facility] Start: 1983 Lipid panel Lipids [facility] Start: 1979 Pneumococcal 0-64 ye ars Vaccine (1 - PCV) Pneumococcal 0-64 years Vaccine (1 - PCV) [facility] Start: 1978 COVID-19 Vaccine (1) COVID-19 Vaccin e (1) [facility] Start: 01-02-1974 COVID-19 Vaccine (#1) COVID-19 Vacci ne (#1) [facility] Start: 1973 HEPATITIS B (1 of 3 - 3-dose series) HEPATITIS B (1 of 3 - 3-dose series) [facility] Start: 1973 Hepatitis B vaccine (1 of 3 - 3-dose series) Hepatitis B vaccine (1 of 3 - 3-dose series) [facility] Start: 1973 Tobacco Counseling Tobacco Counselin g [facility] End: 03-06-2023 Blood glucose - POCT Blood glucose - POCT Point of Care Testing Routine One Time for 1 Occurrences starting 03/06/2023 until 03/06/2023 [facility] Comment on above: One Time for 1 Occur rences starting 03/06/2023 until 03/06/2023 End: 10-23-2021 Cytopathology procedure, preparation of smear, genital source PAP SMEAR Lab Routine Women's annual routine gynecological examination 1 Occurrences starting 10/23/2021 until 10/23/2021 [employer] Phone: Comment on above: 1 Occurrences starti ng 10/23/2021 until 10/23/2021 End: 03-05-2023 INITIATE PACU OXYGEN THERAPY PROTOCOL Initiate PACU Oxygen Therapy Protocol Respiratory Care Routine Continuous until discontinued starting 03/05/2023 [employer] Phone: Comment on above: Continuous until dis continued starting 03/05/2023 Oxygen therapy [[facility] Data Set] Initiate Oxygen Therapy Protocol Respiratory Care Routine As Needed until discontinued starting 03/05/2023 [employer] Phone: Comment on above: As Needed until disc ontinued starting 03/05/2023 End: 03-06-2023 , urine , urine Lab Routine Tomorrow AM for 1 Occurrences starting 03/06/2023 until 03/06/2023 [employer] Comment on above: Tomorrow AM for 1 Oc currences starting 03/06/2023 until 03/06/2023 End: 10-23-2021 Surgical Pathology Surgical Pathology Lab Routine Irregular menstrual bleeding 1 Occurrences starting 10/23/2021 until 10/23/2021 [employer] Phone: Comment on above: 1 Occurrences starti ng 10/23/2021 until 10/23/2021 End: 10-23-2021 SURGICAL PATHOLOGY REPORT SURGICAL PATHOLOGY REPORT Lab Routine Once for 1 Occurrences starting 10/23/2021 until 10/23/2021 [employer] Phone: Comment on above: Once for 1 Occurrenc es starting 10/23/2021 until 10/23/2021 [employer] Micheal thomas Payers Date Payer Category Payer Medicaid MEDICAID [facility] MEDICAID [id number] 2021-Present [phone] [address] [place] [address] Medicaid [id number] 2013 Medicare [id number] [id number] 1975 Unknown [id number] 2.16.840.1.875177.3.579.2.173 1975 Unknown [id number] 2.16.840.1.926975.3.579.2.647 1975 Unknown [id number] 2.16.840.1.390844.3.579.2.647 1975 Unknown [id number] 2.16.840.1.228401.3.579.2.647 1975 Unknown [id number] 2.16.840.1.574915.3.579.2.727 1975 Unknown [id number] 2.16.840.1.413614.3.579.2.727 1975 Unknown [id number] 2.16.840.1.323328.3.579.2.593 1975 Unknown [id number] 2.16.840.1.568626.3.579.2.593 1973 Unknown [id number] 2.16.840.1.403373.3.579.2.593 1975 Unknown [id number] 2.16.840.1.526103.3.579.2.593 1975 Unknown [id number] 2.16.840.1.541819.3.579.2.593 1975 Unknown [id number] 2.16.840.1.129653.3.579.2.593 1975 Unknown [id number] 2.16.840.1.000965.3.579.2.593 1973 Unknown [id number] 2.16.840.1.921238.3.579.2.593 1973 Unknown [id number] 2.16.840.1.210793.3.579.2.593 1973 Unknown [id number] 2.16.840.1.431322.3.579.2.593 1973 Unknown [id number] 2.16.840.1.929882.3.579.2.593 1973 Unknown [id number] 2.16.840.1.476215.3.579.2.593 1973 Unknown [id number] 2.16.840.1.353673.3.579.2.593 1973 Unknown [id number] 2.16.840.1.377049.3.579.2.593 1973 Unknown [id number] 2.16.840.1.391800.3.579.2.177 1973 Unknown [id number] 2.16.840.1.659889.3.579.2.177 1973 Unknown [id number] 2.16.840.1.347963.3.579.2.1259 1973 Unknown [id number] 2.16.840.1.169982.3.579.2.1259 1959 Medicaid [id number] 1.2.840.503468.1.13.239.2.7.3.6 [id number] 1959 Medicare [id number] [id number] [id number] 1959 Self-pay Unknown [id number] 2.16.840.1.980305.3.579.2.593 Social History Date Type Detail Facility Start: 10-23-2021 End: 03-31-2023 Tobacco smoking status TXIS Smokes tobacco daily [employer] Phone: History of tobacco use Cigarette Smoker [employer] Phone: Start: 08-02-2020 End: 10-23-2021 Cigarettes smoked current (pack per day) - Reported 1.5 [employer] Phone: Start: 10-23-2021 End: 03-31-2023 Tobacco use and exposure Smokeless tobacco non-user [employer] Phone: Start: 10-23-2021 End: 11-01-2021 Alcohol intake Ex-drinker (finding) [employer] Phone: Start: 1975 Sex Assigned At Not on file [facility]: Start: 02-19-2017 Tobacco smoking stat us TXIS Occasional tobacco smoker [facility] Start: 03-11-2017 End: 06-10-2022 Alcohol intake Current non-drinker of alcohol (finding) [facility] Start: 02-19-2017 End: 06-10-2022 Tobacco Comment 23 cigarettes to 2 pks per day [facility] History of tobacco use Passive smoker [facility] Start: 03-05-2023 End: 03-31-2023 Alcohol intake Current drinker of alcohol (finding) [employer] Start: 08-02-2020 End: 02-19-2023 Tobacco use panel [facility] Start: 02-19-2023 Alcohol Comment very rare- may be twice a year [facility] Childcare Unknown [facility] Start: 10-29-2021 Alcohol Comment rare [facility] Medical Equipment Procedure Code Equipment Code Equipment Origin al Text Equipment Identifier Dates Kit Catheter Rev Seg W Attch Sutureless 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 Please monitor hemodynamics carefully and prevent any major fluid shifts. Recent echocardiogram- 09/07/23 at [facility]- Normal LVSF, EF 55%, RV mildly dilated with normal systolic function. No acute concerns in light recent BNP normal on 09/07/23 Recent ECG Brittney Betts [facility] Available 7a-5pm via [employer] Chat Pager [phone] [facility] 09-03-2023 Note SUBJECTIVE: Chief complaint: Left leg [...] CHF (congestive heart failure), NYHA class I ([facility]) Chronic mental illness COPD (chronic obstructive pulmonary disease) ([facility]) Dyslipidemia Heart attack ([facility]) Hypertension Neuropathy Past Surgical History: Procedure Laterality [...] in the morning (more content not included)... [facility] 08-26-2023 Miscellaneous Notes RADHA CHAPMAN PT WANTS TO CANCEL APPT SCHEDULED FOR 08/27/2023. PHONED PT AND LM ON TO CONTACT OFFICE IF SHE DOES INDEED WANT TO CANCEL AND RESCHEDULE THIS APPT. documented in this encounter [facility] 08-26-2023 Telephone encounter Note RADHA CHAPMAN PT WANTS TO CANCEL APPT SCHEDULED FOR 08/27/2023. PHONED PT AND LM ON TO CONTACT OFFICE IF SHE DOES INDEED WANT TO CANCEL AND RESCHEDULE THIS APPT. [facility] 08-25-2023 Note [facility] II Continue GDMT- lasix 40 mg daily, and aldactone-- Diuretic therapy Monitor daily weights, I&O, fluid restriction 1.5-2L/day, renal function and electrolytes- [facility] 08-25-2023 Note Hypertension is well controlled Continue lisinopril, toprol, aldactone [facility] 08-25-2023 Note Recommended smoking cessation, she is starting chantix for smoking cessation as prescribed from DR Phan [facility] 08-25-2023 Note Continue lipitor 10 mg daily [facility] 08-25-2023 Note Order echocardiogram to assess cardiac function, RV size and function, Rt sided pressures, and valvular function [facility] 08-25-2023 Note New patient here to establish care. She was seen by [facility] cardiology in Mar 2023. States she has hx of LA years ago in [place], but denies stents. Has hx of CHF, with last echo being done in Jul 2021 at [facility]. C/o SOB and fatigue. Has had [...] All other systems reviewed and are negative. [facility] 08-25-2023 Note [facility] CARDIOLOGY PROGR ESS NOTE HPI: Radha Mendoza is a 48 y.o. female here as new pt to establish care. HPI 47-year-old female with history of Chronic heart failure with preserved ejection fraction, morbid obesity, hypertension, dyslipidemia, history of chronic tobacco abuse, angiographically normal coronary arteries. New patient here to establish care. She was seen by [facility] cardiology in Mar 2023. States she has hx of LA years ago in [place], but denies stents. Has hx of CHF, with last echo being done in Jul 2021 at [facility]. C/o SOB and fatigue. Has had [...] Past Medical History: Diagnosis Date Angina pectoris ([facility]) Bipolar disorder, unspecified ([facility]) Cardiomyopathy CHF (congestive heart failure) ([facility]) Chronic back pain COPD (chronic obstructive pulmonary disease) ([facility]) Edema Hypertension Major depressive disorder Migraine headache Morbid obesity ([facility]) Nausea & vomiting Nicotine dependence, cigarettes, uncomplicated [...] normal. Mouth/Throat: Mouth (more content not included)... [facility] 07-30-2023 Note Patient ID: Radha Mendoza is a 48 y.o. female. Therapeutic injection carpal tunnel Date/Time: 07/30/2023 2:38 PM Performed by: Medina Montes MD Authorized by: Medina Montes MD Consent: Consent obtained: Verbal Consent given by: Patient Risks, benefits, and alternatives were discussed: yes Risks discussed: Bleeding and incomplete drainage Alternatives discussed: No treatment Deport protocol: Procedure explained and questions answered to [...] Procedure completion: Tolerated well, no immediate complications [facility] 07-30-2023 Note Attestation signed by Medina Montes [...] COPD/CESARIO on CPAP, tobacco dependence, history of LA, CHF, PTSD, bipolar, anxiety and morbid obesity. [...] (25 mg) by mouth once weekly. Methotrexate, mcc, current use - folic acid (Folvite) 1 [...] Morbid obesity with BMI of 50.0-59.9, adult (CMS/HCC) Other orders - Injection tendon or ligament: L carpal tunnel 48 y.o. 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 Seronegative rheumatoid arthritis Long-term use of methotrexate Medication regimen: Methotrexate 25 mg (10 tabs of 2.5 mg) weekly, folate supplementation. *Worsened disease with DAS28 (more content not included)... [facility] 07-27-2023 Note Attestation signed by Medina Montes [...] migraine headaches, COPD/CESARIO on CPAP, history of LA, CHF, PTSD, bipolar, anxiety and morbid obesity [...] migraine headaches, COPD/CESARIO on CPAP, history of LA, CHF, PTSD, bipolar, anxiety and morbid obesity [...] past 36 hour(s)). No follow-ups on file. [facility] 06-01-2023 Evaluation note Encounter Date Diagnosis Assessment [...] your primary care provider in 3-5 days. [employer] Other 11-06-2023 Note Attestation signed by Medina [...] migraine headaches, COPD/CESARIO on CPAP, history of LA, CHF, PTSD, bipolar, anxiety and morbid obesity [...] migraine headaches, COPD/CESARIO on CPAP, history of LA, CHF, PTSD, bipolar, anxiety and morbid obesity [...] Garcia MD Rheumatology Fellow (more content not included)...[facility] Hospital Discharge instructions* Discharge Instructions* Nichelle Cunha [...] saturates the bandage [facility] Attestation signed by Medina Montes [...] migraine headaches, COPD/CESARIO on CPAP, history of LA, CHF, PTSD, bipolar, anxiety and morbid obesity [...] migraine headaches, COPD/CESARIO on CPAP, history of LA, CHF, PTSD, bipolar, anxiety and morbid obesity [...] Patient was seen wi (more content not included)...[facility]05-08-2023 Note Attestation signed by Medina Montes MD [...] migraine headaches, COPD/CESARIO on CPAP, history of LA, CHF, PTSD, bipolar, anxiety and morbid obesity [...] migraine headaches, COPD/CESARIO on CPAP, history of LA, CHF, PTSD, bipolar, anxiety and morbid obesity [...] RTC in 2 allie (more content not included)...[facility] 09-18-2022 NoteOrthopedic Surgery Subjective Chief complaint: Chief [...] CHF (congestive heart failure), NYHA class I ([facility]) Chronic mental illness COPD (chronic obstructive pulmonary disease) ([facility]) Heart attack ([facility]) Neuropathy Objective General examination: Patient is Aox3 [...] of the aforementioned history prepared by the [place] practice provider, and I personally performed the clinical examination of the patient. I discussed the treatment plan with the patient. Peterson Bhatia MD[facility]03-[facility]-2023 Note Attestation signed by Cristina Avalos MD [...] Mendoza is a 47 y.o. female. Procedures Deport Protocol Documentation for Invasive Procedures List all [...] inflammation. Left Median nerve enlarged 13 mm [facility]03-24-2023 Note Attestation signed by Cristina Avalos MD [...] migraine headaches, COPD/CESARIO on CPAP, history of LA, CHF, PTSD, bipolar, anxiety and morbid obesity [...] migraine headaches, COPD/CESARIO on CPAP, history of LA, CHF, PTSD, bipolar, anxiety and morbid obesity referred for evaluation of her chronically elevated inflammatory markers. Seronegative rheumatoid arthritis - polyarthragias of the knees, wrists, hands, hip with 30 minutes of AM pain/stiffness and associated synovitis - prednisone trial aborted due to mood changes - in office [facility] ultrasound showed bilateral mild to moderate synovitis of the wrists - (more content not included)...[facility]02-22-2023 NotePROCEDURE: XR HIPS MARTHA 5V W PELVIS HISTORY: Joint pain COMPARISON: None. FINDINGS: BONES:No fracture, acute abnormality, or significant arthropathy. SOFT TISSUES:No visible soft tissue swelling. EFFUSION:None visible. OTHER: Mechanical fusion and degenerative changes of lower lumbar spine. IMPRESSION: 1. No acute bone abnormality or significant degenerative changes of the hip joints. Electronically authenticated by: GILL MORENO Date: 2022-08-13 10:48[facility]12-07-2022 Miscellaneous Notes* Telephone Encounter - Bandar Romanoheladio - 05/28/2022 2:21 PM EST Pt is being referred by [facility] dx Breast Ca. Per Karina Antunez schedule new pt consult once we have a bxdate. They will call us when it is scheduled. [facility] History of Present illness Narrative* Katy Guo RN - 01/02/2022 9:00 AM EDT Patient did not show for appointment at 9am. Left message to call to reschedule. Dr. Arenas office notified. 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 Relationship Specialty Start Date End Date Wally Ghosh MD [address] [place] [address] PCP - General 11/06/21 Bridge Maintenance Worker Relationship Specialty Start Date End [facility] [address] [facility] [address] [place] [address] PCP - General Family Medicine 02/19/17 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 Maintenance Worker Relationship Specialty Start Date End Date [facility] [address] [place] [address] PCP - General Family Medicine 02/19/17 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 Maintenance Worker Relationship Specialty Start Date End Date Donnie Kaminski APRN - LICENSED ESTHETICIAN [address] [place], [place] [id number] PCP - General Nurse Practitioner 02/19/23 Bridge Maintenance Worker Relationship Specialty Start Date End Date Wally Ghosh MD [address] [place] [address] PCP - General Internal Medicine 08/08/21 INFORMATION SOURCE (unrecogn ized section and content) DATE CREATED AUTHOR 01/08/2022 [facility] DATE CREATED AUTHOR AUTHOR'S ORGANIZ ATION 03/03/2022 [facility] DATE CREATED AUTHOR AUTHOR'S ORGANIZ ATION 05/02/2022 [facility] DATE CREATED AUTHOR AUTHOR'S ORGANIZ ATION 05/31/2022 [facility] DATE CREATED AUTHOR AUTHOR'S ORGANIZ ATION 10/29/2022 [facility] DATE CREATED AUTHOR AUTHOR'S ORGANIZ ATION 03/07/2023 [facility] DATE CREATED AUTHOR AUTHOR'S ORGANIZ ATION 07/15/2023 [facility] DATE CREATED AUTHOR AUTHOR'S ORGANIZ ATION 08/25/2023 [facility] DATE CREATED AUTHOR AUTHOR'S ORGANIZ ATION 09/09/2023 [facility] DATE CREATED AUTHOR AUTHOR'S ORGANIZ ATION 09/10/2023 [facility] Source Comments (unrecognize d section and content) In the event this informatio n is protected by the Federal Confidentiality of Alcohol and Drug Abuse Patient Records regulations: The Federal rules restrict any use of the information to criminally investigate or prosecute any alcohol or drug abuse patient.[facility] CenterIn the event this information is protected by the Federal Confidentiality of Alcohol and Drug Abuse Patient Records regulations: The Federal rules restrict any use of the information to criminally investigate or prosecute any alcohol or drug abuse patient.[facility] Reason for Visit (unrecogniz ed section and content) Reason Comments Appointment Specialty Diagnoses / Procedures Referred By Contac t Referred To Contact Diagnoses Post laminectomy syndrome Post laminectomy syndrome [M96.1] Procedures SC IMPLTJ/RPLCMT ITHCL/EDRL DRUG NFS PRGRBL PUMP INTERTHECAL PAIN PUMP REPLACEMENT Mohit Dejesus MD [address] [place] [address] [facility] [address] [place] [address] Referral ID Status Reason Start Date Expiration Date Visits Re quested Visits Authorized [id number] 1 1 Scheduled Active and Recently Administ [...] 1501 (New Bag - Prov ider: Gunjan East APRN - [employer] - Comment: given over 1 hr) Continuous [...] Pre-op (day of surgery) bupivacaine-EPINEPHrine (MARCAINE-w/EPINEPHRINE) 0.5% -1: 30 mL, lidocaine 1 % 40 mL [...] BE BASED ON THE PRIMARY CLINICAL RECORDS. [facility]. provides no warranty or guarantee of the accuracy or completeness of information in this document.
--- NOTE | 2023-09-14 09:00 | ED.GENADUL1 ---
HPI - General Adult General Chief complaint: Extremity Problem, Nontraumatic Stated complaint: R LEG PAIN Time Seen by Provider: 09/14/23 08:38 Source: patient Mode of arrival: walk-in Limitations: no limitations History of Present Illness HPI narrative: 48-year-old female presents for pain redness and swelling to her left lower leg. She has had this for apparently several weeks and has been on Keflex but it is getting worse. She has had a small amount of drainage. She has not had an ultrasound. No fever or vomiting. She has had cellulitis before. Related Data Home Medications ?Medication ?Instructions ?Recorded ?Confirmed albuterol sulfate 90 mcg/actuation 2 inh inhalation Q4H PRN shortness 04/28/23 09/07/23 aerosol inhaler of breath or wheezing atorvastatin 10 mg tablet 10 mg PO DAILY 04/28/23 09/07/23 buspirone 10 mg tablet 10 mg PO DAILY 04/28/23 09/07/23 cariprazine 4.5 mg capsule 4.5 mg PO DAILY 04/28/23 09/07/23 (Vraylar) duloxetine 60 mg capsule,delayed 60 mg PO DAILY 04/28/23 09/07/23 release fluticasone fur. 100 mcg-umeclid 1 inh inhalation Q24H 04/28/23 09/07/23 62.5 mcg-vilant 25 mcg inhalat.powder (Trelegy Ellipta) folic acid 1 mg tablet 1 mg PO DAILY 04/28/23 09/07/23 furosemide 80 mg tablet 40 mg PO DAILY 04/28/23 09/07/23 hydroxyzine pamoate 50 mg capsule 50 mg PO Q8H PRN anxiety 04/28/23 09/07/23 lamotrigine 100 mg tablet 100 mg PO DAILY 04/28/23 09/07/23 lisinopril 20 mg tablet 20 mg PO DAILY 04/28/23 09/07/23 methotrexate sodium 2.5 mg tablet 25 mg PO .weekly 04/28/23 09/07/23 metoprolol succinate 25 mg 25 mg PO DAILY 04/28/23 09/07/23 tablet,extended release 24 hr omeprazole 20 mg capsule,delayed 20 mg PO DAILY 04/28/23 09/07/23 release prazosin 1 mg capsule 1 mg PO DAILY 04/28/23 09/07/23 spironolactone 25 mg tablet 25 mg PO DAILY 04/28/23 09/07/23 tizanidine 4 mg tablet 4 mg PO DAILY PRN muscle spasticity 04/28/23 09/07/23 trazodone 150 mg tablet 150 mg PO DAILY 04/28/23 09/07/23 Previous Rx's ?Medication ?Instructions ?Recorded cephalexin 500 mg capsule 500 mg PO QID 7 days #28 caps 09/07/23 Allergies Allergy/AdvReac Type Severity Reaction Status Date / Time doxycycline Allergy Intermediate Hives Verified 09/14/23 08:42 oxytocin [From Pitocin] Allergy Intermediate Anaphylaxis Verified 09/14/23 08:42 sumatriptan [From Imitrex] Allergy Intermediate Flushing Verified 09/14/23 08:42 dulaglutide [From Trulicity] Allergy Vomiting Verified 09/14/23 08:42 NSAIDS (Non-Steroidal AdvReac renal Verified 09/14/23 08:42 Anti-Inflamma insufficiency Review of Systems ROS Narrative A ten point review of systems is negative except as noted above. [facility] Medical History (Updated 09/14/23 @ 10:36 by Travis Roberto MD) Rheumatoid arthritis ?M06.9 - Rheumatoid arthritis, unspecified (ICD-10) Arthritis ?M19.90 - Unspecified osteoarthritis, unspecified site (ICD-10) Back pain ?M54.9 - Dorsalgia, unspecified (ICD-10) Insomnia ?G47.00 - Insomnia, unspecified (ICD-10) Panic attacks ?F41.0 - Panic disorder [episodic paroxysmal anxiety] (ICD-10) PTSD (post-traumatic stress disorder) ?F43.10 - Post-traumatic stress disorder, unspecified (ICD-10) Depression ?F32.A - Depression, unspecified (ICD-10) Anxiety ?F41.9 - Anxiety disorder, unspecified (ICD-10) Sleep apnea ?G47.30 - Sleep apnea, unspecified (ICD-10) Pneumonia ?J18.9 - Pneumonia, unspecified organism (ICD-10) Bronchitis ?J40 - Bronchitis, not specified as acute or chronic (ICD-10) Asthma ?J45.909 - Unspecified asthma, uncomplicated (ICD-10) Chronic obstructive pulmonary disease ?J44.9 - Chronic obstructive pulmonary disease, unspecified (ICD-10) Pelvic pain ?R10.2 - Pelvic and perineal pain (ICD-10) Abnormal uterine bleeding ?N93.9 - Abnormal uterine and vaginal bleeding, unspecified (ICD-10) Menorrhagia ?N92.0 - Excessive and frequent menstruation with regular cycle (ICD-10) GERD (gastroesophageal reflux disease) ?K21.9 - Gastro-esophageal reflux disease without esophagitis (ICD-10) Left ventricular hypertrophy ?I51.7 - Cardiomegaly (ICD-10) High cholesterol ?E78.00 - Pure hypercholesterolemia, unspecified (ICD-10) Extremity edema ?R60.0 - Localized edema (ICD-10) Congestive heart failure ?I50.9 - Heart failure, unspecified (ICD-10) Myocardial infarction (2019) ?I21.9 - Acute myocardial infarction, unspecified (ICD-10) Hypertension ?I10 - Essential (primary) hypertension (ICD-10) Prediabetes ?R73.03 - Prediabetes (ICD-10) Surgical History (Updated 09/01/23 @ 15:24 by Dian Freeman RN) History of endometrial ablation ?Z98.890 - Other specified postprocedural states (ICD-10) History of cardiac catheterization ?Z98.890 - Other specified postprocedural states (ICD-10) History of tonsillectomy ?Z90.89 - Acquired absence of other organs (ICD-10) History of spinal surgery ?Z98.890 - Other specified postprocedural states (ICD-10) History of dilation and curettage ?Z98.890 - Other specified postprocedural states (ICD-10) History of dilation and curettage ?Z98.890 - Other specified postprocedural states (ICD-10) History of section ?Z98.891 - History of uterine scar from previous surgery (ICD-10) History of section ?Z98.891 - History of uterine scar from previous surgery (ICD-10) History of hernia repair ?Z98.890 - Other specified postprocedural states (ICD-10) ?Z87.19 - Personal history of other diseases of the digestive system (ICD-10) History of spinal surgery ?Z98.890 - Other specified postprocedural states (ICD-10) History of arthroplasty of knee ?Z96.659 - Presence of unspecified artificial knee joint (ICD-10) Family History (Updated 09/02/23 @ 12:52 by Dina Freeman RN) Other Family history of DVT Family history of breast cancer Family history of diabetes mellitus Family history of heart disease Family history of hypertension Family history of myocardial infarction Family history of skin cancer Family history of uterine cancer Social History (Updated 09/02/23 @ 12:53 by Dina Freeman RN) Within the past year, how often did you have a drink containing alcohol: never Score interpretation: A score less than 3 is consistent with normal alcohol consumption. Smoking status: Current every day smoker What tobacco products do you use: cigarettes Cigarettes per day: 30 Years smoked: 30 Smoking pack-years: 45.00 Non-prescribed substance use: cannabis (any form) Non-prescribed substance use details: every night Previous occupational history: [employer] Highest level of school completed/degree received: high school graduate Exam Narrative Exam Narrative: Nurses note and vital signs reviewed and patient is not hypoxic. General: The patient appears well and in no apparent distress. Patient is resting comfortably on cart. Skin: Warm, dry, no pallor noted. There is no rash noted. Head: Normocephalic, atraumatic Eye: Normal conjunctiva, no drainage Ears, Nose, Mouth, and Throat: oral mucosa is moist. Nares patent. Cardiovascular: Regular Rate and Rhythm Respiratory: Patient is in no distress, no accessory muscle use, lungs are clear to auscultation, no wheezing, rales or rhonchi Back: non-tender GI: Soft and nontender Musculoskeletal: The right lower leg is erythematous and swollen from just below the knee down to the ankle. There is a small opening with a small amount of drainage. Neurological: A&O, normal speech Psychiatric: Cooperative Constitutional Vital Signs, click to edit/add: Last Vital Signs Temp 97.8 F 09/14/23 08:38 Pulse 67 09/14/23 08:47 Resp 18 09/14/23 08:38 BP 107/73 09/14/23 08:38 Pulse Ox 100 09/14/23 08:38 O2 Del Method Room Air 09/14/23 08:38 Course Vital Signs Vital signs: Vital Signs Temperature 97.8 F 09/14/23 08:38 Pulse Rate 67 09/14/23 08:38 Respiratory Rate 18 09/14/23 08:38 Blood Pressure 107/73 09/14/23 08:38 Pulse Oximetry 100 09/14/23 08:38 Oxygen Delivery Method Room Air 09/14/23 08:38 Temperature 97.8 F 09/14/23 08:38 Pulse Rate 67 09/14/23 08:47 Respiratory Rate 18 09/14/23 08:38 Blood Pressure 107/73 09/14/23 08:38 Pulse Oximetry 100 09/14/23 08:38 Oxygen Delivery Method Room Air 09/14/23 08:38 Medical Decision Making MDM Narrative Medical decision making narrative: She has failed outpatient therapy and is given IV vancomycin. She was also found to have posterior tibial vein DVT. Findings are discussed with the patient and she is being admitted. Differential Diagnosis Differential Diagnosis: Cellulitis, DVT Lab Data Lab results reviewed: Yes I reviewed the patient's lab results Labs: Lab Results 09/14/23 Range/Units 09:15 WBC 8.9 (4.0-11.0) 10^3/uL RBC 4.95 (4.20-5.40) 10^6/uL Hgb 14.0 (12.0-16.0) g/dL Hct 43.3 (36.0-48.0) % MCV 87.5 (81.0-99.0) fL MCH 28.3 (26.7-34.0) pg MCHC 32.3 (29.9-35.2) g/dL RDW 16.1 H (11.0-15.0) % Plt Count 294 (150-450) 10^3/uL MPV 10.2 (9.5-13.5) fL Neut % (Auto) 66.5 (43.0-75.0) % Lymph % (Auto) 25.2 (20.5-60.0) % Hardee % (Auto) 5.8 (1.7-12.0) % Eos % (Auto) 1.6 (0.9-7.0) % Baso % (Auto) 0.7 (0.2-2.0) % Neut # (Auto) 5.9 (1.4-6.5) 10^3/uL Lymph # (Auto) 2.2 (1.2-3.8) 10^3/uL Hardee # (Auto) 0.5 (0.3-0.8) 10^3/uL Eos # (Auto) 0.1 (0.0-0.7) 10^3/uL Baso # (Auto) 0.1 (0.0-0.1) 10^3/uL Abs Immat Gran (auto) 0.02 (0.00-0.03) 10^3/uL Imm/Tot Granulo (auto) 0.2 (0.0-0.5) % Sodium 139 (136-145) mmol/L Potassium 4.1 (3.5-5.1) mmol/L Chloride 98 (98-107) mmol/L Carbon Dioxide 30.3 (21.0-32.0) mmol/L Anion Gap 14.8 BUN 12.0 (7.0-18.0) mg/dL Creatinine 0.94 (0.55-1.02) mg/dL Est GFR ( Amer) >60 (>=60) Est GFR (Non-Af Amer) >60 (>=60) BUN/Creatinine Ratio 12.8 Glucose 112 H (74-106) mg/dL Calcium 9.4 (8.5-10.1) mg/dL Imaging Data Leg ultrasound: Radiologist's impression: ITS Impressions Venous Doppler Study 09/14/23 08:54 IMPRESSION: Occlusive deep vein thrombus identified in the mid to distal posterior tibial vein Electronically authenticated by: AGUSTIN DIMAS Date: 09/14/2023 10:02 Discharge Plan Discharge Stand Alone Forms: Portal Instructions Chief Complaint: Extremity Problem, Nontraumatic Clinical Impression: Cellulitis of right lower leg, Deep vein thrombosis of lower extremity Patient Disposition: Admitted As Inpatient Time of Disposition Decision: 10:36 Condition: Good Prescriptions / Home Meds: No Action cephalexin 500 mg capsule 500 mg PO QID 7 Days Qty: 28 0RF albuterol sulfate 90 mcg/actuation HFA aerosol inhaler 2 inh INHALATION Q4H PRN (Reason: shortness of breath or wheezing) atorvastatin 10 mg tablet 10 mg PO DAILY buspirone 10 mg tablet 10 mg PO DAILY Vraylar 4.5 mg capsule 4.5 mg PO DAILY duloxetine 60 mg capsule,delayed release(DR/EC) 60 mg PO DAILY Trelegy Ellipta 100-62.5-25 mcg blister with device 1 inh INHALATION Q24H folic acid 1 mg tablet 1 mg PO DAILY furosemide 80 mg tablet 40 mg PO DAILY hydroxyzine pamoate 50 mg capsule 50 mg PO Q8H PRN (Reason: anxiety) lamotrigine 100 mg tablet 100 mg PO DAILY lisinopril 20 mg tablet 20 mg PO DAILY methotrexate sodium 2.5 mg tablet 25 mg PO .weekly metoprolol succinate 25 mg tablet extended release 24 hr 25 mg PO DAILY omeprazole 20 mg capsule,delayed release(DR/EC) 20 mg PO DAILY prazosin 1 mg capsule 1 mg PO DAILY spironolactone 25 mg tablet 25 mg PO DAILY tizanidine 4 mg tablet 4 mg PO DAILY PRN (Reason: muscle spasticity) trazodone 150 mg tablet 150 mg PO DAILY Print Language: British Referrals: ABRAM GALDAMEZ APRN [Primary Care Provider] - 1 week
[2023-09-14 09:32] LABS: Basophils Absolute Auto 0.1 10^3/uL (0.0-0.1); Basophils Percent Auto 0.7 % (0.2-2.0); Eosinophils Absolute Auto 0.1 10^3/uL (0.0-0.7); Eosinophils Percent Auto 1.6 % (0.9-7.0); Hematocrit 43.3 % (36.0-48.0); Immature Granulocytes Abs Auto 0.02 10^3/uL (0.00-0.03); Immature Granulocytes Pct Auto 0.2 % (0.0-0.5); Lymphocytes Absolute Auto 2.2 10^3/uL (1.2-3.8); Lymphocytes Percent Auto 25.2 % (20.5-60.0); Mean Corpuscular HGB Conc 32.3 g/dL (29.9-35.2); Mean Corpuscular Hemoglobin 28.3 pg (26.7-34.0); Mean Corpuscular Volume 87.5 fL (81.0-99.0); Mean Platelet Volume 10.2 fL (9.5-13.5); Monocytes Absolute Auto 0.5 10^3/uL (0.3-0.8); Monocytes Percent Auto 5.8 % (1.7-12.0); Neutrophils Absolute Auto 5.9 10^3/uL (1.4-6.5); Neutrophils Percent Auto 66.5 % (43.0-75.0); Platelet Count 294 10^3/uL (150-450); Red Blood Count 4.95 10^6/uL (4.20-5.40); Red Cell Distribution Width 16.1 % (11.0-15.0); White Blood Count 8.9 10^3/uL (4.0-11.0)
[2023-09-14 09:39] LABS: Anion Gap 14.8; BUN Creatinine Ratio 12.8; Calcium 9.4 mg/dL (8.5-10.1); Carbon Dioxide 30.3 mmol/L (21.0-32.0); Chloride 98 mmol/L (98-107); Estimated GFR (African America >60 (>=60); Estimated GFR (Non-African Ame >60 (>=60); Glucose 112 mg/dL (74-106); Potassium 4.1 mmol/L (3.5-5.1); Sodium 139 mmol/L (136-145)
[2023-09-14] MEDS: VANCOMYCIN HCL 2,000 MG in 0.9 % SODIUM CHLORIDE 500 ML 250 MG IV (10:11)
[2023-09-14 11:01] LABS: Lactate/Lactic Acid 2.2 mmol/L (0.4-2.0)
[2023-09-14 11:09] LABS: PROCALCITONIN <0.05 ng/mL (0.00-0.50)
[2023-09-14 11:39] LABS: INR 0.93; Prothrombin Time 9.9 sec (9.0-11.6)
[2023-09-14 12:02] LABS: Partial Thromboplastin Time 27.4 sec (22.3-36.2)
--- NOTE | 2023-09-14 12:13 | PM.HP ---
HPI H&P: HPI History of Present Illness Chief complaint: R LEG PAIN Narrative: patient is a 48-year-old female with past medical history of hypertension, bipolar disorder, asthma, hyperlipidemia who presented to the Emergency Room today with increased swelling, pain, redness to her right lower extremity. Patient reports that she has been treated for several weeks for her right lower extremity pain and erythema. She was placed on Keflex without any improvement. She denies any fevers or chills. Today in the emergency department she underwent a ultrasound which showed an acute deep vein thrombosis of the mid and distal tibial vein. She denies ever having history of any clots in the past she denies any family history of blood clots. She does not she took a long car ride to [place] recently. She denies any cancer history. She is a smoker and smokes about a pack and a half a day. At the time of admission she denies any chest pain and says that her right lower extremity is tender to touch but not unbearable. No other issues or complaints. Opioid HPI Opioid Management Most Recent Opioid Data: Last Pain Assessment 09/14/23 13:52 Last ED Pain Assessment 12/11/22 12:35 Last ORT Total Score 0 09/14/23 11:23 Last ORT Risk Category Low Risk 09/14/23 11:23 Review of Systems ROS Narrative ROS: a complete review of systems were reviewed with patient and are positive as below or listed in History of Chief Complaint. General: no fever, chills, night sweats Head: no headache, trauma, visual changes, nausea or vomiting Skin:rashes right lower ext, some clear drainage Eyes: no blurriness of vision Ears: no reported hearing loss, vertigo, earache, or tinnitus Throat: no sore throat, hoarseness, swelling of neck, or tongue pain Heart: no chest pain Lungs: no shortness of breath or cough GI: no diarrhea or vomiting/nausea Urinary: no urinary urgency, frequency or pain Neuro: no numbness or tingling HEM: no bleeding issues or bruising ENDO: no thyroid problems Psych: no anxiety or depression [facility] Medical History (Updated 09/14/23 @ 14:57 by Jennifer Del Real DO) Rheumatoid arthritis ?M06.9 - Rheumatoid arthritis, unspecified (ICD-10) Arthritis ?M19.90 - Unspecified osteoarthritis, unspecified site (ICD-10) Back pain ?M54.9 - Dorsalgia, unspecified (ICD-10) Insomnia ?G47.00 - Insomnia, unspecified (ICD-10) Panic attacks ?F41.0 - Panic disorder [episodic paroxysmal anxiety] (ICD-10) PTSD (post-traumatic stress disorder) ?F43.10 - Post-traumatic stress disorder, unspecified (ICD-10) Depression ?F32.A - Depression, unspecified (ICD-10) Anxiety ?F41.9 - Anxiety disorder, unspecified (ICD-10) Sleep apnea ?G47.30 - Sleep apnea, unspecified (ICD-10) Pneumonia ?J18.9 - Pneumonia, unspecified organism (ICD-10) Bronchitis ?J40 - Bronchitis, not specified as acute or chronic (ICD-10) Asthma ?J45.909 - Unspecified asthma, uncomplicated (ICD-10) Chronic obstructive pulmonary disease ?J44.9 - Chronic obstructive pulmonary disease, unspecified (ICD-10) Pelvic pain ?R10.2 - Pelvic and perineal pain (ICD-10) Abnormal uterine bleeding ?N93.9 - Abnormal uterine and vaginal bleeding, unspecified (ICD-10) Menorrhagia ?N92.0 - Excessive and frequent menstruation with regular cycle (ICD-10) GERD (gastroesophageal reflux disease) ?K21.9 - Gastro-esophageal reflux disease without esophagitis (ICD-10) Left ventricular hypertrophy ?I51.7 - Cardiomegaly (ICD-10) High cholesterol ?E78.00 - Pure hypercholesterolemia, unspecified (ICD-10) Extremity edema ?R60.0 - Localized edema (ICD-10) Congestive heart failure ?I50.9 - Heart failure, unspecified (ICD-10) Myocardial infarction (2019) ?I21.9 - Acute myocardial infarction, unspecified (ICD-10) Hypertension ?I10 - Essential (primary) hypertension (ICD-10) Prediabetes ?R73.03 - Prediabetes (ICD-10) Surgical History History of endometrial ablation ?Z98.890 - Other specified postprocedural states (ICD-10) History of cardiac catheterization ?Z98.890 - Other specified postprocedural states (ICD-10) History of tonsillectomy ?Z90.89 - Acquired absence of other organs (ICD-10) History of spinal surgery ?Z98.890 - Other specified postprocedural states (ICD-10) History of dilation and curettage ?Z98.890 - Other specified postprocedural states (ICD-10) History of dilation and curettage ?Z98.890 - Other specified postprocedural states (ICD-10) History of section ?Z98.891 - History of uterine scar from previous surgery (ICD-10) History of section ?Z98.891 - History of uterine scar from previous surgery (ICD-10) History of hernia repair ?Z98.890 - Other specified postprocedural states (ICD-10) ?Z87.19 - Personal history of other diseases of the digestive system (ICD-10) History of spinal surgery ?Z98.890 - Other specified postprocedural states (ICD-10) History of arthroplasty of knee ?Z96.659 - Presence of unspecified artificial knee joint (ICD-10) Family History Mother Family history of CHF (congestive heart failure) Family history of DVT Family history of breast cancer Family history of cancer Family history of heart disease Family history of hypertension Family history of myocardial infarction Family history of skin cancer Family history of uterine cancer Grandmother Family history of COPD (chronic obstructive pulmonary disease) Father Family history of diabetes mellitus Family history of hypertension Social History Within the past year, how often did you have a drink containing alcohol: never Within the past year, how many standard drinks containing alcohol did you have on a typical day: 1 or 2 Within the past year, how often did you have six or more drinks on one occasion: never Total score: 0 Score interpretation: A score less than 3 is consistent with normal alcohol consumption. Smoking status: Current every day smoker What tobacco products do you use: cigarettes Cigarettes per day: 30 Years smoked: 30 Smoking pack-years: 45.00 Non-prescribed substance use: cannabis (any form) Non-prescribed substance use details: every night Previous occupational history: [employer] Highest level of school completed/degree received: high school graduate Are you now , , , , never or living with a partner: In a typical week, how many times do you talk on the telephone with family, friends, or neighbors: 3 or more times per week How often do you get together with friends or relatives: once per week How often do you attend latter day or shinto services: never Do you belong to any clubs or organizations such as latter day groups unions, [employer] or athletic groups, or school groups: no Total score: 1 Score interpretation: A score of less than or equal to 1 indicates the most socially isolated. Little interest or pleasure in doing things: not at all Feeling down, depressed, or hopeless: not at all Feel stressed/tense/nervous/anxious/difficulty sleeping: not at all Gender Identity: female Meds Home Medications and Allergies Home Medications ?Medication ?Instructions ?Recorded ?Confirmed ?Type albuterol sulfate 90 mcg/actuation 2 inh inhalation Q4H PRN shortness 04/28/23 09/14/23 History aerosol inhaler of breath or wheezing atorvastatin 10 mg tablet 10 mg PO DAILY 04/28/23 09/14/23 History buspirone 10 mg tablet 10 mg PO DAILY 04/28/23 09/14/23 History cariprazine 4.5 mg capsule 4.5 mg PO DAILY 04/28/23 09/14/23 History (Vraylar) duloxetine 60 mg capsule,delayed 60 mg PO DAILY 04/28/23 09/14/23 History release fluticasone fur. 100 mcg-umeclid 1 inh inhalation Q24H 04/28/23 09/14/23 History 62.5 mcg-vilant 25 mcg inhalat.powder (Trelegy Ellipta) folic acid 1 mg tablet 1 mg PO DAILY 04/28/23 09/14/23 History hydroxyzine pamoate 50 mg capsule 50 mg PO Q8H PRN anxiety 04/28/23 09/14/23 History lamotrigine 100 mg tablet 100 mg PO DAILY 04/28/23 09/14/23 History lisinopril 20 mg tablet 20 mg PO DAILY 04/28/23 09/14/23 History methotrexate sodium 2.5 mg tablet 25 mg PO .weekly 04/28/23 09/14/23 History metoprolol succinate 25 mg 25 mg PO DAILY 04/28/23 09/14/23 History tablet,extended release 24 hr omeprazole 20 mg capsule,delayed 20 mg PO DAILY 04/28/23 09/14/23 History release prazosin 1 mg capsule 1 mg PO DAILY 04/28/23 09/14/23 History spironolactone 25 mg tablet 25 mg PO DAILY 04/28/23 09/14/23 History tizanidine 4 mg tablet 4 mg PO DAILY PRN muscle spasticity 04/28/23 09/14/23 History trazodone 150 mg tablet 150 mg PO DAILY 04/28/23 09/14/23 History cephalexin 500 mg capsule 500 mg PO QID 7 days #28 caps 09/07/23 09/14/23 Rx furosemide 40 mg tablet 40 mg PO BID 09/14/23 09/14/23 History Allergies Allergy/AdvReac Type Severity Reaction Status Date / Time doxycycline Allergy Intermediate Hives Verified 09/14/23 08:42 oxytocin [From Pitocin] Allergy Intermediate Anaphylaxis Verified 09/14/23 08:42 sumatriptan [From Imitrex] Allergy Intermediate Flushing Verified 09/14/23 08:42 dulaglutide [From Trulicity] Allergy Vomiting Verified 09/14/23 08:42 NSAIDS (Non-Steroidal AdvReac renal Verified 09/14/23 08:42 Anti-Inflamma insufficiency Exam Narrative Exam Narrative: General: Patient is alert, and oriented to person, place and time with normal affect, proper hygiene Skin: right lower ext erythema from above the ankle to just below the knee, erythema does not including knee or ankle joint; some blister formation with clear drainage; painful to touch Head: atraumatic, acephalic Eyes: PERRLA, no nystagmus present, conjunctiva clear, no scleral icterus Ears: normal gross auditory acuity Heart: Normal rate and rhythm, no murmurs/rubs/gallops Lungs: no audible wheezes, crackles and normal breath sounds all lung medeiros Abdomen: Normal audible bowel sounds, no distension, No palpable masses, no organomegaly, no rebound/guarding/ or rigidity Neuro: CN II-X grossly intact Constitutional Vital Signs, click to edit/add: Last Vital Signs Temp 98.4 F 09/14/23 11:23 Pulse 65 09/14/23 11:23 Resp 18 09/14/23 11:23 BP 143/85 H 09/14/23 11:23 Pulse Ox 98 09/14/23 11:23 O2 Del Method Room Air 09/14/23 11:23 Results Labs Labs: Short CBC 09/14/23 Range/Units 09:15 WBC 8.9 (4.0-11.0) 10^3/uL Hgb 14.0 (12.0-16.0) g/dL Hct 43.3 (36.0-48.0) % Plt Count 294 (150-450) 10^3/uL BMP 09/14/23 09:15 Sodium 139 Potassium 4.1 Chloride 98 Carbon Dioxide 30.3 BUN 12.0 Creatinine 0.94 Glucose 112 H Calcium 9.4 Assessment and Plan Assessment and Plan (1) Deep vein thrombosis of lower extremity: Assessment and Plan: start on lovenox, will transition to eliquis tomorrow Qualifiers: Affected thrombotic vein of extremity: tibial Chronicity: acute Laterality: right Qualified Code(s): I82.441 - Acute embolism and thrombosis of right tibial vein (2) Edema, peripheral: Assessment and Plan: collin Delaney (3) Cellulitis of right lower leg: Assessment and Plan: wound culture pending, normal WBC's, placed on vancomycin and zosyn (4) Nausea & vomiting: Assessment and Plan: zofran as needed Qualifiers: Vomiting type: unspecified Qualified Code(s): R11.2 - Nausea with vomiting, unspecified (5) GERD (gastroesophageal reflux disease): Assessment and Plan: continue omeprazole Qualifiers: Esophagitis presence: without esophagitis Qualified Code(s): K21.9 - Gastro-esophageal reflux disease without esophagitis (6) Hypertension: Assessment and Plan: continue metoprolol, prazosin, lisinopril, lasix Qualifiers: Hypertension type: primary hypertension Qualified Code(s): I10 - Essential (primary) hypertension (7) Prediabetes: Assessment and Plan: check ha1c in the morning (8) Asthma: Assessment and Plan: continue home medications Qualifiers: Asthma severity: unspecified severity Asthma persistence: unspecified Asthma complication type: unspecified Qualified Code(s): J45.909 - Unspecified asthma, uncomplicated (9) Rheumatoid arthritis: Assessment and Plan: takes methotrexate weekly Qualifiers: Rheumatoid arthritis location: unspecified site Rheumatoid factor presence: unspecified presence Qualified Code(s): M06.9 - Rheumatoid arthritis, unspecified (10) Tobacco abuse: Assessment and Plan: spokes 1ppd, nicoderm patch applied Plan patient is a full code patient is in observation status and is not expected to cross 2 midnights therapeutic Lovenox
[2023-09-14] MEDS: NICOTINE 21 MG PATCH.TD24 TD (16:08)
[2023-09-14] MEDS: PIPERACILLIN SODIUM/TAZOBACTAM 3.375 GM in 0.9 % SODIUM CHLORIDE 50 ML IV ×2 (16:08→23:48)
[2023-09-14] MEDS: 0.9 % SODIUM CHLORIDE 250 ML 10 ML IV (16:08)
[2023-09-14] MEDS: FLUTICASONE UMECLIDIN VILANTER IH (20:58)
[2023-09-14] MEDS: VANCOMYCIN HCL 1,500 MG in 0.9 % SODIUM CHLORIDE 500 ML 250 MG IV (21:16)
[2023-09-14] MEDS: ENOXAPARIN SODIUM 100 MG/ML SYRINGE 120 MG SUBQ (21:16)
[2023-09-15] VITALS (8 sets, daily range): BP systolic 107–166; BP diastolic 65–81; PULSE 60–76; RESP 16–18; TEMP 36.6–36.8; O2SAT 90–96
[2023-09-15 05:25] LABS: Basophils Percent Auto 0.4 % (0.2-2.0); Eosinophils Absolute Auto 0.1 10^3/uL (0.0-0.7); Eosinophils Percent Auto 0.9 % (0.9-7.0); Hematocrit 38.9 % (36.0-48.0); Hemoglobin 12.2 g/dL (12.0-16.0); Immature Granulocytes Abs Auto 0.01 10^3/uL (0.00-0.03); Immature Granulocytes Pct Auto 0.1 % (0.0-0.5); Lymphocytes Absolute Auto 1.5 10^3/uL (1.2-3.8); Mean Corpuscular HGB Conc 31.4 g/dL (29.9-35.2); Mean Corpuscular Volume 89.2 fL (81.0-99.0); Mean Platelet Volume 10.1 fL (9.5-13.5); Monocytes Absolute Auto 0.3 10^3/uL (0.3-0.8); Monocytes Percent Auto 4.3 % (1.7-12.0); Neutrophils Percent Auto 72.3 % (43.0-75.0); Platelet Count 249 10^3/uL (150-450); Red Blood Count 4.36 10^6/uL (4.20-5.40); White Blood Count 6.9 10^3/uL (4.0-11.0)
[2023-09-15 06:16] LABS: Estimated Average Glucose 131 mg/dL; Glycohemoglobin A1C 6.2 % (4.5-6.2)
[2023-09-15 06:17] LABS: Alanine Aminotransferase 22 U/L (14-59); Albumin Level 3.4 g/dL (3.4-5.0); Alkaline Phosphatase 72 U/L (46-116); Aspartate Amino Transferase 22 U/L (15-37); BUN Creatinine Ratio 13.3; Bilirubin Total 1.1 mg/dL (0.2-1.0); Calcium 8.9 mg/dL (8.5-10.1); Carbon Dioxide 26.8 mmol/L (21.0-32.0); Chloride 103 mmol/L (98-107); Estimated GFR (African America >60 (>=60); Estimated GFR (Non-African Ame >60 (>=60); Globulin 3.4 g/dL; Glucose 156 mg/dL (74-106); Potassium 3.8 mmol/L (3.5-5.1); Sodium 138 mmol/L (136-145); Total Protein 6.8 g/dL (6.4-8.2)
[2023-09-15] MEDS: PIPERACILLIN SODIUM/TAZOBACTAM 3.375 GM in 0.9 % SODIUM CHLORIDE 50 ML IV (06:47)
[2023-09-15] MEDS: OMEPRAZOLE 20 MG CAPSULE.DR PO (06:47)
--- NOTE | 2023-09-15 08:46 | PM.PN ---
Exam Constitutional Vital Signs, click to edit/add: Last Vital Signs Temp 98.3 F 09/15/23 04:00 Pulse 60 09/15/23 08:00 Resp 18 09/15/23 04:00 BP 107/68 09/15/23 04:00 Pulse Ox 95 09/15/23 04:00 O2 Del Method Room Air 09/15/23 04:00 Progress Note: Objective Labs Labs: Short CBC 09/14/23 09/15/23 Range/Units 09:15 04:53 WBC 8.9 6.9 (4.0-11.0) 10^3/uL Hgb 14.0 12.2 (12.0-16.0) g/dL Hct 43.3 38.9 (36.0-48.0) % Plt Count 294 249 (150-450) 10^3/uL BMP 09/14/23 09/15/23 09:15 04:53 Sodium 139 138 Potassium 4.1 3.8 Chloride 98 103 Carbon Dioxide 30.3 26.8 BUN 12.0 11.0 Creatinine 0.94 0.83 Glucose 112 H 156 H Calcium 9.4 8.9 Liver Function 09/15/23 Range/Units 04:53 Total Bilirubin 1.1 H (0.2-1.0) mg/dL AST 22 (15-37) U/L ALT 22 (14-59) U/L Alkaline Phosphatase 72 (46-116) U/L Albumin 3.4 (3.4-5.0) g/dL Progress Note: A&P Assessment and Plan (1) Deep vein thrombosis of lower extremity: Qualifiers: Affected thrombotic vein of extremity: tibial Chronicity: acute Laterality: right Qualified Code(s): I82.441 - Acute embolism and thrombosis of right tibial vein (2) Edema, peripheral: (3) Cellulitis of right lower leg: (4) Nausea & vomiting: Qualifiers: Vomiting type: unspecified Qualified Code(s): R11.2 - Nausea with vomiting, unspecified (5) GERD (gastroesophageal reflux disease): Qualifiers: Esophagitis presence: without esophagitis Qualified Code(s): K21.9 - Gastro-esophageal reflux disease without esophagitis (6) Hypertension: Qualifiers: Hypertension type: primary hypertension Qualified Code(s): I10 - Essential (primary) hypertension (7) Prediabetes: (8) Asthma: Qualifiers: Asthma severity: unspecified severity Asthma persistence: unspecified Asthma complication type: unspecified Qualified Code(s): J45.909 - Unspecified asthma, uncomplicated (9) Rheumatoid arthritis: Qualifiers: Rheumatoid arthritis location: unspecified site Rheumatoid factor presence: unspecified presence Qualified Code(s): M06.9 - Rheumatoid arthritis, unspecified (10) Tobacco abuse:
[2023-09-15] MEDS: FUROSEMIDE 40 MG TABLET PO (09:18)
[2023-09-15] MEDS: APIXABAN 5 MG TABLET 10 MG PO (09:18)
[2023-09-15] MEDS: LISINOPRIL 20 MG TABLET PO (09:18)
[2023-09-15] MEDS: METOPROLOL SUCCINATE 25 MG TAB.ER.24H PO (09:18)
[2023-09-15] MEDS: BUSPIRONE HCL 10 MG TABLET PO (09:18)
[2023-09-15] MEDS: DULOXETINE HCL 60 MG CAPSULE.DR PO (09:18)
[2023-09-15] MEDS: LAMOTRIGINE 100 MG TABLET PO (09:18)
[2023-09-15] MEDS: FOLIC ACID 1 MG TABLET PO (09:18)
--- NOTE | 2023-09-15 11:45 | CM.NOTE ---
Rounds made with Dr. Del Real, pt will discharge to home today on Eliquis. Pt will f/u with PCP in one week.
--- NOTE | 2023-09-15 11:50 | PM.DS1 ---
DS: Providers Provider Date of admission: 09/14/23 11:01 Primary care physician: ABRAM GALDAMEZ APRN-SARA Admitting clinician: Jennifer Del Real Attending physician on discharge: Jennifer Del Real DS: Diagnosis Discharge Diagnosis (1) Deep vein thrombosis of lower extremity: Qualifiers: Affected thrombotic vein of extremity: tibial Chronicity: acute Laterality: right Qualified Code(s): I82.441 - Acute embolism and thrombosis of right tibial vein (2) Edema, peripheral: (3) Cellulitis of right lower leg: (4) Nausea & vomiting: Qualifiers: Vomiting type: unspecified Qualified Code(s): R11.2 - Nausea with vomiting, unspecified (5) GERD (gastroesophageal reflux disease): Qualifiers: Esophagitis presence: without esophagitis Qualified Code(s): K21.9 - Gastro-esophageal reflux disease without esophagitis (6) Hypertension: Qualifiers: Hypertension type: primary hypertension Qualified Code(s): I10 - Essential (primary) hypertension (7) Prediabetes: (8) Asthma: Qualifiers: Asthma severity: unspecified severity Asthma persistence: unspecified Asthma complication type: unspecified Qualified Code(s): J45.909 - Unspecified asthma, uncomplicated (9) Rheumatoid arthritis: Qualifiers: Rheumatoid arthritis location: unspecified site Rheumatoid factor presence: unspecified presence Qualified Code(s): M06.9 - Rheumatoid arthritis, unspecified (10) Tobacco abuse: DS: Summary Hospital Course Hospital Course: patient is a 48-year-old female with past medical history of hypertension, bipolar disorder, asthma, hyperlipidemia, smoker who presented to the Emergency Room with increased swelling, pain, redness to her right lower extremity. Ultrasound which showed an acute deep vein thrombosis of the mid and distal tibial vein. She denies ever having history of any clots in the past she denies any family history of blood clots. She was placed on Lovenox BID and that was stopped and Eliquis was started. Initial coags were within normal limits. She is a smoker and discussed that stopping smoking would improve her outcome. She will be on Eliquis 10mg BID x 7 days then 5mg BID for a total of 3 months since first DVT. She may continue to use compression garmets for her Lower ext swelling. Her Right lower ext cellulitis failed treatment with keflex, responded well to Vancomycin and zosyn. Will place on clindamycin 300mg q8 hours x 7 days. She will have close follow up with her pcp. She is to return to the ER with any worsening signs or symptoms. WBC's normal range. Afebrile at the time of dischage. Status at Discharge Functional status at discharge: independent ambulation Overall status at discharge: patient is back to baseline Time Spent with Patient Time attestation: Total time spent providing and/or coordinating discharge services: Time spent: greater than 30 minutes Exam Narrative Exam Narrative: General: Patient is alert, and oriented to person, place and time with normal affect, proper hygiene Skin: right lower ext erythema from above the ankle to just below the knee, erythema does not including knee or ankle joint; much improved today with almost no erythema present Head: atraumatic, acephalic Eyes: PERRLA, no nystagmus present, conjunctiva clear, no scleral icterus Ears: normal gross auditory acuity Heart: Normal rate and rhythm, no murmurs/rubs/gallops Lungs: no audible wheezes, crackles and normal breath sounds all lung medeiros Abdomen: Normal audible bowel sounds, no distension, No palpable masses, no organomegaly, no rebound/guarding/ or rigidity Neuro: CN II-X grossly intact Constitutional Vital Signs, click to edit/add: Last Vital Signs Temp 97.9 F 09/15/23 11:36 Pulse 65 09/15/23 11:36 Resp 16 09/15/23 11:36 BP 132/78 09/15/23 11:36 Pulse Ox 96 09/15/23 11:36 O2 Del Method Room Air 09/15/23 11:36 DS: Data Data Completed and Pending Labs on day of discharge: Labs from last 24 hours 09/15/23 09/14/23 09/14/23 04:53 12:17 10:52 WBC 6.9 RBC 4.36 Hgb 12.2 Hct 38.9 MCV 89.2 MCH 28.0 MCHC 31.4 RDW 16.0 H Plt Count 249 MPV 10.1 Neut % (Auto) 72.3 Lymph % (Auto) 22.0 [place] % (Auto) 4.3 Eos % (Auto) 0.9 Baso % (Auto) 0.4 Neut # (Auto) 5.0 Lymph # (Auto) 1.5 [place] # (Auto) 0.3 Eos # (Auto) 0.1 Baso # (Auto) 0.0 Abs Immat Gran (auto) 0.01 Imm/Tot Granulo (auto) 0.1 PT 9.9 INR 0.93 APTT 27.4 Sodium 138 Potassium 3.8 Chloride 103 Carbon Dioxide 26.8 Anion Gap 12.0 BUN 11.0 Creatinine 0.83 Est GFR ( Amer) >60 Est GFR (Non-Af Amer) >60 BUN/Creatinine Ratio 13.3 Glucose 156 H Estimat Average Glucose 131 Hemoglobin A1c 6.2 Lactate 1.0 Calcium 8.9 Total Bilirubin 1.1 H AST 22 ALT 22 Alkaline Phosphatase 72 Total Protein 6.8 Albumin 3.4 Globulin 3.4 Albumin/Globulin Ratio 1.0 Preliminary micro results at discharge 09/14/23 09:15 Wound Culture - Preliminary Leg Right Discharge Plan Discharge Disposition: Home, Self-Care Condition: Good Discharge Medications: New Eliquis 5 mg tablet 5 mg PO BID 30 Days Qty: 74 0RF Rx Instructions: take 2 tabs(10mg) PO BID x 7 days, then 1 tab(5mg) PO BID clindamycin HCl 300 mg capsule 300 mg PO Q8H 7 Days Qty: 21 0RF Continued albuterol sulfate 90 mcg/actuation HFA aerosol inhaler 2 inh INHALATION Q4H PRN (Reason: shortness of breath or wheezing) atorvastatin 10 mg tablet 10 mg PO DAILY buspirone 10 mg tablet 10 mg PO DAILY Vraylar 4.5 mg capsule 4.5 mg PO DAILY duloxetine 60 mg capsule,delayed release(DR/EC) 60 mg PO DAILY Trelegy Ellipta 100-62.5-25 mcg blister with device 1 inh INHALATION Q24H folic acid 1 mg tablet 1 mg PO DAILY hydroxyzine pamoate 50 mg capsule 50 mg PO Q8H PRN (Reason: anxiety) lamotrigine 100 mg tablet 100 mg PO DAILY lisinopril 20 mg tablet 20 mg PO DAILY methotrexate sodium 2.5 mg tablet 25 mg PO .weekly metoprolol succinate 25 mg tablet extended release 24 hr 25 mg PO DAILY omeprazole 20 mg capsule,delayed release(DR/EC) 20 mg PO DAILY prazosin 1 mg capsule 1 mg PO DAILY spironolactone 25 mg tablet 25 mg PO DAILY Hold Instructions: Order Change tizanidine 4 mg tablet 4 mg PO DAILY PRN (Reason: muscle spasticity) trazodone 150 mg tablet 150 mg PO DAILY furosemide 40 mg tablet 40 mg PO BID Discontinued cephalexin 500 mg capsule 500 mg PO QID 7 Days Qty: 28 0RF Activity: increase activity as tolerated Diet: advance to your usual diet Print Language: Polish Forms: Portal Instructions Follow Up Appointments: Thu. September 17 @ 8:45am with Dr. Almaraz [facility] - [place], [place] [phone] Thu. October 06 @ 3:45pm with Dr. Phan [phone]
--- NOTE | 2023-09-15 11:58 | CM.NOTE ---
Education provided to pt regarding new medication Eliquis, pt also provided with 30 day free trial card for initial prescription. Medicare Outpatient Observation Notice discussed with pt, pt verbalizes understanding and signs paper. Original given to pt and copy placed on pt's chart.
--- NOTE | 2023-09-16 16:26 | CM.DCFOLLOWU ---
Person spoke with: patient How are you feeling? well How is your pain? no pain Did you understand your discharge instructions? yes Do you have any questions about your discharge instructions? no Were you given any prescriptions at discharge? yes Were you able to get your prescriptions filled? yes Do you understand how to take your medications as ordered? yes Do you have any questions about your follow up appointment and do you plan to keep your follow up appointment? no questions, follow ups scheduled Is there anything else that you would like to discuss? no Questions/Comments/Concerns/Other: N/A
== END 2023-09-15 13:15 | disposition home or self-care (01) ==
LOC: ER 10:36 → MS 13:35
PROVIDERS: Admitting Provider Family Medicine; Emergency Provider Emergency Medicine; PCP Nurse Practitioner Primary Care; Visit Provider Family Medicine
DX: I82.441 Acute embolism and thrombosis of right tibial vein (principal); R60.9 Edema, unspecified; L03.115 Cellulitis of right lower limb; R11.2 Nausea with vomiting, unspecified; K21.9 Gastro-esophageal reflux disease without esophagitis; I11.0 Hypertensive heart disease with heart failure; R73.03 Prediabetes; J44.9 Chronic obstructive pulmonary disease, unspecified; M06.9 Rheumatoid arthritis, unspecified; F17.210 Nicotine dependence, cigarettes, uncomplicated; F31.9 Bipolar disorder, unspecified; E78.5 Hyperlipidemia, unspecified; M19.90 Unspecified osteoarthritis, unspecified site; F41.9 Anxiety disorder, unspecified; G47.30 Sleep apnea, unspecified; Z87.01 Personal history of pneumonia (recurrent); E78.00 Pure hypercholesterolemia, unspecified; I50.9 Heart failure, unspecified; I25.2 Old myocardial infarction; Z98.890 Other specified postprocedural states; Z90.89 Acquired absence of other organs; Z98.891 History of uterine scar from previous surgery; Z96.659 Presence of unspecified artificial knee joint; Z79.899 Other long term (current) drug therapy
CPT/HCPCS: 36415; 80048; 80053; 83036; 83605; 84145; 85025; 85610; 85730; 87040; 87070; 93971; 94640; 96365; 96366; 96367; 96368; 96372; 99285; G0378; J3370

== ENCOUNTER 2023-10-05 19:58 | Outpatient (OUT) | payer MEDICARE, MEDICAID, SELFPAY ==
--- OUTSIDE RECORDS SUMMARY | 2023-10-05 20:06 | XMS_ITS | CCD ---
Author Organization [facility] Care Team Providers Care Student Success Advisor Name Role Phone Unavailable Primary Care Provider Unavailabl e Faisal Nix MD, Wally Primary Care Provider [facility]ULW[facility] ARENAS Referring Unavailable Jannette, Peterson Admitting Unavailable Jannette, Peterson Attending Unavailable ROSA, CM Referring Unavailable ROSA, CM Primary Care Unavailable Jannette, Peterson Admitting Unavailable Jannette, Peterson Attending Unavailable SELF, REFERRED Referring Unavailable MARY LEEEL Primary Care Unavailable Jannette, Peterson Admitting Unavailable [...] SHAMMO, DONNIE Primary Care Unavailable REQUEST, DR PIZANO LISTED Consulting Unavaila ble REQUEST, DR PIZANO [...] Attending Unavailable SHAMMO, DONNIE Primary Care Unavailable Sachin, Agustin Consulting Unavailable SHAMMO, DONNIE Consulting Unavailable SHAMMO, DONNIE Primary Care Unavailable MISC, DR REYES Consulting Unavailable MISC, DR REYES Attending Unavailable MISC, DR REYES Admitting Unavailable KLIPPER, AGUSTIN Consulting Unavailable SHAMMO, DONNIE Primary Care Unavailable SHAMMO, DONNIE Attending Unavailable SHAMMO, DONNIE Admitting Unavailable Shammo WIRE LATHER - SENIOR TRAINING SPECIALIST, [facility] Primary Care Provi orly MOHIT DEJESUS Admitting Unavailable WMMOHIT NUNEZ Attending Unavailable SHAMMO, [facility] Primary Care Unavailable MOHIT DEJESUS Referring Unavailable SHAMMO, [facility] Primary Care Unavailable Franklin, Kayla Unavailable ALIS MENDEZ Attending Unavailable ADELAIDA SUBRAMANIAN Attending Unavailable Faisal Nix MD, Wally Primary Care Provider Ovtimbo, SARA Guajardo M Attending Unavailable VALORIE ARIAS Referring Unavailable OVTIMBO, CASANDRA Referring Unavailable KIM GARCIA Attending Unavailable KIM GARCIA Attending Unavailable MEDINA MONTES Attending Unavailable MEDINA MONTES Attending Unavailable OVITT, CASANDRA Attending Unavailable BRITTNEY BETTS Attending Unavailable KIM GARCIA Attending Unavailable OVITT, CASANDRA Referring Unavailable Allergies Allergy Classification Reported Allergen(s) Allergy Type Date of Onset Reaction(s) Facility (5 sources) Doxycycline; Translations: [DOXYCYCLINE] Drug Allergy 7 [employer] (6 sources) Oxytocin; Translations: [OXYTOCIN] Drug Allergy 4 Anaphylaxis [employer] Work Phone: (5 sources) SUMAtriptan; Translations: [SUMATRIPTAN] Drug Allergy 7 Other (See Comments) [employer] Work Phone: (1 source) Desonide Drug Allergy [address] [facility] Repository (3 sources) Doxycycline Drug Allergy [address] [facility] (4 sources) Morphine; Translations: [MORPHINE] Drug Allergy [address] [facility] (4 sources) NSAIDs; Translations: [NSAIDS (NON-STEROIDAL ANTI-INFLAMMATO RY DRUG)] Drug allergy (disorder) [address] [facility] (2 sources) Oxytocin Drug Allergy [address] [facility] (4 sources) Plasmin Drug Allergy [address] [facility] (3 sources) Doxycycline Drug Allergy 7 [facility] (4 sources) Non-steroidal anti-inflammato ry agent Drug Allergy 7 Other: See Comments [facility] (3 sources) SUMAtriptan Drug Allergy 7 Other: See Comments [facility] (2 sources) Oxytocin Drug Allergy 6 [facility] Repository (3 sources) dulaglutide; Translations: [DULAGLUTIDE] Drug Allergy 3 Nausea And Vomiting [employer] (1 source) dulaglutide Drug Allergy vomiting [employer] Other (1 source) ADHESIVE TAPE-SILICONES; Translations: [ADHESIVE TAPE-SILICONES] Propensity to adverse reactions to drug (disorder) 4 [facility] Medications Current Medications Medication Drug [...] by mouth every 6 hours as needed. [id number] 200 actuat albuterol 0.09 mg/actuat metered dose inhaler (3 sources) beta2-Adrenergic Agonist Start: 05-16-2022 take 2 puff(s) by mouth every four hours albuterol HFA (PROVENTIL HFA, VENTOLIN HFA) 90 mcg/actuation inhaler INHALE 2 PUFFS BY MOUTH EVERY 4 HOURS IF NEEDED FOR SHORTNESS OF BREATH 0 05/16/2022 Active Start: 08-09-2021 take 2 puff(s) by mo [facility] every four hours as needed albuterol sulfate HFA 108 (90 Base) MCG/ACT inhaler INHALE 2 PUFFS BY MOUTH EVERY 4 HOURS NEEDED 0 08/09/2021 Active Comment on above: INHALE 2 PUFFS BY [facility] EVERY 4 HOURS IF NEEDED FOR SHORTNESS [...] Comment on above: Take 1 tablet by [facility] once daily. brexpiprazole 2 mg oral [...] to affected area three times daily. capsaicin 0.082206 mg/mg / lidocaine 0.045 mg/mg / menthol [...] mg Not-Taking/PRN take 1 capsule by mo [facility] once daily, then take 4 capsules by [...] on above: INHALE 1 PUFF BY RAZ TH ONCE DAILY - - RINSE MOUTH AFTER [...] Onset: 09-03-2023 Episodic Other connective tissue disease (3 sources) Other [...] rheumatoid factor, unspecified site] Onset: 01-12-2023 Chronic Skin and subcutaneous tissue infections (2 sources) Cellulitis of right lower limb; Translations: [Cellulitis, unspecified] Onset: 09-16-2022 Episodic Spondylosis; intervertebral disc disorders; other back problems (6 sources) Postlaminectomy syndrome, not elsewhere classified; Translations: [POSTLAMINECTOMY SYNDROME NEC] Onset: 05-19-2022 Chronic Substance-related disorders (3 sources) Nicotine dependence, cigarettes, uncomplicated; Translations: [Nicotine dependence, unspecified, uncomplicated] Onset: 09-16-2022 Chronic Unclassified (2 sources) XR Onset: 11-21-2021 Unclassified (1 source) PRIMARY OSTEOARTHRITS OT SPEC SITE; Translations: [PRIMARY OSTEOARTHRITS OTH SPEC SITE] Onset: 08-16-2022 Unclassified (1 source) skilled nursing (current) use of 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 agent; Translations: [skilled nursing (current) use of 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 agent] Onset: 07-29-2023 [...] 10-29-2021 Episodic Other aftercare (2 sources) [facility] [place] drug therapy; Translations: [Other [place] [facility] ([facility]) drug therapy] Onset: 01-12-2023 Episodic Other connective tissue disease (1 source) Myalgia, unspecified site; Translations: [MYALGIA UNSPECIFIED SITE] Onset: 07-23-2022 Episodic Residual codes; unclassified (1 source) Family history of malignant neoplasm of breast; Translations: [FAMILY HX MALIG NEOPLASM OF BREAST] Onset: 05-31-2022 Episodic Residual codes; unclassified (1 source) Tobacco user; Translations: [Tobacco use] Onset: 10-29-2021 10-29-2021 Episodic Syncope (1 source) Syncope; Translations: [Syncope and collapse] Onset: 10-29-2021 10-29-2021 Episodic Unclassified (1 source) skilled nursing (current) use of 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 agent; Translations: [manager intermediate (current) use of 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 agent] Onset: 07-30-2023 Results Test Name Value Interpretation Reference Range Facility 36on 09-30-2023 36 Requested. Pt notifi ed of obtaining clearances from pulm and PCP. [facility] 36 Cleared by rheum. Wi ll need to hold methotrexate 1 week prior and after surgery per Dr. Estrada. PCP and Pulm clearances faxed. Pulm called stating that pt has missed or rescheduled multiple appts, but is scheduled for 10/06. I called and updated pt that we have requested imaging from [place] and that she has an appt with pulm on 10/06 that she will need to attend to obtain clearance, and to call PCP's office to notify of clearance request, will most likely need to be seen prior to clearance. Pt verbalized understanding. [facility] 36on 09-09-[address] [...] with him next week (09/16) for hysterectomy. [facility] 36 Regarding echo performed on 09/07/2023: Ginny, [...] I have uploaded the records into her media aid for your review. She's awaiting surgery clearance for hysterectomy scheduled for next week. [facility] Documentationon 09-09-2023 Documentation [id number] Jackie Mendoza 1975 F Date Provider Department Center 09/09/2023 Jaciel-BRITTNEY BETTS [facility] Family History Problem Relation Age of Onset Coronary artery disease Mother No Known Problems Father Family Status - Relation Status Age at Mother Notes: cancer brast ca, ovarian, skin, heart disease Father [facility] 36on 09-07-2023 36 Per Luz in radiolo gy scheduling, pt requested CT order to be faxed to [facility]. Order faxed to [facility]. [facility] 36on 09-04-2023 36 Spoke with patient. 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 Will need instructions from her operator prefinish regarding holding her methotrexate before and after surgery. Encouraged her to take what ever time she would like to decide, though patient reports she would like to proceed as soon as possible. [facility] 36 Dr. Arias case. Dx: Degenerative lumbar stenosis, lumbar spondylolisthesis. Procedure: Removal of L4-S1 hardware, laminectomy L2-L3, posterior instrumented fusion L2-L4. Time: 5 hours. Position: prone on open Johnny. Needs: [employer] rep, O arm, universal removal set, Stealth. Needs PCP clearance and pulm clearance--has new PCP, same office; pulm is Dr. Elizabeth Phan in [place]. Will need to check with her operator prefinish Dr. Estrada here to see if her methotrexate needs to be held before or after surgery. Will need CT lumbar prior to surgery to evaluated bone fusion-- I will order this. Will need bone stimulator after surgery--will order. Thank you. [facility] Telephoneon 09-04-2023 Telephone [id number] Oniel eMndozachristine lino L 1975 F Date Provider Department Center 09/04/2023 148-MARY, [facility] [place] Family History Problem Relation Age of Onset Coronary artery disease Mother No Known Problems Father Family Status - Relation Status Age at Mother Notes: cancer brast ca, ovarian, skin, heart disease Father [facility] Consulton 09-03-2023 Consult [id number] Jackie Mendoza 1975 F Date Provider Department Center 09/03/2023 148-MARY, [facility] [place] Family History Problem Relation Age of Onset Coronary artery disease Mother No Known Problems Father Family Status - Relation Status Age at Mother Notes: cancer brast ca, ovarian, skin, heart disease Father Level of Service:38092 ME OFFICE/OUTPATIENT NEW MODERATE MDM 45 MINUTES Reason for Visit and Comments: Consult [484] - Pt is here for a CO visit for Failed Back Syndrome. [facility] Office Visiton 08-25-2023 Follow-up visit [id number] Jackie Mendoza 1975 F Date Provider Department Center 08/25/2023 Jaciel-BRITTNEY BETTS [facility] Family History Problem Relation Age of Onset Coronary artery disease Mother No Known Problems Father Family Status - Relation Status Age at Mother Notes: cancer brast ca, ovarian, skin, heart disease Father Level of Service:61198 ME OFFICE/OUTPATIENT NEW MODERATE MDM 45 MINUTES [facility] Follow-Upon 07-30-2023 Follow-Up [id number] Jackie Mendoza 1975 F Date Provider Department Center 07/30/2023 MEDINA HENRY [facility] RHEUM Nila Heal Family History Problem Relation Age of Onset No Known Problems Father Family Status - Relation Status Age at Mother Notes: cancer brast ca, ovarian, skin, heart disease Father Level of Service:97698 ME OFFICE/OUTPATIENT ESTABLISHED MOD MDM 30 MIN () Reason for Visit and Comments: Follow-up [950137] [facility] 36on 07-28-2023 36 Letter will be at Check out Desk [facility] 36 Pt contacted, requested to pick letter up on 07/30/23 at her appointment [facility] 36on 07-27-2023 36 Pt is asking if it i s possible for her to have a note for work that excuses her on 07/23/23, 07/24/23 and 07/27/23; because of the great pain she has experienced. [facility] CBC WITH AUTO DIFFERENTIALon 07-27-2023 Basophils (Bld) [#/Vol] 0.07 10*3/uL Normal 0.00-0.20 [facility] Comment on above: Performed By: #### L [id number] ####[facility] (BEAKER)[address] [place] [address] Basophils/100 WBC (Bld) 0.8 % Normal 0.0-1.0 [facility] Comment on above: Performed By: #### L [id number] ####[facility] (BEAKER)[address] [place] [address] Eosinophils (Bld) [#/Vol] 0.10 10*3/uL Normal 0.00-0.50 [facility] Comment on above: Performed By: #### L [id number] ####[facility] (BEAKER)[address] [place] [address] Eosinophils/100 WBC (Bld) 1.2 % Normal 0.0-6.0 [facility] Comment on above: Performed By: #### L [id number] ####[facility] (BEAKER)[address] [place] [address] Erythrocyte distribution width (RBC) [Ratio] 15.9 % High 11.5-15.0 [facility] Comment on above: Performed By: #### L [id number] ####[facility] (BEAKER)[address] [place] [address] ERYTHROCYTE MEAN CORPUSCULAR HEMOGLOBIN CONCENTRATION (G/DL) BY AUTOMATED 32.8 g/dL Normal 32.0-35.0 [facility] Comment on above: Performed By: #### L [id number] ####[facility] (BEAKER)[address] [place] [address] Hematocrit (Bld) [Volume fraction] 41.5 % Normal 36.0-48.0 [facility] Comment on above: Performed By: #### L [id number] ####[facility] (BEAKER)[address] [place] [address] Hemoglobin (Bld) [Mass/Vol] 13.6 g/dL Normal 12.0-15.0 [facility] Comment on above: Performed By: #### L [id number] ####[facility] [place] [address] Immature granulocytes (Bld) [#/Vol] 0.02 10*3/uL Normal 0.00-0.20 [facility] Comment on above: Performed By: #### L [id number] ####[facility] ([facility])[address] [place] [address] Immature granulocytes/100 WBC (Bld) 0.2 % Normal 0.0-1.0 [facility] Comment on above: Performed By: #### L [id number] ####[facility] ([facility])[address] [place] [address] Lymphocytes (Bld) [#/Vol] 1.89 10*3/uL Normal 1.20-4.00 [facility] Comment on above: Performed By: #### L [id number] ####[facility] (BEAKER)[address] [place] [address] Lymphocytes/100 WBC (Bld) 22.5 % Normal 20.0-45.0 [facility] Comment on above: Performed By: #### L [id number] ####[facility] (BEAKER)[address] [place] [address] MCH (RBC) [Entitic mass] 28.8 pg Normal 27.0-33.0 [facility] Comment on above: Performed By: #### L [id number] ####[facility] (BEAKER)[address] [place] [address] MCV (RBC) [Entitic vol] 87.7 fL Normal 82.0-98.0 [facility] Comment on above: Performed By: #### L [id number] ####[facility] (BEAKER)[address] [place] [address] Monocytes (Bld) [#/Vol] 0.61 10*3/uL Normal 0.10-1.00 [facility] Comment on above: Performed By: #### L [id number] ####[facility] (BEAKER)[address] [place] [address] Monocytes/100 WBC (Bld) 7.3 % Normal 5.0-12.0 [facility] Comment on above: Performed By: #### L [id number] ####[facility] (BEAKER)[address] [place] [address] Neutrophils (Bld) [#/Vol] 5.71 10*3/uL Normal 1.60-7.60 [facility] Comment on above: Performed By: #### L [id number] ####[facility] [place] [address] Neutrophils/100 WBC (Bld) 68.0 % Normal 40.0-72.0 [facility] Comment on above: Performed By: #### L [id number] ####[facility] (BEAKER)[address] [place] [address] NRBC (PER 100 WBCS) BY AUTOMATED COUNT 0.0 % Normal 0 [facility] Comment on above: Performed By: #### L [id number] ####[facility] (BEAKER)[address] [place] [address] PLATELETS (10*3/UL) IN BLOOD AUTOMATED COUNT 240 10*3/uL Normal 150-400 [facility] Comment on above: Performed By: #### L [id number] ####[facility] (BEAKER)[address] [place] [address] RBC (Bld) [#/Vol] 4.73 10*6/uL Normal 3.80-5.00 [facility] Comment on above: Performed By: #### L [id number] ####[facility] ([facility])[address] [place] [address] WBC (Bld) [#/Vol] 8.40 10*3/uL Normal 4.00-10.60 [facility] Comment on above: Performed By: #### L [id number] ####[facility] [place] [address] COMPREHENSIVE METABOLIC PANE Jamar 07-27-2023 Albumin [Mass/Vol] 4.3 g/dL Normal 3.5-5.7 [facility] Comment on above: Performed By: #### L [id number] ####[facility] [place] [address] ALP [Catalytic activity/Vol] 80 U/L Normal 34-104 [facility] Comment on above: Performed By: #### L [id number] ####[facility] [place] [address] ALT [Catalytic activity/Vol] 13 U/L Normal 7-52 [facility] Comment on above: Performed By: #### L [id number] ####[facility] [place] [address] Anion gap [Moles/Vol] 11 mmol/L Normal 7-20 [facility] Comment on above: Performed By: #### L [id number] ####[facility] [place] [address] AST [Catalytic activity/Vol] 14 U/L Normal 13-39 [facility] Comment on above: Performed By: #### L [id number] ####[facility] [place] [address] Bilirubin [Mass/Vol] 0.4 mg/dL Normal 0.3-1.0 [facility] Comment on above: Performed By: #### L [id number] ####[facility] ([facility] [place] [address] Calcium [Mass/Vol] 9.0 mg/dL Normal 8.6-10.3 [facility] Comment on above: Performed By: #### L [id number] ####[facility] (BEAKER)[address] [place] [address] Chloride [Moles/Vol] 105 mmol/L Normal 98-107 [facility] Comment on above: Performed By: #### L [id number] ####[facility] [place] [address] CO2 [Moles/Vol] 26 mmol/L Normal 21-31 [facility] Comment on above: Performed By: #### L [id number] ####[facility] ([facility])[address] [place] [address] Creatinine [Mass/Vol] 0.79 mg/dL Normal 0.60-1.20 [facility] Comment on above: Performed By: #### L [id number] ####[facility] [place] [address] GLOMERULAR FILTRATION RATE ML/MIN/1.73 SQ M.PREDICTED 91.1 mL/min/1.73m*2 Normal >60.0 [facility] Comment on above: Result Comment: [facility]???s estimated glomerular filtration rate (eGFR) will [...] of individuals. Performed By: #### L [id number] ####[facility] [place] [address] Glucose [Mass/Vol] 96 mg/dL Normal 70-100 [facility] Comment on above: Performed By: #### L [id number] ####[facility] (BEAKER)[address] [place] [address] Potassium [Moles/Vol] 3.9 mmol/L Normal 3.5-5.1 [facility] Comment on above: Performed By: #### L [id number] ####[facility] (BEAKER)[address] [place] [address] Protein [Mass/Vol] 6.9 g/dL Normal 6.0-8.3 [facility] Comment on above: Performed By: #### L [id number] ####[facility] (BEAKER)[address] [place] [address] Sodium [Moles/Vol] 138 mmol/L Normal 136-145 [facility] Comment on above: Performed By: #### L [id number] ####[facility] (BEAKER)[address] [place] [address] Urea nitrogen [Mass/Vol] 14 mg/dL Normal 7-25 [facility] Comment on above: Performed By: #### L [id number] ####[facility] (BEAKER)[address] [place] [address] UREA NITROGEN/CREATININE (MASS RATIO) IN SER/PLAS 17.[address] [facility] Comment on above: Performed By: #### L [id number] ####[facility] (BEAKER)[address] [place] [address] Follow-Upon 07-27-2023 Follow-Up [id number] Jackie Mendoza 1975 Date Provider Department Center 07/27/2023 MEDINA HENRY [facility] Nila Heal Family History Problem Relation Age of Onset No Known Problems Father Family Status - Relation Status Age at Mother Notes: cancer brast ca, ovarian, skin, heart disease Father Level of Service:61117 ME OFFICE/OUTPATIENT ESTABLISHED MOD MDM 30 MIN (GC) Reason for Visit and Comments: Follow-up [642059] [facility] Orders Onlyon 07-27-2023 Orders Only [id number] Jackie Mendoza 1975 F Date Provider Department Center 07/27/2023 JOEY OLIVIER [facility] R[facility]UM Nila Heal Family History Problem Relation Age of Onset No Known Problems Father Family Status - Relation Status Age at Mother Notes: cancer brast ca, ovarian, skin, heart disease Father [facility] DRUG SCREEN, UR-RFLEX CONFIR 07-14-2023 ALCOHOL, UR. Negative Normal (< 10 - Cutof) [facility] Comment on above: Order Comment: FACIL ITY: [facility] [id number] Performed By: #### D S-M+ #### [facility] [address] [place], [address] AMPHETAMINES, UR. Negative Normal (< 500 - Cutof) [facility] Comment on above: Order Comment: FACIL ITY: [facility] [id number] Performed By: #### D S-M+ #### [facility] [address] [place], [address] BARBITURATES, UR. Negative Normal (< 300 - [facility]) [facility] Comment on above: Order Comment: FACIL ITY: [facility] [id number] Performed By: #### D S-M+ #### [facility] [address] [place], [address] BENZODIAZEPINES, UR. Negative Normal (< 100 - [facility]) [facility] Comment on above: Order Comment: FACIL ITY: [facility] [id number] Performed By: #### D S-M+ #### [facility] [address] [place], [address] COCAINE METAB. UR. Negative Normal (< 150 - Cutof) [facility] Comment on above: Order Comment: FACIL ITY: [facility] [id number] Performed By: #### D S-M+ #### [facility] [address] [place], [address] CREAT, URINE 35.91 MG/DL Normal (20.00 - 320.0) [facility]: Order Comment: [facility] [id number] Performed By: #### D S-M+ #### [facility] [facility] [address] [place], [address] FENTANYL, UR SCREEN Positive High (< 1.0 - [facility]) [facility] Comment on above: Order Comment: FACIL ITY: [facility] [id number] Result Comment: FENT ANYL URINE SCREEN = POSITIVE Specimen sent for confirmation testing forfentanyl - [facility] test # [id number] Performed By: #### D S-M+ #### [facility] [facility] [address] [facility], [address] HEROIN METAB. UR. Negative Normal (< 10 - Cutof) [facility] Comment on above: Order Comment: [facility]IL [facility] [id number] Performed By: #### Ari S-M+ #### [facility] [facility] [address] [facility], [address] METHADONE METAB. UR. Negative Normal (< 100 - Cutof) [facility] Comment on above: Order Comment: [facility]IL [facility] [id number] Performed By: #### Ari S-M+ #### [facility] [address] [facility], [address] OPIATES, UR. Negative Normal (< 100 - Cutof) [facility] Comment on above: Order Comment: FACIL ITY: [facility] [id number] Performed By: #### D S-M+ #### [facility] [facility] [address] [place], [address] OXYCODONE, UR. Negative Normal (< 100 - Cutof) [facility] Comment on above: Order Comment: FACIL ITY: [facility] [id number] Performed By: #### D S-M+ #### [place] [facility] [address] [place], [address] pH (U) 5.0 [pH] Normal (5.0 - 9.0) [facility] Comment on above: Order Comment: FACIL ITY: [facility] [facility] [id number] Performed By: #### D S-M+ #### [place] [facility] [address] [place], [address] PHENCYCLIDINE, UR. Negative Normal (< 25 - Cutof) [facility] Comment on above: Order Comment: FACIL ITY: [facility] [id number] Performed By: #### D S-M+ #### [place] [facility] [address] [facility], [address] THC METABOLITE, UR. Positive High (< 20 - Cutof) [facility] Comment on above: Order Comment: FACIL ITY: [facility] [id number] Result Comment: THC METABOLITE URINE SCREEN = POSITIVE Specimen sent for confirmation testing for THC - [facility] test # [id number] Performed By: #### D S-M+ #### [place] [facility] [address] [place], [address] TRAMADOL, UR SCREEN Negative Normal (< 200 - Cutof) [facility] Comment on above: Order Comment: FACIL ITY: [facility] [id number] Result Comment: This drug testing is for medical treatment only. Analysis was performed as non-forensic testing and the results should be used only by healthcare providers to render diagnosis or treatment, or to monitor the progress of medical conditions. Performed By: #### D S-M+ #### [facility] [address] [facility], [address] Follow-Upon 04-27-2023 Follow-Up [id number] Jackie Mendoza 1975 F Date Provider Department Center 04/27/2023 [facility] Nila Heal Family History Problem Relation Age of Onset No Known Problems Father Family Status - Relation Status Age at Mother Notes: cancer brast ca, ovarian, skin, heart disease Father Level of Service:96529 ME OFFICE/OUTPATIENT ESTABLISHED MOD MDM 30-39 MIN () Reason for Visit and Comments: Follow-up [515871] Normal [facility] DRUG SCREEN, UR-RFLEX CONFIR 04-09-2023 ALCOHOL, UR. Negative Normal (< 10 - Cutof) [place] [facility] Comment on above: Order Comment: FACIL ITY: [facility] [id number] Performed By: #### D S-M+ #### [place] [facility] [address] [place], [address] AMPHETAMINES, UR. Negative Normal (< 500 - Cutof) [place] [facility] Comment on above: Order Comment: FACIL ITY: [facility] [id number] Performed By: #### D S-M+ #### [place] [facility] [address] [place], [address] BARBITURATES, UR. Negative Normal (< 300 - Cutof) [place] [facility] Comment on above: Order Comment: FACIL ITY: [facility] [id number] Performed By: #### D S-M+ #### [place] [facility] [address] [place], [address] BENZODIAZEPINES, UR. Negative Normal (< 100 - Cutof) [place] [facility] Comment on above: Order Comment: FACIL ITY: [facility] [id number] Performed By: #### D S-M+ #### [place] [facility] [address] [place], [address] COCAINE METAB. UR. Negative Normal (< 150 - Cutof) [facility] [facility] Comment on above: Order Comment: FACIL ITY: [facility] [id number] Performed By: #### D S-M+ #### [place] [facility] [address] [place], [address] CREAT, URINE 27.04 MG/DL Normal (20.00 - 320.0) [facility] [facility] Comment on above: Order Comment: FACIL ITY: [facility] [id number] Performed By: #### Ari S-M+ #### [place] [facility] [address] [place], [address] FENTANYL, UR SCREEN Negative Normal (< 1.0 - Cutof) [facility] Comment on above: Order Comment: FACIL ITY: [facility] [id number] Performed By: #### Ari S-M+ #### [place] [facility] [address] [place], [address] HEROIN METAB. UR. Negative Normal (< 10 - Cutof) [place] [facility] Comment on above: Order Comment: FACIL ITY: [facility] [id number] Performed By: #### Ari S-M+ #### [place] [facility] [address] [place], [address] METHADONE METAB. UR. Negative Normal (< 100 - Cutof) [place] [facility] Comment on above: Order Comment: FACIL ITY: [facility] [id number] Performed By: #### Ari S-M+ #### [place] [facility] [address] [place], [address] OPIATES, UR. Negative Normal (< 100 - Cutof) [place] [facility] Comment on above: Order Comment: FACIL ITY: [facility] [id number] Performed By: #### Ari S-M+ #### [place] [facility] [address] [place], [address] OXYCODONE, UR. Negative Normal (< 100 - Cutof) [place] [facility] Comment on above: Order Comment: FACIL ITY: [facility] [id number] Performed By: #### D S-M+ #### [place] [facility] [address] [place], [address] pH (U) 7.0 [pH] Normal (5.0 - 9.0) [facility] Comment on above: Order Comment: FACIL ITY: [facility] [id number] Performed By: #### D S-M+ #### [place] [facility] [address] [place], [address] PHENCYCLIDINE, UR. Negative Normal (< 25 - Cutof) [facility] Comment on above: Order Comment: FACIL ITY: [facility] [id number] Performed By: #### D S-M+ #### [facility] [address] [place], [address] THC METABOLITE, UR. Positive High (< 20 - Cutof) [facility] Comment on above: Order Comment: FACIL ITY: [facility] [id number] Result Comment: THC METABOLITE URINE SCREEN = POSITIVE Specimen sent for confirmation testing for THC - [facility] test # [id number] Performed By: #### D S-M+ #### [facility] [address] [place], [address] TRAMADOL, UR SCREEN Negative Normal (< 200 - Cutof) [facility] Comment on above: Order Comment: FACIL ITY: [facility] [id number] Result Comment: This drug testing is for medical treatment only. Analysis was performed as non-forensic testing and the results should be used only by healthcare providers to render diagnosis or treatment, or to monitor the progress of medical conditions. Performed By: #### D S-M+ #### [facility] [address] [place], [address] CBCon 03-05-2023 Erythrocyte distribution width (RBC) [Ratio] 15.0 % High 11.8-14.4 [facility] Comment on above: Performed By: #### C BC #### [facility] [address] [place] [address] [employer] Sales Representative: Harjit Flores MD Hematocrit (Bld) [Volume fraction] 39.9 % Normal 36.3-47.1 [facility] Comment on above: Performed By: #### C BC #### [facility] [address] [facility] [address] [employer] Sales Representative: Harjit Flores MD Hemoglobin (Bld) [Mass/Vol] 13.2 g/dL Normal 11.9-15.1 [facility] Comment on above: Performed By: #### C BC #### [facility] [address] [place] [address] [employer] Sales Representative: Harjit Flores MD MCH (RBC) [Entitic mass] 29.9 pg Normal 25.2-33.5 [facility] Comment on above: Performed By: #### C BC #### [facility] [place] [address] [employer] Sales Representative: Harjit Flores MD MCHC (RBC) [Mass/Vol] 33.1 g/dL Normal 28.4-34.8 [facility] Comment on above: Performed By: #### C BC #### [facility] [address] [facility] [place] [address] [employer] Sales Representative: Harjit Flores MD MCV (RBC) [Entitic vol] 90.3 fL Normal 82.6-102.9 [facility] Comment on above: Performed By: #### C BC #### [facility] [facility] [place] [address] [employer] Sales Representative: Harjit Flores MD NRBC Automated 0.0 per 100 WBC Normal 0.0 [facility] Comment on above: Performed By: #### C BC #### [facility] [address] [place] [address] [employer] Sales Representative: Harjit Flores MD Platelet mean volume (Bld) [Entitic vol] 10.4 fL Normal 8.1-13.5 [facility] Comment on above: Performed By: #### C BC #### [facility] [address] [facility] [place] [address] [employer] Sales Representative: Harjit Flores MD Platelets (Bld) [#/Vol] 209 10*3/uL Normal 138-453 [facility] Comment on above: Performed By: #### C BC #### [facility] [address] [facility] [place] [address] [employer] Sales Representative: Harjit Flores MD RBC (Bld) [#/Vol] 4.42 10*6/uL Normal 3.95-5.11 [facility] Comment on above: Performed By: #### C BC #### [facility] [place] [address] [employer] Sales Representative: Harjit Flores MD WBC (Bld) [#/Vol] 7.1 10*3/uL Normal 3.5-11.3 [facility] Comment on above: Performed By: #### C BC #### [facility] [place] [address] [employer] Sales Representative: Harjit Flores MD Erythrocyte distribution width (RBC) [Ratio] 15.0 % High 11.8 - 14.4 % [facility] Hematocrit (Bld) [Volume fraction] 39.9 % 36.3 - 47.1 % [facility] Hemoglobin (Bld) [Mass/Vol] 13.2 g/dL 11.9 - 15.1 g/dL [facility] Interpretation and review of laboratory results Abnormal [facility] MCH (RBC) [Entitic mass] 29.9 pg 25.2 - 33.5 pg [facility] MCHC (RBC) [Mass/Vol] 33.1 g/dL 28.4 - 34.8 g/dL [facility] MCV (RBC) [Entitic vol] 90.3 fL 82.6 - 102.9 fL [facility] Nucleated RBC/100 WBC (Bld) [Ratio] 0.0 % 0.0 per 100 WBC [facility] Platelet mean volume (Bld) [Entitic vol] 10.4 fL 8.1 - 13.5 fL [facility] Platelets (Bld) [#/Vol] 209 10*3/uL [facility] RBC (Bld) [#/Vol] 4.42 10*6/uL 3.95 - 5.1 1 m/uL [facility] WBC other (Bld) [#/Vol] 7.1 [facility] POCT urine pregnancyon 03-05 Beta HCG ( test) Ql (U) Negative NEGATIVE [facility] Comment on above: Specimens with hCG l evels near the threshold of the test (25 mIU/mL) may give a negative or indeterminate result. In such cases, another test should be performed with a new specimen in 48-72 hours. If early is suspected clinically in this setting, correlation with quantitative serum b-hCG level is suggested. [facility] Basic Metabolic Profon 02-19 Anion gap [Moles/Vol] 10 mmol/L Normal - [facility] Comment on above: Performed By: #### G LYHGB #### [facility] [address] [place] [address] [employer] Sales Representative: Saw Elizondo MD #### BMP #### [facility] [address] [place] [address] [employer] Sales Representative: Harjit Flores MD BUN/CRE Ratio 14 Normal - [facility] Comment on above: Performed By: #### G LYHGB #### [facility] [address] [place] [address] [employer] Sales Representative: Saw Elizondo MD #### BMP #### [facility] [address] [place] [address] [employer] Sales Representative: aHrjit Flores MD Calcium [Mass/Vol] 9.3 mg/dL Normal 8.6-10.4 [facility] Comment on above: Performed By: #### G LYHGB #### [address] [address] [employer] Sales Representative: Saw Elizondo MD #### BMP #### [facility] [address] [place] [address] [employer] Sales Representative: Harjit Flores MD Chloride [Moles/Vol] 103 mmol/L Normal 98-107 [facility] Comment on above: Performed By: #### G LYHGB #### [address] [address] [employer] Sales Representative: Saw Elizondo MD #### BMP #### [facility] [address] [place] [address] [employer] Sales Representative: Harjit Flores MD CO2 [Moles/Vol] 24 mmol/L Normal 20-31 [facility] Comment on above: Performed By: #### G LYHGB #### [address] [address] [employer] Sales Representative: Saw Elizondo MD #### BMP #### [facility] [address] [place] [address] [employer] Sales Representative: Harjit Flores MD Creatinine [Mass/Vol] 0.8 mg/dL Normal 0.5-0.9 [facility] Comment on above: Performed By: #### G LYHGB #### [address] [address] [employer] Sales Representative: Saw Elizondo MD #### BMP #### [facility] [address] [place] [address] [employer] Sales Representative: Harjit Flores MD GFR/1.73 sq M.predicted among non-blacks MDRD (S/P/Bld) [Vol rate/Area] mL/min/{1.73_m2} Normal >60 [facility] Comment on above: Result Comment: [...] secretion. Performed By: #### G LYHGB #### [address] [address] [employer] Sales Representative: Saw Elizondo MD #### BMP #### [facility] [address] [place], [place] [address] [employer] Sales Representative: Harjit Flores MD Glucose [Mass/Vol] 126 mg/dL High 70-99 [facility] Comment on above: Performed By: #### G LYHGB #### [address] [address] [employer] Sales Representative: Saw Elizondo MD #### BMP #### [facility] [address] [place] [address] [employer] Sales Representative: Harjit Flores MD Potassium [Moles/Vol] 4.0 mmol/L Normal 3.7-5.3 [facility] Comment on above: Performed By: #### G LYHGB #### [address] [address] [employer] Sales Representative: Saw Elizondo MD #### BMP #### [facility] [address] [place] [address] [employer] Sales Representative: Harjit Flores MD Sodium [Moles/Vol] 137 mmol/L Normal 135-144 [facility] Comment on above: Performed By: #### G LYHGB #### [address] [place] [address] [employer] Sales Representative: aSw Elizondo MD #### BMP #### [facility] [address] [place] [address] [employer] Sales Representative: Harjit Flores MD Urea nitrogen [Mass/Vol] 11 mg/dL Normal 6-20 [facility] Comment on above: Performed By: #### G LYHGB #### [address] [address] [employer] Sales Representative: Saw Elizondo MD #### BMP #### [facility] [address] [place] [address] [employer] Sales Representative: Harjit Flores MD CBCon 02-19-2023 Erythrocyte distribution width (RBC) [Ratio] 15.0 % High 11.8-14.4 [facility] Comment on above: Performed By: #### C BC #### [facility] [address] [place] [address] [employer] Sales Representative: Harjit Flores MD Hematocrit (Bld) [Volume fraction] 40.2 % Normal 36.3-47.1 [facility] Comment on above: Performed By: #### C BC #### [facility] [address] [place] [address] [employer] Sales Representative: Harjit Flores MD Hemoglobin (Bld) [Mass/Vol] 13.3 g/dL Normal 11.9-15.1 [facility] Comment on above: Performed By: #### C BC #### [facility] [address] [place] [address] [employer] Sales Representative: Harjit Flores MD MCH (RBC) [Entitic mass] 29.6 pg Normal 25.2-33.5 [facility] Comment on above: Performed By: #### C BC #### [facility] [address] [facility] [place] [address] [employer] Sales Representative: Harjit Flores MD MCHC (RBC) [Mass/Vol] 33.1 g/dL Normal 28.4-34.8 [facility] Comment on above: Performed By: #### C BC #### [facility] [address] [facility] [place] [address] [employer] Sales Representative: Harjit Flores MD MCV (RBC) [Entitic vol] 89.3 fL Normal 82.6-102.9 [facility] Comment on above: Performed By: #### C BC #### [facility] [place] [address] [employer] Sales Representative: Harjit Flores MD NRBC Automated 0.0 per 100 WBC Normal 0.0 [facility] Comment on above: Performed By: #### C BC #### [facility] [place] [address] [employer] Sales Representative: Harjit Flores MD Platelet mean volume (Bld) [Entitic vol] 9.9 fL Normal 8.1-13.5 [facility] Comment on above: Performed By: #### C BC #### [facility] [place] [address] [employer] Sales Representative: Harjit Flores MD Platelets (Bld) [#/Vol] 237 10*3/uL Normal 138-453 [facility] Comment on above: Performed By: #### C BC #### [facility] [place] [address] [employer] Sales Representative: Harjit Flores MD RBC (Bld) [#/Vol] 4.50 10*6/uL Normal 3.95-5.11 [facility] Comment on above: Performed By: #### C BC #### [facility] [address] [place] [address] [employer] Sales Representative: Harjit Flores MD WBC (Bld) [#/Vol] 9.6 10*3/uL Normal 3.5-11.3 [facility] Comment on above: Performed By: #### C BC #### [facility] [address] [place] [address] [employer] Sales Representative: Harjit Flores MD Hemoglobin A1Con 02-19-2023 Glucose [Mass/Vol] 123 mg/dL Normal [facility] Comment on above: Result Comment: The ADA and AACC recommend providing the estimated average glucose result to permit better patient understanding of their HBA1c result. Performed By: #### G LYHGB #### [facility] [address] [place] [address] [employer] Sales Representative: Saw Elizondo MD #### BMP #### [facility] [address] [place] [address] [employer] Sales Representative: Harjit Flores MD HbA1c (Bld) [Mass fraction] 5.9 % Normal 4.0-6.0 [facility] Comment on above: Performed By: #### G LYHGB #### [facility] [address] [place] [address] [employer] Sales Representative: Saw Elizondo MD #### BMP #### [facility] [address] [place] [address] [employer] Sales Representative: Harjit Flores MD Follow-Upon 01-12-2023 Follow-Up [id number] Jackie Mendoza 1975 [facility] Provider Department [place] 01/12/2023 [facility] Nila Heal Family History Problem Relation Age of Onset No Known Problems Father Family Status - Relation Status Age at Mother Notes: cancer brast ca, ovarian, skin, heart disease Father Level of Service:39093 ME OFFICE/OUTPATIENT ESTABLISHED MOD MDM 30-39 MIN Reason for Visit and Comments: Follow-up [127020] Normal [facility] DRUG SCREEN, UR-RFLEX CONFIR 01-06-2023 ALCOHOL, UR. Negative Normal (< 10 - Cutof) [facility] Comment on above: Order Comment: FACIL ITY: [facility] [id number] Performed By: #### D S-M+ #### [facility] [address] [facility], [address] AMPHETAMINES, UR. Negative Normal (< 500 - Cutof) [facility] Comment on above: Order Comment: FACIL ITY: [facility] [id number] Performed By: #### D S-M+ #### [facility] [address] [facility], [address] BARBITURATES, UR. Negative Normal (< 300 - Cutof) [facility] Comment on above: Order Comment: FACIL ITY: [facility] [id number] Performed By: #### D S-M+ #### [facility] [address] [facility], [address] BENZODIAZEPINES, UR. Positive High (< 100 - Cutof) [facility] Comment on above: Order Comment: FACIL ITY: [facility] [id number] Result Comment: AAKASH ODIAZEPINES URINE SCREEN = POSITIVE Specimen sent for confirmation testing for benzodiazepines - [facility] test # [id number] Performed By: #### D S-M+ #### [facility] [address] [facility], [address] COCAINE METAB. UR. Negative Normal (< 150 - Cutof) [facility] Comment on above: Order Comment: FACIL ITY: [facility] [id number] Performed By: #### D S-M+ #### [place] [facility] [address] [place], [address] CREAT, URINE 64.85 MG/DL Normal (20.00 - 320.0) [facility] Comment on above: Order Comment: FACIL ITY: [facility] [id number] Performed By: #### D S-M+ #### [facility] [facility] [address] [place], [address] FENTANYL, UR SCREEN Negative Normal (< 1.0 - Cutof) [facility] Comment on above: Order Comment: FACIL ITY: [facility] [id number] Performed By: #### D S-M+ #### [facility] [facility] [address] [place], [address] HEROIN METAB. UR. Negative Normal (< 10 - Cutof) [facility] Comment on above: Order Comment: FACIL ITY: [facility] [id number] Performed By: #### D S-M+ #### [facility] [facility] [address] [place], [address] METHADONE METAB. UR. Negative Normal (< 100 - Cutof) [facility] Comment on above: Order Comment: FACIL ITY: [facility] [id number] Performed By: #### D S-M+ #### [place] [facility] [address] [place], [address] OPIATES, UR. Negative Normal (< 100 - Cutof) [facility] [facility] Comment on above: Order Comment: FACIL ITY: [facility] [id number] Performed By: #### D S-M+ #### [facility] [facility] [address] [place], [address] OXYCODONE, UR. Negative Normal (< 100 - Cutof) [facility] Comment on above: Order Comment: FACIL ITY: [facility] [id number] Performed By: #### D S-M+ #### [place] [facility] [address] [place], [address] pH (U) 5.5 [pH] Normal (5.0 - 9.0) [facility] Comment on above: Order Comment: FACIL ITY: [facility] [id number] Performed By: #### D S-M+ #### [place] [facility] [address] [place], [address] PHENCYCLIDINE, UR. Negative Normal (< 25 - Cutof) [facility] Comment on above: Order Comment: FACIL ITY: [facility] [id number] Performed By: #### D S-M+ #### [place] [facility] [address] [place], [address] THC METABOLITE, UR. Positive High (< 20 - Cutof) [facility] Comment on above: Order Comment: FACIL ITY: [facility] [id number] Result Comment: THC METABOLITE URINE SCREEN = POSITIVE Specimen sent for confirmation testing for THC - [facility] test # [id number] Performed By: #### D S-M+ #### [place] [facility] [address] [place], [address] TRAMADOL, UR SCREEN Negative Normal (< 200 - Cutof) [facility] Comment on above: Order Comment: FACIL ITY: [facility] [id number] Result Comment: This drug testing is for medical treatment only. Analysis was performed as non-forensic testing and the results should be used only by healthcare providers to render diagnosis or treatment, or to monitor the progress of medical conditions. Performed By: #### D S-M+ #### [place] [facility] [address] [place], [address] GLYCOHEMOGLOBIN A1Con 2022 ADA RECOMMENDATION SEE BELOW Normal [facility] Comment on above: Result Comment: ADA RECOMMENDED LIMIT 4.0 - 6.0 ADA THERAPEUTIC TARGET < 7.0 ACTION SUGGESTED > 7.0 Performed By: #### D ATA1C #### [facility] [address] [address] [address] Brock Elias Glucose [Mass/Vol] 128 mg/dL Normal [facility] Comment on above: Performed By: #### D ATA1C #### [facility] [address] [address] [address] Brock Elias HbA1c (Bld) [Mass fraction] 6.1 % Normal 4.5-6.2 [facility] Comment on above: Performed By: #### D ATA1C #### [facility] [address] [place] [address] Dr. Brock Elias C-REACTIVE PROTEINon 023 C REACTIVE PROTEIN (MG/L) IN SER/PLAS 7.5 mg/L High 0.0-7.0 [facility] Comment on above: Performed By: #### L [id number] #### [facility] ([facility]) [address] [place] [address] CBC WITH AUTO DIFFERENTIALon 10-27-2022 Basophils (Bld) [#/Vol] 0.05 10*3/uL Normal 0.00-0.20 [facility] Comment on above: Performed By: #### L [id number] ####[facility] ([facility])[address] [place] [address] Basophils/100 WBC (Bld) 0.6 % Normal 0.0-1.0 [facility] Comment on above: Performed By: #### L [id number] ####[facility] ([facility])[address] [place] [address] Eosinophils (Bld) [#/Vol] 0.14 10*3/uL Normal 0.00-0.50 [facility] Comment on above: Performed By: #### L [id number] ####[facility] ([facility])[address] [place] [address] Eosinophils/100 WBC (Bld) 1.7 % Normal 0.0-6.0 [facility] Comment on above: Performed By: #### L [id number] ####[facility] ([facility])[address] [place] [address] Erythrocyte distribution width (RBC) [Ratio] 15.1 % High 11.5-15.0 [facility] Comment on above: Performed By: #### L [id number] ####[facility] ([facility])[address] [place] [address] ERYTHROCYTE MEAN CORPUSCULAR HEMOGLOBIN CONCENTRATION (G/DL) BY AUTOMATED 33.3 g/dL Normal 32.0-35.0 [facility] Comment on above: Performed By: #### L [id number] ####[facility] ([facility])[address] [place] [address] Hematocrit (Bld) [Volume fraction] 42.7 % Normal 36.0-48.0 [facility] Comment on above: Performed By: #### L [id number] ####[facility] [place] [address] Hemoglobin (Bld) [Mass/Vol] 14.2 g/dL Normal 12.0-15.0 [facility] Comment on above: Performed By: #### L [id number] ####[facility] [place] [address] Immature granulocytes (Bld) [#/Vol] 0.02 10*3/uL Normal 0.00-0.20 [facility] Comment on above: Performed By: #### L [id number] ####[facility] ([facility])[address] [place] [address] Immature granulocytes/100 WBC (Bld) 0.2 % Normal 0.0-1.0 [facility] Comment on above: Performed By: #### L [id number] ####[facility] ([facility])[address] [place] [address] Lymphocytes (Bld) [#/Vol] 2.07 10*3/uL Normal 1.20-4.00 [facility] Comment on above: Performed By: #### L [id number] ####[facility] ([facility])[address] [place] [address] Lymphocytes/100 WBC (Bld) 24.7 % Normal 20.0-45.0 [facility] Comment on above: Performed By: #### L [id number] ####[facility] ([facility])[address] [place] [address] MCH (RBC) [Entitic mass] 29.1 pg Normal 27.0-33.0 [facility] Comment on above: Performed By: #### L [id number] ####[facility] ([facility])[address] [place] [address] MCV (RBC) [Entitic vol] 87.5 fL Normal 82.0-98.0 [facility] Comment on above: Performed By: #### L [id number] ####[facility] [place] [address] Monocytes (Bld) [#/Vol] 0.52 10*3/uL Normal 0.10-1.00 [facility] Comment on above: Performed By: #### L [id number] ####[facility] ([facility])[address] [place] [address] Monocytes/100 WBC (Bld) 6.2 % Normal 5.0-12.0 [facility] Comment on above: Performed By: #### L [id number] ####[facility] ([facility])[address] [place] [address] Neutrophils (Bld) [#/Vol] 5.58 10*3/uL Normal 1.60-7.60 [facility] Comment on above: Performed By: #### L [id number] ####[facility] ([facility])[address] [place] [address] Neutrophils/100 WBC (Bld) 66.6 % Normal 40.0-72.0 [facility] Comment on above: Performed By: #### L [id number] ####[facility] ([facility])[address] [place] [address] NRBC (PER 100 WBCS) BY AUTOMATED COUNT 0.0 % Normal 0 [facility] Comment on above: Performed By: #### L [id number] ####[facility] [place] [address] PLATELETS (10*3/UL) IN BLOOD AUTOMATED COUNT 246 10*3/uL Normal 150-400 [facility] Comment on above: Performed By: #### L [id number] ####[facility] ([facility])[address] [place] [address] RBC (Bld) [#/Vol] 4.88 10*6/uL Normal 3.80-5.00 [facility] Comment on above: Performed By: #### L [id number] ####[facility] [place], [place] [address] WBC (Bld) [#/Vol] 8.38 10*3/uL Normal 4.00-10.60 [facility] Comment on above: Performed By: #### L [id number] ####[facility] [place] [address] Follow-Upon 10-27-2022 Follow-Up [id number] Jackie Mendoza 1975 F Date Provider Department [place] 10/27/2022 KIM MCDONNELL [facility] RHEUM Nila Heal Family History Problem Relation Age of Onset No Known Problems Father Family Status - Relation Status Age at Mother Notes: cancer brast ca, ovarian, skin, heart disease Father Level of Service:68506 ME OFFICE/OUTPATIENT ESTABLISHED MOD MDM 30-39 MIN (GC) Reason for Visit and Comments: Follow-up [233807] Normal [facility] HEPATIC FUNCTION PANELon Albumin [Mass/Vol] 4.3 g/dL Normal 3.5-5.7 [facility] Comment on above: Performed By: #### L [id number] ####[facility] [place] [address] ALP [Catalytic activity/Vol] 78 U/L Normal 34-104 [facility] Comment on above: Performed By: #### L [id number] ####[facility] ([facility])[address] [place] [address] ALT [Catalytic activity/Vol] 15 U/L Normal 7-52 [facility] Comment on above: Performed By: #### L [id number] ####[facility] [place] [address] AST [Catalytic activity/Vol] 14 U/L Normal 13-39 [facility] Comment on above: Performed By: #### L [id number] ####[facility] ([facility])[address] [place] [address] Bilirubin [Mass/Vol] 0.5 mg/dL Normal 0.3-1.0 [facility] Comment on above: Performed By: #### L [id number] ####[facility] ([facility])[address] [place] [address] Magnesium [Mass/Vol] 0.1 mg/dL Normal 0-0.2 [facility] Comment on above: Performed By: #### L [id number] ####[facility] ([facility])[address] [place] [address] Protein [Mass/Vol] 7.3 g/dL Normal 6.0-8.3 [facility] Comment on above: Performed By: #### L [id number] ####[facility] [place] [address] SEDIMENTATION RATEon 023 SEDIMENTATION RATE, ERYTHROCYTE 5 mm/hr Normal <=20 [facility] Comment on above: Performed By: #### L [id number] #### [facility] [address] [place] [address] DRUG SCREEN, UR-RFLEX CONFIR 10-06-2022 ALCOHOL, UR. Negative Normal (< 10 - Cutof) [facility] Comment on above: Order Comment: FACIL ITY: [facility] [id number] Performed By: #### D S-M+ #### [facility] [address] [place], [address] AMPHETAMINES, UR. Negative Normal (< 500 - Cutof) [facility] Comment on above: Order Comment: FACIL ITY: [facility] [id number] Performed By: #### Ari S-M+ #### [facility] [facility] [address] [place], [address] BARBITURATES, UR. Negative Normal (< 300 - Cutof) [facility] Comment on above: Order Comment: FACIL ITY: [facility] [id number] Performed By: #### Ari S-M+ #### [facility] [address] [place], [address] BENZODIAZEPINES, UR. Negative Normal (< 100 - Cutof) [facility] Comment on above: Order Comment: FACIL ITY: [facility] [id number] Performed By: #### Ari S-M+ #### [facility] [facility] [address] [place], [address] COCAINE METAB. UR. Negative Normal (< 150 - Cutof) [facility] Comment on above: Order Comment: FACIL ITY: [facility] [id number] Performed By: #### Ari S-M+ #### [facility] [facility] [address] [place], [address] CREAT, URINE 67.78 MG/DL Normal (20.00 - 320.0) [place] [facility] Comment on above: Order Comment: FACIL ITY: [facility] [id number] Performed By: #### Ari S-M+ #### [facility] [facility] [address] [place], [address] FENTANYL, UR SCREEN Negative Normal (< 1.0 - Cutof) [facility] Comment on above: Order Comment: FACIL ITY: [facility] [id number] Performed By: #### Ari S-M+ #### [place] [facility] [address] [place], [address] HEROIN METAB. UR. Negative Normal (< 10 - Cutof) [facility] Comment on above: Order Comment: FACIL ITY: [facility] [id number] Performed By: #### D S-M+ #### [place] [facility] [address] [place], [address] METHADONE METAB. UR. Negative Normal (< 100 - Cutof) [facility] Comment on above: Order Comment: FACIL ITY: [facility] [id number] Performed By: #### D S-M+ #### [place] [facility] [address] [place], [address] OPIATES, UR. Negative Normal (< 100 - Cutof) [facility] Comment on above: Order Comment: FACIL ITY: [facility] [id number] Performed By: #### D S-M+ #### [place] [facility] [address] [place], [address] OXYCODONE, UR. Negative Normal (< 100 - Cutof) [facility] Comment on above: Order Comment: FACIL ITY: [facility] [id number] Performed By: #### D S-M+ #### [facility] [facility] [address] [place], [address] pH (U) 6.0 [pH] Normal (5.0 - 9.0) [facility] Comment on above: Order Comment: FACIL ITY: [facility] [id number] Performed By: #### D S-M+ #### [place] [facility] [address] [place], [address] PHENCYCLIDINE, UR. Negative Normal (< 25 - Cutof) [facility] Comment on above: Order Comment: FACIL ITY: [facility] [id number] Performed By: #### D S-M+ #### [place] [facility] [address] [facility], [address] THC METABOLITE, UR. Positive High (< 20 - Cutof) [facility] Comment on above: Order Comment: FACIL ITY: [facility] [id number] Result Comment: THC METABOLITE URINE SCREEN = POSITIVE Specimen sent for confirmation testing for THC - [facility] test # [id number] Performed By: #### D S-M+ #### [place] [facility] [address] [facility], [address] TRAMADOL, UR SCREEN Negative Normal (< 200 - Cutof) [facility] Comment on above: Order Comment: FACIL ITY: [facility] [id number] Result Comment: This drug testing is for medical treatment only. Analysis was performed as non-forensic testing and the results should be used only by healthcare providers to render diagnosis or treatment, or to monitor the progress of medical conditions. Performed By: #### D S-M+ #### [place] [facility] [address] [facility], [address] [place] ALISA DOP LEG RTon 09-16-19 23 [...] WILFRIDO FORD Date: 2022-09-15 09:06 Normal [facility] CBC AUTO DIFFon 09-14-2022 BASO # 0.0 103/ul Normal 0.0-0.1 [facility] Comment on above: Performed By: #### C BC #### [facility] [address] [place] [address] [address] Brock Elias Basophils/100 WBC (Bld) 0.4 % Normal 0.2-2.0 [facility] Comment on above: Performed By: #### C BC #### [facility] [address] [place] [address] Dr. Brock Elias EO # 0.2 103/ul Normal 0.0-0.7 [facility] Comment on above: Performed By: #### C BC #### [facility] [address] [place] [address] Dr. Brock Elias Eosinophils/100 WBC (Bld) 2.1 % Normal 0.9-7.0 [facility] Comment on above: Performed By: #### C BC #### [facility] [address] [place] [address] Dr. Brock Elias Erythrocyte distribution width (RBC) [Ratio] 15.2 % Critically high 11.0-15.0 [facility] Comment on above: Performed By: #### C BC #### [facility] [address] [place] [address] Dr. Brock Elias Hematocrit (Bld) [Volume fraction] 40.0 % Normal 36.0-48.0 [facility] Comment on above: Performed By: #### C BC #### [facility] [address] [place] [address] Dr. Brock Elias Hemoglobin (Bld) [Mass/Vol] 13.4 g/dL Normal 12.0-16.0 [facility] Comment on above: Performed By: #### C BC #### [facility] [address] [place] [address] Dr. Brock Elias IG # 0.02 10e3/ul Normal 0.00-0.03 [facility] Comment on above: Performed By: #### C BC #### [facility] [address] [place] [address] Dr. Brock Elias IG % 0.3 % Normal 0.0-0.5 [facility] Comment on above: Performed By: #### C BC #### [facility] [address] [place] [address] Dr. Brock Elias LYMPH # 1.9 103/ul Normal 1.2-3.8 [facility] Comment on above: Performed By: #### C BC #### [facility] [address] [place] [address] Dr. Brock Elias Lymphocytes/100 WBC (Bld) 26.7 % Normal 20.5-60.0 [facility] Comment on above: Performed By: #### C BC #### [facility] [address] [place] [address] Dr. Brock Elias MANUAL DIFF REQ NO Normal [facility] Comment on above: Performed By: #### C BC #### [facility] [address] [place] [address] Dr. Brock Elias MCH (RBC) [Entitic mass] 28.6 pg Normal 26.7-34.0 [facility] Comment on above: Performed By: #### C BC #### [facility] [address] [place] [address] Dr. Brock Elias MCHC (RBC) [Mass/Vol] 33.5 g/dL Normal 29.9-35.2 [facility] Comment on above: Performed By: #### C BC #### [facility] [address] [place] [address] Dr. Brock Elias MCV (RBC) [Entitic vol] 85.5 fL Normal 81.0-99.0 [facility] Comment on above: Performed By: #### C BC #### [facility] [address] [place] [address] Dr. Brock Elias MONO # 0.4 103/ul Normal 0.3-0.8 [facility] Comment on above: Performed By: #### C BC #### [facility] [address] [place] [address] Dr. Brock Elias Monocytes/100 WBC (Bld) 5.3 % Normal 1.7-12.0 [facility] Comment on above: Performed By: #### C BC #### [facility] [address] [place] [address] Dr. Brock Elias NEUT # 4.6 103/ul Normal 1.4-6.5 [facility] Comment on above: Performed By: #### C BC #### [facility] [address] [place] [address] Dr. Brock Elias Neutrophils/100 WBC (Bld) 65.2 % Normal 43.0-75.0 [facility] Comment on above: Performed By: #### C BC #### [facility] [address] [place] [address] Dr. Brock Elias Platelet mean volume (Bld) [Entitic vol] 9.9 fL Normal 9.5-13.5 [facility] Comment on above: Performed By: #### C BC #### [facility] [address] [place] [address] Dr. Brock Elias PLT 225 103/ul Normal 150-450 [facility] Comment on above: Performed By: #### C BC #### [facility] [address] [place] [address] Dr. Brock Elias RBC 4.68 106/ul Normal 4.20-5.40 [facility] Comment on above: Performed By: #### C BC #### [facility] [address] [place] [address] Dr. Brock Elias WBC 7.0 103/ul Normal 4.0-11.0 [facility] Comment on above: Performed By: #### C BC #### [facility] [address] [place] [address] Dr. Brock Elias D-DIMERon 09-14-2022 D-DIMER 2.02 mg/L FEU Critically high <=0.59 [facility] Comment on above: Performed By: #### H IV12 #### [facility] [address] [place] [address] Dr. Brock Elias D-DIMER COMMENTS SEE BELOW Normal [facility] Comment on above: Result Comment: Incr eases [...] hospitalization. Performed By: #### H IV12 #### [facility] [address] [place] [address] Dr. Brock Elias LACTATE/LACTIC ACIDon 2022 Lactate [Moles/Vol] 0.9 mmol/L Normal 0.4-2.0 [facility] Comment on above: Performed By: #### L ACT #### [facility] [address] [place] [address] Dr. Brock Elias PROF CHEM 8 (BAS METB)on Anion gap [Moles/Vol] 8.7 mmol/L Normal [facility] Comment on above: Performed By: #### B MP #### [facility] [address] [place] [address] Dr. Brock Elias Calcium [Mass/Vol] 8.9 mg/dL Normal 8.5-10.1 [facility] Comment on above: Performed By: #### B MP #### [facility] [address] [place] [address] Dr. Brock Elias Chloride [Moles/Vol] 105 mmol/L Normal 98-107 [facility] Comment on above: Performed By: #### B MP #### [facility] [address] [place] [address] Dr. Brock Elias CO2 [Moles/Vol] 29.3 mmol/L Normal 21.0-32.0 [facility] Comment on above: Performed By: #### B MP #### [facility] [address] [place] [address] Dr. Brock Elias Creatinine [Mass/Vol] 0.81 mg/dL Normal 0.55-1.02 [facility] Comment on above: Performed By: #### B MP #### [facility] [address] [place] [address] Dr. Brock Elias EGFR-AF KITTITIAN >60 Normal >=60 [facility] Comment on above: Performed By: #### B MP #### [facility] [address] [place] [address] Dr. Brock Elias EGFR-NON AF KITTITIAN >60 Normal >=60 [facility] Comment on above: Performed By: #### B MP #### [facility] [address] [address] [address] Brock Elias Glucose [Mass/Vol] 106 mg/dL Normal 74-106 [facility] Comment on above: Performed By: #### B MP #### [facility] [address] [id number] Brock Elias Potassium [Moles/Vol] 4.0 mmol/L Normal 3.5-5.1 [facility] Comment on above: Performed By: #### B MP #### [facility] [address] [address] [address] Brock Elias Sodium [Moles/Vol] 139 mmol/L Normal 136-145 [facility] Comment on above: Performed By: #### B MP #### [facility] [address] [address] [address] Brock Elias Urea nitrogen [Mass/Vol] 11.0 mg/dL Normal 7.0-18.0 [facility] Comment on above: Performed By: #### B MP #### [facility] [address] [place] [address] Dr. Brock Elias Urea nitrogen/Creatinine [Mass ratio] 13.6 mg/mg Normal [facility] Comment on above: Performed By: #### B MP #### [facility] [address] [place] [address] Dr. Brock Elias HIV 1 AND 2 WITH REFLEXon HIV Screen 4th Generation wRfx Non-Reactive Normal Non Reactive [facility] Comment on above: Result Comment: HIV Negative HIV-1/HIV-2 antibodies and HIV-1 p24 antigen were NOT detected. There is no laboratory evidence of HIV infection. Performed By: #### H IV12 #### [facility] [address] [place] [address] Dr. Brock Elias XR ELBOW MARTHA MIN [...] by: GILL MORENO Date: 2022-08-13 10:[address] [facility] XR HAND MARTHA MIN 3Von 023 XR [...] by: GILL MORENO Date: 2022-08-13 10:[address] [facility] XR KNEE MARTHA 3 Von 08-12-2022 XR [...] MELISSA GATES Date: 2022-08-12 17:40 Normal [facility] XR WRIST MARTHA MIN 3 Von [...] MELISSA GATES Date: 2022-08-12 17:26 Normal [facility] LUCINDA EIA W/REFLEX 9 BIOMARKER Son 07-23-2022 LUCINDA Direct Negative Normal Negative [facility] Comment on above: Performed By: #### H IV12 #### [facility] [address] [place] [address] Dr. Brock Elias C-REACTIVE PROTEINS (HS)on 0 07-23-2022 C-Reactive Protein, Cardiac 4.28 mg/L Critically high 0.00-3.00 [facility] Comment on above: Result Comment: Rela tive Risk for Future Cardiovascular Event Low <1.00 Average 1.00 - 3.00 High >3.00 Performed By: #### C RPHS #### [facility] [address] [place] [address] Dr. Brock Elias CYCLIC CITRULLINATED PEPTIDE AB (CCP)on 07-23-2022 CCP Antibodies IgG/IgA 6 units Normal 0-19 [facility] Comment on above: Result Comment: Nega tive <20 Weak positive 20 - 39 Moderate positive 40 - 59 Strong positive >59 Performed By: #### R F #### [facility] [address] [place] [address] Dr. Brock Elias RHEUMATOID FACTORon 07-23-19 23 RA Latex Turbid. <10.0 Normal <14.0 [facility] Comment on above: Performed By: #### R F #### [facility] [address] [address] [address] Brock Elias GLYCOHEMOGLOBIN A1Con 2022 ADA RECOMMENDATION SEE BELOW Normal [facility] Comment on above: Result Comment: ADA RECOMMENDED LIMIT 4.0 - 6.0 ADA THERAPEUTIC TARGET < 7.0 ACTION SUGGESTED > 7.0 Performed By: #### C MP #### [facility] [address] [address] [address] Brock Elias Glucose [Mass/Vol] 126 mg/dL Normal [facility] Comment on above: Performed By: #### C MP #### [facility] [address] [place] [address] Dr. Brock Elias HbA1c (Bld) [Mass fraction] 6.0 % Normal 4.5-6.2 [facility] Comment on above: Performed By: #### C MP #### [facility] [address] [place] [address] Dr. Brock Elias PROF 14(COMP METB)on 023 Albumin [Mass/Vol] 3.9 g/dL Normal 3.4-5.0 [facility] Comment on above: Performed By: #### C MP #### [facility] [address] [place] [address] Dr. Brock Elias Albumin/Globulin [Mass ratio] 1.1 {ratio} Normal [facility] Comment on above: Performed By: #### C MP #### [facility] [address] [place] [address] Dr. Brock Elias ALP [Catalytic activity/Vol] 88 U/L Normal 46-116 [facility] Comment on above: Performed By: #### C MP #### [facility] [address] [place] [address] Dr. Brock Elias ALT [Catalytic activity/Vol] 28 U/L Normal 14-59 [facility] Comment on above: Performed By: #### C MP #### [facility] [address] [place] [address] Dr. Brock Elias Anion gap [Moles/Vol] 13.8 mmol/L Normal [facility] Comment on above: Performed By: #### C MP #### [facility] [address] [address] [address] Brock Elias AST [Catalytic activity/Vol] 31 U/L Normal 15-37 [facility] Comment on above: Performed By: #### C MP #### [facility] [address] [address] [address] Brock Elias Bilirubin [Mass/Vol] 0.6 mg/dL Normal 0.2-1.0 [facility] Comment on above: Performed By: #### C MP #### [facility] [address] [address] [address] Brock Elias Calcium [Mass/Vol] 8.9 mg/dL Normal 8.5-10.1 [facility] Comment on above: Performed By: #### C MP #### [facility] [address] [place] [address] Dr. Brock Elias Chloride [Moles/Vol] 104 mmol/L Normal 98-107 [facility] Comment on above: Performed By: #### C MP #### [facility] [address] [address] [address] Brock Elias CO2 [Moles/Vol] 28.5 mmol/L Normal 21.0-32.0 [facility] Comment on above: Performed By: #### C MP #### [facility] [address] [address] [address] Brock Elias Creatinine [Mass/Vol] 0.76 mg/dL Normal 0.55-1.02 [facility] Comment on above: Performed By: #### C MP #### [facility] [address] [address] [address] Brock Elias EGFR-AF KITTITIAN >60 Normal >=60 [facility] Comment on above: Performed By: #### C MP #### [facility] [address] [address] [address] Brock Elias EGFR-NON AF KITTITIAN >60 Normal >=60 [facility] Comment on above: Performed By: #### C MP #### [facility] [address] [address] [address] Brock Elias Globulin (S) [Mass/Vol] 3.7 g/dL Normal [facility] Comment on above: Performed By: #### C MP #### [facility] [address] [address] [address] Brock Elias Glucose [Mass/Vol] 107 mg/dL Critically high 74-106 T [facility] Comment on above: Performed By: #### C MP #### [facility] [address] [address] [address] Brock Elias Potassium [Moles/Vol] 4.3 mmol/L Normal 3.5-5.1 [facility] Comment on above: Performed By: #### C MP #### [facility] [address] [place] [address] Dr. Brock Elias Protein [Mass/Vol] 7.6 g/dL Normal 6.4-8.2 [facility] Comment on above: Performed By: #### C MP #### [facility] [address] [place] [address] Dr. Brock Elias Sodium [Moles/Vol] 142 mmol/L Normal 136-145 [facility] Comment on above: Performed By: #### C MP #### [facility] [address] [place] [address] Dr. Brock Elias Urea nitrogen [Mass/Vol] 15.0 mg/dL Normal 7.0-18.0 [facility] Comment on above: Performed By: #### C MP #### [facility] [address] [address] [address] Brock Elias Urea nitrogen/Creatinine [Mass ratio] 19.7 mg/mg Normal [facility] Comment on above: Performed By: #### C MP #### [facility] [address] [place] [address] Dr. Brock Elias SED RATE [facility] 2022 SED RATE 29 mm/hr Critically high <=20 [facility] Comment on above: Performed By: #### R F #### [facility] [address] [place] [address] Dr. Brock Elias PROF 14(COMP METB)on 023 Albumin [Mass/Vol] 3.6 g/dL Normal 3.4-5.0 [facility] Comment on above: Performed By: #### C MP #### [facility] [address] [place] [address] Dr. Brock Elias Albumin/Globulin [Mass ratio] 1.1 {ratio} Normal [facility] Comment on above: Performed By: #### C MP #### [facility] [address] [place] [address] Dr. Brock Elias ALP [Catalytic activity/Vol] 83 U/L Normal 46-116 [facility] Comment on above: Performed By: #### C MP #### [facility] [address] [place] [address] Dr. Brock Elias ALT [Catalytic activity/Vol] 22 U/L Normal 14-59 [facility] Comment on above: Performed By: #### C MP #### [facility] [address] [place] [address] Dr. Brock Elias Anion gap [Moles/Vol] 12.8 mmol/L Normal [facility] Comment on above: Performed By: #### C MP #### [facility] [address] [place] [address] Dr. Brock Elias AST [Catalytic activity/Vol] 17 U/L Normal 15-37 [facility] Comment on above: Performed By: #### C MP #### [facility] [address] [place] [address] Dr. Brock Elias Bilirubin [Mass/Vol] 0.5 mg/dL Normal 0.2-1.0 [facility] Comment on above: Performed By: #### C MP #### [facility] [address] [place] [address] Dr. Brock Elias Calcium [Mass/Vol] 8.5 mg/dL Normal 8.5-10.1 [facility] Comment on above: Performed By: #### C MP #### [facility] [address] [place] [address] Dr. Brock Elias Chloride [Moles/Vol] 104 mmol/L Normal 98-107 [facility] Comment on above: Performed By: #### C MP #### [facility] [address] [address] [address] Brock Elias CO2 [Moles/Vol] 26.3 mmol/L Normal 21.0-32.0 [facility] Comment on above: Performed By: #### C MP #### [facility] [address] [address] [address] Brock Elias Creatinine [Mass/Vol] 0.79 mg/dL Normal 0.55-1.02 [facility] Comment on above: Performed By: #### C MP #### [facility] [address] [place] [address] Dr. Brock Elias EGFR-AF KITTITIAN >60 Normal >=60 [facility] Comment on above: Performed By: #### C MP #### [facility] [address] [address] [address] Brock Elias EGFR-NON AF KITTITIAN >60 Normal >=60 [facility] Comment on above: Performed By: #### C MP #### [facility] [address] [address] [address] Brock Elias Globulin (S) [Mass/Vol] 3.3 g/dL Normal [facility] Comment on above: Performed By: #### C MP #### [facility] [address] [address] [address] Brock Elias Glucose [Mass/Vol] 153 mg/dL Critically high 74-106 [facility] Comment on above: Performed By: #### C MP #### [facility] [address] [place] [address] Dr. Brock Elias Potassium [Moles/Vol] 4.1 mmol/L Normal 3.5-5.1 [facility] Comment on above: Performed By: #### C MP #### [facility] [address] [address] [address] Brock Elias Protein [Mass/Vol] 6.9 g/dL Normal 6.4-8.2 [facility] Comment on above: Performed By: #### C MP #### [facility] [address] [place], [place] [address] Dr. Brock Elias Sodium [Moles/Vol] 139 mmol/L Normal 136-145 [facility] Comment on above: Performed By: #### C MP #### [facility] [address] [place], [place] [address] Dr. Brock Elias Urea nitrogen [Mass/Vol] 12.0 mg/dL Normal 7.0-18.0 [facility] Comment on above: Performed By: #### C MP #### [facility] [address] [place], [place] [address] Dr. Brock Elias Urea nitrogen/Creatinine [Mass ratio] 15.2 mg/mg Normal [facility] Comment on above: Performed By: #### C MP #### [facility] [address] [place], [place] [address] Dr. Brock Elias US VAC ASST BX BREAST RT W C LIPon 06-12-2022 US VAC ASST BX BREAST RT W CLIP Begin Addendum #1 COLLECTED DATE/TIME: 06/04/2022 08:21 EST Final Diagnosis Report for [facility] [place] ULTRASOUND GUIDED CORE BIOPSY RIGHT BREAST [...] after pathology results are available. Normal [facility] [place] [facility] MAMMO POST BIOPSY RIGHTon MAMMO POST BIOPSY RIGHT Patient: RADHA SANTACRUZ Exam Date: 06/04/2022 : 1975 Gender:F Ordering : DONNIE KAMINSKI SENIOR TRAINING SPECIALIST-C Admission #: [id number] Family : Order #: [id number] CLICK HERE TO VIEW EXAM RADIOLOGY REPORT [...] Moreno M.D. on 06/09/2022 at 13:[address] [facility] CNPNon 05-28-2022 CNPN Telephone (NCCAP) RADHA SANTACRUZ NEEL ([id number]) 1975 F Date Time Provider Department 05/28/22 CHANCE LANGLEY During your visit today, we recorded the following information about you: Bandar Laguna 05/28/2022 2:23 PM Signed Pt is being referred by [facility] dx Breast Ca. Per Karina Antunez [...] Status:Closed by BANDAR LAGUNA on 05/30/22 [facility] Aguilar MG MAMM RT DIAG FUon 05-28- 022 MG MAMM RT DIAG FU Patient: ONIEL SANTACRUZ Exam Date: 05/28/2022 : 1975 Gender:F Ordering : DONNIE KAMINSKI SENIOR TRAINING SPECIALIST-C Admission #: [id number] Family : Order #: [id number] CLICK HERE TO VIEW EXAM RADIOLOGY REPORT [...] breast cancer at age 38. LOCATION: [facility] BREAST COMPOSITION: Scattered areas fibroglandular density. [...] M.D. on 05/28/2022 at 12:33 Normal [facility] US BREAST RIGHT LIMITEDon US BREAST RIGHT LIMITED Patient: RADHA SANTACRUZ Exam Date: 05/28/2022 : 1975 Gender:F Ordering : DONNIE KAMINSKI SENIOR TRAINING SPECIALIST-C Admission #: [id number] Family : Order #: [id number] CLICK HERE TO VIEW EXAM RADIOLOGY REPORT [...] breast cancer at age 38. LOCATION: [facility] [place] [facility] BREAST COMPOSITION: Scattered areas fibroglandular density. [...] Moreno M.D. on 05/28/2022 at 12:[address] [facility] XR HAND MARTHA MIN 3Von 022 XR HAND MARTHA MIN 3V EXAM: XR HAND MARTHA IL N 3V HISTORY: Bilateral hand pain COMPARISON: None. TECHNIQUE: 3 views of each hand FINDINGS: No fracture, dislocation, subluxation or osseous lesion. Joint spaces are normal for patient's age. No visualized erosion or joint effusion. No soft tissue edema. IMPRESSION: Normal hand x-rays Electronically authenticated by: AGUSTIN ADAMSON Date: 2022-05-19 16:[address] [facility] XR LSPINE 2_3 VIEWSon 2021 XR LSPINE [...] by: AGUSTIN ADAMSON Date: 2022-05-19 16:29 Normal [facility] MAMM SCREEN 3D MARTHA CADon 04-29-2022 MG MAMM SCREEN 3D MARTHA CAD Patient: RADHA SANTACRUZ Exam Date: 04/29/2022 : 1975 Gender:F Ordering : DONNIE KAMINSKI SENIOR TRAINING SPECIALIST-C Admission #: [id number] Family : Order #: [id number] CLICK HERE TO VIEW EXAM RADIOLOGY REPORT [...] breast cancer at age 38. LOCATION: [facility] [place] [facility] BREAST COMPOSITION: Scattered areas fibroglandular density. [...] Stephenson MD on 04/30/2022 at 07:[address] [facility] Physician Referralon 10-25-2 022 Physician Referral [phone] [id number] 0CD:127 Normal [facility] Physician Referral [phone] [id number] 0CD:127 Normal [facility] CBC AUTO DIFFon 04-14-2022 BASO # 0.1 103/ul Normal 0.0-0.1 [facility] Comment on above: Performed By: #### C MP #### [facility] [address] [address] [address] Brock Elias Basophils/100 WBC (Bld) 0.8 % Normal 0.2-2.0 [facility] Comment on above: Performed By: #### C MP #### [facility] [address] [address] [address] Brock Elias EO # 0.2 103/ul Normal 0.0-0.7 [facility] Comment on above: Performed By: #### C MP #### [facility] [address] [place] [address] Dr. Brock Elias Eosinophils/100 WBC (Bld) 2.1 % Normal 0.9-7.0 [facility] Comment on above: Performed By: #### C MP #### [facility] [address] [place] [address] Dr. Brock Elias Erythrocyte distribution width (RBC) [Ratio] 14.0 % Normal 11.0-15.0 [facility] Comment on above: Performed By: #### C MP #### [facility] [address] [place] [address] Dr. Brock Elias Hematocrit (Bld) [Volume fraction] 39.6 % Normal 36.0-48.0 [facility] Comment on above: Performed By: #### C MP #### [facility] [address] [place] [address] Dr. Brock Elias Hemoglobin (Bld) [Mass/Vol] 12.6 g/dL Normal 12.0-16.0 [facility] Comment on above: Performed By: #### C MP #### [facility] [address] [place] [address] Dr. Brock Elias IG # 0.02 10e3/ul Normal 0.00-0.03 [facility] Comment on above: Performed By: #### C MP #### [facility] [address] [place] [address] Dr. Brock Elias IG % 0.2 % Normal 0.0-0.5 [facility] Comment on above: Performed By: #### C MP #### [facility] [address] [place] [address] Dr. Brock Elias LYMPH # 2.2 103/ul Normal 1.2-3.8 [facility] Comment on above: Performed By: #### C MP #### [facility] [address] [place] [address] Dr. Brock Elias Lymphocytes/100 WBC (Bld) 25.5 % Normal 20.5-60.0 [facility] Comment on above: Performed By: #### C MP #### [facility] [address] [place] [address] Dr. Brock Elias MANUAL DIFF REQ NO Normal [facility] Comment on above: Performed By: #### C MP #### [facility] [address] [place] [address] Dr. Brock Elias MCH (RBC) [Entitic mass] 28.0 pg Normal 26.7-34.0 [facility] Comment on above: Performed By: #### C MP #### [facility] [address] [place] [address] Dr. Brock Elias MCHC (RBC) [Mass/Vol] 31.8 g/dL Normal 29.9-35.2 [facility] [place] [facility] Comment on above: Performed By: #### C MP #### [facility] [address] [place] [address] Dr. Brock Elias MCV (RBC) [Entitic vol] 88.0 fL Normal 81.0-99.0 [facility] [place] [facility] Comment on above: Performed By: #### C MP #### [facility] [address] [place] [address] Dr. Brock Elias MONO # 0.4 103/ul Normal 0.3-0.8 [facility] [place] [facility] Comment on above: Performed By: #### C MP #### [facility] [address] [place] [address] Dr. Brock Elias Monocytes/100 WBC (Bld) 4.8 % Normal 1.7-12.0 [facility] Comment on above: Performed By: #### C MP #### [facility] [address] [place] [address] Dr. Brock Elias NEUT # 5.6 103/ul Normal 1.4-6.5 [facility] Comment on above: Performed By: #### C MP #### [facility] [address] [place] [address] Dr. Brock Elias Neutrophils/100 WBC (Bld) 66.6 % Normal 43.0-75.0 [facility] Comment on above: Performed By: #### C MP #### [facility] [address] [place] [address] Dr. Brock Elias Platelet mean volume (Bld) [Entitic vol] 9.9 fL Normal 9.5-13.5 [facility] Comment on above: Performed By: #### C MP #### [facility] [address] [place] [address] Dr. Brock Elias PLT 266 103/ul Normal 150-450 [facility] Comment on above: Performed By: #### C MP #### [facility] [address] [place] [address] Dr. Brock Elias RBC 4.50 106/ul Normal 4.20-5.40 [facility] Comment on above: Performed By: #### C MP #### [facility] [address] [place] [address] Dr. Brock Elias WBC 8.5 103/ul Normal 4.0-11.0 [facility] Comment on above: Performed By: #### C MP #### [facility] [address] [place] [address] Dr. Brock Elias GLYCOHEMOGLOBIN A1Con 2021 ADA RECOMMENDATION SEE BELOW Normal [facility] Comment on above: Result Comment: ADA RECOMMENDED LIMIT 4.0 - 6.0 ADA THERAPEUTIC TARGET < 7.0 ACTION SUGGESTED > 7.0 Performed By: #### A 1C #### [facility] [address] [address] [address] Brock Elias Glucose [Mass/Vol] 123 mg/dL Normal [facility] Comment on above: Performed By: #### A 1C #### [facility] [address] [address] [address] Brock Elias HbA1c (Bld) [Mass fraction] 5.9 % Normal 4.5-6.2 [facility] Comment on above: Performed By: #### A 1C #### [facility] [address] [address] [address] Brock Elias LIPID PROFILEon 04-14-2022 CHOL-HDL RATIO NORM SEE BELOW Normal [facility] Comment on above: Result Comment: 3.3 - 4.4 LOW RISK 4.4 - 7.1 AVERAGE RISK 7.1 - 11.0 MODERATE RISK >11.0 HIGH RISK Performed By: #### R F #### [facility] [address] [place] [address] Dr. Brock Elias Cholesterol [Mass/Vol] 133 mg/dL Normal <=200 [facility] Comment on above: Performed By: #### R F #### [facility] [address] [place] [address] Dr. Brock Elias Cholesterol in HDL [Mass/Vol] 43 mg/dL Normal 40-60 [facility] Comment on above: Performed By: #### R F #### [facility] [address] [address] [address] Brock Elias Cholesterol in LDL [Mass/Vol] 74.2 mg/dL Normal [facility] Comment on above: Performed By: #### R F #### [facility] [address] [address] [address] Brock Elias Cholesterol.total/Ch olesterol in HDL [Mass ratio] 3.1 {ratio} Normal [facility] Comment on above: Performed By: #### R F #### [facility] [address] [place] [address] Dr. Brock Elias HDL NORMAL > or = 60 mg/dl - LO W CARDIOVASCULAR RISK <40 mg/dl - HIGH CARDIOVASCULAR RISK Normal [facility] Comment on above: Performed By: #### R F #### [facility] [address] [address] [address] Brock Elias LDL CALC NORMAL SEE BELOW Normal [facility] Comment on above: Result Comment: <100 mg/dl OPTIMAL 100 - 129 mg/dl NEAR OR ABOVE OPTIMAL 130 - 159 mg/dl BORDERLINE HIGH 160 - 189 mg/dl HIGH >190 mg/dl VERY HIGH Performed By: #### R F #### [facility] [address] [place] [address] Dr. Brock Elias Triglyceride [Mass/Vol] 79 mg/dL Normal <=150 [facility] Comment on above: Performed By: #### R F #### [facility] [address] [place] [address] Dr. Brock Elias VLDL CALC 15.8 mg/dL Normal [facility] Comment on above: Performed By: #### R F #### [facility] [address] [place] [address] Dr. Brock Elias PROF 14(COMP METB)on 022 Albumin [Mass/Vol] 3.6 g/dL Normal 3.4-5.0 [facility] Comment on above: Performed By: #### H IV12 #### [facility] [address] [place] [address] Dr. Brock Elias Albumin/Globulin [Mass ratio] 0.9 {ratio} Normal [facility] Comment on above: Performed By: #### H IV12 #### [facility] [address] [place] [address] Dr. Brock Elias ALP [Catalytic activity/Vol] 83 U/L Normal 46-116 [facility] Comment on above: Performed By: #### H IV12 #### [facility] [address] [place] [address] Dr. Brock Elias ALT [Catalytic activity/Vol] 15 U/L Normal 14-59 [facility] Comment on above: Performed By: #### H IV12 #### [facility] [address] [place] [address] Dr. Brock Elias Anion gap [Moles/Vol] 9.5 mmol/L Normal [facility] Comment on above: Performed By: #### H IV12 #### [facility] [address] [address] [address] Brock Elias AST [Catalytic activity/Vol] 12 U/L Critically low 15-37 [facility] Comment on above: Performed By: #### H IV12 #### [facility] [address] [address] [address] Brock Elias Bilirubin [Mass/Vol] 0.4 mg/dL Normal 0.2-1.0 [facility] Comment on above: Performed By: #### H IV12 #### [facility] [address] [place] [address] Dr. Brock Elias Calcium [Mass/Vol] 8.9 mg/dL Normal 8.5-10.1 [facility] Comment on above: Performed By: #### H IV12 #### [facility] [address] [address] [address] Brock Elias Chloride [Moles/Vol] 105 mmol/L Normal 98-107 [facility] Comment on above: Performed By: #### H IV12 #### [facility] [address] [address] [address] Brock Elias CO2 [Moles/Vol] 28.5 mmol/L Normal 21.0-32.0 [facility] Comment on above: Performed By: #### H IV12 #### [facility] [address] [address] [address] Brock Elias Creatinine [Mass/Vol] 0.73 mg/dL Normal 0.55-1.02 [facility] Comment on above: Performed By: #### H IV12 #### [facility] [address] [place] [address] Dr. Brock Elias EGFR-AF KITTITIAN >60 Normal >=60 [facility] Comment on above: Performed By: #### H IV12 #### [facility] [address] [address] [address] Brock Elias EGFR-NON AF KITTITIAN >60 Normal >=60 [facility] Comment on above: Performed By: #### H IV12 #### [facility] [address] [address] [address] Brock Elias Globulin (S) [Mass/Vol] 3.8 g/dL Normal [facility] Comment on above: Performed By: #### H IV12 #### [facility] [address] [address] [address] Brock Elias Glucose [Mass/Vol] 99 mg/dL Normal 74-106 [facility] Comment on above: Performed By: #### H IV12 #### [facility] [address] [address] [address] Brock Elias Potassium [Moles/Vol] 4.0 mmol/L Normal 3.5-5.1 [facility] Comment on above: Performed By: #### H IV12 #### [facility] [address] [place] [address] Dr. Brock Elias Protein [Mass/Vol] 7.4 g/dL Normal 6.4-8.2 [facility] Comment on above: Performed By: #### H IV12 #### [facility] [address] [place] [address] Dr. Brock Elias Sodium [Moles/Vol] 139 mmol/L Normal 136-145 [facility] Comment on above: Performed By: #### H IV12 #### [facility] [address] [address] [address] Brock Elias Urea nitrogen [Mass/Vol] 12.0 mg/dL Normal 7.0-18.0 [facility] Comment on above: Performed By: #### H IV12 #### [facility] [address] [address] [address] Brock Elias Urea nitrogen/Creatinine [Mass ratio] 16.4 mg/mg Normal [facility] Comment on above: Performed By: #### H IV12 #### [facility] [address] [place] [address] Dr. Brock Elias TSHon 04-14-2022 TSH 1.033 uIU/mL Normal 0.358-3.740 [facility] Comment on above: Performed By: #### H IV12 #### [facility] [address] [place] [address] Dr. Brock Elias HEMOGLOBINon 04-10-2022 Hemoglobin (Bld) [Mass/Vol] 13.0 g/dL Normal 12.0-16.0 [facility] Comment on above: Performed By: #### C MP #### [facility] [id number] Brock Elias Operative Reporton 2 Operative Report MR#: [id number] [facility] Pt. Name: Radha Santacruz Room #: [id number] Discharge 03/01/2022 Date: Birthdate: 1975 OPERATIVE REPORT [...] point, (more content not included)... Normal [facility] POC GLUCOSE LABon 02-28-2022 Glucose [Mass/Vol] 94 mg/dL Normal 70-100 [facility] Comment on above: Performed By: #### 8 5499 #### [address] PORTABLE KNEE RIGHT 2 [facility] 02-28-[address]22 [address] K[address] RIGHT [address] [facility] Department of Radiology [address] [place] [id number] ======== Patient Name: RADHA SANTACRUZ : 1975 Sex: F Age: Race: White Pt. Location: OUTP Patient Status: O Ordered Date: 02/28/2022 4:45:00 PM Completed Date: 02/28/2022 05:42 PM Requesting Provider: TIM VILLELA Attending Provider: PETERSON BHATIA Report Copy To: Signs & Symptoms: Post OP History: Comments: Hardware Evaluation, in PACU Exam: PORTABLE KNEE RIGHT [address] [facility] ======== PORTABLE KNEE RIGHT 2 [facility] CLINICAL INFORMATION: Hardware Evaluation. Post OP. COMPARISON: 11/21/2021. IMPRESSION: * Long stem knee arthroplasty noted with no hardware complication. No fracture. Electronically signed: Joellen Sweeney. Transcribed by: [email or web address], User Resident: Electronically Signed by: JOELLEN SWEENEY @ 02/28/2022 05:[address] [facility] Comment on above: Order Comment: Hardw are Evaluation, in PACU MRI KNEE WO CONTRAST RIGHTon 12-10-2021 MRI KNEE WO CONTRAST RIGHT [facility] Department of Radiology [address] [place] [id number] ======== Patient Name: RADHA SANTACRUZ : 1975 Sex: F Age: Race: White Pt. Location: Patient Status: D Ordered Date: 11/21/2021 2:35:00 PM Completed Date: 12/10/2021 01:08 PM Requesting Provider: PETERSON BHATIA Attending Provider: PETERSON BHATIA Report Copy To: Signs & Symptoms: M25.561 Pain in right knee I10 History: [place], pt. has pain pump, ortho hardware back Comments: LEIJA AND NEPHEW PROTOCOL , Side: RIGHT Exam: MRI KNEE WO CONTRAST RIGHT ======== MRI KNEE WO CONTRAST RIGHT 12/10/2021 1:08 PM CLINICAL INDICATIONS: M25.561 Pain in right knee I10 TECHNOLOGIST COMMENTS: pre TKA leija and nephew protocol QUESTION FOR THE RADIOLOGIST: HELADIO AND NEPHCABRERA PROTOCOL , Side: RIGHT PROTOCOL: [...] above Electronically signed: Adelaida Dinh. Transcribed by: [email or web address], User Resident: Electronically Signed by: ADELAIDA DINH @ 12/11/2021 09:[address] [facility] Comment on above: Order Comment: ELIECER PROTOCOL , Side: RIGHT KNEE LEFT 3 Son 11-21-[address] [facility] Department of Radiology [address] [place] [id number] ======== Patient Name: RADHA SANTACRUZ : 1975 Sex: F Age: Race: White Pt. Location: Patient Status: D Ordered Date: 11/21/2021 12:30:00 PM Completed Date: 11/21/2021 01:35 PM Requesting Provider: PETERSON BHATIA Attending Provider: PETERSON BHATIA Report Copy To: CM LEE Signs & Symptoms: M25.561 Pain in right knee I10 History: [place] Comments: Views (X-RAY, KNEE): AP, Lateral, [place] Exam: KNEE LEFT [address] [facility] ======== KNEE LEFT 3 S 11/21/2021 1:35 PM CLINICAL INDICATIONS: M25.561 Pain in right knee I10 TECHNOLOGIST COMMENTS: Pt stated having bilateral knees pain, no known injury. QUESTION FOR THE RADIOLOGIST: Views (X-RAY, KNEE): AP, Lateral, [place] PROTOCOL: AP,Lateral and Tangential views were obtained. COMPARISON: 11/04/2014 FINDINGS: Severe joint space narrowing in the medial femorotibial compartment. Tricompartmental osteophyte formation. Small knee joint effusion. IMPRESSION: Tricompartmental osteoarthritis most prominent in the medial femorotibial compartment. Electronically signed: Elizabeth Landis. Transcribed by: [email or web address], User Resident: Electronically Signed by: ELIZABETH LANDIS @ 11/23/2021 03:[address] [facility] Comment on above: Order Comment: Views (X-RAY, KNEE): AP, Lateral, [place] KNEE RIGHT 3 [facility] [address] [facility] Department of Radiology [address] [place] [id number] ======== Patient Name: RADHA SANTACRUZ : 1975 Sex: F Age: Race: White Pt. Location: Patient Status: D Ordered Date: 11/21/2021 12:30:00 PM Completed Date: 11/21/2021 01:35 PM Requesting Provider: PETERSON BHATIA Attending Provider: PETERSON BHATIA Report Copy To: CM LEE Signs & Symptoms: M25.561 Pain in right knee I10 History: [place] Comments: Views (X-RAY, KNEE): AP, Lateral, [place] Exam: KNEE RIGHT [address] [facility] ======== KNEE RIGHT 3 VWS 11/21/2021 1:35 PM CLINICAL INDICATIONS: M25.561 Pain in right knee I10 TECHNOLOGIST COMMENTS: Pt stated having bilateral knees pain, no known injury. QUESTION FOR THE RADIOLOGIST: Views (X-RAY, KNEE): AP, Lateral, [place] PROTOCOL: AP,Lateral and Tangential views were obtained. COMPARISON: 02/18/2011 FINDINGS: Severe tricompartmental osteophyte formation and joint space narrowing. No fracture. No malalignment. Moderate knee joint effusion. IMPRESSION: Severe tricompartmental osteoarthritis. Electronically signed: Elizabeth Landis. Transcribed by: [email or web address], User Resident: Electronically Signed by: ELIZABETH LANDIS @ 11/23/2021 03:[address] [facility] Comment on above: Order Comment: Views (X-RAY, KNEE): AP, Lateral, [place] LOWER EXTREMITY JOINT SURVEY on 11-21-[address] SURVEY [facility] Department of Radiology [address] [place] [id number] ======== Patient Name: RADHA SANTACRUZ : [...] above. Electronically signed: Elizabeth Landis. Transcribed by: [email or web address], User Resident: Electronically Signed by: ELIZABETH LANDIS @ 11/23/2021 11:[address] [facility] Cytologyon 10-23-2021 Cytology (NOTE) INTERPRETATION Cervical material, (ThinPrep vial, Imaging-assisted review): Specimen Adequacy: Satisfactory for evaluation. - Endocervical/transform ation zone component present. Descriptive Diagnosis: Negative for intraepithelial lesion or malignancy. Stage Producer: IRINA Estrada(ASCP) Electronically Signed Out yaakov/10/29/2021 Source: A: Cervical material, (ThinPrep vial, Imaging-assisted review) Clinical History Z01.419 Routine payable representative exam without abnormal findings High risk HPV DNA testing is requested if the diagnosis is abnormal GYNECOLOGIC CYTOLOGY REPORT Patient Name: RADHA SANTACRUZ Med Rec: [id number] Path Number: [id number] aaTag [facility] ANATOMIC PATHOLOGY [address] [place] [address]. [place], [place] [address] Normal [facility] Comment on above: Performed By: #### P PPVP #### [facility] [address] [place] [address] [phone] [employer] Sales Representative: Saw Elizondo MD Surgical Pathologyon Surgical Pathology [...] SURGICAL PATHOLOGY CONSULTATION Patient Name: RADHA SANTACRUZ [facility] Rec: [id number] Path Number: [id number] [facility] PATHOLOGISTS [place] ANATOMIC PATHOLOGY [address] [place] [phone] [facility] Comment on above: Performed By: #### P PPVS #### [facility] [address] [place] [address] [phone] [employer] Sales Representative: Saw Elizondo MD Vital Signs Date Time Vital Sign Value Performing Clinician Facility 06-01-2023 16:00-0500 Body height Kayla Franklin Other [employer] Other 06-01-2023 16:00-0500 Body mass index (BMI) [Ratio] 51.84 kg/m2 Kayla Franklin Other [employer] Other 06-01-2023 16:00-0500 Body temperature 98.4 [degF] Kayla Franklin Other [employer] Other 06-01-2023 16:00-0500 Body weight 124.47 kg Kayla Franklin Other [employer] Other 06-01-2023 16:00-0500 Respiratory rate 18 /min Kayla Franklin Other [employer] Other 06-01-2023 16:00-0500 SaO2% (BldA) [Mass fraction] 93 % Kayla Franklin Other [employer] Other 03-05-2023 16:45-0400 Body temperature 97.2 [degF] Mohit Dejesus MD Work Phone: [facility] 03-05-2023 16:45-0400 Diastolic blood pressure 76 mm[Hg] Mohit Dejesus MD Work Phone: [facility] 03-05-2023 16:45-0400 Heart rate 75 /min Mohit Dejesus MD Work Phone: [facility] 03-05-2023 16:45-0400 Respiratory rate 16 /min Mohit Dejesus MD Work Phone: [facility] 03-05-2023 16:45-0400 SaO2% (BldA) [Mass fraction] 96 % Mohit Dejesus MD Work Phone: [facility] 03-05-2023 16:45-0400 Systolic blood pressure 141 mm[Hg] Mohit Dejesus MD Work Phone: [facility] 03-05-2023 12:57-0400 Body height 154.9 cm Mohit Dejesus MD Work Phone: [facility] 03-05-2023 12:57-0400 Body mass index (BMI) [Ratio] 49.32 kg/m2 Mohit Dejesus MD Work Phone: [facility] 03-05-2023 12:57-0400 Body weight 118.39 kg Mohit Dejesus MD Work Phone: [facility] Encounters Encounter Date Encounter Type Care Provider Facility Start: 09-29-2023 End: 09-30-2023 ambulatory CASANDRA [facility] Start: 09-08-2023 ambulatory WASH OPERATOR Casandra Fatima Braden ility:[facility] Start: 09-03-2023 End: 09-04-2023 ambulatory [facility] Start: 09-03-2023 End: 09-03-2023 ambulatory [facility] Start: 08-26-2023 Telephone encounter Fatmata Barger CMA [facility] Start: 08-25-2023 End: 08-25-[address] [facility] Start: 08-24-2023 End: 08-24-2023 ambulatory ALIS MENDEZ Not Available Start: 08-14-2023 End: 08-15-[address] [facility] Start: 07-30-2023 End: 07-30-2023 ambulatory GURJITPORTER [facility] Start: 07-27-2023 End: 07-27-2023 ambulatory MEDINA Annika [facility] Start: 06-01-2023 End: 06-01-2023 ambulatory Kaylabashir Reid Other [employer] Other Start: 06-01-2023 Office outpatient vi sit 15 minutes Kayla Franklin [facility] Start: 05-25-2023 End: 05-25-2023 ambulatory ADELAIDA SUBRAMANIAN Not Available Start: 04-27-2023 End: 04-27-[address] [facility] Start: 03-05-2023 End: 03-05-[address] [facility] Start: 03-05-2023 End: 03-05-2023 Subsequent hospital visit by physician Mohit Dejesus MD Work Phone: [facility] Start: 02-19-2023 End: 02-24-2023 ambulatory MOHIT [facility] Start: 01-12-2023 End: 01-12-2023 ambulatory [facility] Start: 10-28-2022 End: 10-29-2022 ambulatory DONNIE SHAMMO Facility:[facility] Start: 10-27-2022 End: 10-27-2022 ambulatory [facility] Start: 10-09-2022 ambulatory DONNIE SHAMMO Facility:[facility] 1 Start: 09-15-2022 End: 09-16-2022 ambulatory DONNIE SHAMMO Facility:[facility] Start: 09-14-2022 End: 09-14-2022 ambulatory DONNIE SHAMMO Facility:[facility] Start: 08-13-2022 ambulatory DONNIE SHAMMO Facility:[facility] 1 Start: 08-12-2022 End: 08-13-2022 ambulatory DONNIE SHAMMO Facility:[facility] Start: 07-22-2022 End: 07-23-2022 ambulatory DONNIE SHAMMO Facility:[facility] Start: 07-11-2022 End: 07-12-2022 ambulatory DONNIE SHAMMO Facility:[facility] Start: 06-10-2022 Chart abstracting Jarad hemphill MD Work Phone: Hematology/Oncology Start: 06-04-2022 End: 06-04-2022 ambulatory DONNIE SHAMMO Facility:[facility] Start: 05-28-2022 Telephone encounter [facility] Comment on above: Appointment Start: 05-28-2022 End: 05-29-2022 ambulatory DONNIE SHAMMO Facility:[facility] Start: 05-19-2022 End: 05-20-2022 ambulatory DONNIE SHAMMO Facility:[facility] Start: 05-07-2022 ambulatory Rick R BEL Facility :[facility] [place] Start: 04-29-2022 End: 04-30-2022 ambulatory DONNIE SHAMMO Facility:[facility] Start: 04-29-2022 ambulatory DONNIE SHAMMO Facility:[facility] Start: 04-20-2022 Encounter for genera l adult medical examination without abnormal findings DONNIE SHAMMO [facility] Start: 04-14-2022 ambulatory DONNIE SHAMMO Facility:[facility] Start: 04-14-2022 End: 04-15-2022 ambulatory DONNIE SHAMMO Facility: Start: 04-14-2022 End: 04-15-2022 Encounter for general adult medical examination without abnormal findings DONNIE SHAMMO Facility: Start: 04-10-2022 End: 04-11-2022 ambulatory DONNIE SHAMMO Facility: Start: 02-28-2022 End: 03-01-2022 ambulatory Peterson Jannette Facility:[facility] Start: 01-02-2022 End: 01-02-2022 Subsequent hospital visit by physician Kulwant Arenas MD Work Phone: [facility] Comment on above: No Show Start: 12-10-2021 End: 12-11-2021 ambulatory Peterson Jannette Facility:[facility] Start: 11-21-2021 End: 11-22-2021 ambulatory Peterson Jannette Facility:[facility] Start: 10-23-2021 End: 10-24-2021 ambulatory KULWANT ARENAS [facility] Start: 10-23-2021 End: 10-23-2021 Patient encounter procedure [facility] Start: 10-23-2021 End: 10-23-2021 Subsequent hospital [...] Start: 08-08-2026 Lipid panel Lipids [facility] Start: 10-23-2024 Screening for malign [facility] Start: 03-31-2024 Adult BMI Screening Adult BMI Screen ing [facility] Start: 03-31-2024 Tobacco Screening Tobacco Screening [facility] Start: 02-20-2024 Hemoglobin A1c measurement A1C test (Diabetic or Prediabetic) [facility] Start: 08-27-2023 End: 08-27-2023 Patient encounter procedure 08/27/2023 12:00 PM EST Office Visit [facility] [address] [place] [address] Tram Hahn MD [address] [place] [address] [facility] Start: 2023 Administration of varicella zoster vaccine Zoster (Shingles) Vaccine (1 of 2) [facility] Start: 03-05-2023 End: 03-05-2023 Impltj/rplcmt ithcl/edrl drug nfs prgrbl pump PAIN PUMP INSERTION REMOVAL Post laminectomy syndrome 03/05/2023 2:52 PM EDT [facility] Start: 02-20-2023 Influenza vaccination Influenza Vacc ine [facility] Start: 01-20-2023 Influenza vaccination Flu vaccine (# 1) [facility] Start: 10-14-2022 Creatinine measurement Creatinine [facility] Start: 10-14-2022 Potassium [Moles/vol ume] in Serum or Plasma Potassium [facility] Start: 02-20-2022 Influenza vaccination [facility] Start: 01-08-2022 End: 01-08-2022 Admission to same day surgery center 01/08/2022 Surgery IP Unit Kulwant Arenas MD [address] [place] [address] DILATATION AND CURETTAGE HYSTEROSCOPY CAUTERY ABLATION-NOVASURE [facility] Comment on above: DILATATION AND CURET TAGE HYSTEROSCOPY CAUTERY ABLATION-NOVASURE Start: 01-08-2022 End: 01-08-2022 Hysteroscopy endometrial ablation DILATATION AND CURETTAGE HYSTEROSCOPY CAUTERY ABLATION DYSFUNCTIONAL UTERINE BLEEDING 01/08/2022 8:50 AM EDT [facility] Start: 01-08-2022 Subsequent hospital visit by physician 01/08/2022 Hospital Encounter IP Unit Kulwant Arenas MD [address] [place] [address] [facility] Start: 11-01-2021 End: 11-01-2021 Patient encounter procedure 11/01/2021 Office Visit Obstetrics and Gynecology Kulwant Arenas MD [address] [place], [place] [id number] [facility] Start: 11-01-2021 End: 11-01-2021 Professional / ancillary services management 11/01/2021 Ancillary Procedure Obstetrics and Gynecology [facility] Start: 06-22-2021 DEPRESSION ASSESSMENT DEPRESSION ASS ESSMENT [facility] Start: 2018 COLOGUARD (FIT-DNA) COLOGUARD (FIT-D NA) [facility] Start: 2018 Colonoscopy COLONOSCOPY [facility] Start: 2018 COLORECTAL CANCER SCREENING COLORECTAL CANCER SCREENING [facility] Start: [address] COLONOGRAPHY [facility] Start: 2018 DIABETES SCREEN DIABETES SCREEN [facility] Start: 2018 FECAL OCCULT BLOOD FECAL OCCULT BLOO D [facility] Start: 2018 LIPID SCREEN LIPID SCREEN [facility] Start: 2018 Screening for malign ant neoplasm of colon [facility] Start: 2018 SIGMOIDOSCOPY SIGMOIDOSCOPY [facility] Start: 2013 Mammography MAMMOGRAM [facility] Start: 2013 Screening for malign ant neoplasm of breast Breast cancer screen [facility] Start: 2008 Diabetes screen Diabetes screen [facility] Start: 2003 HPV TESTING HPV TESTING [facility] Start: 2003 Screening for malign ant neoplasm of cervix [facility] Start: 1994 PAP TESTING PAP TESTING [facility] Start: 1994 Screening for malign ant neoplasm of cervix Pap smear [facility] Start: 1992 DTaP,Tdap and Td Vaccines (1 - Tdap) DTaP,Tdap and Td Vaccines (1 - Tdap) [facility] [employer] [facility] Start: 1992 DTaP/Tdap/Td vaccine (1 - Tdap) DTaP/Tdap/Td vaccine (1 - Tdap) [facility] Start: 1992 Urine microalbumin profile DTAP,TDAP,TD (1 - Tdap) [facility] Start: 1991 Adult BMI Follow Up Plan Adult BMI Follow Up Plan [facility] Start: 1991 Hepatitis C screening Hepatitis C [facility] Start: 1991 HEPATITIS C SCREENING HEPATITIS C [facility] Start: 1991 HIV SCREENING HIV SCREENING [facility] Start: 1988 HIV screening HIV screen [facility] Start: 1985 Depression Screen Depression Screen [facility] Start: 1985 Depression Screening Depression Scre ening [facility] Start: 1983 Lipid panel Lipids [facility] Start: 1979 Pneumococcal 0-64 ye ars Vaccine (1 - PCV) Pneumococcal 0-64 years Vaccine (1 - PCV) [facility] Start: 1978 COVID-19 Vaccine (1) COVID-19 Vaccin e (1) [facility] Start: 01-02-1974 COVID-19 Vaccine (#1) COVID-19 Vacci ne (#1) [facility] Start: 1973 HEPATITIS B (1 of 3 - 3-dose series) HEPATITIS B (1 of 3 - 3-dose series) [facility] Start: 1973 Hepatitis B vaccine (1 of 3 - 3-dose series) Hepatitis B vaccine (1 of 3 - 3-dose series) [facility] Start: 1973 Tobacco Counseling Tobacco Counselin g [facility] End: 03-06-2023 Blood glucose - POCT Blood glucose - POCT Point of Care Testing Routine One Time for 1 Occurrences starting 03/06/2023 until 03/06/2023 [facility] Comment on above: One Time for 1 Occur rences starting 03/06/2023 until 03/06/2023 End: 10-23-2021 Cytopathology procedure, preparation of smear, genital source PAP SMEAR Lab Routine Women's annual routine gynecological examination 1 Occurrences starting 10/23/2021 until 10/23/2021 [facility] [employer] Work Phone: Comment on above: 1 Occurrences starti ng 10/23/2021 until 10/23/2021 End: 03-05-2023 INITIATE PACU OXYGEN THERAPY PROTOCOL Initiate PACU Oxygen Therapy Protocol Respiratory Care Routine Continuous until discontinued starting 03/05/2023 [employer] Phone: Comment on above: Continuous until dis continued starting 03/05/2023 Oxygen therapy [[facility] Data Set] Initiate Oxygen Therapy Protocol Respiratory Care Routine As Needed until discontinued starting 03/05/2023 [employer] Phone: Comment on above: As Needed until disc ontinued starting 03/05/2023 End: 03-06-2023 , urine , urine Lab Routine Tomorrow AM for 1 Occurrences starting 03/06/2023 until 03/06/2023 [facility] Comment on above: Tomorrow AM for 1 Oc currences starting 03/06/2023 until 03/06/2023 End: 10-23-2021 Surgical Pathology Surgical Pathology Lab Routine Irregular menstrual bleeding 1 Occurrences starting 10/23/2021 until 10/23/2021 [employer] Phone: Comment on above: 1 Occurrences starti ng 10/23/2021 until 10/23/2021 End: 10-23-2021 SURGICAL PATHOLOGY REPORT SURGICAL PATHOLOGY REPORT Lab Routine Once for 1 Occurrences starting 10/23/2021 until 10/23/2021 [employer] Phone: Comment on above: Once for 1 Occurrenc es starting 10/23/2021 until 10/23/2021 Aguilar Oscari c Payers Date Payer Category Payer Medicaid MEDICAID [facility] MED[facility] [id number] 2021-Present [phone] [address] [place] [address] Medicaid [id number] 2013 Medicare [id number] [id number] 1975 Unknown [id number] 2.16.840.1.935223.3.579.2.173 1975 Unknown [id number] 2.16.840.1.942102.3.579.2.647 1975 Unknown [id number] 2.16.840.1.836165.3.579.2.647 1975 Unknown [id number] 2.16.840.1.009757.3.579.2.647 1975 Unknown [id number] 2.16.840.1.144155.3.579.2.727 1975 Unknown [id number] 2.16.840.1.106861.3.579.2.727 1975 Unknown [id number] 2.16.840.1.943995.3.579.2.593 1975 Unknown [id number] 2.16.840.1.535196.3.579.2.593 1973 Unknown [id number] 2.16.840.1.949012.3.579.2.593 1973 Unknown [id number] 2.16.840.1.471624.3.579.2.593 1973 Unknown [id number] 2.16.840.1.603586.3.579.2.593 1973 Unknown [id number] 2.16.840.1.591247.3.579.2.593 1973 Unknown [id number] 2.16.840.1.403293.3.579.2.593 1973 Unknown [id number] 2.16.840.1.017708.3.579.2.593 1973 Unknown [id number] 2.16.840.1.225856.3.579.2.593 1973 Unknown [id number] 2.16.840.1.174137.3.579.2.593 1973 Unknown [id number] 2.16.840.1.596607.3.579.2.593 1973 Unknown [id number] 2.16.840.1.351973.3.579.2.593 1973 Unknown [id number] 2.16.840.1.562995.3.579.2.593 1973 Unknown [id number] 2.16.840.1.371781.3.579.2.593 1973 Unknown [id number] 2.16.840.1.124172.3.579.2.177 1973 Unknown [id number] 2.16.840.1.432906.3.579.2.177 1973 Unknown [id number] 2.16.840.1.176148.3.579.2.1259 1973 Unknown [id number] 2.16.840.1.473877.3.579.2.1259 1959 Medicaid [id number] 1.2.840.116185.1.13.239.2.7.3.6 [id number] 1959 Medicare [id number] 1.2.840.561732.1.13.239.2.7.3.6 [id number] 1959 Self-pay Unknown [id number] 2.16.840.1.865637.3.579.2.593 Social History Date Type Detail Facility Start: 10-23-2021 End: 03-31-2023 Tobacco smoking status ORIS Smokes tobacco daily [employer] Phone: History of tobacco use Cigarette Smoker [employer] Phone: Start: 08-02-2020 End: 10-23-2021 Cigarettes smoked current (pack per day) - Reported 1.5 [employer] Phone: Start: 10-23-2021 End: 03-31-2023 Tobacco use and exposure Smokeless tobacco non-user [employer] Phone: Start: 10-23-2021 End: 11-01-2021 Alcohol intake Ex-drinker (finding) [employer] Phone: Start: 1975 Sex Assigned At Not on file [employer] Phone: Start: 02-19-2017 Tobacco smoking stat us NHIS Occasional tobacco smoker [facility] Start: 03-11-2017 End: 06-10-2022 Alcohol intake Current non-drinker of alcohol (finding) [facility] Start: 02-19-2017 End: 06-10-2022 Tobacco Comment 23 cigarettes to 2 pks per day [facility] History of tobacco use Passive smoker [facility] Start: 03-05-2023 End: 03-31-2023 Alcohol intake Current drinker of alcohol (finding) [facility] [employer] Start: 08-02-2020 End: 02-19-2023 [facility] Start: 02-19-2023 Alcohol Comment very rare- may be twice a year [facility] Start: 10-29-2021 Alcohol Comment rare [facility] [email or web address] [facility] Medical Equipment Procedure Code Equipment Code Equipment Origin al Text Equipment Identifier Dates Kit Catheter Rev Seg W Attch Sutureless Fabric Stretcher Conn 2 Cllt Rul - [id number] Start: 03-05-2023 Clinical Notes 01-02-2022 to 09-09-2023 Telephone Encounter - Fatmata Barger [facility] - 08/26/2023 9:55 AM ESTTelephone Encounter - Fatmata Barger CMA - 08/26/2023 9:55 AM EST Note Date & Type Note Facility 09-09-2023 Note Pre op risk Stratifi cation RCRI= 2 points Class III Risk 10.1 % 30-day risk of , [place], or cardiac arrest From a cardiac perspective pt may proceed with surgery, she is a low risk for a moderate risk surgery. Please monitor hemodynamics carefully and prevent any major fluid shifts. Recent echocardiogram- 09/07/23 at [facility]- Normal LVSF, EF 55%, RV mildly dilated with normal systolic function. No acute concerns in light recent BNP normal on 09/07/23 Recent ECG Brittney Betts [facility] Cardiology Available 7a-5pm via [employer] Pager [phone] [facility] 09-03-2023 Note SUBJECTIVE: Chief complaint: Left leg [...] CHF (congestive heart failure), NYHA class I ([facility]) Chronic mental illness COPD (chronic obstructive pulmonary disease) ([facility]) Dyslipidemia Heart attack ([facility]) Hypertension Neuropathy Past Surgical History: Procedure Laterality [...] in the morning (more content not included)... [facility] 08-26-2023 Miscellaneous Notes RADHA CHAPMAN PT WANTS TO CANCEL APPT SCHEDULED FOR 08/27/2023. PHONED PT AND LM ON TO CONTACT OFFICE IF SHE DOES INDEED WANT TO CANCEL AND RESCHEDULE THIS APPT. documented in this encounter [facility] 08-26-2023 Telephone encounter Note RADHA CHAPMAN PT WANTS TO CANCEL APPT SCHEDULED FOR 08/27/2023. PHONED PT AND LM ON TO CONTACT OFFICE IF SHE DOES INDEED WANT TO CANCEL AND RESCHEDULE THIS APPT. [facility] 08-25-2023 Note [facility] II Continue GDMT- lasix 40 mg daily, and aldactone-- Diuretic therapy Monitor daily weights, I&O, fluid restriction 1.5-2L/day, renal function and electrolytes- [facility] 08-25-2023 Note Hypertension is well controlled Continue lisinopril, toprol, aldactone [facility] 08-25-2023 Note Recommended smoking cessation, she is starting chantix for smoking cessation as prescribed from DR Phan [facility] 08-25-2023 Note [facility] Order echocardiogram to assess cardiac function, RV size and function, Rt sided pressures, and valvular function [facility] 08-25-2023 Note New patient here to establish care. She was seen by [facility] cardiology in Mar 2023. States she has hx of [place] years ago in [place], but denies stents. Has hx of CHF, with [facility]. C/o SOB and fatigue. Has had [...] All other systems reviewed and are negative. [facility] 08-25-2023 Note [facility] CARDIOLOGY PROGR ESS NOTE HPI: Radha Mendoza is a 48 y.o. female here as new pt to establish care. HPI 47-year-old female with history of Chronic heart failure with preserved ejection fraction, morbid obesity, hypertension, dyslipidemia, history of chronic tobacco abuse, angiographically normal coronary arteries. New patient here to establish care. She was seen by [facility] cardiology in Mar 2023. States she has hx of [place] years ago in [place], but denies stents. Has hx of CHF, with last echo being done in Jul 2021 at [facility]. C/o SOB and fatigue. Has had [...] Past Medical History: Diagnosis Date Angina pectoris ([facility]) Bipolar disorder, unspecified ([facility]) Cardiomyopathy CHF (congestive heart failure) ([facility] Chronic back pain COPD (chronic obstructive pulmonary disease) ([facility]) Edema Hypertension Major depressive disorder Migraine headache Morbid obesity ([facility]) Nausea & vomiting Nicotine dependence, cigarettes, uncomplicated [...] normal. Mouth/Throat: Mouth (more content not included)... [facility] 07-30-2023 Note Patient ID: Radha Mendoza is a 48 y.o. female. Therapeutic injection carpal tunnel Date/Time: 07/30/2023 2:38 PM Performed by: Medina Montes MD Authorized by: Medina Montes MD Consent: Consent obtained: Verbal Consent given by: Patient Risks, benefits, and alternatives were discussed: yes Risks discussed: Bleeding and incomplete drainage Alternatives discussed: No treatment [place] protocol: Procedure explained and questions answered to [...] Procedure completion: Tolerated well, no immediate complications [facility] 07-30-2023 Note Attestation signed by Medina [...] COPD/CESARIO on CPAP, tobacco dependence, history of IL, CHF, PTSD, bipolar, anxiety and morbid obesity. [...] migraine headaches, COPD/CESARIO on CPAP, history of IL, CHF, PTSD, bipolar, anxiety and morbid obesity presenting for routine follow up. Seronegative rheumatoid arthritis Long-term use of methotrexate Medication regimen: Methotrexate 25 mg (10 tabs of 2.5 mg) weekly, folate supplementation. *Worsened disease with DAS28 (more content not included)... [facility] 07-27-2023 Note Attestation signed by Medina [...] migraine headaches, COPD/CESARIO on CPAP, history of IL, CHF, PTSD, bipolar, anxiety and morbid obesity [...] migraine headaches, COPD/CESARIO on CPAP, history of IL, CHF, PTSD, bipolar, anxiety and morbid obesity [...] past 36 hour(s)). No follow-ups on file. [facility] 06-01-2023 Evaluation note Encounter Date Diagnosis [...] your primary care provider in 3-5 days. [employer] Other 11-06-2023 Note Attestation signed by Medina [...] migraine headaches, COPD/CESARIO on CPAP, history of IL, CHF, PTSD, bipolar, anxiety and morbid obesity [...] migraine headaches, COPD/CESARIO on CPAP, history of IL, CHF, PTSD, bipolar, anxiety and morbid obesity [...] Garcia MD Rheumatology Fellow (more content not included)...[facility]09-14-2023 Hospital Discharge instructions* Discharge Instructions* Nichelle [...] saturates the bandage [facility] Attestation signed by Medina Montes [...] migraine headaches, COPD/CESARIO on CPAP, history of IL, CHF, PTSD, bipolar, anxiety and morbid obesity [...] migraine headaches, COPD/CESARIO on CPAP, history of IL, CHF, PTSD, bipolar, anxiety and morbid obesity [...] Patient was seen wi (more content not included)...[facility]05-08-2023 Note Attestation signed by Medina Montes [...] migraine headaches, COPD/CESARIO on CPAP, history of IL, CHF, PTSD, bipolar, anxiety and morbid obesity [...] migraine headaches, COPD/CESARIO on CPAP, history of IL, CHF, PTSD, bipolar, anxiety and morbid obesity [...] RTC in 2 allie (more content not included)...[facility] 08-13-2022 NotePROCEDURE: XR HIPS MARTHA 5V W PELVIS HISTORY: Joint pain COMPARISON: None. FINDINGS: BONES:No fracture, acute abnormality, or significant arthropathy. SOFT TISSUES:No visible soft tissue swelling. EFFUSION:None visible. OTHER: Mechanical fusion and degenerative changes of lower lumbar spine. IMPRESSION: 1. No acute bone abnormality or significant degenerative changes of the hip joints. Electronically authenticated by: GILL MORENO Date: 2022-08-13 10:48[facility]12-07-2022 Miscellaneous Notes* Telephone Encounter - Bandar Romanoheladio - 05/28/2022 2:21 PM EST Pt is being referred by [facility] dx Breast Ca. Per Karina Antunez schedule new pt consult once we have a bxdate. They will call us when it is scheduled. [facility] History of Present illness Narrative* Katy Guo RN - 01/02/2022 9:00 AM EDT Patient did not show for appointment at 9am. Left message to call to reschedule. Dr. Arenas office notified. [facility] [employer] Phone: evaluation note* Diagnosis Irregular menstrual bleeding Irregular menstrual cycle Women's annual routine gynecological examination documented in this encounter [employer] Phone: History general Narrative - Reported* Type [...] pump battery change Hospitalization History see above [employer] Other InstructionsNot on filedocumented in this encounter [employer] Summary Purpose Family History No Family [...] Care Teams (unrecognized sec tion and content) Student Success Advisor Relationship Specialty Start Date End Date Wally Ghosh MD [address] [place] [address] PCP - General 11/06/21 Student Success Advisor Relationship Specialty Start Date End Date Mingo Thapa [address] [facility] [address] [place] [address] PCP - General Family Medicine 02/19/17 Student Success Advisor Relationship Specialty Start Date End Date Mingo Thapa [address] [facility] [address] [place] [address] PCP - General Family Medicine 02/19/17 Student Success Advisor Relationship Specialty Start Date End Date Donnie Kaminski APRN - SENIOR TRAINING SPECIALIST [address] [place], [place] [id number] PCP - General Nurse Practitioner 02/19/23 Student Success Advisor Relationship Specialty Start Date End Date Wally Ghosh MD [address] [place] [address] PCP - General Internal Medicine 08/08/21 INFORMATION SOURCE (unrecogn ized section and content) DATE CREATED AUTHOR 01/08/2022 [facility] DATE CREATED AUTHOR AUTHOR'S ORGANIZ ATION 03/03/2022 [facility] DATE CREATED AUTHOR AUTHOR'S ORGANIZ ATION 05/02/2022 [facility] DATE CREATED AUTHOR AUTHOR'S ORGANIZ ATION 05/31/2022 [facility] DATE CREATED AUTHOR AUTHOR'S ORGANIZ ATION 10/29/2022 [facility] DATE CREATED AUTHOR AUTHOR'S ORGANIZ ATION 03/07/2023 [facility] DATE CREATED AUTHOR AUTHOR'S ORGANIZ ATION 07/15/2023 [facility] DATE CREATED AUTHOR AUTHOR'S ORGANIZ ATION 08/25/2023 [facility] DATE CREATED AUTHOR AUTHOR'S ORGANIZ ATION 09/09/2023 [facility] DATE CREATED AUTHOR AUTHOR'S ORGANIZ ATION 09/30/2023 [facility] Source Comments (unrecognize d section and content) In the event this informatio n is protected by the Federal Confidentiality of Alcohol and Drug Abuse Patient Records regulations: The Federal rules restrict any use of the information to criminally investigate or prosecute any alcohol or drug abuse patient.[facility] the event this information is protected by the Federal Confidentiality of Alcohol and Drug Abuse Patient Records regulations: The Federal rules restrict any use of the information to criminally investigate or prosecute any alcohol or drug abuse patient.[facility] Reason for Visit (unrecogniz ed section and content) Reason Comments Appointment Specialty Diagnoses / Procedures Referred By Contac t Referred To Contact Diagnoses Post laminectomy syndrome Post laminectomy syndrome [M96.1] Procedures ME IMPLTJ/RPLCMT ITHCL/EDRL DRUG NFS PRGRBL PUMP INTERTHECAL PAIN PUMP REPLACEMENT Mohit Dejesus MD [address] [place] [address] [facility] [address] [place] [address] Referral ID Status Reason Start Date Expiration Date Visits Re quested Visits Authorized [id number] 1 1 Scheduled Active and Recently Administ [...] - Prov ider: Gunjan East APRN - TEACHER EDUCATION INSTRUCTOR - Comment: given over 1 hr) Continuous [...] Pre-op (day of surgery) bupivacaine-EPINEPHrine (MARCAINE-w/EPINEPHRINE) 0.5% -[id number] 30 mL, lidocaine 1 % 40 mL [...] BE BASED ON THE PRIMARY CLINICAL RECORDS. [employer] provides no warranty or guarantee of the accuracy or completeness of information in this document.
== END 2023-10-05 19:59 | disposition home or self-care (01) ==
LOC: SLEEP 19:58
PROVIDERS: PCP Nurse Practitioner Primary Care; Visit Provider Nurse Practitioner Primary Care
DX: G47.33 Obstructive sleep apnea (adult) (pediatric) (principal)
CPT/HCPCS: 95810

== ENCOUNTER 2023-10-13 09:27 | Outpatient (OUT) | payer MEDICARE, MEDICAID, SELFPAY ==
--- NOTE | 2023-10-13 09:37 | CT_ITS ---
[address] [address] Patient Name: FIDELINA FONTENOT MRN: [id number] date: 1975 Sex: F Assigned Patient Location: CT Current Patient Location: CT Accession/Order Number: [id number] Exam Date: 10/13/2023 09:45 Report Date: 10/13/2023 15:45 At the request of: ELIZABETH BLAIR Procedure: CT lung screening low-dose EXAMINATION: CT lung screening low-dose HISTORY: Nicotine Dependence F17.219 COMPARISON: No relevant comparison available. TECHNIQUE: Axial, Coronal, and Sagittal images were created without the administration of IV contrast material.Dose reduction techniques were achieved by using automated exposure control and/or adjustment of mA and/or kV according to patient size and/or use of iterative reconstruction technique. FINDINGS: LUNGS: No significant pulmonary nodule or mass. A few scattered linear opacities atelectasis favored PLEURA: No mass, effusion, or pneumothorax. VASCULATURE: No abnormality. JANICE: No mass or pathologic adenopathy. MEDIASTINUM: No mass or pathologic adenopathy. CARDIAC: No enlargement, pericardial thickening, or significant calcification. CORONARY ARTERIES: Coronary calcifcations are absent. AORTA: No aneurysm or dissection. CHEST WALL: No mass or axillary adenopathy BONES: No bone lesion or fracture. LIMITED ABDOMEN: No suspicious findings. Limited images of the upper abdomen. OTHER: Negative. CT/CT lung screening low-dose IMPRESSION: LUNG SCREENING: Lung-RADS Category 1 Negative. No nodules and definitely benign nodules. Continue annual screening with LDCT in 12 months. Electronically authenticated by: AGUSTIN DIMAS Date: 10/13/2023 15:45
== END 2023-10-13 09:28 | disposition home or self-care (01) ==
LOC: CT 09:27
PROVIDERS: Visit Provider Internal Medicine
DX: J45.40 Moderate persistent asthma, uncomplicated (principal); F17.219 Nicotine dependence, cigarettes, with unspecified nicotine-induced disorders; Z12.2 Encounter for screening for malignant neoplasm of respiratory organs
CPT/HCPCS: 71271

== ENCOUNTER 2023-10-30 16:33 | Observation (INO) | payer MEDICARE, MEDICAID, SELFPAY ==
[2023-10-30 16:37] VITALS: BP 150/71; PULSE 90; TEMP 36.9; O2SAT 93; BMI 50.0
--- NOTE | 2023-10-30 17:09 | ED.GENADUL1 ---
Documented by User: Adelaida Verma 10/30/23 17:34 HPI HPI - General Adult General Chief complaint: Skin/Abscess/Foreign Body Stated complaint: PT STATES BLOOD CLOT IN R CALF Time Seen by Provider: 10/30/23 16:34 Source: patient Mode of arrival: walk-in History of Present Illness HPI narrative: 48-year-old female presents here with a chief complaint of right lower extremity redness. Patient has a known history of DVT to this extremity that was diagnosed in August. September 11 she was admitted for DVT and cellulitis. She had completed IV antibiotics and was sent home on antibiotics. She is currently still taking Eliquis. Patient states over the last several days she has had increased redness and return of cellulitis. She is morbidly obese. She has a history of COPD, hypertension and [place] in the past. Patient states she is allergic to doxycycline. Related Data Home Medications ?Medication ?Instructions ?Recorded ?Confirmed albuterol sulfate 90 mcg/actuation 2 inh inhalation Q4H PRN shortness 04/28/23 10/30/23 aerosol inhaler of breath or wheezing buspirone 10 mg tablet 10 mg PO DAILY 04/28/23 10/30/23 folic acid 1 mg tablet 1 mg PO DAILY 04/28/23 10/30/23 lisinopril 20 mg tablet 20 mg PO DAILY 04/28/23 10/30/23 methotrexate sodium 2.5 mg tablet 25 mg PO .weekly 04/28/23 10/30/23 omeprazole 20 mg capsule,delayed 20 mg PO DAILY 04/28/23 10/30/23 release trazodone 150 mg tablet 150 mg PO DAILY PRN sleep 04/28/23 10/30/23 fluticasone fur. 200 mcg-umeclid 1 inh inhalation Q24H 10/30/23 10/30/23 62.5 mcg-vilant 25 mcg inhalat.powder (Trelegy Ellipta) Previous Rx's ?Medication ?Instructions ?Recorded apixaban 5 mg tablet (Eliquis) 5 mg PO BID 30 days #74 tabs 09/15/23 Allergies Allergy/AdvReac Type Severity Reaction Status Date / Time doxycycline Allergy Intermediate Hives Verified 09/14/23 08:42 oxytocin [From Pitocin] Allergy Intermediate Anaphylaxis Verified 09/14/23 08:42 sumatriptan [From Imitrex] Allergy Intermediate Flushing Verified 09/14/23 08:42 [facility] Allergy Vomiting Verified 09/14/23 08:42 NSAIDS (Non-Steroidal AdvReac renal Verified 09/14/23 08:42 Anti-Inflamma insufficiency Opioid HPI Opioid Management Most Recent Opioid Data: Last Pain Scale 4 05/11/23 08:51 Last Pain Assessment 10/30/23 19:32 Last ORT Total Score 4 10/30/23 18:01 Last ORT Risk Category Moderate Risk 10/30/23 18:01 Review of Systems ROS Narrative All Systems are negative except as noted/marked.All systems reviewed and otherwise negative [facility] Medical History (Updated 10/30/23 @ 18:16 by Gisela Randolph) DVT (deep venous thrombosis) ?I82.409 - Acute embolism and thrombosis of unspecified deep veins of unspecified lower extremity (ICD-10) Rheumatoid arthritis ?M06.9 - Rheumatoid arthritis, unspecified (ICD-10) Arthritis ?M19.90 - Unspecified osteoarthritis, unspecified site (ICD-10) Back pain ?M54.9 - Dorsalgia, unspecified (ICD-10) Insomnia ?G47.00 - Insomnia, unspecified (ICD-10) Panic attacks ?F41.0 - Panic disorder [episodic paroxysmal anxiety] (ICD-10) PTSD (post-traumatic stress disorder) ?F43.10 - Post-traumatic stress disorder, unspecified (ICD-10) Depression ?F32.A - Depression, unspecified (ICD-10) Anxiety ?F41.9 - Anxiety disorder, unspecified (ICD-10) Sleep apnea ?G47.30 - Sleep apnea, unspecified (ICD-10) Pneumonia ?J18.9 - Pneumonia, unspecified organism (ICD-10) Bronchitis ?J40 - Bronchitis, not specified as acute or chronic (ICD-10) Asthma ?J45.909 - Unspecified asthma, uncomplicated (ICD-10) Chronic obstructive pulmonary disease ?J44.9 - Chronic obstructive pulmonary disease, unspecified (ICD-10) Pelvic pain ?R10.2 - Pelvic and perineal pain (ICD-10) Abnormal uterine bleeding ?N93.9 - Abnormal uterine and vaginal bleeding, unspecified (ICD-10) Menorrhagia ?N92.0 - Excessive and frequent menstruation with regular cycle (ICD-10) GERD (gastroesophageal reflux disease) ?K21.9 - Gastro-esophageal reflux disease without esophagitis (ICD-10) Left ventricular hypertrophy ?I51.7 - Cardiomegaly (ICD-10) High cholesterol ?E78.00 - Pure hypercholesterolemia, unspecified (ICD-10) Extremity edema ?R60.0 - Localized edema (ICD-10) Congestive heart failure ?I50.9 - Heart failure, unspecified (ICD-10) Myocardial infarction (2019) ?I21.9 - Acute myocardial infarction, unspecified (ICD-10) Hypertension ?I10 - Essential (primary) hypertension (ICD-10) Prediabetes ?R73.03 - Prediabetes (ICD-10) Surgical History History of endometrial ablation ?Z98.890 - Other specified postprocedural states (ICD-10) History of cardiac catheterization ?Z98.890 - Other specified postprocedural states (ICD-10) History of tonsillectomy ?Z90.89 - Acquired absence of other organs (ICD-10) History of spinal surgery ?Z98.890 - Other specified postprocedural states (ICD-10) History of dilation and curettage ?Z98.890 - Other specified postprocedural states (ICD-10) History of dilation and curettage ?Z98.890 - Other specified postprocedural states (ICD-10) History of section ?Z98.891 - History of uterine scar from previous surgery (ICD-10) History of section ?Z98.891 - History of uterine scar from previous surgery (ICD-10) History of hernia repair ?Z98.890 - Other specified postprocedural states (ICD-10) ?Z87.19 - Personal history of other diseases of the digestive system (ICD-10) History of spinal surgery ?Z98.890 - Other specified postprocedural states (ICD-10) History of arthroplasty of knee ?Z96.659 - Presence of unspecified artificial knee joint (ICD-10) Family History Mother Family history of CHF (congestive heart failure) Family history of DVT Family history of breast cancer Family history of cancer Family history of heart disease Family history of hypertension Family history of myocardial infarction Family history of skin cancer Family history of uterine cancer Grandmother Family history of COPD (chronic obstructive pulmonary disease) Father Family history of diabetes mellitus Family history of hypertension Social History (Updated 10/30/23 @ 18:17 by Gisela Randolph) Within the past year, how often did you have a drink containing alcohol: never Within the past year, how many standard drinks containing alcohol did you have on a typical day: 1 or 2 Within the past year, how often did you have six or more drinks on one occasion: never Total score: 0 Score interpretation: A score less than 3 is consistent with normal alcohol consumption. Smoking status: Current every day smoker What tobacco products do you use: cigarettes Cigarettes per day: 30 Years smoked: 30 Smoking pack-years: 45.00 Non-prescribed substance use: cannabis (any form) Non-prescribed substance use details: every night- smoking Previous occupational history: [employer] Highest level of school completed/degree received: high school graduate Are you now , , , , never or living with a partner: In a typical week, how many times do you talk on the telephone with family, friends, or neighbors: 3 or more times per week How often do you get together with friends or relatives: once per week How often do you attend holiness or church services: never Do you belong to any clubs or organizations such as holiness groups unions, fraternal or athletic groups, or school groups: no Total score: 1 Score interpretation: A score of less than or equal to 1 indicates the most socially isolated. Little interest or pleasure in doing things: not at all Feeling down, depressed, or hopeless: not at all Feel stressed/tense/nervous/anxious/difficulty sleeping: not at all Gender Identity: female Exam Narrative Exam Narrative: Nurses note and vital signs reviewed and patient is not hypoxic. General: The patient appears well and in no apparent distress. Patient is resting comfortably on cart. Skin: Warm, dry, no pallor noted. There is no rash noted. Head: Normocephalic, atraumatic Eye: Normal conjunctiva, no drainage, EOMI. PERRL Ears, Nose, Mouth, and Throat: oral mucosa is moist. Nares patent. Mouth without vesicles. Ear canals patent. Tm's without Erythema Cardiovascular: Regular Rate and Rhythm Respiratory: Patient is in no distress, no accessory muscle use, lungs are clear to auscultation, no wheezing, rales or rhonchi Musculoskeletal: Right lower extremity redness measuring 18 cm below the knee circumferentially around the right calf. known DVT to right lower extremity,tenderness, no pitting edema, symmetrical pulses noted bilaterally Neurological: A&O x4, normal speech Psychiatric: Cooperative Constitutional Vital Signs, click to edit/add: Last Vital Signs Temp 98.2 F 10/30/23 19:33 Pulse 81 10/30/23 19:33 Resp 16 10/30/23 19:33 BP 112/74 10/30/23 19:33 Pulse Ox 95 10/30/23 19:34 O2 Del Method Nasal Cannula 10/30/23 19:34 O2 Flow Rate 2 10/30/23 19:34 Course Vital Signs Vital signs: Vital Signs Temperature 98.5 F 10/30/23 16:37 Pulse Rate 90 10/30/23 16:37 Respiratory Rate 18 10/30/23 16:37 Blood Pressure 150/71 H 10/30/23 16:37 Pulse Oximetry 93 L 10/30/23 16:37 Oxygen Delivery Method Room Air 10/30/23 16:37 Temperature 98.2 F 10/30/23 19:33 Pulse Rate 81 10/30/23 19:33 Respiratory Rate 16 10/30/23 19:33 Blood Pressure 112/74 10/30/23 19:33 Pulse Oximetry 95 10/30/23 19:34 Oxygen Delivery Method Nasal Cannula 10/30/23 19:34 Oxygen Delivery Flow Rate 2 10/30/23 19:34 Medical Decision Making MDM Narrative Medical decision making narrative: 48-year-old female presents here with a chief complaint of right lower extremity redness. Patient has a known history of DVT to this extremity that was diagnosed in September 11 she was admitted for DVT and cellulitis. She had completed IV antibiotics and was sent home on antibiotics. She is currently still taking Eliquis. Patient states over the last several days she has had increased redness and return of cellulitis. She is morbidly obese. She has a history of COPD, hypertension and [place] in the past. Patient states she is allergic to doxycycline. Emergency room with a chief complaint of redness and discomfort to the right lower extremity. Patient has known history of DVT and on Eliquis for this extremity. Patient's right lower extremity examination consistent with cellulitis. Measuring approximately 18 cm and measures circumferentially around her leg. Patient is obese and has bilateral lower extremity edema normally. Patient will be given IV antibiotics of vancomycin and clindamycin. I spoke to Dr. Bell concerning this patient's care and he agrees to admit her. Patient be admitted for observation for cellulitis. Patient denies need for pain medication at this time. She also agrees with plan of care. Differential Diagnosis Differential Diagnosis: abscess, cellulitis Medical Records Medical records reviewed: Yes I reviewed the patient's medical records Lab Data Lab results reviewed: Yes I reviewed the patient's lab results Labs: Lab Results 10/30/23 Range/Units 16:57 WBC 7.9 (4.0-11.0) 10^3/uL RBC 4.48 (4.20-5.40) 10^6/uL Hgb 12.5 (12.0-16.0) g/dL Hct 38.9 (36.0-48.0) % MCV 86.8 (81.0-99.0) fL MCH 27.9 (26.7-34.0) pg MCHC 32.1 (29.9-35.2) g/dL RDW 16.5 H (11.0-15.0) % Plt Count 230 (150-450) 10^3/uL MPV 10.1 (9.5-13.5) fL Neut % (Auto) 66.3 (43.0-75.0) % Lymph % (Auto) 24.4 (20.5-60.0) % [place] % (Auto) 7.0 (1.7-12.0) % Eos % (Auto) 1.4 (0.9-7.0) % Baso % (Auto) 0.6 (0.2-2.0) % Neut # (Auto) 5.2 (1.4-6.5) 10^3/uL Lymph # (Auto) 1.9 (1.2-3.8) 10^3/uL [place] # (Auto) 0.6 (0.3-0.8) 10^3/uL Eos # (Auto) 0.1 (0.0-0.7) 10^3/uL Baso # (Auto) 0.1 (0.0-0.1) 10^3/uL Abs Immat Gran (auto) 0.02 (0.00-0.03) 10^3/uL Imm/Tot Granulo (auto) 0.3 (0.0-0.5) % Sodium 141 (136-145) mmol/L Potassium 4.1 (3.5-5.1) mmol/L Chloride 104 (98-107) mmol/L Carbon Dioxide 30.0 (21.0-32.0) mmol/L Anion Gap 11.1 BUN 16.0 (7.0-18.0) mg/dL Creatinine 0.81 (0.55-1.02) mg/dL Est GFR ( Amer) >60 (>=60) Est GFR (Non-Af Amer) >60 (>=60) BUN/Creatinine Ratio 19.8 Glucose 105 (74-106) mg/dL Calcium 9.3 (8.5-10.1) mg/dL Total Bilirubin 0.6 (0.2-1.0) mg/dL AST 14 L (15-37) U/L ALT 25 (14-59) U/L Alkaline Phosphatase 84 (46-116) U/L Total Protein 7.3 (6.4-8.2) g/dL Albumin 3.7 (3.4-5.0) g/dL Globulin 3.6 g/dL Albumin/Globulin Ratio 1.0 Discharge Plan Discharge Chief Complaint: Skin/Abscess/Foreign Body Clinical Impression: Cellulitis of right lower leg, Cellulitis Patient Disposition: Admitted as Observation Time of Disposition Decision: 17:08 Condition: Good Discharge Date/Time: 10/30/23 17:49 Documented by User: William Cheung MD 10/30/23 19:38 HPI HPI - General Adult General Chief complaint: Skin/Abscess/Foreign Body Stated complaint: PT STATES BLOOD CLOT IN R CALF Time Seen by Provider: 10/30/23 16:34 Related Data Home Medications ?Medication ?Instructions ?Recorded ?Confirmed albuterol sulfate 90 mcg/actuation 2 inh inhalation Q4H PRN shortness 04/28/23 10/30/23 aerosol inhaler of breath or wheezing buspirone 10 mg tablet 10 mg PO DAILY 04/28/23 10/30/23 folic acid 1 mg tablet 1 mg PO DAILY 04/28/23 10/30/23 lisinopril 20 mg tablet 20 mg PO DAILY 04/28/23 10/30/23 methotrexate sodium 2.5 mg tablet 25 mg PO .weekly 04/28/23 10/30/23 omeprazole 20 mg capsule,delayed 20 mg PO DAILY 04/28/23 10/30/23 release trazodone 150 mg tablet 150 mg PO DAILY PRN sleep 04/28/23 10/30/23 fluticasone fur. 200 mcg-umeclid 1 inh inhalation Q24H 10/30/23 10/30/23 62.5 mcg-vilant 25 mcg inhalat.powder (Trelegy Ellipta) Previous Rx's ?Medication ?Instructions ?Recorded apixaban 5 mg tablet (Eliquis) 5 mg PO BID 30 days #74 tabs 09/15/23 Allergies Allergy/AdvReac Type Severity Reaction Status Date / Time doxycycline Allergy Intermediate Hives Verified 09/14/23 08:42 oxytocin [From Pitocin] Allergy Intermediate Anaphylaxis Verified 09/14/23 08:42 sumatriptan [From Imitrex] Allergy Intermediate Flushing Verified 09/14/23 08:42 dulaglutide [From Trulicity] Allergy Vomiting Verified 09/14/23 08:42 NSAIDS (Non-Steroidal AdvReac renal Verified 09/14/23 08:42 Anti-Inflamma insufficiency Opioid HPI Opioid Management Most Recent Opioid Data: Last Pain Scale 4 05/11/23 08:51 Last Pain Assessment 10/30/23 19:32 Last ORT Total Score 4 10/30/23 18:01 Last ORT Risk Category Moderate Risk 10/30/23 18:01 [facility] Medical History (Updated 10/30/23 @ 18:16 by Gisela Randolph) DVT (deep venous thrombosis) ?I82.409 - Acute embolism and thrombosis of unspecified deep veins of unspecified lower extremity (ICD-10) Rheumatoid arthritis ?M06.9 - Rheumatoid arthritis, unspecified (ICD-10) Arthritis ?M19.90 - Unspecified osteoarthritis, unspecified site (ICD-10) Back pain ?M54.9 - Dorsalgia, unspecified (ICD-10) Insomnia ?G47.00 - Insomnia, unspecified (ICD-10) Panic attacks ?F41.0 - Panic disorder [episodic paroxysmal anxiety] (ICD-10) PTSD (post-traumatic stress disorder) ?F43.10 - Post-traumatic stress disorder, unspecified (ICD-10) Depression ?F32.A - Depression, unspecified (ICD-10) Anxiety ?F41.9 - Anxiety disorder, unspecified (ICD-10) Sleep apnea ?G47.30 - Sleep apnea, unspecified (ICD-10) Pneumonia ?J18.9 - Pneumonia, unspecified organism (ICD-10) Bronchitis ?J40 - Bronchitis, not specified as acute or chronic (ICD-10) Asthma ?J45.909 - Unspecified asthma, uncomplicated (ICD-10) Chronic obstructive pulmonary disease ?J44.9 - Chronic obstructive pulmonary disease, unspecified (ICD-10) Pelvic pain ?R10.2 - Pelvic and perineal pain (ICD-10) Abnormal uterine bleeding ?N93.9 - Abnormal uterine and vaginal bleeding, unspecified (ICD-10) Menorrhagia ?N92.0 - Excessive and frequent menstruation with regular cycle (ICD-10) GERD (gastroesophageal reflux disease) ?K21.9 - Gastro-esophageal reflux disease without esophagitis (ICD-10) Left ventricular hypertrophy ?I51.7 - Cardiomegaly (ICD-10) High cholesterol ?E78.00 - Pure hypercholesterolemia, unspecified (ICD-10) Extremity edema ?R60.0 - Localized edema (ICD-10) Congestive heart failure ?I50.9 - Heart failure, unspecified (ICD-10) Myocardial infarction (2019) ?I21.9 - Acute myocardial infarction, unspecified (ICD-10) Hypertension ?I10 - Essential (primary) hypertension (ICD-10) Prediabetes ?R73.03 - Prediabetes (ICD-10) Surgical History History of endometrial ablation ?Z98.890 - Other specified postprocedural states (ICD-10) History of cardiac catheterization ?Z98.890 - Other specified postprocedural states (ICD-10) History of tonsillectomy ?Z90.89 - Acquired absence of other organs (ICD-10) History of spinal surgery ?Z98.890 - Other specified postprocedural states (ICD-10) History of dilation and curettage ?Z98.890 - Other specified postprocedural states (ICD-10) History of dilation and curettage ?Z98.890 - Other specified postprocedural states (ICD-10) History of section ?Z98.891 - History of uterine scar from previous surgery (ICD-10) History of section ?Z98.891 - History of uterine scar from previous surgery (ICD-10) History of hernia repair ?Z98.890 - Other specified postprocedural states (ICD-10) ?Z87.19 - Personal history of other diseases of the digestive system (ICD-10) History of spinal surgery ?Z98.890 - Other specified postprocedural states (ICD-10) History of arthroplasty of knee ?Z96.659 - Presence of unspecified artificial knee joint (ICD-10) Family History Mother Family history of CHF (congestive heart failure) Family history of DVT Family history of breast cancer Family history of cancer Family history of heart disease Family history of hypertension Family history of myocardial infarction Family history of skin cancer Family history of uterine cancer Grandmother Family history of COPD (chronic obstructive pulmonary disease) Father Family history of diabetes mellitus Family history of hypertension Social History (Updated 10/30/23 @ 18:17 by Gisela Randolph) Within the past year, how often did you have a drink containing alcohol: never Within the past year, how many standard drinks containing alcohol did you have on a typical day: 1 or 2 Within the past year, how often did you have six or more drinks on one occasion: never Total score: 0 Score interpretation: A score less than 3 is consistent with normal alcohol consumption. Smoking status: Current every day smoker What tobacco products do you use: cigarettes Cigarettes per day: 30 Years smoked: 30 Smoking pack-years: 45.00 Non-prescribed substance use: cannabis (any form) Non-prescribed substance use details: every night- smoking Previous occupational history: [employer] Highest level of school completed/degree received: high school graduate Are you now , , , , never or living with a partner: In a typical week, how many times do you talk on the telephone with family, friends, or neighbors: 3 or more times per week How often do you get together with friends or relatives: once per week How often do you attend holiness or church services: never Do you belong to any clubs or organizations such as holiness groups unions, fraternal or athletic groups, or school groups: no Total score: 1 Score interpretation: A score of less than or equal to 1 indicates the most socially isolated. Little interest or pleasure in doing things: not at all Feeling down, depressed, or hopeless: not at all Feel stressed/tense/nervous/anxious/difficulty sleeping: not at all Gender Identity: female Exam Constitutional Vital Signs, click to edit/add: Last Vital Signs Temp 98.2 F 10/30/23 19:33 Pulse 81 10/30/23 19:33 Resp 16 10/30/23 19:33 BP 112/74 10/30/23 19:33 Pulse Ox 95 10/30/23 19:34 O2 Del Method Nasal Cannula 10/30/23 19:34 O2 Flow Rate 2 10/30/23 19:34 Course Vital Signs Vital signs: Vital Signs Temperature 98.5 F 10/30/23 16:37 Pulse Rate 90 10/30/23 16:37 Respiratory Rate 18 10/30/23 16:37 Blood Pressure 150/71 H 10/30/23 16:37 Pulse Oximetry 93 L 10/30/23 16:37 Oxygen Delivery Method Room Air 10/30/23 16:37 Temperature 98.2 F 10/30/23 19:33 Pulse Rate 81 10/30/23 19:33 Respiratory Rate 16 10/30/23 19:33 Blood Pressure 112/74 10/30/23 19:33 Pulse Oximetry 95 10/30/23 19:34 Oxygen Delivery Method Nasal Cannula 10/30/23 19:34 Oxygen Delivery Flow Rate 2 10/30/23 19:34 Medical Decision Making MDM Narrative Medical decision making narrative: 48-year-old female presents here with a chief complaint of right lower extremity redness. Patient has a known history of DVT to this extremity that was diagnosed in September 11 she was admitted for DVT and cellulitis. She had completed IV antibiotics and was sent home on antibiotics. She is currently still taking Eliquis. Patient states over the last several days she has had increased redness and return of cellulitis. She is morbidly obese. She has a history of COPD, hypertension and [place] in the past. Patient states she is allergic to doxycycline. Emergency room with a chief complaint of redness and discomfort to the right lower extremity. Patient has known history of DVT and on Eliquis for this extremity. Patient's right lower extremity examination consistent with cellulitis. Measuring approximately 18 cm and measures circumferentially around her leg. Patient is obese and has bilateral lower extremity edema normally. Patient will be given IV antibiotics of vancomycin and clindamycin. I spoke to Dr. Bell concerning this patient's care and he agrees to admit her. Patient be admitted for observation for cellulitis. Patient denies need for pain medication at this time. She also agrees with plan of care. I, Dr Cheung, have reviewed the above progress note and course of action in the ER; agree with the above. I have personally seen and evaluated this patient, gone over history and physical, and discussed disposition and treatment plan with the patient. Lab Data Labs: Lab Results 10/30/23 Range/Units 16:57 WBC 7.9 (4.0-11.0) 10^3/uL RBC 4.48 (4.20-5.40) 10^6/uL Hgb 12.5 (12.0-16.0) g/dL Hct 38.9 (36.0-48.0) % MCV 86.8 (81.0-99.0) fL MCH 27.9 (26.7-34.0) pg MCHC 32.1 (29.9-35.2) g/dL RDW 16.5 H (11.0-15.0) % Plt Count 230 (150-450) 10^3/uL MPV 10.1 (9.5-13.5) fL Neut % (Auto) 66.3 (43.0-75.0) % Lymph % (Auto) 24.4 (20.5-60.0) % [place] % (Auto) 7.0 (1.7-12.0) % Eos % (Auto) 1.4 (0.9-7.0) % Baso % (Auto) 0.6 (0.2-2.0) % Neut # (Auto) 5.2 (1.4-6.5) 10^3/uL Lymph # (Auto) 1.9 (1.2-3.8) 10^3/uL [place] # (Auto) 0.6 (0.3-0.8) 10^3/uL Eos # (Auto) 0.1 (0.0-0.7) 10^3/uL Baso # (Auto) 0.1 (0.0-0.1) 10^3/uL Abs Immat Gran (auto) 0.02 (0.00-0.03) 10^3/uL Imm/Tot Granulo (auto) 0.3 (0.0-0.5) % Sodium 141 (136-145) mmol/L Potassium 4.1 (3.5-5.1) mmol/L Chloride 104 (98-107) mmol/L Carbon Dioxide 30.0 (21.0-32.0) mmol/L Anion Gap 11.1 BUN 16.0 (7.0-18.0) mg/dL Creatinine 0.81 (0.55-1.02) mg/dL Est GFR ( Amer) >60 (>=60) Est GFR (Non-Af Amer) >60 (>=60) BUN/Creatinine Ratio 19.8 Glucose 105 (74-106) mg/dL Calcium 9.3 (8.5-10.1) mg/dL Total Bilirubin 0.6 (0.2-1.0) mg/dL AST 14 L (15-37) U/L ALT 25 (14-59) U/L Alkaline Phosphatase 84 (46-116) U/L Total Protein 7.3 (6.4-8.2) g/dL Albumin 3.7 (3.4-5.0) g/dL Globulin 3.6 g/dL Albumin/Globulin Ratio 1.0 Discharge Plan Discharge Chief Complaint: Skin/Abscess/Foreign Body Clinical Impression: Cellulitis of right lower leg, Cellulitis Patient Disposition: Admitted as Observation Time of Disposition Decision: 17:08 Condition: Good Discharge Date/Time: 10/30/23 17:49
[2023-10-30 17:14] LABS: Basophils Absolute Auto 0.1 10^3/uL (0.0-0.1); Basophils Percent Auto 0.6 % (0.2-2.0); Eosinophils Absolute Auto 0.1 10^3/uL (0.0-0.7); Eosinophils Percent Auto 1.4 % (0.9-7.0); Hematocrit 38.9 % (36.0-48.0); Hemoglobin 12.5 g/dL (12.0-16.0); Immature Granulocytes Abs Auto 0.02 10^3/uL (0.00-0.03); Immature Granulocytes Pct Auto 0.3 % (0.0-0.5); Lymphocytes Absolute Auto 1.9 10^3/uL (1.2-3.8); Lymphocytes Percent Auto 24.4 % (20.5-60.0); Mean Corpuscular HGB Conc 32.1 g/dL (29.9-35.2); Mean Corpuscular Hemoglobin 27.9 pg (26.7-34.0); Mean Corpuscular Volume 86.8 fL (81.0-99.0); Mean Platelet Volume 10.1 fL (9.5-13.5); Monocytes Absolute Auto 0.6 10^3/uL (0.3-0.8); Neutrophils Absolute Auto 5.2 10^3/uL (1.4-6.5); Neutrophils Percent Auto 66.3 % (43.0-75.0); Platelet Count 230 10^3/uL (150-450); Red Blood Count 4.48 10^6/uL (4.20-5.40); Red Cell Distribution Width 16.5 % (11.0-15.0); White Blood Count 7.9 10^3/uL (4.0-11.0)
[2023-10-30] MEDS: VANCOMYCIN HCL 1,000 MG in 0.9 % SODIUM CHLORIDE 250 ML 250 MG IV ×2 (17:20→23:50)
[2023-10-30 17:28] LABS: Alanine Aminotransferase 25 U/L (14-59); Albumin Level 3.7 g/dL (3.4-5.0); Alkaline Phosphatase 84 U/L (46-116); Anion Gap 11.1; Aspartate Amino Transferase 14 U/L (15-37); BUN Creatinine Ratio 19.8; Bilirubin Total 0.6 mg/dL (0.2-1.0); Calcium 9.3 mg/dL (8.5-10.1); Chloride 104 mmol/L (98-107); Estimated GFR (African America >60 (>=60); Estimated GFR (Non-African Ame >60 (>=60); Globulin 3.6 g/dL; Glucose 105 mg/dL (74-106); Potassium 4.1 mmol/L (3.5-5.1); Sodium 141 mmol/L (136-145); Total Protein 7.3 g/dL (6.4-8.2)
[2023-10-30 18:01] VITALS: BP 122/80; PULSE 73; TEMP 36.9; O2SAT 93; BMI 54.0
[2023-10-30 18:07] VITALS: BP 120/74; PULSE 77; TEMP 36.9; O2SAT 93
[2023-10-30] MEDS: CLINDAMYCIN PHOSPHATE/D5W 900 MG/50 ML PIGGYBACK 100 MG IV (18:24)
[2023-10-30] MEDS: LACTATED RINGER'S SOLUTION 1,000 ML 100 ML IV (18:24)
[2023-10-30 19:33] VITALS: BP 112/74; PULSE 81; TEMP 36.8; O2SAT 87
[2023-10-30 19:34] VITALS: O2SAT 95
[2023-10-30] MEDS: APIXABAN 5 MG TABLET PO (20:27)
[2023-10-30] MEDS: NICOTINE 14 MG PATCH.TD24 TD (20:27)
[2023-10-31] MEDS: OMEPRAZOLE 20 MG CAPSULE.DR PO (05:30)
[2023-10-31 05:43] VITALS: BP 151/88; PULSE 63; TEMP 36.5; O2SAT 97
[2023-10-31] MEDS: LACTATED RINGER'S SOLUTION 1,000 ML 100 ML IV (05:45)
[2023-10-31 06:00] LABS: Basophils Absolute Auto 0.1 10^3/uL (0.0-0.1); Eosinophils Absolute Auto 0.1 10^3/uL (0.0-0.7); Eosinophils Percent Auto 1.8 % (0.9-7.0); Hematocrit 37.7 % (36.0-48.0); Hemoglobin 11.6 g/dL (12.0-16.0); Immature Granulocytes Abs Auto 0.01 10^3/uL (0.00-0.03); Immature Granulocytes Pct Auto 0.2 % (0.0-0.5); Lymphocytes Absolute Auto 1.6 10^3/uL (1.2-3.8); Lymphocytes Percent Auto 25.6 % (20.5-60.0); Mean Corpuscular HGB Conc 30.8 g/dL (29.9-35.2); Mean Corpuscular Hemoglobin 27.8 pg (26.7-34.0); Mean Corpuscular Volume 90.4 fL (81.0-99.0); Mean Platelet Volume 10.7 fL (9.5-13.5); Monocytes Absolute Auto 0.4 10^3/uL (0.3-0.8); Neutrophils Percent Auto 64.4 % (43.0-75.0); Platelet Count 214 10^3/uL (150-450); Red Blood Count 4.17 10^6/uL (4.20-5.40); Red Cell Distribution Width 16.6 % (11.0-15.0); White Blood Count 6.3 10^3/uL (4.0-11.0)
[2023-10-31 06:16] LABS: Alanine Aminotransferase 21 U/L (14-59); Albumin Globulin Ratio 0.9; Albumin Level 3.1 g/dL (3.4-5.0); Alkaline Phosphatase 79 U/L (46-116); Anion Gap 11.3; Aspartate Amino Transferase 12 U/L (15-37); BUN Creatinine Ratio 17.7; Bilirubin Total 0.5 mg/dL (0.2-1.0); Calcium 8.7 mg/dL (8.5-10.1); Carbon Dioxide 28.9 mmol/L (21.0-32.0); Chloride 106 mmol/L (98-107); Estimated GFR (African America >60 (>=60); Estimated GFR (Non-African Ame >60 (>=60); Globulin 3.3 g/dL; Glucose 128 mg/dL (74-106); Potassium 4.2 mmol/L (3.5-5.1); Sodium 142 mmol/L (136-145); Total Protein 6.4 g/dL (6.4-8.2)
[2023-10-31] MEDS: METOPROLOL SUCCINATE 25 MG TAB.ER.24H PO (08:24)
[2023-10-31] MEDS: APIXABAN 5 MG TABLET PO (08:24)
[2023-10-31] MEDS: LAMOTRIGINE 100 MG TABLET PO (08:24)
[2023-10-31] MEDS: ATORVASTATIN CALCIUM 10 MG TABLET PO (08:24)
[2023-10-31] MEDS: VANCOMYCIN HCL 1,000 MG in 0.9 % SODIUM CHLORIDE 250 ML 250 MG IV (08:24)
[2023-10-31] MEDS: FOLIC ACID 1 MG TABLET PO (08:25)
[2023-10-31] MEDS: DULOXETINE HCL 60 MG CAPSULE.DR PO (08:25)
[2023-10-31] MEDS: LISINOPRIL 20 MG TABLET PO (08:25)
[2023-10-31 08:31] VITALS: BP 137/81; PULSE 68; TEMP 36.6; O2SAT 93
--- NOTE | 2023-10-31 09:36 | PM.HP ---
HPI H&P: HPI History of Present Illness Chief complaint: CELLULITIS RIGHT LOWER LEG Narrative: 48 y/o female to ER with redness and swelling to right lower leg. Admitted in August with DVT and cellulitis. Treated with clindamcyin and improved. On Eliquis. Over past few days noticed increased redness and swelling to right leg. Skin red and warm to touch. Increased swelling in leg. To ER and WBC normal. Afebrile. Noted larger area of redness to right lower leg and admitted for cellulitis. Started vancomycin and resumed home medication. Much improved overnight. Redness mostly resolved and much smaller area affected compared to demarcated border. Mild pain. Normal appetite and afebrile. Patient wants to go home. Opioid HPI Opioid Management Most Recent Opioid Data: Last Pain Scale 4 05/11/23 08:51 Last Pain Assessment 10/31/23 09:06 Last ORT Total Score 4 10/30/23 18:01 Last ORT Risk Category Moderate Risk 10/30/23 18:01 Review of Systems ROS Constitutional Denies: fever, chills or fatigue Cardiovascular Denies: chest pain, palpitations or edema Respiratory Denies: shortness of breath, cough or wheezing Gastrointestinal Denies: abdominal pain, nausea, vomiting or diarrhea Genitourinary Denies: painful urination PFSH [facility] Medical History (Updated 10/31/23 @ 07:12 by Jonny Vargas MD) Cellulitis ?L03.90 - Cellulitis, unspecified (ICD-10) DVT (deep venous thrombosis) ?I82.409 - Acute embolism and thrombosis of unspecified deep veins of unspecified lower extremity (ICD-10) Arthritis ?M19.90 - Unspecified osteoarthritis, unspecified site (ICD-10) Back pain ?M54.9 - Dorsalgia, unspecified (ICD-10) Insomnia ?G47.00 - Insomnia, unspecified (ICD-10) Panic attacks ?F41.0 - Panic disorder [episodic paroxysmal anxiety] (ICD-10) PTSD (post-traumatic stress disorder) ?F43.10 - Post-traumatic stress disorder, unspecified (ICD-10) Depression ?F32.A - Depression, unspecified (ICD-10) Anxiety ?F41.9 - Anxiety disorder, unspecified (ICD-10) Sleep apnea ?G47.30 - Sleep apnea, unspecified (ICD-10) Pneumonia ?J18.9 - Pneumonia, unspecified organism (ICD-10) Bronchitis ?J40 - Bronchitis, not specified as acute or chronic (ICD-10) Asthma ?J45.909 - Unspecified asthma, uncomplicated (ICD-10) Pelvic pain ?R10.2 - Pelvic and perineal pain (ICD-10) Abnormal uterine bleeding ?N93.9 - Abnormal uterine and vaginal bleeding, unspecified (ICD-10) Menorrhagia ?N92.0 - Excessive and frequent menstruation with regular cycle (ICD-10) GERD (gastroesophageal reflux disease) ?K21.9 - Gastro-esophageal reflux disease without esophagitis (ICD-10) Left ventricular hypertrophy ?I51.7 - Cardiomegaly (ICD-10) High cholesterol ?E78.00 - Pure hypercholesterolemia, unspecified (ICD-10) Extremity edema ?R60.0 - Localized edema (ICD-10) Congestive heart failure ?I50.9 - Heart failure, unspecified (ICD-10) Myocardial infarction (2019) ?I21.9 - Acute myocardial infarction, unspecified (ICD-10) Prediabetes ?R73.03 - Prediabetes (ICD-10) Surgical History History of endometrial ablation ?Z98.890 - Other specified postprocedural states (ICD-10) History of cardiac catheterization ?Z98.890 - Other specified postprocedural states (ICD-10) History of tonsillectomy ?Z90.89 - Acquired absence of other organs (ICD-10) History of spinal surgery ?Z98.890 - Other specified postprocedural states (ICD-10) History of dilation and curettage ?Z98.890 - Other specified postprocedural states (ICD-10) History of dilation and curettage ?Z98.890 - Other specified postprocedural states (ICD-10) History of section ?Z98.891 - History of uterine scar from previous surgery (ICD-10) History of section ?Z98.891 - History of uterine scar from previous surgery (ICD-10) History of hernia repair ?Z98.890 - Other specified postprocedural states (ICD-10) ?Z87.19 - Personal history of other diseases of the digestive system (ICD-10) History of spinal surgery ?Z98.890 - Other specified postprocedural states (ICD-10) History of arthroplasty of knee ?Z96.659 - Presence of unspecified artificial knee joint (ICD-10) Family History Mother Family history of CHF (congestive heart failure) Family history of DVT Family history of breast cancer Family history of cancer Family history of heart disease Family history of hypertension Family history of myocardial infarction Family history of skin cancer Family history of uterine cancer Grandmother Family history of COPD (chronic obstructive pulmonary disease) Father Family history of diabetes mellitus Family history of hypertension Social History (Updated 10/30/23 @ 18:17 by Gisela Randolph) Within the past year, how often did you have a drink containing alcohol: never Within the past year, how many standard drinks containing alcohol did you have on a typical day: 1 or 2 Within the past year, how often did you have six or more drinks on one occasion: never Total score: 0 Score interpretation: A score less than 3 is consistent with normal alcohol consumption. Smoking status: Current every day smoker What tobacco products do you use: cigarettes Cigarettes per day: 30 Years smoked: 30 Smoking pack-years: 45.00 Non-prescribed substance use: cannabis (any form) Non-prescribed substance use details: every night- smoking Previous occupational history: [employer] Highest level of school completed/degree received: high school graduate Are you now , , , , never or living with a partner: In a typical week, how many times do you talk on the telephone with family, friends, or neighbors: 3 or more times per week How often do you get together with friends or relatives: once per week How often do you attend caodaism or mandaen services: never Do you belong to any clubs or organizations such as caodaism groups unions, fraternal or athletic groups, or school groups: no Total score: 1 Score interpretation: A score of less than or equal to 1 indicates the most socially isolated. Little interest or pleasure in doing things: not at all Feeling down, depressed, or hopeless: not at all Feel stressed/tense/nervous/anxious/difficulty sleeping: not at all Gender Identity: female Meds Home Medications and Allergies Home Medications ?Medication ?Instructions ?Recorded ?Confirmed ?Type albuterol sulfate 90 mcg/actuation 2 inh inhalation Q4H PRN shortness 04/28/23 10/30/23 History aerosol inhaler of breath or wheezing buspirone 10 mg tablet 10 mg PO DAILY 04/28/23 10/30/23 History folic acid 1 mg tablet 1 mg PO DAILY 04/28/23 10/30/23 History lisinopril 20 mg tablet 20 mg PO DAILY 04/28/23 10/30/23 History methotrexate sodium 2.5 mg tablet 25 mg PO .weekly 04/28/23 10/30/23 History omeprazole 20 mg capsule,delayed 20 mg PO DAILY 04/28/23 10/30/23 History release trazodone 150 mg tablet 150 mg PO DAILY PRN sleep 04/28/23 10/30/23 History apixaban 5 mg tablet (Eliquis) 5 mg PO BID 30 days #74 tabs 09/15/23 10/30/23 Rx fluticasone fur. 200 mcg-umeclid 1 inh inhalation Q24H 10/30/23 10/30/23 History 62.5 mcg-vilant 25 mcg inhalat.powder (Trelegy Ellipta) clindamycin HCl 300 mg capsule 300 mg PO Q6H 10 days #40 caps 10/31/23 Rx Allergies Allergy/AdvReac Type Severity Reaction Status Date / Time doxycycline Allergy Intermediate Hives Verified 09/14/23 08:42 oxytocin [From Pitocin] Allergy Intermediate Anaphylaxis Verified 09/14/23 08:42 sumatriptan [From Imitrex] Allergy Intermediate Flushing Verified 09/14/23 08:42 dulaglutide [From Trulicity] Allergy Vomiting Verified 09/14/23 08:42 NSAIDS (Non-Steroidal AdvReac renal Verified 09/14/23 08:42 Anti-Inflamma insufficiency Exam Constitutional Vital Signs, click to edit/add: Last Vital Signs Temp 97.9 F 10/31/23 08:31 Pulse 68 10/31/23 08:31 Resp 18 10/31/23 08:31 BP 137/81 10/31/23 08:31 Pulse Ox 93 L 10/31/23 08:31 O2 Del Method Room Air 10/31/23 08:31 O2 Flow Rate 2 10/31/23 05:43 Documenting provider has reviewed patient's vital signs: yes Common normals: no apparent distress, oriented x3 and alert HENMT Common normals: normocephalic Eye Common normals: PERRL and EOMs intact bilaterally Respiratory Common normals: normal respiratory effort and clear to auscultation bilaterally Cardio Common normals: regular rate, regular rhythm, no gallops, no murmurs and no rub GI Common normals: Normal to inspection, nondistended, normoactive bowel sounds present and non-tender Extremity General: edema (2+ nonpitting bipedal edema) Right lower extremity: lower leg (Mild erythema anterior mid barajas, ) Results Labs Labs: Short CBC 10/30/23 10/31/23 Range/Units 16:57 04:19 WBC 7.9 6.3 (4.0-11.0) 10^3/uL Hgb 12.5 11.6 L (12.0-16.0) g/dL Hct 38.9 37.7 (36.0-48.0) % Plt Count 230 214 (150-450) 10^3/uL BMP 10/30/23 10/31/23 16:57 04:19 Sodium 141 142 Potassium 4.1 4.2 Chloride 104 106 Carbon Dioxide 30.0 28.9 BUN 16.0 14.0 Creatinine 0.81 0.79 Glucose 105 128 H Calcium 9.3 8.7 Liver Function 10/30/23 10/31/23 Range/Units 16:57 04:19 Total Bilirubin 0.6 0.5 (0.2-1.0) mg/dL AST 14 L 12 L (15-37) U/L ALT 25 21 (14-59) U/L Alkaline Phosphatase 84 79 (46-116) U/L Albumin 3.7 3.1 L (3.4-5.0) g/dL Assessment and Plan Assessment and Plan (1) Cellulitis of right lower leg: (2) Deep vein thrombosis of lower extremity: Qualifiers: Affected thrombotic vein of extremity: tibial Chronicity: acute Laterality: right Qualified Code(s): I82.441 - Acute embolism and thrombosis of right tibial vein (3) Edema, peripheral: (4) Hypertension: Qualifiers: Hypertension type: primary hypertension Qualified Code(s): I10 - Essential (primary) hypertension (5) Chronic obstructive pulmonary disease: (6) Rheumatoid arthritis: Qualifiers: Rheumatoid arthritis location: unspecified site Rheumatoid factor presence: unspecified presence Qualified Code(s): M06.9 - Rheumatoid arthritis, unspecified (7) Tobacco abuse: Plan Presented with cellulitis but responded well to IV vancomycin. Labs normal and afebrile. Discharge home with oral clindamycin. Resume home medication as directed including Eliquis for DVT. Elevate legs PRN. Follow up with PCP in 1-2 weeks.
[2023-10-31 10:59] LABS: Vancomycin Trough 10.6 ug/mL (5.0-20.0)
--- NOTE | 2023-11-03 13:34 | CM.DCFOLLOWU ---
Person spoke with: Radha How are you feeling? Doing well How is your pain? no pain Did you understand your discharge instructions? yes Do you have any questions about your discharge instructions? no questions Were you given any prescriptions at discharge? yes Were you able to get your prescriptions filled? yes Do you understand how to take your medications as ordered? yes Do you have any questions about your follow up appointment and do you plan to keep your follow up appointment? Appt made and intends on going. Is there anything else that you would like to discuss? No Questions/Comments/Concerns/Other:
== END 2023-10-31 10:26 | disposition home health service (06) ==
LOC: ER 17:08 → MS 10-31 09:10
PROVIDERS: Physician Assistant; Admitting Provider Internal Medicine; Emergency Provider Emergency Medicine; Visit Provider Family Medicine
DX: L03.115 Cellulitis of right lower limb (principal); I82.441 Acute embolism and thrombosis of right tibial vein; J44.9 Chronic obstructive pulmonary disease, unspecified; M06.9 Rheumatoid arthritis, unspecified; R60.9 Edema, unspecified; I11.0 Hypertensive heart disease with heart failure; I50.9 Heart failure, unspecified; R73.03 Prediabetes; I25.2 Old myocardial infarction; E78.00 Pure hypercholesterolemia, unspecified; F17.210 Nicotine dependence, cigarettes, uncomplicated; K21.9 Gastro-esophageal reflux disease without esophagitis; G47.30 Sleep apnea, unspecified; F41.9 Anxiety disorder, unspecified; F32.A Depression, unspecified; F12.90 Cannabis use, unspecified, uncomplicated; F43.10 Post-traumatic stress disorder, unspecified; M19.90 Unspecified osteoarthritis, unspecified site; Z79.01 Long term (current) use of anticoagulants; Z87.01 Personal history of pneumonia (recurrent); Z79.899 Other long term (current) drug therapy; Z96.659 Presence of unspecified artificial knee joint; Z98.890 Other specified postprocedural states; Z98.891 History of uterine scar from previous surgery; Z90.89 Acquired absence of other organs
CPT/HCPCS: 36415; 80053; 80202; 85025; 87040; 94761; 96365; 96366; 96368; 99285; G0378; J3370

== ENCOUNTER 2023-12-10 15:27 | Outpatient (OUT) | payer MEDICARE, MEDICAID, SELFPAY ==
[2023-12-10 15:49] LABS: Anion Gap 10.6; BUN Creatinine Ratio 11.8; Calcium 8.7 mg/dL (8.5-10.1); Carbon Dioxide 30.3 mmol/L (21.0-32.0); Chloride 103 mmol/L (98-107); Estimated GFR (African America >60 (>=60); Estimated GFR (Non-African Ame >60 (>=60); Glucose 153 mg/dL (74-106); Potassium 3.9 mmol/L (3.5-5.1); Sodium 140 mmol/L (136-145)
== END 2023-12-10 15:28 | disposition home or self-care (01) ==
LOC: LAB 15:28
PROVIDERS: Visit Provider Internal Medicine Cardiovascular Disease
DX: I10 Essential (primary) hypertension (principal)
CPT/HCPCS: 36415; 80048

== ENCOUNTER 2024-03-23 09:02 | Outpatient (OUT) | payer MEDICARE, MEDICAID, SELFPAY ==
[2024-03-23] MEDS: ALBUTEROL SULFATE 2.5 MG/3 ML VIAL NEB IH (09:50)
--- NOTE | 2024-03-23 10:06 | RT_ITS ---
[facility] Test Date: 2024-03-23 Pat Name: FIDELINA FONTENOT Department: Room: - Gender: Female Manager Commission: Adelaida Batista RRT : 1975 Requested By: Roscoe Phan Order Number: [id number] Reading MD: Roscoe Phan Interpretive Statements Pulmonary function testing was completed according to ATS criteria. Findings were considered accurate and reproducible. Both pre- and post-bronchodilator values utilized for spirometry. Spirometry (based on pre-bronchodilator values): -FEV1/FVC: Reduced @ 64% -FEV1: Moderately reduced @ 53% -FVC: Reduced @ 65% -QXC30-98%: Reduced @ 30% -There is no significant bronchodilator response. Lung volumes by plethysmography: -RV: Increased @ 147% -TLC: Normal @ 99% Diffusion capacity: -DLCO: 79% -DLCO/VA: 87% Flow-volume loop: -Moderately severe obstructive pattern Comparison from 04/10/2022 & 03/23/2017: -FEV1: 53% and 57% respectively -T% and 83% respectively -DLCO: 100% and 94% respectively Impressions: -Spirometry suggests moderate obstruction. There is no bronchodilator response. An elevated RV suggests air trapping. There is a mildly reduced diffusion capacity. When compared to prior PFT, spirometry and lung volumes appear unchanged, but there is a drop in the DLCO. Overall, appears that the patient is developing asthma-COPD overlap from continued tobacco abuse. Clinical correlation required. Electronically Signed On 03-23-2024 13:04:30 EDT by Roscoe Phan
== END 2024-03-23 09:03 | disposition home or self-care (01) ==
PROVIDERS: Visit Provider Internal Medicine
DX: Z12.31 Encounter for screening mammogram for malignant neoplasm of breast (principal); Z80.3 Family history of malignant neoplasm of breast; N63.14 Unspecified lump in the right breast, lower inner quadrant; J45.40 Moderate persistent asthma, uncomplicated
CPT/HCPCS: 77063; 77067; 94060; 94726; 94729

== ENCOUNTER 2024-03-23 09:04 | Outpatient (OUT) | payer MEDICARE, MEDICAID, SELFPAY ==
--- NOTE | 2024-03-23 10:22 | MM_ITS ---
Patient Name: FIDELINA FONTENOT MR#: [id number] : 1975 Exam Date: 03/23/2024 Ordering Doctor: Syl Trotter RADIOLOGY REPORT PROCEDURE: MM TOMOSYNTHESIS SCREENING BI COMPARISON: MM TOMOSYNTHESIS DIAGNOSTIC RT, 12/02/2022. MAMMO POST BIOPSY RIGHT, 06/04/2022. INDICATIONS: Screening mammogram Z12.31 Calculator Name NCI Breast Cancer Risk Assessment Tool 5 Year Breast Cancer Risk 3.00% Lifetime Breast Cancer Risk 25.50% Personal Breast Cancer No Personal Ovarian Cancer No Treatments None Family Cancers Mother with breast cancer at age ~40. LOCATION: [facility] BREAST COMPOSITION: There are scattered areas of fibroglandular density. FINDINGS: DIAGNOSTIC CATEGORY 0--INCOMPLETE: NEED ADDITIONAL IMAGING EVALUATION. Scattered benign-appearing calcifications are present. Scattered benign-appearing lymph nodes are present. RIGHT BREAST: There has been interval increase in size of a well-circumscribed nodule previously biopsied lower inner quadrant of the right breast now measuring 1.15 x 0.72 cm. Consider follow-up spot compression view and ultrasound for further characterization. LEFT BREAST: No significant suspicious finding. RECOMMENDATIONS: ADDITIONAL MAMMOGRAPHIC VIEWS REQUIRED: RIGHT BREAST - spot compression view ULTRASOUND: RIGHT BREAST PLEASE NOTE: A NORMAL MAMMOGRAM DOES NOT EXCLUDE THE POSSIBILITY OF BREAST CANCER. A CLINICALLY SUSPICIOUS PALPABLE LUMP SHOULD BE BIOPSIED. Dictated by: Xavi Stephenson MD on 03/23/2024 at 13:13 Approved by: Xavi Stephenson MD on 03/23/2024 at 13:15
== END 2024-03-23 09:05 | disposition home or self-care (01) ==
LOC: MAMMO 09:04
PROVIDERS: Visit Provider Nurse Practitioner Family
DX: Z12.31 Encounter for screening mammogram for malignant neoplasm of breast (principal); Z80.3 Family history of malignant neoplasm of breast; N63.14 Unspecified lump in the right breast, lower inner quadrant
CPT/HCPCS: 77063; 77067

== ENCOUNTER 2024-04-20 07:50 | Outpatient (OUT) | payer MEDICARE, MEDICAID, SELFPAY ==
--- NOTE | 2024-04-20 07:54 | US_ITS ---
Patient Name: FIDELINA FONTENOT MR#: [id number] : 1975 Exam Date: 04/20/2024 Ordering Doctor: Syl Trotter RADIOLOGY REPORT PROCEDURE: MM DIAGNOSTIC MAMMO UNILAT RT, 04/20/2024, 08:07 US BREAST RT LIMITED, 04/20/2024, 08:41 COMPARISON: US BREAST RT LIMITED, 12/02/2022. MM TOMOSYNTHESIS SCREENING BI, 03/23/2024. MM TOMOSYNTHESIS DIAGNOSTIC RT, 12/02/2022. MAMMO POST BIOPSY RIGHT, 06/04/2022. MG MAMM RT DIAG FU, 05/28/2022. INDICATIONS: Abnormal Mammogram Calculator Name NCI Breast Cancer Risk Assessment Tool 5 Year Breast Cancer Risk 3.00% Lifetime Breast Cancer Risk 25.50% Personal Breast Cancer No Personal Ovarian Cancer No Treatments None Family Cancers Mother with breast cancer at age ~40. LOCATION: [facility] BREAST COMPOSITION: There are scattered areas of fibroglandular density. FINDINGS: DIAGNOSTIC CATEGORY 3--PROBABLY BENIGN FINDING. THE FOLLOWING FINDING(S) HAS A HIGH PROBABILITY OF A BENIGN ETIOLOGY: RIGHT BREAST: Spot magnification views demonstrate persistence of a bilobed mass with biopsy marker clip within the lower midline breast, approximately 12 x 7 millimeters. Ultrasound evaluation demonstrates what appears to be a 7 x 6 x 5 mm heterogeneous hypoechoic mass at the 7 o'clock position with adjacent biopsy marker clip with surrounding hydro gel marker, and likely accounts for the appearance of a larger mass on today's study. This could also represent incorporation of the marker clip into the mass. Re-biopsy of the lesion via ultrasound guidance could be performed if clinically indicated, however, recommendation is for follow-up mammography and ultrasound evaluation in 6 months to document stability. RECOMMENDATIONS: SHORT TERM FOLLOW-UP DIAGNOSTIC MAMMOGRAM RIGHT BREAST IN 6 MONTHS. SHORT TERM FOLLOW-UP ULTRASOUND RIGHT BREAST IN 6 MONTHS. PLEASE NOTE: A NORMAL MAMMOGRAM DOES NOT EXCLUDE THE POSSIBILITY OF BREAST CANCER. A CLINICALLY SUSPICIOUS PALPABLE LUMP SHOULD BE BIOPSIED. Dictated by: Michael Orantes M.D. on 04/20/2024 at 09:03 Approved by: Michael Orantes M.D. on 04/20/2024 at 09:12
--- OUTSIDE RECORDS SUMMARY | 2024-04-20 07:54 | XMS_ITS | CCD ---
Author Organization [facility] Care Team Providers Care Registered Nurse Supervisor Name Role Phone Unavailable Primary Care Provider Unavailabl e Faisal Nix MD, [facility] Primary Care Provider KULWANT ARENAS Referring Unavailable [...] DONNIE Referring Unavailable Rick STAPLES Attending Unavailable NILL, Rick Contreras Attending Unavailable Mingo Thapa Primary Care Provider SHAMMO, DONNIE Admitting Unavailable SHAMMO, DONNIE Attending Unavailable SHAMMO, DONNIE Primary Care Unavailable AGUSTIN ADAMSON Consulting Unavailable SHAMMO, DONNIE Consulting Unavailable SHAMMO, DONNIE Admitting Unavailable SHAMMO, DONNIE Attending Unavailable SHAMMO, DONNIE Primary Care Unavailable SHAMMO, DONNIE Consulting Unavailable SHAMMO, DONNIE Primary Care Unavailable REQUEST, NONE LISTED Consulting Unavaila ble REQUEST, NONE LISTED Attending Unavaila ble REQUEST, NONE LISTED Admitting Unavaila ble SHAMMO, DONNIE Admitting Unavailable SHAMMO, DONNIE Attending Unavailable SHAMMO, DONNIE Primary Care Unavailable SHAMMO, DONNIE Consulting Unavailable SHAMMO, DONNIE Primary Care Unavailable HAY ., DR AVILES Consulting Unavailable HAY ., DR AVILES Attending Unavailable HAY ., DR AVILES Admitting Unavailable LILIANAWILFRIDO Consulting Unavailable SHAMMO, DONNIE Admitting Unavailable SHAMMO, [...] DONNIE Primary Care Unavailable ZIEBER, DR GILL Conterras Consulting Unavailable SHAMMO, DONNIE Consulting Unavailable SHAMMO, [...] Attending Unavailable SHAMMO, DONNIE Admitting Unavailable 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 M Attending Unavailable ALIS MENDEZ Attending Unavailable ADELAIDA SUBRAMANIAN Attending Unavailable OVITT, CASANDRA Attending Unavailable MEDINA MONTES Attending Unavailable ROXANEBRITTNEY Attending Unavailable ROXANE, BRITTNEY Attending Unavailable HAILE NAJERA Attending Unavailable OVITT, CASANDRA Referring Unavailable OVITT, CASANDRA Referring Unavailable HUGO, VALORIE Referring Unavailable MEDINA MONTES Attending Unavailable KIM GARCIA Attending Unavailable MEDINA MONTES Attending Unavailable MEDINA MONTES Attending Unavailable Allergies Allergy Classification Reported Allergen(s) Allergy Type Date of Onset Reaction(s) Facility (7 sources) Doxycycline; Translations: [DOXYCYCLINE] Drug Allergy 7 [facility] [employer] [facility] (8 sources) Oxytocin; Translations: [OXYTOCIN] Drug Allergy 4 Anaphylaxis [facility] Work Phone: (7 sources) SUMAtriptan; Translations: [SUMATRIPTAN] Drug Allergy 7 Other (See Comments) [employer] Work Phone: (1 source) Desonide Drug Allergy 1 [facility] (3 sources) Doxycycline Drug Allergy 0 [facility] (4 sources) Morphine; Translations: [MORPHINE] Drug Allergy 7 [facility] (4 sources) NSAIDs; Translations: [NSAIDS (NON-STEROIDAL ANTI-INFLAMMATO RY DRUG)] Drug allergy (disorder) 0 [facility] (2 sources) Oxytocin Drug Allergy 0 Unknown [facility] (4 sources) Plasmin Drug Allergy 9 Unknown [facility] (3 sources) Doxycycline Drug Allergy 7 [facility] (4 sources) Non-steroidal anti-inflammato ry agent Drug Allergy 7 Other: See Comments [facility] (3 sources) SUMAtriptan Drug Allergy 7 Other: See Comments [facility] (2 sources) Oxytocin Drug Allergy 6 [facility] Rep[facility] (5 sources) dulaglutide; Translations: [DULAGLUTIDE] Drug Allergy 3 Nausea And Vomiting [facility] (1 source) dulaglutide Drug Allergy vomiting [place] [facility] Other (1 source) ADHESIVE TAPE-SILICONES; Translations: [ADHESIVE TAPE-SILICONES] Propensity to adverse reactions to drug (disorder) 4 [facility] Medications Current Medications Medication Drug Class(es) Dates Sig (Normalized) Sig (Original) [id number] 200 actuat albuterol 0.09 mg/actuat metered dose inhaler (5 sources) beta2-Adrenergic Agonist Start: 01-14-2024 Albuterol Sulfate Active INHALATION January 14, 2024 12:00am Start: 05-16-2022 take 2 puff(s) by mo uth every four hours albuterol HFA (PROVENTIL HFA, [...] HOURS IF NEEDED FOR SHORTNESS OF BREATH amoxicillin 875 mg / clavulanate 125 mg oral tablet (1 source) Penicillin-class Antibacterial Start: 04-14-20 take 1 tablet by mouth every twelve hours Amoxicillin-Pot Clavulanate Active 1 TAB PO Every 12 hours 10 04April 14, 2024 12:00am apixaban 5 mg oral tablet (2 sources) Factor Xa Inhibitor Start: 01-14-20 Apixaban (Eliquis) 5 mg tablet Active 5 MG PO January 14, 2024 12:00am atorvastatin 10 mg oral tablet (3 sources) HMG-CoA Reductase Inhibitor Start: 01-14-20 Atorvastatin Active 10 MG PO January 14, 2024 12:00am Start: 05-20-2022 take 1 tablet by raz th in the morning atorvastatin (LIPITOR) 10 mg tablet Indications: Tobacco abuse , Dyslipidemia Take 1 tablet (10 mg total) by mouth in the morning. 90 tablet 2 05/20/2022 Active busPIRone hydrochloride 10 m g oral tablet (6 sources) Start: 01-14-2024 Buspirone Acti ve 10 MG PO January 14, 2024 12:00am Start: 10-15-2021 take 1 tablet by raz th twice daily busPIRone (BUSPAR) 15 MG tablet take 1 tablet by mouth twice a day 0 10/15/2021 Active Comment on above: Take 15 mg by mouth twice daily. calcium chloride 0.0014 meq/ml / potassium chloride 0.004 meq/ml / sodium chloride 0.103 meq/ml / sodium lactate 0.028 meq/ml injectable solution (1 source) Start: 03-05-2023 lactated ringers IV soln infusion cariprazine 4.5 mg oral capsule (7 sources) Atypical Antipsychotic Start: 01-14-2024 Cariprazine (Vraylar) 4.5 mg capsule Active 4.5 MG PO January 14, 2024 12:00am Start: 10-16-2021 take 1 capsule by mo uth once daily VRAYLAR 3 MG CAPS capsule take 1 capsule by mouth by mouth once daily 0 10/16/2021 Active take 4.5 mg by mouth in the morning cariprazine (VRAYLAR) 3 mg capsule Take 4.5 mg by mouth in the morning. 0 Active Vraylar Active take 1 capsule by mo uth once daily cariprazine (VRAYLAR) 4.5 mg capsule Take 4.5 [...] Dilaudid-HP (1 source) Dilaudid-HP Acti ve DULoxetine 20 mg delayed release oral capsule (8 sources) Serotonin and Norepinephrine Reuptake Inhibitor Start: 024 take 1 capsule by mouth twice daily Duloxetine (Cymbalta) 20 mg capsule,delayed release(DR/EC) Active 1 CAP PO Twice daily January 14, 2024 12:00am FreeTextSi capsule Orally Twice a day; Note: Source Status: Taking; Provider: Franklin Garza ( ) take 1 capsule by mo uth in the morning, then take 1 capsule by mouth at bedtime DULoxetine (CYMBALTA) 60 mg capsule Take 1 capsule (60 mg total) by mouth in the morning and 1 capsule (60 mg total) before bedtime. 0 Active take 1 capsule by mo prh every twelve hours Cymbalta 20 MG 1 [...] mcg folic acid 1 mg oral tablet (5 sources) Start: 01-14-2024 take 1 tablet by mouth once daily Folic Acid Active 1 TAB PO Daily January 14, 2024 12:00am FreeTextSi tablet Orally Once a day; Note: Source Status: Taking; Provider: Franklin Garza ( ) take 1 tablet by raz every twenty-four hours Folic Acid 1 MG [...] 20 mg by mouth once daily. lamoTRIgine 100 mg oral tablet (4 sources) Mood Stabilizer, Anti-epileptic Agent Start: 01-14-2024 Lamotrigine Active 100 MG PO January 14, 2024 12:00am take 1 tablet by mouth in the mo rning lamoTRIgine (LaMICtal) 25 mg tablet Take 1 tablet (25 mg total) by mouth in the morning. 0 Active Comment on above: Take 25 mg by mouth once daily. 10 ml lidocaine hydrochloride 10 mg/ml injection (1 source) Antiarrhythmic, Amide Local Anesthetic Start: 3 End: 3 lidocaine PF 1 % injection 1 mL Lisinopril (1 source) Angiotensin Converting Enzyme Inhibitor Lisinopril Active metFORMIN (2 sources) Biguanide Start: 4 Metformin Active MG PO January 14, 2024 12:00am methotrexate 2.5 mg oral tablet (4 sources) Folate Analog Metabolic Inhibitor Start: 4 take 2.5 mg by mouth every week Methotrexate Sodium Active 2.5 MG PO every week April 14, 2024 12:00am Start: 01-14-2024 End: 04-14-2024 take 5 mg by mouth every week Methotrexate Sodium Disc ontinued 5 MG PO every week January 14, 2024 12:00am April 14, 2024 12:08pm Methotrexate Sod ium 5 MG as directed Orally Active 24 hr metoprolol succinate 25 mg extended release oral tablet (4 sources) beta-Adrenergic Elio Start: 09-04-2021 take 1 tablet by mouth once daily [...] oxyCODONE (ROXICODONE) immediate release tablet 5 mg pantoprazole 40 mg extended release oral tablet (1 source) Proton Pump Inhibitor Start: 4 take 40 mg by mouth once daily Pantoprazole Active 40 MG PO Daily April 14, 2024 12:00am prazosin 1 mg oral capsule (4 sources) alpha-Adrenergic Elio Start: 4 take 1 mg by mouth once daily Prazosin Active 1 MG PO Daily April 14, 2024 12:00am take 1 capsule by mouth once valencia ly prazosin (MINIPRESS) 1 mg capsule Take 1 [...] Take 25 mg by mouth once daily. traZODone hydrochloride 150 mg oral tablet (2 sources) Serotonin Reuptake Inhibitor Start: 01-14-2024 Trazodone Active 150 MG PO January 14, 2024 12:00am Completed/Discontinued Medications Medication Drug Class(es) Dates Sig (Normalized) Sig (Original) acetaminophen 325 mg oral tablet (1 source) take 2 tablets by mouth every six hours as needed acetaminophen (TYLENOL) 325 mg tablet Take 650 mg by mouth every 6 hours as needed. 0 Active Comment on above: Take 650 mg by mouth every 6 hours as needed. amitriptyline hydrochloride 25 mg oral tablet (2 [...] (2 sources) Central Nervous System Stimulant Start: 02-19-2017 take 1 tablet by mouth once daily dextroamphetamine -amphetamine (ADDERALL) 20 mg tablet Take 1 tablet by mouth once daily. 0 02/19/2017 Active Comment on above: Take 1 tablet by raz th once daily. brexpiprazole 2 mg oral tablet [...] to affected area three times daily. capsaicin 0.074895 mg/mg / lidocaine 0.045 mg/mg / menthol 0.1 mg/mg / methyl salicylate 0.275 mg/mg topical ointment (2 sources) Antiarrhythmic, Amide Local Anesthetic lidocain-me.salic [id number] 4.5 %-27.5 %- 0.0325 %-10 % oint Apply to affected area. To bilat knees daily 0 Active Comment on above: Apply to affected ar ea. To bilat knees daily diazePAM 5 mg oral tablet (2 sources) Benzodiazepine Start: 02-19-2017 diazePAM (VALIUM) 5 mg tablet Take 1 tablet by mouth as needed. 30 tablet 0 02/19/2017 Active Comment on above: Take 1 tablet by raz as needed. diclofenac sodium 75 mg extended [...] mg Not-Taking/PRN take 1 capsule by mo [facility] once daily, then take 4 capsules by [...] Comment on above: INHALE 1 PUFF BY RZA TH ONCE DAILY - - RINSE MOUTH [...] Seed Oil 10 00 MG Orally Not-Taking/PRN omeprazole 20 mg delayed release oral capsule (2 sources) Proton Pump Inhibitor Start: 01-14-20 End: 04-14-20 24 Omeprazole Discontinued 20 MG PO January 14, 2024 12:00am April 14, 2024 12:08pm 30 actuat umeclidinium 0.0625 mg/actuat / vilanterol 0.025 mg/actuat dry powder inhaler (2 sources) Anticholinergic, beta2-Adrenergic Agonist umeclidinium-vilante r ol (ANORO ELLIPTA) 62.5-25 mcg/actuation inhaler Inhale 1 [...] Active Problems Problem Classification Problem Date Documented Da te Episodic/Chronic Anxiety disorders (1 source) Panic disorder; Translations: [Panic disorder [episodic paroxysmal anxiety]] Onset: 7 03-12-2017 Chronic Chronic obstructive pulmonary disease and bronchiectasis (6 sources) Chronic obstructive pulmonary disease, unspecified; Translations: [Emphysema, unspecified] Onset: 2 Chronic Congestive heart failure; nonhypertensive (4 sources) Acute combined systolic (congestive) and diastolic (congestive) heart failure; Translations: [Chronic diastolic (congestive) heart failure] Onset: 4 Chronic Diabetes mellitus without complication (1 source) Prediabetes; Translations: [PREDIABETES] Onset: 3 Episodic Disorders of lipid metabolism (3 sources) Dyslipidemia; Translations: [Hyperlipidemia, unspecified] Onset: 2 10-29-2021 Chronic Essential hypertension (2 sources) Essential (primary) hypertension; Translations: [Essential (primary) hypertension] Onset: 2 Chronic Hypertension with complications and secondary hypertension (2 sources) Hypertensive heart disease with heart failure; Translations: [Hypertensive heart disease with heart failure] Onset: 4 Chronic Immunizations and screening for infectious disease (1 source) Encounter for screening for human immunodeficiency virus [HIV]; Translations: [ENCOUNTER FOR SCREENING FOR HIV] Onset: 3 Episodic Menstrual disorders (1 source) Irregular periods; Translations: [Irregular menstruation, unspecified] Chronic Mood disorders (2 sources) Recurrent major depressive episodes, moderate ; Translations: [Major depressive disorder, recurrent, moderate] Onset: 7 02-04-2017 Chronic Nonmalignant breast conditions (1 source) Diffuse cystic mastopathy of right breast; Translations: [DIFFUSE CYSTIC MASTOPATHY RT BREAST] Onset: 2 Chronic Osteoarthritis (13 sources) Unilateral primary osteoarthritis, right knee; Translations: [Bilateral primary osteoarthritis of knee] Onset: 2 Chronic Other connective tissue disease (3 sources) Other specified soft tissue disorders; Translations: [OTHER SPEC SOFT TISSUE DISORDERS] Onset: 3 Episodic Other diseases of veins and lymphatics (4 sources) Venous insufficiency (chronic) (peripheral); Translations: [VENOUS INSUFF CHRONIC PERIPHERAL] Onset: 3 Episodic Other hematologic conditions (1 source) Elevated erythrocyte sedimentation rate; Translations: [ELEVATED ERYTHROCYTE SED RATE] Onset: 3 Episodic Other nervous system disorders (1 source) Other chronic pain; Translations: [OTHER CHRONIC PAIN] Onset: 3 Chronic Other nervous system disorders (2 sources) Carpal tunnel syndrome, bilateral upper limbs; Translations: [Carpal tunnel syndrome, bilateral upper limbs] Onset: 4 Chronic Other non-traumatic joint disorders (4 sources) Pain in right knee; Translations: [PAIN IN RIGHT KNEE] Onset: 2 Episodic Other non-traumatic joint disorders (1 source) Effusion, right knee; Translations: [EFFUSION, RIGHT KNEE] Onset: 2 Episodic Other non-traumatic joint disorders (4 sources) Pain in unspecified joint; Translations: [PAIN IN UNSPECIFIED JOINT] Onset: 3 Episodic Other nutritional; endocrine; and metabolic disorders (1 source) Body mass index (BMI) 40.0-44.9, adult; Translations: [BODY MASS INDEX BMI 40.0-44.9 ADULT] Onset: 2 Chronic Other nutritional; endocrine; and metabolic disorders (1 source) Body mass index 40+ - severely obese; Translations: [Body mass index (BMI) 40.0-44.9, adult] Onset: 2 10-29-2021 Chronic Other nutritional; endocrine; and metabolic disorders (2 sources) Morbid (severe) obesity due to excess calories; Translations: [Morbid (severe) obesity due to excess calories] Onset: 4 Chronic Other nutritional; endocrine; and metabolic disorders (2 sources) Body mass index (BMI) 50.0-59.9, adult; Translations: [Body mass index (BMI) 50.0-59.9, adult] Onset: 4 Chronic Other screening for suspected conditions (not mental disorders or infectious disease) (12 sources) Elevated C-reactive protein (CRP); Translations: [Other abnormal and inconclusive findings on diagnostic imaging of breast] Onset: 2 Episodic Other skin disorders (4 sources) Localized swelling, mass and lump, right lower limb; Translations: [LOC SWELL MASS LUMP RT LOWER LIMB] Onset: 3 Episodic Suzanne-; endo-; and myocarditis; cardiomyopathy (except that caused by tuberculosis or sexually transmitted disease) (2 sources) Cardiomyopathy in diseases classified elsewhere; Translations: [Cardiomyopathy in diseases classified elsewhere] Onset: 4 Chronic Phlebitis; thrombophlebitis and thromboembolism (3 sources) Acute embolism and thrombosis of other specified deep vein of right lower extremity; Translations: [Deep venous thrombosis] Onset: 4 Episodic Residual codes; unclassified (2 sources) Obstructive sleep apnea (adult) (pediatric); Translations: [Obstructive sleep apnea (adult) (pediatric)] Onset: 4 Chronic Rheumatoid arthritis and related disease (4 sources) Rheumatoid arthritis without rheumatoid factor, unspecified site; Translations: [Rheumatoid arthritis, unspecified] Onset: 4 Chronic Skin and subcutaneous tissue infections (2 sources) Cellulitis of right lower limb; Translations: [Cellulitis, unspecified] Onset: 3 Episodic Spondylosis; intervertebral disc disorders; other back problems (6 sources) Postlaminectomy syndrome, not elsewhere classified; Translations: [POSTLAMINECTOMY SYNDROME NEC] Onset: 2 Chronic Substance-related disorders (3 sources) Nicotine dependence, cigarettes, uncomplicated; Translations: [Nicotine dependence, unspecified, uncomplicated] Onset: 3 Chronic Unclassified (2 sources) XR Onset: 2 Unclassified (1 source) PRIMARY OSTEOARTHRITS OTH SPEC SITE; Translations: [PRIMARY OSTEOARTHRITS OTH SPEC SITE] Onset: 3 Unclassified (1 source) 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; Translations: [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] Onset: 4 Past or Other Problems Problem Classification Problem [...] pain, unspecified] Onset: 10-29-2021 10-29-2021 Episodic Other acquired deformities (2 sources) Spondylolisthesis, lumbar region; Translations: [Spondylolisthesis, lumbar region] Onset: 09-03-2023 Episodic Other aftercare (2 sources) Other snf (current) drug therapy; Translations: [Other snf (current) drug therapy] Onset: 04-27-2023 Episodic Other connective tissue disease (1 source) Myalgia, unspecified site; Translations: [MYALGIA UNSPECIFIED SITE] Onset: 07-23-2022 Episodic Other lower respiratory disease (2 sources) Other forms of dyspnea; Translations: [Other forms of dyspnea] Onset: 08-25-2023 Episodic Residual codes; unclassified (1 source) Family history of malignant neoplasm of breast; Translations: [FAMILY HX MALIG NEOPLASM OF BREAST] Onset: 05-31-2022 Episodic Residual codes; unclassified (1 source) Tobacco user; Translations: [Tobacco use] Onset: 10-29-2021 10-29-2021 Episodic Syncope (1 source) Syncope; Translations: [Syncope and collapse] Onset: 10-29-2021 10-29-2021 Episodic Unclassified (1 source) 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; Translations: [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] Onset: 07-30-2023 Results Test Name Value Interpretation Reference Range Facility CBC WITH AUTO DIFFERENTIALon 02-04-2024 Basophils (Bld) [#/Vol] 0.03 10*3/uL Normal 0.00-0.20 [facility] Comment on above: Performed By: #### L [id number] ####[facility] (BEAKER)[address] [place] [address] Basophils/100 WBC (Bld) 0.5 % Normal 0.0-1.0 [facility] Comment on above: Performed By: #### L [id number] ####[facility] (BEAKER)[address] [place] [address] Eosinophils (Bld) [#/Vol] 0.12 10*3/uL Normal 0.00-0.50 [facility] Comment on above: Performed By: #### L [id number] ####[facility] (BEAKER)[address] [place] [address] Eosinophils/100 WBC (Bld) 1.9 % Normal 0.0-6.0 [facility] Comment on above: Performed By: #### L [id number] ####[facility] (BEAKER)[address] [place] [address] Erythrocyte distribution width (RBC) [Ratio] 17.5 % High 11.5-15.0 [facility] Comment on above: Performed By: #### L [id number] ####[facility] (BEAKER)[address] [place] [address] ERYTHROCYTE MEAN CORPUSCULAR HEMOGLOBIN CONCENTRATION (G/DL) BY AUTOMATED 31.3 g/dL Low 32.0-35.0 [facility] Comment on above: Performed By: #### L [id number] ####[facility] (BEAKER)[address] [place] [address] Hematocrit (Bld) [Volume fraction] 42.2 % Normal 36.0-48.0 [facility] Comment on above: Performed By: #### L [id number] ####[facility] (BEAKER)[address] [place] [address] Hemoglobin (Bld) [Mass/Vol] 13.2 g/dL Normal 12.0-15.0 [facility] Comment on above: Performed By: #### L [id number] ####[facility] (BEAKER)[address] [place] [address] Immature granulocytes (Bld) [#/Vol] 0.02 10*3/uL Normal 0.00-0.20 [facility] Comment on above: Performed By: #### L [id number] ####[facility] (BEAKER)[address] [place] [address] Immature granulocytes/100 WBC (Bld) 0.3 % Normal 0.0-1.0 [facility] Comment on above: Performed By: #### L [id number] ####[facility] (BEAKER)[address] [place] [address] Lymphocytes (Bld) [#/Vol] 1.60 10*3/uL Normal 1.20-4.00 [facility] Comment on above: Performed By: #### L [id number] ####[facility] (BEAKER)[address] [place] [address] Lymphocytes/100 WBC (Bld) 24.9 % Normal 20.0-45.0 [facility] Comment on above: Performed By: #### L [id number] ####[facility] (BEAKER)[address] [place] [address] MCH (RBC) [Entitic mass] 27.8 pg Normal 27.0-33.0 [facility] Comment on above: Performed By: #### L [id number] ####[facility] (BEAKER)[address] [place] [address] MCV (RBC) [Entitic vol] 89.0 fL Normal 82.0-98.0 [facility] Comment on above: Performed By: #### L [id number] ####[facility] (BEAKER)[address] [place] [address] Monocytes (Bld) [#/Vol] 0.45 10*3/uL Normal 0.10-1.00 [facility] Comment on above: Performed By: #### L [id number] ####[facility] (BEAKER)[address] [place] [address] Monocytes/100 WBC (Bld) 7.0 % Normal 5.0-12.0 [facility] Comment on above: Performed By: #### L [id number] ####[facility] [place] [address] Neutrophils (Bld) [#/Vol] 4.20 10*3/uL Normal 1.60-7.60 [facility] Comment on above: Performed By: #### L [id number] ####[facility] ([facility])[address] [place], [place] [address] Neutrophils/100 WBC (Bld) 65.4 % Normal 40.0-72.0 [facility] Comment on above: Performed By: #### L [id number] ####[facility] ([facility])[address] [place] [address] NRBC (PER 100 WBCS) BY AUTOMATED COUNT 0.0 % Normal 0 [facility] Comment on above: Performed By: #### L [id number] ####[facility] ([facility])[address] [place] [address] PLATELETS (10*3/UL) IN BLOOD AUTOMATED COUNT 251 10*3/uL Normal 150-400 [facility] Comment on above: Performed By: #### L [id number] ####[facility] ([facility])[address] [place] [address] RBC (Bld) [#/Vol] 4.74 10*6/uL Normal 3.80-5.00 [facility] Comment on above: Performed By: #### L [id number] ####[facility] ([facility])[address] [place] [address] WBC (Bld) [#/Vol] 6.42 10*3/uL Normal 4.00-10.60 [facility] Comment on above: Performed By: #### L [id number] ####[facility] ([facility] [place] [address] COMPREHENSIVE METABOLIC PANE Jamar 02-04-2024 Albumin [Mass/Vol] 4.1 g/dL Normal 3.5-5.7 [facility] Comment on above: Performed By: #### L [id number] ####[facility] (BEAKER)[address] [place] [address] ALP [Catalytic activity/Vol] 78 U/L Normal 34-104 [facility] Comment on above: Performed By: #### L [id number] ####[facility] (BEAKER)[address] [place] [address] ALT [Catalytic activity/Vol] 13 U/L Normal 7-52 [facility] Comment on above: Performed By: #### L [id number] ####[facility] (BEAKER)[address] [place] [address] Anion gap [Moles/Vol] 13 mmol/L Normal 7-20 [facility] Comment on above: Performed By: #### L [id number] ####[facility] ([facility]AKER)[address] [place] [address] AST [Catalytic activity/Vol] 13 U/L Normal 13-39 [facility] Comment on above: Performed By: #### L [id number] ####[facility] ([facility]AK[facility])[address] [place] [address] Bilirubin [Mass/Vol] 0.5 mg/dL Normal 0.3-1.0 [facility] Comment on above: Performed By: #### L [id number] ####[facility] ([facility]AKER)[address] [place] [address] Calcium [Mass/Vol] 8.9 mg/dL Normal 8.6-10.3 [facility] Comment on above: Performed By: #### L [id number] ####[facility] (BEAKER)[address] [place] [address] Chloride [Moles/Vol] 103 mmol/L Normal 98-107 [facility] Comment on above: Performed By: #### L [id number] ####[facility] (BEAKER)[address] [place] [address] CO2 [Moles/Vol] 28 mmol/L Normal 21-31 [facility] Comment on above: Performed By: #### L [id number] ####[facility] ([facility])[address] [place] [address] Creatinine [Mass/Vol] 0.83 mg/dL Normal 0.60-1.20 [facility] Comment on above: Performed By: #### L [id number] ####[facility] ([facility])[address] [place] [address] GLOMERULAR FILTRATION RATE ML/MIN/1.73 SQ M.PREDICTED 85.8 mL/min/1.73m*2 Normal >60.0 [facility] Comment on above: Result Comment: [facility]???s estimated glomerular filtration rate (eGFR) will [...] of individuals. Performed By: #### L [id number] ####[facility] ([facility])[address] [place] [address] Glucose [Mass/Vol] 147 mg/dL High 70-100 [facility] Comment on above: Performed By: #### L [id number] ####[facility] ([facility])[address] [place] [address] Potassium [Moles/Vol] 3.7 mmol/L Normal 3.5-5.1 [facility] Comment on above: Performed By: #### L [id number] ####[facility] ([facility])[address] [place] [address] Protein [Mass/Vol] 6.9 g/dL Normal 6.0-8.3 [facility] Comment on above: Performed By: #### L [id number] ####[facility] ([facility])[address] [place] [address] Sodium [Moles/Vol] 140 mmol/L Normal 136-145 [facility] Comment on above: Performed By: #### L [id number] ####[facility] ([facility])[address] [place] [address] Urea nitrogen [Mass/Vol] 12 mg/dL Normal 7-25 [facility] Comment on above: Performed By: #### L [id number] ####[facility] ([facility])[address] [place] [address] UREA NITROGEN/CREATININE (MASS RATIO) IN SER/PLAS 14.5 Normal [facility] Comment on above: Performed By: #### L [id number] ####[facility] (K[facility])[address] [place] [address] Follow-Upon 02-04-2024 Follow-Up [id number] Jackie Mendoza 1975 Date Provider Department Center 02/04/2024 MEDINA HENRY [facility] Nila Heal Family History Problem Relation Age of Onset Coronary artery disease Mother No Known Problems Father Family Status - Relation Status Age at Mother Notes: cancer brast ca, ovarian, skin, heart disease Father Level of Service:55936 OR OFFICE/OUTPATIENT ESTABLISHED MOD MDM 30 MIN () Reason for Visit and Comments: Follow-up [310883] - 3 month follow up [facility] Orders Onlyon 02-04-2024 Orders Only [id number] Jackie Mendoza 1975 Provider Department Center 02/04/2024 JOEY OLIVIER [facility] Nila Heal Family History Problem Relation Age of Onset Coronary artery disease Mother No Known Problems Father Family Status - Relation Status Age at Mother Notes: cancer brast ca, ovarian, skin, heart disease Father Normal [facility] Office Visiton 12-10-2023 Follow-up visit [id number] Jackie Mendoza 1975 F Date Provider Department Center 12/10/2023 Jaciel-BRITTNEY BETTS [facility] Family History Problem Relation Age of Onset Coronary artery disease Mother No Known Problems Father Family Status - Relation Status Age at Mother Notes: cancer brast ca, ovarian, skin, heart disease Father Level of Service:96487 OR OFFICE/OUTPATIENT ESTABLISHED LOW MDM 20 MIN Normal [facility] Office Visiton 11-02-2023 Follow-up visit [id number] Jackie Mendoza 1975 F Date Provider Department Center 11/02/2023 3848-HAILE [facility]JERA [facility] Family History Problem Relation Age of Onset Coronary artery disease Mother No Known Problems Father Family Status - Relation Status Age at Mother Notes: cancer brast ca, ovarian, skin, heart disease Father Level of Service:22013 OR OFFICE/OUTPATIENT ESTABLISHED LOW MDM 20 MIN Normal [facility] Follow-Upon 10-29-2023 Follow-Up [id number] Jackie Mendoza 1975 Date Provider Department Center 10/29/2023 Patricia-MEDINA MONTES [facility] Nila Heal Family History Problem Relation Age of Onset Coronary artery disease Mother No Known Problems Father Family Status - Relation Status Age at Mother Notes: cancer brast ca, ovarian, skin, heart disease Father Level of Service:49131 OR OFFICE/OUTPATIENT ESTABLISHED MOD MDM 30 MIN Reason for Visit and Comments: Follow-up [[id number]] Normal [facility] DRUG SCREEN, UR-RFLEX CONFIR 10-20-2023 ALCOHOL, UR. Negative Normal (< 10 - [facility]) [facility] Comment on above: Order Comment: FACIL ITY: [facility] [id number] Performed By: #### D S-M+ #### [facility] [address] [facility], [address] AMPHETAMINES, UR. Negative Normal (< 500 - Cutof) [facility] Comment on above: Order Comment: FACIL ITY: [facility] [id number] Performed By: #### D S-M+ #### [facility] [address] [facility], [address] BARBITURATES, UR. Negative Normal (< 300 - Cutof) [facility] Comment on above: Order Comment: FACIL ITY: [facility] [id number] Performed By: #### D S-M+ #### [facility] [address] [place], [address] BENZODIAZEPINES, UR. Negative Normal (< 100 - [facility] Comment on above: Order Comment: [facility] [id number] Performed By: #### D S-M+ #### [facility] [address] [place], [address] COCAINE METAB. UR. Negative Normal (< 150 - [facility]) [facility] Comment on above: Order Comment: [facility] [id number] Performed By: #### D S-M+ #### [facility] [address] [place], [address] CREAT, URINE 113.30 MG/DL Normal (20.00 - 320.0) [facility] Comment on above: Order Comment: [facility]IL ITY[facility] [id number] Performed By: #### D S-M+ #### [facility] [address] [place], [address] FENTANYL, UR SCREEN Positive High (< 1.0 - [facility]) [facility] Comment on above: Order Comment: FACIL ITY: [facility] [id number] Result Comment: FENT ANYL URINE SCREEN = POSITIVE Specimen sent for confirmation testing forfentanyl - [facility] test # [id number] Performed By: #### D S-M+ #### [facility] [address] [place], [address] HEROIN METAB. UR. Negative Normal (< 10 - [facility]) [facility] Comment on above: Order Comment: FACIL ITY: [facility] [id number] Performed By: #### D S-M+ #### [facility] [address] [place], [address] METHADONE METAB. UR. Negative Normal (< 100 - Cutof) [facility] Comment on above: Order Comment: FACIL ITY: [facility] [id number] Performed By: #### D S-M+ #### [facility] [address] [place], [address] OPIATES, UR. Negative Normal (< 100 - Cutof) [facility] Comment on above: Order Comment: FACIL ITY: [facility] [id number] Performed By: #### D S-M+ #### [facility] [address] [place], [address] OXYCODONE, UR. Negative Normal (< 100 - Cutof) [facility] Comment on above: Order Comment: FACIL ITY: [facility] [id number] Performed By: #### Ari S-M+ #### [facility] [address] [place], [address] pH (U) 5.0 [pH] Normal (5.0 - 9.0) [facility] Comment on above: Order Comment: FACIL ITY: [facility] [id number] Performed By: #### Ari S-M+ #### [facility] [address] [place], [address] PHENCYCLIDINE, UR. Negative Normal (< 25 - Cutof) [facility] Comment on above: Order Comment: FACIL ITY: [facility] [id number] Performed By: #### D S-M+ #### [facility] [address] [place], [address] THC METABOLITE, UR. Positive High (< 20 - Cutof) [facility] Comment on above: Order Comment: FACIL ITY: [facility] [id number] Result Comment: THC METABOLITE URINE SCREEN = POSITIVE Specimen sent for confirmation testing for THC - [facility] test # [id number] Performed By: #### D S-M+ #### [facility] [address] [place], [address] TRAMADOL, UR SCREEN Negative Normal (< 200 - Cutof) [facility] Comment on above: Order Comment: FACIL ITY: [facility] [id number] Result Comment: This drug testing is for medical treatment only. Analysis was performed as non-forensic testing and the results should be used only by healthcare providers to render diagnosis or treatment, or to monitor the progress of medical conditions. Performed By: #### D S-M+ #### [facility] [address] [facility], [address] 36on 09-30-2023 36 Requested. Pt notifi ed of obtaining clearances from pulm and PCP. [facility] 36 Cleared by rheum. Wi ll need to hold methotrexate 1 week prior and after surgery per Dr. Estrada. PCP and Pulm clearances faxed. Pulm called stating that pt has missed or rescheduled multiple appts, but is scheduled for 10/06. I called and updated pt that we have requested imaging from [place] and that she has an appt with pulm on 10/06 that she will need to attend to obtain clearance, and to call PCP's office to notify of clearance request, will most likely need to be seen prior to clearance. Pt verbalized understanding. [facility] 36on 09-09-20[address] [...] with him next week (09/16) for hysterectomy. [facility] 36 Regarding echo performed on 09/07/2023: Ginny, [...] have uploaded the records into her media traffic manager for your review. She's awaiting surgery clearance for hysterectomy scheduled for next week. [facility] Documentationon 09-09-2023 Documentation [id number] Jackie Mendoza 1975 F Date Provider Department Center 09/09/2023 BRITTNEY DEAL [facility] Family History Problem Relation Age of Onset Coronary artery disease Mother No Known Problems Father Family Status - Relation Status Age at Mother Notes: cancer brast ca, ovarian, skin, heart disease Father [facility] 36on 09-07-2023 36 Per Luz in radiolo gy scheduling, pt requested CT order to be faxed to [facility]. Order faxed to [facility]. [facility] 36on 09-04-2023 36 Spoke with patient. 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 Will need instructions from her appeals court associate justice regarding holding her methotrexate before and after surgery. Encouraged her to take what ever time she would like to decide, though patient reports she would like to proceed as soon as possible. [facility] 36 Dr. Arias case. Dx: Degenerative lumbar stenosis, lumbar spondylolisthesis. Procedure: Removal of L4-S1 hardware, laminectomy L2-L3, posterior instrumented fusion L2-L4. Time: 5 hours. Position: prone on open Johnny. Needs: [employer] rep, O arm, universal removal set, Stealth. Needs PCP clearance and pulm clearance--has new PCP, same office; pulm is Dr. Elizabeth Phan in [place]. Will need to check with her appeals court associate justice Dr. Estrada here to see if her methotrexate needs to be held before or after surgery. Will need CT lumbar prior to surgery to evaluated bone fusion-- I will order this. Will need bone stimulator after surgery--will order. Thank you. Normal [facility] Telephoneon 09-04-2023 Telephone [id number] Jackie Mendoza 1975 F Date Provider Department Center 09/04/2023 148-OVITT, [facility] [place] Family History Problem Relation Age of Onset Coronary artery disease Mother No Known Problems Father Family Status - Relation Status Age at Mother Notes: cancer brast ca, ovarian, skin, heart disease Father Normal [facility] Consulton 09-03-2023 Consult [id number] Jackie Mendoza 1975 Date Provider Department Center 09/03/2023 148-MARY, [facility] [place] Family History Problem Relation Age of Onset Coronary artery disease Mother No Known Problems Father Family Status - Relation Status Age at Mother Notes: cancer brast ca, ovarian, skin, heart disease Father Level of Service:75835 OR OFFICE/OUTPATIENT NEW MODERATE MDM 45 MINUTES Reason for Visit and Comments: Consult [474] - Pt is here for a CO visit for Failed Back Syndrome. Normal [facility] Office Visiton 08-25-2023 Follow-up visit [id number] Jackie Mendoza 1975 Date Provider Department Center 08/25/2023 Jaciel-BRITTNEY BETTS [facility] Family History Problem Relation Age of Onset Coronary artery disease Mother No Known Problems Father Family Status - Relation Status Age at Mother Notes: cancer brast ca, ovarian, skin, heart disease Father Level of Service:82082 OR OFFICE/OUTPATIENT NEW MODERATE MDM 45 MINUTES [facility] Follow-Upon 07-30-2023 Follow-Up [id number] Jackie Mendoza 1975 F Date Provider Department Center 07/30/2023 Patricia-KAHALEH, BASHAR M [facility] Nila Heal Family History Problem Relation Age of Onset No Known Problems Father Family Status - Relation Status Age at Mother Notes: cancer brast ca, ovarian, skin, heart disease Father Level of Service:72224 OR OFFICE/OUTPATIENT ESTABLISHED MOD MDM 30 MIN () Reason for Visit and Comments: Follow-up [[id number]] [facility] 36on 07-28-2023 36 Letter will be at Check out Desk [facility] 36 Pt contacted, requested to pick letter up on 07/30/23 at her appointment [facility] 36on 07-27-2023 36 Pt is asking if it i s possible for her to have a note for work that excuses her on 07/23/23, 07/24/23 and 07/27/23; because of the great pain she has experienced. Normal [facility] CBC WITH AUTO DIFFERENTIALon 07-27-2023 Basophils (Bld) [#/Vol] 0.07 10*3/uL Normal 0.00-0.20 [facility] Comment on above: Performed By: #### L [id number] ####[facility] (BEAKER)[address] [place] [address] Basophils/100 WBC (Bld) 0.8 % Normal 0.0-1.0 [facility] Comment on above: Performed By: #### L [id number] ####[facility] (BEAKER)[address] [place] [address] Eosinophils (Bld) [#/Vol] 0.10 10*3/uL Normal 0.00-0.50 [facility] Comment on above: Performed By: #### L [id number] ####[facility] (BEAKER)[address] [place] [address] Eosinophils/100 WBC (Bld) 1.2 % Normal 0.0-6.0 [facility] Comment on above: Performed By: #### L [id number] ####[facility] (BEAKER)[address] [place] [address] Erythrocyte distribution width (RBC) [Ratio] 15.9 % High 11.5-15.0 [facility] Comment on above: Performed By: #### L [id number] ####[facility] (BEAKER)[address] [place] [address] ERYTHROCYTE MEAN CORPUSCULAR HEMOGLOBIN CONCENTRATION (G/DL) BY AUTOMATED 32.8 g/dL Normal 32.0-35.0 [facility] Comment on above: Performed By: #### L [id number] ####[facility] (BEAKER)[address] [place] [address] Hematocrit (Bld) [Volume fraction] 41.5 % Normal 36.0-48.0 [facility] Comment on above: Performed By: #### L [id number] ####[facility] (BEAKER)[address] [place] [address] Hemoglobin (Bld) [Mass/Vol] 13.6 g/dL Normal 12.0-15.0 [facility] Comment on above: Performed By: #### L [id number] ####[facility] (BEAKER)[address] [place] [address] Immature granulocytes (Bld) [#/Vol] 0.02 10*3/uL Normal 0.00-0.20 [facility] Comment on above: Performed By: #### L [id number] ####[facility] (BEAKER)[address] [place] [address] Immature granulocytes/100 WBC (Bld) 0.2 % Normal 0.0-1.0 [facility] Comment on above: Performed By: #### L [id number] ####[facility] (BEAKER)[address] [place] [address] Lymphocytes (Bld) [#/Vol] 1.89 10*3/uL Normal 1.20-4.00 [facility] Comment on above: Performed By: #### L [id number] ####[facility] (BEAKER)[address] [place] [address] Lymphocytes/100 WBC (Bld) 22.5 % Normal 20.0-45.0 [facility] Comment on above: Performed By: #### L [id number] ####[facility] (BEAKER)[address] [place] [address] MCH (RBC) [Entitic mass] 28.8 pg Normal 27.0-33.0 [facility] Comment on above: Performed By: #### L [id number] ####[facility] [place] [address] MCV (RBC) [Entitic vol] 87.7 fL Normal 82.0-98.0 [facility] Comment on above: Performed By: #### L [id number] ####[facility] ([facility] [place] [address] Monocytes (Bld) [#/Vol] 0.61 10*3/uL Normal 0.10-1.00 [facility] Comment on above: Performed By: #### L [id number] ####[facility] ([facility] [place] [address] Monocytes/100 WBC (Bld) 7.3 % Normal 5.0-12.0 [facility] Comment on above: Performed By: #### L [id number] ####[facility] (BEAKER)[address] [place] [address] Neutrophils (Bld) [#/Vol] 5.71 10*3/uL Normal 1.60-7.60 [facility] Comment on above: Performed By: #### L [id number] ####[facility] (BEAKER)[address] [place] [address] Neutrophils/100 WBC (Bld) 68.0 % Normal 40.0-72.0 [facility] Comment on above: Performed By: #### L [id number] ####[facility] (BEAKER)[address] [place] [address] NRBC (PER 100 WBCS) BY AUTOMATED COUNT 0.0 % Normal 0 [facility] Comment on above: Performed By: #### L [id number] ####[facility] (BEAKER)[address] [place] [address] PLATELETS (10*3/UL) IN BLOOD AUTOMATED COUNT 240 10*3/uL Normal 150-400 [facility] Comment on above: Performed By: #### L [id number] ####[facility] ([facility])[address] [place] [address] RBC (Bld) [#/Vol] 4.73 10*6/uL Normal 3.80-5.00 [facility] Comment on above: Performed By: #### L [id number] ####[facility] ([facility])[address] [place] [address] WBC (Bld) [#/Vol] 8.40 10*3/uL Normal 4.00-10.60 [facility] Comment on above: Performed By: #### L [id number] ####[facility] ([facility])[address] [place] [address] COMPREHENSIVE METABOLIC PANE Jamar 07-27-2023 Albumin [Mass/Vol] 4.3 g/dL Normal 3.5-5.7 [facility] Comment on above: Performed By: #### L [id number] ####[facility] ([facility])[address] [place] [address] ALP [Catalytic activity/Vol] 80 U/L Normal 34-104 [facility] Comment on above: Performed By: #### L [id number] ####[facility] ([facility])[address] [place] [address] ALT [Catalytic activity/Vol] 13 U/L Normal 7-52 [facility] Comment on above: Performed By: #### L [id number] ####[facility] ([facility])[address] [place] [address] Anion gap [Moles/Vol] 11 mmol/L Normal 7-20 [facility] Comment on above: Performed By: #### L [id number] ####[facility] ([facility])[address] [place] [address] AST [Catalytic activity/Vol] 14 U/L Normal 13-39 [facility] Comment on above: Performed By: #### L [id number] ####[facility] ([facility])[address] [place] [address] Bilirubin [Mass/Vol] 0.4 mg/dL Normal 0.3-1.0 [facility] Comment on above: Performed By: #### L [id number] ####[facility] ([facility])[address] [place] [address] Calcium [Mass/Vol] 9.0 mg/dL Normal 8.6-10.3 [facility] Comment on above: Performed By: #### L [id number] ####[facility] ([facility])[address] [place] [address] Chloride [Moles/Vol] 105 mmol/L Normal 98-107 [facility] Comment on above: Performed By: #### L [id number] ####[facility] ([facility])[address] [place] [address] CO2 [Moles/Vol] 26 mmol/L Normal 21-31 [facility] Comment on above: Performed By: #### L [id number] ####[facility] ([facility])[address] [place] [address] Creatinine [Mass/Vol] 0.79 mg/dL Normal 0.60-1.20 [facility] Comment on above: Performed By: #### L [id number] ####[facility] ([facility])[address] [place] [address] GLOMERULAR FILTRATION RATE ML/MIN/1.73 SQ M.PREDICTED 91.1 mL/min/1.73m*2 Normal >60.0 [facility] Comment on above: Result Comment: [facility]???s estimated glomerular filtration rate (eGFR) will [...] of individuals. Performed By: #### L [id number] ####[facility] ([facility])[address] [place] [address] Glucose [Mass/Vol] 96 mg/dL Normal 70-100 [facility] Comment on above: Performed By: #### L [id number] ####[facility] ([facility])[address] [place] [address] Potassium [Moles/Vol] 3.9 mmol/L Normal 3.5-5.1 [facility] Comment on above: Performed By: #### L [id number] ####[facility] ([facility])[address] [place] [address] Protein [Mass/Vol] 6.9 g/dL Normal 6.0-8.3 [facility] Comment on above: Performed By: #### L [id number] ####[facility] ([facility])[address] [place] [address] Sodium [Moles/Vol] 138 mmol/L Normal 136-145 [facility] Comment on above: Performed By: #### L [id number] ####[facility] ([facility])[address] [place] [address] Urea nitrogen [Mass/Vol] 14 mg/dL Normal 7-25 [facility] Comment on above: Performed By: #### L [id number] ####[facility] ([facility])[address] [place] [address] UREA NITROGEN/CREATININE (MASS RATIO) IN SER/PLAS 17.7 Normal [facility] Comment on above: Performed By: #### L [id number] ####[facility] ([facility])[address] [place] [address] Follow-Upon 07-27-2023 Follow-Up [id number] Jackie Mendoza 1975 F Date Provider Department Center 07/27/2023 317MEDINA HOFFMAN [facility] Nila Heal Family History Problem Relation Age of Onset No Known Problems Father Family Status - Relation Status Age at Mother Notes: cancer brast ca, ovarian, skin, heart disease Father Level of Service:08377 OR OFFICE/OUTPATIENT ESTABLISHED MOD MDM 30 MIN (GC) Reason for Visit and Comments: Follow-up [494108] Normal [facility] Orders Onlyon 07-27-2023 Orders Only [id number] Jackie Mendoza 1975 F Date Provider Department Center 07/27/2023 JOEY [facility] Nila Heal Family History Problem Relation Age of Onset No Known Problems Father Family Status - Relation Status Age at Mother Notes: cancer brast ca, ovarian, skin, heart disease Father Normal [facility] DRUG SCREEN, UR-RFLEX CONFIR 07-14-2023 ALCOHOL, UR. Negative Normal (< 10 - Cutof) [facility] Comment on above: Order Comment: FACIL ITY: [facility] [id number] Performed By: #### D S-M+ #### [facility] [address] [facility], [address] AMPHETAMINES, UR. Negative Normal (< 500 - Cutof) [facility] Comment on above: Order Comment: FACIL ITY: [facility] [id number] Performed By: #### D S-M+ #### [facility] [address] [facility], [address] BARBITURATES, UR. Negative Normal (< 300 - Cutof) [facility] Comment on above: Order Comment: FACIL ITY: [facility] [id number] Performed By: #### D S-M+ #### [facility] [address] [facility], [address] BENZODIAZEPINES, UR. Negative Normal (< 100 - Cutof) [facility] Comment on above: Order Comment: FACIL ITY: [facility] [id number] Performed By: #### D S-M+ #### [facility] [address] [facility], [address] COCAINE METAB. UR. Negative Normal (< 150 - Cutof) [facility]: Order Comment: [facility] [id number] Performed By: #### D S-M+ #### [facility] [address] [facility], [address] CREAT, URINE 35.91 MG/DL Normal (20.00 - 320.0) [facility] Comment on above: Order Comment: [facility] [id number] Performed By: #### D S-M+ #### [facility] [address] [facility], [address] FENTANYL, UR SCREEN Positive High (< 1.0 - Cutof) [facility] Comment on above: Order Comment: FACIL ITY: [facility] [id number] Result Comment: FENT ANYL URINE SCREEN = POSITIVE Specimen sent for confirmation testing forfentanyl - [facility] test # [id number] Performed By: #### D S-M+ #### [facility] [address] [facility], [address] HEROIN METAB. UR. Negative Normal (< 10 - Cutof) [facility] Comment on above: Order Comment: FACIL ITY: [facility] [id number] Performed By: #### Ari S-M+ #### [facility] [address] [facility], [address] METHADONE METAB. UR. Negative Normal (< 100 - Cutof) [facility] Comment on above: Order Comment: [facility] [id number] Performed By: #### D S-M+ #### [facility] [address] [facility], [address] OPIATES, UR. Negative Normal (< 100 - Cutof) [facility] Comment on above: Order Comment: [facility] [id number] Performed By: #### D S-M+ #### [facility] [address] [place], [address] OXYCODONE, UR. Negative Normal (< 100 - Cutof) [facility] Comment on above: Order Comment: FACIL ITY[facility] [id number] Performed By: #### D S-M+ #### [facility] [address] [place], [address] pH (U) 5.0 [pH] Normal (5.0 - 9.0) [facility] Comment on above: Order Comment: FACIL ITY: [facility] [id number] Performed By: #### D S-M+ #### [facility] [address] [place], [address] PHENCYCLIDINE, UR. Negative Normal (< 25 - Cutof) [facility] Comment on above: Order Comment: FACIL ITY: [facility] [id number] Performed By: #### D S-M+ #### [facility] [address] [place], [address] THC METABOLITE, UR. Positive High (< 20 - Cutof) [facility] Comment on above: Order Comment: FACIL ITY: [facility] [id number] Result Comment: THC METABOLITE URINE SCREEN = POSITIVE Specimen sent for confirmation testing for THC - [facility] test # [id number] Performed By: #### D S-M+ #### [facility] [address] [place], [address] TRAMADOL, UR SCREEN Negative Normal (< 200 - Cutof) [facility] Comment on above: Order Comment: FACIL ITY: [facility] [id number] Result Comment: This drug testing is for medical treatment only. Analysis was performed as non-forensic testing and the results should be used only by healthcare providers to render diagnosis or treatment, or to monitor the progress of medical conditions. Performed By: #### D S-M+ #### [facility] [address] [facility], [address] Follow-Upon 04-27-2023 Follow-Up [id number] Jackie Mendoza 1975 F Date Provider Department Center 04/27/2023 [facility] Nila Heal Family History Problem Relation Age of Onset No Known Problems Father Family Status - Relation Status Age at Mother Notes: cancer brast ca, ovarian, skin, heart disease Father Level of Service:59102 OR OFFICE/OUTPATIENT ESTABLISHED MOD MDM 30-39 MIN (GC) Reason for Visit and Comments: Follow-up [[id number]] Normal [facility] DRUG SCREEN, UR-RFLEX CONFIR 04-09-2023 ALCOHOL, UR. Negative Normal (< 10 - Cutof) [facility] Comment on above: Order Comment: FACIL ITY: [facility] [id number] Performed By: #### D S-M+ #### [facility] [address] [facility], [address] AMPHETAMINES, UR. Negative Normal (< 500 - Cutof) [facility] Comment on above: Order Comment: FACIL ITY: [facility] [id number] Performed By: #### D S-M+ #### [facility] [address] [facility], [address] BARBITURATES, UR. Negative Normal (< 300 - Cutof) [facility] Comment on above: Order Comment: FACIL ITY: [facility] [id number] Performed By: #### D S-M+ #### [facility] [address] [facility], [address] BENZODIAZEPINES, UR. Negative Normal (< 100 - Cutof) [facility] Comment on above: Order Comment: FACIL ITY: [facility] [id number] Performed By: #### D S-M+ #### [facility] [address] [facility], [address] COCAINE METAB. UR. Negative Normal (< 150 - Cutof) [facility] Comment on above: Order Comment: FACIL ITY: [facility] [id number] Performed By: #### D S-M+ #### [facility] [address] [place], [address] CREAT, URINE 27.04 MG/DL Normal (20.00 - 320.0) [facility] Comment on above: Order Comment: FACIL ITY: [facility] [id number] Performed By: #### D S-M+ #### [facility] [address] [place], [address] FENTANYL, UR SCREEN Negative Normal (< 1.0 - Cutof) [facility] Comment on above: Order Comment: FACIL ITY: [facility] [id number] Performed By: #### D S-M+ #### [facility] [address] [place], [address] HEROIN METAB. UR. Negative Normal (< 10 - Cutof) [facility] Comment on above: Order Comment: FACIL ITY: [facility] [id number] Performed By: #### D S-M+ #### [facility] [address] [place], [address] METHADONE METAB. UR. Negative Normal (< 100 - Cutof) [place] Comment on above: Order Comment: FACIL ITY: [facility] [id number] Performed By: #### D S-M+ #### [facility] [address] [place], [address] OPIATES, UR. Negative Normal (< 100 - Cutof) [facility] Comment on above: Order Comment: FACIL ITY: [facility] [id number] Performed By: #### D S-M+ #### [facility] [address] [place], [address] OXYCODONE, UR. Negative Normal (< 100 - Cutof) [facility]: Order Comment: FACIL ITY: [facility] [id number] Performed By: #### D S-M+ #### [facility] [address] [place], [address] pH (U) 7.0 [pH] Normal (5.0 - 9.0) [facility] Comment on above: Order Comment: FACIL ITY: [facility] [id number] Performed By: #### D S-M+ #### [facility] [address] [place], [address] PHENCYCLIDINE, UR. Negative Normal (< 25 - Cutof) [facility] Comment on above: Order Comment: FACIL ITY: [facility] [id number] Performed By: #### D S-M+ #### [facility] [address] [place], [address] THC METABOLITE, UR. Positive High (< 20 - Cutof) [facility] Comment on above: Order Comment: FACIL ITY: [facility] [id number] Result Comment: THC METABOLITE URINE SCREEN = POSITIVE Specimen sent for confirmation testing for THC - [facility] test # [id number] Performed By: #### D S-M+ #### [facility] [address] [place], [address] TRAMADOL, UR SCREEN Negative Normal (< 200 - Cutof) [facility] Comment on above: Order Comment: FACIL ITY: [facility] [id number] Result Comment: This drug testing is for medical treatment only. Analysis was performed as non-forensic testing and the results should be used only by healthcare providers to render diagnosis or treatment, or to monitor the progress of medical conditions. Performed By: #### D S-M+ #### [place] [facility] [address] [place], [address] CBCon 03-05-2023 Erythrocyte distribution width (RBC) [Ratio] 15.0 % High 11.8-14.4 [facility] Comment on above: Performed By: #### C BC #### [facility] [address] [place] [address] It Sales Executive: Harjit Flores MD Hematocrit (Bld) [Volume fraction] 39.9 % Normal 36.3-47.1 [facility] Comment on above: Performed By: #### C BC #### [facility] [address] [facility] [place] [address] It Sales Executive: Harjit Flores MD Hemoglobin (Bld) [Mass/Vol] 13.2 g/dL Normal 11.9-15.1 [facility] Comment on above: Performed By: #### C BC #### [facility] [address] [place] [address] It Sales Executive: Harjit Flores MD MCH (RBC) [Entitic mass] 29.9 pg Normal 25.2-33.5 [facility] Comment on above: Performed By: #### C BC #### [facility] [address] [facility] [place] [address] It Sales Executive: Harjit Flores MD MCHC (RBC) [Mass/Vol] 33.1 g/dL Normal 28.4-34.8 [facility] Comment on above: Performed By: #### C BC #### [facility] [address] [facility] [place] [address] It Sales Executive: Harjit Flores MD MCV (RBC) [Entitic vol] 90.3 fL Normal 82.6-102.9 [facility] Comment on above: Performed By: #### C BC #### [facility] [address] [facility] [place] [address] It Sales Executive: Harjit Flores MD NRBC Automated 0.0 per 100 WBC Normal 0.0 [facility] Comment on above: Performed By: #### C BC #### [facility] [address] [place] [address] It Sales Executive: Harjit Flores MD Platelet mean volume (Bld) [Entitic vol] 10.4 fL Normal 8.1-13.5 [facility] Comment on above: Performed By: #### C BC #### [facility] [place] [address] It Sales Executive: Harjit Flores MD Platelets (Bld) [#/Vol] 209 10*3/uL Normal 138-453 [facility] Comment on above: Performed By: #### C BC #### [facility] [place] [address] It Sales Executive: Harjit Flores MD RBC (Bld) [#/Vol] 4.42 10*6/uL Normal 3.95-5.11 [facility] Comment on above: Performed By: #### C BC #### [facility] [address] [place] [address] It Sales Executive: Harjit Flores MD WBC (Bld) [#/Vol] 7.1 10*3/uL Normal 3.5-11.3 [facility] Comment on above: Performed By: #### C BC #### [facility] [address] [place] [address] It Sales Executive: Harjit Flores MD Erythrocyte distribution width (RBC) [Ratio] 15.0 % High 11.8 - 14.4 % [facility] Hematocrit (Bld) [Volume fraction] 39.9 % 36.3 - 47.1 % [facility] Hemoglobin (Bld) [Mass/Vol] 13.2 g/dL 11.9 - 15.1 g/dL [facility] Interpretation and review of laboratory results Abnormal [facility] MCH (RBC) [Entitic mass] 29.9 pg 25.2 - 33.5 pg [facility] MCHC (RBC) [Mass/Vol] 33.1 g/dL 28.4 - 34.8 g/dL [facility] MCV (RBC) [Entitic vol] 90.3 fL 82.6 - 102.9 fL [facility] Nucleated RBC/100 WBC (Bld) [Ratio] 0.0 % 0.0 per 100 WBC [facility] Platelet mean volume (Bld) [Entitic vol] 10.4 fL 8.1 - 13.5 fL [facility] Platelets (Bld) [#/Vol] 209 10*3/uL [facility] RBC (Bld) [#/Vol] 4.42 10*6/uL 3.95 - 5.1 1 m/uL [facility] WBC other (Bld) [#/Vol] 7.1 [facility] POCT urine pregnancyon 03-05 Beta HCG ( test) Ql (U) Negative NEGATIVE [facility] Comment on above: Specimens with hCG l evels near the threshold of the test (25 mIU/mL) may give a negative or indeterminate result. In such cases, another test should be performed with a new specimen in 48-72 hours. If early is suspected clinically in this setting, correlation with quantitative serum b-hCG level is suggested. [facility] Basic Metabolic Profon 02-19 Anion gap [Moles/Vol] 10 mmol/L Normal -17 [facility] Comment on above: Performed By: #### G LYHGB #### [facility] [employer] [address] [place] [address] It Sales Executive: Saw Elizondo MD #### BMP #### [facility] [address] [place] [address] It Sales Executive: Harjit Flores MD BUN/CRE Ratio 14 Normal 9-20 [facility] Comment on above: Performed By: #### G LYHGB #### [address] [address] It Sales Executive: Saw Elizondo MD #### BMP #### [facility] [address] [place] [address] It Sales Executive: Harjit Flores MD Calcium [Mass/Vol] 9.3 mg/dL Normal 8.6-10.4 [facility] Comment on above: Performed By: #### G LYHGB #### [address] [address] It Sales Executive: Saw Elizondo MD #### BMP #### [facility] [address] [place] [address] It Sales Executive: Harjit Flores MD Chloride [Moles/Vol] 103 mmol/L Normal 98-107 [facility] Comment on above: Performed By: #### G LYHGB #### [address] [address] It Sales Executive: Saw Elizondo MD #### BMP #### [facility] [address] [place] [address] It Sales Executive: Harjit Flores MD CO2 [Moles/Vol] 24 mmol/L Normal 20-31 [facility] Comment on above: Performed By: #### G LYHGB #### [address] [address] It Sales Executive: Saw Elizondo MD #### BMP #### [facility] [address] [place] [address] It Sales Executive: Harjit Flores MD Creatinine [Mass/Vol] 0.8 mg/dL Normal 0.5-0.9 [facility] Comment on above: Performed By: #### G LYHGB #### [address] [place] [address] It Sales Executive: Saw Elizondo MD #### BMP #### [facility] [address] [place] [address] It Sales Executive: Harjit Flores MD GFR/1.73 sq M.predicted among non-blacks MDRD (S/P/Bld) [Vol rate/Area] mL/min/{1.73_m2} Normal >60 [facility] Comment on above: Result Comment: These [...] secretion. Performed By: #### G LYHGB #### [address] [address] It Sales Executive: Saw Elizondo MD #### BMP #### [facility] [address] [place] [address] It Sales Executive: Harjit Flores MD Glucose [Mass/Vol] 126 mg/dL High 70-99 [facility] Comment on above: Performed By: #### G LYHGB #### [address] [place] [address] It Sales Executive: Saw Elizondo MD #### BMP #### [facility] [address] [place] [address] It Sales Executive: Harjit Flores MD Potassium [Moles/Vol] 4.0 mmol/L Normal 3.7-5.3 [facility] Comment on above: Performed By: #### G LYHGB #### [facility] [address] [place] [address] It Sales Executive: Saw Elizondo MD #### BMP #### [facility] [address] [place] [address] It Sales Executive: Harjit Flores MD Sodium [Moles/Vol] 137 mmol/L Normal 135-144 [facility] Comment on above: Performed By: #### G LYHGB #### [facility] [address] [place] [address] It Sales Executive: Saw Elizondo MD #### BMP #### [facility] [address] [place] [address] It Sales Executive: Harjit Flores MD Urea nitrogen [Mass/Vol] 11 mg/dL Normal 6-20 [facility] Comment on above: Performed By: #### G LYHGB #### [facility] [address] [place] [address] It Sales Executive: Saw Elizondo MD #### BMP #### [facility] [address] [place] [address] It Sales Executive: Harjit Flores MD CBCon 02-19-2023 Erythrocyte distribution width (RBC) [Ratio] 15.0 % High 11.8-14.4 [facility] Comment on above: Performed By: #### C BC #### [facility] [address] [place] [address] It Sales Executive: Harjit Flores MD Hematocrit (Bld) [Volume fraction] 40.2 % Normal 36.3-47.1 [facility] Comment on above: Performed By: #### C BC #### [facility] [address] [place] [address] It Sales Executive: Harjit Flores MD Hemoglobin (Bld) [Mass/Vol] 13.3 g/dL Normal 11.9-15.1 [facility] Comment on above: Performed By: #### C BC #### [facility] [address] [place] [address] It Sales Executive: Harjit Flores MD MCH (RBC) [Entitic mass] 29.6 pg Normal 25.2-33.5 [facility] Comment on above: Performed By: #### C BC #### [facility] [address] [place], [place] [address] [place] [address] It Sales Executive: Harjit Flores MD MCHC (RBC) [Mass/Vol] 33.1 g/dL Normal 28.4-34.8 [facility] Comment on above: Performed By: #### C BC #### [facility] [place] [address] It Sales Executive: Harjit Flores MD MCV (RBC) [Entitic vol] 89.3 fL Normal 82.6-102.9 [facility] Comment on above: Performed By: #### C BC #### [facility] [address] [place], [place] [address]ia [facility] [place] [address] It Sales Executive: Harjit Flores MD NRBC Automated 0.0 per 100 WBC Normal 0.0 [facility] Comment on above: Performed By: #### C BC #### [facility] [place] [address] It Sales Executive: Harjit Flores MD Platelet mean volume (Bld) [Entitic vol] 9.9 fL Normal 8.1-13.5 [facility] Comment on above: Performed By: #### C BC #### [facility] [address] [place], [place] [address] [place] [address] It Sales Executive: Harjit Flores MD Platelets (Bld) [#/Vol] 237 10*3/uL Normal 138-453 [facility] Comment on above: Performed By: #### C BC #### [facility] [address] [place] [address] It Sales Executive: Harjit Flores MD RBC (Bld) [#/Vol] 4.50 10*6/uL Normal 3.95-5.11 [facility] Comment on above: Performed By: #### C BC #### [facility] [address] [place] [address] It Sales Executive: Harjit Flores MD WBC (Bld) [#/Vol] 9.6 10*3/uL Normal 3.5-11.3 [facility] Comment on above: Performed By: #### C BC #### [facility] [address] [place] [address] It Sales Executive: Harjit Flores MD Hemoglobin A1Con 02-19-2023 Glucose [Mass/Vol] 123 mg/dL Normal [facility] Comment on above: Result Comment: The ADA and AACC recommend providing the estimated average glucose result to permit better patient understanding of their HBA1c result. Performed By: #### G LYHGB #### [facility] [employer] [facility] [address] [place] [address] It Sales Executive: Saw Elizondo MD #### BMP #### [facility] [address] [place] [address] It Sales Executive: Harjit Flores MD HbA1c (Bld) [Mass fraction] 5.9 % Normal 4.0-6.0 [facility] Comment on above: Performed By: #### G LYHGB #### [facility] [employer] [address] [place] [address] It Sales Executive: Saw Elizondo MD #### BMP #### [facility] [address] [place] [address] It Sales Executive: Harjit Flores MD DRUG SCREEN, UR-RFLEX CONFIR 01-06-2023 ALCOHOL, UR. Negative Normal (< 10 - Cutof) [facility] Comment on above: Order Comment: FACIL ITY: [facility] [id number] Performed By: #### D S-M+ #### [facility] [address] [facility], [address] AMPHETAMINES, UR. Negative Normal (< 500 - Cutof) [facility] Comment on above: Order Comment: FACIL ITY: [facility] [id number] Performed By: #### D S-M+ #### [facility] [address] [facility], [address] BARBITURATES, UR. Negative Normal (< 300 - Cutof) [facility] Comment on above: Order Comment: FACIL ITY: [facility] [id number] Performed By: #### D S-M+ #### [facility] [address] [facility], [address] BENZODIAZEPINES, UR. Positive High (< 100 - Cutof) [facility] Comment on above: Order Comment: FACIL ITY: [facility] [id number] Result Comment: AAKASH ODIAZEPINES URINE SCREEN = POSITIVE Specimen sent for confirmation testing for benzodiazepines - [facility] test # [id number] Performed By: #### D S-M+ #### [facility] [address] [facility], [address] COCAINE METAB. UR. Negative Normal (< 150 - Cutof) [facility] Comment on above: Order Comment: FACIL ITY: [facility] [id number] Performed By: #### D S-M+ #### [facility] [facility] [address] [place], [address] CREAT, URINE 64.85 MG/DL Normal (20.00 - 320.0) [facility] Comment on above: Order Comment: FACIL ITY: [facility] [id number] Performed By: #### D S-M+ #### [facility] [facility] [address] [place], [address] FENTANYL, UR SCREEN Negative Normal (< 1.0 - Cutof) [facility] [facility] Comment on above: Order Comment: FACIL ITY: [facility] [id number] Performed By: #### D S-M+ #### [place] [facility] [address] [place], [address] HEROIN METAB. UR. Negative Normal (< 10 - Cutof) [facility] [facility] Comment on above: Order Comment: FACIL ITY: [facility] [id number] Performed By: #### Ari S-M+ #### [place] [facility] [address] [place], [address] METHADONE METAB. UR. Negative Normal (< 100 - Cutof) [facility] [facility] Comment on above: Order Comment: FACIL ITY: [facility] [id number] Performed By: #### Ari S-M+ #### [place] [facility] [address] [place], [address] OPIATES, UR. Negative Normal (< 100 - Cutof) [facility] [facility] Comment on above: Order Comment: FACIL ITY: [facility] [id number] Performed By: #### D S-M+ #### [place] [facility] [address] [place], [address] OXYCODONE, UR. Negative Normal (< 100 - Cutof) [facility] [facility] Comment on above: Order Comment: FACIL ITY: [facility] [id number] Performed By: #### Ari S-M+ #### [place] [facility] [address] [place], [address] pH (U) 5.5 [pH] Normal (5.0 - 9.0) [facility] Comment on above: Order Comment: FACIL ITY: [facility] [id number] Performed By: #### D S-M+ #### [place] [facility] [address] [place], [address] PHENCYCLIDINE, UR. Negative Normal (< 25 - Cutof) [facility] Comment on above: Order Comment: FACIL ITY: [facility] [id number] Performed By: #### D S-M+ #### [facility] [address] [place], [address] THC METABOLITE, UR. Positive High (< 20 - Cutof) [facility] Comment on above: Order Comment: FACIL ITY: [facility] [id number] Result Comment: THC METABOLITE URINE SCREEN = POSITIVE Specimen sent for confirmation testing for THC - [facility] test # [id number] Performed By: #### D S-M+ #### [place] [facility] [address] [place], [address] TRAMADOL, UR SCREEN Negative Normal (< 200 - Cutof) [facility] Comment on above: Order Comment: FACIL ITY: [facility] [id number] Result Comment: This drug testing is for medical treatment only. Analysis was performed as non-forensic testing and the results should be used only by healthcare providers to render diagnosis or treatment, or to monitor the progress of medical conditions. Performed By: #### D S-M+ #### [facility] [facility] [address] [place], [address] GLYCOHEMOGLOBIN A1Con 2022 ADA RECOMMENDATION SEE BELOW Normal [facility] Comment on above: Result Comment: ADA RECOMMENDED LIMIT 4.0 - 6.0 ADA THERAPEUTIC TARGET < 7.0 ACTION SUGGESTED > 7.0 Performed By: #### D ATA1C #### [facility] [address] [place] [address] Dr. Brock Elias Glucose [Mass/Vol] 128 mg/dL Normal [facility] Comment on above: Performed By: #### D ATA1C #### [facility] [address] [place] [address] Dr. Brock Elias HbA1c (Bld) [Mass fraction] 6.1 % Normal 4.5-6.2 [facility] Comment on above: Performed By: #### D ATA1C #### [facility] [address] [place] [address] Dr. Brock Elias US ALISA DOP LEG RTon 09-16-19 US [...] WILFRIDO FORD Date: 2022-09-15 09:06 Normal [facility] CBC AUTO DIFFon 09-14-2022 BASO # 0.0 103/ul Normal 0.0-0.1 [facility] Comment on above: Performed By: #### C BC #### [facility] [address] [place] [address] Dr. Brock Elias Basophils/100 WBC (Bld) 0.4 % Normal 0.2-2.0 [facility] Comment on above: Performed By: #### C BC #### [facility] [address] [place] [address] Dr. Brock Elias EO # 0.2 103/ul Normal 0.0-0.7 [facility] Comment on above: Performed By: #### C BC #### [facility] [address] [place] [address] Dr. Brock Elias Eosinophils/100 WBC (Bld) 2.1 % Normal 0.9-7.0 [facility] Comment on above: Performed By: #### C BC #### [facility] [address] [place] [address] Dr. Brock Elias Erythrocyte distribution width (RBC) [Ratio] 15.2 % Critically high 11.0-15.0 [facility] Comment on above: Performed By: #### C BC #### [facility] [address] [place] [address] Dr. Brock Elias Hematocrit (Bld) [Volume fraction] 40.0 % Normal 36.0-48.0 [facility] Comment on above: Performed By: #### C BC #### [facility] [address] [place] [address] Dr. Brock Elias Hemoglobin (Bld) [Mass/Vol] 13.4 g/dL Normal 12.0-16.0 [facility] Comment on above: Performed By: #### C BC #### [facility] [address] [place] [address] Dr. Brock Elias IG # 0.02 10e3/ul Normal 0.00-0.03 [facility] Comment on above: Performed By: #### C BC #### [facility] [address] [place] [address] Dr. Brock Elias IG % 0.3 % Normal 0.0-0.5 [facility] Comment on above: Performed By: #### C BC #### [facility] [address] [place] [address] Dr. Brock Elias LYMPH # 1.9 103/ul Normal 1.2-3.8 [facility] Comment on above: Performed By: #### C BC #### [facility] [address] [place] [address] Dr. Brock Elias Lymphocytes/100 WBC (Bld) 26.7 % Normal 20.5-60.0 [facility] Comment on above: Performed By: #### C BC #### [facility] [address] [place] [address] Dr. Brock Elias MANUAL DIFF REQ NO Normal [facility] Comment on above: Performed By: #### C BC #### [facility] [address] [place] [address] Dr. Brock Elias MCH (RBC) [Entitic mass] 28.6 pg Normal 26.7-34.0 [facility] Comment on above: Performed By: #### C BC #### [facility] [address] [place] [address] Dr. Brock Elias MCHC (RBC) [Mass/Vol] 33.5 g/dL Normal 29.9-35.2 [facility] Comment on above: Performed By: #### C BC #### [facility] [address] [place] [address] Dr. Brock Elias MCV (RBC) [Entitic vol] 85.5 fL Normal 81.0-99.0 [facility] Comment on above: Performed By: #### C BC #### [facility] [address] [place] [address] Dr. Brock Elias MONO # 0.4 103/ul Normal 0.3-0.8 [facility] Comment on above: Performed By: #### C BC #### [facility] [address] [place] [address] Dr. Brock Elias Monocytes/100 WBC (Bld) 5.3 % Normal 1.7-12.0 [facility] Comment on above: Performed By: #### C BC #### [facility] [address] [place] [address] Dr. Brock Elias NEUT # 4.6 103/ul Normal 1.4-6.5 [facility] Comment on above: Performed By: #### C BC #### [facility] [address] [place] [address] Dr. Brock Elias Neutrophils/100 WBC (Bld) 65.2 % Normal 43.0-75.0 [facility] Comment on above: Performed By: #### C BC #### [facility] [address] [place] [address] Dr. Brock Elias Platelet mean volume (Bld) [Entitic vol] 9.9 fL Normal 9.5-13.5 [facility] Comment on above: Performed By: #### C BC #### [facility] [address] [address] [address] Brock Elias PLT 225 103/ul Normal 150-450 [facility] Comment on above: Performed By: #### C BC #### [facility] [address] [place], [place] [id number] Dr. Brock Elias RBC 4.68 106/ul Normal 4.20-5.40 [facility] Comment on above: Performed By: #### C BC #### [facility] [address] [place] [address] Dr. Brock Elias WBC 7.0 103/ul Normal 4.0-11.0 [facility] Comment on above: Performed By: #### C BC #### [facility] [address] [place] [address] Dr. Brock Elias D-DIMERon 09-14-2022 D-DIMER 2.02 mg/L FEU Critically high <=0.59 [facility] Comment on above: Performed By: #### H IV12 #### [facility] [address] [place] [address] Dr. Brock Elias D-DIMER COMMENTS SEE BELOW Normal [facility] Comment on above: Result Comment: Incr [...] hospitalization. Performed By: #### H IV12 #### [facility] [address] [place] [address] Dr. Brock Elias LACTATE/LACTIC ACIDon 2022 Lactate [Moles/Vol] 0.9 mmol/L Normal 0.4-2.0 [facility] Comment on above: Performed By: #### L ACT #### [facility] [address] [place] [address] Dr. Brock Elias PROF CHEM 8 (BAS METB)on Anion gap [Moles/Vol] 8.7 mmol/L Normal [facility] Comment on above: Performed By: #### B MP #### [facility] [address] [address] [address] Brock Elias Calcium [Mass/Vol] 8.9 mg/dL Normal 8.5-10.1 [facility] Comment on above: Performed By: #### B MP #### [facility] [address] [address] [address] Brock Elias Chloride [Moles/Vol] 105 mmol/L Normal 98-107 [facility] Comment on above: Performed By: #### B MP #### [facility] [address] [address] [address] Brock Elias CO2 [Moles/Vol] 29.3 mmol/L Normal 21.0-32.0 [facility] Comment on above: Performed By: #### B MP #### [facility] [address] [address] [address] Brock Elias Creatinine [Mass/Vol] 0.81 mg/dL Normal 0.55-1.02 [facility] Comment on above: Performed By: #### B MP #### [facility] [address] [place] [address] Dr. Brock Elias EGFR-AF CUBAN >60 Normal >=60 [facility] Comment on above: Performed By: #### B MP #### [facility] [address] [address] [address] Brock Elias EGFR-NON AF CUBAN >60 Normal >=60 [facility] Comment on above: Performed By: #### B MP #### [facility] [address] [address] [address] Brock Elias Glucose [Mass/Vol] 106 mg/dL Normal 74-106 [facility] Comment on above: Performed By: #### B MP #### [facility] [address] [place] [address] Dr. Brock Elias Potassium [Moles/Vol] 4.0 mmol/L Normal 3.5-5.1 [facility] Comment on above: Performed By: #### B MP #### [facility] [address] [address] [address] Brock Elias Sodium [Moles/Vol] 139 mmol/L Normal 136-145 [facility] Comment on above: Performed By: #### B MP #### [facility] [address] [place], [place] [address] Dr. Brock Elias Urea nitrogen [Mass/Vol] 11.0 mg/dL Normal 7.0-18.0 [facility] Comment on above: Performed By: #### B MP #### [facility] [address] [address] [address] Brock Elias Urea nitrogen/Creatinine [Mass ratio] 13.6 mg/mg Normal [facility] Comment on above: Performed By: #### B MP #### [facility] [address] [address] [address] Brock Elias HIV 1 AND 2 WITH REFLEXon HIV Screen 4th Generation wRfx Non-Reactive Normal Non Reactive [facility] Comment on above: Result Comment: HIV Negative HIV-1/HIV-2 antibodies and HIV-1 p24 antigen were NOT detected. There is no laboratory evidence of HIV infection. Performed By: #### H IV12 #### [facility] [address] [address] [address] Brock Elias XR ELBOW MARTHA MIN [...] GILL MORENO Date: 2022-08-13 10:47 Normal [facility] XR HAND MARTHA MIN 3Von 023 [...] GILL MORENO Date: 2022-08-13 10:45 Normal [facility] XR KNEE MARTHA 3 Von 08-12-2022 [...] by: MELISSA GATES Date: 2022-08-12 17:40 Normal [facility] XR WRIST MARTHA MIN 3 Von [...] MELISSA GATES Date: 2022-08-12 17:26 Normal [facility] LUCINDA EIA W/REFLEX 9 BIOMARKER Son 07-23-2022 LUCINDA Direct Negative Normal Negative [facility] Comment on above: Performed By: #### H IV12 #### [facility] [address] [place] [address] Dr. Brock Elias C-REACTIVE PROTEINS (HS)on 0 07-23-2022 C-Reactive Protein, Cardiac 4.28 mg/L Critically high 0.00-3.00 [facility] Comment on above: Result Comment: Rela tive Risk for Future Cardiovascular Event Low <1.00 Average 1.00 - 3.00 High >3.00 Performed By: #### C RPHS #### [facility] [address] [place] [address] Dr. Brock Elias CYCLIC CITRULLINATED PEPTIDE AB (CCP)on 07-23-2022 CCP Antibodies IgG/IgA 6 units Normal 0-19 [facility] Comment on above: Result Comment: Nega tive <20 Weak positive 20 - 39 Moderate positive 40 - 59 Strong positive >59 Performed By: #### R F #### [facility] [address] [place] [address] Dr. Brock Elias RHEUMATOID FACTORon 07-23-19 23 RA Latex Turbid. <10.0 Normal <14.0 [facility] Comment on above: Performed By: #### R F #### [facility] [address] [place] [address] Dr. Brock Elias GLYCOHEMOGLOBIN A1Con 2022 ADA RECOMMENDATION SEE BELOW Normal [facility] Comment on above: Result Comment: ADA RECOMMENDED LIMIT 4.0 - 6.0 ADA THERAPEUTIC TARGET < 7.0 ACTION SUGGESTED > 7.0 Performed By: #### C MP #### [facility] [address] [place] [address] Dr. Brock Elias Glucose [Mass/Vol] 126 mg/dL Normal [facility] Comment on above: Performed By: #### C MP #### [facility] [address] [place] [address] Dr. Brock Elias HbA1c (Bld) [Mass fraction] 6.0 % Normal 4.5-6.2 [facility] Comment on above: Performed By: #### C MP #### [facility] [address] [place] [address] Dr. Brock Elias PROF 14(COMP METB)on 023 Albumin [Mass/Vol] 3.9 g/dL Normal 3.4-5.0 [facility] Comment on above: Performed By: #### C MP #### [facility] [address] [place] [address] Dr. Brock Elias Albumin/Globulin [Mass ratio] 1.1 {ratio} Normal [facility] Comment on above: Performed By: #### C MP #### [facility] [address] [place] [address] Dr. Brock Elias ALP [Catalytic activity/Vol] 88 U/L Normal 46-116 [facility] Comment on above: Performed By: #### C MP #### [facility] [address] [place] [address] Dr. Brock Elias ALT [Catalytic activity/Vol] 28 U/L Normal 14-59 [facility] Comment on above: Performed By: #### C MP #### [facility] [address] [place] [address] Dr. Brock Elias Anion gap [Moles/Vol] 13.8 mmol/L Normal [facility] Comment on above: Performed By: #### C MP #### [facility] [address] [place] [address] Dr. Brock Elias AST [Catalytic activity/Vol] 31 U/L Normal 15-37 [facility] Comment on above: Performed By: #### C MP #### [facility] [address] [place] [address] Dr. Brock Elias Bilirubin [Mass/Vol] 0.6 mg/dL Normal 0.2-1.0 [facility] Comment on above: Performed By: #### C MP #### [facility] [address] [address] [address] Brock Elias Calcium [Mass/Vol] 8.9 mg/dL Normal 8.5-10.1 [facility] Comment on above: Performed By: #### C MP #### [facility] [address] [address] [address] Brock Elias Chloride [Moles/Vol] 104 mmol/L Normal 98-107 [facility] Comment on above: Performed By: #### C MP #### [facility] [address] [address] [address] Brock Elias CO2 [Moles/Vol] 28.5 mmol/L Normal 21.0-32.0 [facility] Comment on above: Performed By: #### C MP #### [facility] [address] [place] [address] Dr. rBock Elias Creatinine [Mass/Vol] 0.76 mg/dL Normal 0.55-1.02 [facility] Comment on above: Performed By: #### C MP #### [facility] [address] [place] [address] Dr. Brock Elias EGFR-AF CUBAN >60 Normal >=60 [facility] Comment on above: Performed By: #### C MP #### [facility] [address] [place] [address] Dr. Brock Elias EGFR-NON AF CUBAN >60 Normal >=60 [facility] Comment on above: Performed By: #### C MP #### [facility] [address] [address] [address] Brock Elias Globulin (S) [Mass/Vol] 3.7 g/dL Normal [facility] Comment on above: Performed By: #### C MP #### [facility] [address] [place] [address] Dr. Brock Elias Glucose [Mass/Vol] 107 mg/dL Critically high 74-106 [facility] Comment on above: Performed By: #### C MP #### [facility] [address] [place] [address] Dr. Brock Elias Potassium [Moles/Vol] 4.3 mmol/L Normal 3.5-5.1 [facility] Comment on above: Performed By: #### C MP #### [facility] [address] [address] [address] Brock Elias Protein [Mass/Vol] 7.6 g/dL Normal 6.4-8.2 [facility] Comment on above: Performed By: #### C MP #### [facility] [address] [address] [address] Brock Elias Sodium [Moles/Vol] 142 mmol/L Normal 136-145 [facility] Comment on above: Performed By: #### C MP #### [facility] [address] [address] [address] Brock Elias Urea nitrogen [Mass/Vol] 15.0 mg/dL Normal 7.0-18.0 [facility] Comment on above: Performed By: #### C MP #### [facility] [address] [address] [address] Brock Elias Urea nitrogen/Creatinine [Mass ratio] 19.7 mg/mg Normal [facility] Comment on above: Performed By: #### C MP #### [facility] [address] [place] [address] Dr. Brock Elias SED RATE [facility] 2022 SED RATE 29 mm/hr Critically high <=20 [facility] Comment on above: Performed By: #### R F #### [facility] [address] [place] [address] Dr. Brock Elias PROF 14(COMP METB)on 023 Albumin [Mass/Vol] 3.6 g/dL Normal 3.4-5.0 [facility] Comment on above: Performed By: #### C MP #### [facility] [address] [place] [address] Dr. Brock Elias Albumin/Globulin [Mass ratio] 1.1 {ratio} Normal [facility] Comment on above: Performed By: #### C MP #### [facility] [address] [place] [address] Dr. Brock Elias ALP [Catalytic activity/Vol] 83 U/L Normal 46-116 [facility] Comment on above: Performed By: #### C MP #### [facility] [address] [address] [address] Brock Elias ALT [Catalytic activity/Vol] 22 U/L Normal 14-59 [facility] Comment on above: Performed By: #### C MP #### [facility] [address] [address] [address] Brock Elias Anion gap [Moles/Vol] 12.8 mmol/L Normal [facility] Comment on above: Performed By: #### C MP #### [facility] [address] [place] [address] Dr. Brock Elias AST [Catalytic activity/Vol] 17 U/L Normal 15-37 [facility] Comment on above: Performed By: #### C MP #### [facility] [address] [place] [address] Dr. Brock Elias Bilirubin [Mass/Vol] 0.5 mg/dL Normal 0.2-1.0 [facility] Comment on above: Performed By: #### C MP #### [facility] [address] [place] [address] Dr. Brock Elias Calcium [Mass/Vol] 8.5 mg/dL Normal 8.5-10.1 [facility] Comment on above: Performed By: #### C MP #### [facility] [address] [place] [address] Dr. Brock Elias Chloride [Moles/Vol] 104 mmol/L Normal 98-107 [facility] Comment on above: Performed By: #### C MP #### [facility] [address] [address] [address] Brock Elias CO2 [Moles/Vol] 26.3 mmol/L Normal 21.0-32.0 [facility] Comment on above: Performed By: #### C MP #### [facility] [address] [place] [address] Dr. Brock Elias Creatinine [Mass/Vol] 0.79 mg/dL Normal 0.55-1.02 [facility] Comment on above: Performed By: #### C MP #### [facility] [address] [address] [address] Brock Elias EGFR-AF CUBAN >60 Normal >=60 [facility] Comment on above: Performed By: #### C MP #### [facility] [address] [address] [address] Brock Elias EGFR-NON AF CUBAN >60 Normal >=60 [facility] Comment on above: Performed By: #### C MP #### [facility] [address] [address] [address] Brock Elias Globulin (S) [Mass/Vol] 3.3 g/dL Normal [facility] Comment on above: Performed By: #### C MP #### [facility] [address] [place] [address] Dr. Brock Elias Glucose [Mass/Vol] 153 mg/dL Critically high 74-106 [facility] Comment on above: Performed By: #### C MP #### [facility] [address] [address] [address] Brock Elias Potassium [Moles/Vol] 4.1 mmol/L Normal 3.5-5.1 [facility] Comment on above: Performed By: #### C MP #### [facility] [address] [place] [address] Dr. Brock Elias Protein [Mass/Vol] 6.9 g/dL Normal 6.4-8.2 [facility] Comment on above: Performed By: #### C MP #### [facility] [address] [address] [address] Brock Elias Sodium [Moles/Vol] 139 mmol/L Normal 136-145 [facility] Comment on above: Performed By: #### C MP #### [facility] [address] [address] [address] Brock Elias Urea nitrogen [Mass/Vol] 12.0 mg/dL Normal 7.0-18.0 [facility] Comment on above: Performed By: #### C MP #### [facility] [address] [place], [place] [address] Dr. Brock Elias Urea nitrogen/Creatinine [Mass ratio] 15.2 mg/mg Normal [facility] Comment on above: Performed By: #### C MP #### [facility] [address] [place], [place] [address] Dr. Brock Elias US VAC ASST BX BREAST RT W C LIPon 06-12-2022 US VAC ASST BX BREAST RT W CLIP Begin Addendum #1 COLLECTED DATE/TIME: 06/04/2022 08:21 EST Final Diagnosis Report for [facility] [place] ULTRASOUND GUIDED CORE BIOPSY RIGHT BREAST [...] after pathology results are available. Normal [facility] MAMMO POST BIOPSY RIGHTon MAMMO POST BIOPSY RIGHT Patient: RADHA SANTACRUZ Exam Date: 06/04/2022 : 1975 Gender:F Ordering : DONNIE KAMINSKI [employer]-C Admission #: [id number] Family : Order #: [id number] CLICK HERE TO VIEW EXAM RADIOLOGY REPORT [...] Gill Moreno M.D. on 06/09/2022 at 13:27 [facility] 05-28-2022 CNP Telephone (NCCAP) RADHA SANTACRUZ ([id number]) 1975 F Date Time Provider Department 05[facility]28[facility]22 [facility] During your visit today, we recorded the following information about you: Bandar Laguna 05/28/2022 2:23 PM Signed Pt is being referred by [facility] Breast Ca. Per Karina Antunez schedule new [...] Encounter Status:Closed by BANDAR LAGUNA on 05/30/22 [facility] MG MAMM RT DIAG FUon 022 MG MAMM RT DIAG Patient: ONIEL SANTACRUZ Exam Date: 05/28/2022 : 1975 Gender:F Ordering : DONNIE AGEE Admission #: [id number] Family : Order #: [id number] CLICK HERE TO VIEW EXAM RADIOLOGY REPORT [...] breast cancer at age 38. LOCATION: [facility] BREAST COMPOSITION: Scattered areas fibroglandular density. [...] M.D. on 05/28/2022 at 12:33 Normal [facility] US BREAST RIGHT LIMITEDon US BREAST RIGHT LIMITED Patient: RADHA SANTACRUZ Exam Date: 05/28/2022 : 1975 Gender:F Ordering : DONNIE KAMINSKI [employer] Admission #: [id number] Family : Order #: [id number] CLICK HERE TO VIEW EXAM RADIOLOGY REPORT [...] breast cancer at age 38. LOCATION: [facility] BREAST COMPOSITION: Scattered areas fibroglandular density. [...] Moreno M.D. on 05/28/2022 at 12:33 Normal [facility] XR HAND MARTHA MIN 3Von 022 XR HAND MARTHA MIN 3V EXAM: XR HAND MARTHA SD N 3V HISTORY: Bilateral hand pain COMPARISON: None. TECHNIQUE: 3 views of each hand FINDINGS: No fracture, dislocation, subluxation or osseous lesion. Joint spaces are normal for patient's age. No visualized erosion or joint effusion. No soft tissue edema. IMPRESSION: Normal hand x-rays Electronically authenticated by: AGUSTIN ADAMSON Date: 2022-05-19 16:32 Normal [facility] XR LSPINE 2_3 VIEWSon 2021 XR [...] by: AGUSTIN ADAMSON Date: 2022-05-19 16:29 Normal [facility] MG MAMM SCREEN 3D MARTHA CADon 04-29-2022 MG MAMM SCREEN 3D MARTHA CAD Patient: RADHA SANTACRUZ Exam Date: 04/29/2022 : 1975 Gender:F Ordering : DONNIE KAMINSKI [employer]-C Admission #: [id number] Family : Order #: [id number] CLICK HERE TO VIEW EXAM RADIOLOGY REPORT [...] breast cancer at age 38. LOCATION: [facility] BREAST COMPOSITION: Scattered areas fibroglandular density. [...] MD on 04/30/2022 at 07:26 [facility] [facility] 022 Physician Referral [id number] 00 [id number]:[id number] Normal [facility] Physician Referral [id number] 00 [id number] 0CD:[id number] Normal [facility] CBC AUTO DIFFon 04-14-2022 BASO # 0.1 103/ul Normal 0.0-0.1 [facility] Comment on above: Performed By: #### C MP #### [facility] [address] [address] [address] Brock Elias Basophils/100 WBC (Bld) 0.8 % Normal 0.2-2.0 [facility] Comment on above: Performed By: #### C MP #### [facility] [address] [place] [address] Dr. Brock Elias EO # 0.2 103/ul Normal 0.0-0.7 [facility] Comment on above: Performed By: #### C MP #### [facility] [address] [place] [address] Dr. Brock Elias Eosinophils/100 WBC (Bld) 2.1 % Normal 0.9-7.0 [facility] Comment on above: Performed By: #### C MP #### [facility] [address] [place] [address] Dr. Brock Elias Erythrocyte distribution width (RBC) [Ratio] 14.0 % Normal 11.0-15.0 [facility] Comment on above: Performed By: #### C MP #### [facility] [address] [place] [address] Dr. Brock Elias Hematocrit (Bld) [Volume fraction] 39.6 % Normal 36.0-48.0 [facility] Comment on above: Performed By: #### C MP #### [facility] [address] [place] [address] Dr. Brock Elias Hemoglobin (Bld) [Mass/Vol] 12.6 g/dL Normal 12.0-16.0 [facility] Comment on above: Performed By: #### C MP #### [facility] [address] [place] [address] Dr. Brock Elias IG # 0.02 10e3/ul Normal 0.00-0.03 [facility] Comment on above: Performed By: #### C MP #### [facility] [address] [place] [address] Dr. Brock Elias IG % 0.2 % Normal 0.0-0.5 [facility] Comment on above: Performed By: #### C MP #### [facility] [address] [place] [address] Dr. Brock Elias LYMPH # 2.2 103/ul Normal 1.2-3.8 [facility] Comment on above: Performed By: #### C MP #### [facility] [address] [place] [address] Dr. Brock Elias Lymphocytes/100 WBC (Bld) 25.5 % Normal 20.5-60.0 [facility] Comment on above: Performed By: #### C MP #### [facility] [address] [place] [address] Dr. Brock Elias MANUAL DIFF REQ NO Normal [facility] Comment on above: Performed By: #### C MP #### [facility] [address] [place] [address] Dr. Brock Elias MCH (RBC) [Entitic mass] 28.0 pg Normal 26.7-34.0 [facility] Comment on above: Performed By: #### C MP #### [facility] [address] [place] [address] Dr. Brock Elias MCHC (RBC) [Mass/Vol] 31.8 g/dL Normal 29.9-35.2 [facility] Comment on above: Performed By: #### C MP #### [facility] [address] [place] [address] Dr. Brock Elias MCV (RBC) [Entitic vol] 88.0 fL Normal 81.0-99.0 [facility] Comment on above: Performed By: #### C MP #### [facility] [address] [place] [address] Dr. Brock Elias MONO # 0.4 103/ul Normal 0.3-0.8 [facility] Comment on above: Performed By: #### C MP #### [facility] [address] [place] [address] Dr. Brock Elias Monocytes/100 WBC (Bld) 4.8 % Normal 1.7-12.0 [facility] Comment on above: Performed By: #### C MP #### [facility] [address] [place] [address] Dr. Brock Elias NEUT # 5.6 103/ul Normal 1.4-6.5 [facility] Comment on above: Performed By: #### C MP #### [facility] [address] [place], [place] [id number] Dr. Brock Elias Neutrophils/100 WBC (Bld) 66.6 % Normal 43.0-75.0 [facility] Comment on above: Performed By: #### C MP #### [facility] [address] [place] [address] Dr. Brock Elias Platelet mean volume (Bld) [Entitic vol] 9.9 fL Normal 9.5-13.5 [facility] Comment on above: Performed By: #### C MP #### [facility] [address] [place] [address] Dr. Brock Elias PLT 266 103/ul Normal 150-450 [facility] Comment on above: Performed By: #### C MP #### [facility] [address] [place] [address] Dr. Brock Elias RBC 4.50 106/ul Normal 4.20-5.40 [facility] Comment on above: Performed By: #### C MP #### [facility] [address] [place] [address] Dr. Brock Elias WBC 8.5 103/ul Normal 4.0-11.0 [facility] Comment on above: Performed By: #### C MP #### [facility] [address] [place] [address] Dr. Brock Elias GLYCOHEMOGLOBIN A1Con 2021 ADA RECOMMENDATION SEE BELOW Normal [facility] Comment on above: Result Comment: ADA RECOMMENDED LIMIT 4.0 - 6.0 ADA THERAPEUTIC TARGET < 7.0 ACTION SUGGESTED > 7.0 Performed By: #### A 1C #### [facility] [address] [place] [address] Dr. Brock Elias Glucose [Mass/Vol] 123 mg/dL Normal [facility] Comment on above: Performed By: #### A 1C #### [facility] [address] [place] [address] Dr. Brock Elias HbA1c (Bld) [Mass fraction] 5.9 % Normal 4.5-6.2 [facility] Comment on above: Performed By: #### A 1C #### [facility] [address] [address] [address] Brock Elias LIPID PROFILEon 04-14-2022 CHOL-HDL RATIO NORM SEE BELOW Normal [facility] Comment on above: Result Comment: 3.3 - 4.4 LOW RISK 4.4 - 7.1 AVERAGE RISK 7.1 - 11.0 MODERATE RISK >11.0 HIGH RISK Performed By: #### R F #### [facility] [address] [address] [address] Brock Elias Cholesterol [Mass/Vol] 133 mg/dL Normal <=200 [facility] Comment on above: Performed By: #### R F #### [facility] [address] [address] [address] Brock Elias Cholesterol in HDL [Mass/Vol] 43 mg/dL Normal 40-60 [facility] Comment on above: Performed By: #### R F #### [facility] [address] [address] [address] Brock Elias Cholesterol in LDL [Mass/Vol] 74.2 mg/dL Normal [facility] Comment on above: Performed By: #### R F #### [facility] [address] [address] [address] Brock Elias Cholesterol.total/Ch olesterol in HDL [Mass ratio] 3.1 {ratio} Normal [facility] Comment on above: Performed By: #### R F #### [facility] [address] [address] [address] Brock Elias HDL NORMAL > or = 60 mg/dl - LO W CARDIOVASCULAR RISK <40 mg/dl - HIGH CARDIOVASCULAR RISK Normal [facility] Comment on above: Performed By: #### R F #### [facility] [address] [address] [address] Brock Elias LDL CALC NORMAL SEE BELOW Normal [facility] Comment on above: Result Comment: <100 mg/dl OPTIMAL 100 - 129 mg/dl NEAR OR ABOVE OPTIMAL 130 - 159 mg/dl BORDERLINE HIGH 160 - 189 mg/dl HIGH >190 mg/dl VERY HIGH Performed By: #### R F #### [facility] [address] [address] [address] Brock Elias Triglyceride [Mass/Vol] 79 mg/dL Normal <=150 [facility] Comment on above: Performed By: #### R F #### [facility] [address] [place] [address] Dr. Brock Elias VLDL CALC 15.8 mg/dL Normal [facility] Comment on above: Performed By: #### R F #### [facility] [address] [place] [address] Dr. Brock Elias PROF 14(COMP METB)on 022 Albumin [Mass/Vol] 3.6 g/dL Normal 3.4-5.0 [facility] Comment on above: Performed By: #### H IV12 #### [facility] [address] [place] [address] Dr. Brock Elias Albumin/Globulin [Mass ratio] 0.9 {ratio} Normal [facility] Comment on above: Performed By: #### H IV12 #### [facility] [address] [place] [address] Dr. Brock Elias ALP [Catalytic activity/Vol] 83 U/L Normal 46-116 [facility] Comment on above: Performed By: #### H IV12 #### [facility] [address] [place] [address] Dr. Brock Elias ALT [Catalytic activity/Vol] 15 U/L Normal 14-59 [facility] Comment on above: Performed By: #### H IV12 #### [facility] [address] [place] [address] Dr. Brock Elias Anion gap [Moles/Vol] 9.5 mmol/L Normal [facility] Comment on above: Performed By: #### H IV12 #### [facility] [address] [place] [address] Dr. Brock Elias AST [Catalytic activity/Vol] 12 U/L Critically low 15-37 [facility] Comment on above: Performed By: #### H IV12 #### [facility] [address] [place] [address] Dr. Brock Elias Bilirubin [Mass/Vol] 0.4 mg/dL Normal 0.2-1.0 [facility] Comment on above: Performed By: #### H IV12 #### [facility] [address] [place] [address] Dr. Brock Elias Calcium [Mass/Vol] 8.9 mg/dL Normal 8.5-10.1 [facility] Comment on above: Performed By: #### H IV12 #### [facility] [address] [address] [address] Brock Elias Chloride [Moles/Vol] 105 mmol/L Normal 98-107 [facility] Comment on above: Performed By: #### H IV12 #### [facility] [address] [place] [address] Dr. Brock Elias CO2 [Moles/Vol] 28.5 mmol/L Normal 21.0-32.0 [facility] Comment on above: Performed By: #### H IV12 #### [facility] [address] [place] [address] Dr. Brock Elias Creatinine [Mass/Vol] 0.73 mg/dL Normal 0.55-1.02 [facility] Comment on above: Performed By: #### H IV12 #### [facility] [address] [place] [address] Dr. Brock Elias EGFR-AF CUBAN >60 Normal >=60 [facility] Comment on above: Performed By: #### H IV12 #### [facility] [address] [place] [address] Dr. Brock Elias EGFR-NON AF CUBAN >60 Normal >=60 [facility] Comment on above: Performed By: #### H IV12 #### [facility] [address] [place] [address] Dr. Brock Elias Globulin (S) [Mass/Vol] 3.8 g/dL Normal [facility] Comment on above: Performed By: #### H IV12 #### [facility] [address] [place] [address] Dr. Brock Elias Glucose [Mass/Vol] 99 mg/dL Normal 74-106 [facility] Comment on above: Performed By: #### H IV12 #### [facility] [address] [address] [address] Brock Elias Potassium [Moles/Vol] 4.0 mmol/L Normal 3.5-5.1 [facility] Comment on above: Performed By: #### H IV12 #### [facility] [address] [place] [address] Dr. Brock Elias Protein [Mass/Vol] 7.4 g/dL Normal 6.4-8.2 [facility] Comment on above: Performed By: #### H IV12 #### [facility] [address] [address] [address] Brock Elias Sodium [Moles/Vol] 139 mmol/L Normal 136-145 [facility] Comment on above: Performed By: #### H IV12 #### [facility] [address] [place] [address] Dr. Brock Elias Urea nitrogen [Mass/Vol] 12.0 mg/dL Normal 7.0-18.0 [facility] Comment on above: Performed By: #### H IV12 #### [facility] [address] [place] [address] Dr. Brock Elias Urea nitrogen/Creatinine [Mass ratio] 16.4 mg/mg Normal [facility] Comment on above: Performed By: #### H IV12 #### [facility] [address] [place] [address] Dr. Brock Elias TSHon 04-14-2022 TSH 1.033 uIU/mL Normal 0.358-3.740 [facility] Comment on above: Performed By: #### H IV12 #### [facility] [address] [place] [address] Dr. Brock Elias HEMOGLOBINon 04-10-2022 Hemoglobin (Bld) [Mass/Vol] 13.0 g/dL Normal 12.0-16.0 [facility] Comment on above: Performed By: #### C MP #### [facility] [address] [place] [address] Dr. Brock Elias Operative Reporton 2 Operative Report MR#: [id number] [facility] Pt. Name: Radha Santacruz Room #: [id number] Discharge 03/01/2022 Date: Birthdate: 1975 OPERATIVE REPORT [...] point, (more content not included)... Normal [facility] POC GLUCOSE LABon 02-28-2022 Glucose [Mass/Vol] 94 mg/dL Normal 70-100 [facility] Comment on above: Performed By: #### 8 5499 #### [address] PORTABLE KNEE RIGHT 2 VWSon 02-28-2022 PORTABLE KNEE RIGHT 2 VWS [facility] Department of Radiology [address] [place] [phone] ======== Patient Name: RADHA SANTACRUZ : [...] fracture. Electronically signed: Joellen Sweeney. Transcribed by: [email or web address], User Resident: Electronically Signed by: JOELLEN SWEENEY @ 02/28/2022 05:45 PM Normal [facility] Comment on above: Order Comment: Hardw are Evaluation, in PACU MRI KNEE WO CONTRAST RIGHTon 12-10-2021 MRI KNEE WO CONTRAST RIGHT [facility] Department of Radiology [address] [place] [phone] ======== Patient Name: RADHA SANTACRUZ [...] above Electronically signed: Adelaida Dinh. Transcribed by: [email or web address], User Resident: Electronically Signed by: ADELAIDA DINH @ 12/11/2021 09:43 AM Normal [facility] Comment on above: Order Comment: LEIJA AND NEPHEW PROTOCOL , Side: RIGHT KNEE LEFT 3 Son 11-21-2021 KNEE LEFT 3 S [facility] Department of Radiology [address] [place] [phone] ======== Patient Name: RADHA SANTACRUZ : 1975 Sex: F Age: Race: White Pt. Location: Patient Status: D Ordered Date: 11/21/2021 12:30:00 PM Completed Date: 11/21/2021 01:35 PM Requesting Provider: PETERSON BHATIA Attending Provider: PETERSON BHATIA Report Copy To: CM LEE Signs & Symptoms: M25.561 Pain in right knee I10 History: [place] Comments: Views (X-RAY, KNEE): AP, Lateral, [place] Exam: KNEE LEFT 3 [facility] ======== KNEE LEFT 3 [facility] 11/21/2021 1:35 PM CLINICAL INDICATIONS: M25.561 Pain in right knee I10 TECHNOLOGIST COMMENTS: Pt stated having bilateral knees pain, no known injury. QUESTION FOR THE RADIOLOGIST: Views (X-RAY, KNEE): AP, Lateral, [place] PROTOCOL: AP,Lateral and Tangential views were obtained. COMPARISON: 11/04/2014 FINDINGS: Severe joint space narrowing in the medial femorotibial compartment. Tricompartmental osteophyte formation. Small knee joint effusion. IMPRESSION: Tricompartmental osteoarthritis most prominent in the medial femorotibial compartment. Electronically signed: Elizabeth Landis. Transcribed by: [email or web address], User Resident: Electronically Signed by: ELIZABETH LANDIS @ 11/23/2021 03:26 PM Normal [facility] Comment on above: Order Comment: Views (X-RAY, KNEE): AP, Lateral, [place] KNEE RIGHT 3 [place] 2 KNEE RIGHT 3 S [facility] Department of Radiology [address] [place] [phone] ======== Patient Name: RADHA SANTACRUZ : 1975 Sex: F Age: Race: White Pt. Location: Patient Status: D Ordered Date: 11/21/2021 12:30:00 PM Completed Date: 11/21/2021 01:35 PM Requesting Provider: PETERSON BHATIA Attending Provider: PETERSON BHATIA Report Copy To: CM LEE Signs & Symptoms: M25.561 Pain in right knee I10 History: [place] Comments: Views (X-RAY, KNEE): AP, Lateral, [place] Exam: KNEE RIGHT 3 [facility] ======== KNEE RIGHT 3 [facility] 11/21/2021 1:35 PM CLINICAL INDICATIONS: M25.561 Pain in right knee I10 TECHNOLOGIST COMMENTS: Pt stated having bilateral knees pain, no known injury. QUESTION FOR THE RADIOLOGIST: Views (X-RAY, KNEE): AP, Lateral, [place] PROTOCOL: AP,Lateral and Tangential views were obtained. COMPARISON: 02/18/2011 FINDINGS: Severe tricompartmental osteophyte formation and joint space narrowing. No fracture. No malalignment. Moderate knee joint effusion. IMPRESSION: Severe tricompartmental osteoarthritis. Electronically signed: Elizabeth Landis. Transcribed by: [email or web address], User Resident: Electronically Signed by: ELIZABETH LANDIS @ 11/23/2021 03:26 PM Normal [facility] Comment on above: Order Comment: Views (X-RAY, KNEE): AP, Lateral, [place] LOWER EXTREMITY JOINT SURVEY on 11-21-2021 LOWER EXTREMITY JOINT SURVEY [facility] Department of Radiology [address] [place] [phone] ======== Patient Name: RADHA SANTACRUZ : [...] above. Electronically signed: Elizabeth Landis. Transcribed by: [email or web address], User Resident: Electronically Signed by: ELIZABETH LANDIS @ 11/23/2021 11:03 PM Normal [facility] Cytologyon 10-23-2021 Cytology (NOTE) INTERPRETATION Cervical material, (ThinPrep vial, Imaging-assisted review): Specimen Adequacy: Satisfactory for evaluation. - Endocervical/transform ation zone component present. Descriptive Diagnosis: Negative for intraepithelial lesion or malignancy. 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 High risk HPV DNA testing is requested if the diagnosis is abnormal GYNECOLOGIC CYTOLOGY REPORT Patient Name: RADHA SANTACRUZ [facility] Rec: [id number] Path Number: [id number] [employer] [facility] ANATOMIC PATHOLOGY [address] [place] [phone] Normal [facility] Comment on above: Performed By: #### P PPVP #### [employer] [address] [place] [id number] It Sales Executive: Saw Elizondo MD Surgical Pathologyon Surgical Pathology (NOTE) -- Diagnosis -- ENDOMETRIUM, BIOPSY: - DISORDERED PROLIFERATIVE ENDOMETRIUM. Harjit Flores M.D. Electronically Signed Out [facility]/10/25/2021 Clinical Information Pre-op Diagnosis: IRREGULAR/HEAVY MENSTRUAL BLEEDING Operative Findings: ENDOMETRIAL BX Source of Specimen A: ENDO BIOPSY Gross Description MYNOR HARLEY Blood-tinged mucinous material, 2.5 x 1.5 x 0.5 cm in aggregate. Entirely 1cs. mpb tm Microscopic Description The endometrium has disordered proliferative features. There is no evidence of atypia or malignancy. SURGICAL PATHOLOGY CONSULTATION Patient Name: ARDHA SANTACRUZ Med Rec: [id number] Path Number: [id number] [employer] [facility] ANATOMIC PATHOLOGY [address] [place] [phone] [facility] Comment on above: Performed By: #### P PPVS #### [employer] [address] [place] [id number] [employer] Sales Executive: Saw Elizondo MD Vital Signs Date Time Vital Sign Value Performing Clinician Facility 04-14-2024 12:06-0400 Body height 154.94 cm [facility] 04-14-2024 12:06-0400 Body mass index (BMI) [Ratio] 34 kg/m2 [facility] 04-14-2024 12:06-0400 Body temperature 97.8 [degF] [facility] 04-14-2024 12:06-0400 Body weight 81.64 kg [facility] 04-14-2024 12:06-0400 Diastolic blood pressure 66 mm[Hg] [facility] 04-14-2024 12:06-0400 Heart rate 89 /min [facility] 04-14-2024 12:06-0400 Respiratory rate 18 /min [facility] 04-14-2024 12:06-0400 SaO2% (BldA) [Mass fraction] 91 % [facility] 04-14-2024 12:06-0400 Systolic blood pressure 128 mm[Hg] [facility] 01-14-2024 10:51-0400 Body height 154.94 cm [facility] 01-14-2024 10:51-0400 Body mass index (BMI) [Ratio] 51.6 kg/m2 [facility] 01-14-2024 10:51-0400 Body temperature 97.8 [degF] [facility] 01-14-2024 10:51-0400 Body weight 124 kg [facility] 01-14-2024 10:51-0400 Diastolic blood pressure 84 mm[Hg] [facility] 01-14-2024 10:51-0400 Heart rate 74 /min [facility] 01-14-2024 10:51-0400 Respiratory rate 16 /min [facility] 01-14-2024 10:51-0400 SaO2% (BldA) [Mass fraction] 98 % [facility] 01-14-2024 10:51-0400 Systolic blood pressure 126 mm[Hg] [facility] 06-01-2023 16:00-0500 Body height Kayla Franklin Other [employer] [facility] [employer] Other 06-01-2023 16:00-0500 Body mass index (BMI) [Ratio] 51.84 kg/m2 Kayla Franklin Other [employer] Other 06-01-2023 16:00-0500 Body temperature 98.4 [degF] Kayla Franklin Other [employer] Other 06-01-2023 16:00-0500 Body weight 124.47 kg Kayla Franklin Other [employer] Other 06-01-2023 16:00-0500 Respiratory rate 18 /min Kayla Franklin Other [employer] Other 06-01-2023 16:00-0500 SaO2% (BldA) [Mass fraction] 93 % Kayla Franklin Other [employer] Other 03-05-2023 16:45-0400 Body temperature 97.2 [degF] Mohit Dejesus MD Work Phone: [facility] 03-05-2023 16:45-0400 Diastolic blood pressure 76 mm[Hg] Mohit Dejesus MD Work Phone: [employer] 03-05-2023 16:45-0400 Heart rate 75 /min Mohit Dejesus MD Work Phone: [employer] 03-05-2023 16:45-0400 Respiratory rate 16 /min Mohit Dejesus MD Work Phone: [employer] 03-05-2023 16:45-0400 SaO2% (BldA) [Mass fraction] 96 % Mohit Dejesus MD Work Phone: [employer] 03-05-2023 16:45-0400 Systolic blood pressure 141 mm[Hg] Mohit Dejesus MD Work Phone: [employer] 03-05-2023 12:57-0400 Body height 154.9 cm Mohit Dejesus MD Work Phone: [employer] 03-05-2023 12:57-0400 Body mass index (BMI) [Ratio] 49.32 kg/m2 Mohit Dejesus MD Work Phone: [employer] 03-05-2023 12:57-0400 Body weight 118.39 kg Mohit Dejesus MD Work Phone: [employer] Encounters Encounter Date Encounter Type Care Provider Facility Start: 04-14-2024 End: 04-14-2024 ambulatory [facility] Work Phone: Start: 04-14-2024 End: 04-14-2024 Patient encounter procedure [facility] Work Phone: Start: 02-04-2024 End: 02-04-2024 ambulatory MEDINA Roblero [facility] Start: 01-14-2024 End: 01-14-2024 ambulatory [facility] Work Phone: Start: 01-14-2024 End: 01-14-2024 Patient encounter procedure [facility] Work Phone: Start: 12-10-2023 End: 12-10-2023 ambulatory BRITTNEY [facility] Start: 11-02-2023 End: 11-02-2023 ambulatory HAILE NAJERA [facility] Start: 10-29-2023 End: 10-29-2023 ambulatory MEDINA Annika [facility] Start: 09-29-2023 End: 09-29-2023 ambulatory [facility] Start: 09-08-2023 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 Start: 09-03-2023 End: 09-03-2023 ambulatory [facility] Start: 09-03-2023 End: 09-03-2023 ambulatory [facility] Start: 08-26-2023 Telephone encounter Fatmata Barger [facility] Start: 08-25-2023 End: 08-25-2023 ambulatory BRITTNEY [facility] Start: 08-24-2023 End: 08-24-2023 ambulatory ALIS MENDEZ Not Available Start: 08-24-2023 End: 08-24-2023 ambulatory ALIS MENDEZ Not Available Start: 08-14-2023 End: 08-14-2023 ambulatory VALORIE ARIAS [facility] Start: 07-30-2023 End: 07-30-2023 ambulatory MEDINA nAnika [facility] Start: 07-27-2023 End: 07-27-2023 ambulatory MEDINA Roblero [facility] Start: 06-01-2023 End: 06-01-2023 ambulatory Kayla Reid Other [employer] [employer] Other Start: 06-01-2023 Office outpatient vi sit 15 minutes Kayla Reid [facility] Start: 05-25-2023 End: 05-25-2023 ambulatory ADELIADA SUBRAMANIAN Not Available Start: 05-25-2023 End: 05-25-2023 ambulatory ADELAIDA SUBRAMANIAN Not Available Start: 04-27-2023 End: 04-27-2023 [facility] Start: 03-05-2023 End: 03-05-2023 ambulatory [facility] Start: 03-05-2023 End: 03-05-2023 Subsequent hospital visit by physician Mohit Dejesus MD Work Phone: [facility] Start: 02-19-2023 End: 02-24-2023 ambulatory [facility] Start: 10-28-2022 End: 10-29-2022 ambulatory DONNIE SHAMMO Facility:[facility] Start: 10-09-2022 ambulatory DONNIE SHAMMO Facility:H 1 [...] Facility:[facility] Start: 05-07-2022 ambulatory Rick STAPLES Facility :[facility] Start: 04-29-2022 End: 04-30-2022 ambulatory DONNIE SHAMMO Facility:[facility] Start: 04-29-2022 ambulatory DONNIE SHAMMO Facility:[facility] Start: 04-20-2022 Encounter for genera l adult medical examination without abnormal findings DONNIE SHAMMO [facility] Start: 04-14-2022 ambulatory DONNIE SHAMMO Facility:[facility] Start: 04-14-2022 End: 04-15-2022 ambulatory DONNIE SHAMMO Facility:[facility] Start: 04-14-2022 End: 04-15-2022 Encounter for general adult medical examination without abnormal findings DONNIE SHAMMO Facility: Start: 04-10-2022 End: 04-11-2022 ambulatory DONNIE SHAMMO Facility: Start: 02-28-2022 End: 03-01-2022 ambulatory Peterson Jannette Facility:[facility] Start: 01-02-2022 End: 01-02-2022 Subsequent hospital visit by physician Kulwant Arenas MD Work Phone: [facility] Comment on above: No Show Start: 12-10-2021 End: 12-11-2021 ambulatory Peterson Jannette Facility:[facility] Start: 11-21-2021 End: 11-22-2021 ambulatory Peterson Jannette Facility:[facility] Start: 10-23-2021 End: 10-24-2021 ambulatory KULWANT Sebastian [facility] Start: 10-23-2021 End: 10-23-2021 Patient encounter procedure [facility] Start: 10-23-2021 End: 10-23-2021 Subsequent [...] Detail Author Start: 08-08-2026 Lipid panel Lipids [facility] Start: 10-23-2024 Screening for malign ant neoplasm of cervix [facility] Start: 03-31-2024 Adult BMI Screening Adult BMI Screen ing [facility] Start: 03-31-2024 Tobacco Screening Tobacco Screening [facility] Start: 02-20-2024 Hemoglobin A1c measurement A1C test (Diabetic or Prediabetic) [facility] Start: 08-27-2023 End: 08-27-2023 Patient encounter procedure 08/27/2023 12:00 PM EST Office Visit [facility] [address] [place] [address] Tram Hahn MD [address] [place] [address] [facility] Start: 2023 Administration of varicella zoster vaccine Zoster (Shingles) Vaccine (1 of 2) [facility] Start: 03-05-2023 End: 03-05-2023 Impltj/rplcmt ithcl/edrl drug nfs prgrbl pump PAIN PUMP INSERTION REMOVAL Post laminectomy syndrome 03/05/2023 2:[address] [facility] Start: 02-20-2023 Influenza vaccination Influenza Vacc ine [facility] Start: 01-20-2023 Influenza vaccination Flu vaccine (# 1) [facility] Start: 10-14-2022 Creatinine measurement Creatinine [facility] Start: 10-14-2022 Potassium [Moles/vol ume] in Serum or Plasma Potassium [facility] Start: 02-20-[address] [facility] Start: 01-08-2022 End: 01-08-2022 Admission to same day surgery center 01/08/2022 Surgery IP Unit Kulwant Arenas MD [address] [place] [address] [address] [place] [address] DILATATION AND CURETTAGE HYSTEROSCOPY CAUTERY ABLATION-NOVASURE [facility] Comment on above: DILATATION AND CURET TAGE HYSTEROSCOPY CAUTERY ABLATION-NOVASURE Start: 01-08-2022 End: 01-08-2022 Hysteroscopy endometrial ablation DILATATION AND CURETTAGE HYSTEROSCOPY CAUTERY ABLATION DYSFUNCTIONAL UTERINE BLEEDING 01/08/2022 8:[address] [facility] Start: 01-08-2022 Subsequent hospital visit by physician 01/08/2022 Hospital Encounter IP Unit Kulwant Arenas MD [address] [place], [place] [id number] [facility] Start: 11-01-2021 End: 11-01-2021 Patient encounter procedure 11/01/2021 Office Visit Obstetrics and Gynecology Kulwant Arenas MD [address] [place] [address] [facility] Start: 11-01-2021 End: 11-01-2021 Professional / ancillary services management 11/01/2021 Ancillary Procedure Obstetrics and Gynecology [facility] Start: 06-22-2021 DEPRESSION ASSESSMENT DEPRESSION ASS ESSMENT [facility] Start: 2018 COLOGUARD (FIT-DNA) COLOGUARD (FIT-D NA) [facility] Start: 2018 Colonoscopy COLONOSCOPY [facility] Start: 2018 COLORECTAL CANCER SCREENING COLORECTAL CANCER SCREENING [facility] Start: [address] COLONOGRAPHY [facility] Start: 2018 DIABETES SCREEN DIABETES SCREEN [facility] Start: 2018 FECAL OCCULT BLOOD FECAL OCCULT BLOO D [facility] Start: 2018 LIPID SCREEN LIPID SCREEN [facility] Start: 2018 Screening for malign ant neoplasm of colon [facility] Start: 2018 [facility] Start: 2013 Mammography MAMMOGRAM [facility] Start: 2013 Screening for malign ant neoplasm of breast Breast cancer screen [facility] Start: 2008 Diabetes screen Diabetes screen [facility] Start: 2003 HPV TESTING HPV TESTING [facility] Start: 2003 Screening for malign ant neoplasm of cervix [facility] Start: 1994 PAP TESTING PAP TESTING [facility] Start: 1994 Screening for malign ant neoplasm of cervix Pap smear [facility] Start: 1992 DTaP,Tdap and Td Vaccines (1 - Tdap) DTaP,Tdap and Td Vaccines (1 - Tdap) [facility] Start: 1992 DTaP/Tdap/Td vaccine (1 - Tdap) DTaP/Tdap/Td vaccine (1 - Tdap) [facility] Start: 1992 Urine microalbumin profile DTAP,TDAP,TD (1 - Tdap) [facility] Start: 1991 Adult BMI Follow Up Plan Adult BMI Follow Up Plan [facility] Start: 1991 Hepatitis C screening Hepatitis [facility] Start: 1991 HEPATITIS C SCREENING HEPATITIS C [facility] Start: 1991 HIV SCREENING HIV SCREENING [facility] Start: 1988 HIV screening HIV screen [facility] Start: 1985 Depression Screen Depression Screen [facility] Start: 1985 Depression Screening Depression Scre ening [facility] Start: 1983 Lipid panel Lipids [facility] Start: 1979 Pneumococcal 0-64 ye ars Vaccine (1 - PCV) Pneumococcal 0-64 years Vaccine (1 - PCV) [facility] Start: 1978 COVID-19 Vaccine (1) COVID-19 Vaccin e (1) [facility] Start: 01-02-1974 COVID-19 Vaccine (#1) COVID-19 Vacci ne (#1) [facility] Start: 1973 HEPATITIS B (1 of 3 - 3-dose series) HEPATITIS B (1 of 3 - 3-dose series) [facility] Start: 1973 Hepatitis B vaccine (1 of 3 - 3-dose series) Hepatitis B vaccine (1 of 3 - 3-dose series) [facility] Start: 1973 Tobacco Counseling Tobacco Counselasael collazo [facility] End: 03-06-2023 Blood glucose - POCT Blood glucose - POCT Point of Care Testing Routine One Time for 1 Occurrences starting 03/06/2023 until 03/06/2023 [employer] Comment on above: One Time for 1 Occur rences starting 03/06/2023 until 03/06/2023 End: 10-23-2021 Cytopathology procedure, preparation of smear, genital source PAP SMEAR Lab Routine Women's annual routine gynecological examination 1 Occurrences starting 10/23/2021 until 10/23/2021 [employer] Phone: Comment on above: 1 Occurrences starti ng 10/23/2021 until 10/23/2021 End: 03-05-2023 INITIATE PACU OXYGEN THERAPY PROTOCOL Initiate PACU Oxygen Therapy Protocol Respiratory Care Routine Continuous until discontinued starting 03/05/2023 [employer] Phone: Comment on above: Continuous until dis continued starting 03/05/2023 Oxygen therapy [[facility] Data Set] Initiate Oxygen Therapy Protocol Respiratory Care Routine As Needed until discontinued starting 03/05/2023 [employer] Phone: Comment on above: As Needed until disc ontinued starting 03/05/2023 End: 03-06-2023 , urine , urine Lab Routine Tomorrow AM for 1 Occurrences starting 03/06/2023 until 03/06/2023 [employer] Comment on above: Tomorrow AM for 1 Oc currences starting 03/06/2023 until 03/06/2023 End: 10-23-2021 Surgical Pathology Surgical Pathology Lab Routine Irregular menstrual bleeding 1 Occurrences starting 10/23/2021 until 10/23/2021 [employer] Phone: Comment on above: 1 Occurrences starti ng 10/23/2021 until 10/23/2021 End: 10-23-2021 SURGICAL PATHOLOGY REPORT SURGICAL PATHOLOGY REPORT Lab Routine Once for 1 Occurrences starting 10/23/2021 until 10/23/2021 [employer] Phone: Comment on above: Once for 1 Occurrenc es starting 10/23/2021 until 10/23/2021 Aguilar Oscari c Payers Date Payer Category Payer Medicaid MEDICAID [facility] MEDICAID [id number] 2021-Present [phone] [address] [place] [address] Medicaid [id number] 2013 Medicare [id number] [id number] 1973 Unknown [id number] [id number]3 1973 Unknown [id number] 2.16.840.1.013952.3.579.2.647 1973 Unknown [id number] 2.16.840.1.787735.3.579.2.647 1973 Unknown [id number] 2.16.840.1.819082.3.579.2.647 1973 Unknown [id number] 2.16.840.1.676285.3.579.2.727 1973 Unknown [id number] 2.16.840.1.713295.3.579.2.727 1973 Unknown [id number] 2.16.840.1.550855.3.579.2.593 1973 Unknown [id number] 2.16.840.1.380406.3.579.2.593 1973 Unknown [id number] 2.16.840.1.569023.3.579.2.593 1973 Unknown [id number] 2.16.840.1.927439.3.579.2.593 1973 Unknown [id number] 2.16.840.1.091342.3.579.2.593 1973 Unknown [id number] 2.16.840.1.332528.3.579.2.593 1973 Unknown [id number] 2.16.840.1.968532.3.579.2.593 1973 Unknown [id number] 2.16.840.1.283523.3.579.2.593 1973 Unknown [id number] 2.16.840.1.905842.3.579.2.593 1973 Unknown [id number] 2.16.840.1.073679.3.579.2.593 1973 Unknown [id number] 2.16.840.1.658507.3.579.2.593 1973 Unknown [id number] 2.16.840.1.308731.3.579.2.593 1973 Unknown [id number] 2.16.840.1.857046.3.579.2.593 1973 Unknown [id number] 2.16.840.1.344054.3.579.2.593 1973 Unknown [id number] 2.16.840.1.823923.3.579.2.177 1973 Unknown [id number] 2.16.840.1.778237.3.579.2.177 1973 Unknown [id number] 2.16.840.1.980838.3.579.2.1259 1973 Unknown [id number] 2.16.840.1.316613.3.579.2.1259 1959 Medicaid [id number] [id number] [id number] 1959 Medicare [id number] [id number] [id number] 1959 Self-pay Unknown [id number] 2.16.840.1.883624.3.579.2.593 Social History Date Type Detail Facility Start: 10-23-2021 End: 03-31-2023 Tobacco [facility] status [email or web address] of [facility] use Cigarette Smoker [facility] Phone: Start: 08-02-2020 End: 10-23-2021 Cigarettes smoked current (pack per day) - Reported 1.5 [employer] Phone: Start: 10-23-2021 End: 03-31-2023 Tobacco use and exposure Smokeless tobacco non-user [employer] Phone: Start: 10-23-2021 End: 11-01-2021 Alcohol intake Ex-drinker (finding) [employer] Phone: Start: 1975 Sex Assigned At Not on file [facility] Phone: Start: 02-19-2017 Tobacco smoking stat us NHIS Occasional tobacco smoker [facility] Start: 03-11-2017 End: 06-10-2022 Alcohol intake Current non-drinker of alcohol (finding) [facility] Start: 02-19-2017 End: 06-10-2022 Tobacco Comment 23 cigarettes to 2 pks per day [facility] History of tobacco use Passive smoker [facility] Start: 03-05-2023 End: 03-31-2023 Alcohol intake Current drinker of alcohol (finding) [facility] [employer] Start: 08-02-2020 End: 02-19-2023 [facility] Start: 02-19-2023 Alcohol Comment very rare- may be twice a year [facility] Start: 10-29-2021 Alcohol Comment rare [facility] Start: 06-01-2023 End: 04-14-2024 Tobacco smoking status NHIS Smoker (finding) [facility] Start: 1975 Sex Assigned At Female F [facility] Medical Equipment Procedure Code Equipment Code Equipment Origin al Text Equipment Identifier Dates Kit Catheter Rev Seg W [employer]ch [employer] Analyst Conn 2 Cllt Rul - [id number] Start: 03-05-2023 Clinical Notes 01-02-2022 to 02-04-2024 Telephone Encounter - Fatmata Barger CMA - 08/26/2023 9:55 AM ESTTelephone Encounter - Fatmata Barger, BEHAVIORAL HEALTH THERAPIST - 08/26/2023 9:55 AM EST Note Date & Type Note Facility 02-04-2024 Note Requesting refill me thotrexate to [facility] 02-04-2024 Note Attestation signed by Medina Montes MD at 02/07/2024 3:25 PM By using the attestations below, the signing clinician agrees that I have read and verified that the documentation has been personally reviewed by me and ensure that the documentation accurately reflects the encounter. GC: I saw this patient on the day of the encounter, performed the rawls portion(s) of the service participated in the management, and confirmed the resident's documentation. Please note there may be additional personal documentation from me. Subjective Patient ID: Radha Mendoza is a 48 y.o. 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 She presents as follow up, was last seen on 10/29/2023 Current medication regimen: Methotrexate 25 mg (10 tabs of 2.5 mg) weekly, folate supplementation. Excellent control with no side effects Patient reports tolerating her medications well with no significant side effects. She reports having mild brief morning stiffness, but denies pain, swelling. Reports needing medications refills today Patient continues to smoke cigarettes, 1.5 ppd. She has tried quitting multiple times unsuccessfully, she wants to try cutting down. HPI Review of Systems Constitutional: Positive for fatigue. Negative for chills, fever and unexpected weight change. HENT: Negative for mouth sores and trouble swallowing. Dry mouth from medication. Eyes: Negative for pain, redness and visual disturbance. No dry eyes. Respiratory: Positive for cough and shortness of breath. Negative for chest tightness and wheezing. Cardiovascular: Positive for leg swelling. Negative for chest pain and palpitations. Raynaud's phenomenon. Gastrointestinal: Negative for abdominal pain, constipation, diarrhea, nausea and vomiting. GERD. Genitourinary: Negative for difficulty urinating, dysuria and hematuria. Musculoskeletal: Negative for arthralgias, back pain, joint swelling (occasional in fingers, none today) and myalgias. Skin: Negative for rash. Neurological: Negative for dizziness, weakness, light-headedness, numbness (CTS bilaterally, legs and feet from neuropathy) and headaches. Objective Visit Vitals BP 94/63 (BP Location: Left wrist, Patient Position: Sitting) Pulse 78 Physical Exam Constitutional: General: She is not [...] Normal range of motion. Right lower leg: Edema present. Left lower leg: Edema present. Neurological: General: No focal deficit present. Mental Status: She is alert and oriented to person, place, and time. Psychiatric: Mood and Affect: Mood normal. Behavior: Behavior normal. Assessment/Plan Diagnoses and all orders for this visit: Seronegative rheumatoid arthritis (CMS/HCC) - methotrexate 2.5 mg tablet; Take 10 tablets (25 mg) by mouth once weekly. - folic acid (Folvite) 1 mg tablet; Take 1 tablet (1 mg) by mouth in the morning. Methotrexate, manager terminal, current use - folic acid (Folvite) 1 mg tablet; Take 1 tablet (1 mg) by mouth in the morning. - CBC and differential; Future - Comprehensive metabolic panel; Future 48 y.o. year old female with history of bilateral hand and right knee OA status post total knee replacement complicated by cellulitis, lumbar back surgery, migraine headaches, COPD/CESARIO on CPAP, history of SD, CHF, PTSD, bipolar, anxiety and morbid obesity presenting for routine follow up. Seronegative rheumatoid arthritis Long-term use of methotrexate Medication regimen: Methotrexate 25 mg (10 tabs of 2.5 mg) weekly, folate supplementation. *Presented with polyarthragias of the knees, wrists, hands, hip with AM pain/stiffness and associated synovitis Plan: - Continue [facility] medication regimen with refills today, 02/04/24: - Methotrexate 25 mg (10 tabs of 2.5 mg) weekly - Folate supplementation. - Medication monitoring with CBC and CMP every 3 months on Methotrexate therapy. - Last done in Jul 2023 and reviewed. - Will recheck labs today CMP and CBC - Return to clinic in 4 months. Bilateral knee osteoarthritis s/p R TKA Bilat (more content not included)... [facility] 12-10-2023 Note [facility] CARDIOLOGY PROGR ESS NOTE HPI: Radha Mendoza is a 48 y.o. female here for routine F/U HPI Presents today for known Chronic heart failure with preserved ejection fraction, morbid obesity, hypertension, dyslipidemia, history of chronic tobacco abuse, angiographically normal coronary arteries, who presents today for follow up. Patient here for 1 mo follow up diastolic heart failure, hypertension, and GUALLPA. She was started on Farxiga at last apt by Dr. Najera. BMP has not been completed yet. Patient says chest pain and lightheadedness has resolved. She has stopped spironolactone on her own accord. Admits that she stopped aldactone r/t having to fo pee so often. Overall states that SOB with exertion is no worse than usual, denied orthopnea with Cpap use. States that she drinks a lot of fluid each day r/t having a dry mouth. Review of Systems Constitutional: Positive for malaise/fatigue. Cardiovascular: Positive for dyspnea on exertion (COPD) and leg swelling. Respiratory: Positive for cough, shortness of breath and wheezing. Musculoskeletal: Positive for arthritis, back pain, joint pain and myalgias. Neurological: Positive for numbness. All other systems reviewed and are negative Visit Vitals BP 134/78 (BP Location: Right wrist, Patient Position: Sitting) Pulse 84 Ht 1.549 m (5' 1 ) Wt 128 kg (283 lb) SpO2 94% BMI 53.47 kg/m??? Smoking Status Every Day BSA 2.35 m??? Allergies Allergen Reactions Oxytocin Anaphylaxis and Other Adhesive Tape-Silicones Hives Doxycycline Dulaglutide Other reaction(s): Nausea And Vomiting, vomiting Imitrex [Sumatriptan] Morphine Nsaids (Non-Steroidal Anti-Inflammatory Drug) Other kidneys shut down Medications: Current Outpatient Medications on File Prior to Visit Medication Sig Dispense Refill albuterol 90 mcg/actuation inhaler INHALE 2 PUFFS BY MOUTH EVERY 4 HOURS IF NEEDED FOR SHORTNESS OF BREATH apixaban (Eliquis) 5 mg tablet Take 1 tablet (5 mg) by mouth in the morning and at bedtime. 180 tablet 3 atorvastatin (Lipitor) 10 mg tablet Take 1 tablet (10 mg) by mouth in the morning. 90 tablet 3 busPIRone (Buspar) 10 mg tablet 10 mg 1 (one) time each day. cariprazine (Vraylar) 4.5 mg capsule Take 4.5 mg by mouth in the morning. dapagliflozin propanediol (Farxiga) 10 mg Take by mouth. DULoxetine (Cymbalta) [address] capsule Take [...] 20 mg by mouth in the morning. metFORMIN XR (Glucophage-XR) 750 mg 24 hr tablet 1 (one) time each day at the same time. methotrexate 2.5 mg tablet Take 10 tablets (25 mg) by mouth once weekly. 40 tablet 6 metoprolol succinate XL (Toprol-XL) 25 mg 24 hr tablet Take 25 mg by mouth in the morning. Do not crush or chew. omeprazole (PriLOSEC) [address] capsule Take 20 mg by mouth in the morning. tiZANidine (Zanaflex) 4 mg tablet take 1 tablet by mouth three times a day if needed 15 traZODone (Desyrel) 150 mg tablet take 1 tablet by mouth at bedtime if needed Cirilo Ellipta 200-62.5-25 mcg blister with device INHALE 1 PUFF BY MOUTH ONCE DAILY spironolactone (Aldactone) 25 mg tablet Take 25 mg by mouth in the morning. varenicline (Chantix JAIME) 0.5 mg (11)- 1 mg (42) tablet use as directed for 30 DAYS No current facility-administered medications on file prior to visit. Physical Exam: Constitutional: Appearance: Normal appearance. Without apparent distress, obese HENT: Head: Normocephalic and atraumatic. Nose: Nose normal. Mouth/Throat: Mouth: Mucous membranes are moist. Eyes: Extraocular Movements: Extraocular movements intact. Conjunctiva/sclera: Conjunctivae normal. Neck: Vascular: No JVD. Cardiovascular: Rate and Rhythm: Normal rate and regular rhythm. Pulses: Dorsalis pedis pulses are 3 on the right side and 3on the left side. Posterior tibial pulses are 3 on the right side and 3 on the left side. Heart sounds: Normal heart sounds, S1 normal and S2 normal. Pulmonary: Effort: Pulmonary effort is normal. Breath sounds: Normal breath sounds. Abdominal: General: Bowel sounds are normal. Palpations: Abdomen is soft. Musculoskeletal: General: Normal range of motion. Cervical back: Normal range of motion. Right lower leg: No edema. Left lower leg: No edema. Skin: General: Skin is warm and dry. Capillary Refill: Capillary refill takes less than 2 seconds. Neurological: General: No focal deficit present. Mental Status: She is alert and oriented to person, place, and time. Psychiatric: Mood and Affect: Mood normal. Behavior: Behavior (more content not included)... [facility] 12-10-2023 Note Patient here for 1 m o follow up diastolic heart failure, hypertension, and GUALLPA. She was started on Farxiga at last apt by Dr. Najera. BMP has not been completed yet. Patient says chest pain and lightheadedness has resolved. She has stopped spironolactone on her own accord. Review of Systems Constitutional: Positive for malaise/fatigue. Cardiovascular: Positive for dyspnea on exertion (COPD) and leg swelling. Respiratory: Positive for cough, shortness of breath and wheezing. Musculoskeletal: Positive for arthritis, back pain, joint pain and myalgias. Neurological: Positive for numbness. All other systems reviewed and are negative. [facility] 12-10-2023 Note [facility] II- currently a ppears fairly euvolemic without exacerbation Continue GDMT- She has stopped aldactone r/t peeing so often Recommended pt to continue farxiga, and lasix 40 mg daily and can hold aldactone for now. Diuretic therapy- lasix Monitor daily weights, I&O, fluid restriction 1.5-2L/day, renal function and electrolytes- Sent pt to lab today for BMP [facility] 12-10-2023 Note HTN well controlled Continue lisinopril, toprol, [facility] 12-10-2023 Note [facility] Note Obesity is unchanged . F/U with PCP- recommended weight loss [facility] [facility] 12-10-2023 Note stable [facility] 12-10-2023 Note COPD is unchanged. F/U with Pulmonary- Dr Phan as scheduled [facility] 12-10-2023 Note Continue statin [facility] 11-02-2023 Note [facility] CARDIOLOGY PROGR ESS NOTE HPI: Radha Mendoza is a 48 y.o. female here for follow up HPI 48-year-old female with history of Chronic heart failure with preserved ejection fraction, morbid obesity, hypertension, dyslipidemia, history of chronic tobacco abuse, angiographically normal coronary arteries, who presents today for follow up. Patient states that she is now on Eliquis due to LE DVT. Says she has not been taking spironolactone. She was kept overnight this past weekend at [facility] for cellulitis she says. Denies recurrent chest pain and lightheadedness. Breathing is stable and unchanged per patient, chronic lymphedema of BLE RT > LT. Echo was performed and demonstrates preserved EF, mildly dilated RV, and mildly elevated RVSP (38 mmHg). Cardiology ROS: 10 point ROS is performed and is negative unless otherwise specified in HPI. Past Medical History: Diagnosis Date Angina pectoris ([facility]) Bipolar disorder, unspecified ([facility]) Cardiomyopathy CHF (congestive heart failure) ([facility]) Chronic back pain COPD (chronic obstructive pulmonary disease) ([facility]) Edema Hypertension Major depressive disorder Migraine headache Morbid obesity ([facility]) Nausea & vomiting Nicotine dependence, cigarettes, uncomplicated [...] use: Yes Types: Marijuana Visit Vitals BP 134/78 (BP Location: Right wrist, Patient Position: Sitting) Pulse 73 Ht 1.549 m (5' 1 ) Wt 128 kg (282 lb) SpO2 95% BMI 53.28 kg/m??? Smoking Status Every Day BSA 2.35 m??? Allergies Allergen Reactions Oxytocin Anaphylaxis and Other Adhesive Tape-Silicones Hives Doxycycline Dulaglutide Other reaction(s): Nausea And Vomiting, vomiting Imitrex [Sumatriptan] Morphine Nsaids (Non-Steroidal Anti-Inflammatory Drug) Other kidneys shut down Medications: Current Outpatient Medications on File Prior to Visit Medication Sig Dispense Refill albuterol 90 mcg/actuation inhaler INHALE 2 PUFFS BY MOUTH EVERY 4 HOURS IF NEEDED FOR SHORTNESS OF BREATH busPIRone (Buspar) 10 mg tablet 10 mg 1 (one) time each day. cariprazine (Vraylar) 4.5 mg capsule Take 4.5 [...] 20 mg by mouth in the morning. tiZANidine (Zanaflex) 4 mg tablet take 1 tablet by mouth three times a day if needed 15 traZODone (Desyrel) 150 mg tablet take 1 tablet by mouth at bedtime if needed Trelegy Ellipta 200-62.5-25 mcg blister with device INHALE 1 PUFF BY MOUTH ONCE DAILY varenicline (Chantix JAIME) 0.5 mg (11)- 1 mg (42) tablet use as directed for 30 DAYS spironolactone (Aldactone) 25 mg tablet Take 25 mg by mouth in the morning. No current facility-administered medications on file prior to visit. Physical Exam: Constitutional: Appearance: Normal appearance. Without apparent distress, obese HENT: Head: Normocephalic and atraumatic. Nose: Nose normal. Mouth/Throat: Mouth: Mucous membranes are moist. Eyes: Extraocular Movements: Extraocular movements intact. Conjunctiva/sclera: Conjunctivae normal. Neck: Vascular: No JVD. Cardiovascular: Rate and Rhythm: Normal rate and regular rhythm. Pulses: Radial, Dorsalis pedis pulses are 3 on the right side and 3on the left side. Posterior tibial pulses are 3 on the right side and 3 on the left side. Heart sounds: Normal heart sounds, S1 normal and S2 normal. Pulmonary: Effort: Pulmonary effort is normal. Breath sounds: Normal breath sounds. Abdominal: General: Bowel sounds are normal. Palpations: Abdomen (more content not included)... [facility] 10-29-2023 Note Subjective Patient ID: Radha Mendoza is a 48 y.o. 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 She presents for Follow-up. Excellent control with no side efects Medication regimen: Methotrexate 25 mg (10 tabs [...] patient is nervous/anxious. Objective Visit Vitals BP 97/65 (BP Location: Left arm, Patient Position: Sitting) Pulse 79 Physical Exam Constitutional: General: She is not [...] Affect: Mood normal. Behavior: Behavior normal. Assessment/Plan There are no diagnoses linked to this encounter. 48 y.o. year old female with history of bilateral hand and right knee OA status post total knee replacement complicated by cellulitis, lumbar back surgery, migraine headaches, COPD/CESARIO on CPAP, history of SD, CHF, PTSD, bipolar, anxiety and morbid obesity presenting for routine follow up. Seronegative rheumatoid arthritis Long-term use of methotrexate Medication regimen: Methotrexate 25 mg (10 tabs of 2.5 mg) weekly, folate supplementation. *Presented with polyarthragias of the knees, wrists, hands, hip with AM pain/stiffness and associated synovitis Plan: - Continue medication regimen with refills today, 07/30/23: - Methotrexate 25 mg (10 tabs of 2.5 mg) weekly - Folate supplementation. - Medication monitoring with CBC and CMP every 3 months on Methotrexate therapy. - Done in Jul 2023 and reviewed. - Due next visit. - Return to clinic in 3 months. Bilateral knee osteoarthritis s/p R TKA Bilateral hand osteoarthritis *in office [facility] ultrasound of the left knee on 04/27/2023 did not show double contour sign concerning for gout Bilateral carpal tunnel syndrome Tobacco dependence *Actively smoking 1.5 PPD Plan: - Again encouraged cessation and counseled that tobacco use can make inflammatory arthritis more difficult to control. Morbid obesity - BMI 51.02 - encouraged lifestyle modification [facility] 09-09-2023 Note Pre op risk Stratifi cation RCRI= 2 points Class III Risk 10.1 % 30-day risk of , SD, or cardiac arrest From a cardiac perspective pt may proceed with surgery, she is a low risk for a moderate risk surgery. Please monitor hemodynamics carefully and prevent any major fluid shifts. Recent echocardiogram- 09/07/23 at [facility]- Normal LVSF, EF 55%, RV mildly dilated with normal systolic function. No acute concerns in light recent BNP normal on 09/07/23 Recent ECG Brittney Betts [facility] Cardiology Available 7a-5pm via [employer] Chat Pager [phone] [facility] 09-03-2023 Note SUBJECTIVE: Chief complaint: Left [...] CHF (congestive heart failure), NYHA class I ([facility]) Chronic mental illness COPD (chronic obstructive pulmonary disease) ([facility]) Dyslipidemia Heart attack ([facility]) Hypertension Neuropathy Past Surgical History: Procedure Laterality [...] in the morning (more content not included)... [facility] 08-26-2023 Miscellaneous Notes RADHA CHAPMAN PT WANTS TO CANCEL APPT SCHEDULED FOR 08/27/2023. PHONED PT AND LM ON TO CONTACT OFFICE IF SHE DOES INDEED WANT TO CANCEL AND RESCHEDULE THIS APPT. documented in this encounter [facility] 08-26-2023 Telephone encounter Note RADHA CHAPMAN PT WANTS TO CANCEL APPT SCHEDULED FOR 08/27/2023. PHONED PT AND LM ON TO CONTACT OFFICE IF SHE DOES INDEED WANT TO CANCEL AND RESCHEDULE THIS APPT. [facility] 08-25-2023 Note [facility] II Continue GDMT- lasix 40 mg daily, and aldactone-- Diuretic therapy Monitor daily weights, I&O, fluid restriction 1.5-2L/day, renal function and electrolytes- [facility] 08-25-2023 Note Hypertension is well controlled Continue lisinopril, toprol, aldactone [facility] 08-25-2023 Note Recommended smoking cessation, she is starting chantix for smoking cessation as prescribed from DR Phan [facility] 08-25-2023 Note Continue [facility] Order echocardiogram to assess cardiac function, RV size and function, Rt sided pressures, and valvular function [facility] 08-25-2023 Note New patient here to establish care. She was seen by [facility] cardiology in Mar 2023. States she has hx of SD years ago in [place], but denies stents. Has hx of CHF, with last echo being done in Jul 2021 at [facility]. C/o SOB and fatigue. Has had chest [...] All other systems reviewed and are negative. [facility] 08-25-2023 Note UTP CARDIOLOGY PROGR ESS NOTE HPI: Radha Mendoza is a 48 y.o. female here as new pt to establish care. HPI 47-year-old female with history of Chronic heart failure with preserved ejection fraction, morbid obesity, hypertension, dyslipidemia, history of chronic tobacco abuse, angiographically normal coronary arteries. New patient here to establish care. She was seen by [facility] cardiology in Mar 2023. States she has hx of SD years ago in [place], but denies stents. Has hx of CHF, [facility] C/o SOB and fatigue. Has had chest [...] Past Medical History: Diagnosis Date Angina pectoris ([facility]) Bipolar disorder, unspecified ([facility]) Cardiomyopathy CHF (congestive heart failure) ([facility]) Chronic back pain COPD (chronic obstructive pulmonary disease) ([facility]) Edema Hypertension Major depressive disorder Migraine headache Morbid obesity ([facility]) Nausea & vomiting Nicotine dependence, cigarettes, uncomplicated [...] normal. Mouth/Throat: Mouth (more content not included)... [facility] 07-30-2023 Note Patient ID: Radha Mendoza is a 48 y.o. female. Therapeutic injection carpal tunnel Date/Time: 07/30/2023 2:38 PM Performed by: Medina Montes MD Authorized by: Medina Montes MD Consent: Consent obtained: Verbal Consent given by: Patient Risks, benefits, and alternatives were discussed: yes Risks discussed: Bleeding and incomplete drainage Alternatives discussed: No treatment [place] protocol: Procedure explained and questions answered to [...] Procedure completion: Tolerated well, no immediate complications [facility] 07-30-2023 Note Attestation signed by Medina [...] COPD/CESARIO on CPAP, tobacco dependence, history of SD, CHF, PTSD, bipolar, anxiety and morbid obesity. [...] orders for this visit: Seronegative rheumatoid arthritis ([facility]) - folic acid (Folvite) 1 mg tablet; Take 1 tablet (1 mg) by mouth in the morning. - methotrexate 2.5 mg tablet; Take 10 tablets (25 mg) by mouth once weekly. Methotrexate, snf, current use - folic acid (Folvite) 1 [...] migraine headaches, COPD/CESARIO on CPAP, history of SD, CHF, PTSD, bipolar, anxiety and morbid obesity presenting for routine follow up. Seronegative rheumatoid arthritis Long-term use of methotrexate Medication regimen: Methotrexate 25 mg (10 tabs of 2.5 mg) weekly, folate supplementation. *Worsened disease with DAS28 (more content not included)... [facility] 07-27-2023 Note Attestation signed by Medina Montes MD at 07/29/2023 11:46 AM I personally saw and examined the patient on the same date of service as resident/fellow . I discussed the findings and therapeutic plan with the resident/fellow . I agree with the documentation, except for any edits/updates below. Teaching Physician's Revisions: Subjective Patient ID: aRdha Mendoza is a 48 y.o. female who presents for No chief complaint on file.. HPI 47 y.o. year old female with history of seronegative RA, bilateral hand and right knee OA status post total knee replacement complicated by cellulitis, lumbar back surgery, migraine headaches, COPD/CESRAIO on CPAP, history of SD, CHF, PTSD, bipolar, anxiety and morbid obesity [...] migraine headaches, COPD/CESARIO on CPAP, history of SD, CHF, PTSD, bipolar, anxiety and morbid obesity [...] past 36 hour(s)). No follow-ups on file. [facility] 06-01-2023 Evaluation note Encounter Date Diagnosis [...] your primary care provider in 3-5 days. [employer] Other 11-06-2023 Note Attestation signed by Medina [...] migraine headaches, COPD/CESARIO on CPAP, history of SD, CHF, PTSD, bipolar, anxiety and morbid obesity [...] migraine headaches, COPD/CESARIO on CPAP, history of SD, CHF, PTSD, bipolar, anxiety and morbid obesity [...] Garcia MD Rheumatology Fellow (more content not included)...[facility]09-14-2023 Hospital Discharge instructions* Discharge Instructions* Nichelle [...] completely saturates the bandage documented [facility] NotePROCEDURE: XR HIPS MARTHA 5V W PELVIS HISTORY: Joint pain COMPARISON: None. FINDINGS: BONES:No fracture, acute abnormality, or significant arthropathy. SOFT TISSUES:No visible soft tissue swelling. EFFUSION:None visible. OTHER: Mechanical fusion and degenerative changes of lower lumbar spine. IMPRESSION: 1. No acute bone abnormality or significant degenerative changes of the hip joints. Electronically authenticated by: GILL MORENO Date: 2022-08-13 10:48[facility]12-07-2022 Miscellaneous Notes* Telephone Encounter - Bandar Laguna - 05/28/2022 2:21 PM EST Pt is being referred by [facility] dx Breast Ca. Per Karina Antunez schedule new pt consult once we have a bxdate. They will call us when it is scheduled. [facility] History of Present illness Narrative* Katy Guo RN - 01/02/2022 9:00 AM EDT Patient did not show for appointment at 9am. Left message to call to reschedule. Dr. Arenas office notified. documented in this encounter[facility]LE[facility]ASTQio Phone: evaluation note* Diagnosis Irregular menstrual bleeding Irregular menstrual cycle Women's annual routine gynecological examination [email or web address] Phone: evaluation noteNo assessment information available [facility] Work Phone: History general Narrative - Reported* Type [...] pump battery change Hospitalization History see above [employer] Other InstructionsNot on filedocumented in this encounter [employer] Summary Purpose Family History Relationship Condition Age at Onset Recorded Date/T rola mother Diabetes mellitus Unknown Heart disease Unknown Advance Directives Advance Directive Response Recorded Date/ Time Advance Directives No July 20, 2017 3:38pm Chief Complaint and Reason for Visit Chief Complaint Referred for Celluli tis and DVT RLE Chief Complaint possible cellulitis Additional Source Comments Care Teams (unrecognized sec tion and content) Registered Nurse Supervisor Relationship Specialty Start Date End Date Wally Ghosh MD [address] [place] [address] PCP - General 11/06/21 Registered Nurse Supervisor Relationship Specialty Start Date End Date Mingo Thapa [address] [address] PCP - General Family Medicine 02/19/17 Registered Nurse Supervisor Relationship Specialty Start Date End Date Mingo Thapa [address] [address] PCP - General Family Medicine 02/19/17 Registered Nurse Supervisor Relationship Specialty Start Date End Date Donnie Kaminski APRN - [employer] [address] [place] [address] PCP - General Nurse Practitioner 02/19/23 Registered Nurse Supervisor Relationship Specialty Start Date End Date Wally Ghosh MD [address] [place] [address] PCP - General Internal Medicine 08/08/21 Team Status: Active Member Role Status Dates Bertin Pelaez PA-C Primary Care Provider Active Team Status: Inactive Member Role Status Dates Joellen Tomlinson MD Attending Provider Active Start: January 14, 2024 End: January 14, 2024 Bertin Pelaez PA-C Primary Care Provide r, Referring Provider Active Start: January 14, 2024 End: January 14, 2024 Team Status: Inactive Member Role Status Dates Bertin Pelaez PA-C Primary Care Provider Active Start: April 14, 2024 End: April 14, 2024 Maira Vigil APRN Attending Provider Active Start: April 14, 2024 End: April 14, 2024 INFORMATION SOURCE (unrecogn ized section and content) DATE CREATED AUTHOR [facility]2022 [facility] DATE CREATED AUTHOR AUTHOR'S ORGANIZ ATION 03/03/2022 [facility] DATE CREATED AUTHOR AUTHOR'S ORGANIZ ATION 05/02/2022 [facility] DATE CREATED AUTHOR AUTHOR'S ORGANIZ ATION 05/31/2022 [facility] DATE CREATED AUTHOR AUTHOR'S ORGANIZ ATION 10/29/2022 [facility] DATE CREATED AUTHOR AUTHOR'S ORGANIZ ATION 03/07/[address] [facility] DATE CREATED AUTHOR AUTHOR'S ORGANIZ ATION 08/25/2023 [facility] EPIC DATE CREATED AUTHOR AUTHOR'S ORGANIZ ATION 09/09/2023 [facility] DATE CREATED AUTHOR AUTHOR'S ORGANIZ ATION 10/22/2023 [facility] DATE CREATED AUTHOR AUTHOR'S ORGANIZ ATION 01/30/2024 [facility] EPIC DATE CREATED AUTHOR AUTHOR'S ORGANIZ ATION 02/08/2024 [facility] Source Comments (unrecognize d section and content) In the event this informatio n is protected by the Federal Confidentiality of Alcohol and Drug Abuse Patient Records regulations: The Federal rules restrict any use of the information to criminally investigate or prosecute any alcohol or drug abuse patient.[facility] Hospital[facility] the event this information is protected by the Federal Confidentiality of Alcohol and Drug Abuse Patient Records regulations: The Federal rules restrict any use of the information to criminally investigate or prosecute any alcohol or drug abuse patient.[facility] Reason for Visit (unrecogniz ed section and content) Reason Comments Appointment Specialty Diagnoses / Procedures Referred By Adriana richardson Referred To Contact Diagnoses Post laminectomy syndrome Post laminectomy syndrome [M96.1] Procedures OR IMPLTJ/RPLCMT ITHCL/EDRL DRUG NFS PRGRBL PUMP INTERTHECAL PAIN PUMP REPLACEMENT Mohit Dejesus MD [address] [place] [phone] [facility] [address] [place] [address] Referral ID Status Reason Start Date Expiration Date Visits Re quested Visits Authorized [id number] 1 1 Scheduled Active and Recently Administ [...] - Prov ider: Gunjan East, BRENDA - MIKAYLA - Comment: given over 1 hr) Continuous [...] Pre-op (day of surgery) bupivacaine-EPINEPHrine (MARCAINE-w/EPINEPHRINE) 0.5% -1:[id number] 30 mL, lidocaine 1 % 40 mL [...] Oral, ONCE PRN, 1 dose, Starting on Etlma 03/05/23 at 1540, Until Thu03/06/23 at 1540, [...] = 20 mL/lumen, Pre-op (day of surgery) Goals (unrecognized section and content) Goals may be documented in a n alternate section FOR RECORDS PERTAINING TO PATIENTS WHO ARE [...] BE BASED ON THE PRIMARY CLINICAL RECORDS. [facility] [employer] [facility]. provides no warranty or guarantee of the accuracy or completeness of information in this document.
== END 2024-04-20 07:51 | disposition home or self-care (01) ==
LOC: MAMMO 07:51
PROVIDERS: Visit Provider Nurse Practitioner Family
DX: R92.8 Other abnormal and inconclusive findings on diagnostic imaging of breast (principal); Z80.3 Family history of malignant neoplasm of breast
CPT/HCPCS: 76642; 77065

== ENCOUNTER 2024-10-14 07:17 | Outpatient (OUT) | payer MEDICARE, SELFPAY ==
--- NOTE | 2024-10-14 07:05 | NM_ITS ---
[address] [address] Patient Name: FIDELINA FONTENOT MRN: [id number] date: 1975 Sex: F Assigned Patient Location: [place] Current Patient Location: [place] Accession/Order Number: [id number] Exam Date: 10/14/2024 10:23 Report Date: 10/14/2024 10:24 At the request of: NON-STAFF PHYSICIAN MD Procedure: NM gastric emptying study GASTRIC EMPTYING STUDY: CLINICAL HISTORY: NAUSEA AND VOMITING TECHNIQUE: Following the oral ingestion of 0.9 mCi Tc 99m labeled sulfur colloid mixed with egg, planar imaging of the abdomen was obtained. FINDINGS: The examination is nondiagnostic as the patient vomited within 30 minutes. [place] gastric emptying study IMPRESSION: NONDIAGNOSTIC STUDY. Impression dictated by: Felipa Landa Jr.OLennox 10/14/2024 10:24 AM Dictation Location: [place] [address] Electronically authenticated by: [id number] Y Date: 10/14/2024 10:24
== END 2024-10-14 07:18 | disposition home or self-care (01) ==
LOC: NM 07:17
DX: R11.2 Nausea with vomiting, unspecified (principal)
CPT/HCPCS: 78264; A9541

== ENCOUNTER 2025-05-24 11:00 | Outpatient (OUT) | payer MEDICARE, MEDICAID, SELFPAY ==
--- OUTSIDE RECORDS SUMMARY | 2019-03-24 03:04 | XMS_ITS | Continuity of Care Document ---
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 [address] [place], [place], [id number], [place]. tel:[phone] [facility], [address] [place] [address], [id number], [place] tel:[phone] [facility] Pain in right knee Pooja Navarrete. [address], [place], [id number], [place]. tel:[phone] [facility], [address] [place], [place], [id number], [place] tel:[phone] [facility] Pain in right knee Pooja Navarrete. [address] [place], [place], [id number], [place]. tel:[phone] Family History Family Member Type Diagnosis Age At Onset No Information Payers Payer name Insurance type Covered democrat ID Authoriza tion(s) No Information Social History Type Description Quantity Date Captured Comments Sex Female Smoking Status No Information Chief Complaint And Reason For Visit No Information Reason For Referral Reason For Referral No Information Plan Of Treatment Date Type Action Status Future Order: Radiology Order XR KNEE RT (DR PATTON) (XKNMORINR), Appointment on: , Sent on: Sent Future Order: Radiology Order XR KNEE RT (DR PATTON) (XKNMORINR), Appointment on: , Sent on: Sent Future Order: Radiology Order XR KNEE RT (DR PATTON) (XKNMORINR), Appointment on: , Sent on: Sent History Of Present Illness Encounter Date Complaint History Of Prese nt Illness No Information Functional Status Date Functional Assessmen t No Information Instructions Date Instruction Additional Infor mation No Information Assessments Type Assessment Date assessment Pain in right knee Patient Care Teams Name Effective Dates (start - stop) Status Members No Information
--- OUTSIDE RECORDS SUMMARY | 2024-02-15 05:45 | XMS_ITS | Continuity of Care Document ---
Author Organization [facility] Address [address] [place] [address] Phone Care Team Providers Care Mid Level Java Developer Name Role Phone Mikey Pablito WINN Unavailable Unavailable Allergies, Adverse Reactions, Alerts Substance Reaction Status Criticality NSAIDS (Non-Steroidal Anti-Inflammatory Drug) Active No Information doxycycline Active No Information Medications Medication Instructions Dosage Effective Dates (start - stop) Status Comments Proair Digihaler 90 mcg/actuation aerosol powder breath act, sensor inhale 2 puff by inhalation route every 4 - 6 hours as needed - Active prazosin 1 mg capsule take 1 capsule by oral route 3 times every day 1 MG - Active duloxetine 60 mg capsule,delayed release take 1 capsule by oral route every day 60 MG - Active omeprazole 20 mg capsule,delayed release take 1 capsule by oral route every day 30 minutes to 1 hour before a meal 20 MG - Active lamotrigine 100 mg tablet take 1 tablet by oral route every day 100 MG - Active lisinopril 20 mg tablet take 1 tablet by oral route every day 20 MG - Active folic acid 1 mg tablet take 1 tablet by oral route every day 1 MG - Active hydroxyzine HCl 50 mg tablet take 1 tablet by oral route 4 times every day 50 MG - Active trazodone 150 mg tablet take 1 tablet by oral route 2 times every day 150 MG - Active Vraylar 4.5 mg capsule take 1 capsule by oral route every day 4.5 MG - Active Farxiga 10 mg tablet take 1 tablet by or al route every day in the morning 10 MG - Active Kapspargo Sprinkle 25 mg capsule,extended release take 1 capsule by oral route every day 25 MG - Active atorvastatin 10 mg tablet take 1 tablet by oral route every day 10 MG - Active Eliquis 5 mg tablet take 1 tablet by ora l route 2 times every day 5 MG - Active buspirone 10 mg tablet take 1 tablet by oral route 2 times every day 10 MG - Active methotrexate sodium 2.5 mg tablet take 8 tablet by oral route every week 20 MG - Active Trelegy Ellipta 100 mcg-62.5 mcg-25 mcg powder for inhalation inhale 1 puff by inhalation route every day at the same time each day 1.00 puff - Active metformin ER 750 mg tablet,extended release 24 hr take 1 tablet by oral route every day with the evening meal 750 MG - Active Procedures Procedure Date Bitewig-single Film Intraoral-periapical 1st Film Hlnmuwvlx-ppkkyqpczb-qovp Additional Jan Ctbbpzczj-hroysbhwna-lunl Additional Jan Bhwoadxyp-mhjaujeiru-tpuf Additional Jan Oral Hygiene Instruction Limited Oral Eval Advance Directives Directive Yes / No Effective Date File Name No Information Encounters Encounter Description Practice Location Reason(s) For Visit Diagnoses Date Provider Providers Copied on Encounter [facility], [address] [place] [address], [id number], [place] tel:[phone] [facility] ER (chief complaint) Body mass index [BMI] 50.0-59.9, adultEncounter for screening for dental disorders Mikey Kenney. [address] [place] [address], [id number] , [place]. tel:[phone] Family History Family Member Type Diagnosis Age At Onset No Information Payers Payer name Insurance type Covered green party ID Authoriza tion(s) Self Pay Indigent 09 [id number] Social History Type Description Quantity Date Captured Comments Alcohol Use Details Unknown Caffeine Use Details Unknown Tobacco Use Status No Information Smoking Status No Information Sex Female Sexual Orientation Straight or heterosexual Jan Gender Identity Female Vital Signs Date / Time: Height Weight BMI Pulse Rate Blood Pressure Temperature Respiratory Rate Body Surface Area Head Circumference Head Circ. Percentile Wt./Stuart. Percentile BMI percentile Pulse Ox Inhaled Ox 10:46 AM 61.00 in 125.645 kg (277.00 lbs) 52.3 4 kg/m eter (2) 79 /min 135/81 mm[Hg] 96.40 F Chief Complaint And Reason For Visit From encounter dated 02/15/2024 10:45'. ER (chief complaint). Description: ER Reason For Referral Reason For Referral No Information Plan Of Treatment Date Type Action Status Goal Unhealthy drug use screening . Due on due Goal FOBT. Due on due Goal CT-Colonography. Due on due Goal PRAPARE ASSESSMENT. Due on A due Goal FIT. Due on due Goal Lipid panel. Due on due Goal Influenza vaccine. Due on due Goal FIT-DNA. Due on due Goal Depression screening. Due on due Goal Colonoscopy. Due on due Goal Mammogram. Due on due Goal Hepatitis C screening. Due o n due Goal Zoster vaccine (). Due on due Goal Tdap Vaccine. Due on 2023 due Goal HPV. Due on due Goal Tdap. Due on due Goal Dietary management education , guidance, and counseling completed Referral Ordered: [facility] timeframe: 6 Months. (related to Body mass index [BMI] 50.0-59.9, adult) ordered History Of Present Illness Encounter Date Complaint History Of Prese nt Illness ER ER Functional Status Date Functional Assessmen t No Information Instructions Date Instruction Additional Infor mation Giving encouragement to exercise Related to Body mass index [BMI] 50.0-59.9, adult Dietary management e ducation, guidance, and counseling Related to Body mass index [BMI] 50.0-59.9, adult Assessments Type Assessment Date assessment Body mass index [BMI] 50.0-59.9, adult Patient Care Teams Name Effective Dates (start - stop) Status Members No Information
--- OUTSIDE RECORDS SUMMARY | 2025-05-24 10:00 | XMS_ITS | Encounter Summary ---
Author Organization [facility] Address [address] [place] [address] Care Team Providers Care Outdoor Emergency Care Technician Name Role Phone Roscoe Phan MD Unavailable Syl Trotter Primary Care Provider + [phone] Ysabel Gomez CNP Unavailable Reason for Referral * Imaging (Routine) - Pending ReviewSpecialtyDiagnoses / ProceduresReferred By ContactReferred To ContactCardiology Diagnoses Leg swelling Hx of deep venous thrombosis Procedures Vascular US lower extremity venous insufficiency bilateral Natasha Michaud CNP [address] [place] [address] Phone: tel: fax: Referral IDStatusReasonStart DateExpiration DateVisits RequestedVisits [id number] Review Perform Procedure * Imaging (Routine) - Pending ReviewSpecialtyDiagnoses / ProceduresReferred By ContactReferred To ContactCardiology Diagnoses Leg swelling Hx of deep venous thrombosis Procedures Vascular US lower extremity venous duplex left Natasha Michaud CNP [address] [place] [address] Phone: tel: fax: Referral IDStatusReasonStart DateExpiration DateVisits RequestedVisits [id number] Review Perform Procedure 1 Reason for Visit * ReasonCommentsFollow-upPatient is here today for a 1 year follow up. Patient complains of chest pain off and on for the last month, no other symptoms associated resolves on its own. Patient complains of SOB/GUALLPA, palpitation s/racing heart, fatigue., dizziness/lightheaded, leg swellingCardiomyopathy Benign HypertensiveCongestive Heart FailurePulmonary HypertensionChest Pain Shortness of BreathSOB/GUALLPA due to COPDHypertensionDizziness Dizziness/lightheaded with bending over and position changesPalpitations Palpitations/racing heart with and withoutFatigueIncreasedEdemaBilateral wore in left leg Encounter Details DateTypeDepartmentCare Team (Latest Contact Info)Ykbqjlotwmk86/03/2025 10:00 AM ESTOffice Visit [facility] [address] [place] [address] Natasha Michaud CNP [address] [place] [phone] Leg swelling (Primary Dx); Hx of deep venous thrombosis; Chronic heart failure with preserved ejection fraction (HFpEF) (CMS/HCC); Mixed hyperlipidemia Social History Tobacco UseTypesPacks/DayYears UsedDateSmoking Tobacco: Every DayCigarettes Passive Smoke Exposure: CurrentSmokeless Tobacco: NeverAlcohol UseStandard Drinks/WeekCommentsNever0 (1 standard drink = 0.6 oz pure alcohol)[facility] Utilities AnswerDate RecordedIn the past 12 months has the electric, gas, oil, or water [employer] threatened to shut off services in your home?No04/13/2025Humiliation, Afraid, Rape, and Kick questionnaireAnswerDate RecordedWithin the last year, have you been afraid of your partner or ex-partner?No04/13/2025Within the last year, have you been humiliated or emotionally abused in other ways by your partner or ex-partner?No04/13/2025Within the last year, have you been kicked, hit, slapped, or otherwise physically hurt by your partner or ex-partner?No 04/13/2025Within the last year, have you been raped or forced to have any kind of sexual activity by your partner or ex-partner?No04/13/2025Overall Financial Resource Strain (CARDIA)AnswerDate RecordedHow hard is it for you to pay for the very basics like food, housing, medical care, and heating?Not very hard 04/13/2025PHQ-2AnswerDate RecordedPatient Health Questionnaire-2 Score0 04/13/2025UT Safety & EnvironmentAnswerDate RecordedWithin the last year, have you been afraid of your partner or ex-partner?No09/03/2023Emotionally AbusedNot on file09/03/2023hysically AbusedNot on file09/03/2023Sexually AbusedNot on file09/03/2023In the past year have you been physically or sexually abused? Unrecognized value09/03/2023TransportationAnswerDate RecordedIn the past 12 months, has lack of transportation kept you from medical appointments or from getting medications?No04/13/2025Lack of Transportation (Non-Medical)Not on file 04/13/2025Housing Stability Vital SignAnswerDate RecordedIn the last 12 months, was there a time when you were not able to pay the mortgage or rent on time?No 04/13/2025Number of Times Moved in the Last YearNot on file04/13/2025t any time in the past 12 months, were you homeless or living in a usp (including now)? No04/13/2025Hunger Vital SignAnswerDate RecordedWithin the past 12 months, you worried that your food would run out before you got the money to buymore.Never true04/13/2025Ran Out of Food in the Last YearNot on file04/13/2025 CommentsUnknownSex and Gender InformationValueDate RecordedSex Assigned at Afdnou6803/16/2025 10:58 AM EDTLegal CisTlzofw63/29/2022 9:58 PM EDTGender AgajpbdqStrkjv18/25/2025 10:58 AM EDTSexual OrientationChoose not to disclose 03/16/2025 10:58 AM EDTdocumented as of this encounter Last Filed Vital Signs Vital SignReadingTime TakenCommentsBlood Bdazziix66/6905/24/2025 10:16 AM EST Cnprr727205/24/2025 10:16 AM ESTTemperature--Respiratory Rate--Oxygen Saturation 96%05/24/2025 10:16 AM ESTInhaled Oxygen Concentration--Zurjyt257 kg (262 lb) 05/24/2025 10:16 AM IYZQdsnuu385.9 cm (5' 1 )05/24/2025 10:16 AM ESTBody Mass Index49. 10:16 AM ESTdocumented in this encounter Patient Instructions * Patient Instructions* Natasha Michaud CNP - 05/24/2025 10:00 AM EST *Take lasix 40mg daily x 1 week *Schedule venous reflux study to assess your leg swelling *Have lipid lab levels done documented in this encounter Plan of Treatment DateTypeDepartmentCare Team (Latest Contact Info)Mykygernqcw04/18/2025 11:15 AM ESTFollow-Up [facility] [address] [place] [address] Medina Montes MD [address] [place] [address] NameTypePriorityAssociated DiagnosesOrder ScheduleVascular US lower extremity venous duplex leftVascular UltrasoundRoutine Leg swelling Hx of deep venous thrombosis Expected: 05/24/2025 (Approximate), Expires: 05/24/2027Vascular US lower extremity venous insufficiency bilateralVascular UltrasoundRoutine Leg swelling Hx of deep venous thrombosis Expected: 05/24/2025 (Approximate), Expires: 05/24/2027documented as of this encounter Visit Diagnoses Diagnosis Leg swelling- Primary Swelling of limb Hx of deep venous thrombosis Chronic heart failure with preserved ejection fraction (HFpEF) (CMS/HCC) Mixed hyperlipidemia documented in this encounter Care Teams Team MemberRelationshipSpecialtyStart DateEnd Date Sergo Syl [address] PCP - Khxnnoq04/12/24 Roscoe Phan MD [address] [place] [address] Referring PhysicianPulmonary Disease09/29/23 Ysabel Gomez CNP [address] [place] [address] Nurse PractitionerGastroenterology09/08/24documented as of this encounter
--- OUTSIDE RECORDS SUMMARY | 2025-05-24 11:06 | XMS_ITS | Clinical Summary ---
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 Name Role Phone Roscoe Phan MD Unavailable Syl Trotter Primary Care Provider [phone] Ysabel Gomez CNP Unavailable Allergies Active AllergyReactionsCriticalityNoted DateCommentsAdhesive Tape-SiliconesHives 06/09/20149405Rdvdorterfz16/09/5089Zktgzsczuzc46/10/2023 Other reaction(s): Nausea And Vomiting, vomiting Daeqrcywdvn02/09/2783Ekcfrphq59/09/2022Nsaids (Non-Steroidal Anti-Inflammatory Drug)Other06/09/2014 kidneys shut down OxytocinAnaphylaxis,QxygoHjbd25/19/2014 Medications MedicationSigDispense QuantityRefillsLast FilledStart DateEnd DateStatus metoprolol succinate XL (Toprol-XL) 25 mg 24 hr tablet Take 25 mg by mouth in the morning. Do not crush or chew.Active cariprazine (Vraylar) 4.5 mg capsule Take 4.5 mg by mouth in the morning.Active hydrOXYzine HCL (Atarax) 50 mg tablet Take 50 mg by mouth if needed.Active albuterol 90 mcg/actuation inhaler INHALE 2 PUFFS BY MOUTH EVERY 4 HOURS IF NEEDED FOR SHORTNESS OF BREATH 05/16/2022ctive lamoTRIgine (LaMICtal) 100 mg tablet Take 1 tablet by mouth in the morning.08/30/2022ctive HYDROmorphone (Dilaudid) 2 mg tablet Pain pumpActive lisinopril 20 mg tablet Take 20 mg by mouth in the morning.11/13/2022ctive Trelegy Ellipta 200-62.5-25 mcg blister with device INHALE 1 PUFF BY MOUTH ONCE DAILY05/15/2023ctive traZODone (Desyrel) 150 mg tablet take 1 tablet by mouth at bedtime if utystm0408/18/2023ctive atorvastatin (Lipitor) 10 mg tablet Indications:Coronary artery disease due to lipid rich plaqueTake 1 tablet (10 mg) by mouth in the morning. 90 tablet ctive metFORMIN XR (Glucophage-XR) 750 mg 24 hr tablet Take 750 mg by mouth daily with evening meal.11/10/2023ctive pantoprazole (ProtoNix) 40 mg EC tablet Take 40 mg by mouth before breakfast.04/09/2024ctive prazosin (Minipress) 1 mg capsule Take 1 mg by mouth at bedtime.04/14/2024ctive multivitamin tablet Take 1 tablet by mouth in the morning.Active dapagliflozin propanediol (Farxiga) 10 mg Indications:Congestive heart failure, unspecified HF chronicity, unspecified heart failure type (CMS/HCC)Take 1 tablet (10 mg) by mouth in the morning. 90 tablet //6Active etanercept (EnbreL SureClick) 50 mg/mL (1 mL) pen injector Indications:Seronegative rheumatoid arthritis (CMS/HCC)Inject 50 mg under the skin every 7 (seven) days. 4 mL 5Active folic acid (Folvite) 1 mg tablet Indications:Seronegative rheumatoid arthritis (CMS/HCC),Methotrexate, termite treater helper, current useTake 1 tablet (1 mg) by mouth in the morning. 90 tablet 5Active methotrexate 2.5 mg tablet Indications:Rheumatoid arthritis with rheumatoid factor, unspecified (CMS/HCC) Take 10 tab PO weekly 40 tablet 605Active pilocarpine (Salagen) 5 mg tablet Indications:Sjogren's syndrome, with unspecified organ involvementTake 2 tabs PO three times a day 180 tablet 5Active naloxone (Narcan) 4 mg/0.1 mL nasal spray Indications:Unilateral primary osteoarthritis, left kneeAdminister 1 spray (4 mg) into affected nostril(s) if needed for opioid reversal. May repeat every 2-3 minutes if needed, alternating nostrils, until medical assistance becomes available. 2 each /ctive Additional Information Patient not taking.Reported on 05/24/2025 lisdexamfetamine (Vyvanse) 30 mg capsule Take 30 mg by mouth in the morning.04/26/2025tive furosemide (Lasix) 40 mg tablet Indications:Leg swelling,Chronic heart failure with preserved ejection fraction (HFpEF) (CMS/HCC)Take 1 tablet (40 mg) by mouth if needed (as needed for increased leg swelling, weight gain, increased shortness of breath). 90 tablet /6Active DULoxetine (Cymbalta) [address] capsule Take 60 mg by mouth in the morning.Discontinued(Med List Cleanup) furosemide (Lasix) 80 mg tablet Take 40 mg by mouth if needed.Discontinued(Reorder) busPIRone (Buspar) 10 mg tablet Take 10 mg by mouth two times daily.Discontinued(Med List Cleanup) apixaban (Eliquis) 5 mg tablet Indications:Deep vein thrombosis (DVT) of non-extremity vein, unspecified chronicityTake 1 tablet (5 mg) by mouth in the morning and at bedtime. 180 tablet Discontinued(Med List Cleanup) clotrimazole-betamethasone (Lotrisone) cream Discontinued(Med List Cleanup) omeprazole (PriLOSEC) [address] capsule Take 1 capsule by mouth in the morning.05/24/2025Discontinued(Med List Cleanup) cephalexin (Keflex) 500 mg capsule Discontinued(Med List Cleanup) hydrOXYzine pamoate (Vistaril) 50 mg capsule Discontinued(Med List Cleanup) tiZANidine (Zanaflex) 4 mg tablet every 8 (eight) hours.05/24/2025Discontinued(Med List Cleanup) sulfamethoxazole-trimethoprim (Bactrim DS) 800-160 mg tablet Discontinued(Med List Cleanup) clotrimazole (Lotrimin) 1 % cream 1 Application every 12 (twelve) hours.Discontinued(Med List Cleanup) promethazine (Phenergan) 25 mg tablet every 12 (twelve) hours.Discontinued(Med List Cleanup) ALPRAZolam (Xanax) 0.5 mg tablet every 12 (twelve) hours.Discontinued(Med List Cleanup) cyclobenzaprine (Flexeril) 10 mg tablet Indications:Unilateral primary osteoarthritis, left kneeTake 1 tablet (10 mg) by mouth if needed at bedtime for muscle spasms for up to 20 days. 20 tablet Discontinued(Med List Cleanup) Active Problems ProblemNoted DateDiagnosed DateDVT (deep venous thrombosis)05/23/2025Unilateral primary osteoarthritis, left knee04/22/2025lpha 1-antitrypsin PiMS phenotype 03/16/2025annabis abuse03/16/2025omplication of surgical ggbydsais85/25/2025 Deep venous thrombosis of peroneal vein03/16/2025Gastroesophageal reflux disease 03/16/2025Iron deficiency fladlu3303/16/2025Long term current use of inhaled tlvucmj4103/16/2025Moderate persistent asthma without umfvwlsdpbnr00/25/2025Morbid bvfnypo4803/16/2025Other secondary pulmonary dwoyusozsyfb60/25/2025hronic diastolic congestive heart dyfdxzw57/10/2023 Assessment & Plan (12/10/2023 3:27 PM EDT): NYHC II- currently appears fairly euvolemic without exacerbation Continue GDMT- She has stopped aldactone r/t peeing so often Recommended pt to continue farxiga, and lasix 40 mg daily and can hold aldactone for now. Diuretic therapy- lasix Monitor daily weights, I&O, fluid restriction 1.5-2L/day, renal function and electrolytes- Sent pt to lab today for BMP Assessment & Plan (08/25/2023 4:08 PM EST): NYHC II Continue GDMT- lasix 40 mg daily, and aldactone-- Diuretic therapy Monitor daily weights, I&O, fluid restriction 1.5-2L/day, renal function and electrolytes- CESARIO (obstructive sleep apnea)/10/2023 Assessment & Plan (12/10/2023 12:53 PM EDT): Managed by pulmonary and Cpap Radiculopathy, lumbar kwlsyz66/OE (dyspnea on exertion) 08/25/2023 Assessment & Plan (12/10/2023 12:52 PM EDT): stable Assessment & Plan (08/25/2023 3:44 PM EST): Order echocardiogram to assess cardiac function, RV size and function, Rt sided pressures, and valvular function Osteoarthritis of both knees07/31/2023Osteoarthritis of both hands07/31/2023 Tobacco smbcejnsae06/09/2024 Assessment & Plan (08/25/2023 4:07 PM EST): Recommended smoking cessation, she is starting chantix for smoking cessation as prescribed from DR Phan Bilateral carpal tunnel gskadgis11/07/2024Methotrexate, chcf, current use 07/29/2023Seronegative rheumatoid mwbcevigv58/07/2024ostoperative visit 05/20/2023S/P endometrial /29/5935Jllwevkhcksh79/10/2023Menorrhagia with irregular cycle03/31/2023N&V (nausea and vomiting)/10/2023 Status post total knee replacement using cement, right09/21/2022nee pain 04/01/2022hronic pain wmpititp86/11/2022Failed back aafowmky81/11/2022 Inflammation of sacroiliac joint04/01/2022rthritis of right knee02/28/2022 Morbid obesity with BMI of 50.0-59.9, adult10/29/2021 Assessment & Plan (12/10/2023 12:52 PM EDT): Obesity is unchanged. F/U with PCP- recommended weight loss Chest pain10/29/20219987Hltwataxpoir32/10/2022 Assessment & Plan (12/10/2023 12:51 PM EDT): Continue statin Assessment & Plan (08/25/2023 3:45 PM EST): Continue lipitor 10 mg daily Urzmgec7410/29/2021Tobacco abuse10/29/20218728Bqnzcmvgpg06/24/2018Congestive heart ypmhlsc9811/12/2017Bipolar II wvaejfua05/21/2017Panic /21/2017Major depressive disorder, recurrent episode, pgkqtycs17/16/2017Acute pain12/14/2013 Lumbar post-laminectomy ytocxldw70/10/2014cquired bagrjanzwhuijajnz49/18/2013 Chronic obstructive lung xamhbra9109/06/2012 Assessment & Plan (12/10/2023 12:51 PM EDT): COPD is unchanged. F/U with Pulmonary- Dr Phan as scheduled Depressive /18/2013enign hypertensive cardiomyopathy with heart plzeqqx5509/06/2012 Assessment & Plan (12/10/2023 3:27 PM EDT): HTN well controlled Continue lisinopril, toprol, Assessment & Plan (08/25/2023 4:06 PM EST): Hypertension is well controlled Continue lisinopril, toprol, aldactone Low back pain09/06/2012Generalized anxiety awyqxkuc97/18/2013Chronic obstructive pulmonary xsaazgd0109/06/2012 Encounters DateTypeDepartmentCare MzfdFdebzykpfli49/03/2025 10:00 AM ESTOffice Visit [facility] [address] [place] [address] Natasha Michaud CNP Leg swelling (Primary Dx); Hx of deep venous thrombosis; Chronic heart failure with preserved ejection fraction (HFpEF) (CMS/HCC); Mixed bttvxzuvncctat06/23/2025 9:00 AM EDTFollow-Up [facility] [address] [place] [address] [place] [phone] Peterson Bhatia MD Unilateral primary osteoarthritis, left knee (Primary Dx)03/23/2025 1:32 PM EDT - 03/23/2025 11:59 PM EDTHospital Encounter [facility] [address] [place] [address] [place] [address] Discharge Disposition: Home or Self Care (01)03/23/2025 1:15 PM EDTOffice Visit [address] [place] [phone] Torsten Marx PA-C Unilateral primary osteoarthritis, left knee (Primary Dx)03/23/2025Orders Only [address] [place] [phone] Torsten Marx PA-C Unilateral primary osteoarthritis, left knee (Primary Dx)03/16/2025 11:30 AM EDT Follow-Up [facility][note 3] Rheumatology [address] [place] [phone] Medina Montes MD Seronegative rheumatoid arthritis (CMS/HCC) (Primary Dx); Methotrexate, termite treater helper, current use; Osteoarthritis of both hands, unspecified osteoarthritis type; Tobacco dependence; Chronic pain of left knee; Sjogren's syndrome, with unspecified organ ocodytdqajq34/22/2025Refill [facility][note 3] Rheumatology [address] [place] [phone] Feli Spencer MA Rheumatoid arthritis with rheumatoid factor, unspecified (CMS/HCC)from Last 3 Months Immunizations ImmunizationAdministration DatesNext DueInfluenza, Seasonal, Quadrivalent, Jztfdvlprp51/13/2023Pneumococcal Polysaccharide KWH583010/08/2021Tdap107/04/2022 Family History Medical HistoryRelationNameCommentsNo Known ProblemsFatherCoronary artery diseaseMotherRelationNameStatusCommentsFatherMothercancer brast ca, ovarian, skin, heart disease Social History Tobacco UseTypesPacks/DayYears UsedDateSmoking Tobacco: Every DayCigarettes Passive Smoke Exposure: CurrentSmokeless Tobacco: NeverAlcohol UseStandard Drinks/WeekCommentsNever0 (1 standard drink = 0.6 oz pure alcohol)[facility] Utilities AnswerDate RecordedIn the past 12 months has the [employer], gas, oil, or water [employer] threatened to shut off services in your [...] were you homeless or living in a mcfp (including now)? No04/13/2025Hunger Vital SignAnswerDate RecordedWithin the past 12 months, you worried that your food would run out before you got the money to buymore.Never true04/13/2025Ran Out of Food in the Last YearNot on file04/13/2025 CommentsUnknownSex and Gender InformationValueDate RecordedSex Assigned at Ljzune4703/16/2025 10:58 AM EDTLegal KmzRpxron42/29/2022 9:58 PM EDTGender AavjwklrIzrfll44/25/2025 10:58 AM EDTSexual OrientationChoose not to disclose 03/16/2025 10:58 AM EDT Last Filed Vital Signs Vital SignReadingTime TakenCommentsBlood Iqenpjea91/6905/24/2025 10:16 AM EST Vlnlr213705/24/2025 10:16 AM SZXCpkzksztjhs92 ??C (98.6 ??F)07/26/2024 9:20 AM EST Respiratory Tqzq6985 9:20 AM ESTOxygen Blacwakvfs58%05/24/2025 10:16 AM ESTInhaled Oxygen Concentration--Ltnare956 kg (262 lb)05/24/2025 10:16 AM EST Adhqvj166.9 cm (5' 1 )05/24/2025 10:16 AM ESTBody Mass Index49. 10:16 AM EST Plan of Treatment DateTypeDepartmentCare Team (Latest Contact Info)Dwddqdnoadh64/18/2025 11:15 AM ESTFollow-Up [facility] Rheumatology [address] [place] [phone] Medina Montes MD [address] [place] [address] Health MaintenanceDue DateLast DoneCommentsCT Vsjwdqhcfarz55/14/1974Colonoscopy 1973FIT1973FOBT1973Medicare Annual Wellness (AWV)1973 Kgyjhmgmkvosj41/14/1974COVID-19 Vaccine (#1)1978Diabetes: Retinopathy Rzsvfqplc59/14/1984Diabetes: Urine Protein Npxlfmvmz87/14/1993Hepatitis B Vaccines (1 of 3 - 19+ 3-dose series)1992HPV/Ichogn7307/05/2003Mammogram 2013Diabetes: Hemoglobin A1C05/09//neumococcal Vaccine: Pediatrics (0 to 5 Years) and At-Risk Patients (6 to 64 Years) (2 of 2 - PCV) /Zoster Vaccines (1 of 2)4Cervical Cancer Screening 10/23/2024Pap Smear10/23//09/2021Influenza Vaccine (#1)2025 3Depression Vtfkgnbxy47/23//5Colorectal Cancer Screening 09/09/2027FIT-DNA09/08/111475/5Adult Wziyhbl90/HIB VaccinesAged OutNo longer eligible based on patient's age to complete this topic HPV VaccinesAged OutNo longer eligible based on patient's age to complete this topicIPV VaccinesAged OutNo longer eligible based on patient's age to complete this topicMeningococcal B VaccineAged OutNo longer eligible based on patient's age to complete this topicMeningococcal VaccineAged OutNo longer eligible based on patient's age to complete this topicRotavirus VaccinesAged OutNo longer eligible based on patient's age to complete this topic Medical Devices ImplantedTypeAreaManufacturerDevice IdentifierShelf Expiration DateModel / Serial / LotPain PumpDeviceHipMeshMeshAbdomen Procedures Procedure NamePriorityDate/TimeAssociated DiagnosisCommentsXR KNEE 3 VIEWS LEFT Pxqgfwm7403/23/2025 1:48 PM EDT Unilateral primary osteoarthritis, left knee CBC WITH AUTO UICULCXZRPFPUlzyott35/25/2025 5:11 PM EDT Methotrexate, termite treater helper, current use CBC AND WMPRLQONKCQXLawkxiy15/25/2025 5:11 PM EDT Methotrexate, chcf, current use COMPREHENSIVE METABOLIC ZSZHIPafzpog04/25/2025 5:09 PM EDT Methotrexate, termite treater helper, current use LAB COLOGUARD?? COLON CANCER HFXXZFFnigvhs68/20/2025 2:50 PM EDT Nausea and vomiting, unspecified vomiting type Encounter for screening for malignant neoplasm of colon HEMOGLOBIN Y2JEhtpulj50/18/2022 12:16 PM EDT from Last 3 Months or Most Recently Relevant to Health Maintenance Results * XR knee 3 views left (03/23/2025 1:48 PM EDT)Anatomical RegionLaterality ModalityLower Extremities, KneeLeftComputed RadiographySpecimen (Source) Anatomical Location / LateralityCollection Method / VolumeCollection Time Received Time03/23/2025 3:23 PM EDT Impressions 03/23/2025 3:31 PM EDT Advanced tricompartmental osteoarthrosis of the left knee with joint space narrowing most pronounced in the medial compartment. Approved by:Huber Lange03/23/2025 3:25 PM. I, Toño Molina,have reviewed the image(s) and agree with the findings in this report. Electronically signed: Toño Molina. Narrative 03/23/2025 3:31 PM EDT XR KNEE 3 VIEWS LEFT 03/23/2025 1:47 PM CLINICAL INDICATIONS: ??Chronic left knee pain COMPARISON: Left knee radiograph 11/21/2021 FINDINGS: No evidence of acute fracture or dislocation. Bulky tricompartmental osteophyte formation. Joint space narrowing and periarticular sclerosis most pronounced in the medial joint compartment. Moderate knee joint effusion. Procedure Note Toño Molina MD - 03/23/2025 XR KNEE 3 VIEWS LEFT 03/23/2025 1:47 PM CLINICAL INDICATIONS: Chronic left knee pain COMPARISON: Left knee radiograph 11/21/2021 FINDINGS: No evidence of acute fracture or dislocation. Bulky tricompartmentalosteophyte formation. Joint space narrowing and periarticular sclerosis mostpronounced in the medial joint compartment. Moderate knee joint effusion. IMPRESSION: Advanced tricompartmental osteoarthrosis of the left knee with jointspace narrowing most pronounced in the medial compartment. Approved by:Huber Lange03/23/2025 3:25 PM. I, Toño Molina,have reviewed the image(s) and agree with the findings inthis report. Electronically signed: Toño Molina. Authorizing ProviderResult TypeResult StatusGregory A Francisco J ETIENNE-[facility]AL HOSPITALPorfirio XR PROCEDURES Final Result * (ABNORMAL) CBC auto differential (03/16/2025 5:11 PM EDT)ComponentValueRef RangeTest MethodAnalysis TimePerformed AtPathologist SignatureAuto WBC7.104.00 - 10.60 10*3/uL03/16/2025 5:30 PM [facility]RBC4.903.80 - 5.00 10*6/uL03/16/2025 5:30 PM [facility]Azyvkzqtmm11.712.0 - 15.0 g/dL03/16/2025 5:30 PM [facility])Gyoaecjuwj15.8(H) 36.0 - 45.0 %03/16/2025 5:30 PM [facility])MCV93.582.0 - 98.0 fL03/16/2025 5:30 PM [facility])MCH30.027.0 - 33.0 pg 03/16/2025 5:30 PM [facility])MCHC32.132.0 - 35.0 g/dL 03/16/2025 5:30 PM [facility])RDW16.1(H)11.5 - 15.0 % 03/16/2025 5:30 PM [facility])Neutrophils %59.240.0 - 72.0 % 03/16/2025 5:30 PM [facility])Lymphocytes %29.020.0 - 45.0 % 03/16/2025 5:30 PM [facility])Monocytes %8.65.0 - 12.0 % 03/16/2025 5:30 PM [facility])Eosinophils %2.40.0 - 6.0 % 03/16/2025 5:30 PM [facility])Basophils %0.70.0 - 1.0 % 03/16/2025 5:30 PM [facility])Neutrophils Absolute4.201.60 - 7.60 10*3/uL03/16/2025 5:30 PM [facility])Lymphocytes Absolute2.061.20 - 4.00 10*3/uL03/16/2025 5:30 PM [facility])Monocytes Absolute0.610.10 - 1.00 10*3/uL03/16/2025 5:30 PM [facility])Eosinophils Absolute0.170.00 - 0.50 10*3/uL03/16/2025 5:30 PM [facility])Basophils Absolute0.050.00 - 0.20 10*3/uL 03/16/2025 5:30 PM [facility])Jbvexwvmd233188 - 400 10*3/uL 03/16/2025 5:30 PM [facility]nRBC %0.00 %03/16/2025 5:30 PM [facility])Immature Granulocytes %0.10.0 - 1.0 %03/16/2025 5:30 PM [facility])Immature Granulocytes Absolute0.010.00 - 0.20 10*3/uL03/16/2025 5:30 PM [facility])Specimen (Source) Anatomical Location / LateralityCollection Method / VolumeCollection Time Received TimeBloodVenous blood specimen / UnknownVenipuncture / Unknown 03/16/2025 5:11 PM EDT03/16/2025 5:11 PM EDT Narrative Authorizing ProviderResult TypeResult StatusMedina SANTANA BLOOD ORDERABLESFinal ResultPerforming OrganizationAddressCity/State/ZIP CodePhone Number [facility] [address] [place] [address] * Comprehensive metabolic panel (03/16/2025 5:09 PM EDT)ComponentValueRef Range Test MethodAnalysis TimePerformed AtPathologist RmslcogeiWniqic739682 - 145 mmol/L03/16/2025 5:34 PM [facility])Potassium4.53.5 - 5.1 mmol/L03/16/2025 5:34 PM [facility])Iygurgfx23710 - 107 mmol/L03/16/2025 5:34 PM [facility]LM89090 - 31 mmol/L 03/16/2025 5:34 PM [facility]Anion Xbp618 - 20 mmol/L 03/16/2025 5:34 PM [facility])NQY340 - 25 mg/dL03/16/2025 5:34 PM [facility])Creatinine0.760.60 - 1.20 mg/dL03/16/2025 5:34 PM [facility]BUN/Creatinine Ratio18.409 5:34 PM [facility])Xbrfduk0215 - 100 mg/dL03/16/2025 5:34 PM EDT [facility])Calcium9.38.6 - 10.3 mg/dL03/16/2025 5:34 PM [facility])OPH0505 - 39 U/L03/16/2025 5:34 PM [facility]ALT (SGPT)147 - 52 U/L03/16/2025 5:34 PM [facility] Alkaline Ogwqzmbwelf6126 - 104 U/L03/16/2025 5:34 PM [facility])Total Protein7.16.0 - 8.3 g/dL03/16/2025 5:34 PM [facility])Albumin4.23.5 - 5.7 g/dL03/16/2025 5:34 PM [facility])Total Bilirubin0.40.3 - 1.0 mg/dL03/16/2025 5:34 PM [facility])eGFR94.8>60.0 mL/min/1.73m* 5:34 PM [facility])Comment:[facility]???s estimated glomerular filtration rate (eGFR) will [...] not disproportionately affect any one group of individuals.Specimen (Source) Anatomical Location / LateralityCollection Method / VolumeCollection Time Received TimeBloodVenous blood specimen / UnknownVenipuncture / Unknown 03/16/2025 5:09 PM EDT03/16/2025 5:09 PM EDT Narrative Authorizing ProviderResult TypeResult StatusMedina SANTANA BLOOD ORDERABLESFinal ResultPerforming OrganizationAddressCity/State/ZIP CodePhone Number [facility] [address] [place] [address] * Cologuard?? colon cancer screening (09/08/2024 2:50 PM EDT)Specimen (Source) Anatomical Location / LateralityCollection Method / VolumeCollection Time Received TimeStool Narrative Authorizing ProviderResult TypeResult StatusRobcarmen GRISSOM [facility] ORDERABLESFinal ResultPerforming OrganizationAddressCity/State/ZIP CodePhone Number [employer] * Hemoglobin A1c (02/06/2022 12:16 PM EDT)ComponentValueRef RangeTest Method Analysis TimePerformed AtPathologist SignatureHemoglobin A1C5.54.0 - 6.0 %LAB CONVERSIONSEstimated Average Mymcdnx239kwqm/LLAB CONVERSIONSSpecimen (Source) Anatomical Location / LateralityCollection Method / VolumeCollection Time Received Time02/06/2022 12:16 PM EDT02/06/2022 12:16 PM EDT Narrative Authorizing ProviderResult TypeResult StatusMaged Jannette SANTANA BLOOD ORDERABLES Final ResultPerforming OrganizationAddressCity/State/ZIP CodePhone Number LAB CONVERSIONS from Last 3 Months or Most Recently Relevant to Health Maintenance Insurance Care Teams Team MemberRelationshipSpecialtyStart DateEnd Date Syl Trotter [address] PCP - Ksjozmr55/12/24 Roscoe Phan MD [address] [place] [address] Referring PhysicianPulmonary Disease09/29/23 Ysabel Gomez CNP [address] [facility] [address] [place] [address] Nurse PractitionerGastroenterology09/08/24
--- OUTSIDE RECORDS SUMMARY | 2025-05-24 11:06 | XMS_ITS | Clinical Summary ---
Author Organization [facility] Healthcare Address [address] [place] [address] Care Team Providers Care Solutions Architect Name Role Phone Bertin Pelaez MD Primary Care Provider [phone] Allergies Active AllergyReactionsCriticalityNoted DateCommentsDoxycyclineHives,Unknown 02/19/2023ulaglutideNausea And Vomiting,GI ovdanledzacPjlr97/31/2023Nsaids Kctkckb9502/19/2023 Pt takes methotrexate and is not able to take NSAIDS AjlubipwYmgdcgl29/09/2023 Other Reaction(s): anaphylactic shock EehwahhooihMlgkcfz86/31/2023 Other Reaction(s): feels like on fire [place] like head was on fire Medications MedicationSigDispense QuantityRefillsLast FilledStart DateEnd DateStatus albuterol HFA 90 mcg/act inhaler every 4 (four) hours.02/11/2023ctive atorvastatin (Lipitor) 10 MG tablet Oral for 30 Days02/03/2023ctive busPIRone (Buspar) 30 MG tablet Take 30 mg by mouth in the morning and 30 mg before bedtime.08/26/2022ctive Vraylar 4.5 MG capsule 1 capsule.11/24/2022ctive DULoxetine (Cymbalta) [address] capsule 1 capsule.11/21/2022ctive Trelegy Ellipta 200-62.5-25 MCG/ACT aerosol powder Inhale 1 puff in the morning.Active furosemide (Lasix) 80 MG tablet 1 (one) time each day at the same time.01/24/2023ctive hydrOXYzine pamoate (Vistaril) 50 MG capsule as directed Orally twice daily NEEDEDActive lamoTRIgine (LaMICtal) 100 MG tablet 1 tablet Orally MORNING for 90 days12/03/2022ctive lisinopril 20 MG tablet 1 (one) time each day at the same time.Active metoprolol succinate XL (Toprol-XL) 50 MG 24 hr tablet 1 (one) time each day at the same time.Active omeprazole (PriLOSEC) [address] capsule take 1 capsule by mouth every morning 30 MINUTES BEFORE MORNING MEAL for 30 02/10/2023ctive tiZANidine (Zanaflex) 4 MG tablet every 8 (eight) hours.07/21/2022ctive traZODone (Desyrel) 150 MG tablet 1 (one) time each day at the same time.Active methotrexate 2.5 MG tablet Take 2.5 mg by mouth 1 (one) time per week.07/30/2023ctive Active Problems ProblemNoted DateDiagnosed DatePostoperative visit05/20/2023S/P endometrial sztgzomr75/29/2023Menorrhagia with irregular cycle03/31/2023ysmenorrhea 03/31/2023 Encounters DateTypeDepartmentCare JkolUsvelwcogeq36/02/2025 9:10 AM EDTOffice Visit [facility] [address] [facility] [address] [place] [id number] Lacho Fox DPM Tinea pedis of both feet (Primary Dx); Diabetes mellitus due to underlying condition with diabetic polyneuropathy, without long-term current use of insulin (HCC); Pain due to onychomycosis of toenails of both feet03/23/2025amboo flowsheet [facility] [address] [facility] [address] [place] [address] Lacho Fox DPM 03/23/2025Travelfrom Last 3 Months Family History Medical HistoryRelationNameCommentsArthritisMotherCancerMotherDiabetesMother Heart diseaseMotherHypertensionMotherRelationNameStatusCommentsFatherAliveMother Alive Social History Tobacco UseTypesPacks/DayYears UsedDateSmoking Tobacco: Every DayCigarettes Tobacco Cessation:Ready to Q uit: Not Asked; Counseling Given: Yes CommentsNoSex and Gender InformationValueDate RecordedSex Assigned at BirthNot on fileLegal NdpNrsxet90/15/2023 6:39 PM EDTGender IdentityNot on file Sexual OrientationNot on file Last Filed Vital Signs Vital SignReadingTime TakenCommentsBlood Okdenkto672/7003 1:26 PM EST Pulse--Temperature--Respiratory Hrqs7130 9:04 AM EDTOxygen Saturation-- Inhaled Oxygen Concentration--Byzfyw592 kg (265 lb)03/23/2025 9:04 AM EDTHeight 154.9 cm (5' 1 )03/23/2025 9:04 AM EDTBody Mass Index50.0703/23/2025 9:04 AM EDT Plan of Treatment DateTypeDepartmentCare Team (Latest Contact Info)Ytfenxxeqvs84/19/2025 2:00 PM ESTOffice Visit [facility] [address] [place] [id number] Lacho Fox DPM [address] [address] Insurance Care Teams Team MemberRelationshipSpecialtyStart DateEnd Date Bertin Pelaez MD [address] [place] [address] PCP - GeneralPhysician Assistant08/17/24
--- OUTSIDE RECORDS SUMMARY | 2025-05-24 11:10 | XMS_ITS | CCD ---
Author Organization [facility] Care Team Providers Care Chemistry Tutor Name Role Phone Unavailable Primary Care Provider Unavailabl e Alexander Nix MD, Formerly [facility] Primary Care Provider KULWANT ARENAS Referring Unavailable Jannette, Peterson Admitting Unavailable Jannette, Peterson Attending Unavailable ROSA CM Referring Unavailable ROSA, CM Primary Care Unavailable Jannette, Peterson Admitting Unavailable Jannette, Peterson Attending Unavailable SELF, REFERRED Referring Unavailable MARY LEEEL Primary Care Unavailable Jannette, Peterson Admitting Unavailable Jannette, Peterson Attending Unavailable MARY LEEEL Referring Unavailable CM LEE Primary Care Unavailable SHAMMO, DONNIE Referring Unavailable NILLRick Attending Unavailable NILLRick Attending Unavailable Mingo Thapa Primary Care Provider SHAMMO, DONNIE Admitting Unavailable SHAMMO, DONNIE Attending Unavailable SHAMMO, DONNIE Primary Care Unavailable AGUSTIN ADAMSON Consulting Unavailable SHAMMO, DONNIE Consulting Unavailable SHAMMO, DONNIE Admitting Unavailable SHAMMO, DONNIE Attending Unavailable SHAMMO, DONNIE Primary Care Unavailable SHAMMO, DONNIE Consulting Unavailable SHAMMO, DONNIE Primary Care Unavailable REQUEST, NONE LISTED Consulting Unavaila ble REQUEST, NONE LISTED Attending Unavaila ble REQUEST, DR PIZANO [...] Attending Unavailable SHAMMO, DONNIE Admitting Unavailable Shammo ORGANIC CHEMIST - AIR BOX TESTER, [facility] Primary Care Provi orly MOHIT DEJESUS Admitting Unavailable WMMOHIT N Attending Unavailable SHAMMO, DONNIEMETHODIST [facility] Primary Care Unavailable WM MOHIT N Referring Unavailable SHAMMO, DONNIEMETHODIST [facility] Primary Care Unavailable Franklin, Kayla Unavailable REZA MENDEZ Attending Unavailable ADELAIDA SUBRAMANIAN Attending Unavailable Ovitt, SARA Roblero Attending Unavailable Unavailable Primary Care Provider UnavailYanet Nix MD, Wally Primary Care Provider DECLAN SAMUEL Referring Unavailable ALEXANDER NIX WALLY Primary Care Unavailjim Pelaez MD Bertin Primary Care Provider LACHO ALVES Attending Unavailable LACHO ALVES Attending Unavailable LACHO ALVES Attending Unavailable Bertin Pelaez MD Primary Care Provider MEDINA MONTES Attending Unavailable PETERSON BHATIA Attending Unavailable JOHN VILLAGOMEZ Attending Unavailable DECLAN SAMUEL Referring Unavailable HAILE NAJERA Attending Unavailable MEDINA MONTES Attending Unavailable MARCIAL PA Attending Unavailable MEDINA MONTES Attending Unavailable ALEXANDRIA WORTHINGTON Attending Unavailable NALLELY MANCINI Referring Unavailable JOHN VILLAGOMEZ Referring Unavailable MEDINA MONTES Attending Unavailable ELTRAM PATEL B Referring Unavailable KHORSAND ZULAY, WALLY Primary Care Unavailabl e ARABELLA HUFFMAN Attending Unavailable KHORSAND ZULAY, WALLY Referring Unavailabl e KHORSHUNTER ZULAY, WALLY Primary Care Unavailabl e Alexander Nix MD, Former[facility] Primary Care Provider Allergies Allergy ClassificationReported Allergen(s)Allergy TypeDate of OnsetReaction(s) Facility (19 sources)Doxycycline; Translations: [DOXYCYCLINE]Drug Biazzvp40-00-5080Uncbh, [facility] [employer] (12 sources)Oxytocin; Translations: [OXYTOCIN]Drug Traaqra06-87-8189Ryosixwxrlu [facility] [employer] Work Phone: (20 sources)SUMAtriptan; Translations: [SUMATRIPTAN]Drug Nmzkxyg75-28-6527Dcprt (See Comments), [employer] Work Phone: (1 source)DesonideDrug Vmdbmqf75-56-6123PniOhio[facility] (3 sources)DoxycyclineDrug Uaeblqg85-12-9132MusOhioHealth Dublin [facility] Hospital Repository (4 sources)Morphine; Translations: [MORPHINE]Drug Szunust39-39-2005EjdOhioHealth Dublin [facility] Hospital Repository (7 sources)NSAIDs; Translations: [NSAIDS (NON-STEROIDAL ANTI-INFLAMMATORY DRUG)] Drug allergy (disorder)97-06-7014Ieb [facility] Repository (2 sources)OxytocinDrug Qncbeat75-73-1684NzlnnkhAtlThe [facility] Repository (4 sources)PlasminDrug Bdfxktt55-41-7245VtaofuhLjhKettering Health Miamisburg Repository (7 sources)Doxycycline; Translations: [DOXYCYCLINE HCL]Drug Vrphtey00-66-4154 [facility]Pe[facility] (4 sources)Non-steroidal anti-inflammatory agentDrug Lwoairp63-84-6928Pzmkd: See CommentsClecincinnati children's hospital medical center Clinic (7 sources)SUMAtriptan; Translations: [SUMATRIPTAN SUCCINATE]Drug Allergy 85-03-4941Ildye: See CommentsPeoples Hospital (2 sources)OxytocinDrug Xytakqo28-65-2957Ogk [facility] Repository (9 sources)dulaglutide; Translations: [DULAGLUTIDE]Drug Wkistsm01-59-2981Ayxmsu And VomitingBON SHASTA REGIONAL MEDICAL CENTERSpotlight.fm (1 source)dulaglutideDrug AllergyvomitMissouri Southern Healthcare Yesmywine Other (12 sources)dulaglutideDrug Mxtzqdd53-39-0829Smrutk And Vomiting, GI intolerance [facility] (13 sources)Non-steroidal anti-inflammatory agentDrug Pafaqkr72-08-4286Etpmjls [facility] (12 sources)OxytocinDrug Ncccixp66-83-3681KsuagpwMXIG Healthcare (1 source)ADHESIVE TAPE-SILICONES; Translations: [ADHESIVE TAPE-SILICONES] Propensity to adverse reactions to drug (disorder)56-90-8866UwzfidlqjrLakeHealth [facility] Repository Medications Current Medications MedicationDrug Class(es)DatesSig (Normalized)Sig (Original)[id number] 200 actuat albuterol 0.09 mg/actuat metered dose inhaler (17 sources)beta2-Adrenergic AgonistStart: 96-93-3976Vkbkzlizp Sulfate Active INHALATION January 14, 2024 12:00amStart: 65-31-5278scpxvzjcq HFA 90 mcg/act inhaler every 4 (four) hours. 02/11/2023 ActiveStart: 24-95-6496utxx 2 puff(s) by mouth every four hoursalbuterol HFA (PROVENTIL HFA, VENTOLIN HFA) 90 mcg/actuation inhaler INHALE 2 PUFFS BY MOUTH EVERY 4 HOURS IF NEEDED FOR SHORTNESS OF BREATH 0 05/16/2022 ActiveStart: 61-02-6770goel 2 puff(s) by mouth every four hours as neededalbuterol sulfate HFA 108 (90 Base) MCG/ACT inhaler INHALE 2 PUFFS BY MOUTH EVERY 4 HOURS NEEDED0 08/09/2021 ActiveComment on above:INHALE 2 PUFFS BY MOUTH EVERY 4 HOURS IF NEEDED FOR SHORTNESS OF BREATH amoxicillin 875 mg / clavulanate 125 mg oral tablet (1 source)Penicillin-class AntibacterialStart: 29-27-9871fpkl 1 tablet by mouth every twelve hoursAmoxicillin-Pot Clavulanate Active 1 TAB PO Every 12 hours 10 04April 14, 2024 12:00amapixaban 5 mg oral tablet (2 sources)Factor Xa InhibitorStart: 99-60-1594Qfywymmw (Eliquis) 5 mg tablet Active 5 MG PO January 14, 2024 12:00amatorvastatin 10 mg oral tablet (16 sources)HMG-CoA Reductase InhibitorStart: 12-33-2949jbyd 1 tablet by mouth in the morningatorvastatin (LIPITOR) 10 mg tablet Indications: Tobacco abuse , Dyslipidemia Take 1 tablet (10 mg total) by mouth in the morning. 90 tablet 2 05/20/2022 Activebetamethasone 0.5 mg/ml / clotrimazole 10 mg/ml topical cream (5 sources)Azole Antifungal, CorticosteroidStart: 07-21-2024 End: 10-32-3595zpiyixvokyjp-betamethasone (Lotrisone) cream Indications: Tinea pedis of both feet Apply 1 application topically in the morning and 1 application before bedtime. 45 g 1 07/21/2024 08/20/2024 ActivebusPIRone hydrochloride 10 mg oral tablet (18 sources)Start: 25-27-8918Isrqfyhkn Active 10 MG PO January 14, 2024 12:00am Start: 24-54-6758ytdj 1 tablet by mouth in the morningbusPIRone (Buspar) 30 MG tablet Take 30 mg by mouth in the morning and 30 mg before bedtime. 08/26/2022 ActiveStart: 80-64-6998laln 1 tablet by mouth twice dailybusPIRone (BUSPAR) 15 MG tablet take 1 tablet by mouth twice a day 0 10/15/2021 ActiveComment on above:Take 15 mg by mouth twice daily.calcium chloride 0.0014 meq/ml / potassium chloride 0.004 meq/ml / sodium chloride 0.103 meq/ml / sodium lactate 0.028 meq/ml injectable solution (1 source)Start: 43-62-5876egixqjrb ringers IV soln infusioncariprazine 4.5 mg oral capsule (20 sources)Atypical AntipsychoticStart: 87-64-2644Kqgeocq 4.5 MG capsule 1 capsule. 11/24/2022 ActiveStart: 10-19-2514iupv 1 capsule by mouth once daily VRAYLAR 3 MG CAPS capsule take 1 capsule by mouth by mouth once daily 0 10/16/2021 Activetake 4.5 mg by mouth in the morningcariprazine (VRAYLAR) 3 mg capsule Take 4.5 mg by mouth in the morning. ActiveVraylar Activetake 1 capsule by mouth once dailycariprazine (VRAYLAR) 4.5 mg capsule Take 4.5 mg by mouth once daily. 0 ActiveComment on above:Take 4.5 mg by mouth once daily.cephalexin 500 mg oral capsule (6 sources)Cephalosporin AntibacterialStart: 07-21-2024 End: 46-34-1910qjsq 1 capsule by mouth in the morning, then take 1 capsule by mouth in the evening, then take 1 capsule by mouth at bedtime, then take 1 capsule by mouth three times dailycephalexin (Keflex) 500 MG capsule Indications: Abscess, toe, left Take 1 capsule (500 mg) by mouthin the morning and 1 capsule (500 mg) in the evening and 1 capsule (500 mg) before bedtime. Do all this for 10 days. Take one tablet by mouth three times daily. 30 capsule 07/21/2024 07/31/2024 ActiveStart: 20-27-9375vtrp 1 capsule by mouth every six hoursCephalexin 500 MG 1 capsule Orally Four times a day for 10 days May, Activecyclobenzaprine hydrochloride 10 mg oral tablet (1 source)Muscle Relaxanttake 1 tablet by mouth every eight hoursCyclobenzaprine HCl 10 MG 1 tablet as needed Orally Three times a day Activedapagliflozin 10 mg oral tablet (1 source)Sodium-Glucose Cotransporter 2 InhibitorStart: 12-12-2024 End: 66-35-6668ztwb 1 tablet by mouth in the morningdapagliflozin propanediol (FARXIGA) 10 mg tablet Take 1 tablet (10 mg total) by mouth in the morning. 12/12/2024 12/12/2025 ActiveDilaudid-HP (1 source)Dilaudid-HP ActiveDULoxetine 20 mg delayed release oral capsule (20 sources)Serotonin and Norepinephrine Reuptake InhibitorStart: 14-23-0850yqys 1 capsule by mouth twice dailyDuloxetine (Cymbalta) 20 mg capsule,delayed release(DR/EC) Active 1 CAP PO Twice daily January 14, 2024 12:00am FreeTextSi capsule Orally Twice a day; Note: Source Status: Taking; Provider: Franklin Garza ( )Start: 99-80-1777ZHYyfgfpjn (Cymbalta) [address] capsule 1 capsule. 11/21/2022 Activetake 1 capsule by mouth every twelve hoursCymbalta 20 MG 1 capsule Orally Twice a day Activetake 2 capsules by mouth once daily in the morningDULoxetine (CYMBALTA) 60 mg capsule Take 60 mg by mouth once daily. Taking two capsules (120mg) po every am 0 ActiveComment on above:Take 60 mg by mouth once daily. Taking two capsules (120mg) po every am1 ml etanercept 50 mg/ml auto-injector (1 source)Tumor Necrosis Factor BlockerEnbreL SureClick 50 mg/mL (1 mL) pen injector inject 1 pen (50mg) UNDER THE SKIN every 7 DAYS Active2 ml fentaNYL 0.05 mg/ml injection (2 sources)Opioid AgonistStart: 41-74-6861msgrhUAC (SUBLIMAZE) injection 50 mcg Start: 96-64-1395gydgdJDR (SUBLIMAZE) injection 25 mcg qekhdkwhbja-vshgntcqq-kbvbqhtd (TRELEGY ELLIPTA) 200-62.5-25 mcg blister with device (1 source)take 1 puff(s) by inhalation in the morning rzpkbgkakgl-rbchkzuwl-flqbmuwr (TRELEGY ELLIPTA) 200-62.5-25 mcg blister with device Inhale 1 puff in the morning. Activefolic acid 1 mg oral tablet (6 sources)Start: 66-91-6171iubz 1 tablet by mouth in the morningfolic acid (FOLVITE) 1 mg tablet Take 1 tablet (1 mg total) by mouth in the morning. 01/12/2025 ActiveStart: 96-94-3897ujam 1 tablet by mouth once dailyFolic Acid Active 1 TAB PO Daily January 14, 2024 12:00am FreeTextSi tablet Orally Once a day; Note: Source Status: Taking; Provider: Franklin Garza ( )take 1 tablet by mouth every twenty-four hoursFolic Acid 1 MG 1 tablet Orally Once a day ActiveFolic Acid 20 mg cap Take by mouth once daily. 0 ActiveComment on above:Take by mouth once daily.furosemide 80 mg oral tablet (18 sources)Loop DiureticStart: 59-21-4469nsrzubwryp (Lasix) 80 MG tablet 1 (one) time each day at the same time. 01/24/2023 ActiveStart: 28-70-4927cgqd 1 tablet by mouth twice dailyfurosemide (LASIX) 40 MG tablet take 1 tablet by mouth twice a day if needed for SWELLING 0 09/04/2021 Activetake 1 tablet by mouth once dailyfurosemide (LASIX) 20 mg tablet Take 20 mg by mouth once daily. 0 ActiveComment on above:Take 20 mg by mouth once daily.HYDROmorphone hydrochloride 2 mg oral tablet (3 sources)Opioid AgonistHYDROmorphone (DILAUDID) 2 mg tablet by other route. ActiveHYDROMORPHONE HCL (DILAUDID [facility]) Implanted pain pump placed 07/10/16 0.04 infused q4hr (pt thinks) 0 ActiveComment on above:Implanted pain pump placed 07/10/16 0.04 infused q4hr (pt thinks)hydrOXYzine hydrochloride 50 mg oral tablet (14 sources)AntihistaminehydrOXYzine (ATARAX) 50 mg tablet Take 1 tablet (50 mg total) by mouth. ActivehydrOXYzine pamoate (Vistaril) 50 MG capsule as directed Orally twice daily NEEDED ActiveComment on above:Take 50 mg by mouth twice daily.lamoTRIgine 100 mg oral tablet (17 sources)Mood Stabilizer, Anti-epileptic AgentStart: 50-96-4804ipulCUVydeq (LaMICtal) 100 MG tablet 1 tablet Orally MORNING for 90 days 12/03/2022 Active take 1 tablet by mouth in the morninglamoTRIgine (LaMICtal) 25 mg tablet Take 1 tablet (25 mg total) by mouth in the morning. ActiveComment on above:Take 25 mg by mouth once daily.10 ml lidocaine hydrochloride 10 mg/ml injection (1 source)Antiarrhythmic, Amide Local AnestheticStart: 03-06-2023 End: 83-00-0403soxnlboda PF 1 % injection 1 mLlisdexamfetamine dimesylate 30 mg oral capsule (1 source)Central Nervous System StimulantStart: 52-97-5499uaxfqhrjlrcykozw (VYVANSE) 30 mg capsule 04/26/2025 Activelisinopril 20 mg oral tablet (14 sources)Angiotensin Converting Enzyme InhibitorlisinopriL (PRINIVIL,ZESTRIL) 20 mg tablet Take by mouth daily. ActiveLisinopril ActivemetFORMIN (3 sources)BiguanideStart: 67-53-6314Gtwauvxhb Active MG PO January 14, 2024 12:00amtake 1 tablet by mouth once dailymetFORMIN XR (GLUCOPHAGE XR) 750 mg 24 hr tablet Take by mouth daily. Activemethotrexate 2.5 mg oral tablet (15 sources)Folate Analog Metabolic InhibitorStart: 01-14-2024 End: 28-96-9505cztu 5 mg by mouth every weekMethotrexate Sodium Discontinued 5 MG PO every week January 14, 2024 12:00am April 14, 2024 12:08pmStart: 06-95-5207lonwgwqxmbqn 2.5 mg chemo tablet Take 10 tab PO weekly 03/13/2025 ActiveMethotrexate Sodium 5 MG as directed Orally Hsnpnf68 hr metoprolol succinate 25 mg extended release oral tablet (17 sources)beta-Adrenergic BlockerStart: 83-62-0360lkzv 1 tablet by mouth once dailymetoprolol succinate (TOPROL XL) 25 MG extended release tablet take 1 tablet by mouth once daily 0 09/04/2021 Activetake 1 tablet by mouth every twenty-four hours in the morningmetoprolol succinate XL (TOPROL XL) 25 mg 24 hr tablet Take 1 tablet (25 mg total) by mouth in the morning. Activemetoprolol succinate XL (Toprol-XL) 50 MG 24 hr tablet 1 (one) time each day at the same time. Activetake 25 mg by mouth once dailyMETOPROLOL SUCCINATE ORAL Take 25 mg by mouth once daily. 0 ActiveComment on above:Take 25 mg by mouth once daily. multivitamin (THERAGRAN) tablet (1 source)take 1 tablet by mouth in the morningmultivitamin (THERAGRAN) tablet Take 1 tablet by mouth in the morning. Activeomeprazole 20 mg delayed release oral capsule (14 sources)Proton Pump InhibitorStart: 02-10-2023 End: 09-35-0403hjrj 1 capsule by mouth once daily at breakfastomeprazole (PriLOSEC) [address] capsule take 1 capsule by mouth every morning 30 MINUTES BEFORE MORNING MEAL for 30 02/10/2023 Active2 ml ondansetron 2 mg/ml injection (1 source)Serotonin-3 Receptor AntagonistStart: 03-05-2023 End: 07-31-6446ugnjdgvjbwh (ZOFRAN) injection 4 mgoxyCODONE hydrochloride 5 mg oral tablet (1 source)Opioid AgonistStart: 03-05-2023 End: 17-80-2735pimXDHBCU (ROXICODONE) immediate release tablet 5 mgpantoprazole 40 mg delayed release oral tablet (2 sources)Proton Pump InhibitorStart: 80-35-3104lfxgfhlpekst (PROTONIX) 40 mg EC tablet 02/13/2025 ActiveStart: 12-79-4267cxpp 40 mg by mouth once daily Pantoprazole Active 40 MG PO Daily April 14, 2024 12:00ampilocarpine hydrochloride 7.5 mg oral tablet (1 source)Cholinergic Receptor AgonistStart: 09-65-8920tqpywfbtjse (SALAGEN) 7.5 MG tablet 02/22/2025 Activeprazosin 1 mg oral capsule (5 sources)alpha-Adrenergic BlockerStart: 38-84-8283hmeb 1 mg by mouth once dailyPrazosin Active 1 MG PO Daily April 14, 2024 12:00amPrazosin HCl Active Comment on above:Take 1 mg by mouth daily at bedtime.5 ml sodium chloride 9 mg/ml injection (4 sources)Start: 88-42-4004bmunqz chloride flush 0.9 % injection 5-40 mLStart: .9 % sodium chloride infusionStart: 35-35-9540mcleek chloride flush 0.9 % injection 5-40 mLspironolactone 25 mg oral tablet (4 sources)Aldosterone AntagonistStart: 61-62-6205hieh 0.5 tablet by mouth once dailyspironolactone (ALDACTONE) 25 MG tablet take 1/2 tablet by mouth once daily 0 09/04/2021 Activetake 1 tablet by mouth in the morningspironolactone (ALDACTONE) 25 mg tablet Take 1 tablet (25 mg total) by mouth in the morning. 0 ActiveComment on above:Take 25 mg by mouth once daily.tiZANidine 4 mg oral tablet (12 sources)Central alpha-2 Adrenergic AgonistStart: 50-41-8378dlPCLvsnvj (Zanaflex) 4 MG tablet every 8 (eight) hours. 07/21/2022 ActivetraZODone hydrochloride 150 mg oral tablet (15 sources)Serotonin Reuptake InhibitorStart: 14-45-5524Dbdvwkbil Active 150 MG PO January 14, 2024 12:00amtake 1 tablet by mouth twice daily at bedtimetraZODone (DESYREL) 150 mg tablet Take 150 mg by mouth in the morning and at bedtime. TAKE 1 TABLETBY ORAL ROUTE 2 TIMES EVERY DAY ActiveTrelegy Ellipta 200-62.5-25 MCG/ACT aerosol powder (12 sources)take 1 puff(s) by inhalation in the morningTrelegy Ellipta 200-62.5-25 MCG/ACT aerosol powder Inhale 1 puff in the morning. Active Completed/Discontinued Medications MedicationDrug Class(es)DatesSig (Normalized)Sig (Original)acetaminophen 325 mg oral tablet (1 source)take 2 tablets by mouth every six hours as neededacetaminophen (TYLENOL) 325 mg tablet Take 650 mg by mouth every 6 hours as needed. 0 Active Comment on above:Take 650 mg by mouth every 6 hours as needed.amitriptyline hydrochloride 25 mg oral tablet (2 sources)Tricyclic Antidepressanttake 1 tablet by mouth once daily at bedtime amitriptyline (ELAVIL) 25 mg tablet Take 25 mg by mouth daily at bedtime. For insomnia 0 ActiveComment on above:Take 25 mg by mouth daily at bedtime. For insomniaamphetamine aspartate 5 mg / amphetamine sulfate 5 mg / dextroamphetamine saccharate 5 mg / dextroamphetamine sulfate 5 mg oral tablet (2 sources)Central Nervous System StimulantStart: 87-19-9693rhpe 1 tablet by mouth once dailydextroamphetamine-amphetamine (ADDERALL) 20 mg tablet Take 1 tablet by mouth once daily. 0 02/19/2017 ActiveComment on above:Take 1 tablet by mouth once daily.brexpiprazole 2 mg oral tablet (3 sources)Atypical AntipsychoticRexulti 2mg 2mg Oral Not-Taking/PRNComment on above:Take by mouth once daily. For mental healthcapsaicin 0.75 mg/ml topical cream (1 source)capsaicin (ZOSTRIX-HP) 0.075 % topical cream Apply 1 application to affected area three times daily. 0 ActiveComment on above:Apply 1 application to affected area three times daily.capsaicin 0.947492 mg/mg / lidocaine 0.045 mg/mg / menthol 0.1 mg/mg / methyl salicylate 0.275 mg/mg topical ointment (2 sources)Antiarrhythmic, Amide Local Anestheticlidocain-me.ruuzhlb-yotg-dmyno 4.5 %-27.5 %- 0.0325 %-10 % oint Apply to affected area. To bilat knees daily 0 ActiveComment on above:Apply to affected area. To bilat knees dailydiazePAM 5 mg oral tablet (2 sources)BenzodiazepineStart: 24-78-5216zemaeAKB (VALIUM) 5 mg tablet Take 1 tablet by mouth as needed. 30 tablet 0 02/19/2017 ActiveComment on above:Take 1 tablet by mouth as needed.diclofenac sodium 75 mg extended release oral tablet (1 source)Nonsteroidal Anti-inflammatory Drugtake 75 mg by mouth twice daily DICLOFENAC SODIUM ORAL Take 75 mg by mouth twice daily. 0 ActiveComment on above:Take 75 mg by mouth twice daily.Fish Oils (1 source)take 1 capsule by mouth once daily as neededFish Oil 1000 MG 1 capsule Orally Once a day Not-Taking/PRNFLUoxetine 40 mg oral capsule (3 sources)Serotonin Reuptake Inhibitortake 1 capsule by mouth every twenty-four hoursPROzac 40 MG 1 capsule Orally Once a day 80 mg Not-Taking/PRNtake 1 capsule by mouth once daily, then take 4 capsules by mouth once dailyFLUoxetine (PROZAC) 20 mg capsule Take 20 mg by mouth once daily. Taking 80mg po daily 0 Active Comment on above:Take 20 mg by mouth once daily. Taking 80mg po daily30 actuat fluticasone furoate 0.1 mg/actuat / umeclidinium 0.0625 mg/actuat / vilanterol 0.025 mg/actuat dry powder inhaler (1 source)Anticholinergic, Corticosteroid, beta2-Adrenergic AgonistStart: 25-00-4434sjzd 1 puff(s) by mouth once dailyTRELEGY ELLIPTA 100-62.5-25 mcg inhalation powder INHALE 1 PUFF BY MOUTH ONCE DAILY - - RINSE MOUTHAFTER USE 0 04/16/2022 ActiveComment on above:INHALE 1 PUFF BY MOUTH ONCE DAILY - - RINSE MOUTH AFTER USEgabapentin 600 mg oral tablet (3 sources)Anti-epileptic Agenttake 1 tablet by mouth every eight hours Gabapentin 600 MG 1 tablet Orally Three times a day Not-Taking/PRNtake 1 tablet by mouth twice daily, then take 2 tablets by mouth once daily in the morning gabapentin (NEURONTIN) 600 mg tablet Take 600 mg by mouth twice daily. Taking 1200mg po qam and pm 0 ActiveComment on above:Take 600 mg by mouth twice daily. Taking 1200mg po qam and pmlinseed oil 1000 mg oral capsule (1 source)Flax Seed Oil 1000 MG Orally Not-Taking/PRN30 actuat umeclidinium 0.0625 mg/actuat / vilanterol 0.025 mg/actuat dry powder inhaler (2 sources)Anticholinergic, beta2-Adrenergic Agonistumeclidinium-vilanterol (ANORO ELLIPTA) 62.5-25 mcg/actuation inhaler Inhale 1 Inhalation as instructed once daily. One puff daily 0 ActiveComment on above:Inhale 1 Inhalation as instructed once daily. One puff dailyvitamin b12 5 mg sublingual tablet (2 sources)Vitamin Y98yonsbobqoyvakl, vitamin B-12, 5,000 mcg subl Dissolve under the tongue once daily. 0 ActiveComment on above:Dissolve under the tongue once daily. Problems Active Problems Problem ClassificationProblemDateDocumented DateEpisodic/ChronicAnxiety disorders (2 sources)Panic disorder; Translations: [Panic disorder [episodic paroxysmal anxiety]]Onset: [id number] (1 source)Asthma; Translations: [Unspecified asthma, uncomplicated]05-02-2025 ChronicChronic obstructive pulmonary disease and bronchiectasis (6 sources)Chronic obstructive pulmonary disease, unspecified; Translations: [Chronic obstructive lung disease]Onset: 75-54-3456ZhwffeyDpszhwrtnp heart failure; nonhypertensive (1 source)Heart failure, unspecified; Translations: [Heart failure, unspecified] Onset: 98-33-1115FkugyubJxhdrjar mellitus with complications (6 sources)Polyneuropathy due to diabetes mellitus; Translations: [Diabetes mellitus due to underlying condition with diabetic polyneuropathy]07-21-2024 ChronicDiabetes mellitus without complication (1 source)Prediabetes; Translations: [PREDIABETES]Onset: 71-23-2498Wsjyseaz Disorders of lipid metabolism (2 sources)Dyslipidemia; Translations: [Hyperlipidemia, unspecified]Onset: [id number] disorders (2 sources)Gastro-esophageal reflux disease without esophagitis; Translations: [Gastro-esophageal reflux disease without esophagitis]Onset: 85-76-5617Txjkowj Menstrual disorders (20 sources)Irregular periods; Translations: [Irregular menstruation, unspecified]Onset: 52-96-5928LblurohQrwt disorders (4 sources)Recurrent major depressive episodes, moderate ; Translations: [Major depressive disorder, recurrent, moderate]Onset: 501023-36-0775Ekzvoju Mycoses (10 sources)Pain in toe; Translations: [Tinea unguium]50-35-8378Wpxuoybu Nonmalignant breast conditions (1 source)Diffuse cystic mastopathy of right breast; Translations: [DIFFUSE CYSTIC MASTOPATHY RT BREAST]Onset: 94-44-1878AsfcylkSjzfizyfhuzqtd (13 sources)Unilateral primary osteoarthritis, right knee; Translations: [Bilateral primary osteoarthritis of knee]Onset: 76-19-1732WztkzaqKlyfe connective tissue disease (3 sources)Other specified soft tissue disorders; Translations: [OTHER SPEC SOFT TISSUE DISORDERS]Onset: 09-41-6234JstpomotJietu diseases of veins and lymphatics (4 sources)Venous insufficiency (chronic) (peripheral); Translations: [VENOUS INSUFF CHRONIC PERIPHERAL]Onset: 43-51-5777XjsvszjpXxaya hematologic conditions (1 source)Elevated erythrocyte sedimentation rate; Translations: [ELEVATED ERYTHROCYTE SED RATE]Onset: 13-83-2663NduqgqyqSplxg nervous system disorders (3 sources)Other chronic pain; Translations: [OTHER CHRONIC PAIN]Onset: 57-44-2450VuevbnsNmokd nervous system disorders (2 sources)Carpal tunnel syndrome, bilateral upper limbs; Translations: [Carpal tunnel syndrome, bilateral upper limbs]Onset: 28-44-8395RgmwzmeEykid non- traumatic joint disorders (4 sources)Pain in right knee; Translations: [PAIN IN RIGHT KNEE]Onset: 12-60-8093CzleyvfeDmdzo non-traumatic joint disorders (1 source)Effusion, right knee; Translations: [EFFUSION, RIGHT KNEE]Onset: 09-50-2353CqznodonUhwgl non-traumatic joint disorders (4 sources)Pain in unspecified joint; Translations: [PAIN IN UNSPECIFIED JOINT] Onset: 41-15-5177UfyjeseoLxhwp nutritional; endocrine; and metabolic disorders (1 source)Body mass index (BMI) 40.0-44.9, adult; Translations: [BODY MASS INDEX BMI 40.0-44.9 ADULT]Onset: 73-01-3318QmgwssfAnglu nutritional; endocrine; and metabolic disorders (2 sources)Body mass index 40+ - severely obese; Translations: [Body mass index (BMI) 40.0-44.9, adult]Onset: 083337-94-4442VbxbbiaQivco skin disorders (4 sources)Localized swelling, mass and lump, right lower limb; Translations: [LOC SWELL MASS LUMP RT LOWER LIMB]Onset: 57-43-5733NxvopraaGeblxqkrz; thrombophlebitis and thromboembolism (1 source)Deep venous thrombosis; Translations: [Acute embolism and thrombosis of unspecified deep veins of unspecified lower extremity]16-45-6750Rjoovvdo Residual codes; unclassified (1 source)Obstructive sleep apnea (adult) (pediatric); Translations: [Obstructive sleep apnea (adult) (pediatric)]Onset: 47-90-6471HhoqejlHcccwwzg codes; unclassified (1 source)Sleep apneaOnset: 45-20-7490FzonjhgYvtjxfdanv arthritis and related disease (5 sources)Rheumatoid arthritis without rheumatoid factor, unspecified site; Translations: [Rheumatoid arthritis with rheumatoid factor, unspecified]Onset: 61-17-5963KvjahguPtdn and subcutaneous tissue infections (7 sources)Cellulitis of right lower limb; Translations: [Cellulitis, unspecified]Onset: 74-65-1947ZlwfbxolQvgkltnqjep; intervertebral disc disorders; other back problems (6 sources)Postlaminectomy syndrome, not elsewhere classified; Translations: [POSTLAMINECTOMY SYNDROME NEC]Onset: 53-04-6430WekadvvCjhljguwg-related disorders (3 sources)Nicotine dependence, cigarettes, uncomplicated; Translations: [Nicotine dependence, unspecified, uncomplicated]Onset: 54-57-1213Zhazvui Systemic lupus erythematosus and connective tissue disorders (2 sources)Sicca syndrome, unspecified; Translations: [Sjogren syndrome, unspecified]Onset: 06-75-6214GqazsrcLfcdaetegpdx (2 sources)XROnset: 82-79-4601Sawiytvtkjpi (1 source)PRIMARY OSTEOARTHRITS OTH SPEC SITE; Translations: [PRIMARY OSTEOARTHRITS OTH SPEC SITE]Onset: 60-35-8449Soevyvsnxbgb (1 source)mitten sewer (current) use of 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 agent; Translations: [mitten sewer (current) use of 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 agent]Onset: 37-37-3731Tyzopezadftj (1 source)New PatientOnset: 05-02-2025 Past or Other Problems Problem ClassificationProblemDateDocumented DateEpisodic/ChronicE Codes: Adverse effects of medical drugs (4 sources)Adverse effect of loop [high-ceiling] diuretics, initial encounter; Translations: [ADVRS EFF LOOP HI-CEIL DIURETC INIT]Onset: 91-10-5398Wbqipicw Immunizations and screening for infectious disease (5 sources)Encounter for screening for human immunodeficiency virus [HIV]; Translations: [Encounter for screening for respiratory tuberculosis]Onset: 17-42-8162SkigmdpqDtwvvdq and fatigue (5 sources)Other fatigue; Translations: [OTHER FATIGUE]Onset: 86-16-7696Yibprrxv Nausea and vomiting (4 sources)Nausea with vomiting, unspecified; Translations: [Vomiting, unspecified]Onset: 04-13-0815OhlhttnsMbmnfxvjyejo breast conditions (4 sources)Other signs and symptoms in breast; Translations: [OTHER SIGNS AND SYMPTOMS IN BREAST]Onset: 45-61-9080GgvcqwnxOvtetzelwrg chest pain (3 sources)Chest pain; Translations: [Chest pain, unspecified]Onset: 10-29-2021 60-11-6377EmwwcppiFppay aftercare (12 sources)Postoperative visit; Translations: [Encounter for other specified surgical aftercare]Onset: 994037-83-3904WseoehvwUymwc connective tissue disease (1 source)Myalgia, unspecified site; Translations: [MYALGIA UNSPECIFIED SITE] Onset: 65-59-8014RawmfnyhDtgtn non-traumatic joint disorders (2 sources)Pain in left knee; Translations: [Pain in left knee]Onset: 04-01-2022 EpisodicOther screening for suspected conditions (not mental disorders or infectious disease) (14 sources)Elevated C-reactive protein (CRP); Translations: [Other abnormal and inconclusive findings on diagnostic imaging of breast]Onset: 03-85-9672Loozrogf Residual codes; unclassified (1 source)Family history of malignant neoplasm of breast; Translations: [FAMILY HX MALIG NEOPLASM OF BREAST]Onset: 83-78-6398OkgzydbrPztdtweh codes; unclassified (12 sources)History of endometrial ablation; Translations: [Other specified postprocedural states]Onset: 365158-87-0749CryfmqbsYhfhaajz codes; unclassified (2 sources)Tobacco user; Translations: [Tobacco use]Onset: EpisodicSyncope (3 sources)Syncope; Translations: [Syncope and collapse]Onset: 10-29-2021 95-49-0786TdqwsyfdHzaukpjzhlsh (1 source)mitten sewer (current) use of 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 agent; Translations: [mitten sewer (current) use of 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 agent]Onset: 01-12-2025 Results Test NameValueInterpretationReference RangeFacilityFollow-Upon 04-13-2025 Follow-[id number] Radha Mendoza 1975 F Date Provider Department Center 04/13/2025 Aminta-PETERSON BHATIA MP ORTHO MPORTHO Family History Problem Relation Age of Onset Coronary artery disease Mother No Known Problems Father Family Status - Relation Status Age at Mother Notes: cancer brast ca, ovarian, skin, heart disease Father Level of Service:81518 [place] OFFICE/OUTPATIENT ESTABLISHED LOW MDM 20 MIN Reason for Visit and Comments: Pain [136] - L knee pain , discuss L TKANormalUniversSelect Medical Specialty Hospital - CincinnatiOffice Visiton 41-89-6893Pghpgg-up [id number] Radha Mendoza 1975 F Date Provider Department Center 03/23/2025 JOHN SY MP ORTHO MPORTHO Family History Problem Relation Age of Onset Coronary artery disease Mother No Known Problems Father Family Status - Relation Status Age at Mother Notes: cancer brast ca, ovarian, skin, heart disease Father Level of Service:66795 [place] OFFICE/OUTPATIENT ESTABLISHED LOW [facility] 20 MIN Reason for Visit and Comments: Pain [136]NormalUnGalion HospitalOrders Onlyon 03-23-2025 Orders [id number] Radha Mendoza 1975 F Date Provider Department Center 03/23/2025 JOHN SY MP ORTHO MPORTHO Family History Problem Relation Age of Onset Coronary artery disease Mother No Known Problems Father Family Status - Relation Status Age at Mother Notes: cancer brast ca, ovarian, skin, heart disease FatherNormalUniversSelect Medical Specialty Hospital - CincinnatiCBC WITH AUTO DIFFERENTIALon 94-55-7756Auiwflegf (Bld) [#/Vol]0.05 10*3/uLNormal0.00-0.20UnGalion HospitalComment on above:Performed By: #### [id number] ####[facility] (BE[facility])[address] [place], [place] [address]Ttrmvdzqj/100 WBC (Bld)0.7 %Normal 0.0-1.0UnGalion HospitalComment on above:Performed By: #### [id number] ####[facility] (BE[facility]ER)[address] [place] [address] Eosinophils (Bld) [#/Vol]0.17 10*3/uLNormal0.00-0.50UnGalion HospitalComment on above:Performed By: #### [id number] ####[facility] (BE[facility]ER)[address] [place], [place] [address]Rwijgfjtepa/100 WBC (Bld)2.4 %Normal 0.0-6.0UnGalion HospitalComment on above:Performed By: #### [id number] ####[facility] ([facility])[address] [place] [address] Erythrocyte distribution width (RBC) [Ratio]16.1 %High11.5-15.0UnGalion HospitalComment on above:Performed By: #### [id number] ####[facility] ([facility])[address] [place], [place] [address]SXGWBGDVBYU MEAN CORPUSCULAR HEMOGLOBIN CONCENTRATION (G/DL) BY CZTIRNNZW80.1 g/kEFcffwi12.0-35.0 [facility] CenterComment on above:Performed By: #### [id number] ####[facility] ([facility])[address] [place], [place] [address]Tjasrafssu (Bld) [Volume fraction]45.8 %High36.0-45.0UnGalion HospitalComment on above:Performed By: #### [id number] ####[facility] ([facility])[address] [place], [place] [address]Ntzdaycblm (Bld) [Mass/Vol]14.7 g/tMDtxjgn29.0-15.0UnGalion HospitalComment on above:Performed By: #### [id number] ####[facility] ([facility])[address] [place], [place] [address]Ffyfjvjt granulocytes (Bld) [#/Vol]0.01 10*3/uLNormal0.00-0.20UnGalion Hospital Comment on above:Performed By: #### [id number] ####[facility] ([facility])[address] [place], [place] [address]Xunrijyl granulocytes/100 WBC (Bld)0.1 %Normal 0.0-1.0UnGalion HospitalComment on above:Performed By: #### [id number] ####[facility] ([facility])[address] [place] [address] Lymphocytes (Bld) [#/Vol]2.06 10*3/uLNormal1.20-4.00UnGalion HospitalComment on above:Performed By: #### [id number] ####[facility] ([facility]ER)[address] [place] [address]Nvubhdcxkre/100 WBC (Bld)29.0 %Normal 20.0-45.0UnGalion HospitalComment on above:Performed By: #### [id number] ####[facility] ([facility]ER)[address] [place] [address]OZT (RBC) [Entitic mass]30.0 sdGctvtn90.0-33.0UnGalion Hospital Comment on above:Performed By: #### [id number] ####[facility] ([facility]ER)[address] [place] [address]RHE (RBC) [Entitic vol]93.5 yJVrwrib52.0-98.0 [facility] CenterComment on above:Performed By: #### [id number] ####[facility] ([facility])[address] [place], [place] [address]Ecbovurlm (Bld) [#/Vol]0.61 10*3/uLNormal0.10-1.00UnGalion HospitalComment on above:Performed By: #### [id number] ####[facility] ([facility])[address] [address]Unoywkgfe/100 WBC (Bld)8.6 %Normal5.0-12.0UnGalion HospitalComment on above:Performed By: #### [id number] ####[facility] ([facility]ER)[address] [place], [place] [address]Oqbpdemyuhf (Bld) [#/Vol] 4.20 10*3/uLNormal1.60-7.60UnGalion HospitalComment on above: Performed By: #### [id number] ####[facility] ([facility])[address] [place], [place] [address]Pfhogjsljid/100 WBC (Bld)59.2 %Vbgrjv68.0-72.0UnGalion HospitalComment on above:Performed By: #### [id number] ####[facility] ([facility])[address] [place] [address]EPSO (PER 100 WBCS) BY AUTOMATED COUNT0.0 %Bucewb4ZlfyjlmfndGalion HospitalComment on above: Performed By: #### [id number] ####[facility] ([facility])[address] [place] [address]AXCNYSUMZ (10*3/UL) IN BLOOD AUTOMATED SIDYS304 10*3/uLNormal 150-400UnGalion HospitalComment on above:Performed By: #### [id number] ####[facility] ([facility])[address] [place] [address]QGH (Bld) [#/Vol]4.90 10*6/uLNormal3.80-5.00UnGalion Hospital Comment on above:Performed By: #### [id number] ####[facility] ([facility])[address] [place] [address]YEM (Bld) [#/Vol]7.10 10*3/uLNormal4.00-10.60 [facility] CenterComment on above:Performed By: #### [id number] ####[facility] ([facility])[address] [place], [place] [address]YOMQHMQZLEXHZ METABOLIC PANELon 38-75-2762Loaksbi [Mass/Vol]4.2 g/dLNormal3.5-5.7UnGalion HospitalComment on above:Performed By: #### [id number] ####[facility] ([facility])[address] [place], [place] [address]LAD [Catalytic activity/Vol]68 U/WFqmlkd95-585SiiunpzoywGalion HospitalComment on above:Performed By: #### [id number] ####[facility] ([facility])[address] [place], [place] [address]CMN [Catalytic activity/Vol]14 U/LNormal7-52UnGalion HospitalComment on above:Performed By: #### [id number] ####[facility] ([facility])[address] [place], [place] [address]Eewhs gap [Moles/Vol]12 mmol/L Normal7-20UnGalion HospitalComment on above:Performed By: #### [id number] ####[facility] ([facility])[address] [place], [place] [address]UFN [Catalytic activity/Vol]16 U/IVchqvo68-12HzwlftneqlGalion Hospital Comment on above:Performed By: #### [id number] ####[facility] ([facility])[address] [place], [place] [address]Riugrpoap [Mass/Vol]0.4 mg/dLNormal0.3-1.0 [facility] CenterComment on above:Performed By: #### [id number] ####[facility] ([facility])[address] [place], [place] [address]Xoqpajh [Mass/Vol]9.3 mg/dLNormal8.6-10.3UnGalion HospitalComment on above:Performed By: #### [id number] ####[facility] ([facility])[address] [place], [place] [address]Rpgecplx [Moles/Vol]101 mmol/EHysekx10-466HvtnfgmurkGalion HospitalComment on above:Performed By: #### [id number] ####[facility] ([facility])[address] [place], [place] [address]RU6 [Moles/Vol]31 mmol/LNormal 21-31UnGalion HospitalComment on above:Performed By: #### [id number] ####[facility] ([facility])[address] [place], [place] [address]Jvssrgqijv [Mass/Vol]0.76 mg/dLNormal0.60-1.20UnGalion HospitalComment on above:Performed By: #### [id number] ####[facility] ([facility])[address] [address]KTZPGIXIRT FILTRATION RATE ML/MIN/1.73 SQ M.MHJDVGAPH75.8 mL/min/1.73m*2Normal>60.0UnGalion HospitalComment on above: Result Comment: The [facility]???s estimated glomerular filtration rate (eGFR) will no [...] potential consequences that do not disproportionately affect anyone group of individuals.Performed By: #### [id number] ####[facility] ([facility])[address] [place] [address]Jqfwtjv [Mass/Vol]77 mg/sPCvvdfw22-223WqsnwzrjhoGalion HospitalComment on above:Performed By: #### [id number] ####[facility] ([facility])[address] [place] [address]Xskqwmiwc [Moles/Vol]4.5 mmol/LNormal3.5-5.1UnGalion HospitalComment on above:Performed By: #### [id number] ####[facility] ([facility])[address] [place] [address] Protein [Mass/Vol]7.1 g/dLNormal6.0-8.3Un[facility] Hospital Comment on above:Performed By: #### [id number] ####[facility] ([facility])[address] [place], [place] [address]Zjghef [Moles/Vol]139 mmol/SEgpjsj715-437NkzeohgpugGalion HospitalComment on above:Performed By: #### [id number] ####[facility] ([facility])[address] [place], [place] [address]Gbbg nitrogen [Mass/Vol] 14 mg/dLNormal7-25UnGalion HospitalComment on above:Performed By: #### [id number] ####[facility] (BEAKER)[address] [place] [address] UREA NITROGEN/CREATININE (MASS RATIO) IN SER/PLAS18.4NormalUniversity Trinity Health System West CampusComment on above:Performed By: #### [id number] ####[facility] (BE[facility]ER)[address] [place], [place] [address]Qqeifv-Hegk 66-98-6377Hnhdlt-Up [id number] Radha Mendoza 1975 F Date Provider Department Center 03/16/2025 Patricia-MEDINA MONTES [facility] RHEUM Nila Heal Family History Problem Relation Age of Onset Coronary artery disease Mother No Known Problems Father Family Status - Relation Status Age at Mother Notes: cancer brast ca, ovarian, skin, heart disease Father Level of Service:87157 [place] OFFICE/OUTPATIENT ESTABLISHED MOD MDM 30 MIN () Reason for Visit and Comments: Seronegative rheumatoid arthritis [Other] Follow-up [582826]NormalUnGalion HospitalDRUG SCREEN, UR-RFLEX CONFIRMon 07-90-7909CYKOBKA, UR.NegativeNormal(< 10 - Cutof)[facility] Comment on above:Order Comment: FACILITY: [facility] [id number] By: #### DS-M+ #### [facility] [address] [facility] [place], [address] AMPHETAMINES, UR.NegativeNormal(< 500 - Cutof)[facility] ClinicComment on above:Order Comment: FACILITY: [facility] [id number] By: #### DS-M+ #### [facility] [address] [facility] [place], [address] BARBITURATES, UR.NegativeNormal(< 300 - Cutof)[facility] ClinicComment on above:Order Comment: FACILITY: [facility] [id number] By: #### DS-M+ #### [facility] [address] [facility] [place], [address] BENZODIAZEPINES, UR.NegativeNormal(< 100 - Cutof)[facility] ClinicComment on above:Order Comment: [facility] [id number] By: #### DS-M+ #### [place] [facility] [place], [address] COCAINE METAB. UR.NegativeNormal(< 150 - Cutof)[facility] ClinicComment on above:Order Comment: [facility] [id number] By: #### DS-M+ #### [facility] [address] [facility] [place], [address] CREAT, URINE61.36 MG/DLNormal(20.00 - 320.0)[facility] ClinicComment on above:Order Comment: [facility] [id number] By: #### DS-M+ #### [facility] [address] [facility] [place], [address] FENTANYL, UR SCREENNegativeNormal(< 1.0 - Cutof)[facility] ClinicComment on above:Order Comment: [facility] [id number] By: #### DS-M+ #### [place] [facility] [address] [facility] [place], [address] HEROIN METAB. UR.NegativeNormal(< 10 - Cutof)[facility] ClinicComment on above:Order Comment: FACILITY: [facility] [id number] By: #### DS-M+ #### [place] [facility] [place], [address] METHADONE METAB. UR.NegativeNormal(< 100 - Cutof)[facility] ClinicComment on above:Order Comment: FACILITY: [facility] [id number] By: #### DS-M+ #### [place] [facility] [address] [place], [address] OPIATES, UR.NegativeNormal(< 100 - Cutof)[facility] Comment on above:Order Comment: [facility] [id number] By: #### DS-M+ #### [place] [facility] [address] [place], [address] OXYCODONE, UR.NegativeNormal(< 100 - Cutof)[facility] Comment on above:Order Comment: [facility] [id number] By: #### DS-M+ #### [place] [facility] [address] [place], [address] pH (U)[pH]Low(5.0 - 9.0)[facility] ClinicComment on above: Order Comment: [facility] [id number] By: #### DS-M+ #### [place] [facility] [address] [place], [address] PHENCYCLIDINE, UR.NegativeNormal(< 25 - Cutof)[facility] ClinicComment on above:Order Comment: [facility] [id number] By: #### DS-M+ #### [place] [facility] [address] [place], [address] THC METABOLITE, UR.PositiveHigh(< 20 - Cutof)[facility] ClinicComment on above:Order Comment: [facility] [id number] Comment: THC METABOLITE URINE SCREEN = POSITIVE Specimen sent for confirmation testing for THC - [facility] test # [id number] By: #### DS-M+ #### [place] [facility] [address] [place], [address] TRAMADOL, UR SCREENNegativeNormal(< 200 - Cutof)[facility] ClinicComment on above:Order Comment: FACILITY: [facility] [id number] Comment: This drug testing is for medical treatment only. Analysis was performed as non-forensic testing and the results should be used only by healthcare providers to render diagnosis or treatment, or to monitor the progress of medical conditions.Performed By: #### DS-M+ #### [facility] [address] [facility] [place], [address] [phone] 01/12/25 UPCOMING 03/16/25 LABS 01/12/25 CBC, CMPNormalUniversity Trinity Health System West CampusRefillon [id number] Radha Mendoza 1975 F Date Provider Department Center 03/13/2025 JENN [facility]T [facility] RHEUM Nila Heal Family History Problem Relation Age of Onset Coronary artery disease Mother No Known Problems Father Family Status - Relation Status Age at Mother Notes: cancer brast ca, ovarian, skin, heart disease Father Reason for Visit and Comments: Med Refill [[id number]][facility] Campuspecialty Pharmacyon 15-33-4137Mrowiptie [id number] Radha Mendoza 1975 Provider Department Center 01/18/2025 [address]1940[facility]FPYNVKGREG[facility] Spe Pha Comprehensiv Family History Problem Relation Age of Onset Coronary artery disease Mother No Known Problems Father Family Status - Relation Status Age at Mother Notes: cancer brast ca, ovarian, skin, heart disease Father Reason for Visit and Comments: Enbrel [Other][facility] HospitalDocumentationon [id number] Radha Mendoza 1975 Date Provider Department Center 01/13/2025 [facility] Spe Pha Comprehensiv Family History Problem Relation Age of Onset Coronary artery disease Mother No Known Problems Father Family Status - Relation Status Age at Mother Notes: cancer brast ca, ovarian, skin, heart disease Father Reason for Visit and Comments: Specialty Pharmacy Note: Enbrel [Other][facility] C-REACTIVE PROTEINon 01-12-2025 REACTIVE PROTEIN (MG/L) IN SER/PLAS12.0 mg/L High<=5.0UnGalion HospitalComment on above:Result Comment: Testing performed using a new methodology, turbidimetry. Normal ranges have been updated. Old normal range was <8 mg/L.Performed By: #### [id number] ####[facility] ([facility])[address] [place], [place] [address]THI WITH AUTO DIFFERENTIALon 06-26-1235Qyfeekolk (Bld) [#/Vol]0.05 10*3/uLNormal0.00-0.20 [facility] CenterComment on above:Performed By: #### [id number] ####[facility] ([facility])[address] [place], [place] [address]Jspmspojh/100 WBC (Bld)0.8 %Normal0.0-1.0UnGalion HospitalComment on above: Performed By: #### [id number] ####[facility] ([facility])[address] [facility] [place], [place] [address]Sxukrojqpfj (Bld) [#/Vol]0.13 10*3/uLNormal0.00-0.50 [facility] CenterComment on above:Performed By: #### [id number] ####[facility] ([facility])[address] [facility] [place], [place] [address]Rkbsgeqqcup/100 WBC (Bld)2.0 %Normal0.0-6.0UnGalion HospitalComment on above: Performed By: #### [id number] ####[facility] ([facility])[address] [facility] [place], [place] [address]Obrytfvrzia distribution width (RBC) [Ratio]17.3 %High 11.5-15.0UnGalion HospitalComment on above:Performed By: #### [id number] ####[facility] [place] [address] ERYTHROCYTE MEAN CORPUSCULAR HEMOGLOBIN CONCENTRATION (G/DL) BY GTBTTGWNR22.1 g/aHCgdjli66.0-35.0UnGalion HospitalComment on above:Performed By: #### [id number] ####[facility] (BE[facility]ER)[address] [place] [address]Wsduqdbmdd (Bld) [Volume fraction]46.4 %High36.0-45.0UnGalion HospitalComment on above:Performed By: #### [id number] ####[facility] ([facility] [place], [place] [address]Bpubwxqgum (Bld) [Mass/Vol]14.9 g/dL Kikzvi84.0-15.0[facility] CenterComment on above:Performed By: #### [id number] ####[facility] ([facility])[address] [place] [address] Immature granulocytes (Bld) [#/Vol]0.01 10*3/uLNormal0.00-0.20UnGalion HospitalComment on above:Performed By: #### [id number] ####[facility] (BE[facility]ER)[address] [place], [place] [address]Csgkqsyd granulocytes/100 WBC (Bld)0.2 %Normal0.0-1.0UnGalion HospitalComment on above: Performed By: #### [id number] ####[facility] (BEAKER)[address], [place] [address]Jvsftyhxajr (Bld) [#/Vol]1.76 10*3/uLNormal1.20-4.00 [facility] CenterComment on above:Performed By: #### [id number] ####[facility] (BEAKER)[address], [place] [address]Izvamupxncb/100 WBC (Bld)27.5 %Xyhjlw04.0-45.0UnGalion HospitalComment on above:Performed By: #### [id number] ####[facility] (BEAKER)[address], [place] [address]WWB (RBC) [Entitic mass]29.0 avTkosqq77.0-33.0UnGalion HospitalComment on above:Performed By: #### [id number] ####[facility] ([facility] [place] [address]NMS (RBC) [Entitic vol] 90.4 dUPbptqm11.0-98.0UnGalion HospitalComment on above: Performed By: #### [id number] ####[facility] ([facility])[address] [address]Xqvdaxvlo (Bld) [#/Vol]0.34 10*3/uLNormal0.10-1.00UnGalion HospitalComment on above:Performed By: #### [id number] ####[facility] ([facility])[address] [place] [address]Hchmvbftz/100 WBC (Bld) 5.3 %Normal5.0-12.0UnGalion HospitalComment on above:Performed By: #### [id number] ####[facility] (AKER)[address] [place] [address]Ifyngcocvxo (Bld) [#/Vol]4.11 10*3/uLNormal1.60-7.60UnGalion HospitalComment on above:Performed By: #### [id number] ####[facility] (BEAKER)[address] [place] [address]Xbmaghdszku/100 WBC (Bld)64.2 %Normal 40.0-72.0UnGalion HospitalComment on above:Performed By: #### [id number] ####[facility] (BEAKER)[address] [place] [address]MEGD (PER 100 WBCS) BY AUTOMATED COUNT0.0 %Bqntzi8GisepwzypfGalion Hospital Comment on above:Performed By: #### [id number] ####[facility] (BEAKER)[address] [place] [address]EAODPAGHZ (10*3/UL) IN BLOOD AUTOMATED [id number] 10*3/eKGbvavg192-916IolecyoikfGalion HospitalComment on above: Performed By: #### [id number] ####[facility] ([facility])[address], [place] [address]UQP (Bld) [#/Vol]5.13 10*6/uLHigh3.80-5.00UnGalion HospitalComment on above:Performed By: #### [id number] ####[facility] ([facility])[address], [place] [address]CWI (Bld) [#/Vol]6.40 10*3/uLNormal4.00-10.60UnGalion HospitalComment on above: Performed By: #### [id number] ####[facility] ([facility])[address] [place], [place] [address]NEGPNETKMBBLR METABOLIC PANELon 74-82-0348Qgmmvlp [Mass/Vol] 4.4 g/dLNormal3.5-5.7UnGalion HospitalComment on above: Performed By: #### [id number] ####[facility] ([facility])[address] [place], [place] [address]WGH [Catalytic activity/Vol]66 U/QOswcwx70-158ZfjjrhypkeGalion HospitalComment on above:Performed By: #### [id number] ####[facility] ([facility])[address] [place], [place] [address]FHH [Catalytic activity/Vol]18 U/L Normal7-52UnGalion HospitalComment on above:Performed By: #### [id number] ####[facility] ([facility])[address] [place], [place] [address]Xffit gap [Moles/Vol]11 mmol/LNormal7-20UnGalion HospitalComment on above:Performed By: #### [id number] ####[facility] ([facility])[address] [place], [place] [address]ECD [Catalytic activity/Vol]17 U/YAbnxdw52-96PlweioyebmGalion HospitalComment on above:Performed By: #### [id number] ####[facility] ([facility])[address] [place] [address]Cetfpiida [Mass/Vol]0.6 mg/dL Normal0.3-1.0UnGalion HospitalComment on above:Performed By: #### [id number] ####[facility] ([facility])[address] [place] [address] Calcium [Mass/Vol]9.1 mg/dLNormal8.6-10.3UnGalion Hospital Comment on above:Performed By: #### [id number] ####[facility] ([facility])[address] [place], [place] [address]Gycbvtoy [Moles/Vol]104 mmol/YGityii05-388 [facility] CenterComment on above:Performed By: #### [id number] ####[facility] ([facility])[address] [place] [address]TA9 [Moles/Vol] 31 mmol/ZPdpmxe76-90XtsahfsbmcGalion HospitalComment on above: Performed By: #### [id number] ####[facility] ([facility])[address] [place], [place] [address]Ltnclmhkru [Mass/Vol]0.80 mg/dLNormal0.60-1.20UnGalion HospitalComment on above:Performed By: #### [id number] ####[facility] ([facility])[address], [place] [address]FRXIQNISTK FILTRATION RATE ML/MIN/1.73 SQ M.DUVHFTXHS81.2 mL/min/1.73m*2Normal>60.0UnGalion Hospital Comment on above:Result Comment: The [facility]???s estimated glomerular filtration rate (eGFR) will no longer include consideration of race in its calculation. The National Kidney Foundation???s eGFR Task Force developed new recommendations for the estimation of the glomerular filtration ra te in the [place] They recommend immediate implementation of the new equation refit without the race variable in all laboratories because the calculation does not include race. In addition to not including race in the calculation and reporting, it included diversity in its development, and has acceptable performance characteristics and potential consequences that do not disproportionately affect anyone group of individuals.Performed By: #### [id number] ####[facility] ([facility])[address] [place], [place] [address]Ibcjxml [Mass/Vol]89 mg/cGTergzd20-063ZanfrwcofeGalion HospitalComment on above:Performed By: #### [id number] ####[facility] ([facility])[address] [place], [place] [address]Ftlduzfbj [Moles/Vol]4.5 mmol/LNormal3.5-5.1UnGalion HospitalComment on above:Performed By: #### [id number] ####[facility] ([facility])[address] [place], [place] [address]Slkckbc [Mass/Vol]7.3 g/dLNormal 6.0-8.3UnGalion HospitalComment on above:Performed By: #### [id number] ####[facility] ([facility])[address] [place], [place] [address]Jhlkua [Moles/Vol]141 mmol/EKbdjus134-665IkasbsrkxgGalion HospitalComment on above:Performed By: #### [id number] ####[facility] ([facility])[address] [place], [place] [address]Lcwh nitrogen [Mass/Vol]11 mg/dLNormal7-25UnGalion HospitalComment on above:Performed By: #### [id number] ####[facility] ([facility])[address] [place], [place] [address]HTTS NITROGEN/CREATININE (MASS RATIO) IN SER/PLAS13.8NormalUniversSelect Medical Specialty Hospital - CincinnatiComment on above: Performed By: #### [id number] ####[facility] ([facility])[address] [place], [place] [address]Pdihgj-Ppcx 79-70-8058Wswnjk-[id number] Radha Mendoza 1975 F Date Provider Department [place] 01/12/2025 GURJIT HENRYHAR M [facility] Nila Heal Family History Problem Relation Age of Onset Coronary artery disease Mother No Known Problems Father Family Status - Relation Status Age at Mother Notes: cancer brast ca, ovarian, skin, heart disease Father Level of Service:65760 [place] OFFICE/OUTPATIENT ESTABLISHED MOD MDM 30 MIN Reason for Visit and Comments: Follow-up [430779] - 3 monthNormalUniversSelect Medical Specialty Hospital - CincinnatiHEPATITIS B CORE ANTIBODY, TOTALon 29-18-8926JUWONIAKU B VIRUS CORE AB (PRESENCE) IN SER/PLAS BY IMMNon-ReactiveNormarNonThe Christ Hospital Comment on above:Performed By: #### [id number] ####[facility] ([facility])[address] [place], [place] [address]YEEUSMRXH B SURFACE ANTIGENon 83-16-6790LLZPWMJMU B VIRUS SURFACE AG PRESENCE IN SERUMNon-ReactiveWhite HospitalComment on above:Performed By: #### [id number] ####[facility] ([facility])[address] [place], [place] [address]CTSZZTGPECKER RATEon 29-63-0930KXYEAQTMMQXAP RATE, GFICDLQWWUN67 mm/hrNormal<30[facility] CenterComment on above:Performed By: #### [id number] ####[facility] ([facility])[address], [place] [address]jf 34-71-618968Lmti visit: 10/03/24 Next visit: 01/02/25 CBC/CMP: 10/03/24NormalUniDayton Osteopathic HospitalRefillon 12-19-2024 [id number] Radha Mendoza 1975 F Date Provider Department Center 12/19/2024 DAVE NELSON [facility] Nila Heal Family History Problem Relation Age of Onset Coronary artery disease Mother No Known Problems Father Family Status - Relation Status Age at Mother Notes: cancer brast ca, ovarian, skin, heart disease Father Reason for Visit and Comments: Med Refill [612728]NormalUnGalion HospitalOrders Onlyon 81-65-9466Eojrdo [id number] Radha Mendoza 1975 F Date Provider Department [place] 10/17/2024 [id number], HISTORICAL MP [facility] Family History Problem Relation Age of Onset Coronary artery disease Mother No Known Problems Father Family Status - Relation Status Age at Mother Notes: cancer brast ca, ovarian, skin, heart disease FatherNormalUniversSelect Medical Specialty Hospital - CincinnatiCB WITH AUTO DIFFERENTIALon 51-64-8579Tbgspowzg (Bld) [#/Vol]0.04 10*3/uLNormal0.00-0.20UnGalion HospitalComment on above:Performed By: #### [id number] ####[facility] ([facility])[address] [place], [place] [address]Tqsyzjvus/100 WBC (Bld)0.6 %Normal 0.0-1.0UnGalion HospitalComment on above:Performed By: #### [id number] ####[facility] ([facility])[address] [place] [address] Eosinophils (Bld) [#/Vol]0.14 10*3/uLNormal0.00-0.50UnGalion HospitalComment on above:Performed By: #### [id number] ####[facility] ([facility])[address] [facility] [place], [place] [address]Mjseznlocho/100 WBC (Bld)2.3 %Normal 0.0-6.0UnGalion HospitalComment on above:Performed By: #### [id number] ####[facility] ([facility])[address] [place] [address] Erythrocyte distribution width (RBC) [Ratio]19.5 %High11.5-15.0UnGalion HospitalComment on above:Performed By: #### [id number] ####[facility] ([facility])[address] [facility] [place], [place] [address]RQYQWGOPMFB MEAN CORPUSCULAR HEMOGLOBIN CONCENTRATION (G/DL) BY UHRXNTPYO90.7 g/dLLow32.0-35.0 [facility] CenterComment on above:Performed By: #### [id number] ####[facility] (BEAKER)[address] [place], [place] [address]Caoplrcfhy (Bld) [Volume fraction]45.8 %High36.0-45.0UnGalion HospitalComment on above:Performed By: #### [id number] ####[facility] (BEAKER)[address] [place], [place] [address]Agaxgewwvy (Bld) [Mass/Vol]14.5 g/pIQbgaqf96.0-15.0UnGalion HospitalComment on above:Performed By: #### [id number] ####[facility] ([facility])[address] [place], [place] [address]Gttzjfjp granulocytes (Bld) [#/Vol]0.01 10*3/uLNormal0.00-0.20Un[facility] Hospital Comment on above:Performed By: #### [id number] ####[facility] (BEAKER)[address] [place], [place] [address]Mhvasosb granulocytes/100 WBC (Bld)0.2 %Normal 0.0-1.0UnGalion HospitalComment on above:Performed By: #### [id number] ####[facility] (BEAKER)[address] [place] [address] Lymphocytes (Bld) [#/Vol]1.44 10*3/uLNormal1.20-4.00UnGalion HospitalComment on above:Performed By: #### [id number] ####[facility] (BEAKER)[address] [place], [place] [address]Cpamonjgaxp/100 WBC (Bld)23.2 %Normal 20.0-45.0UnGalion HospitalComment on above:Performed By: #### [id number] ####[facility] (BEAKER)[address], [place] [address]PRI (RBC) [Entitic mass]27.1 zzItrism56.0-33.0Un[facility] Hospital Comment on above:Performed By: #### [id number] ####[facility] ([facility])[address] [place] [address]TAW (RBC) [Entitic vol]85.6 yNHtatfu44.0-98.0 [facility] CenterComment on above:Performed By: #### [id number] ####[facility] ([facility])[address] [place] [address]Ubtbkndvh (Bld) [#/Vol]0.45 10*3/uLNormal0.10-1.00UnGalion HospitalComment on above:Performed By: #### [id number] ####[facility] ([facility])[address] [place] [address]Fesbnehrn/100 WBC (Bld)7.3 %Normal5.0-12.0UnGalion HospitalComment on above:Performed By: #### [id number] ####[facility] ([facility])[address] [place] [address]Nftaraahrrb (Bld) [#/Vol] 4.12 10*3/uLNormal1.60-7.60UnGalion HospitalComment on above: Performed By: #### [id number] ####[facility] ([facility])[address] [place] [address]Msxtinbaxgu/100 WBC (Bld)66.4 %Kihgzz47.0-72.0UnGalion HospitalComment on above:Performed By: #### [id number] ####[facility] ([facility])[address] [place] [address]AIHU (PER 100 WBCS) BY AUTOMATED COUNT0.0 %Gussdn8SvpiiwwzwuGalion HospitalComment on above: Performed By: #### [id number] ####[facility] ([facility])[address] [place] [address]RUCSMIKBY (10*3/UL) IN BLOOD AUTOMATED [id number] 10*3/uLNormal 150-400UnGalion HospitalComment on above:Performed By: #### [id number] ####[facility] ([facility])[address] [place] [address]CJP (Bld) [#/Vol]5.35 10*6/uLHigh3.80-5.00UnGalion HospitalComment on above:Performed By: #### [id number] ####[facility] ([facility])[address] [place], [place] [address]SDP (Bld) [#/Vol]6.20 10*3/uLNormal4.00-10.60 [facility] CenterComment on above:Performed By: #### [id number] ####[facility] ([facility])[address] [place], [place] [address]BDUHOTMRZYFID METABOLIC PANELon 83-24-0229Lnjnkiy [Mass/Vol]4.3 g/dLNormal3.5-5.7UnGalion HospitalComment on above:Performed By: #### [id number] ####[facility] ([facility])[address], [place] [address]GWM [Catalytic activity/Vol]81 U/VCisjso14-720LewqiytmcvGalion HospitalComment on above:Performed By: #### [id number] ####[facility] ([facility])[address] [place], [place] [address]MFV [Catalytic activity/Vol]13 U/LNormal7-52UnGalion HospitalComment on above:Performed By: #### [id number] ####[facility] ([facility])[address] [place], [place] [address]Ohzbr gap [Moles/Vol]9 mmol/L Normal7-20UnGalion HospitalComment on above:Performed By: #### [id number] ####[facility] ([facility])[address], [place] [address]UZY [Catalytic activity/Vol]14 U/IKutpot60-39MuziwoiufpGalion Hospital Comment on above:Performed By: #### [id number] ####[facility] ([facility])[address] [place], [place] [address]Dxbbcfwun [Mass/Vol]0.5 mg/dLNormal0.3-1.0 [facility] CenterComment on above:Performed By: #### [id number] ####[facility] ([facility])[address] [place], [place] [address]Dzlbdez [Mass/Vol]9.1 mg/dLNormal8.6-10.3UnGalion HospitalComment on above:Performed By: #### [id number] ####[facility] ([facility])[address] [place], [place] [address]Kyrvegnu [Moles/Vol]102 mmol/CQwrrvm24-206HsntegyqjdGalion HospitalComment on above:Performed By: #### [id number] ####[facility] ([facility])[address] [place], [place] [address]GV4 [Moles/Vol]32 mmol/VHrsa45-92 [facility] CenterComment on above:Performed By: #### [id number] ####[facility] ([facility])[address] [place], [place] [address]Kvsmjczzgt [Mass/Vol]0.73 mg/dLNormal0.60-1.20UnGalion HospitalComment on above:Performed By: #### [id number] ####[facility] ([facility])[address] [place], [place] [address]KDQYDZMSTC FILTRATION RATE ML/MIN/1.73 SQ M.AAAOMEPCC15.5 mL/min/1.73m*2Normal>60.0UnGalion HospitalComment on above: Result Comment: The [facility]???s estimated glomerular filtration rate (eGFR) will no [...] potential consequences that do not disproportionately affect anyone group of individuals.Performed By: #### [id number] ####[facility] ([facility])[address] [place], [place] [address]Ytoujag [Mass/Vol]96 mg/kAJrqqlf99-466IeztdavzveGalion HospitalComment on above:Performed By: #### [id number] ####[facility] ([facility])[address] [place], [place] [address]Aqfqrqmoi [Moles/Vol]4.4 mmol/LNormal3.5-5.1UnGalion HospitalComment on above:Performed By: #### [id number] ####[facility] ([facility])[address] [place] [address] Protein [Mass/Vol]7.4 g/dLNormal6.0-8.3[facility] Comment on above:Performed By: #### [id number] ####[facility] ([facility])[address] [place], [place] [address]Bkqmfo [Moles/Vol]139 mmol/ZEemvxa689-684HuddyxinbeGalion HospitalComment on above:Performed By: #### [id number] ####[facility] ([facility])[address] [place], [place] [address]Ivkh nitrogen [Mass/Vol]9 mg/dLNormal7-25UnGalion HospitalComment on above:Performed By: #### [id number] ####[facility] ([facility])[address] [place] [address] UREA NITROGEN/CREATININE (MASS RATIO) IN SER/PLAS12.3NormalUniversSelect Medical Specialty Hospital - CincinnatiComment on above:Performed By: #### [id number] ####[facility] ([facility])[address] [place], [place] [address]Ivzkfh-Frpb 28-24-7861Zcoyxk-Up [id number] Radha Mendoza 1975 F Date Provider Department Center 10/03/2024 Patricia-[facility] Nila Heal Family History Problem Relation Age of Onset Coronary artery disease Mother No Known Problems Father Family Status - Relation Status Age at Mother Notes: cancer brast ca, ovarian, skin, heart disease Father Level of Service:01582 [place] OFFICE/OUTPATIENT ESTABLISHED MOD MDM 30 MIN Reason for Visit and Comments: Seronegative rheumatoid arthritis [Other] Follow-up [456491]NormalUnMagruder HospitalJOGRENS SYNDROME ANTIBODIES A AND Bon 77-64-4645GPT TO SSA (RO) ANTIBODYNegativeNormalNegative [facility] CenterComment on above:Performed By: #### [id number] ####[facility] (BEAKER)[address] [place], [place] [address]ZJR TO SSB ([place]) ANTIBODYNegativeNormalNegativeUnGalion HospitalComment on above:Performed By: #### [id number] ####[facility] ([facility]ER)[address] [place], [place] [address]JSAO SCREEN, UR-RFLEX CONFIRMon 89-55-6523WOTIYPE, UR. NegativeNormal(< 10 - Cutof)[facility] ClinicComment on above:Order Comment: FACILITY: [facility] [id number] By: #### DS-M+ #### [facility] [address] [facility] [place], [address] AMPHETAMINES, UR.NegativeNormal(< 500 - Cutof)[facility] ClinicComment on above:Order Comment: FACILITY: [facility] [id number] By: #### DS-M+ #### [facility] [facility] [address] [place], [address] BARBITURATES, UR.NegativeNormal(< 300 - Cutof)[facility] ClinicComment on above:Order Comment: FACILITY: [facility] [id number] By: #### DS-M+ #### [facility] [address] [facility] [place], [address] BENZODIAZEPINES, UR.NegativeNormal(< 100 - Cutof)Udran ClinicComment on above:Order Comment: FACILITY: [facility] [place] [id number] By: #### DS-M+ #### [facility] [facility] [address] [place], [address] COCAINE METAB. UR.NegativeNormal(< 150 - Cutof)[facility] ClinicComment on above:Order Comment: FACILITY: [facility] [place] [id number] By: #### DS-M+ #### [facility] [facility] [place], [address] CREAT, URINE40.70 MG/DLNormal(20.00 - 320.0)[facility] ClinicComment on above:Order Comment: FACILITY: [facility] [place] [id number] By: #### DS-M+ #### [facility] [facility] [place], [address] FENTANYL, UR SCREENNegativeNormal(< 1.0 - Cutof)[facility] ClinicComment on above:Order Comment: FACILITY: [facility] [place] [id number] By: #### DS-M+ #### [place] [facility] [place], [address] HEROIN METAB. UR.NegativeNormal(< 10 - Cutof)[facility] ClinicComment on above:Order Comment: FACILITY: [facility] [place] [id number] By: #### DS-M+ #### [place] [facility] [address] [place], [address] METHADONE METAB. UR.NegativeNormal(< 100 - Cutof)[facility] ClinicComment on above:Order Comment: FACILITY: [facility] [place] [id number] By: #### DS-M+ #### [place] [facility] [address] [place], [address] OPIATES, UR.NegativeNormal(< 100 - Cutof)[facility] Comment on above:Order Comment: FACILITY: [facility] [id number] By: #### DS-M+ #### [place] [facility] [address] [place], [address] OXYCODONE, UR.NegativeNormal(< 100 - Cutof)[facility] Comment on above:Order Comment: FAC[facility]: [id number] By: #### DS-M+ #### [facility] [address] [place], [address] pH (U)6.0 [pH]Normal(5.0 - 9.0)D[facility] ClinicComment on above:Order Comment: FACILITY: [id number] By: #### DS-M+ #### [facility] [place], [address] PHENCYCLIDINE, UR.NegativeNormal(< 25 - Cutof)[facility] ClinicComment on above:Order Comment: FACILITY: [id number] By: #### DS-M+ #### [facility] [place], [address] THC METABOLITE, UR.PositiveHigh(< 20 - Cutof)[facility] ClinicComment on above:Order Comment: FACILITY: [facility] - SEC[facility] [id number] Comment: THC METABOLITE URINE SCREEN = POSITIVE Specimen sent for confirmation testing for THC - [facility] test # [id number] By: #### DS-M+ #### [facility] [address] [place], [address] TRAMADOL, UR SCREENNegativeNormal(< 200 - Cutof)[facility] ClinicComment on above:Order Comment: FACILITY: [facility] [id number] Comment: This drug testing is for medical treatment only. Analysis was performed as non-forensic testing and the results should be used only by healthcare providers to render diagnosis or treatment, or to monitor the progress of medical conditions.Performed By: #### DS-M+ #### [facility] [address] [facility], [place], [address] Office Visiton [id number] Radha Mendoza 1975 F Date Provider Department Center 09/08/2024 [facility] Family History Problem Relation Age of Onset Coronary artery disease Mother No Known Problems Father Family Status - Relation Status Age at Mother Notes: cancer brast ca, ovarian, skin, heart disease Father Level of Service:[address] [place] OFFICE/OUTPATIENT ESTABLISHED HIGH MDM 40 MIN Reason for Visit and Comments: Vomiting [120][facility] - T[facility]UE EXAMon [id number] AP ADDENDUM 1NormalLakeHealth Beachwood Medical CenterComment on above:Result Comment: H. Pylori: Negative Addendum electronically signed by Lucretia Min MD on 07/28/2024 at 12:10 PM Performed By: #### [id number] ####[facility] ([facility])[address], [place] [address]FKR AP ASR DISCLAIMERThe interpretation of this case included the use of immunohistochemistry or special stains. These tests have not been cleared or approved by the U.S. Food and Drug Administration. The FDA has determined that such clearance or approval is not necessary. These tests are used for clinical purposes andshould not be regarded as investigational or for research. This laboratory is certified to perform high complexity testing under the Clinical Laboratory Improvement Amendments of 1998.[facility] HospitalComment on above:Performed By: #### [id number] ####[facility] ([facility])[address] [place], [place] [address]OMH AP CASE REPORTNormal [facility] Medical CenterComment on above:Result Comment: Surgical Pathology Case: [id number] Authorizing Provider: Alexandria Worthington MD Collected: 07/26/2024 0835 Ordering Location: [facility] Main Operating Room Received: 07/26/2024 1045 Pathologist: Lucretia Min MD Specimen: Gastric, r/o h. pyloriPerformed By: #### [id number] ####[facility] ([facility])[address] [place], [place] [address]FLR CLINICAL INFORMATIONOrder DiagnosesNoSt. Mary's Medical Center, Ironton CampusComcorewell health butterworth hospital on above:Result Comment: R11.10 - Vomiting, unspecified vomiting type, unspecified whether nausea present [ICD-10-CM] K21.9 - Chronic gastroesophageal reflux disease [ICD-10-CM]Performed By: #### [id number] ####[facility] ([facility])[address] [place], [place] [address]QNB DIAGNOSIS COMMENTAn immunohistochemical stain for H. Pylori has been requested and will be reported separately as anaddendum.[facility]rbana HospitalComment on above:Performed By: #### [id number] ####[facility] ([facility])[address] [place], [place] [address]OJW GROSS DESCRIPTIONA. Gastric. [facility]rbana HospitalComcorewell health butterworth hospital on above:Result Comment: Part A is received in formalin labeled Radha Reji and gastric rule out H. pylori. It consists of 4 naylor-pink, irregular pieces of mucosal tissue ranging from 0.3 cm to 0.5 cm in greatest dimension. The specimen is submitted in toto in 1 cassette. Rita Carney, Pathologists' Core Shaper Top student Elroy Sylvester, Pathologists' AssistantPerformed By: #### [id number] ####[facility] ([facility])[address] [place], [place] [address]NKQ MICROSCOPIC DESCRIPTIONMicroscopic examination performed.[facility]rbana HospitalComment on above:Performed By: #### [id number] ####[facility] ([facility])[address] [place], [place] [address]VNB REPORT FINAL DIAGNOSIS NARRATIVENormalUFort Hamilton HospitalComcorewell health butterworth hospital on above:Result Comment: Stomach, gastric, biopsy: - Chronic inactive gastritis - No intestinal metaplasia - No evidence of dysplasia - H.pylori: Requested- See comment Performed By: #### [id number] ####[facility] ([facility])[address] [place], [place] [address]QV on 69-32-6469MQT&P reviewed. The patient was examined and there are no changes to the H&P.NormalUnGalion HospitalNURSNOTEon 07-26-2024 NURSNOTEGave discharge instructions at bedsideNormalUniversSelect Medical Specialty Hospital - CincinnatiNAbby Worthington attempted to update patient in swr, no family in swr at this timeNormalUniDayton Osteopathic HospitalPOCT GLUCOSE METER UNSOLICITED RESULTSon 67-96-4461Wxpihim [Mass/Vol]113 mg/kMFdzd19-921DubfzytiguGalion HospitalComment on above:Order Comment: Waived Testing in the ED is performed under the ED CLIA certificate #[id number].Result Comment: epawlow Performed By: #### [id number] ####[facility] ([facility])[address] [place], [place] [address]Yumcys Onlyon 60-61-0465Wzgrch [id number] Radha Mendoza 1975 F Date Provider Department Center 07/12/[address] [facility] Medical C Family History Problem Relation Age of Onset Coronary artery disease Mother No Known Problems Father Family Status - Relation Status Age at Mother Notes: cancer brast ca, ovarian, skin, heart disease FatherNormalUniversSelect Medical Specialty Hospital - CincinnatiDRUG SCREEN, UR-RFLEX CONFIRMon 21-10-1482RRVYRYF, UR.NegativeNormal(< 10 - Cutof)[facility]uran ClinicComment on above: Order Comment: FACILITY: [facility] [id number] By: #### DS-M+ #### [facility] [address] [facility] [place], [address] AMPHETAMINES, UR.NegativeNormal(< 500 - Cutof)Duran ClinicComment on above:Order Comment: FACILITY: [facility] [id number] By: #### DS-M+ #### [facility] [facility] [address] [place], [address] BARBITURATES, UR.NegativeNormal(< 300 - Cutof)Duran ClinicComment on above:Order Comment: [facility] [id number] By: #### DS-M+ #### [place] [facility] [place], [address] BENZODIAZEPINES, UR.NegativeNormal(< 100 - Cutof)Duran ClinicComment on above:Order Comment: [facility]: [facility] - [id number] By: #### DS-M+ #### [place] [facility] [place], [address] COCAINE METAB. UR.NegativeNormal(< 150 - Cutof)[facility] ClinicComment on above:Order Comment: [facility] [id number] By: #### DS-M+ #### [facility] [facility] [place], [address] CREAT, URINE47.51 MG/DLNormal(20.00 - 320.0)Duran ClinicComment on above:Order Comment: [id number] By: #### DS-M+ #### [place] [facility] [place], [address] FENTANYL, UR SCREENNegativeNormal(< 1.0 - Cutof)[facility]uran ClinicComment on above:Order Comment: [facility] [id number] By: #### DS-M+ #### [place] [facility] [place], [address] HEROIN METAB. UR.NegativeNormal(< 10 - Cutof)Duran ClinicComment on above:Order Comment: FACILITY: [facility] [id number] By: #### DS-M+ #### [place] [facility] [address] [place], [address] METHADONE METAB. UR.NegativeNormal(< 100 - Cutof)Duran ClinicComment on above:Order Comment: FACILITY: [facility] [id number] By: #### DS-M+ #### [place] [facility] [address] [place], [address] OPIATES, UR.NegativeNormal(< 100 - Cutof)[facility] Comment on above:Order Comment: F[facility]ILITY: [facility] [id number] By: #### DS-M+ #### [place] [facility] [address] [place], [address] OXYCODONE, UR.NegativeNormal(< 100 - Cutof)[facility] Comment on above:Order Comment: FACILITY: [facility] [id number] By: #### DS-M+ #### [place] [facility] [address] [place], [address] pH (U)6.0 [pH]Normal(5.0 - 9.0)Duran ClinicComment on above:Order Comment: FACILITY: [facility] [id number] By: #### DS-M+ #### [place] [facility] [address] [place], [address] PHENCYCLIDINE, UR.NegativeNormal(< 25 - Cutof)Duran ClinicComment on above:Order Comment: FACILITY: [facility] [id number] By: #### DS-M+ #### [place] [facility] [address] [place], [address] THC METABOLITE, UR.PositiveHigh(< 20 - Cutof)Duran ClinicComment on above:Order Comment: FACILITY: [facility] [id number] Comment: THC METABOLITE URINE SCREEN = POSITIVE Specimen sent for confirmation testing for THC - [facility] test # [id number] By: #### DS-M+ #### [facility] [address] [facility] [place], [address] TRAMADOL, UR SCREENNegativeNormal(< 200 - Cutof)[facility] ClinicComment on above:Order Comment: FACILITY: [facility] [id number] Comment: This drug testing is for medical treatment only. Analysis was performed as non-forensic testing and the results should be used only by healthcare providers to render diagnosis or treatment, or to monitor the progress of medical conditions.Performed By: #### DS-M+ #### [facility] [address] [facility] [place], [address] Orders Onlyon 52-23-7235Jrxzzr [id number] Radha Mendoza 1975 F Date Provider Department Center 2024 [id number], HISTORICAL [facility] PAT [facility] Family History Problem Relation Age of Onset Coronary artery disease Mother No Known Problems Father Family Status - Relation Status Age at Mother Notes: cancer brast ca, ovarian, skin, heart disease FatherNormalUniversSelect Medical Specialty Hospital - CincinnatiPrep for Procedureon 2024 Prep for [id number] Radha Mendoza 1975 Date Provider Department Center 2024 [facility] GEORGERamila Family History Problem Relation Age of Onset Coronary artery disease Mother No Known Problems Father Family Status - Relation Status Age at Mother Notes: cancer brast ca, ovarian, skin, heart disease FatherNormalUniversity of Christus Mother Frances Hospital – Sulphur SpringsFollow-Upon 75-92-2623Wydrgb-Up [id number] Rahda Mendoza 1975 Date Provider Department Center 07/04/2024 [facility] RHEUM Nila Heal Family History Problem Relation Age of Onset Coronary artery disease Mother No Known Problems Father Family Status - Relation Status Age at Mother Notes: cancer brast ca, ovarian, skin, heart disease Father Level of Service:99907 [place] OFFICE/OUTPATIENT ESTABLISHED MOD MDM 30 MIN Reason for Visit and Comments: Follow-up [472104] - Seronegative rheumatoid arthritisNormalUniversity Trinity Health System West CampusHPon 28-40-9286UKFuuwtflfoc Patient ID: Radha Mendoza is a 48 y.o. female with seronegative RA, bilateral hand and right knee OA s/p R TKA complicated by cellulitis, lumbar back surgery, migraine headaches, COPD/CESARIO on CPAP, tobacco dependence, history of [place], CHF, PTSD, bipolar, anxiety and morbid obesity. She presents as follow up, was last seen on 02/04/2024 Current medication regimen: Methotrexate 25 mg (10 tabs of 2.5 mg) weekly, folate supplementation. HPI Patient reports arthritis symptoms have been ok. She notes that symptoms are worst on cold damp days. Morning stiffness lasting maybe up to half hour, improves with movement. She reports swelling in fingers but can not identify reason for when swollen. She has not had oral ulcers, nausea, vomiting with methotrexate. Dry eyes and mouth. Has not used eye drops. Keeps drink with her for dry mouth. GERD controlled with protonix 40 mg daily. Carpal tunnel syndrome is bothersome. 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 She has wrist braces at home and states they help when she wears them but that she doesn't wear them often. Does not want to do surgery. Would not like steroid injections either. Bilateral knee OA, pain noticed mostly in left knee as has hx of right sided TKA. Worse with activity and improves with rest. Not interested in left sided replacement anytime soon. Patient continues to smoke cigarettes, 2 ppd. She is not interested in quitting at this time. Review of Systems Constitutional: Positive for fatigue. Negative for chills, fever and unexpected weight change. HENT: Negative for mouth sores and trouble swallowing. Dry mouth. Eyes: Negative for visual disturbance. Dry eyes. Respiratory: Positive for cough and shortness of breath. Negative for chest tightness. Cardiovascular: Positive for leg swelling. Negative for chest pain and palpitations. Gastrointestinal: Negative for abdominal pain, nausea and vomiting. GERD, controlled Genitourinary: Negative for dysuria. Musculoskeletal: Negative for arthralgias, back pain, joint swelling (occasional in fingers, none today) and myalgias. Skin: Negative for rash. 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 Negative for dizziness, light-headedness and headaches. Objective Visit Vitals BP 106/68 (BP Location: Right arm, Patient Position: Sitting, BP Cuff Size: Adult) Pulse 78 Physical Exam Vitals reviewed. Constitutional: General: She is not in acute distress. Appearance: Normal appearance. HENT: Head: Normocephalic and atraumatic. Eyes: General: No scleral icterus. Extraocular Movements: Extraocular movements intact. Cardiovascular: Rate and Rhythm: Normal rate and regular rhythm. Heart sounds: Normal heart sounds. No murmur heard. Pulmonary: Effort: No respiratory distress. Breath sounds: No stridor. Wheezing present. No rales. Musculoskeletal: General: No swelling, tenderness or deformity. Right lower leg: Edema present. Left lower leg: Edema present. Skin: General: Skin is warm and dry. Findings: No rash. Neurological: General: No focal deficit present. Mental Status: She is alert. Psychiatric: Mood and Affect: Mood normal. Behavior: Behavior normal. Assessment/Plan Diagnoses and all orders for this visit: Seronegative rheumatoid arthritis (CMS/HCC) Methotrexate, half-way, current use - CBC and differential; Future - Comprehensive metabolic panel; Future Bilateral carpal tunnel syndrome Osteoarthritis of both hands, unspecified osteoarthritis type Sjogren's syndrome, with unspecified organ involvement (CMS/HCC) - Sjogrens syndrome antibodies A and B; Future - pilocarpine (Salagen) 7.5 mg tablet; Take 1 tablet (7.5 mg) by mouth three times daily. 48 y.o. year old female with history of bilateral hand and right knee OA status post total knee replacement complicated by cellulitis, lumbar back surgery, migraine headaches, COPD/CESARIO on CPAP, history of [place], CHF, PTSD, bipolar, anxiety and morbid obesity presenting for routine follow up. Seronegative rheumatoid arthritis Long-term use of methotrexate Medication regimen: Methotrexate 25 mg (10 tabs of 2.5 mg) weekly, folate supplementation. *Presented with polyarthragias of the knees, wrists, hands, hip with AM pain/stiffness and associated synovitis Plan: - Continue [facility] medication regimen: - Methotrexate 25 mg (10 tabs of 2.5 mg) weekly - Folate supplementation. - Medication monitoring with CBC and CMP every 3 months on Methotrexate therapy. - Last done in 01/2024 and reviewed. - Will recheck labs today CMP and CBC Dry eye and dry mouth Plan: - Check Sjogren's Syndrome Antibodies - Start Pilocarpine 7.5 mg TID Bilateral knee osteoarthritis s/p R TKA Bilateral hand osteoarthritis *in office [facility] ultrasound of the left knee on 04/27/20 (more content not included)...NormalUnGalion HospitalOffice Visiton 06-02-2024 Follow-up [id number] Radha Mendoza 1975 F Date Provider Department Center 06/02/2024 3848-HAILE NAJERA AMA [place] Family History Problem Relation Age of Onset Coronary artery disease Mother No Known Problems Father Family Status - Relation Status Age at Mother Notes: cancer brast ca, ovarian, skin, heart disease Father Level of Service:57183 [place] OFFICE/OUTPATIENT ESTABLISHED MOD MDM 30 MINNormal [facility] Medical CenterDRUG SCREEN, UR-RFLEX CONFIRMon 05-06-2024 ALCOHOL, UR.NegativeNormal(< 10 - Cutof)Duran ClinicComment on above:Order Comment: FACILITY: [facility] [id number] By: #### DS-M+ #### [facility] [address] [facility] [place], [address] AMPHETAMINES, UR.NegativeNormal(< 500 - Cutof)Duran ClinicComment on above:Order Comment: FACILITY: [facility] [id number] By: #### DS-M+ #### [facility] [address] [facility] [place], [address] BARBITURATES, UR.NegativeNormal(< 300 - Cutof)Duran ClinicComment on above:Order Comment: FACILITY: [facility] [id number] By: #### DS-M+ #### [facility] [address] [facility] [place], [address] BENZODIAZEPINES, UR.NegativeNormal(< 100 - Cutof)Duran ClinicComment on above:Order Comment: FACILITY: [facility] [id number] By: #### DS-M+ #### [facility] [facility] [address] [place], [address] COCAINE METAB. UR.NegativeNormal(< 150 - Cutof)Duran ClinicComment on above:Order Comment: FACILITY: [facility] [id number] By: #### DS-M+ #### [facility] [facility] [place], [address] CREAT, URINE25.62 MG/DLNormal(20.00 - 320.0)Duran ClinicComment on above:Order Comment: [facility] [id number] By: #### DS-M+ #### [facility] [address] [facility] [place], [address] FENTANYL, UR SCREENNegativeNormal(< 1.0 - Cutof)Duran ClinicComment on above:Order Comment: [facility] [id number] By: #### DS-M+ #### [place] [facility] [address] [facility] [place], [address] HEROIN METAB. UR.NegativeNormal(< 10 - Cutof)Duran ClinicComment on above:Order Comment: FACILITY: [facility] [id number] By: #### DS-M+ #### [facility] [facility] [place], [address] METHADONE METAB. UR.NegativeNormal(< 100 - Cutof)Duran ClinicComment on above:Order Comment: FACILITY: [facility] [id number] By: #### DS-M+ #### [place] [facility] [address] [place], [address] OPIATES, UR.NegativeNormal(< 100 - Cutof)[facility] Comment on above:Order Comment: [facility] [id number] By: #### DS-M+ #### [place] [facility] [address] [place], [address] OXYCODONE, UR.NegativeNormal(< 100 - Cutof)[facility] Comment on above:Order Comment: [facility] [id number] By: #### DS-M+ #### [place] [facility] [address] [place], [address] pH (U)6.0 [pH]Normal(5.0 - 9.0)Duran ClinicComment on above:Order Comment: [facility]: [facility] [id number] By: #### DS-M+ #### [place] [facility] [address] [place], [address] PHENCYCLIDINE, UR.NegativeNormal(< 25 - Cutof)Duran ClinicComment on above:Order Comment: FACILITY: [facility] [id number] By: #### DS-M+ #### [place] [facility] [address] [place], [address] THC METABOLITE, UR.PositiveHigh(< 20 - Cutof)Duran ClinicComment on above:Order Comment: FACILITY: [facility] [id number] Comment: THC METABOLITE URINE SCREEN = POSITIVE Specimen sent for confirmation testing for THC - [facility] test # [id number] By: #### DS-M+ #### [place] [facility] [address] [place], [address] TRAMADOL, UR SCREENNegativeNormal(< 200 - Cutof)Duran ClinicComment on above:Order Comment: [facility]: [facility] [id number] Comment: This drug testing is for medical treatment only. Analysis was performed as non-forensic testing and the results should be used only by healthcare providers to render diagnosis or treatment, or to monitor the progress of medical conditions.Performed By: #### DS-M+ #### [facility] [address] [facility] [place], [address] XR CHEST 2Von 34-77[place] [address] XRay Report Signed Patient: RADHA MENDOZA MR#: [id number] : 1975 Acct:[id number] Age/Sex: 48 / F ADM Date: 09/02/23 Loc: [facility] Attending Dr: Reza Mendez D.O. Ordering Physician: Reza Mendez D.O. Date of Service: 09/02/23 Procedure(s): XR chest 2V Accession Number(s): [id number] cc: Reza Mendez D.O.; DONNIE KAMINSKI M.D. [place] [id number] Patient Name: RADHA MENDOZA MRN: [id number] date: 1975 Sex: F Assigned Patient Location: [facility] Current Patient Location: [facility] Accession/Order Number: [id number] Exam Date: 09/02/2023 13:15 Report Date: 09/02/2023 16:23 At the request of: REZA MENDEZ Procedure: XR chest 2V EXAM: XR chest 2V HISTORY: Preop examination. COMPARISON: Chest radiograph dated 04/28/2023. TECHNIQUE: PA and lateral views of the chest performed. FINDINGS: The trachea is midline. There is stable mild enlargement of the cardiac silhouette. There are stable prominent and coarsened interstitial markings throughout both lung medeiros suggesting chronic interstitial lung disease. Correlate with a clinical history of emphysema. There is no acute consolidation or infiltrate. There is no pleural effusion or pulmonary vascular congestion. There is no pneumothorax or acute osseous abnormality. XR/XR chest 2V IMPRESSION: There is no acute cardiopulmonary process. Stable prominent and coarsened interstitial markings throughout both lung medeiros suggesting chronic interstitial lung disease. Correlate with a clinical history of emphysema. Electronically authenticated by: MELISSA SCHREIBER Date: 09/02/2023 16:23 Dictated By: Melissa Schreiber M.D. Signed By: 09/02/23 1625 DD/ 22 TD/TT: Social Secretary:MANSOORadiologdaxa Radiologist, - 09/02/2023 [place] [address] XRay Report Signed Patient: RADHA MENDOZA MR#: [id number] : 1975 Acct:[id number] Age/Sex: 48 / F ADM Date: 09/02/23 Loc: [facility] Attending Dr: Reza Mendez D.O. Ordering Physician: Reza Mendez D.O. Date of Service: 09/02/23 Procedure(s): XR chest 2V Accession Number(s): [id number] cc: Reza Mendez D.O.; DONNIE KAMINSKI M.D. [place] [address] Patient Name: RADHA MENDOZA MRN: [facility]:[id number] date: 1975 Sex: F Assigned Patient Location: [facility] Current Patient Location: [facility] Accession/Order Number: [id number] Exam Date: 09/02/2023 13:15 Report Date: 09/02/2023 16:23 At the request of: REZA MENDEZ Procedure: XR chest 2V EXAM: XR chest 2V HISTORY: Preop examination. COMPARISON: Chest radiograph dated 04/28/2023. TECHNIQUE: PA and lateral views of the chest performed. FINDINGS: The trachea is midline. There is stable mild enlargement of the cardiac silhouette. There are stable prominent and coarsened interstitial markings throughout both lung medeiros suggesting chronic interstitial lung disease. Correlate with a clinical history of emphysema. There is no acute consolidation or infiltrate. There is no pleural effusion or pulmonary vascular congestion. There is no pneumothorax or acute osseous abnormality. XR/XR chest 2V IMPRESSION: There is no acute cardiopulmonary process. Stable prominent and coarsened interstitial markings throughout both lung medeiros suggesting chronic interstitial lung disease. Correlate with a clinical history of emphysema. Electronically authenticated by: MELISSA SCHREIBER Date: 09/02/2023 16:23 Dictated By: Melissa Schreiber M.D. Signed By: 09/02/231624 DD/ 22 TD/TT: Social Secretary: ANH HealthcareRadiology Study observation (narrative)NOMS HealthcareXR CHEST 2V Ordered By: Radiologist Radiology on 97-21-0567VRHJ Healthcare Work Phone: aLL BASIC METABOLIC PANELon 84-90-8850Taufl gap [Moles/Vol]8.4 mmol/LNOMS HealthcareCalcium [Mass/Vol]9.1 mg/dL8.5 - 10.1 mg/dL NOMS HealthcareChloride [Moles/Vol]100 mmol/L98 - 107 mmol/LNOMS HealthcareCO2 [Moles/Vol]31.5 mmol/L21.0 - 32.0 mmol/LNOMS HealthcareCreatinine [Mass/Vol]0.84 mg/dL0.55 - 1.02 mg/dLNOMS HealthcareGFR/1.73 sq M.predicted CKD-EPI (S/P/Bld) [Vol rate/Area]>6060 - PINFNOMS HealthcareGlucose [Mass/Vol]103 mg/dL74 - 106 mg/dLNOMS HealthcarePotassium [Moles/Vol]3.9 mmol/L3.5 - 5.1 mmol/LNOMS HealthcareSodium [Moles/Vol]136 mmol/L136 - 145 mmol/LNOMS HealthcareTBH EGFR- NON AF ANGOLAN>6060 - PINFNOMS HealthcareUrea nitrogen [Mass/Vol]14.0 mg/dL7.0 - 18.0 mg/dLNOMS HealthcareUrea nitrogen/Creatinine [Mass ratio]16.7 mg/mgNOMS HealthcareCLINISYNCNOMS HealthcareXR CHEST 2Von 48-68-2890[address] [address] XRay Report Signed Patient: RADHA MENDOZA MR#: [id number] : 1975 Acct:[id number] Age/Sex: 47 / F ADM Date: 04/28/23 Loc: PST Attending Dr: Reza Mendez D.O. Ordering Physician: Reza Mendez D.O. Date of Service: 04/28/23 Procedure(s): XR chest 2V Accession Number(s): [id number] cc: Reza Mendez D.O.; DONNIE KAMINSKI M.D. [address] [place] [address] Patient Name: RADHA MENDOZA MRN: [facility]:[id number] date: 1975 Sex: F Assigned Patient Location: [facility] Current Patient Location: [facility] Accession/Order Number: [id number] Exam Date: 04/28/2023 13:15 Report Date: 04/28/2023 13:48 At the request of: REZA MENDEZ Procedure: XR chest 2V EXAMINATION: XR chest 2V HISTORY: Preop exam COMPARISON: No relevant comparison available. TECHNIQUE: PA and lateral FINDINGS: LUNGS: No significant pulmonary parenchymal abnormalities. VASCULATURE: No increased pulmonary vasculature. PLEURA: No pneumothorax, effusion, or pleural thickening. CARDIAC: No cardiomegaly or cardiac silhouette abnormality. MEDIASTINUM: No visible mass or adenopathy. BONES: No fracture or visible bone lesion. OTHER: Negative. XR/XR chest 2V IMPRESSION: No acute cardiopulmonary process Electronically authenticated by: AGUSTIN STEPHENSON Date: 04/28/2023 13:48 Dictated By: Agustin Stephenson M.D. Signed By: 04/28/23 7383 DD/ 1343 TD/TT: Social Secretary:TBHRadiology, Radiologist, MD - 04/28/2023 [place] [address] XRay Report Signed Patient: RADHA MENDOZA MR#: [id number] : 1975 Acct:[id number] Age/Sex: 47 / F ADM Date: 04/28/23 Loc: PST Attending Dr: Reza Mendez D.O. Ordering Physician: Reza Mendez D.O. Date of Service: 04/28/23 Procedure(s): XR chest 2V Accession Number(s): [id number] cc: Reza Mendez D.O.; DONNIE KAMINSKI M.D. [place] [id number] Patient Name: RADHA MENDOZA MRN: [id number] date: 1975 Sex: F Assigned Patient Location: [facility] Current Patient Location: [facility] Accession/Order Number: [id number] Exam Date: 04/28/2023 13:15 Report Date: 04/28/2023 13:48 At the request of: REZA MENDEZ Procedure: XR chest 2V EXAMINATION: XR chest 2V HISTORY: Preop exam COMPARISON: No relevant comparison available. TECHNIQUE: PA and lateral FINDINGS: LUNGS: No significant pulmonary parenchymal abnormalities. VASCULATURE: No increased pulmonary vasculature. PLEURA: No pneumothorax, effusion, or pleural thickening. CARDIAC: No cardiomegaly or cardiac silhouette abnormality. MEDIASTINUM: No visible mass or adenopathy. BONES: No fracture or visible bone lesion. OTHER: Negative. XR/XR chest 2V IMPRESSION: No acute cardiopulmonary process Electronically authenticated by: AGUSTIN STEPHENSON Date: 04/28/2023 13:48 Dictated By: Agustin Stephenson M.D. Signed By: 04/28/23 1353 DD/ 1348 TD/TT: Social Secretary: ANH HealthcareRadiology Study observation (narrative)NOMS HealthcareXR CHEST 2V Ordered By: Radiologist Radiology on [id number] Work Phone: US PELVIS W/ TRANSVAGINALon [phone] [address] Ultrasound Report Signed Patient: RADHA MENDOZA MR#: [id number] : 1975 Acct:[id number] Age/Sex: 47 / F ADM Date: 04/10/23 Loc: US Attending Dr: Reza Mendez D.O. Ordering Physician: Reza Mendez D.O. Date of Service: 04/10/23 Procedure(s): US pelvis w/ transvaginal Accession Number(s): [id number] cc: Reza Mendez D.O.; DONNIE KAMINSKI M.D. [address] [place] [id number] Patient Name: RADHA MENDOZA MRN: [facility]:[id number] date: 1975 Sex: F Assigned Patient Location: US Current Patient Location: US Accession/Order Number: [id number] Exam Date: 04/10/2023 12:52 Report Date: 04/10/2023 14:43 At the request of: REZA MENDEZ Procedure: US pelvis w/ transvaginal EXAM: US pelvis w/ transvaginal HISTORY: Menorrhagia with irregular cycle N92.1 COMPARISON: None. TECHNIQUE: Real-time transabdominal and transvaginal imaging of the pelvis. Findings: The uterus measures 9.9 x 5.5 x 6.5 cm. No intrauterine mass. There is scarring involving the anterior uterus from prior section. The endometrium is 0.9 cm thick. No fluid within the endometrial canal. Trace amount of fluid within the cervical canal. The right ovary is not visualized due to overlying bowel gas. The left ovary measures 2.9 x 2.0 x 2.2 cm and is unremarkable. Blood flow is identified. No adnexal mass or free pelvic fluid. US/US pelvis w/ transvaginal IMPRESSION: 1. Trace fluid within the cervical canal. 2. Nonvisualization of the right ovary. Electronically authenticated by: WILFRIDO HERRERA Date: 04/10/2023 14:43 Dictated By: Wilfrido Herrera M.D. Signed By: 04/10/23 1445 DD/ 144 TD/TT: Social Secretary:TUNDEHRadiology, Radiologist, MD - 04/10/2023 [place] [address] Ultrasound Report Signed Patient: RADHA MENDOZA MR#: [id number] : 1975 Acct:[id number] Age/Sex: 47 / F ADM Date: 04/10/23 Loc: US Attending Dr: Reza Mendez D.O. Ordering Physician: Reza Mendez D.O. Date of Service: 04/10/23 Procedure(s): US pelvis w/ transvaginal Accession Number(s): [id number] cc: Reza Mendez D.O.; DONNIE KAMINSKI M.D. [place] [id number] Patient Name: RADHA MENDZOA MRN: [id number] date: 1975 Sex: F Assigned Patient Location: US Current Patient Location: US Accession/Order Number: [id number] Exam Date: 04/10/2023 12:52 Report Date: 04/10/2023 14:43 At the request of: REZA MENDEZ Procedure: US pelvis w/ transvaginal EXAM: US pelvis w/ transvaginal HISTORY: Menorrhagia with irregular cycle N92.1 COMPARISON: None. TECHNIQUE: Real-time transabdominal and transvaginal imaging of the pelvis. Findings: The uterus measures 9.9 x 5.5 x 6.5 cm. No intrauterine mass. There is scarring involving the anterior uterus from prior section. The endometrium is 0.9 cm thick. No fluid within the endometrial canal. Trace amount of fluid within the cervical canal. The right ovary is not visualized due to overlying bowel gas. The left ovary measures 2.9 x 2.0 x 2.2 cm and is unremarkable. Blood flow is identified. No adnexal mass or free pelvic fluid. US/US pelvis w/ transvaginal IMPRESSION: 1. Trace fluid within the cervical canal. 2. Nonvisualization of the right ovary. Electronically authenticated by: WILFRIDO HERRERA Date: 04/10/2023 14:43 Dictated By: Wilfrido Herrera M.D. Signed By: 04/10/23 1445 DD/ 42 TD/TT: Social Secretary: ANH HealthcareRadiology Study observation (narrative)ANH HenryUS PELVIS W/ TRANSVAGINALOrdered By: Radiologist Radiology on [id number] [employer] Work Phone: cBCon [phone] distribution width (RBC) [Ratio]15.0 %High11.8-14.4Mer[facility] Yelvington HospitalComment on above:Performed By: #### CBC #### [facility] [address] [facility] [place] [address] Production Repairer: Harjit Flores MDHematocrit (Bld) [Volume fraction]39.9 %Normal 36.3-47.1MNewport Community HospitalComment on above:Performed By: #### CBC #### [facility] [address] [place] [address] Production Repairer: Harjit Flores MDHemoglobin (Bld) [Mass/Vol]13.2 g/dLNormal 11.9-15.1Mchildren's hospital of columbusy [facility] ServicesComcorewell health butterworth hospital on above:Performed By: #### CBC #### [facility] [address] [place] [address] Production Repairer: DANY MurphyCH (RBC) [Entitic mass]29.9 zbPiibvm08.2-33.5 [facility] For RehabilitationComment on above:Performed By: #### CBC #### [facility] [address] [place] [address] Production Repairer: YUSEF MurphyC (RBC) [Mass/Vol]33.1 g/wRJzhhes60.4-34.8 [facility] RehabilitationComment on above:Performed By: #### CBC #### [facility] [address] [place] [address] Production Repairer: DANY MurphyCV (RBC) [Entitic vol]90.3 yCMpcgqq71.6-102.9 [facility] RehabilitationComcorewell health butterworth hospital on above:Performed By: #### CBC #### [facility] [address] [place] [address] Production Repairer: Harjit Sandra, MDNRBC Automated0.0 per 100 WBCNormal0.0[facility] For RehabilitationComcorewell health butterworth hospital on above:Performed By: #### CBC #### [facility] [address] [place] [address]. [place] [address] Production Repairer: Arina Murphy mean volume (Bld) [Entitic vol]10.4 fL Normal8.1-13.5[facility] For RehabilitationComcorewell health butterworth hospital on above:Performed By: #### CBC #### [facility] [address] [place] [address]. [place] [address] Production Repairer: Florian Murphy (Bld) [#/Vol]209 10*3/uEGldyyc318-650 [facility] RehabilitationComcorewell health butterworth hospital on above:Performed By: #### CBC #### [facility] [address] [place] [address]. [place] [address] Production Repairer: TONYA Murphy (Bld) [#/Vol]4.42 10*6/uLNormal3.95-5.11 [facility] RehabilitationComcorewell health butterworth hospital on above:Performed By: #### CBC #### [facility] [address] [place] [address]. [place] [address] Production Repairer: Harjit Flores MDWBC (Bld) [#/Vol]7.1 10*3/uLNormal3.5-11.3MNewport Community HospitalComcorewell health butterworth hospital on above:Performed By: #### CBC #### [facility] [address] [place] [address] Production Repairer: Harjit Flores MDErythrocyte distribution width (RBC) [Ratio] 15.0 %High11.8 - 14.4 %[facility] HEALTHHematocrit (Bld) [Volume fraction]39.9 %36.3 - 47.1 %[facility] HOSPITALHemoglobin (Bld) [Mass/Vol] 13.2 g/dL11.9 - 15.1 g/dLBON WRIGHT-PATTERSON MEDICAL CENTERInterpretation and review of laboratory resultsAbnormalCARILION ROANOKE COMMUNITY HOSPITALH (RBC) [Entitic mass]29.9 pg25.2 - 33.5 pgCARILION ROANOKE COMMUNITY HOSPITALHC (RBC) [Mass/Vol]33.1 g/dL28.4 - 34.8 g/dLBON KETTERING HEALTH SPRINGFIELDV (RBC) [Entitic vol]90.3 fL82.6 - 102.9 fL [facility] DOCTORS' HOSPITALNucleated RBC/100 WBC (Bld) [Ratio]0.0 %0.0 per 100 WBC [facility] DOCTORS' HOSPITALPlatelet mean volume (Bld) [Entitic vol]10.4 fL8.1 - 13.5 fLRETREAT DOCTORS' HOSPITALPlatelets (Bld) [#/Vol]209 10*3/uLRETREAT DOCTORS' HOSPITALRBC (Bld) [#/Vol]4.42 10*6/uL3.95 - 5.11 m/uLRETREAT DOCTORS' HOSPITALWBC other (Bld) [#/Vol]7.1[facility] POCT urine pregnancyon 79-62-9093Hkcz HCG ( test) Ql (U)Negative NEGATIVERETREAT DOCTORS' HOSPITALComment on above:Specimens with hCG levels near the threshold of the test (25 mIU/mL) may give a negative or indeterminate result. In such cases, another test should be performed with a new specimen in 48-72 hours. If early is suspected clinically in this setting, correlation with quantitative serum b-hCG level is suggested. [facility] HOSPITALBasic Metabolic Profon 93-98-5652Yxexr gap [Moles/Vol]10 mmol/LNormal9-17Mer[facility] Health ServicesComment on above:Performed By: #### GLYHGB #### [facility] [address] [place] [address] Production Repairer: Saw Elizondo MD #### BMP #### [facility] [address] [place] [address] Production Repairer: Harjit Flores MDBUN/CRE Vvqtx78Nxxbib2-21YsituCincinnati Shriners Hospital on above:Performed By: #### GLYHGB #### [address] [address] Production Repairer: Saw Elizondo MD #### BMP #### [facility] [address] [place] [address] Production Repairer: Harjit Flores MDCalcium [Mass/Vol]9.3 mg/dLNormal8.6-10.4[facility] RehabilitationComcorewell health butterworth hospital on above:Performed By: #### GLYHGB #### [address] [address] Production Repairer: Saw Elizondo MD #### BMP #### [facility] [address] [place] [address] Production Repairer: ROSELINE Murphyhloride [Moles/Vol]103 mmol/MUwrlhm97-805JgvdoCincinnati Shriners Hospital on above:Performed By: #### GLYHGB #### [address] [address] Production Repairer: Saw Elizondo MD #### BMP #### [facility] [address] [place] [address] Production Repairer: Harjit Flores MDCO2 [Moles/Vol]24 mmol/PVuzmal46-40EsuvhCincinnati Shriners Hospital on above:Performed By: #### GLYHGB #### [address] [address] Production Repairer: Saw Elizondo MD #### BMP #### [facility] [address] [place] [address] Production Repairer: ROSELINE Murphyreatinine [Mass/Vol]0.8 mg/dLNormal0.5-0.9 [facility] RehabilitationComcorewell health butterworth hospital on above:Performed By: #### GLYHGB #### [address] [address] Production Repairer: Saw Elizondo MD #### BMP #### [facility] [address] [place] [address] Production Repairer: Harjit Flores MDGFR/1.73 sq M.predicted among non-blacks MDRD (S/P/Bld) [Vol rate/Area]mL/min/{1.73_m2}Normal>60[facility] For RehabilitationComcorewell health butterworth hospital on above:Result Comment: These results are not intended for [...] or following therapy that affects renal tubular secretion.Performed By: #### GLYHGB #### [address] [address] Production Repairer: Saw Elizondo MD #### BMP #### [facility] [address] [place] [address] Production Repairer: Harjit Flores MDGlucose [Mass/Vol]126 mg/fYXxmi76-05KxsnyNewport Community HospitalComcorewell health butterworth hospital on above:Performed By: #### GLYHGB #### [address] [address] Production Repairer: Saw Elizondo MD #### BMP #### [facility] [address] [place] [address] Production Repairer: NEELIMA Murphyotassium [Moles/Vol]4.0 mmol/LNormal3.7-5.3 [facility] For RehabilitationComment on above:Performed By: #### GLYHGB #### [place] [address] [place] [address] Production Repairer: Saw Elizondo MD #### BMP #### [facility] [address] [place] [address] Production Repairer: GLADIS Murphyodium [Moles/Vol]137 mmol/WZgnqif147-315UpybgChildren'S Hospital For RehabilitationComment on above:Performed By: #### GLYHGB #### [address] [address] Production Repairer: Saw Elizondo MD #### BMP #### [facility] [address] [place] [address] Production Repairer: Harjit Flores MDUrea nitrogen [Mass/Vol]11 mg/dLNormal6-20[facility] For RehabilitationComment on above:Performed By: #### GLYHGB #### [address] [address] Production Repairer: Saw Elizondo MD #### BMP #### [facility] [address] [place] [address] Production Repairer: Taty Murphy [id number] distribution width (RBC) [Ratio]15.0 %High11.8-14.4[facility] For RehabilitationComment on above: Performed By: #### CBC #### [facility] [address] [place] [address] Production Repairer: Harjit Flores MDHematocrit (Bld) [Volume fraction]40.2 %Normal 36.3-47.1[facility] Universal Health ServicesComment on above:Performed By: #### CBC #### [facility] [address] [facility] [place] [address] Production Repairer: Harjit Flores MDHemoglobin (Bld) [Mass/Vol]13.3 g/dLNormal 11.9-15.1MNewport Community HospitalComment on above:Performed By: #### CBC #### [facility] [address] [place] [address] Production Repairer: DANY MurphyCH (RBC) [Entitic mass]29.6 jtBfpszk26.2-33.5 [facility] RehabilitationComment on above:Performed By: #### CBC #### [facility] [address] [place] [address] Production Repairer: YUSEF MurphyC (RBC) [Mass/Vol]33.1 g/wDSwltak75.4-34.8 [facility] RehabilitationComment on above:Performed By: #### CBC #### [facility] [address] [place] [address] Production Repairer: DANY MurphyCV (RBC) [Entitic vol]89.3 fFBvjgoi90.6-102.9 [facility] RehabilitationComcorewell health butterworth hospital on above:Performed By: #### CBC #### [facility] [address] [place] [address] Production Repairer: Harjit Flores MDNRBC Automated0.0 per 100 WBCNormal0.0[facility] For RehabilitationComcorewell health butterworth hospital on above:Performed By: #### CBC #### [facility] [address] [place] [address] Production Repairer: Cristino Murphytelet mean volume (Bld) [Entitic vol]9.9 fL Normal8.1-13.5[facility] For RehabilitationComcorewell health butterworth hospital on above:Performed By: #### CBC #### [facility] [address] [place] [address] Production Repairer: Florian Murphy (Bld) [#/Vol]237 10*3/zVFmbfsq481-543 [facility] RehabilitationComcorewell health butterworth hospital on above:Performed By: #### CBC #### [facility] [address] [place] [address] Production Repairer: JENNIFER MurphyBC (Bld) [#/Vol]4.50 10*6/uLNormal3.95-5.11 [facility] RehabilitationComcorewell health butterworth hospital on above:Performed By: #### CBC #### [facility] [address] [place] [address] Production Repairer: ELLYN MurphyBC (Bld) [#/Vol]9.6 10*3/uLNormal3.5-11.3MNewport Community HospitalComcorewell health butterworth hospital on above:Performed By: #### CBC #### [facility] [address] [place] [address] Production Repairer: Harjit Flores MDHemoglobin A1Con 47-23-7582Cekpord [Mass/Vol] 123 mg/dLNoOhioHealth Shelby HospitalComcorewell health butterworth hospital on above:Result Comment: The ADA and AACC recommend providing the estimated average glucose result to permit better patient understanding of their HBA1c result.Performed By: #### GLYHGB #### [facility] [address] [place] [address] Production Repairer: Saw Elizondo MD #### BMP #### [facility] [address] [place] [address] Production Repairer: Harjit Flores MDHbA1c (Bld) [Mass fraction]5.9 %Normal4.0-6.0 [facility] For RehabilitationComment on above:Performed By: #### GLYHGB #### [facility] [address] [place], [place] [address] Production Repairer: Saw Elizondo MD #### BMP #### [facility] [address], [place] [address] Production Repairer: Harjit Flores MDGLYCOHEMOGLOBIN A1Con 71-28-5274COO RECOMMENDATIONSEE BELOWPremier Health Miami Valley HospitalComment on above:Result Comment: ADA RECOMMENDED LIMIT 4.0 - 6.0 ADA THERAPEUTIC TARGET < 7.0 ACTION SUGGESTED > 7.0Performed By: #### DATA1C #### [facility] [address] [place] [address] [address] Brock EliasGlucose [Mass/Vol]128 mg/dLPremier Health Miami Valley HospitalComment on above:Performed By: #### DATA1C #### [facility] [address] [place] [address] [address] Brock EliasHbA1c (Bld) [Mass fraction]6.1 %Normal4.5-6.2The [facility] Medical CenterComment on above:Performed By: #### DATA1C #### [facility] [address] [place] [address] [address] Brock Hines ALISA DOP LEG RTon 90-05-1509HW ALISA DOP LEG RTEXAM: US ALISA DOP LEG RT HISTORY: Cellulitis [...] deep venous thrombus. Electronically authenticated by: WILFRIDO HERRERA Date: 2022-09-15 09:06[facility] AUTO DIFFon 26-74-2082PZEK #0.0 103/ulNormal0.0-0.1The [facility] CenterComment on above:Performed By: #### CBC #### [facility] [address] [place] [address] Dr. Brock EliasBasophils/100 WBC (Bld)0.4 %Normal0.2-2.0The [facility] Comment on above:Performed By: #### CBC #### [facility] [address] [place] [address] Dr. Brock Maddox #0.2 103/ulNormal0.0-0.7The [facility] CenterComment on above: Performed By: #### CBC #### [facility] [address] [place] [address] Dr. Brock Carrilloosinophils/100 WBC (Bld)2.1 %Normal0.9-7.0The [facility] Comment on above:Performed By: #### CBC #### [facility] [address] [place] [address] Dr. Brock Carrillorythrocyte distribution width (RBC) [Ratio]15.2 %Critically high 11.0-15.0The [facility] CenterComment on above:Performed By: #### CBC #### [facility] [address] [place] [address] Dr. Brock EliasHematocrit (Bld) [Volume fraction]40.0 %Jdaubt50.0-48.0The [facility] CenterComment on above:Performed By: #### CBC #### [facility] [address] [place] [address] Dr. Brock EliasHemoglobin (Bld) [Mass/Vol]13.4 g/cZYmzvxu56.0-16.0The [facility] CenterComment on above:Performed By: #### CBC #### [facility] [address] [place] [address] Dr. Brock Manzo #0.02 10e3/ulNormal0.00-0.03The [facility] CenterComment on above:Performed By: #### CBC #### [facility] [address] [place] [address] Dr. Brock Manzo %0.3 %Normal0.0-0.5The [facility] CenterComment on above: Performed By: #### CBC #### [facility] [address] [place] [address] Dr. Brock Narayan #1.9 103/ulNormal1.2-3.8The [facility] CenterComment on above:Performed By: #### CBC #### [facility] [address] [place] [address] Dr. Brock Tyhocytes/100 WBC (Bld)26.7 %Qkiahh44.5-60.0The [facility] CenterComment on above:Performed By: #### CBC #### [facility] [address] [place] [address] Dr. Brock Kauffman DIFF REQNONormalThe [facility] Medical CenterComment on above: Performed By: #### CBC #### [facility] [address] [place] [address] Dr. Brock Flood (RBC) [Entitic mass]28.6 wxVaorbb19.7-34.0The [facility] CenterComment on above:Performed By: #### CBC #### [facility] [address] [place] [address] Dr. Brock Barnhart (RBC) [Mass/Vol]33.5 g/zQZabfwo06.9-35.2The [facility] CenterComment on above:Performed By: #### CBC #### [facility] [address] [place] [address] Dr. Brock Sanon (RBC) [Entitic vol]85.5 vTAjslbf81.0-99.0The [facility] CenterComment on above:Performed By: #### CBC #### [facility] [address] [place] [address] Dr. Brock Yo #0.4 103/ulNormal0.3-0.8The [facility] CenterComment on above:Performed By: #### CBC #### [facility] [address] [place] [address] Dr. Yilan ChangMonocytes/100 WBC (Bld)5.3 %Normal1.7-12.0The [facility] Comment on above:Performed By: #### CBC #### [facility] [address] [place] [address] Dr. Brock Bermudez #4.6 103/ulNormal1.4-6.5The [facility] CenterComment on above:Performed By: #### CBC #### [facility] [address] [place] [address] Dr. Brock Lauutrophils/100 WBC (Bld)65.2 %Emkqrl38.0-75.0The [facility] CenterComment on above:Performed By: #### CBC #### [facility] [address] [place] [address] Dr. Brock Wanglet mean volume (Bld) [Entitic vol]9.9 fLNormal9.5-13.5The [facility] CenterComment on above:Performed By: #### CBC #### [facility] [address] [place] [address] Dr. Brock EliasPLT225 103/ojHyhxwx190-983Kpb [facility] CenterComment on above: Performed By: #### CBC #### [facility] [address] [place] [address] Dr. Brock EliasRBC4.68 106/ulNormal4.20-5.40The [facility] CenterComment on above:Performed By: #### CBC #### [facility] [facility] [address] [place] [address] Dr. Brock EliasWBC7.0 103/ulNormal4.0-11.0The [facility] CenterComment on above: Performed By: #### CBC #### [facility] [address] [place] [address] Dr. Brock Higginbotham-DIMERon 36-91-3369T-DIMER2.02 mg/L FEUCritically high<=0.59The [facility] CenterComment on above:Performed By: #### HIV12 #### [facility] [address] [place] [address] Dr. Brock EliasD-DIMER COMMENTSSEE [facility]tering Health DaytonComment on above:Result Comment: Increases in D-Dimer concentration observed with thromboembolic events [...] stress, and generalized hospitalization. Performed By: #### HIV12 #### [facility] [address] [place] [address] Dr. Brock EliasLACTATE/LACTIC ACIDon 35-60-3537Kvspbyh [Moles/Vol]0.9 mmol/L Normal0.4-2.0[facility] PrebleComment on above:Performed By: #### LACT #### [facility] [address] [place] [address] Dr. Brock EliasPROF CHEM 8 (BAS METB)on 19-24-9713Kpvvm gap [Moles/Vol]8.7 mmol/LNormalKettering Health PrebleComment on above:Performed By: #### BMP #### [facility] [address] [place] [address] Dr. Brock EliasCalcium [Mass/Vol]8.9 mg/dLNormal8.5-10.1[facility] Comment on above:Performed By: #### BMP #### [facility] [address] [place] [address] Dr. Brock EliasChloride [Moles/Vol]105 mmol/BXtpohj08-706TqzKettering Health Preble Comment on above:Performed By: #### BMP #### [facility] [address] [place] [address] Dr. Brock EliasCO2 [Moles/Vol]29.3 mmol/BMfnmyv84.0-32.0[facility] Comment on above:Performed By: #### BMP #### [facility] [address] [place] [address] Dr. Brock EliasCreatinine [Mass/Vol]0.81 mg/dLNormal0.55-1.02The [facility] CenterComment on above:Performed By: #### BMP #### [facility] [address] [place] [address] Dr. Brock CarrilloGFR-AF ANGOLAN>60Normal>=60The [facility] CenterComment on above:Performed By: #### BMP #### [facility] [address] [address] [address] Brock CarrilloGFR-NON AF ANGOLAN>60Normal>=60The [facility] CenterComment on above:Performed By: #### BMP #### [facility] [address] [place] [address] Dr. Brock EliasGlucose [Mass/Vol]106 mg/mPUyyrvf48-000Vvx [facility] Comment on above:Performed By: #### BMP #### [facility] [address] [place] [address] Dr. Brock EliasPotassium [Moles/Vol]4.0 mmol/LNormal3.5-5.1The [facility] Comment on above:Performed By: #### BMP #### [facility] [address] [place] [address] Dr. Brock EliasSodium [Moles/Vol]139 mmol/XPxpdfc508-894Hcv [facility] Comment on above:Performed By: #### BMP #### [facility] [address] [place] [address] Dr. Brock EliasUrea nitrogen [Mass/Vol]11.0 mg/dLNormal7.0-18.0The [facility] CenterComment on above:Performed By: #### BMP #### [facility] [address] [place] [address] Dr. Brock Brito nitrogen/Creatinine [Mass ratio]13.6 mg/mgNormalThe [facility] CenterComment on above:Performed By: #### BMP #### [facility] [address] [place] [address] Dr. Brock Mcclendon 1 AND 2 WITH REFLEXon 00-99-1547HMT Screen 4th Generation wRfxNon-ReactiveNormalNon ReactiveThe [facility] CenterComment on above:Result Comment: HIV Negative HIV-1/HIV-2 antibodies and HIV-1 p24 antigen were NOT detected. There is no laboratory evidence of HIV infection.Performed By: #### HIV12 #### [facility] [address] [address] [address] Brock EliasXR ELBOW MARTHA MIN 3 VIEWSon 09-14-9483GK ELBOW MARTHA MIN 3 VIEWS EXAMINATION: XR [...] Electronically authenticated by: GILL MORENO Date: 2022-08-13 10:47[facility] HospitalXR HAND MARTHA MIN 3Von 43-66-5999FR HAND MARTHA MIN 3VEXAMINATION: XR HAND MARTHA MIN 3V HISTORY: Joint [...] Electronically authenticated by: GILL MORENO Date: 2022-08-13 10:45NoOur [facility] - AndersonXR KNEE MARTHA 3 Von 77-94-7221FS KNEE MARTHA 3 VEXAM: XR KNEE MARTHA 3 V HISTORY: Joint [...] Electronically authenticated by: MELISSA GATES Date: 2022-08-12 17:40[facility] HospitalXR WRIST MARTHA MIN 3 Von 09-56-6403NP WRIST MARTHA MIN 3 VEXAM: XR WRIST MARTHA MIN 3 V HISTORY: [...] Electronically authenticated by: MELISSA GATES Date: 2022-08-12 17:26[facility] HospitalANA EIA W/REFLEX 9 BIOMARKERSon 80-29-9643UDK DirectNegative NormalNegativeThe [facility] CenterComment on above:Performed By: #### HIV12 #### [facility] [address] [place] [address] Dr. Brock EliasC-REACTIVE PROTEINS (HS)on 93-46-8432F-Reactive Protein, Cardiac 4.28 mg/LCritically high0.00-3.00The [facility] CenterComment on above:Result Comment: Relative Risk for Future Cardiovascular Event Low <1.00 Average 1.00 - 3.00 High >3.00Performed By: #### CRPHS #### [facility] [address] [address] [address] Brock EliasCYCLIC CITRULLINATED PEPTIDE AB (CCP)on 88-84-9256JKK Antibodies IgG/IgA6 unitsNormal0-19The [facility] on above:Result Comment: Negative <20 Weak positive 20 - 39 Moderate positive 40 - 59 Strong positive >59Performed By: #### RF #### [facility] [address] [place] [address] Dr. Brock EliasRHEUMATOID FACTORon 22-10-1846PS Latex Turbid.<10.0Normal<14.0The [facility] on above:Performed By: #### RF #### [facility] [address] [place] [address] Dr. Brock EliasGLYCOHEMOGLOBIN A1Con 81-68-6484CBY RECOMMENDATIONSEE BELOWNormal The [facility] CenterComcorewell health butterworth hospital on above:Result Comment: ADA RECOMMENDED LIMIT 4.0 - 6.0 ADA THERAPEUTIC TARGET < 7.0 ACTION SUGGESTED > 7.0Performed By: #### CMP #### [facility] [address] [place] [address] Dr. Brock EliasGlucose [Mass/Vol]126 mg/dLNormalThe [facility] CenterComcorewell health butterworth hospital on above:Performed By: #### CMP #### [facility] [address] [place] [address] Dr. Brock EliasHbA1c (Bld) [Mass fraction]6.0 %Normal4.5-6.2The [facility] on above:Performed By: #### CMP #### [facility] [address] [place] [address] Dr. Brock EliasPROF 14(COMP METB)on 18-60-7185Aghcoqb [Mass/Vol]3.9 g/dLNormal 3.4-5.0The [facility] on above:Performed By: #### CMP #### [facility] [address] [place] [address] Dr. Brock EliasAlbumin/Globulin [Mass ratio]1.1 {ratio}NormalThe [facility] CenterComcorewell health butterworth hospital on above:Performed By: #### CMP #### [facility] [address] [address] [address] Brock Lyles [Catalytic activity/Vol]88 U/NEkdtfi18-962Iey [facility] CenterComment on above:Performed By: #### CMP #### [facility] [address] [address] [address] Brock RubioT [Catalytic activity/Vol]28 U/RUhnahr43-61Ujq [facility] CenterComment on above:Performed By: #### CMP #### [facility] [address] [address] [address] Brock Jaramilloon gap [Moles/Vol]13.8 mmol/LNormalThe [facility] Comment on above:Performed By: #### CMP #### [facility] [address] [place] [address] Dr. Brock EliasAST [Catalytic activity/Vol]31 U/BNfokwy06-66Fyv [facility] CenterComment on above:Performed By: #### CMP #### [facility] [address] [place] [address] Dr. Brock EliasBilirubin [Mass/Vol]0.6 mg/dLNormal0.2-1.0The [facility] Comment on above:Performed By: #### CMP #### [facility] [address] [place] [address] Dr. Brock EliasCalcium [Mass/Vol]8.9 mg/dLNormal8.5-10.1The [facility] Comment on above:Performed By: #### CMP #### [facility] [address] [place] [address] Dr. Brock EliasChloride [Moles/Vol]104 mmol/HGhkpyo19-368Xam [facility] Comment on above:Performed By: #### CMP #### [facility] [address] [address] [address] Brock EliasCO2 [Moles/Vol]28.5 mmol/KHamqdg36.0-32.0The [facility] Comment on above:Performed By: #### CMP #### [facility] [address] [address] [address] Brock Keenanatinine [Mass/Vol]0.76 mg/dLNormal0.55-1.02The [facility] CenterComment on above:Performed By: #### CMP #### [facility] [address] [place] [address] Dr. Brock CarrilloGFR-AF ANGOLAN>60Normal>=60The [facility] CenterComment on above:Performed By: #### CMP #### [facility] [address] [address] [address] Brock CarrilloGFR-NON AF ANGOLAN>60Normal>=60The [facility] CenterComment on above:Performed By: #### CMP #### [facility] [address] [place] [address] Dr. Brock EliasGlobulin (S) [Mass/Vol]3.7 g/dLNormalThe [facility] CenterComment on above:Performed By: #### CMP #### [facility] [address] [place] [address] Dr. Brock EliasGlucose [Mass/Vol]107 mg/dLCritically nxdf52-402Nzt [facility] CenterComment on above:Performed By: #### CMP #### [facility] [address] [place] [address] Dr. Brock EliasPotassium [Moles/Vol]4.3 mmol/LNormal3.5-5.1[facility] Comment on above:Performed By: #### CMP #### [facility] [address] [place] [address] Dr. Brock EliasProtein [Mass/Vol]7.6 g/dLNormal6.4-8.2[facility] Comment on above:Performed By: #### CMP #### [facility] [address] [place] [address] Dr. Brock EliasSodium [Moles/Vol]142 mmol/NLrtwkh522-746Mdl [facility] Comment on above:Performed By: #### CMP #### [facility] [address] [place] [address] Dr. Brock EliasUrea nitrogen [Mass/Vol]15.0 mg/dLNormal7.0-18.0The [facility] CenterComment on above:Performed By: #### CMP #### [facility] [address] [place] [address] Dr. Brock EliasUrea nitrogen/Creatinine [Mass ratio]19.7 mg/mgNormalThe [facility] CenterComment on above:Performed By: #### CMP #### [facility] [address] [place] [address] Dr. Brock Hernandez RATE WESTERGRENon 23-20-1523CWA RATE29 mm/hrCritically high <=20The [facility] CenterComment on above:Performed By: #### RF #### [facility] [address] [place] [address] Dr. Brock Fabian 14(COMP METB)on 18-03-4058Igwynfm [Mass/Vol]3.6 g/dLNormal 3.4-5.0The [facility] CenterComment on above:Performed By: #### CMP #### [facility] [address] [place] [address] Dr. Brock EliasAlbumin/Globulin [Mass ratio]1.1 {ratio}NormalThe [facility] CenterComment on above:Performed By: #### CMP #### [facility] [address] [place] [address] Dr. Brock Lyles [Catalytic activity/Vol]83 U/TQmosvc28-609Ida [facility] CenterComment on above:Performed By: #### CMP #### [facility] [address] [place] [address] Dr. Brock Perdomo [Catalytic activity/Vol]22 U/ZOlgfwj33-75Afa [facility] Hospitalment on above:Performed By: #### CMP #### [facility] [address] [place] [address] Dr. Brock Balbuena gap [Moles/Vol]12.8 mmol/LNormalThe [facility] on above:Performed By: #### CMP #### [facility] [address] [place] [address] Dr. Brock EliasAST [Catalytic activity/Vol]17 U/DXwzmcr50-59Dwd [facility] CenterComment on above:Performed By: #### CMP #### [facility] [address] [address] [address] Brock EliasBilirubin [Mass/Vol]0.5 mg/dLNormal0.2-1.0The [facility] Comment on above:Performed By: #### CMP #### [facility] [address] [address] [address] Brock EliasCalcium [Mass/Vol]8.5 mg/dLNormal8.5-10.1The [facility] Comment on above:Performed By: #### CMP #### [facility] [address] [place] [address] Dr. Brock EliasChloride [Moles/Vol]104 mmol/TSdtbef40-707Yux [facility] Comment on above:Performed By: #### CMP #### [facility] [address] [place] [address] Dr. Brock EliasCO2 [Moles/Vol]26.3 mmol/HVzzzem27.0-32.0The [facility] Comment on above:Performed By: #### CMP #### [facility] [address] [place] [address] Dr. Brock EliasCreatinine [Mass/Vol]0.79 mg/dLNormal0.55-1.02The [facility] CenterComment on above:Performed By: #### CMP #### [facility] [address] [place] [address] Dr. Brock CarrilloGFR-AF ANGOLAN>60Normal>=60The [facility] CenterComment on above:Performed By: #### CMP #### [facility] [address] [place] [address] Dr. Brock CarrilloGFR-NON AF ANGOLAN>60Normal>=60The [facility] CenterComment on above:Performed By: #### CMP #### [facility] [address] [place] [address] Dr. Brock EliasGlobulin (S) [Mass/Vol]3.3 g/dLNormalThSt. Mary's Medical Center, Ironton CampusComment on above:Performed By: #### CMP #### [facility] [address] [address] [address] Brock EliasGlucose [Mass/Vol]153 mg/dLCritically ocqe38-536Ras [facility] CenterComment on above:Performed By: #### CMP #### [facility] [address] [address] [address] Brock EliasPotassium [Moles/Vol]4.1 mmol/LNormal3.5-5.1The [facility] Comment on above:Performed By: #### CMP #### [facility] [address] [address] [address] Brock EliasProtein [Mass/Vol]6.9 g/dLNormal6.4-8.2The [facility] Comment on above:Performed By: #### CMP #### [facility] [address] [address] [address] Brock EliasSodium [Moles/Vol]139 mmol/RDaelxr607-577Rqt [facility] Comment on above:Performed By: #### CMP #### [facility] [address] [address] [address] Brock EliasUrea nitrogen [Mass/Vol]12.0 mg/dLNormal7.0-18.0The [facility] CenterComment on above:Performed By: #### CMP #### [facility] [address] [place] [address] Dr. Brock EliasUrea nitrogen/Creatinine [Mass ratio]15.2 mg/mgNormalThe [facility] CenterComment on above:Performed By: #### CMP #### [facility] [address] [place] [address] Dr. Brock EliasUS VAC ASST BX BREAST RT W CLIPon [id number] VAC ASST BX BREAST RT W CLIP Begin Addendum #1 COLLECTED DATE/TIME: 06/04/2022 08:21 EST Final Diagnosis Report for [place] ULTRASOUND GUIDED CORE BIOPSY RIGHT BREAST [...] will be provided after pathology results are available.[facility] HospitalMAMMO POST BIOPSY RIGHTon [id number] POST BIOPSY RIGHTPatient: RADHA SANTACRUZ Exam Date: 06/04/2022 : 1975 Gender:F Ordering : DONNIE AGEE Admission #: [id number] Family : Order #: [id number] CLICK HERE TO VIEW EXAM RADIOLOGY REPORT [...] by: Gill Moreno M.D. on 06/09/2022 at 13:27[facility] HospitalCNPNon 06-23-1224IKXJKrclyzvuk ([facility] RADHA SANTACRUZ ([id number]) 1975 F Date Time Provider Department 05/28/22 SUMI LAU During your visit today, we recorded the following information about you: Bandar Romanoheladio 05/28/2022 2:23 PM Signed Pt is being referred by [facility] dx Breast Ca. Per Karina Antunez schedule [...] mouth daily at bedtime. For insomnia - umeclidinium-vilanterol (ANORO ELLIPTA) 62.5-25 mcg/actuation inhaler Inhale 1 Inhalation as instructed once daily. One puff daily - lidocain-me.mhtchou-wpff-tkqay 4.5 %-27.5 %- 0.0325 %-10 % oint Apply to affected area. To bilat knees daily - dextroamphetamine-amphetamine (ADDERALL) 20 mg tablet Take 1 tablet by mouth once daily. - diazePAM (VALIUM) 5 mg tablet Take 1 tablet by mouth as needed. Problem List As Of Date: 05/28/2022 (None) Encounter Status:Closed by BANDAR LAGUNA on [facility]/22[facility] DIAG FUon 78-77-1538IV MAMM RT DIAG FUPatient: RADHA SANTACRUZ Exam Date: 05/28/2022 : 1975 Gender:F Ordering : DONNIE KAMINSKI [employer] Admission #: [id number] Family : Order #: [id number] CLICK HERE TO VIEW EXAM RADIOLOGY REPORT [...] breast cancer at age 38. LOCATION: [facility] BREAST COMPOSITION: Scattered areas fibroglandular [...] by: Gill Moreno M.D. on 05/28/2022 at 12:33[facility] HospitalUS BREAST RIGHT LIMITEDon 01-40-4662UV BREAST RIGHT LIMITEDPatient: RADHA SANTACRUZ Exam Date: 05/28/2022 : 1975 Gender:F Ordering : DONNIE PIÑAC Admission #: [id number] Family : Order #: [id number] CLICK HERE TO VIEW EXAM RADIOLOGY REPORT [...] breast cancer at age 38. LOCATION: [facility] BREAST COMPOSITION: Scattered areas fibroglandular [...] by: Gill Moreno M.D. on 05/28/2022 at 12:33[facility] HospitalXR HAND MARTHA MIN 3Von 10-32-4534FG HAND MARTHA MIN 3VEXAM: XR HAND MARTHA MIN 3V HISTORY: Bilateral hand pain COMPARISON: None. TECHNIQUE: 3 views of each hand FINDINGS: No fracture, dislocation, subluxation or osseous lesion. Joint spaces are normal for patient's age. No visualized erosion or joint effusion. No soft tissue edema. IMPRESSION: Normal hand x-rays Electronically authenticated by: AGUSTIN ADAMSON Date: 2022-05-19 16:32[facility] HospitalXR LSPINE 2_3 VIEWSon 22-30-5754SO LSPINE 2_3 VIEWSEXAM: XR LSPINE 2_3 VIEWS HISTORY: Postoperative back [...] Electronically authenticated by: AGUSTIN ADAMSON Date: 2022-05-19 16:29[facility] HospitalMG MAMM SCREEN 3D MARTHA CADon 51-62-8585BV MAMM SCREEN 3D MARTHA CAD Patient: RADHA SANTACRUZ Exam Date: 04/29/2022 : 1975 Gender:F Ordering : DONNIE KAMINSKI [employer] Admission #: [id number] Family : Order #: [id number] CLICK HERE TO VIEW EXAM RADIOLOGY REPORT [...] breast cancer at age 38. LOCATION: [facility] BREAST COMPOSITION: Scattered areas fibroglandular [...] by: Agustin Stephenson MD on 04/30/2022 at 07:26[facility] Physician Referralon 20-17-0775Dsixlsudz Referral [id number]#1.00CD:127[facility] HospitalPhysician [id number]#1.00CD:127 [facility] HospitalCBC AUTO DIFFon 00-65-0434XCVU #0.1 103/ul Normal0.0-0.1[facility] PrebleComment on above:Performed By: #### CMP #### [facility] [address] [place] [address] Dr. Brock EliasBasophils/100 WBC (Bld)0.8 %Normal0.2-2.0[facility] Comment on above:Performed By: #### CMP #### [facility] [address] [place] [address] Dr. Brock Maddox #0.2 103/ulNormal0.0-0.7The [facility] CenterComment on above: Performed By: #### CMP #### [facility] [address] [place] [address] Dr. Brock Carrilloosinophils/100 WBC (Bld)2.1 %Normal0.9-7.0[facility] Comment on above:Performed By: #### CMP #### [facility] [address] [place] [address] Dr. Brock Carrillorythrocyte distribution width (RBC) [Ratio]14.0 %Lqnspi93.0-15.0 The [facility] CenterComment on above:Performed By: #### CMP #### [facility] [address] [place] [address] Dr. Brock EliasHematocrit (Bld) [Volume fraction]39.6 %Vrhwtp00.0-48.0The [facility] CenterComment on above:Performed By: #### CMP #### [facility] [address] [place] [address] Dr. Brock EliasHemoglobin (Bld) [Mass/Vol]12.6 g/rMDftats94.0-16.0The [facility] CenterComment on above:Performed By: #### CMP #### [facility] [address] [place] [address] Dr. Brock Manzo #0.02 10e3/ulNormal0.00-0.03The [facility] CenterComcorewell health butterworth hospital on above:Performed By: #### CMP #### [facility] [address] [place] [address] Dr. Brock Manzo %0.2 %Normal0.0-0.5The [facility] CenterComcorewell health butterworth hospital on above: Performed By: #### CMP #### [facility] [address] [place] [address] Dr. Brock TyH #2.2 103/ulNormal1.2-3.8The [facility] CenterComment on above:Performed By: #### CMP #### [facility] [address] [place] [address] Dr. Brock Dominguezmphocytes/100 WBC (Bld)25.5 %Izhhdy09.5-60.0The [facility] CenterComcorewell health butterworth hospital on above:Performed By: #### CMP #### [facility] [address] [place] [address] Dr. Brock EliasMANUAL DIFF REQNONormalThe [facility] CenterComment on above: Performed By: #### CMP #### [facility] Laboratory [address] [address] [address] Brock Sanon (RBC) [Entitic mass]28.0 iiGdqcab89.7-34.0The [facility] CenterComment on above:Performed By: #### CMP #### [facility] [facility] [address] [place] [address] Dr. Brock Sanon (RBC) [Mass/Vol]31.8 g/zDRwnemo21.9-35.2The Raleigh HospitalComment on above:Performed By: #### CMP #### [facility] [address] [place] [address] Dr. Brock Sanon (RBC) [Entitic vol]88.0 zIIubkzp72.0-99.0The [facility] CenterComment on above:Performed By: #### CMP #### [facility] [address] [place] [address] Dr. Brock Yo #0.4 103/ulNormal0.3-0.8The [facility] CenterComment on above:Performed By: #### CMP #### [facility] [address] [place] [address] Dr. Brock Dominguezocytes/100 WBC (Bld)4.8 %Normal1.7-12.0The [facility] Comment on above:Performed By: #### CMP #### [facility] [address] [place] [address] Dr. Brock LauUT #5.6 103/ulNormal1.4-6.5The [facility] CenterComment on above:Performed By: #### CMP #### [facility] [address] [place] [address] Dr. Brock Lauutrophils/100 WBC (Bld)66.6 %Vukaae79.0-75.0The [facility] CenterComment on above:Performed By: #### CMP #### [facility] [address] [place] [address] Dr. Brock Wanglet mean volume (Bld) [Entitic vol]9.9 fLNormal9.5-13.5The [facility] on above:Performed By: #### CMP #### [facility] [address] [place] [address] Dr. Brock EliasPLT266 103/smDauiaf616-444Dfd [facility] CenterComcorewell health butterworth hospital on above: Performed By: #### CMP #### [facility] [address] [place] [address] Dr. Brock EliasRBC4.50 106/ulNormal4.20-5.40The [facility] CenterComcorewell health butterworth hospital on above:Performed By: #### CMP #### [facility] [address] [place] [address] Dr. Brock EliasWBC8.5 103/ulNormal4.0-11.0The [facility] on above: Performed By: #### CMP #### [facility] [address] [place] [address] Dr. Brock EliasGLYCOHEMOGLOBIN A1Con 71-48-5301JBU RECOMMENDATIONSEE BELOWMercy Health Springfield Regional Medical CenterComcorewell health butterworth hospital on above:Result Comment: ADA RECOMMENDED LIMIT 4.0 - 6.0 ADA THERAPEUTIC TARGET < 7.0 ACTION SUGGESTED > 7.0Performed By: #### A1C #### [facility] [address] [place] [address] Dr. Brock EliasGlucose [Mass/Vol]123 mg/dLNoMercy Memorial Hospital on above:Performed By: #### A1C #### [facility] [address] [place] [address] Dr. Brock EliasHbA1c (Bld) [Mass fraction]5.9 %Normal4.5-6.2The [facility] on above:Performed By: #### A1C #### [facility] [address] [place] [address] Dr. Brock EliasLIPID PROFILEon 92-79-6489DTKK-HDL RATIO NORMSEE [facility] on above:Result Comment: 3.3 - 4.4 LOW RISK 4.4 - 7.1 AVERAGE RISK 7.1 - 11.0 MODERATE RISK >11.0 HIGH RISKPerformed By: #### RF #### [facility] [address] [address] [address] Brock EliasCholesterol [Mass/Vol]133 mg/dLNormal<=200[facility] Comment on above:Performed By: #### RF #### [facility] [address] [address] [address] Brock EliasCholesterol in HDL [Mass/Vol]43 mg/pSYyetxz77-41EsnKettering Health PrebleComment on above:Performed By: #### RF #### [facility] [address] [address] [address] Brock EliasCholesterol in LDL [Mass/Vol]74.2 mg/dLPremier Health Miami Valley HospitalComment on above:Performed By: #### RF #### [facility] [address] [place] [address] Dr. Brock Billsestertiffany.total/Cholesterol in HDL [Mass ratio]3.1 {ratio} NormalThe [facility] CenterComment on above:Performed By: #### RF #### [facility] [address] [place] [address] Dr. Brock Bello NORMAL> or = 60 mg/dl - LOW CARDIOVASCULAR RISK <40 mg/dl - HIGH CARDIOVASCULAR RISKPremier Health Miami Valley HospitalComment on above:Performed By: #### RF #### [facility] [address] [place] [address] Dr. Brock EliasLDL CALC NORMALSEE BELOWPremier Health Miami Valley HospitalComment on above:Result Comment: <100 mg/dl OPTIMAL 100 - 129 mg/dl NEAR OR ABOVE OPTIMAL 130 - 159 mg/dl BORDERLINE HIGH 160 - 189 mg/dl HIGH >190 mg/dl VERY HIGH Performed By: #### RF #### [facility] [address] [place] [address] Dr. Brock EliasTriglyceride [Mass/Vol]79 mg/dLNormal<=150[facility] Comment on above:Performed By: #### RF #### [facility] [address] [place] [address] Dr. Brock BansalLDL CALC15.8 mg/dLNormalThe [facility] CenterComment on above: Performed By: #### RF #### [facility] [address] [place] [address] Dr. Brock EliasPROF 14(COMP METB)on 51-02-3374Aslcsmw [Mass/Vol]3.6 g/dLNormal 3.4-5.0The [facility] CenterComment on above:Performed By: #### HIV12 #### [facility] [address] [place] [address] Dr. Brock EliasAlbumin/Globulin [Mass ratio]0.9 {ratio}NormalThe [facility] CenterComment on above:Performed By: #### HIV12 #### [facility] [address] [place] [address] Dr. Brock RubioP [Catalytic activity/Vol]83 U/IUfcerf36-626Ero [facility] CenterComment on above:Performed By: #### HIV12 #### [facility] [address] [place] [address] Dr. Brock Perdomo [Catalytic activity/Vol]15 U/UQnqxzt22-75Ipi [facility] CenterComment on above:Performed By: #### HIV12 #### [facility] [address] [place] [address] Dr. Brock Balbuena gap [Moles/Vol]9.5 mmol/LNormalThe [facility] CenterComment on above:Performed By: #### HIV12 #### [facility] [address] [place] [address] Dr. Brock EliasAST [Catalytic activity/Vol]12 U/LCritically rwu07-10Eci [facility] CenterComment on above:Performed By: #### HIV12 #### [facility] [address] [place] [address] Dr. Brock EliasBilirubin [Mass/Vol]0.4 mg/dLNormal0.2-1.0The [facility] Comment on above:Performed By: #### HIV12 #### [facility] [address] [place] [address] Dr. Brock EliasCalcium [Mass/Vol]8.9 mg/dLNormal8.5-10.1The [facility] Comment on above:Performed By: #### HIV12 #### [facility] [address] [place] [address] Dr. Brock EliasChloride [Moles/Vol]105 mmol/AHtsgho14-949How [facility] Comment on above:Performed By: #### HIV12 #### [facility] [address] [address] [address] Brock EliasCO2 [Moles/Vol]28.5 mmol/ASxydqo99.0-32.0The [facility] Comment on above:Performed By: #### HIV12 #### [facility] [address] [place] [address] Dr. Brock EliasCreatinine [Mass/Vol]0.73 mg/dLNormal0.55-1.02The [facility] CenterComment on above:Performed By: #### HIV12 #### [facility] [address] [place] [address] Dr. Gutiérrez ChangEGFR-AF ANGOLAN>60Normal>=60The [facility] CenterComment on above:Performed By: #### HIV12 #### [facility] [address] [place] [address] Dr. Brock CarrilloGFR-NON AF ANGOLAN>60Normal>=60[facility] PrebleComment on above:Performed By: #### HIV12 #### [facility] [address] [place] [address] Dr. Brock EliasGlobulin (S) [Mass/Vol]3.8 g/dLNormalThe [facility] CenterComment on above:Performed By: #### HIV12 #### [facility] [address] [place] [address] Dr. Brock EliasGlucose [Mass/Vol]99 mg/pJAfeerk63-417Dco [facility] Comment on above:Performed By: #### HIV12 #### [facility] [address] [place] [address] Dr. Brock EliasPotassium [Moles/Vol]4.0 mmol/LNormal3.5-5.1The [facility] Comment on above:Performed By: #### HIV12 #### [facility] [address] [place] [address] Dr. Brock EliasProtein [Mass/Vol]7.4 g/dLNormal6.4-8.2The [facility] Comment on above:Performed By: #### HIV12 #### [facility] [address] [place] [address] Dr. Brock EliasSodium [Moles/Vol]139 mmol/ISfgkrz507-257Ymm [facility] Comment on above:Performed By: #### HIV12 #### [facility] [address] [place] [address] Dr. Brock EliasUrea nitrogen [Mass/Vol]12.0 mg/dLNormal7.0-18.0The [facility] CenterComment on above:Performed By: #### HIV12 #### [facility] [address] [place] [address] Dr. Brock Brito nitrogen/Creatinine [Mass ratio]16.4 mg/mgNormalThe [facility] CenterComment on above:Performed By: #### HIV12 #### [facility] [address] [place] [address] Dr. Brock Ann 81-26-4024SPJ8.033 uIU/mLNormal0.358-3.740The [facility] CenterComment on above:Performed By: #### HIV12 #### [facility] [address] [place] [address] Dr. Brock EliasHEMOGLOBINon 80-06-7468Bdonoxrpql (Bld) [Mass/Vol]13.0 g/dLNormal 12.0-16.0The [facility] CenterComment on above:Performed By: #### CMP #### [facility] [address] [place] [address] Dr. Brock EliasOperative Reporton [id number] ReportMR#: [id number] [facility] Pt. Name: Radha Santacruz Room #: [id number] Discharge 03/01/2022 Date: Birthdate: 1975 OPERATIVE REPORT [...] ASSISTANTS: 1. Tim Villela M.D. 2. Avinash Alves SA. ANESTHESIA: General anesthesia. ESTIMATED BLOOD LOSS: [...] medial. At this point, (more content not included)...NormalThe [facility] CenterPO GLUCOSE LABon 15-41-5168Drjvojr [Mass/Vol]94 mg/sNKfiirr88-041 The [facility] CenterComment on above:Performed By: #### [id number] #### [facility] [address] [address], USAPORTABLE KNEE RIGHT 2 VWSon [id number] KNEE RIGHT 2 SUniDayton Osteopathic Hospital Department of Radiology [address] [place] [address] Patient Name: RADHA SANTACRUZ : 1975 Sex: F Age: Race: White Pt. Location: OUTP Patient Status: O Ordered Date: 02/28/2022 4:45:00 PM Completed Date: 02/28/2022 05:42 PM Requesting Provider: TIM VILLELA Attending Provider: PETERSON BHATIA Report Copy To: Signs & Symptoms: Post OP History: Comments: Hardware Evaluation, in PACU Exam: PORTABLE KNEE RIGHT 2 VWS PORTABLE KNEE RIGHT 2 S CLINICAL INFORMATION: Hardware Evaluation. Post OP. COMPARISON: 11/21/2021. IMPRESSION: * Long stem knee arthroplasty noted with no hardware complication. No fracture. Electronically signed: Joellen Sweeney. Transcribed by: [email or web address], User Resident: Electronically Signed by: JOELLEN SWEENEY @ 02/28/2022 05:45 PMNCincinnati Shriners HospitalComment on above:Order Comment: Hardware Evaluation, in PACUMRI KNEE WO CONTRAST RIGHTon [id number] KNEE WO CONTRAST [facility] Department of Radiology [address] [place] [id number] Patient Name: RADHA SANTACRUZ : 1975 Sex: F Age: Race: White Pt. Location: Patient Status: D Ordered Date: 11/21/2021 2:35:00 PM Completed Date: 12/10/2021 01:08 PM Requesting Provider: PETERSON BHATIA Attending Provider: PETERSON BHATIA Report Copy To: Signs & Symptoms: M25.561 Pain in right knee I10 History: Powersite, pt. has pain pump, ortho hardware back Comments: ELIJA AND NEPHEW PROTOCOL , Side: RIGHT Exam: MRI KNEE WO CONTRAST RIGHT MRI KNEE WO CONTRAST RIGHT 12/10/2021 1:08 [...] above Electronically signed: Adelaida Dinh. Transcribed by: [email or web address], User Resident: Electronically Signed by: ADELAIDA DINH @ 12/11/2021 09:43 AMNormalOhioHealth Dublin Methodist HospitalComment on above:Order Comment: LEIJA AND NEPHEW PROTOCOL , Side: RIGHTKNEE LEFT 3 Son [id number] LEFT 3 [facility] Department of Radiology [address] [place] [id number] Patient Name: RADHA SANTACRUZ : 1975 Sex: F Age: Race: White Pt. Location: Patient Status: D Ordered Date: 11/21/2021 12:30:00 PM Completed Date: 11/21/2021 01:35 PM Requesting Provider: PETERSON BHATIA Attending Provider: PETERSON BHATIA Report Copy To: CM LEE Signs & Symptoms: M25.561 Pain in right knee I10 History: Powersite Comments: Views (X-RAY, KNEE): AP, Lateral, [place] Exam: KNEE LEFT 3 [facility] KNEE LEFT 3 [facility] 11/21/2021 1:35 PM CLINICAL INDICATIONS: M25.561 Pain in right knee I10 TECHNOLOGIST COMMENTS: Pt stated having bilateral knees pain, no known injury. QUESTION FOR THE RADIOLOGIST: Views (X-RAY, KNEE): AP, Lateral, [place] PROTOCOL: AP,Lateral and Tangential views were obtained. COMPARISON: 11/04/2014 FINDINGS: Severe joint space narrowing in the medial femorotibial compartment. Tricompartmental osteophyte formation. Small knee joint effusion. IMPRESSION: Tricompartmental osteoarthritis most prominent in the medial femorotibial compartment. Electronically signed: Elizabeth Landis. Transcribed by: [email or web address], User Resident: Electronically Signed by: ELIZABETH JACQUELINE @ 11/23/2021 03:26 PMNormalOhioHealth Dublin Methodist HospitalComment on above:Order Comment: Views (X-RAY, KNEE): AP, Lateral, SunriseKNEE RIGHT 3 Son [id number] RIGHT 3 S [facility] Department of Radiology [address] [place] [id number] Patient Name: RADHA SANTACRUZ : 1975 Sex: F Age: Race: White Pt. Location: Patient Status: D Ordered Date: 11/21/2021 12:30:00 PM Completed Date: 11/21/2021 01:35 PM Requesting Provider: PETERSON BHATIA Attending Provider: PETERSON BHATIA Report Copy To: CM LEE Signs & Symptoms: M25.561 Pain in right knee I10 History: [place] Comments: Views (X-RAY, KNEE): AP, Lateral, [place] Exam: KNEE RIGHT 3 [facility] KNEE RIGHT 3 [facility] 11/21/2021 1:35 PM CLINICAL INDICATIONS: M25.561 Pain in right knee I10 TECHNOLOGIST COMMENTS: Pt stated having bilateral knees pain, no known injury. QUESTION FOR THE RADIOLOGIST: Views (X-RAY, KNEE): AP, Lateral, [place] PROTOCOL: AP,Lateral and Tangential views were obtained. COMPARISON: 02/18/2011 FINDINGS: Severe tricompartmental osteophyte formation and joint space narrowing. No fracture. No malalignment. Moderate knee joint effusion. IMPRESSION: Severe tricompartmental osteoarthritis. Electronically signed: Elizabeth Landis. Transcribed by: [email or web address], User Resident: Electronically Signed by: ELIZABETH LANDIS @ 11/23/2021 03:26 [facility] HospitalComment on above:Order Comment: Views (X-RAY, KNEE): AP, Lateral, SunriseLOWER EXTREMITY JOINT SURVEYon [id number] EXTREMITY JOINT SURVEYUnGalion Hospital Department of Radiology [address] [place] [address] Patient Name: RADHA SANTACRUZ : 1975 Sex: F Age: Race: White Pt. Location: Patient Status: D Ordered Date: 11/21/2021 1:05:00 PM Completed Date: 11/21/2021 01:35 PM Requesting Provider: PETERSON BHATIA Attending Provider: PETERSON BHATIA Report Copy To: CM LEE Signs & Symptoms: M25.561 Pain in right knee I10 History: [place] Comments: Exam: LOWER EXTREMITY JOINT SURVEY LOWER EXTREMITY JOINT SURVEY 11/21/2021 1:35 PM [...] above. Electronically signed: Elizabeth Landis. Transcribed by: [email or web address], User Resident: Electronically Signed by: ELIZABETH LANDIS @ 11/23/2021 11:03 [facility] HospitalCytologyon [id number](NOTE) INTERPRETATION Cervical material, (ThinPrep vial, Imaging-assisted review): Specimen Adequacy: Satisfactory for evaluation. - Endocervical/transformation zone component present. Descriptive Diagnosis: Negative for intraepithelial lesion or malignancy. 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 High risk HPV DNA testing is requested if the diagnosis is abnormal GYNECOLOGIC CYTOLOGY REPORT Patient Name: RADHA SANTACRUZ [facility] Rec: [id number] Path Number: [id number] [employer] [facility] ANATOMIC PATHOLOGY [address] [place] [id number] NoMiddletown HospitalComment on above:Performed By: #### PPPVP #### [facility] [address] [place] [id number] Production Repairer: GLADIS Mathewsurgical Pathologyon [id number] Pathology(NOTE) -- Diagnosis -- ENDOMETRIUM, BIOPSY: - DISORDERED PROLIFERATIVE ENDOMETRIUM. Harjit Flores M.D. Electronically Signed Out [facility]10/25/2021 Clinical Information Pre-op Diagnosis: IRREGULAR/HEAVY MENSTRUAL BLEEDING Operative Findings: ENDOMETRIAL BX Source of Specimen A: ENDO BIOPSY Gross Description RADHA SANTACRUZ, ENDO HIWOT Blood-tinged mucinous material, 2.5 x 1.5 x 0.5 cm in aggregate. Entirely 1cs. mpb tm Microscopic Description The endometrium has disordered proliferative features. There is no evidence of atypia or malignancy. SURGICAL PATHOLOGY CONSULTATION Patient Name: RADHA SANTACRUZ [facility] Rec: [id number] Path Number: [id number] [employer] [facility] ANATOMIC PATHOLOGY [address] [place] [id number] NoMiddletown HospitalComment on above:Performed By: #### PPPVS #### [facility] [address] [place] [id number] Production Repairer: Saw Elizondo MD Vital Signs Date TimeVital SignValuePerforming KiykujonuFeobtbfd05-59-0478 09:04-0400Body .9 cmNicholas Brown DPM Work Phone: [facility] SystemFwwfzucfnh35-69-5520 09:04-0400Body mass index (BMI) [Ratio]50.07 kg/d8Xyneyqss Brown DPM Work Phone: [facility] SystemYnmyqrgzmq43-22-5684 09:04-0400Body oisxni767.2 kgNicholas Brown DPM Work Phone: [phone] Luke's Health SystemEijdkmydnf62-10-8649 09:04-0400Respiratory rate18 /minNicholas Brown DPM Work Phone: [facility] SystemQtonwehnxe02-36-9548 15:07-0500Body sfoolk876.9 cmNicholas Brown DPM Work Phone: [facility] SystemYqxksxakfk38-21-6703 15:07-0500Body mass index (BMI) [Ratio]50.07 kg/q2Wjiotyzl Brown DPM Work Phone: [facility] SystemWzlyivscde88-58-3978 15:07-0500Body enjhjr326.2 kgNicholas Brown DPM Work Phone: [facility] SystemPboeontuqs96-62-5011 15:07-0500Respiratory rate18 /minNicholas Brown DPM Work Phone: [phone] [place], [place] [address]Pntjrxhlvx56-74-2738 16:09-0500Body vuzjnc251.9 cmLacho Alves DPM Work Phone: [facility] SystemDdntxmvmhg10-15-4486 16:09-0500Body mass index (BMI) [Ratio]50.07 kg/r5DkeltbwlLacho Alves DPM Work Phone: [facility] SystemIfudeekkow35-84-9852 16:09-0500Body nbirtn183.2 kgLacho Alves DPM Work Phone: [facility] SystemMcfpnkxooi39-24-5684 16:09-0500Respiratory rate18 /Latisha Alves DPM Work Phone: [facility] SystemYungoldoyn11-10-5779 12:06-0400Body pjqawm417.94 [facility] 12:06-0400Body mass index (BMI) [Ratio]34 kg/a5TdzirzvlbPeoples Hospital10-24-2024 12:06-0400Body tggkbeflpro64.8 [degF][facility]10-24-2024 12:06-0400Body raoxep85.64 kgPeoples Hospital10-24-2024 12:06-0400Diastolic blood mm[Hg][facility]10-24-2024 12:06-0400 Heart rate89 /[facility]10-24-2024 12:06-0400 Respiratory rate18 /[facility]10-24-2024 12:06-0400 SaO2% (BldA) [Mass fraction]91 %[facility]10-24-2024 12:06-0400Systolic blood mdhltbre186 mm[Hg][facility] 01-14-2024 10:51-0400Body kzgvok333.94 cmPe[facility] 01-14-2024 10:51-0400Body mass index (BMI) [Ratio]51.6 kg/d1DljfsbpvsPeoples Hospital07-25-2024 10:51-0400Body wrhgaruuhrw33.8 [degF][facility]07-25-2024 10:51-0400Body dfdzxa560 kgPeoples Hospital07-25-2024 10:51-0400Diastolic blood dqdbowpv12 mm[Hg][facility]07-25-2024 10:51-0400Heart rate74 /[facility]07-25-2024 10:51-0400Respiratory rate16 /[facility]07-25-2024 10:51-4361YeK9% (BldA) [Mass fraction]98 %[facility]07-25-2024 10:51-0400Systolic blood sykxuqku191 mm[Hg][facility]12-11-2023 16:00-0500Body heightAmanda Franklin Other [employer] Other 12-11-2023 16:00-0500Body mass index (BMI) [Ratio] 51.84 kg/s0Azlvrh Franklin Other [employer] Other 12-11-2023 16:00-0500Body bskopmtllrd40.4 [degF]Kayla Franklin Other [employer] Other 12-11-2023 16:00-0500Body .47 kgAmanda Franklin Other [employer] Other 12-11-2023 16:00-0500Respiratory rate18 /minAmanda Franklin Other [employer] Other 12-11-2023 16:00-0093BuA4% (BldA) [Mass fraction]93 % Kayla Franklin Other [employer] Other 09-14-2023 16:45-0400Body tnjytxepwqd28.2 [degF]Mohit Dejesus MD Work Phone: bUNC HEALTH BLUE RIDGE - VALDESENanigans [facility]ITALHVWLHV85-13-7534 16:45-0400Diastolic blood cjdcbiez30 mm[Hg]Mohit Dejesus MD Work Phone: bon [facility]09-14-2023 16:45-0400Heart rate75 /Rodrigo Dejesus MD Work Phone: bon [facility]09-14-2023 16:45-0400 Respiratory rate16 /minMohit Dejesus MD Work Phone: bon [facility]09-14-2023 16:45-2783RaH7% (BldA) [Mass fraction]96 %Mohit Dejesus MD Work Phone: bon [facility]09-14-2023 16:45-0400Systolic blood mflsinkk884 mm[Hg]Mohit Dejesus MD Work Phone: bon [facility]09-14-2023 12:57-0400Body aqqwnb998.9 cmJojose maria Dejesus MD Work Phone: bon [facility]09-14-2023 12:57-0400Body mass index (BMI) [Ratio]49.32 kg/s4NqkvpqMohit Dejesus MD Work Phone: bon [facility]09-14-2023 12:57-0400Body obueyk245.39 kgMohit Dejesus MD Work Phone: [facility] Encounters Encounter DateEncounter TypeCare ProviderFacilityStart: 05-02-2025 End: 59-94-7408Hmtfoiuse encounterSurmila Coronel RMAProMedica Physicians Pulmonary/Sleep MedicineStart: 05-02-2025 End: 54-66-9405tcwhvaqsofKRFQU E [facility] Ambulatory PPGStart: 69-72-1160elufxoxekcNMBLD [facility] Hospitaltart: 03-23-2025 End: 22-99-3641Rjgrqe flowsZainab Alves DPM Work Phone: N[facility] CI PODIATRYStart: 03-23-2025 End: 34-78-3487Euivlemauricio Alves DPM Work Phone: noMS CI PODIATRYStart: 03-23-2025 End: 35-52-0619Pcvraz outpatient visit 15 minutesLacho Alves DPM Work Phone: noms CI PODIATRYComment on above:Tinea pedis of both feet (Primary Dx); Diabetes mellitus due to underlying condition with diabetic polyneuropathy, without long-term current use of insulin ([facility]); Pain due to onychomycosis of toenails of both feetStart: 03-23-2025 End: 16-35-3747cizxjtwuffBOUFSXCT A BROWNNot AvailableStart: 03-16-2025 End: 53-31-4151wbjaytlrrkSQXQLZShelby Memorial Hospitaltart: 03-16-2025 End: 17-76-8333nhhueabcyqAUSJMF [facility] [facility] Start: 01-12-2025 End: 10-90-3829vwrzgreemqZBHNRW [facility] Start: 10-03-2024 End: 96-05-6774gxzusvtelbXDXCAO [facility] Start: 09-08-2024 End: 65-65-1640ziobkyestiEQQTPXMPomerene Hospitaltart: 07-27-2024 End: 60-97-1525Wnnkdf outpatient visit 15 minutesLacho Alves DPM Work Phone: NOVK SC PODComment on above:Abscess, toe, left (Primary Dx); Tinea pedis of both feet; Diabetes mellitus due to underlying condition with diabetic polyneuropathy, without long-term current use of insulin ([facility])Start: 07-27-2024 End: 18-32-1777khrqnvejrjRKMNZNPZ A BROWNNot AvailableStart: 07-27-2024 End: 68-05-1794Gmdfejtammy Alves DPM Work Phone: noms [place] PODStart: 07-27-2024 End: 54-28-7491Tawulimauricio Alves DPM Work Phone: noms [place] PODStart: 07-26-2024 End: 25-20-5804xvtplgpeieJROLHFPRKettering Health Start: 07-21-2024 End: 64-73-0330Mehfdt outpatient new 30 minutesLacho Alves DPM Work Phone: noms CI PODIATRYComment on above:Abscess, toe, left (Primary Dx); Diabetes mellitus due to underlying condition with diabetic polyneuropathy, without long-term current use of insulin ([facility]); Pain due to onychomycosis of toenails of both feet; Tinea pedis of both feetStart: 07-21-2024 End: 00-94-0352flddoswhtlSSVYVFHN A BROWNNot AvailableStart: 07-21-2024 End: 72-24-7475Ochswi Smith Alves DPM Work Phone: noms CI PODIATRYStart: 07-21-2024 End: 15-81-0043Zbouzhtammy Alves DPM Work Phone: noms CI PODIATRYStart: 07-04-2024 End: 20-14-2127iqbmhdwphxTXMBQO M KAHALEcornellDayton Osteopathic Hospital Start: 06-02-2024 End: 76-28-3362flkqjldbqiRNVCHTX [facility] Start: 04-14-2024 End: 37-17-1114vusecusxhoPwnxjhmsvMercy Memorial Hospital Work Phone: Start: 04-14-2024 End: 49-85-9407Nkiqwsu encounter procedureAffinity Health Partners [facility] Work Phone: Start: 01-14-2024 End: 44-47-0689umxmxozavoEsassucpiMorrow County Hospital Work Phone: Start: 01-14-2024 End: 95-67-0278Eihwiwk encounter procedureBen Physician Group-[facility] Vascular Surgery Work Phone: Start: 73-78-8854kwvyihwqmiPEM Casandra Fatima [facility]: 09-02-2023 End: 13-20-2046Gpzsophnf Result EncounterCorey Andrea DO Work Phone: noms External Department UnsolicitedStart: 09-02-2023 End: 20-70-5759Ixbkdppll Result EncounterCorey Andrea DO Work Phone: noms External Department UnsolicitedStart: 08-26-2023 Telephone encounterJesatya Barger CMAProMedica Physicians CardiologyStart: 08-24-2023 End: 24-46-9322lmpafqeaobPVVOD FAZIONot AvailableStart: 06-01-2023 End: 41-12-2345rqxjuzonjqNtzwdi Franklin Other [facility] Yesmywine Other Start: 01-02-1531Ltpcmk outpatient visit 15 minutes Kayla GrobFPG [facility] Care ClydeStart: 05-25-2023 End: 70-70-5645fomoxkhmmeQMD RAMEYNot AvailableStart: 04-28-2023 End: 39-04-4334Hdzlegqnx Result EncounterCorey Andrea DO Work Phone: noms External Department UnsolicitedStart: 04-28-2023 End: 54-95-2155Nwcstbbsx Result EncounterCorey Andrea DO Work Phone: noms External Department UnsolicitedStart: 04-10-2023 End: 44-72-6822Yfmbkrqgr Result EncounterCorey Andrea DO Work Phone: noms External Department UnsolicitedStart: 04-10-2023 End: 92-72-8344Wbvesryxj Result EncounterCorey Andrea DO Work Phone: noms External Department UnsolicitedStart: 03-05-2023 End: 58-15-6539bbubawlopqJRQTGQ N ATALLAHMercy University of Washington Medical Centertart: 03-05-2023 End: 89-62-9519Naethbfkpb hospital visit by physicianMohit Dejesus MD Work Phone: STAZ ORStart: 02-19-2023 End: 19-51-5310wugvnxtkjlKIORJPClinton Memorial Hospitaltart: 10-28-2022 End: 64-88-6661kmqafurdrpOXDJT SHAMMOFacility:Q4Jdvgz: 59-63-5934iouryhevbdIOXXP SHAMMOFacility:M6Mrjst: 09-15-2022 End: 28-02-9865ubjyxubkmhUGFQZ SHAMMOFacility:X3Miybi: 09-14-2022 End: 75-46-8897muctahkkywNCHUG SHAMMOFacility:D5Lfzhr: 99-75-4664clhomlmvjkLKRFP SHAMMOFacility:O6Spdik: 08-12-2022 End: 93-98-9175ijcvlzykniAZVXM SHAMMOFacility:J9Iqpvk: 07-22-2022 End: 51-96-9286ctbgbjkgyjFBJBU SHAMMOFacility:M0Ddole: 07-11-2022 End: 38-49-4075yevjajtoaiXAHVT SHAMMOFacility:C3Ziqyk: 26-29-1549Bdzav Shalini Maldonado MD Work Phone: Hematology/OncologyStart: 06-04-2022 End: 26-67-6442czrcbszgnoBJCYG SHAMMOFacility:V6Ywzmv: 13-60-5884Vomwutuav Nga Lau MD Work Phone: Cancer Appts MCComment on above:AppointmentStart: 05-28-2022 End: 91-36-3879bbygjfqnrmXERMO SHAMMOFacility:T1Nybyq: 05-19-2022 End: 22-55-5922ljmzgewhwiIRKBW SHAMMOFacility:S4Trtpu: 71-82-4143ccxobxeohk Irck R NILLFacility:GS BellevueStart: 04-29-2022 End: 41-98-1954pnukjiysjfVSAQL SHAMMOFacility:Z9Pnuhf: 88-46-7809ydkvtaeyqjRVTJN SHAMMOFacility: BellevueStart: 77-39-6846Vtmtwswkn for general adult medical examination without abnormal findingsLUCAS SHAMMOThe Raleigh HospitalStart: 57-89-1604fqjhcsaksdHYETM SHAMMOFacility: NorwalkStart: 04-14-2022 End: 84-14-9619uvnywozwdyQLJAR SHAMMOFacility:K5Yciyp: 04-14-2022 End: 25-48-7709Gizqsvxah for general adult medical examination without abnormal findingsLUCAS SHAMMOFacility:R1Velsj: 04-10-2022 End: 18-31-1953jwnkqlwbttUZGSW SHAMMOFacility:E3Levhh: 02-28-2022 End: 80-32-9193dlwitxmzasAowra HannaFacility:UTMCStart: 01-02-2022 End: 99-20-6437Oxpxbrohdq hospital visit by physicianKulwant Arenas MD Work Phone: mthz PRE ADMITComment on above:No ShowStart: 12-10-2021 End: 58-82-5412xmylwxlnrnFkyen HannaFacility:UTMCStart: 47-74-6876rkxuomzqsp TRAM Davis ELAMINProMedica Duran HospitalStart: 11-21-2021 End: 19-78-9376slwmwmytdmEtoac HannaFacility:UTMCStart: 10-23-2021 End: 14-70-9444biykpvzgciWTKSTS W HEDGESMercy Clayton HospitalStart: 10-23-2021 End: 22-52-5344Elmbjvk encounter procedureHENRY J. [facility] LaboratoryStart: 10-23-2021 End: 17-58-4717Dagdeuweih hospital visit by physicianHENRY J. CAR[facility] LaboratoryComment on above:Irregular menstrual bleeding; Women's annual routine gynecological examination Procedures DateProcedureProcedure DetailPerforming ClinicianStart: 45-73-3833BI CHEST 2V Reza Andrea DO Work Phone: Start: 46-60-6131ZY CHEST 2VCorey Andrea DO Work Phone: Start: 39-77-9778COD BASIC METABOLIC PANELCorey Andrea DO Work Phone: Start: 73-58-4570TJ PELVIS W/ TRANSVAGINALCorey Andrea DO Work Phone: Start: 93-82-5032Wzhhm count complete automatedMohit Dejesus MD Work Phone: Start: 76-24-9224Mzppc test visual color cmprsn methsMohit Dejesus MD Work Phone: Start: 76-92-1535Esfezreetdo observation [Identifier] in Cervix by Cyto Lisandra Arenas MD Work Phone: Plan of Treatment DateCare ActivityDetailAuthorStart: 27-98-0279WBrP,Tdap and Td Vaccines (2 - Td or Tdap)DTaP,Tdap and Td Vaccines (2 - Td or Tdap)[facility] SystemStart: 58-77-7995Urhbg panelLipidsProvidence Hospital HealthStart: 92-09-0540Sghtj BMI ScreeningAdult BMI ScreeningProUniversity Hospitals Samaritan Medical Centerca Health SystemStart: 10-90-9412Xjhjgbv ScreeningTobacco ScreeningProDetwiler Memorial Hospital SystemStart: 07-06-2025 End: 74-79-1603Fwfbvmu encounter zusqvrgjk51/15/2026 10:00 AM EST Office Visit [facility] [address] [place] [address] Aminata Deluca, DO [address] [facility] [address] [place] [address] [facility]/Sleep MedicineStart: 06-01-2025 End: 22-60-7658Gskrgni encounter uwtxvxakf79/11/2025 9:10 AM EST Office Visit [facility] [address] [facility] [address] [place] [address] Lacho Alves, DPM [address] [address] [facility] CI PODIATRYStart: 05-02-2025 End: 67-80-0911AN Chest PA and LateralX-ray chest 2 views Imaging Routine Chronic obstructive pulmonary disease, unspecified COPD type ([facility]) Persistent asthma without complication, unspecified asthma severity Expected: 05/02/2025, Expires: 05/02/2026ProUniversity Hospitals Samaritan Medical Centerca Health SystemComment on above:Expected: 05/02/2025, Expires: 05/02/2026Start: 03-23-2025 End: 27-01-5280Dcmlbdi encounter nziifoomh97/02/2025 9:10 AM EDT Office Visit [facility] [address] [phone] Lacho Alves DPM [address] [address] Tinea pedis of both feet (Primary Dx); Diabetes mellitus due to underlying condition with diabetic polyneuropathy, without long- term current use of insulin (HCC); Pain due to onychomycosis of toenails of both feetNOMS CI PODIATRYComment on above:Tinea pedis of both feet (Primary Dx); Diabetes mellitus due to underlying condition with diabetic polyneuropathy, without long-term current use of insulin (HCC); Pain due to onychomycosis of toenails of both feetStart: 54-28-1964Oampoovsp vaccinationInfluenza VaccineProDetwiler Memorial Hospital SystemStart: 17-02-7314Sfybtjkmv for malignant neoplasm of cervixBON WRIGHT-PATTERSON MEDICAL CENTERStart: 10-06-2024 End: 24-35-4505Hmqclpq encounter fpfincige43/17/2025 3:30 PM EDT Office Visit [facility] [address] [phone] Lacho Alves DPM [address] [address] [facility] CI PODIATRYStart: 07-27-2024 End: 11-80-1596Gahjwrt encounter vqeafvnon49/05/2025 3:30 PM EST Office Visit [facility] [address] [place] [phone] Lacho Alves DPM [address] [facility] [address] [place] [address] Abscess, toe, left (Primary Dx); Tinea pedis of both feet; Diabetes mellitus due to underlying condition with diabetic polyneuropathy, without long-term current use of insulin ([facility] SC PODComment on above: Abscess, toe, left (Primary Dx); Tinea pedis of both feet; Diabetes mellitus due to underlying condition with diabetic polyneuropathy, without long-term current use of insulin ([facility])Start: 07-21-2024 End: 02-40-6866Qmlftek encounter atncbpjhh46/30/2025 4:00 PM EST Office Visit [facility] [address] [place] [phone] Lacho Alves DPM [address] [address] ArrivedNOMS CI PODIATRYComment on above:ArrivedStart: 65-78-2033Mqmpe BMI ScreeningAdult BMI ScreeningProMedica Health SystemStart: 79-03-5582Ppwjnxd ScreeningTobacco ScreeningProMedica Health SystemStart: 39-50-0311Itffgvduow A1c cpzgvnjywpcV6G test (Diabetic or Prediabetic)[facility]ITALStart: 08-27-2023 End: 95-96-3778Ryvrzrn encounter txsvlvfbu47/07/2024 12:00 PM EST Office Visit [facility] [address] [place] [address] Tram Hahn MD [address] [place] [address] [facility] CardiologyStart: 22-54-8809Kpnbachojpitsa of varicella zoster vaccineZoster (Shingles) Vaccine (1 of 2)[facility] SystemStart: 03-05-2023 End: 31-66-9103Hmjbms/rplcmt ithcl/edrl drug nfs prgrbl pumpPAIN PUMP INSERTION REMOVAL Post laminectomy syndrome 03/05/2023 2:52 PM [facility] HospitalStart: 91-43-5914Bzdxgwmfw vaccinationInfluenza VaccineMartin Memorial Hospital SystemStart: 39-69-7836Ahtjolekt vaccinationFlu vaccine (#1)[facility]ITALStart: 01-86-4066Rlregqgssk measurementCreatinineSt. Charles HospitalStart: 45-90-9213Tjlbfhpsj [Moles/volume] in Serum or PlasmaPotassiumSt. Charles HospitalStart: 88-99-1475Whldcznbx vaccinationSt. Charles HospitalStart: 01-08-2022 End: 25-55-3830Hraajhvvx to same day surgery zsadur2301/08/2022 Surgery IP Unit Kulwant Arenas MD [address] [place] [address] DILATATION AND CURETTAGE HYSTEROSCOPY CAUTERY ABLATION-NOVASUREMTHZ ORComment on above:DILATATION AND CURETTAGE HYSTEROSCOPY CAUTERY ABLATION-NOVASUREStart: 01-08-2022 End: 85-30-7278Wosoegitddny endometrial ablationDILATATION AND CURETTAGE HYSTEROSCOPY CAUTERY ABLATION DYSFUNCTIONAL UTERINE BLEEDING 01/08/2022 8:50 AM [facility] HospitalStart: 75-10-2932Wmnbvnwqvm hospital visit by btefyqvll68/20/2022 Hospital Encounter IP Unit Kulwant Arenas MD [address] [place] [address] MTHZ ORStart: 11-01-2021 End: 67-71-2999Wppciwb encounter tlotqknpj23/13/2022 Office Visit Obstetrics and Gynecology Kulwant Arenas MD [address] [place] [address] [facility]tart: 11-01-2021 End: 79-31-7134Ezjvnzynaosr / ancillary services abvynikvnp61/13/2022 Ancillary Procedure [facility]etrics and Gy[facility]cology[facility] Part [facility]tart: 68-00-7309RYYECTYJUK ASSESSMENTDEPRESSION ASSESSMENTCleveland Clinic Akron Generaltart: 46-42-4794WMYNXHQBA (FIT-DNA)COLOGUARD (FIT-DNA)[facility] Generaltart: 04-92-8932PogwqblbnnpKAIBKMQOLQECrewegdxa Clinic Start: 23-63-5301XHGCQSOYSP CANCER SCREENINGCOLORECTAL CANCER SCREENINGCleveland Clinic Akron Generaltart: 15-97-5697UR COLONOGRAPHYCT COLONOGRAPHYCleveland Clinic Akron Generaltart: 87-85-5713IQNYSNAL SCREENDIABETES SCREENCleveland Clinic Akron Generaltart: 20-33-4121ODBZO OCCULT BLOODFECAL OCCULT BLOODCleveland Clinic Akron Generaltart: 34-83-1014RYRDI SCREENLIPID SCREENCleveland Clinic Akron Generaltart: 43-68-7592Unldwtgwu for malignant neoplasm of colonSt. Charles HospitalStart: 70-75-5464WRJAKWDHTGKVSIILTTLSMODNOPAjvtgagbp Clinic Start: 34-38-0876UtpvfctxdimLSGVMYOOENzxxhbzlo ClinicStart: 12-15-1717Ypulyrjyb for malignant neoplasm of breastBreast cancer screenSt. Charles HospitalStart: 42-99-8820Shrlngww screenDiabetes screenSt. Charles HospitalStart: 64-46-4546BYU TESTING HPV TESTINGCleveland Clinic Akron Generaltart: 93-89-5672Tvcbcqpnn for malignant neoplasm of cervixSt. Charles HospitalStart: 79-30-0056LCY TESTINGPAP TESTINGCleveland Clinic Akron Generaltart: 81-64-1010Vndkggyor for malignant neoplasm of cervixPap smearSt. Charles HospitalStart: 65-98-7899SFdH,Tdap and Td Vaccines (1 - Tdap)DTaP,Tdap and Td Vaccines (1 - Tdap)[facility] Centertart: 06-52-8174XQfA/Tdap/Td vaccine (1 - Tdap) DTaP/Tdap/Td vaccine (1 - Tdap)[facility] HospitalStart: 44-88-5235Sxeel microalbumin profileDTAP,TDAP,TD (1 - Tdap)[facility] Generaltart: 76-90-6557Kgpto BMI Follow Up PlanAdult BMI Follow Up [facility] Richmondtart: 93-78-3783Oyzxuhfga C screeningHepatitis C screenAultman Alliance Community Hospitalart: 05-60-6774OTDBZMINC C SCREENING HEPATITIS C SCREENINGCleveland Clinic Akron Generaltart: 59-26-9314RSS SCREENINGHIV SCREENING [facility] Hospitalrt: 64-01-2515HWG screeningHIV screenSt. Charles HospitalStart: 83-47-8129Yojbfcfqcb ScreenDepression ScreenAultman Alliance Community Hospitalart: 1985 Depression ScreeningDepression ScreeningNovant Health Mint Hill Medical Centertart: 1983 Lipid panelLipidsBON [facility]: 69-79-0773Iovmgtdcixgc 0-64 years Vaccine (1 - PCV)Pneumococcal 0-64 years Vaccine (1 - PCV)[facility]: 60-29-5788XRNYS-19 Vaccine (1)COVID-19 Vaccine (1)[facility]: 81-78-1719YGXGQ-19 Vaccine (#1)COVID-19 Vaccine (#1)[facility]: 19-63-9424XUGUAEAVJ B (1 of 3 - 3-dose series)HEPATITIS B (1 of 3 - 3-dose series)[facility] Hospitalrt: 77-20-2453Bmlhdrjnz B vaccine (1 of 3 - 3-dose series)Hepatitis B vaccine (1 of 3 - 3-dose series)[facility]: 17-79-5209Zxlgjfl CounselingTobacco CounselingSt. Vincent Hospital End: 24-30-2786Wmauz glucose - POCTBlood glucose - POCT Point of Care Testing Routine One Time for 1 Occurrences starting 03/06/2023 until 03/06/2023ON [facility] on above:One Time for 1 Occurrences starting 03/06/2023 until 03/06/2023 End: 14-58-8198Pbrnqazzpabrn procedure, preparation of smear, genital sourcePAP SMEAR Lab Routine Women's annual routine gynecological examination 1 Occurrences starting 10/23/2021 until 10/23/2021[employer] Phone: comment on above:1 Occurrences starting 10/23/2021 until 10/23/2021 End: 89-49-7282GRVDNRFJ PACU OXYGEN THERAPY PROTOCOLInitiate PACU Oxygen Therapy Protocol Respiratory Care Routine Continuous until discontinued starting 03/05/2023 [employer] Phone: Comment on above:Continuous until discontinued starting 03/05/2023Oxygen therapy [Minimum Data Set]Initiate Oxygen Therapy Protocol Respiratory Care Routine As Needed until discontinued starting 02/20 [employer] Phone: Comment on above:As Needed until discontinued starting 03/05/2023 End: 56-04-2958Bndeodcpr, urinePregnancy, urine Lab Routine Tomorrow AM for 1 Occurrences starting 03/06/2023 until 03/06/2023 WalkHubComment on above:Tomorrow AM for 1 Occurrences starting 03/06/2023 until 03/06/2023 End: 62-25-8382Shdcqaxsh function test Complete PFT w/ BD (Spirometry (Flow Volume Loop) pre/post short acting bronchodilator w/ DLCO (diffusion study) and Lung Volume)Pulmonary function test Complete PFT w/ BD (Spirometry (Flow Volume Loop) pre/post short acting bronchodilator w/ DLCO (diffusion study) and Lung Volume) PFT Routine Chronic obstructive pulmonary disease, unspecified COPD type ([facility]) Persistent asthma without complication, unspecified asthma severity 1 Occurrences starting 05/02/2025 until 05/02/2026[facility] Work Phone: Comment on above:1 Occurrences starting 05/02/2025 until 05/02/2026 End: 08-90-2035Hqjhkuib PathologySurgical Pathology Lab Routine Irregular menstrual bleeding 1 Occurrences starting 10/23/2021 until10/23/2021[employer] Phone: Comment on above:1 Occurrences starting 10/23/2021 until 10/23/2021 End: 19-94-7049RXBUPZUD PATHOLOGY REPORTSURGICAL PATHOLOGY REPORT Lab Routine Once for 1 Occurrences starting 10/23/2021 until 10/23/2021[facility] CenterMetaCarta Phone: comment on above:Once for 1 Occurrences starting 10/23/2021 until 2[facility] Immunizations Immunization DateImmunizationNotesCare UqmivjacHhcispka51-71-9347gmtfmjmwj virus vaccine, unspecified formulationSurmila Coronel [facility] Payers DatePayer CategoryPayerPolicy ID2025Medicare HMOANTHEM MEDICARE Member Subscriber Plan / Payer (Effective 2024-Present) Name: Radha Mendoza Relation to Subscriber: Self Name: Radha Mendoza Payer ID: [id number] (NAIC) Group ID: [id number] Type: Not on file Address: [address] [id number] 2025Medicare [id number] [id number]. Medicare1.2.840.914081.1.13.159.2.7.3.275[id number] 2..1.887710.3.57[id number] 2..1.466449.3.57[id number] 2..1.129458.3.57[id number] 2..1.724740.3.57[id number] 2..1.343939.3.579.[id number] 2.16840.1.410795.3.579.2.19147-81-0443Ielbeea1571684 2.840.1.505522.3.579.2.60570-41-1349Pepjdkg9094022 2.840.1.568951.3.579.2.18666-64-3942Gwarckk4097613 2.840.1.328247.3.579.2.24220-65-8105Orsulqj4998630 2.840.1.183544.3.579.2.50717-87-0811Rpjyaxi6981856 2.840.1.808890.3.579.2.71307-01-5817Hwbuhgp1860824 2.840.1.887501.3.579.2.43150-56-9266Kvrstkp6438425 2.840.1.759054.3.579.2.75997-48-9970Drakfux2507465 2.0.1.076300.3.579.2.57372-80-2570Ruahtyy6818061 2.840.1.384226.3.579.2.94050-66-9648Ktsxhht8541740 2.840.1.777729.3.579.2.46728-50-4655Jbfpzqj1856102 2.840.1.308943.3.579.2.70708-57-7891Jvvxnvl4050513 2.840.1.083471.3.579.2.53832-38-1670Obkgehd0154689 2.840.1.612132.3.579.2.26465-59-6600Islusus9044054 2.840.1.493605.3.579.2.17390-16-8093Upynqvg14121625 2.16.840.1.623032.3.579.2.91430-87-4124Rflsbix39410047 2.16.840.1.694765.3.579.2.23231-06-4029Gqcdcgy1569165 2.16.840.1.935571.3.579.2.303474-62-4740Mtjcwgv650939 2.16.840.1.880513.3.579.2.636803-97-7288Jgxhoay913224213 2.16.840.1.366714.3.579.2.335177-63-0464Ccxqhum65128069 2.16.840.1.387172.3.579.2.669978-64-8168Dldaxuq9660367 2..840.1.201978.3.579.2.661239-47-3520Ipfssjj4574409 2.16.840.1.024226.3.579.2.051917-08-0889Gsqchnl117710106 2..840.1.907530.3.579.2.056520-75-4568Mtqmewe885690037 2.16.840.1.973911.3.579.2.1286 [id number] 1.2.840.982980.1.13.239.2.7.3.967242.315 [id number] 1.2.840.138329.1.13.239.2.7.3.796812.54955-95-3337Gxmj-drvJgkwegc4894601 2.16.840.1.117314.3.579.2.593 Social History DateTypeDetailFacilityStart: 10-23-2021 End: 58-61-2149Utubfce smoking status [facility] tobacco dailyProvidence Hospital Health Work Phone: History of tobacco useCigarette SmokerProvidence Hospital CHORD Phone: start: 08-02-2020 End: 62-20-1173Ozcrxkilmi smoked current (pack per day) - Reported1.5[facility] CenterMetaCarta Phone: start: 10-23-2021 End: 76-03-3172Gtlqmzp use and exposureSmokeless tobacco non-userProvidence Hospital CHORD Phone: start: 10-23-2021 End: 57-09-1804Mdfahtf intakeEx-drinker (finding)[facility] CHORD Phone: start: 46-10-4650Drl Assigned At BirthNot on fileUniversity Hospitals Geauga Medical CenterMetaCarta Phone: start: 41-53-3372Qxjpuyk smoking status NHISOccasional tobacco smokerCleveland Clinic Akron Generaltart: 03-11-2017 End: 07-58-0689Hvfoezu intakeCurrent non-drinker of alcohol (finding)[facility] Generaltart: 02-19-2017 End: 97-65-4043Nidzpze Gnpvzga09 cigarettes to 2 pks per dayPeoples Hospital History of tobacco usePassive smokerCleveland Clinic Akron Generaltart: 03-05-2023 End: 61-77-9903Gxbdzga intakeCurrent drinker of alcohol (finding)[facility]ITALStart: 08-02-2020 End: 16-27-9824Ejhyokw use panelBON WRIGHT-PATTERSON MEDICAL CENTERStart: 73-60-7992Bbyklvh Commentvery rare- maybe twice a yearBON WRIGHT-PATTERSON MEDICAL CENTERStart: 06-01-2023 End: 60-78-6763Qbvueqo smoking status NHISSmoker (finding)[facility] Centertart: 90-92-5531Ojx Assigned At BirthFeAdena Regional Medical CenterTobacco smoking status NHISTobacco smoking consumption unknownJORDAN VALLEY [facility] HealthcareStart: 38-07-9237LywiwprbbXronccfWipVdmkdw Health SystemStart: 57-26-5320Rfwvout CommentDuke Regional Hospitaltart: [id number] (finding)[facility] Medical Equipment Procedure CodeEquipment CodeEquipment Original TextEquipment IdentifierDatesKit Catheter Rev Seg W Attch Sutureless Value Stream Coach Conn 2 Cllt Rul - [id number] Start: 03-05-2023 Clinical Notes 01-02-2022 to 05-02-2025 Note Date & [id number] Miscellaneous Notes* Telephone Encounter - ANUP Conteh - 05/02/2025 11:27 AM EST Patient was seen in office today for CESARIO with AD, per AD, needs to see pulm MD for COPD and asthma.Patient scheduled on 07/06/2024 with [facility] in [place]. * Telephone Encounter - ANUP Conteh - 05/02/2025 11:27 AM EST Torch Cutter called patient and informed patient that the orders for CXR and PFT have been placed and provided patient with central scheduling's contact information, patient verbalized understanding. documented in this encounterSt. [facility]11[facility] Telephone encounter Note* Telephone Encounter - ANUP Conteh - 05/02/2025 11:27 AM EST Patient was seen in office today for CESARIO with AD, per AD, needs to see pulsalvador MD for COPD and asthma.Patient scheduled on 07/06/2024 with [facility] in [place]. [facility]11-11-2025 Telephone encounter Note* Telephone Encounter - ANUP Conteh - 05/02/2025 11:27 AM EST Torch Cutter called patient and informed patient that the orders for CXR and PFT have been placed and provided patient with central scheduling's contact information, patient verbalized understanding. [facility]10-23-2025 NoteOrthopaedic Surgery Subjective Pain of the Left Knee (L knee pain , discuss L TKA ) 04/13/25 Radha Mendoza is a 49 y.o. female presenting for left knee pain. Patient was previously seen by Dr. Bhatia for right knee arthroplasty and she is coming today to discuss having a left knee arthroplasty. Patient states that her knee pain has been present for several years, however, at the beginning of this month she was getting into her car, and her left leg was twisted and she had immediate pain. She came to [facility] and was referred to Dr. Bhatia for further treatment. Patient states that her left knee pain is 5/10 while resting, but can get to a 9/10 with increased activity. Since patient has last been to Dr. Bhatia's clinic, she has had chronic cellulitis of both legs that resolves with oral antibiotics, the most recent flare was in her left leg 3 weeks ago that was resolved, she has been treated by her PCP. She states that she has chronic neuropathy in bilateral legs from her hips down to her feet, no tingling or loss of sensation. No issues with right knee. BMI: 49.13 Social- Smoking, Yes, a 1 pack and a half a day for 2-3 years, smokes marijuana daily, does not drink alcohol, currently lives in home with ramp, no stairs PMH- Borderline DM (last HA1C 2 months ago 6.2), COPD, Fibromyalgia, chronic neuropathy in bilateral hips down, seronegative RA, bilateral lymphadema PSH-Placement of intrathecal catheter for pain control, L4-S1 spinal fusion with iliac crest bone graft, right meniscus repair Currently not taking previously prescribed Eliquis History Surgical History[1] Medical History[2] Objective General: There is no height or weight on file to calculate BMI. No acute distress, comfortable Patient is AOX3, NAD< no labored breathing normal mood and affect , looks uncomfortable Left Knee: Inspection- no swelling of knee, there is bilateral swelling of lower legs/ankle area, as well as redness and scaling in left distal tibia area Tender to palpation over entire knee joint line, most prominent in medial joint line, otherwise non-tender Knee ROM: Extension- 0??? Flexion- 110??? Crepitus noted with knee flexion Strength: Knee Flexion 5/5 Knee Extension 5/5 Ankle Dorsiflexion 5/5 Ankle Plantarflexion 5/5 Sensation: intact over superficial peroneal, deep peroneal and tibial nerve distributions Stability: Stable to varus and valgus stress Stable to anterior and posterior thrust Gait: heel toe pattern, normal Imaging X-ray of the left knee 3 views obtained on 03/23/2025 was personally reviewed. By us Shows left knee osteoarthritis , subchondral sclerosis, osteophytes, and joint space narrowing, more severe on the medial aspect of knee joint. Imaging personally reviewed and interpreted by attending physician. Findings discussed with patient. Assessment/Plan Radha Mendoza is a 49 y.o. female with Unilateral primary osteoarthritis, left knee. Imaging and clinic findings were discussed with patient. -Plan was discussed with patient for surgery optimization in the form of weight loss, smoking cessation, and treatment by lymphedema clinic for bilateral lymphedema. -Return to clinic as needed Yaw Carr, 4 Orthopaedic Surgery 04/13/25 9:28 AM Attending physician notes : Discussed with the patient the results of clinical exam and imaging, discussed that she has left knee osteoarthritis and will need surgery however she is not a surgical candidate at this point due to her high BMI of 49 as well as he smoking history and bilateral lower extremity lymphodema and history of recurrent cellulitis, discussed conservative treatment until the patient is optimized for surgery , discussed weight loss and follow up with vascular / lymphodema clinic . As the teaching physician, I have personally performed or re-performed the history of present illness, physical exam and medical decision-making activities of the encounter and verified the medical student's documentation. I made pertinent changes as necessary to ensure accurate documentation. There may be additional comments below. Additional Comments: edits performed [1] Past Surgical History: Procedure Laterality Date CARDIAC CATHETERIZATION SECTION, CLASSIC SECTION, LOW TRANSVERSE DILATION AND CURETTAGE OF UTERUS HERNIA REPAIR INTRATHECAL PUMP IMPLANTATION managed by Dr. Dejesus. KNEE ARTHROPLASTY LUMBAR FUSION 2009 Dr. Duffy MENISCECTOMY SPINAL CORD STIMULATOR IMPLANT SPINAL CORD STIMULATOR REMOVAL SPINAL FUSION 2010 Dr. Stoddard TONSILLECTOMY [2] Past Medical History: Diagnosis Date Back pain Bipolar disorder (CMS/HCC) CHF (congestive heart failure), NYHA class I (CMS/HCC) Chronic mental illness COPD (chronic obstructive pulmonary disease) ([facility]/HCC) Deep vein thrombosis ([facility]/HCC) Depression Diabetes mellitus ([facility]/HCC) Dyslipidemia Dys (more content not included)...[facility]10-02-2025 NoteHPI Reported by patient. Location: left knee pain , chronic, ready for TKA, no additional complaints, Quality: ache Severity: moderate to severe Alleviating Factors: rest Aggravating Factors:walking Associated Symptoms: no weakness; no numbness; no tingling; no swelling; no redness; no warmth; no ecchymosis; no catching/locking; no popping/clicking Previous Surgery: surgical procedure:none Prior Imaging: x ray ROS Patient reports arthralgias/joint pain, reports no fever and no chills, reports no chest pain, reports no numbness and no weakness. Physical Exam Patient is a 49 yo female Constitutional: General Appearance: NAD and comfort comfortable. Psychiatric: Orientation: oriented to time, place, and person. Mood and Affect: normal affect and mood and active and alert. Gait and Station: Appearance: no assistive devices Cardiovascular System: Extremities warm and well perfused Lymph Nodes: Mood and Affect: mood and affect normal. Skin: Intact Neurologic: Sensation: grossly intact. Head: Head: normocephalic and atraumatic. Neck: Neck: trachea midline. Lungs: Respiratory effort: no dyspnea. Knee Musculoskeletal Exam Gait Antalgic: left Limp: left Inspection Left Effusion: none Edema: none Ecchymosis: none Palpation Left Tenderness: present Medial joint line: moderate Range of Motion Left Active extension: 0 Active flexion: 115 Neurovascular Left Left knee neurovascular exam is normal. General Constitutional: appears stated age Scleral icterus: no Labored breathing: no Psychiatric: normal mood and affect Xrays Advanced left knee OA, most notable medial compartment Plan Patient underwent right TKA with Dr. Bhatia doing well, would like to see him for left knee.[facility]10-02-2025 History of Present illness Narrative* aLcho Alves, SONI - 03/23/2025 9:10 AM EDT Patient: Radha Mendoza : 1975 PCP: Bertin Pelaez MD SUBJECTIVE This is a 49 y.o. female that presents today with a CC of elongated, thick nails. Pt states nails have been elongated and thick for many years and cause pain with ambulation in shoegear. Pt has tried previous treatment with minimal relief. Pt presents today for nail care and treatment. Patient is DM2 Pt also presents today for follow up of tinea pedis. Pt states they have not been using medicated antifungal cream with negative improvement And states diminished slightly diminished itching to feet and toes. Allergies: Allergies Allergen Reactions Dulaglutide Nausea And Vomiting and GI intolerance Doxycycline Hives and Unknown Nsaids Unknown Pt takes methotrexate and is not able to take NSAIDS Oxytocin Unknown Other Reaction(s): anaphylactic shock Sumatriptan Unknown Other Reaction(s): feels like on fire Nixon like head was on fire Past Medical History: Past Medical History: Diagnosis Date Diabetes (HCC) Pap smear for cervical cancer screening 2021 neg w/shammo Screening mammogram, encounter for 2022 neg Medications: Current Outpatient Medications: albuterol HFA 90 mcg/act inhaler, every 4 (four) hours., Disp: , Rfl: atorvastatin (Lipitor) 10 MG tablet, Oral for 30 Days, Disp: , Rfl: busPIRone (Buspar) 30 MG tablet, Take 30 mg by mouth in the morning and 30 mg before bedtime., Disp: , Rfl: DULoxetine (Cymbalta) [address] capsule, 1 capsule., Disp: , Rfl: furosemide (Lasix) 80 MG tablet, 1 (one) time each day at the same time., Disp: , Rfl: hydrOXYzine pamoate (Vistaril) 50 MG capsule, as directed Orally twice daily NEEDED, Disp: , Rfl: lamoTRIgine (LaMICtal) 100 MG tablet, 1 tablet Orally MORNING for 90 days, Disp: , Rfl: lisinopril 20 MG tablet, 1 (one) time each day at the same time., Disp: , Rfl: methotrexate 2.5 MG tablet, Take 2.5 mg by mouth 1 (one) time per week., Disp: , Rfl: metoprolol succinate XL (Toprol-XL) 50 MG 24 hr tablet, 1 (one) time each day at the same time., Disp: , Rfl: omeprazole (PriLOSEC) [address] capsule, take 1 capsule by mouth every morning 30 MINUTES BEFORE MORNING MEAL for 30, Disp: , Rfl: tiZANidine (Zanaflex) 4 MG tablet, every 8 (eight) hours., Disp: , Rfl: traZODone (Desyrel) 150 MG tablet, 1 (one) time each day at the same time., Disp: , Rfl: Trelegy Ellipta 200-62.5-25 MCG/ACT aerosol powder , Inhale 1 puff in the morning., Disp: , Rfl: Vraylar 4.5 MG capsule, 1 capsule., Disp: , Rfl: Social History: Social History Socioeconomic History Marital status: Spouse name: Not on file Number of children: Not on file Years of education: Not on file Highest education level: Not on file Occupational History Not on file Tobacco Use Smoking status: Every Day Types: Cigarettes Smokeless tobacco: Not on file Substance and Sexual Activity Alcohol use: Not on file Drug use: Not on file Sexual activity: Yes control/protection: Female Sterilization Other Topics Concern Not on file Social History Narrative Merged History Encounter Social Drivers of Health Financial Resource Strain: Not on file Food Insecurity: No Food Insecurity (03/31/2023) Received from [facility] Hunger Screening Within the past 12 months we worried whether our food would run out before we got money to buy more.: Never True Within the past 12 months the food we bought just didn't last and we didn't have money to get more.: Never True Transportation Needs: Not on file Physical Activity: Not on file Stress: Not on file Social Connections: Not on file Intimate Partner Violence: Not At Risk (09/08/2024) Received from [facility] Humiliation, Afraid, Rape, and Kick questionnaire Fear of Current or Ex-Partner: No Emotionally Abused: No Physically Abused: No Sexually Abused: No Housing Stability: Not on file ROS: General: denies fever, chills, fatigue, malaise Gastrointestinal: denies abdominal pain, ulcers, or changes in appetite or bowel habits Musculoskeletal: denies arthritis, denies loss of strength, pain to hip, knees, back Cardiovascular: denies CP, palpitations, irregular rhythms OBJECTIVE LE EXAM: DERM: Elongated thick yellow crumbly nails digits 1 through 10. Negative hair growth with thin shiny atrophic skin bilaterally. positive dry and peeling skin to b/l mocassin distribution. VASC: Negative DP and negative PT pedal pulses NEURO: 5.07 [place] Chandana monofilament test diminished to digits and forefoot bilaterally 125Hz tuning fork diminished to 1st MPJ bilaterally ORTHO: Positive pain on palpation to toenails of the left 1,2,3,4,5 toes and right 1,2,3,4,5 toes ASSESSMENT 1. Tinea pedis of both feet 2. Diabetes mellitus due to underlying condition with diabetic polyneuropathy, without long-term current use of insulin (HCC) 3. Pain due to onychomycosis of toenails of both feet PLAN Discussed proper foot care with patient today. Debride nails in length and thickness digits 1 through 10 Patient educated today on proper diabetic foot care including monitoring feet daily for any signs of infection openings in the skin or irregularities to both feet. Patient had a diabetic neurologicalexam today to both their feet and discussed proper shoe gear. Pt to continue with antifungal creams with offer for refills today for medication. Lacho Alves DPM documented in this encounterSaint Luke's Health [id number] Note Attestation signed by Medina Montes MD at 03/17/2025 10:03 AM GC: I saw this patient on the day of the encounter, performed the rawls portion(s) of the service participated in the management, and confirmed the resident's documentation. Please note that I may need additional personal documentation. Subjective Patient ID: Radha Mendoza is a 49 y.o. female with seronegative RA, bilateral hand and right knee OA s/p R TKA complicated by cellulitis, lumbar back surgery, migraine headaches, COPD/CESARIO on CPAP, tobacco dependence, history of [place], CHF, PTSD, bipolar, anxiety and morbid obesity. She presents as follow up, was last seen on 10/03/2024 Current medication regimen: Methotrexate 25 mg (10 tabs of 2.5 mg) weekly, folate supplementation 1 mg daily. HPI Patient reports arthritis symptoms have been ok and stable since the previous visit. She notes that she does not wake up with stiffness, but stiffness comes in the early afternoon and lasts until the evening hours; sometimes improves with movement. She reports swelling in fingers but can not identify reason for when swollen. She denies any oral ulcers, nausea, vomiting with methotrexate. Dry eyes and mouth. Has not used eye drops. Keeps drink with her for dry mouth. States pilocarpine has helped immensely, wants to continue it. GERD controlled with protonix 40 mg daily. Carpal tunnel syndrome is bothersome but stable since previous visit. 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 She has wrist braces at home and states they help when she wears them but that she doesn't wear them often. Does not want to do surgery. Would not like steroid injections either. Bilateral knee OA, pain noticed mostly in left knee as has hx of right sided TKA. Patient has stated the left knee has worsened since previous visit. Worse with activity and improves with rest. She states that her left knee definitely needs replaced but she is not interested in left sided replacement anytime soon. She is interested in PT at this time, would not like an injection today. Patient continues to smoke cigarettes, 1.5 ppd. She is not interested in quitting at this time. 03/16/25 Patient reported significant improvement of joint pain. She like to get a new script of Enbrel today. She gets her enbrel delivered by mail every month. She has been using it for 2 months. Last delivery of Enbrel was lost and when she received it she noted medications were in room temperature. She contacted the pharmacy and was instructed to leave them out. After taking the 3rd dose of Enbrel stored in room temperature she developed redness and mild swelling on the left thigh injection site. On exam an oval small light pink area noted, no swelling or tenderness present. Review of Systems Constitutional: Negative for chills, fatigue, fever and unexpected weight change. HENT: Negative for mouth sores and trouble swallowing. Dry mouth. Eyes: Negative for visual disturbance. Dry eyes. Respiratory: Negative for cough, chest tightness and shortness of breath. Cardiovascular: Positive for leg swelling. Negative for chest pain and palpitations. Gastrointestinal: Negative for abdominal pain, nausea and vomiting. GERD, controlled Genitourinary: Negative for dysuria. Musculoskeletal: Positive for arthralgias and joint swelling (left knee). Negative for back pain and myalgias. She twisted her left leg and fell on her left knee Skin: Positive for color change. Negative for rash. Neurological: Positive for numbness. Negative for dizziness, weakness, light-headedness and headaches. Objective Visit Vitals BP 115/80 (BP Location: Right arm, Patient Position: Sitting, BP Cuff Size: Adult) Pulse 72 Physical Exam Vitals reviewed. Constitutional: General: She is not in acute distress. Appearance: Normal appearance. HENT: Head: Normocephalic and atraumatic. Mouth/Throat: Mouth: Mucous membranes are dry. Eyes: General: No scleral icterus. Extraocular Movements: Extraocular movements intact. Cardiovascular: Rate and Rhythm: Normal rate and regular rhythm. Heart sounds: Normal heart sounds. No murmur heard. Pulmonary: Effort: No respiratory distress. Breath sounds: No stridor. Wheezing present. No rales. Musculoskeletal: General: Swelling (left knee s/p fall) and tenderness present. No deformity. Right wrist: No swelling or tenderness. Left wrist: No swelling or tenderness. Right hand: No swelling, deformity or tenderness. Decreased strength. Left hand: No swelling, deformity or tenderness. Decreased strength. Right knee: No tenderness. Left knee: Tenderness present. Right lower leg: Edema (Chronic venous stasis edema) present. Left lower leg: Edema (Chronic venous stasis edema) pre (more content not included)...[facility]07-30-2025 NoteRefill call completed Tevin Trevino CPhT [facility] Pharmacy Initial Assessment [facility] Encounter Date: 01/18/25 Radha Mendoza is a 49 y.o. year old female patient contacted via phone for targeted medication review prior to enrollment in [facility] Pharmacy Services for etanercept (Enbrel) 50 mg/ml every 7 days. The purpose of this review is to reconcile the patient's current medication regimen, provide patient education, identify drug-drug interactions, assess medication appropriateness, and world travel counselor on the expectations of therapy specific to the above medication. Specialist: Medina Montes MD [facility] Rheumatology Indication: Rheumatoid arthritis (Diagnosis Code: M06.00) The following evidence-based tools were consulted for this evaluation: [x] [employer] Drug Information [] [employer] Clinical Resource [] Clinical Pharmacology [x] FDA Package Insert [] Other: Please Specify: PHARMACIST REVIEW OF INITIAL CLINICAL WORKUP & PAST THERAPIES: 01/13/25 CURRENT DOCUMENTED OUTPATIENT MEDICATIONS/ALLERGIES/DIETARY RESTRICTIONS, DRUG INTERACTIONS, AND DRUG UTILIZATION REVIEW: Current Outpatient Medications Medication Sig Dispense Refill albuterol 90 mcg/actuation inhaler INHALE 2 PUFFS BY MOUTH EVERY 4 HOURS IF NEEDED FOR SHORTNESS OF BREATH apixaban (Eliquis) 5 mg tablet Take 1 tablet (5 mg) by mouth in the morning and at bedtime. (Patient not taking: Reported on 01/12/2025) 180 tablet 3 atorvastatin (Lipitor) 10 mg tablet Take 1 tablet (10 mg) by mouth in the morning. 90 tablet 3 busPIRone (Buspar) 10 mg tablet Take 10 mg by mouth two times daily. cariprazine (Vraylar) 4.5 mg capsule Take 4.5 mg by mouth in the morning. cephalexin (Keflex) 500 mg capsule (Patient not taking: Reported on 01/12/2025) clotrimazole-betamethasone (Lotrisone) cream dapagliflozin propanediol (Farxiga) 10 mg Take 1 tablet (10 mg) by mouth in the morning. 90 tablet 3 DULoxetine (Cymbalta) [address] capsule Take 60 mg by mouth in the morning. etanercept (EnbreL SureClick) 50 mg/mL (1 mL) pen injector Inject 50 mg under the skin every 7 (seven) days. 4 mL 11 folic acid (Folvite) 1 mg tablet Take 1 tablet (1 mg) by mouth in the morning. 90 tablet 3 furosemide (Lasix) 80 mg tablet Take 40 mg by mouth if needed. HYDROmorphone (Dilaudid) 2 mg tablet Pain pump hydrOXYzine HCL (Atarax) 50 mg tablet Take 50 mg by mouth if needed. hydrOXYzine pamoate (Vistaril) 50 mg capsule lamoTRIgine (LaMICtal) 100 mg tablet Take 1 tablet by mouth in the morning. lisinopril 20 mg tablet Take 20 mg by mouth in the morning. metFORMIN XR (Glucophage-XR) 750 mg 24 hr tablet Take 750 mg by mouth daily with evening meal. methotrexate 2.5 mg tablet Take 10 tab PO weekly 40 tablet 6 metoprolol succinate XL (Toprol-XL) 25 mg 24 hr tablet Take 25 mg by mouth in the morning. Do not crush or chew. multivitamin tablet Take 1 tablet by mouth in the morning. omeprazole (PriLOSEC) [address] capsule Take 1 capsule by mouth in the morning. pantoprazole (ProtoNix) 40 mg EC tablet Take 40 mg by mouth before breakfast. pilocarpine (Salagen) 7.5 mg tablet Take 1 tablet (7.5 mg) by mouth three times daily. 90 tablet 11 prazosin (Minipress) 1 mg capsule Take 1 mg by mouth at bedtime. traZODone (Desyrel) 150 mg tablet take 1 tablet by mouth at bedtime if needed Trelegy Ellipta 200-62.5-25 mcg blister with device INHALE 1 PUFF BY MOUTH ONCE DAILY No current facility-administered medications for this visit. Reviewed and documented in the Current Medication and allergy/sensitivity list (including but not limited to medications, peanuts, soy, gluten, dairy, shellfish, latex, adhesive/tapes, disinfectants). The patient's current medication list was reviewed and there were no discrepancies found No drug allergy or food allergy changes The patient was asked if they had any dietary requirements (including but not limited to vegetarian, vegan, gluten intolerance, lactose intolerance, Hilal, Kosher) and none were reported Potential drug-drug interactions (including prescription, OTC, and herbal/dietary supplements) were assessed and none were identified A drug utilization review was conducted and there were no DUR alerts identified. HEALTH/SAFETY HAZARDS: The patient was assessed for the following if applicable: Adequate living arrangements, home environment safety and security, functional limitations, orientation and memory, reasoning/judgement, and ability to self-administer medications. Potential issues identified: None The following address was verified with the patient: [address] [facility] [address] [x] Phone number in Epic was verified with the patient: [phone] [x] Preferred method of communication: phone [x] Emergency Contact information is on file in [facility]: singh mendoza [phone] Verified the following documents are available in [facility]: [x] HIPAA Notice of Privacy Practices [x] Confidential Communications Request Form (list names): n/a [] If patient (more content not included)...[facility] 01-13-2025 NoteSpecialty Pharmacy Note: Larissa Supervising Physician & Clinic:? Medina Montes MD at [facility] Rheumatology Radha Mendoza is a 49 y.o. year old female patient with PMH of: Seronegative Rheumatoid Arthritis Past Medical History: Diagnosis Date Back pain Bipolar disorder (CMS/HCC) CHF (congestive heart failure), NYHA class I (CMS/HCC) Chronic mental illness COPD (chronic obstructive pulmonary disease) (CMS/HCC) Deep vein thrombosis (CMS/HCC) Depression Diabetes mellitus (CMS/HCC) Dyslipidemia Dyspepsia Epigastric pain GERD (gastroesophageal reflux disease) Heart attack (CMS/HCC) Hyperlipidemia Hypertension Neuropathy Obesity Osteoarthritis PTSD (post-traumatic stress disorder) Vomiting Patient Active Problem List Diagnosis Arthritis of right knee Knee pain Acquired spondylolisthesis Bipolar II disorder (CMS/HCC) Morbid obesity with BMI of 50.0-59.9, adult (CMS/HCC) Chest pain Chronic obstructive lung disease (CMS/HCC) Acute pain Depressive disorder Chronic pain syndrome Dyslipidemia Benign hypertensive cardiomyopathy with heart failure (CMS/HCC) Failed back syndrome Low back pain Inflammation of sacroiliac joint Lumbar post-laminectomy syndrome Major depressive disorder, recurrent episode, moderate (CMS/HCC) Generalized anxiety disorder Panic disorder Syncope Tobacco abuse Status post total knee replacement using cement, right Bilateral carpal tunnel syndrome Methotrexate, aerospace control and warning systems, current use Seronegative rheumatoid arthritis (CMS/HCC) Osteoarthritis of both knees Osteoarthritis of both hands Tobacco dependence Chronic diastolic congestive heart failure (CMS/HCC) N&V (nausea and vomiting) CESARIO (obstructive sleep apnea) Radiculopathy, lumbar region GUALLPA (dyspnea on exertion) Dysmenorrhea Menorrhagia with irregular cycle Neuropathy Postoperative visit S/P endometrial ablation Congestive heart failure (CMS/HCC) Chronic obstructive pulmonary disease (CMS/HCC) Allergies Allergen Reactions Oxytocin Anaphylaxis and Other Adhesive Tape-Silicones Hives Doxycycline Dulaglutide Other reaction(s): Nausea And Vomiting, vomiting Imitrex [Sumatriptan] Morphine Nsaids (Non-Steroidal Anti-Inflammatory Drug) Other kidneys shut down PharmD consulted for evaluation of Enbrel for treatment of Seronegative Rheumatoid Arthritis (Diagnosis Code: M06.00). ?? Prescribed Dosing: Enbrel 50mg/ml Sureclick Inject 1 pen (50 mg) under the skin once weekly The following evidence-based tools were consulted for this evaluation: [x] [employer] Drug Information [] [employer] Clinical Resource [] Clinical Pharmacology [x] FDA Package Insert [] Other: Please Specify: Previous medications tried: Methotrexate (08/2022-current) No pertinent drug interactions were noted. No renal or hepatic dose adjustments necessary. Vitals: Ht Readings from Last 1 Encounters: 01/12/25 1.549 m (5' 1 ) Wt Readings from Last 1 Encounters: 01/12/25 116 kg (255 lb) BMI Readings from Last 1 Encounters: 01/12/25 48.18 kg/m??? BP Readings from Last 1 Encounters: 01/12/25 111/72 Pulse Readings from Last 1 Encounters: 01/12/25 74 Pertinent labs: CMP: Lab Results Component Value Date GLUCOSE 89 01/12/2025 CALCIUM 9.1 01/12/2025 NA 141 01/12/2025 K 4.5 01/12/2025 CO2 31 01/12/2025 CL 104 01/12/2025 BUN 11 01/12/2025 CREATININE 0.80 01/12/2025 EGFR 89.2 01/12/2025 LFTs: Lab Results Component Value Date ALT 18 01/12/2025 AST 17 01/12/2025 ALKPHOS 66 01/12/2025 BILITOT 0.6 01/12/2025 ALBUMIN 4.4 01/12/2025 PROT 7.3 01/12/2025 CBC: Lab Results Component Value Date WBC 6.40 01/12/2025 HGB 14.9 01/12/2025 HCT 46.4 (H) 01/12/2025 MCV 90.4 01/12/2025 PLT 213 01/12/2025 NEUTROABS 4.11 01/12/2025 LYMPHSABS 1.76 01/12/2025 TB: Pending (drawn 01/12/25) Viral Hepatitis: Lab Results Component Value Date HEPBSAG Nonreactive 01/12/2025 HEPBCAB Nonreactive 01/12/2025 Evaluation: Based on evaluation within normal limits and trial and failure of above medications, patient is an appropriate candidate for this medication.? Follow-up: Called and spoke to patient to advise we have received a new prescription, a prior authorization is required, and we will call with any further updates from insurance. TB drawn and pending 01/12. Lydia Jimenez, Félix Outpatient Clinical Pharmacist [facility] [phone] 01/13/25 10:02 [facility] NoteReceived a new Enbrel prescription. Goes through as transition fill. PA required. Lydia Jimenez PharmD Outpatient Clinical Pharmacist [facility] [phone] 01/13/25 9:25 [facility]07[facility]-2025 NoteTB (-). A prior authorization has been submitted over the phone and we are waiting on a determination. Case #: [id number]. Denisse To [facility] 01/17/25 1:28 PML[facility]07-25-2025 NotePA Approved from 10/20/24-01/17/26 Copay will be $0 Approval letter scanned into Media Tab Will contact patient to update and complete IA [x]Tracking Spreadsheet [x]PA expiration dates Araceli Ward PharmD 01/18/25 10:42 AM [facility] [phone]07-25-2025 NoteCalled patient and LVM trying to inform her of the [employer] delays in shipment. The medication is good for 30 days after becoming room temp (24 hours from ship time). Please find out when next dose is due and make sure dose will be good to go after becoming room temp. Jamari Swenson [facility] 02/17/25 3:49 [facility]ML[facility]07-24-2025 NoteSubjective Patient ID: Radha Mendoza is a 49 y.o. female with seronegative RA, bilateral hand and right knee OA s/p R TKA complicated by cellulitis, lumbar back surgery, migraine headaches, COPD/CESARIO on CPAP, tobacco dependence, history of [place], CHF, PTSD, bipolar, anxiety and morbid obesity. She presents as follow up, was last seen on 10/03/2024 Current medication regimen: Methotrexate 25 mg (10 tabs of 2.5 mg) weekly, folate supplementation 1 mg daily. HPI Patient reports arthritis symptoms have been ok and stable since the previous visit. She notes that she does not wake up with stiffness, but stiffness comes in the early afternoon and lasts until the evening hours; sometimes improves with movement. She reports swelling in fingers but can not identify reason for when swollen. She denies any oral ulcers, nausea, vomiting with methotrexate. Dry eyes and mouth. Has not used eye drops. Keeps drink with her for dry mouth. States pilocarpine has helped immensely, wants to continue it. GERD controlled with protonix 40 mg daily. Carpal tunnel syndrome is bothersome but stable since previous visit. 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 She has wrist braces at home and states they help when she wears them but that she doesn't wear them often. Does not want to do surgery. Would not like steroid injections either. Bilateral knee OA, pain noticed mostly in left knee as has hx of right sided TKA. Patient has stated the left knee has worsened since previous visit. Worse with activity and improves with rest. She states that her left knee definitely needs replaced but she is not interested in left sided replacement anytime soon. She is interested in PT at this time, would not like an injection today. Patient continues to smoke cigarettes, 1.5 ppd. She is not interested in quitting at this time. Review of Systems Constitutional: Positive for fatigue. Negative for chills, fever and unexpected weight change. HENT: Negative for mouth sores and trouble swallowing. Dry mouth. Eyes: Negative for visual disturbance. Dry eyes. Respiratory: Positive for cough and shortness of breath. Negative for chest tightness. Cardiovascular: Positive for leg swelling. Negative for chest pain and palpitations. Gastrointestinal: Negative for abdominal pain, nausea and vomiting. GERD, controlled Genitourinary: Negative for dysuria. Musculoskeletal: Negative for arthralgias, back pain, joint swelling (occasional in fingers, none today) and myalgias. Skin: Negative for rash. 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 Negative for dizziness, light-headedness and headaches. Objective There were no vitals taken for this visit. Physical Exam Vitals reviewed. Constitutional: General: She is not in acute distress. Appearance: Normal appearance. HENT: Head: Normocephalic and atraumatic. Eyes: General: No scleral icterus. Extraocular Movements: Extraocular movements intact. Cardiovascular: Rate and Rhythm: Normal rate and regular rhythm. Heart sounds: Normal heart sounds. No murmur heard. Pulmonary: Effort: No respiratory distress. Breath sounds: No stridor. Wheezing present. No rales. Musculoskeletal: General: No swelling or deformity. Right wrist: No swelling or tenderness. Left wrist: No swelling or tenderness. Right hand: No swelling, deformity or tenderness. Decreased strength. Left hand: No swelling, deformity or tenderness. Decreased strength. Right knee: No tenderness. Left knee: Tenderness present. Right lower leg: Edema present. Left lower leg: Edema present. Skin: General: Skin is warm and dry. Findings: No rash. Neurological: General: No focal deficit present. Mental Status: She is alert. Psychiatric: Mood and Affect: Mood normal. Behavior: Behavior normal. Assessment/Plan Diagnoses and all orders for this visit: Seronegative rheumatoid arthritis (CMS/HCC) - C-reactive protein; Future - Sedimentation rate; Future - etanercept (EnbreL SureClick) 50 mg/mL (1 mL) pen injector; Inject 50 mg under the skin every 7 (seven) days. - folic acid (Folvite) 1 mg tablet; Take 1 tablet (1 mg) by mouth in the morning. Methotrexate, half-way, current use - CBC and differential; Future - Comprehensive metabolic panel; Future - folic acid (Folvite) 1 mg tablet; Take 1 tablet (1 mg) by mouth in the morning. Sjogren's syndrome, with unspecified organ involvement Screening-pulmonary TB - Quantiferon TB gold; Future Encounter for screening for other viral diseases - Hepatitis B surface antigen; Future - Hepatitis B core antibody, total; Future Chronic pain of left knee - XR knee 3 views left; Future - Ambulatory referral to Physical Therapy; Future Rheumatoid arthritis with rheumatoid factor, unspecified (CMS/HCC) - methotrexate 2.5 (more content not included)...[facility]04[facility] NoteSubjective Patient ID: Radha Mendoza is a 49 y.o. female with seronegative RA, bilateral hand and right knee OA s/p R TKA complicated by cellulitis, lumbar back surgery, migraine headaches, COPD/CESARIO on CPAP, tobacco dependence, history of [place], CHF, PTSD, bipolar, anxiety and morbid obesity. She presents as follow up, was last seen on 07/04/2024 Current medication regimen: Methotrexate 25 mg (10 tabs of 2.5 mg) weekly, folate supplementation. HPI Patient reports arthritis symptoms have been ok. She notes that symptoms are a bit worse lately with all the weather changes but otherwise stable. Morning stiffness lasting maybe up to half hour, improves with movement. She reports swelling in fingers but can not identify reason for when swollen. She has not had oral ulcers, nausea, vomiting with methotrexate. Dry eyes and mouth. Has not used eye drops. Keeps drink with her for dry mouth. States pilocarpine has helped immensely, wants to continue it. GERD controlled with protonix 40 mg daily. Carpal tunnel syndrome is bothersome. 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 She has wrist braces at home and states they help when she wears them but that she doesn't wear them often. Does not want to do surgery. Would not like steroid injections either. Bilateral knee OA, pain noticed mostly in left knee as has hx of right sided TKA. Worse with activity and improves with rest. She states that her left knee definitely needs replaced but she is not interested in left sided replacement anytime soon. She is interested in PT at this time, would not like an injection today. Patient continues to smoke cigarettes, 2 ppd. She is not interested in quitting at this time. Review of Systems Constitutional: Positive for fatigue. Negative for chills, fever and unexpected weight change. HENT: Negative for mouth sores and trouble swallowing. Dry mouth. Eyes: Negative for visual disturbance. Dry eyes. Respiratory: Positive for cough and shortness of breath. Negative for chest tightness. Cardiovascular: Positive for leg swelling. Negative for chest pain and palpitations. Gastrointestinal: Negative for abdominal pain, nausea and vomiting. GERD, controlled Genitourinary: Negative for dysuria. Musculoskeletal: Negative for arthralgias, back pain, joint swelling (occasional in fingers, none today) and myalgias. Skin: Negative for rash. 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 Negative for dizziness, light-headedness and headaches. Objective There were no vitals taken for this visit. Physical Exam Vitals reviewed. Constitutional: General: She is not in acute distress. Appearance: Normal appearance. HENT: Head: Normocephalic and atraumatic. Eyes: General: No scleral icterus. Extraocular Movements: Extraocular movements intact. Cardiovascular: Rate and Rhythm: Normal rate and regular rhythm. Heart sounds: Normal heart sounds. No murmur heard. Pulmonary: Effort: No respiratory distress. Breath sounds: No stridor. Wheezing present. No rales. Musculoskeletal: General: No swelling or deformity. Right wrist: No swelling or tenderness. Left wrist: No swelling or tenderness. Right hand: No swelling, deformity or tenderness. Decreased strength. Left hand: No swelling, deformity or tenderness. Decreased strength. Right knee: No tenderness. Left knee: Tenderness present. Right lower leg: Edema present. Left lower leg: Edema present. Skin: General: Skin is warm and dry. Findings: No rash. Neurological: General: No focal deficit present. Mental Status: She is alert. Psychiatric: Mood and Affect: Mood normal. Behavior: Behavior normal. Assessment/Plan There are no diagnoses linked to this encounter. 49 y.o. year old female with history of bilateral hand and right knee OA status post total knee replacement complicated by cellulitis, lumbar back surgery, migraine headaches, COPD/CESARIO on CPAP, history of [place], CHF, PTSD, bipolar, anxiety and morbid obesity presenting for routine follow up. Seronegative rheumatoid arthritis Long-term use of methotrexate Medication regimen: Methotrexate 25 mg (10 tabs of 2.5 mg) weekly, folate supplementation. *Presented with polyarthragias of the knees, wrists, hands, hip with AM pain/stiffness and associated synovitis Plan: - Continue [facility] medication regimen: - Methotrexate 25 mg (10 tabs of 2.5 mg) weekly - Folate supplementation. - Medication monitoring with CBC and CMP every 3 months on Methotrexate therapy. - Last done in 01/2024 and reviewed. - Will recheck labs today CMP and CBC Dry eye and dry mouth Plan: - Check Sjogren's Syndrome Antibodies - Continue Pilocarpine 7.5 mg TID Bilateral knee osteoarthritis s/p R TKA Bilateral hand osteoarthritis *in office [facility] ultrasound of the left knee on (more content not included)...[facility]03-20-2025 [facility] Follow up Visit - History & Physical CHIEF COMPLAINT Chief Complaint Patient presents with Vomiting HISTORY OF PRESENT ILLNESS: Radha Mendoza is a 49 y.o. female established patient. She was referred for a direct EGD to follow up on her history of GERD PMH also includes COPD, PTSD, Depression, CHF, biploar 2 disorder and chronic back pain EGD was done 07/26/24 and showed retained food in the stomach, but otherwise normal. Biopsies neg for h pylori. States vomiting started about a year ago when she started Trulicity. Currently on metformin States recent A1c was 6.2 Report ongoing vomiting currently. States vomits about 1-3 times/ week. States has no warning . Reports intentional weight loss of 25 lbs. States has been eating smaller meals more frequently. Denies change in bowel habit, no blood in the stool, stools are not dark No previous colonoscopy. PREVIOUS LABS/IMAGING/ENDOSCOPY: === 09/29/23 === CT TRANSFER OF OUTSIDE FILMS === 09/03/23 === XR LUMBAR SPINE COMPLETE 4+ VIEWS - Impression - Posterior gabbi pedicle screw fixation L4-S1, L5-S1 interbody cage device. No definite hardware complication. Adjacent segment disease. Moderate to severe disc height loss at L3-4, intradiscal vacuum phenomenon, abnormal segmental motion at this location [7 mm movement between flexion and extension]. Moderate colonic stool burden. Baclofen pump. Electronically signed: Francisco Couch. LABORATORY DATA: CBC: Lab Results Component Value Date WBC 6.42 02/04/2024 RBC 4.74 02/04/2024 HGB 13.2 02/04/2024 HCT 42.2 02/04/2024 MCV 89.0 02/04/2024 RDW 17.5 (H) 02/04/2024 PLT 251 02/04/2024 PT/INR Lab Results Component Value Date PT 12.1 (L) 02/06/2022 INR 0.89 (L) 02/06/2022 BMP: Lab Results Component Value Date NA 140 02/04/2024 K 3.7 02/04/2024 CL 103 02/04/2024 BUN 12 02/04/2024 CREATININE 0.83 02/04/2024 EGFR 85.8 02/04/2024 GLU 85 02/06/2022 LFTs: Lab Results Component Value Date BILITOT 0.5 02/04/2024 BILIDIR 0.1 10/27/2022 ALKPHOS 78 02/04/2024 AST 13 02/04/2024 ALT 13 02/04/2024 ALBUMIN 4.1 02/04/2024 PROT 6.9 02/04/2024 Celiac Serology: No results found for: TTGA , IGA B12/Folate/Iron studies: No results found for: [id number] , FOLATE , IRON , TIBC , UIBC , IRONSAT , FERRITIN IBD Biomarkers Lab Results Component Value Date CRP 7.5 (H) 10/27/2022 Lab Results Component Value Date SEDRATE 5 10/27/2022 Viral Hepatitis No results found for: HEPAIGM , HAV , HEPBSAG , HEPBSAB , HEPBEAB , HEPBIGM , HEPBCAB , HEPBCOREAB , HBVNAT , HCVSCR , HEPCAB , HCVNAT , HCVPCR , HCVTMA No results found for: GGT Liver Workup No results found for: SMOOTHMUSCAB , MITOAB No results found for: LUCINDA , SMOOTHMUSCAB , CERULOPLSM , [id number] , TTGA , IGA , TSH , FREET4 , AFP No results found for: TSH , [id number] , U8SRUEJ , THYROIDAB Pancreatitis Lab Results Component Value Date CALCIUM 8.9 02/04/2024 No results found for: HIV1X2 HISTORY: Problem list: Patient Active Problem List Diagnosis Arthritis of right knee Knee pain Acquired spondylolisthesis Bipolar II disorder (CMS/HCC) Morbid obesity with BMI of 50.0-59.9, adult (CMS/HCC) Chest pain Chronic obstructive lung disease (CMS/HCC) Acute pain Depressive disorder Chronic pain syndrome Dyslipidemia Benign hypertensive cardiomyopathy with heart failure (CMS/HCC) Failed back syndrome Low back pain Inflammation of sacroiliac joint Lumbar post-laminectomy syndrome Major depressive disorder, recurrent episode, moderate (CMS/HCC) Generalized anxiety disorder Panic disorder Syncope Tobacco abuse Status post total knee replacement using cement, right Bilateral carpal tunnel syndrome Methotrexate, aerospace control and warning systems, current use Seronegative rheumatoid arthritis (CMS/HCC) Osteoarthritis of both knees Osteoarthritis of both hands Tobacco dependence Chronic diastolic congestive heart failure (CMS/HCC) N&V (nausea and vomiting) CESARIO (obstructive sleep apnea) Radiculopathy, lumbar region GUALLPA (dyspnea on exertion) Dysmenorrhea Menorrhagia with irregular cycle Neuropathy Postoperative visit S/P endometrial ablation Congestive heart failure (CMS/HCC) Chronic obstructive pulmonary disease (CMS/HCC) Past Medical History: Past Medical History: Diagnosis Date Back pain Bipolar disorder (CMS/HCC) CHF (congestive heart failure), NYHA class I (CMS/HCC) Chronic mental illness COPD (chronic obstructive pulmonary disease) (CMS/HCC) Deep vein thrombosis (CMS/HCC) Depression Diabetes mellitus (CMS/HCC) Dyslipidemia Dyspepsia Epigastric pain GERD (gastroesophageal reflux disease) Heart attack (CMS/HCC) Hyperlipidemia Hypertension Neuropathy Obesity Osteoarthritis PTSD (post-traumatic stress disorder) Vomiting Past Surgical History: Past Surgical Histo (more content not included)...[facility]02-04-[facility]25 NotePatient: Radha Mendoza Procedure Information Anesthesia Start Date/Time: 07/26/24 0833 Scheduled providers: Alexandria Worthington MD; KATY Lund; Steven Anderson MD Procedure: EGD Location: [facility] Main Operating Room Relevant Problems Anesthesia (+) CESARIO (obstructive sleep apnea) (-) History of anesthesia complications Cardio (+) Chronic diastolic congestive heart failure (CMS/HCC) Pulmonary (+) Chronic obstructive lung disease (CMS/HCC) (+) GUALLPA (dyspnea on exertion) Other (+) Arthritis of right knee (+) Seronegative rheumatoid arthritis (CMS/HCC) Past Medical History: Diagnosis Date Back pain Bipolar disorder (CMS/HCC) CHF (congestive heart failure), NYHA class I (CMS/HCC) Chronic mental illness COPD (chronic obstructive pulmonary disease) (CMS/HCC) Deep vein thrombosis (CMS/HCC) Depression Diabetes mellitus (CMS/HCC) Dyslipidemia Dyspepsia Epigastric pain GERD (gastroesophageal reflux disease) Heart attack (CMS/HCC) Hyperlipidemia Hypertension Neuropathy Obesity Osteoarthritis PTSD (post-traumatic stress disorder) Vomiting Past Surgical History: Procedure Laterality Date CARDIAC CATHETERIZATION SECTION, CLASSIC SECTION, LOW TRANSVERSE DILATION AND CURETTAGE OF UTERUS HERNIA REPAIR INTRATHECAL PUMP IMPLANTATION managed by Dr. Dejesus. KNEE ARTHROPLASTY LUMBAR FUSION 2010 Dr. Duffy MENISCECTOMY SPINAL CORD STIMULATOR IMPLANT SPINAL CORD STIMULATOR REMOVAL SPINAL FUSION 2011 Dr. Stoddard TONSILLECTOMY Social History Tobacco Use Smoking status: Every Day Current packs/day: 2.00 Types: Cigarettes Passive exposure: Current Smokeless tobacco: Never Vaping Use Vaping status: Never Used Substance Use Topics Alcohol use: Never Drug use: Yes Types: Marijuana Labs Lab Results Component Value Date WBC 6.42 02/04/2024 HGB 13.2 02/04/2024 HCT 42.2 02/04/2024 PLT 251 02/04/2024 Lab Results Component Value Date NA 140 02/04/2024 K 3.7 02/04/2024 CO2 28 02/04/2024 CL 103 02/04/2024 BUN 12 02/04/2024 CREATININE 0.83 02/04/2024 GLUCOSE 147 (H) 02/04/2024 CALCIUM 8.9 02/04/2024 Lab Results Component Value Date PT 12.1 (L) 02/06/2022 INR 0.89 (L) 02/06/2022 No echocardiogram results found for the past 12 months Clinical information reviewed: Tobacco Allergies Meds Med Hx Surg Hx Fam Hx Soc Hx Physical Exam Airway Mallampati: III TM distance: >3 FB Neck ROM: full Cardiovascular Rhythm: regular Rate: normal Dental Pulmonary (+) decreased breath sounds Abdominal Anesthesia Plan ASA 3 MAC (Patient chart (PMH/PSH/Social/Meds/Allergies/etc) was reviewed prior to patient interview. Pt waives test, aware of risk. Plan Monitored Anesthesia Care (MAC) with backup general anesthesia if needed. Specifically discussed the risks of oral/airway instrumentation (if needed) including (but not limited to) lip, gum, and teeth trauma. This has the potential to cause significant dental damage including tooth loss. Patient expressed understanding and wished to proceed. Patient was interviewed and evaluated prior to the start of the anesthetic. Note was inputted later.) intravenous induction Anesthetic plan and risks discussed with patient. Plan discussed with CAA. [facility] Note Patient: Radha Mendoza Procedure Summary Date: 07/26/24 Room / Location: [facility] Main Operating Room Anesthesia Start: 832 Anesthesia Stop: 850 Procedure: EGD Diagnosis: Vomiting, unspecified vomiting type, unspecified whether nausea present Chronic gastroesophageal reflux disease Scheduled Providers: Alexandria Worthington MD; KATY Lund; Steven Anderson MD Responsible Provider: Steven Anderson MD Anesthesia Type: MAC ASA Status: Not recorded Anesthesia Type: MAC Vitals Value Taken Time BP 116/66 07/26/24 0850 Temp 37 ???C (98.6 ???F) 07/26/24 0850 Pulse 82 07/26/24 0850 Resp 16 07/26/24 0850 SpO2 94 % 07/26/24 0850 Anesthesia Post Evaluation Patient location during evaluation: PACU Patient participation: complete - patient participated Level of consciousness: awake Pain management: adequate Cardiovascular status: acceptable Respiratory status: acceptable Hydration status: acceptable Comments: Patient was evaluated for PACU discharge prior to leaving. Note was inputted later. Patient is hemodynamically stable and is able to be discharged from PACU per anesthesia protocol. No notable events documented.[facility]01-30-[facility]25 History of Present illness Narrative* Lacho Alves, SONI - 07/21/2024 4:00 PM EST Patient: Radha Mendoza : 1975 PCP: No primary care provider on file. SUBJECTIVE This is a 49 y.o. female that presents today with a CC of elongated, thick nails. Pt states nails have been elongated and thick for many years and cause pain with ambulation in shoegear. Pt has tried previous treatment with minimal relief. Pt presents today for nail care and treatment. Patient is DM2 Pt also presents today of complaints of itching to feet and toes. They state they have tried treatments of none with no relief. Has history of left 3rd digit ingrowing type nail in the past was placed on oral antibiotics with patient stating negative drainage over the last week but has some redness to the nail borders. Patient denies n/f/v/c. Allergies: Allergies Allergen Reactions Dulaglutide Nausea And Vomiting and GI intolerance Doxycycline Hives and Unknown Nsaids Unknown Pt takes methotrexate and is not able to take NSAIDS Oxytocin Unknown Other Reaction(s): anaphylactic shock Sumatriptan Unknown Other Reaction(s): feels like on fire Nixon like head was on fire Past Medical History: Past Medical History: Diagnosis Date Diabetes ([facility]) Pap smear for cervical cancer screening 2021 neg w/shammo Screening mammogram, encounter for 2022 neg Medications: Current Outpatient Medications: albuterol HFA 90 mcg/act inhaler, every 4 (four) hours., Disp: , Rfl: atorvastatin (Lipitor) 10 MG tablet, Oral for 30 Days, Disp: , Rfl: busPIRone (Buspar) 30 MG tablet, Take 30 mg by mouth in the morning and 30 mg before bedtime., Disp: , Rfl: DULoxetine (Cymbalta) [address] capsule, 1 capsule., Disp: , Rfl: furosemide (Lasix) 80 MG tablet, 1 (one) time each day at the same time., Disp: , Rfl: hydrOXYzine pamoate (Vistaril) 50 MG capsule, as directed Orally twice daily NEEDED, Disp: , Rfl: lamoTRIgine (LaMICtal) 100 MG tablet, 1 tablet Orally MORNING for 90 days, Disp: , Rfl: lisinopril 20 MG tablet, 1 (one) time each day at the same time., Disp: , Rfl: methotrexate 2.5 MG tablet, Take 2.5 mg by mouth 1 (one) time per week., Disp: , Rfl: metoprolol succinate XL (Toprol-XL) 50 MG 24 hr tablet, 1 (one) time each day at the same time., Disp: , Rfl: omeprazole (PriLOSEC) [address] capsule, take 1 capsule by mouth every morning 30 MINUTES BEFORE MORNING MEAL for 30, Disp: , Rfl: tiZANidine (Zanaflex) 4 MG tablet, every 8 (eight) hours., Disp: , Rfl: traZODone (Desyrel) 150 MG tablet, 1 (one) time each day at the same time., Disp: , Rfl: Trelegy Ellipta 200-62.5-25 MCG/ACT aerosol powder , Inhale 1 puff in the morning., Disp: , Rfl: Vraylar 4.5 MG capsule, 1 capsule., Disp: , Rfl: Social History: Social History Socioeconomic History Marital status: Spouse name: Not on file Number of children: Not on file Years of education: Not on file Highest education level: Not on file Occupational History Not on file Tobacco Use Smoking status: Every Day Types: Cigarettes Smokeless tobacco: Not on file Substance and Sexual Activity Alcohol use: Not on file Drug use: Not on file Sexual activity: Yes control/protection: Female Sterilization Other Topics Concern Not on file Social History Narrative Merged History Encounter Social Drivers of Health Financial Resource Strain: Not on file Food Insecurity: No Food Insecurity (03/31/2023) Received from [facility] Hunger Screening Within the past 12 months we worried whether our food would run out before we got money to buy more.: Never True Within the past 12 months the food we bought just didn't last and we didn't have money to get more.: Never True Transportation Needs: Not on file Physical Activity: Not on file Stress: Not on file Social Connections: Not on file Intimate Partner Violence: Unknown (09/03/2023) Received from [facility] Humiliation, Afraid, Rape, and Kick questionnaire Fear of Current or Ex-Partner: No Emotionally Abused: Not on file Physically Abused: Not on file Sexually Abused: Not on file Housing Stability: Not on file ROS: General: denies fever, chills, fatigue, malaise Gastrointestinal: denies abdominal pain, ulcers, or changes in appetite or bowel habits Musculoskeletal: denies arthritis, denies loss of strength, pain to hip, knees, back Cardiovascular: denies CP, palpitations, irregular rhythms. Positive history of [place] in the past OBJECTIVE LE EXAM: DERM: Elongated thick yellow crumbly nails digits 1 through 10. Negative hair growth with thin shiny atrophic skin bilaterally. Slight erythema of the proximal nail fold of left 3rd digit with negative drainage Small dry patch like lesions and scaly in moccasin distribution bilaterally VASC: Negative DP and negative PT pedal pulses NEURO: 5.07 [place] Chandana monofilament test intact to digits and forefoot bilaterally 125Hz tuning fork diminished to 1st MPJ bilaterally ORTHO: Positive pain on palpation to toenails of the left 1,2,3,4,5 toes and right 1,2,3,4,5 toes ASSESSMENT 1. Diabetes mellitus due to underlying condition with diabetic polyneuropathy, without long-term current use of insulin ([facility]) 2. Pain due to onychomycosis of toenails of both feet 3. Tinea pedis of both feet 4. Abscess, toe, left PLAN Discussed proper foot care with patient today. Debride nails in length and thickness digits 1 through 10 Patient educated today on proper diabetic foot care including monitoring feet daily for any signs of infection openings in the skin or irregularities to both feet. Patient had a diabetic neurologicalexam today to both their feet and discussed proper shoe gear. Patient education concerning tinea infection. Discussed use of antifungal cream and foot powders aswell as good foot hygiene and prevention measures. Patient was given a prescription today for antifungal. Patient placed on oral antibiotics for prophylaxis and if condition worsens to the left 3rd toe to contact Podiatry for possible nail avulsion Lacho Alves DPM documented in this encounterSaint Luke's Health [id number] NoteSubjective Patient ID: Radha Mendoza is a 48 y.o. female with seronegative RA, bilateral hand and right knee OA s/p R TKA complicated by cellulitis, lumbar back surgery, migraine headaches, COPD/CESARIO on CPAP, tobacco dependence, history of NJ, CHF, PTSD, bipolar, anxiety and morbid obesity. She presents as follow up, was last seen on 02/04/2024 Current medication regimen: Methotrexate 25 mg (10 tabs of 2.5 mg) weekly, folate supplementation. HPI Patient reports arthritis symptoms have been ok. She notes that symptoms are worst on cold damp days. Morning stiffness lasting maybe up to half hour, improves with movement. She reports swelling in fingers but can not identify reason for when swollen. She has not had oral ulcers, nausea, vomiting with methotrexate. Dry eyes and mouth. Has not used eye drops. Keeps drink with her for dry mouth. GERD controlled with protonix 40 mg daily. Carpal tunnel syndrome is bothersome. 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 She has wrist braces at home and states they help when she wears them but that she doesn't wear them often. Does not want to do surgery. Would not like steroid injections either. Bilateral knee OA, pain noticed mostly in left knee as has hx of right sided TKA. Worse with activity and improves with rest. Not interested in left sided replacement anytime soon. Patient continues to smoke cigarettes, 2 ppd. She is not interested in quitting at this time. Review of Systems Constitutional: Positive for fatigue. Negative for chills, fever and unexpected weight change. HENT: Negative for mouth sores and trouble swallowing. Dry mouth. Eyes: Negative for visual disturbance. Dry eyes. Respiratory: Positive for cough and shortness of breath. Negative for chest tightness. Cardiovascular: Positive for leg swelling. Negative for chest pain and palpitations. Gastrointestinal: Negative for abdominal pain, nausea and vomiting. GERD, controlled Genitourinary: Negative for dysuria. Musculoskeletal: Negative for arthralgias, back pain, joint swelling (occasional in fingers, none today) and myalgias. Skin: Negative for rash. 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 Negative for dizziness, light-headedness and headaches. Objective Visit Vitals BP 106/68 (BP Location: Right arm, Patient Position: Sitting, BP Cuff Size: Adult) Pulse 78 Physical Exam Vitals reviewed. Constitutional: General: She is not in acute distress. Appearance: Normal appearance. HENT: Head: Normocephalic and atraumatic. Eyes: General: No scleral icterus. Extraocular Movements: Extraocular movements intact. Cardiovascular: Rate and Rhythm: Normal rate and regular rhythm. Heart sounds: Normal heart sounds. No murmur heard. Pulmonary: Effort: No respiratory distress. Breath sounds: No stridor. Wheezing present. No rales. Musculoskeletal: General: No swelling, tenderness or deformity. Right lower leg: Edema present. Left lower leg: Edema present. Skin: General: Skin is warm and dry. Findings: No rash. Neurological: General: No focal deficit present. Mental Status: She is alert. Psychiatric: Mood and Affect: Mood normal. Behavior: Behavior normal. Assessment/Plan Diagnoses and all orders for this visit: Seronegative rheumatoid arthritis (CMS/HCC) Methotrexate, aerospace control and warning systems, current use - CBC and differential; Future - Comprehensive metabolic panel; Future Bilateral carpal tunnel syndrome Osteoarthritis of both hands, unspecified osteoarthritis type Sjogren's syndrome, with unspecified organ involvement (CMS/HCC) - Sjogrens syndrome antibodies A and B; Future - pilocarpine (Salagen) 7.5 mg tablet; Take 1 tablet (7.5 mg) by mouth three times daily. 48 y.o. year old female with history of bilateral hand and right knee OA status post total knee replacement complicated by cellulitis, lumbar back surgery, migraine headaches, COPD/CESARIO on CPAP, history of NJ, CHF, PTSD, bipolar, anxiety and morbid obesity presenting for routine follow up. Seronegative rheumatoid arthritis Long-term use of methotrexate Medication regimen: Methotrexate 25 mg (10 tabs of 2.5 mg) weekly, folate supplementation. *Presented with polyarthragias of the knees, wrists, hands, hip with AM pain/stiffness and associated synovitis Plan: - Continue [facility] medication regimen: - Methotrexate 25 mg (10 tabs of 2.5 mg) weekly - Folate supplementation. - Medication monitoring with CBC and CMP every 3 months on Methotrexate therapy. - Last done in 01/2024 and reviewed. - Will recheck labs today CMP and CBC Dry eye and dry mouth Plan: - Check Sjogren's Syndrome Antibodies - Start Pilocarpine 7.5 mg TID Bilateral knee osteoarthritis s/p R TKA Bilateral hand osteoarthritis *in office [facility] ultrasound of the left knee on 04/27/20 (more content not included)...[facility]12-12-2024 NoteUTP CARDIOLOGY PROGRESS NOTE HPI: Radha Mendoza is a 48 y.o. female here for routine F/U HPI Presents today for known Chronic heart failure with preserved ejection fraction, morbid obesity, hypertension, dyslipidemia, history of chronic tobacco abuse, angiographically normal coronary arteries, who presents today for follow up. Patient here for 1 mo follow up diastolic heart failure, hypertension, and GUALLPA. She was started on Farxiga previously for her symptoms, which improved significantly. She self discontinued spirinolactone because it was making her urinate. Patient says lightheadedness has resolved. No new complaints or concerns. She is pleased wit how she is doing. No caridac complaints or concerns. No chest pain or shortness of breath. No near syncope or syncope. .Cardiology ROS: 10 point ROS is performed and is negative unless otherwise specified in HPI. Visit Vitals Ht 1.549 m (5' 1 ) BMI 53.30 kg/m??? Smoking Status Every Day BSA 2.35 [...] morning. dapagliflozin propanediol (Farxiga) 10 mg Take 1 tablet (10 mg) by mouth in the morning. 90 tablet 3 DULoxetine (Cymbalta) [address] capsule Take [...] mg) by mouth once weekly. 40 tablet 8 metoprolol succinate XL (Toprol-XL) 25 mg 24 [...] Thought content normal. Judgment: Judgment normal. Labs: 07/27/23 CBC normal, Renal and liver function normal, Lipid levels fairly well controlled with LDL 101 Component Ref Range & Units 4 wk ago 10 mo ago 1 yr ago Auto WBC 4.00 - 10.60 10*3/uL 8.40 8.38 6.25 RBC 3.80 - 5.00 10*6/uL 4.73 4.88 4.88 Hemoglobin 12.0 - 15.0 g/dL 13.6 14.2 14.2 Hematocrit (more content not included)...[facility]03-06-2024 Miscellaneous Notes* Telephone Encounter - Fatmata CHERRY Barger - 08/26/2023 9:55 AM EST PER ADELA PT WANTS TO CANCEL APPT SCHEDULED FOR 08/27/2023. PHONED PT AND LM ON VM TO CONTACT OFFICE IF SHE DOES INDEED WANT TO CANCEL AND RESCHEDULE THIS APPT. documented in this encounterVermont State HospitalVeeda03-06-[facility]24 Telephone encounter Note* Telephone Encounter - Fatmata Barger CMA - 08/26/2023 9:55 AM EST PER ADELA PT WANTS TO CANCEL APPT SCHEDULED FOR 08/27/2023. PHONED PT AND LM ON TO CONTACT OFFICE IF SHE DOES INDEED WANT TO CANCEL AND RESCHEDULE THIS APPT. [facility]* Encounter Date Diagnosis Assessment Notes Treatment Notes Treatment Clinical Notes May, Acute cellulitis (ICD-10 - L03.9 0) You were seen here today for redness, [...] your primary care provider in 3-5 days. [employer] Other 09-14-2023 Hospital Discharge instructions* Discharge Instructions* Nichelle Cunha [...] saturates the bandage documented in this encounterB[facility] NotePROCEDURE: XR HIPS MARTHA 5V W PELVIS HISTORY: Joint pain COMPARISON: None. FINDINGS: BONES:No fracture, acute abnormality, or significant arthropathy. SOFT TISSUES:No visible soft tissue swelling. EFFUSION:None visible. OTHER: Mechanical fusion and degenerative changes of lower lumbar spine. IMPRESSION: 1. No acute bone abnormality or significant degenerative changes of the hip joints. Electronically authenticated by: GILL MORENO Date: 2022-08-13 10:48[facility]12-07-2022 Miscellaneous Notes* Telephone Encounter - Bandar Laguna - 05/28/2022 2:21 PM EST Pt is being referred by [facility] Per Karina Antunez schedule new pt consult once we have a bxdate. They will call us when it is scheduled. [facility] in this encounterPeoples [facility]07-14-2022 History of Present illness Narrative* Katy Guo RN - 01/02/2022 9:00 AM EDT Patient did not show for appointment at 9am. Left message to call to reschedule. Dr. Arenas office notified. [facility] Care[facility] Phone: evaluation note* Diagnosis Irregular menstrual bleeding Irregular menstrual cycle Women's annual routine gynecological examination documented in this encounter [employer] Phone: [email or web address] noteNo assessment information available [facility] Work Phone: Evaluation note* Diagnosis Abscess, toe, left- Primary Diabetes mellitus due to underlying condition with diabetic polyneuropathy, without long-term current use of insulin (CMS/HCC) Pain due to onychomycosis of toenails of both feet Tinea pedis of both feet documented in this encounter [facility] HealthcareEvaluation note* Diagnosis Abscess, toe, left- Primary Tinea pedis of both feet Diabetes mellitus due to underlying condition with diabetic polyneuropathy, without long-term current use of insulin (CMS/HCC) documented in this encounter [facility] HealthcareEvaluation note* Diagnosis Tinea pedis of both feet- Primary Diabetes mellitus due to underlying condition with diabetic polyneuropathy, without long-term current use of insulin (HCC) Pain due to onychomycosis of toenails of both feet documented in this encounter [facility] HealthcareEvaluation note* Diagnosis Chronic obstructive pulmonary disease, unspecified COPD type (CMS-HCC)- Primary Persistent asthma without complication, unspecified asthma severity documented in this encounter [facility] Narrative - Reported* Type Description Date Medical History Depression Medical HistoryBack painMedical HistoryCongestive heart failureMedical History COPD (chronic obstructive pulmonary disease)Medical HistoryNeuropathyMedical HistoryPost-traumatic stress disorder, unspecifiedMedical HistoryBipolar 2 disorderSurgical Historyknee surgery-rightSurgical HistorytonsillectomySurgical HistoryesophagectomySurgical HistoryC sectionSurgical HistoryD&CSurgical History back surgerySurgical Historyuterine ablationSurgical Historypain pump battery changeHospitalization Historysee above [employer] Other History of Present illness Narrative* Lacho Alves, DPSalvador - 07/27/2024 3:30 PM EST Patient: Radha Mendoza : 1975 PCP: No primary care provider on file. SUBJECTIVE Patient presents today for follow up of left 3rd ingrowing toenail and been taking oral antibioticsand states negative drainage with some redness and pain to left 3rd digit Patient denies n/f/v/c. Patient is also type 2 diabetic. Patient has been taking oral antibiotics for the past few days Pt presents today for follow up of tinea pedis. Pt states they have been using medicated antifungalcream with positive improvement And states minimal itching to feet and toes. Allergies: Allergies Allergen Reactions Dulaglutide Nausea And Vomiting and GI intolerance Doxycycline Hives and Unknown Nsaids Unknown Pt takes methotrexate and is not able to take NSAIDS Oxytocin Unknown Other Reaction(s): anaphylactic shock Sumatriptan Unknown Other Reaction(s): feels like on fire Nixon like head was on fire Past Medical History: Past Medical History: Diagnosis Date Diabetes ([facility]) Pap smear for cervical cancer screening 2021 neg w/shammo Screening mammogram, encounter for 2022 neg Medications: Current Outpatient Medications: albuterol HFA 90 mcg/act inhaler, every 4 (four) hours., Disp: , Rfl: atorvastatin (Lipitor) 10 MG tablet, Oral for 30 Days, Disp: , Rfl: busPIRone (Buspar) 30 MG tablet, Take 30 mg by mouth in the morning and 30 mg before bedtime., Disp: , Rfl: cephalexin (Keflex) 500 MG capsule, Take 1 capsule (500 mg) by mouth in the morning and 1 capsule (500 mg) in the evening and 1 capsule (500 mg) before bedtime. Do all this for 10 days. Take one tablet by mouth three times daily., Disp: 30 capsule, Rfl: 0 clotrimazole-betamethasone (Lotrisone) cream, Apply 1 application topically in the morning and 1 application before bedtime., Disp: 45 g, Rfl: 1 DULoxetine (Cymbalta) [address] capsule, 1 capsule., Disp: , Rfl: furosemide (Lasix) 80 MG tablet, 1 (one) time each day at the same time., Disp: , Rfl: hydrOXYzine pamoate (Vistaril) 50 MG capsule, as directed Orally twice daily NEEDED, Disp: , Rfl: lamoTRIgine (LaMICtal) 100 MG tablet, 1 tablet Orally MORNING for 90 days, Disp: , Rfl: lisinopril 20 MG tablet, 1 (one) time each day at the same time., Disp: , Rfl: methotrexate 2.5 MG tablet, Take 2.5 mg by mouth 1 (one) time per week., Disp: , Rfl: metoprolol succinate XL (Toprol-XL) 50 MG 24 hr tablet, 1 (one) time each day at the same time., Disp: , Rfl: omeprazole (PriLOSEC) [address] capsule, take 1 capsule by mouth every morning 30 MINUTES BEFORE MORNING MEAL for 30, Disp: , Rfl: tiZANidine (Zanaflex) 4 MG tablet, every 8 (eight) hours., Disp: , Rfl: traZODone (Desyrel) 150 MG tablet, 1 (one) time each day at the same time., Disp: , Rfl: Trelegy Ellipta 200-62.5-25 MCG/ACT aerosol powder , Inhale 1 puff in the morning., Disp: , Rfl: Vraylar 4.5 MG capsule, 1 capsule., Disp: , Rfl: Social History: Social History Socioeconomic History Marital status: Spouse name: Not on file Number of children: Not on file Years of education: Not on file Highest education level: Not on file Occupational History Not on file Tobacco Use Smoking status: Every Day Types: Cigarettes Smokeless tobacco: Not on file Substance and Sexual Activity Alcohol use: Not on file Drug use: Not on file Sexual activity: Yes control/protection: Female Sterilization Other Topics Concern Not on file Social History Narrative Merged History Encounter Social Drivers of Health Financial Resource Strain: Not on file Food Insecurity: No Food Insecurity (03/31/2023) Received from [facility] Hunger Screening Within the past 12 months we worried whether our food would run out before we got money to buy more.: Never True Within the past 12 months the food we bought just didn't last and we didn't have money to get more.: Never True Transportation Needs: Not on file Physical Activity: Not on file Stress: Not on file Social Connections: Not on file Intimate Partner Violence: Unknown (09/03/2023) Received from [facility] Humiliation, Afraid, Rape, and Kick questionnaire Fear of Current or Ex-Partner: No Emotionally Abused: Not on file Physically Abused: Not on file Sexually Abused: Not on file Housing Stability: Not on file ROS: General: denies fever, chills, fatigue, malaise GI: denies loose or watery stool on antibiotic OBJECTIVE LE EXAM: DERM: Elongated thick yellow crumbly nails digits 1 through 10. Negative hair growth with thin shiny atrophic skin bilaterally. Slightly diminished erythema of the proximal nail fold of left 3rd digit with negative drainage Diminished dry patch like lesions and scaly in moccasin distribution bilaterally VASC: Negative DP and negative PT pedal pulses NEURO: 5.07 [place] Chandana monofilament test intact to digits and forefoot bilaterally 125Hz tuning fork diminished to 1st MPJ bilaterally ORTHO: Positive pain on palpation to toenails of the left 1,2,3,4,5 toes and right 1,2,3,4,5 toes ASSESSMENT 1. Abscess, toe, left 2. Tinea pedis of both feet 3. Diabetes mellitus due to underlying condition with diabetic polyneuropathy, without long-term current use of insulin ([facility]) PLAN Patient refused total temporary nail avulsion today and would like to continue with antibiotics Continue with antifungal creams daily Patient to follow up in 1 week to re-evaluate Lacho Alves DPM documented in this encounterNOSouthPointe HospitalInstructionsNot on filedocumented in this encounterProDetwiler Memorial Hospital SystemInstructionsNot on filedocumented in this encounterProDetwiler Memorial Hospital System Summary Purpose Family History Relationship Condition Age at Onset Recorded Date/T rola mother Diabetes mellitus Unknown Heart diseaseUnknown Advance Directives Advance Directive Response Recorded Date/ Time Advance Directives No July 20, 2017 3:38pm Chief Complaint and Reason for Visit Chief Complaint Referred for Celluli tis and DVT RLE Chief Complaint possible cellulitis Additional Source Comments Care Teams (unrecognized sec tion and content) Team MemberRelationshipSpecialtyStart DateEnd Date Wally Ghosh MD [address] [place] [address] PCP - General11/06/21Team MemberRelationshipSpecialtyStart DateEnd Date Mingo Thapanikki [address] [place] [address] PCP - Generalmily Medicine02/19/17Team MemberRelationshipSpecialtyStart DateEnd Date Mingo Thapanikki [address] [place] [address] [facility] - [facility]02/19/17Team MemberRelationshipSpecialtyStart DateEnd Date Donnie Kaminski APRN - [employer] [address] [place] [address] [facility] - [facility]/19/23 Team Status: Active Member Role Status Dates Bertin Pelaez PA-C Primary Care Provider Active Team Status: Inactive Member Role Status Dates Joellen Tomlinson MD Attending Provider Active Start: January 14, 2024 End: January 14, 2024Stone Sweetimary Care Provider, Referring Provider ActiveStart: January 14, 2024 End: January 14, 2024 Team Status: Inactive Member Role Status Dates Bertin Pelaez PA-C Primary Care Provider Active Start: April 14, 2024 End: April 14, 2024Vik Meyers ProviderActiveStart: April 14, 2024 End: April 14, 2024Team MemberRelationshipSpecialtyStart DateEnd Date Wally Ghosh MD [address] [place] [address] PCP - GeneralInternal Medicine08/08/21Team MemberRelationshipSpecialtyStart Date End Date Bertin Pelaez MD [address] [place] [address] PCP - GeneralPhysician Assistant/Team MemberRelationshipSpecialtyStart DateEnd Date Bertin Pelaez MD [address] [place] [address] PCP - GeneralPhysician Assistant2/Team MemberRelationshipSpecialtyStart DateEnd Date Bertin Pelaez MD [address] [place] [address] PCP - GeneralPhysician Assistant08/17/24Team MemberRelationshipSpecialtyStart DateEnd Date Bertin Pelaez MD [address] [place] [address] PCP - GeneralPhysician Assistant/Team MemberRelationshipSpecialtyStart DateEnd Date Wally Ghosh MD [address] [place] [address] PCP - GeneralInternal Medicine08/08/21 INFORMATION SOURCE (unrecogn ized section and content) DATE CREATED AUTHOR 01/08/2022 [facility] DATE CREATED AUTHOR AUTHOR'S ORGANIZ ATION 03/03/2022 [facility] DATE CREATED AUTHOR AUTHOR'S ORGANIZ ATION 05/02/2022 [facility] DATE CREATED AUTHOR AUTHOR'S ORGANIZ ATION 05/31/2022 [facility] DATE CREATED AUTHOR AUTHOR'S ORGANIZ ATION 10/29/2022 [facility] DATE CREATED AUTHOR AUTHOR'S ORGANIZ ATION 03/07/2023 [facility] DATE CREATED AUTHOR AUTHOR'S ORGANIZ ATION 08/25/2023 [facility] DATE CREATED AUTHOR AUTHOR'S ORGANIZ ATION 09/09/2023 [facility] DATE CREATED AUTHOR AUTHOR'S ORGANIZ ATION 03/15/2025 [facility] DATE CREATED AUTHOR AUTHOR'S ORGANIZ ATION 03/23/2025 [facility] DATE CREATED AUTHOR AUTHOR'S ORGANIZ ATION 03/27/2025 [facility] EPIC DATE CREATED AUTHOR AUTHOR'S ORGANIZ ATION 04/23/2025 [facility] DATE CREATED AUTHOR AUTHOR'S ORGANIZ ATION 05/02/2025 [facility] DATE CREATED AUTHOR AUTHOR'S ORGANIZ ATION 05/03/2025 [facility] [facility] Comments (unrecognize d section and content) In the event this informatio n is protected by the Federal Confidentiality of Alcohol and Drug Abuse Patient Records regulations: The Federal rules restrict any use of the information to criminally investigate or prosecute any alcohol or drug abuse patient.[facility] the event this information is protected by the Federal Confidentiality of Alcohol and Drug Abuse Patient Records regulations: The Federal rules restrict any use of the information to criminally investigate or prosecute any alcohol or drug abuse patient.[facility] Reason for Visit (unrecogniz ed section and content) ReasonCommentsAppointmentSpecialtyDiagnoses / ProceduresReferred By Contact Referred To Contact Diagnoses Post laminectomy syndrome Post laminectomy syndrome [M96.1] Procedures [place] IMPLTJ/RPLCMT ITHCL/EDRL DRUG NFS PRGRBL PUMP INTERTHECAL PAIN PUMP REPLACEMENT Mohit Dejesus MD [address] [place] [address] [facility] [address] [place] [address] Referral IDStatusReasonStart DateExpiration DateVisits RequestedVisits [id number] Foot CareDm nail careReasonComments Follow-upIngrown follow up- toe discoloredReasonCommentsDM Foot Care Scheduled Active and Recently Administ ered Medications (unrecognized section and content) Medication Order/ sodium chloride flush 0.9 % injection 5-40 mL 5-40 mL, IntraVENous, EVERY 12 HOURS SCHEDULED (2 times per day), First dose on Telma 03/05/23 at 2100, Until Discontinued, For Line Patency: Peripheral IV = 5 mL; Midline or Central Line = 10 mL/lumen.If following IV push medication, administer flush at same rate as the IV push. Flush volume is determined by type of infusion therapy being given. For non-viscous solutions use: Peripheral IV = 5 mL Midline or Central Line = 10 mL/lumen For viscous solutions (i.e. blood components, parenteral nutrition, contrast media, or after obtaining blood sample) use: Peripheral IV = 10 mL Midline or CentralLine = 20 mL/lumen, Pre-op (day of surgery) * 2100 (Due) vancomycin 1000 mg IVPB in 250 mL NS addavial (COMPLETED) 1,000 mg, IntraVENous, at 250 mL/hr, Administer over 60 Minutes, ONCE, On Telma 03/05/23 at 1315, For 1 dose, Pre-op (day of surgery) * 1501 (New Bag - Provider: BRENDA Alvares CRNA - Comment: given over 1 hr) Medication Order/ 0.9 % sodium chloride infusion IntraVENous, at 125 mL/hr, CONTINUOUS, Starting on Telma 03/05/23 at 1315, Pre-op (day of surgery) * 1315 (Due) lactated ringers IV soln infusion IntraVENous, at 125 mL/hr, CONTINUOUS, Starting on Telma 03/05/23 at 1315, Pre-op (day of surgery) * 1315 (Due) Medication Order// 0.9 % sodium chloride infusion IntraVENous, at [...] less into rate field of order., Pre-op (dayof surgery) bupivacaine-EPINEPHrine (MARCAINE-w/EPINEPHRINE) 0.5% -1:519878 30 mL, lidocaine 1 % 40 mL (CANCELED) PRN, Starting on Telma 03/05/23 at 1539, Intra-op * 1539 (Given - Provider: Mohit Dejesus MD) fentaNYL (SUBLIMAZE) injection 25 mcg 25 mcg, IntraVENous, EVERY 5 MIN PRN, 4 doses, Starting on Telma 03/05/23 at 1540, Until Discontinued,Pain Moderate (4-6), Phase I - Initial therapy [...] Thu03/06/23 at 0000, Until Thu03/07/23 at 0000, IVstart, Pre-op (day of surgery) ondansetron (ZOFRAN) injection 4 mg 4 mg, IntraVENous, ONCE PRN, 1 dose, Starting on Telma 03/05/23 at 1540, Until Thu03/06/23 at 1540, Nausea, PACU only oxyCODONE (ROXICODONE) immediate release tablet 5 mg 5 mg, Oral, ONCE PRN, 1 dose, Starting on Telma 03/05/23 at 1540, Until 03/06/23 at 1540, Pain Moderate (4-6), Pain Severe [...] For viscous solutions (i.e. blood components, parenteral nutrition,contrast media, or after obtaining blood sample) use: Peripheral IV = 10 mL Midline or Central Line= 20 mL/lumen, Pre-op (day of surgery) Goals [...] BE BASED ON THE PRIMARY CLINICAL RECORDS. [employer] provides no warranty or guarantee of the accuracy or completeness of information in this document.
== END 2025-05-24 11:01 | disposition home or self-care (01) ==
LOC: RAD 11:03
PROVIDERS: Visit Provider Nurse Practitioner Family
DX: M79.89 Other specified soft tissue disorders (principal); Z86.718 Personal history of other venous thrombosis and embolism
CPT/HCPCS: 93971

== ENCOUNTER 2025-06-06 09:00 | Outpatient (OUT) | payer MEDICARE, MEDICAID, SELFPAY ==
--- OUTSIDE RECORDS SUMMARY | 2024-10-18 05:30 | XMS_ITS ---
Author Organization The [facility] in [place] Address [address] [place] [address] Care Team Providers Care Cardiac Cath Technician Name Role Phone Bertin Moreno Primary Care Provider Unavailab Roscoe Garay Unavailable [phone] REASON FOR VISIT 6 Mos f/u Asthma Medications Medication SIG (Take, Route, Frequency, Duration) Notes Start Date End Date Status Pain pump compound Hydromorp raymond 4mg/mL, Clonidine 40mcg/mL, and Bupivacaine 10mg/mL as directed as directed as directed dilaudid 2/bupivicaine 2 ActivePrazosin HCl 1 MGtake 1 capsule by mouth at bedtime Oral; Duration: 90 DaysActivetraZODone HCl 150 MGOral; Duration: 30 DaysActiveTrelegy Ellipta 200-62.5-25 MCG/ACT1 puff Inhalation Once a day; Duration: 30 daysRinse after useActiveVraylar 1.5 MG1 capsule Orally Once a day; Duration: 30 day(s)Active Furosemide 40 MG1 tablet Orally BIDPRN swellingActiveMethotrexate Sodium 2.5 MG Oral; Duration: 28 DaysActiveMetoprolol Succinate ER 50 MG1 tablet Orally Once a day; Duration: 30 day(s)ActivelamoTRIgine 100 MGtake 1 tablet by mouth IN THE MORNING Oral; Duration: 90 DaysActiveLisinopril 20 MGtake 1 tablet by mouth once daily Oral; Duration: 90 DaysActiveAlbuterol Sulfate HFA 108 (90 Base) MCG/ACT2 puffs as needed for SOB Inhalation every 4 hrs; Duration: 30 daysActive Atorvastatin Calcium 10 MGOral; Duration: 30 DaysActiveFolic Acid 1 MGtake 1 tablet by mouth every morning Oral; Duration: 30 DaysActiveCymbalta 20 MG1 capsule Orally Twice a dayActiveFarxiga 5 MG1 tablet Orally Once a dayActive Encounters Encounter Location Date Provider Diagnosis [facility] [address] [place] [address] 10/18/2024 Roscoe Phan Moderate persistent asthma, uncomplicated J45.40 ; Cigarette nicotine dependence with nicotine-induced disorder F17.219 ; CESARIO (obstructive sleep apnea) G47.33 ; DVT, lower extremity, distal, acute I82.4Z9 ; Other secondary pulmonary hypertension I27.29 ; Alpha 1-antitrypsin PiMS phenotype Z14.8 ; Marijuana abuse F12.10 ; Encounter for screening for malignant neoplasm of respiratory organs Z12.2 ; FDC (current) use of inhaled steroids Z79.51 ; Morbid (severe) obesity due to excess calories E66.01 and Body mass index [BMI] 50.0-59.9, adult Z68.43 Assessments Encounter Date Diagnosis (ICD Code) Assessment Notes Treatment Notes Treatment Clinical Notes Section Notes 10/18/2024 Moderate persistent asthma, unco mplicated (ICD-10 - J45.40) Prior treatment: Trelegy 200 > 100 Patient voices good response from Trelegy, but remains symptomatic and seems to be worsening. PFTs over the last 7 years show a trend suggesting development of asthma-COPD overlap (decline in DLCO and loss of bronchodilator response). Lab work was ordered last visit to ascertain if she would be a candidate for biologic therapy, but she never got that done. At this point, she needs to suggest stopsmoking. 10/18/2024igarette nicotine dependence with nicotine-induced disorder (ICD-10 - F17.219) Yet again, discussed smoking cessation. She is now smoking 1-1.5 packs a day of cigarettes. She is now developing asthma-COPD overlap based on most recent PFT. She is counseled that there is not muchelse to do at this point other than a stop smoking. She has Chantix at home - she was encouraged touse that. LDCT/08/2023 was scored RADS-1. Next LDCT would be due September 2024. She has a 16-nama-zetm historyof smoking. 04/29/2025OSA (obstructive sleep apnea) (ICD-10 - G47.33) Patient has now established with Dr. Acosta at [facility] for CESARIO/CPAP management - any further issues associated with this are deferred to her expertise. 10/18/2024DVT, lower extremity, distal, acute (ICD-10 - I82.4Z9) Diagnosed via US 09/14/2023 with posterior distal tibial vein DVT. She remains on Eliquis. 10/18/2024Other secondary pulmonary hypertension (ICD-10 - I27.29) Incidental finding - RVSP 38mmHg. 10/18/2024lpha 1-antitrypsin PiMS phenotype (ICD-10 - Z14.8) Patient has normal variant alpha1-antitrypsin phenotype MS. This in itself will not cause or typically contribute to emphysema. If the patient has any children, offer was made to provide testing kitsso they can be tested to assess if they are carriers. 10/18/2024Marijuana abuse (ICD-10 - F12.10) Patient states she has stopped smoking marijuana and is now using edibles. 10/18/2024Encounter for screening for malignant neoplasm of respiratory organs (ICD-10 - Z12.2) Low-dose CT (LDCT) was recommended for lung cancer screening. The patient meets criteria including age 50-77, a smoking history of at least 20 pack-years, is currently smoking or has ceased smoking within the past 15 years, and has no signs or symptoms of lung cancer. Shared decision making performed with the patient. After LDCT has been completed, will review report and/or imaging and provide appropriate recommendations for the patient, including additional follow up if needed. Patient was counseled on smoking cessation/continued tobacco abstinence. LDCT 10/13/2023 - RADS-1. Next LDCT would be due 09/2024. 10/18/2024Long term (current) use of inhaled steroids (ICD-10 - Z79.51) Patient was counseled to rinse & gargle with water after inhaled corticosteroid use. 10/18/2024Morbid (severe) obesity due to excess calories (ICD-10 - E66.01) She has gained weight, BMI now >50. Patient's weight is inducing a restrictive pulmonary physiology. Weight loss indicated: Decrease calories, increase activity. 10/18/2024ody mass index [BMI] 50.0-59.9, adult (ICD-10 - Z68.43) Plan Of Treatment Treatment Notes Assessment Notes Moderate persistent asthma, uncomplicate d Prior treatment: Trelegy 200 > 100 Patient voices good response from Trelegy, but remains symptomatic and seems to be worsening. PFTs over the last 7 years show a trend suggesting development of asthma-COPD overlap (decline in DLCO and loss of bronchodilator response). Lab work was ordered last visit to ascertain if she would be a candidate for biologic therapy, but she never got that done. At this point, she needs to suggest stop smoking. Cigarette nicotine dependenc e with nicotine-induced disorder Yet again, discussed smoking cessation. She is now smoking 1-1.5 packs a day of cigarettes. She is now developing asthma-COPD overlap based on most recent PFT. She is counseled that there is not much else to do at this point other than a stop smoking. She has Chantix at home - she was encouraged to use that. LDCT/08/2023 was scored RADS-1. Next LDCT would be due September 2024. She has a 62-ngdk-biyx history of smoking. CESARIO (obstructive sleep apnea) Patient has now established with Dr. Acosta at [facility] for CESARIO/CPAP management - any further issues associated with this are deferred to her expertise. DVT, lower extremity, distal, acute Diagnosed via US 09/14/2023 with posterior distal tibial vein DVT. She remains on Eliquis. Other secondary pulmonary hypertension Incidental finding - RVSP 38mmHg. Alpha 1-antitrypsin PiMS phenotype Patient has normal variant alpha1-antitrypsin phenotype MS. This in itself will not cause or typically contribute to emphysema. If the patient has any children, offer was made to provide testing kits so they can be tested to assess if they are carriers. Marijuana abuse Patient states she has stopped smoking marijuana and is now using edibles. Encounter for screening for malignant neoplasm of respiratory organs Low-dose CT (LDCT) was recommended for lung cancer screening. The patient meets criteria including age 50-77, a smoking history of at least 20 pack-years, is currently smoking or has ceased smoking within the past 15 years, and has no signs or symptoms of lung cancer. Shared decision making performed with the patient. After LDCT has been completed, will review report and/or imaging and provide appropriate recommendations for the patient, including additional follow up if needed. Patient was counseled on smoking cessation/continued tobacco abstinence. LDCT 10/13/2023 - RADS-1. Next LDCT would be due 09/2024. 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 Morbid (severe) obesity due to excess calories She has gained weight, BMI now >50. Patient's weight is inducing a restrictive pulmonary physiology. Weight loss indicated: Decrease calories, increase activity. Next Appt Details Provider Name:Jessica Roblero J Luis , 08/23/2025 10:30:00 AM, [address], [place], [address], Procedure Notes * CategorySub-CategoryDetailNotesPFTData:03/23/2024-FEV1/FVC: 64%-FEV1: 53%-FVC: 65%-RTA02-96%: 30%-Bronchodilator response: None-RV: 147%-T%-DLCO: 79%-Flow-volume loop: Moderately-severe oucvjwzxnnl07/20/2022-FEV1/FVC: 64%- FEV1: 53%-FVC: 67%-GFU72-92%: 28%-Bronchodilator response: Partial-RV: 147%- T%-DLCO: 101%-Flow-volume loop: Moderately-severe veeijonxbah30/2/2017- FEV1/FVC: 65%-FEV1: 57%-FVC: 71%-TIB38-56%: 31%-Bronchodilator response: None- RV: 80%-T%-DLCO: 94%-Flow-volume loop: Moderate obstruction07/26/2012-FEV1/FVC: 64%-FEV1: 54%-FVC: 70%-GQK47-51%: 32%- Bronchodilator response: Positive-RV: 191%-T%-DLCO: 93%-Flow-volume loop: Moderate obstructionAlpha-1 AntitrypsinScreening Date:04/16/2022 Genotype:MS Progress Notes * Radha FONTENOT LDOB: [birth year] (49 yo F)Acc No.[id number]:10/18/2024 UNLOCKED PROGRESS NOTE Follow Up Patient: Radha LARRY :?ANDI Mckinney:1975???Age:49 Y ???Sex:FemaleDate:10/18/2024Phone:[phone]:[address] [facility], [facility]-[address]Ytg:LOWELL Sweet Subjective: * Chief Complaints: * 1 . 6 Mos f/u Asthma. * ROS: ???General/Constitutional:?Fever or sweats?denies.?Change of appetite?denies.?Chills?denies.?Weight Change?denies.?HEENT:?Dry mouth?denies.?Sore throat?denies.?Oral Ulcers?denies.?Post Nasal Drip?Denies.?Congestion?Denies.?Hoarseness Denies.?Cardiovascular:?Tachycardia?denies.?Chest pain?denies.?Palpitations?denies.?Respiratory:?Chest tightness?admits.?Pleurisy?Denies.?Dyspnea?admits.?Cough?admits .?Hemoptysis?denies.?Wheezing?admits.?Gastrointestinal:?Acid Reflux/GERD/Heartburn?denies.?Dysphagia?denies.?Musculoskeletal:?Chronic Back Pain?admits.?Arthralgias/joint pain?Denies.?Skin:?Easy bruising ?denies.?Rash?denies.?Neurologic:?Seizures?denies.?Tremor?denies.?Hematology:?Abnormal Bleeding?denies.?Psychiatric:?Anxiety?denies.? * Medical History: * Medications: T aking Albuterol Sulfate HFA 108 (90 Base) MCG/ACT Aerosol Solution 2 puffs as needed for SOB Inhalation every 4 hrs , Taking Atorvastatin Calcium 10 MG Tablet Oral , Taking Cymbalta 20 MG Capsule Delayed Release Particles 1 capsule Orally Twice a day , Taking Farxiga(Dapagliflozin Propanediol) 5 MG Tablet 1 tablet Orally Once a day , Taking Folic Acid 1 MG Tablet take 1 tablet by mouth every morning Oral , Taking Furosemide 40 MG Tablet 1 tablet Orally BID , Notes to Pharmacist: PRN swelling, Taking lamoTRIgine 100 MG Tablet take 1 tablet by mouth IN THE MORNING Oral , Taking Lisinopril 20 MG Tablet take 1 tablet by mouth once daily Oral , Taking Methotrexate Sodium 2.5 MG Tablet Oral , Taking Metoprolol Succinate ER 50 MG Tablet Extended Release 24 Hour 1 tablet Orally Once a day , Taking Pain pump compound Hydromorphone 4mg/mL, Clonidine 40mcg/mL, and Bupivacaine 10mg/mL compound as directed as directed as directed , Notes to Pharmacist: dilaudid 2/bupivicaine 2, Taking Prazosin HCl 1 MG Capsule take 1 capsule by mouth at bedtime Oral , Taking traZODone HCl 150 MG Tablet Oral , Taking Trelegy Ellipta(Uwfeapfsvhl-Grlwlydtl-Cbuppm) 200-62.5-25 MCG/ACT Aerosol Powder Breath Activated 1 puff Inhalation Once a day , Notes to Pharmacist: Rinse after use, Taking Vraylar(Cariprazine HCl) 1.5 MG Capsule 1 capsule Orally Once a day Objective: * Vitals: * Examination: ???Exam: ?GENERAL APPEARANCE:?In no acute distress.?Skin?Normal.?Mouth?Vaughn and moist.?Oropharynx?Mallampati Class III.??No candidiasis.?Trachea?Midline.?Chest?Normal.?Respiratory??Normal?Movements,?Effort?Normal.?Auscultation?Diminished breath sounds, coarse with some expiratory wheezes.?Cardiac?Regular rate and rhythm.?Gastrointestinal?Increased central adiposity.?Vascular?No edema.?Musculoskeletal?Normal posture.?Neurological?Focal, intact.?Psychiatric?Alert and oriented x3.?Mentation/Cognition?Normal.? Assessment: * Assessment: 1.?Moderate persistent asthma, uncomplicated - J45.40 (Primary)???2.?Cigarette nicotine dependence with nicotine-induced disorder - F17.219???3.?CESARIO (obstr uctive sleep apnea) - G47.33???4.?DVT, lower extremity, distal, acute - I82.4Z9& #160;??5.?Other secondary pulmonary hypertension - I27.29???6.?Alpha 1- antitrypsin PiMS phenotype - Z14.8???7.?Marijuana abuse - F12.10?&#16 0;?8.?Encounter for screening for malignant neoplasm of respiratory organs - Z12.2? ?9.?FDC (current) use of inhaled steroids - Z79.51???10.?Mor bid (severe) obesity due to excess calories - E66.01???11.?Body mass index [BMI] 50.0-59.9, adult - Z68.43??? Plan: * Treatment: Notes: Prior treatment: Trelegy 200 > 100 Patient voices good response from Trelegy, but remains symptomatic and seems to be worsening. PFTs over the last 7 years show a trend suggesting development of asthma-COPD overlap (decline in DLCO and loss of bronchodilator response). Lab work was ordered last visit to ascertain if she would be a candidate for biologic therapy, but she never got that done. At this point, she needs to suggest stopsmoking.??2.?Cigarette nicotine dependence with nicotine-induced disorder? Notes: Yet again, discussed smoking cessation. She is now smoking 1-1.5 packs a day of cigarettes. She is now developing asthma-COPD overlap based on most recent PFT. She is counseled that there is not muchelse to do at this point other than a stop smoking. She has Chantix at home - she was encouraged touse that. LDCT/20 08/2023 was scored RADS-1. Next LDCT would be due September 2024. She has a 81-xijj-zimp historyof smoking.??3.?CESARIO (obstructive sleep apnea)? Notes: Patient has now established with Dr. Acosta at [facility] for CESARIO/CPAP management - any further issues associated with this are deferred to her expertise.??4.?DVT, lower extremity, distal, acute? Notes: Diagnosed via US 09/14/2023 with posterior distal tibial vein DVT. She remains on Eliquis.? 5.?Other secondary pulmonary hypertension? Notes: Incidental finding - RVSP 38mmHg.??6.?Alpha 1-antitrypsin PiMS phenotype? Notes: Patient has normal variant alpha1-antitrypsin phenotype MS. This in itself will not cause or typically contribute to emphysema. If the patient has any children, offer was made to provide testing kitsso they can be tested to assess if they are carriers. ??7.?Marijuana abuse? Notes: Patient states she has stopped smoking marijuana and is now using edibles.?? 8.?Encounter for screening for malignant neoplasm of respiratory organs? Notes: Low-dose CT (LDCT) was recommended for lung cancer screening. The patient meets criteria including age 50-77, a smoking history of at least 20 pack-years, is currently smoking or has ceased smoking within the past 15 years, and has no signs or symptoms of lung cancer. Shared decision making performed with the patient. After LDCT has been completed, will review report and/or imaging and provide appropriate recommendations for the patient, including additional follow up if needed. Patient was counseled on smoking cessation/continued tobacco abstinence. LDCT 10/13/2023 - RADS-1. Next LDCT would be due 09/2024.??9.?FDC (current) use of inhaled steroids? Notes: Patient was counseled to rinse & gargle with water after inhaled corticosteroid use. ? 10.?Morbid (severe) obesity due to excess calories? Notes: She has gained weight, BMI now >50. Patient's weight is inducing a restrictive pulmonary physiology. Weight loss indicated: Decrease calories, increase activity. ?? * Procedures: ???Alpha-1 Antitrypsin:?Screening Date:?04/16/2022.?Genotype:?MS.?PFT:?Data:?03/23/2024-FEV1/FVC: 64%-FEV1: 53%-FVC: 65%-NBV64-45%: 30%-Bronchodilator response: None-RV: 147%-T%-DLCO: 79%-Flow-volume loop: Moderately-severe obstruction ?04/10/2022-FEV1/FVC: 64%-FEV1: 53%-FVC: 67%-QIT56-82%: 28%- Bronchodilator response: Partial-RV: 147%-T%-DLCO: 101%-Flow-volume loop: Moderately-severe obstruction ?03/23/2017-FEV1/FVC: 65%-FEV1: 57%-FVC: 71%-KSZ24-63%: 31%-Bronchodilator response: None-RV: 80%-T%-DLCO: 94%-Flow-volume loop: Moderate obstructio n ?07/26/2012-FEV1/FVC: 64%-FEV1: 54%-FVC: 70%-JGE55-48%: 32%-Bronchodilator response: Positive-RV: 191%-T%-DLCO: 93%-Flow-volume loop: Moderate obstr uction.? * * Electronic signature of Roscoe Phan DO on 06/06/2025 at 09:04 AM ESTSign off status: PendingVisit Status:?R/S (Rescheduled) * Provider: Ej Phan DO Date: 0 10/18/2024 Generated for Printing/Faxing/eTransmitting on:?06/06/2025 09:04 AM EST History and Physical Notes * Examination CategorySub-CategoryDetailNotesCategory NotesExamGENERAL APPEARANCE:In no acute distressSkinNormalMouthPink and moistTracheaMidlineChestNormalRespiratoryNormal Movements, Effort NormalAuscultationDiminished breath sounds, coarse with some expiratory wheezesCardiacRegular rate and rhythmGastrointestinalIncreased central adiposityVascularNo edemaMusculoskeletalNormal postureNeurologicalFocal, intactPsychiatricAlert and oriented r1Lghasvxmu/CognitionNormalOropharynx Mallampati Class III. No candidiasis
--- OUTSIDE RECORDS SUMMARY | 2024-11-02 08:00 | XMS_ITS ---
Author Organization The [facility] in [place] Address [address] [place] [address] Care Team Providers Care Dietary Aide Teacher Name Role Phone Bertin Moreno Primary Care Provider Unavailab patricia Emilie Roscoe Unavailable [phone] REASON FOR VISIT 6 Mos f/u Asthma Encounters Encounter Location Date Provider Diagnosis Pulmonary Medicine [address] [address] 11/02/2024 Roscoe Phan Plan Of Treatment Next Appt Details Provider Name:Jessica Dietz er, 08/23/2025 10:30:00 AM, [address], [place], [address], Progress Notes * Radha FONTENOT LDOB: [birth year] (49 yo F)Acc No.[id number]:11/02/2024 UNLOCKED PROGRESS NOTE Follow Up Patient: Starla Radha PEGUERO :?Roscoe Phan DODOB:1975???Age:49 Y ???Sex:FemaleDate:11/02/2024Phone:[phone]:[address], [place], [id number]:LOWELL Sweet Subjective: * Chief Complaints: * 1 . 6 Mos f/u Asthma. * Medical History: Objective: * Vitals: Assessment: Plan: * Treatment: * * Electronic signature of Roscoe Phan DO on 06/06/2025 at 09:03 AM ESTSign off status: PendingVisit Status:?CANC (Cancelled) * Provider: Ej Phan, Date: 0 11/02/2024 Generated for Printing/Faxing/eTransmitting on:?06/06/2025 09:03 AM EST
--- OUTSIDE RECORDS SUMMARY | 2025-03-28 11:00 | XMS_ITS ---
Author Organization The [facility] in [place] Address [address] [place] [place] [address] Care Team Providers Care Hide Inspector And Sorter Name Role Phone Bertin Moreno Primary Care Provider Unavailab le Provider, Radiology Unavailable [phone] Encounters Encounter Location Date Provider Diagnosis Radiology [address] [address] 03/28/2025 Radiology Provider Plan Of Treatment Next Appt Details Provider Name:Jessica Dietz er, 08/23/2025 10:30:00 AM, [address], [place], [address], Progress Notes * Radha MENDOZA LDOB: [birth year] (49 yo F)Acc No.[id number]:03/28/2025 UNLOCKED PROGRESS NOTE Progress Note Patient: Radha LARRY :?Radiology ProviderDOB:1975???Age:49 Y ???Sex:FemaleDate:03/28/2025External Visit ID:[id number]:[phone] Address:[address] [place] [address] [address], [facility]Ulq:LOWELL Sweet Subjective: * Chief Complaints: * * Active Problem List J45.40 Moderate persistent asthma, uncomplicated Modified On:02/11/2023W/U Status:pjrikfzjwV54.33OSA (obstructive sleep apnea) Modified On:02/11/2023/U Status:ztoovotozE60.10Marijuana abuse Modified On:02/11/2023 Status:qaoibyzsiO20.219Cigarette nicotine dependence with nicotine-induced disorder Modified On:02/11/2023 Status:opxmsokuiH71.9IDA (iron deficiency anemia) Modified On:10/07/2023 Status:oqjdxzcyzC34.4Z9DVT, lower extremity, distal, acute Modified On:10/07/2023 Status:ixqibbvqbD02.29Other secondary pulmonary hypertension Modified On:10/07/2023 Status:wbmdgwwghS98.8Alpha 1-antitrypsin PiMS phenotype Modified On:02/11/2023 Status:sahnppvabI32.51Long term (current) use of inhaled steroids Modified On:02/11/2023 Status:klxzimycoZ87.4Chronic pain syndrome Modified On:08/19/2023 Status:nlkdooqvjJ56.01Morbid (severe) obesity due to excess calories Modified On:02/11/2023 Status:pdcirypdxZ30.1Postlaminectomy syndrome, not elsewhere classified Modified On:03/16/2023 Status:jryuebabkK73.1Failed back syndrome Modified On:08/19/2023 Status:hszmucrrfG32.43Body mass index [BMI] 50.0-59.9, adult Modified On:10/07/2023 Status:ounrmsyhfM04.9GERD (gastroesophageal reflux disease) Modified On:10/20/2023 Status:nquzprsqrS49.89Other specified chronic obstructive pulmonary disease Modified On:04/06/2024 Status:jmlotrolkW56.200Nicotine dependence, unspecified, uncomplicated Modified On:04/06/2024 Status:confirmed * Medical History: Objective: * Vitals: Assessment: Plan: * Treatment: * * Electronic signature of Radiology Provider on 06/06/2025 at 09:03 AM ESTSign off status: PendingVisit Status:?CANC (Cancelled) * Provider: R adiology Provider Date: Generated for Printing/Faxing/eTransmitting on:?06/06/2025 09:03 AM EST
--- OUTSIDE RECORDS SUMMARY | 2025-04-06 05:00 | XMS_ITS ---
Author Organization The [facility] in [place] Address [address] [place] [address] Care Team Providers Care Fondant Machine Operator Name Role Phone Bertin Moreno Primary Care Provider Unavailab Mohit Arguelles Unavailable [phone] REASON FOR VISIT Catheter Access StudyLocal Encounters Encounter Location Date Provider Diagnosis [facility] [address] [place] [address] 04/06/2025 Mohit Dejesus Plan Of Treatment Next Appt Details Provider Name:Jessicafabio Dietz er, 08/23/2025 10:30:00 AM, [address] [place], [address], Progress Notes * Radha FONTENOT LDOB: [birth year] (49 yo F)Acc No.[id number]:04/06/2025 UNLOCKED PROGRESS NOTE Procedure Patient: Starla PEGUERO Radha Omer :?Mohit Dejesus, MDDOB:1975???Age:49 Y ???Sex:FemaleDate:04/06/2025Phone:[phone]:[address] [place] [address] [address], [place], [id number]:LOWELL Sweet Subjective: * Chief Complaints: * 1 . Catheter Access StudyLocal. * Medical History: Objective: * Vitals: Assessment: Plan: * Treatment: * * Electronic signature of Mohit Dejesus MD, [id number] on 06/06/2025 at 09:03 AM ESTSign off status: PendingVisit Status:?CANC (Cancelled) * Provider: Chang Dejesus MD Date: 1 Generated for Printing/Faxing/eTransmitting on:?06/06/2025 09:03 AM EST
--- OUTSIDE RECORDS SUMMARY | 2025-05-24 10:00 | XMS_ITS | Encounter Summary ---
Author Organization [facility] Address [address] [place] [address] Care Team Providers Care Crutcher Helper Name Role Phone Roscoe Phan MD Unavailable Syl Trotter Primary Care Provider + [phone] Ysabel Gomez CNP Unavailable Reason for Referral * Imaging (Routine) - Pending ReviewSpecialtyDiagnoses / ProceduresReferred By ContactReferred To ContactCardiology Diagnoses Leg swelling Hx of deep venous thrombosis Procedures Vascular US lower extremity venous insufficiency bilateral Natasha Michaud CNP [address] [place] [address] Phone: tel: fax: Referral IDStatusReasonStart DateExpiration DateVisits RequestedVisits [id number] Review Perform Procedure * Imaging (Routine) - Pending ReviewSpecialtyDiagnoses / ProceduresReferred By ContactReferred To ContactCardiology Diagnoses Leg swelling Hx of deep venous thrombosis Procedures Vascular US lower extremity venous duplex left Natasha Michaud CNP [address] [place] [address] Phone: tel: fax: Referral IDStatusReasonStart DateExpiration DateVisits RequestedVisits [id number] Review Perform Procedure 1 Reason for Visit [...] leg Encounter Details DateTypeDepartmentCare Team (Latest Contact Info)Oieuhqmofyc53/03/2025 10:00 AM ESTOffice Visit [facility] [address] [place] [address] Natasha Michaud CNP [address] [place] [phone] Leg swelling (Primary Dx); Hx of deep venous thrombosis; Chronic heart failure with preserved ejection fraction (HFpEF) (CMS/HCC); Mixed hyperlipidemia; Benign hypertensive cardiomyopathy with heart failure (CMS/HCC); GUALLPA (dyspnea on exertion) Social History Tobacco UseTypesPacks/DayYears UsedDateSmoking Tobacco: Every DayCigarettes Passive Smoke Exposure: CurrentSmokeless Tobacco: NeverAlcohol UseStandard Drinks/WeekCommentsNever0 (1 standard drink = 0.6 oz pure alcohol)[facility] Utilities AnswerDate RecordedIn the past 12 months has the electric, gas, oil, or water [employer] threatened to shut off services in your [...] were you homeless or living in a mcc (including now)? No04/13/2025Hunger Vital SignAnswerDate RecordedWithin the past 12 months, you worried that your food would run out before you got the money to buymore.Never true04/13/2025Ran Out of Food in the Last YearNot on file04/13/2025 CommentsUnknownSex and Gender InformationValueDate RecordedSex Assigned at Cnkwxd7903/16/2025 10:58 AM EDTLegal GjfEodyly18/ 9:58 PM EDTGender MtzezzkrYhmlqd47/25/2025 10:58 AM EDTSexual OrientationChoose not to disclose 03/16/2025 10:58 AM EDTdocumented as of this encounter Last Filed Vital Signs Vital SignReadingTime TakenCommentsBlood Wgdjdxup33/6905/24/2025 10:16 AM EST [id number] 10:16 AM ESTTemperature--Respiratory Rate--Oxygen Saturation 96%05/24/2025 10:16 AM ESTInhaled Oxygen Concentration--Wktkgk172 kg (262 lb) 05/24/2025 10:16 AM JCBTmxcsr810.9 cm (5' 1 )05/24/2025 10:16 AM ESTBody Mass Index49. 10:16 AM ESTdocumented in this encounter Patient Instructions * Patient Instructions* Natasha Michaud CNP - 05/24/2025 10:00 AM EST *Take lasix 40mg daily x 1 week *Schedule venous reflux study to assess your leg swelling *Have lipid lab levels done documented in this encounter Progress Notes * Natasha Michaud CNP - 05/24/2025 10:00 AM EST Images from the original note were not included. Cardiovascular Medicine [facility] SUBJECTIVE Chief Complaint Patient presents with Follow-up Patient is here today for a 1 year follow up. Patient complains of chest pain off and on for the last month, no other symptoms associated resolves on its own. Patient complains of SOB/GUALLPA, palpitations/racing heart, fatigue., dizziness/lightheaded, leg swelling Cardiomyopathy Benign Hypertensive Congestive Heart Failure Pulmonary Hypertension Chest Pain Shortness of Breath SOB/GUALLPA due to COPD Hypertension Dizziness Dizziness/lightheaded with bending over and position changes Palpitations Palpitations/racing heart with and without Fatigue Increased Edema Bilateral wore in left leg Radha Mendoza is a 49 y.o. female here for follow-up. PMHx: HFpEF, HTN, HLD, angiographically normal coronary arteries, morbid obesity HPI 05/24/2025 She has been having intermittent chest pain. Feels like a pressure, occurs under her left breast, lasts seconds then resolves. Occurs when she feels more stressed/anxious since her mom has passed. She has GUALLPA - this is stable, she attributes this to her COPD. She c/o worsening left leg in the past 3-4 months - accompanied redness. She notes hx of DVT in herright leg for which she was on Eliquis for 1 year. She is taking lasix twice a week. Hasn't made much of a difference in leg swelling. Problem List[1] Medical History[2] Family History[3] Social History[4] Allergies[5] OBJECTIVE Visit Vitals BP 97/69 (BP Location: Left arm, Patient Position: Sitting) Pulse 68 Ht 1.549 m (5' 1 ) Wt 119 kg (262 lb) SpO2 96% BMI 49.50 kg/m?? Smoking Status Every Day BSA 2.26 m?? Medications: Current Medications[6] Physical Exam Vitals reviewed. Constitutional: Appearance: Normal appearance. She is obese. HENT: Head: Normocephalic and atraumatic. Right Ear: External ear normal. Left Ear: External ear normal. Eyes: Extraocular Movements: Extraocular movements intact. Conjunctiva/sclera: Conjunctivae normal. Pupils: Pupils are equal, round, and reactive to light. Neck: Vascular: No carotid bruit. Cardiovascular: Rate and Rhythm: Normal rate and regular rhythm. Pulses: Normal pulses. Heart sounds: Normal heart sounds. Pulmonary: Effort: Pulmonary effort is normal. Breath sounds: Wheezing present. Abdominal: General: Bowel sounds are normal. Palpations: Abdomen is soft. Musculoskeletal: Cervical back: Neck supple. Right lower leg: Edema (trace) present. Left lower leg: Edema (+2 RLE edema with accompanied redness) present. Skin: General: Skin is warm and dry. Neurological: General: No focal deficit present. Mental Status: She is alert and oriented to person, place, and time. Psychiatric: Mood and Affect: Mood normal. Behavior: Behavior normal. Thought Content: Thought content normal. Judgment: Judgment normal. Labs: No results found for: EXTCMP , BMPR1A , CBCDIF , BNP , LASAP , RED Follow-Up on 03/16/2025 Component Date Value Sodium 03/16/2025 139 Potassium 03/16/2025 4.5 Chloride 03/16/2025 101 CO2 03/16/2025 31 Anion Gap 03/16/2025 12 BUN 03/16/2025 14 Creatinine 03/16/2025 0.76 BUN/Creatinine Ratio 03/16/2025 18.4 Glucose 03/16/2025 77 Calcium 03/16/2025 9.3 AST 03/16/2025 16 ALT (SGPT) 03/16/2025 14 Alkaline Phosphatase 03/16/2025 68 Total Protein 03/16/2025 7.1 Albumin 03/16/2025 4.2 Total Bilirubin 03/16/2025 0.4 eGFR 03/16/2025 94.8 Auto WBC 03/16/2025 7.10 RBC 03/16/2025 4.90 Hemoglobin 03/16/2025 14.7 Hematocrit 03/16/2025 45.8 (H) MCV 03/16/2025 93.5 MCH 03/16/2025 30.0 MCHC 03/16/2025 32.1 RDW 03/16/2025 16.1 (H) Neutrophils % 03/16/2025 59.2 Lymphocytes % 03/16/2025 29.0 Monocytes % 03/16/2025 8.6 Eosinophils % 03/16/2025 2.4 Basophils % 03/16/2025 0.7 Neutrophils Absolute 03/16/2025 4.20 Lymphocytes Absolute 03/16/2025 2.06 Monocytes Absolute 03/16/2025 0.61 Eosinophils Absolute 03/16/2025 0.17 Basophils Absolute 03/16/2025 0.05 Platelets 03/16/2025 221 nRBC % 03/16/2025 0.0 Immature Granulocytes % 03/16/2025 0.1 Immature Granulocytes Ab* 03/16/2025 0.01 Follow-Up on 01/12/2025 Component Date Value Sodium 01/12/2025 141 Potassium 01/12/2025 4.5 Chloride 01/12/2025 104 CO2 01/12/2025 31 Anion Gap 01/12/2025 11 BUN 01/12/2025 11 Creatinine 01/12/2025 0.80 BUN/Creatinine Ratio 01/12/2025 13.8 Glucose 01/12/2025 89 Calcium 01/12/2025 9.1 AST 01/12/2025 17 ALT (SGPT) 01/12/2025 18 Alkaline Phosphatase 01/12/2025 66 Total Protein 01/12/2025 7.3 Albumin 01/12/2025 4.4 Total Bilirubin 01/12/2025 0.6 eGFR 01/12/2025 89.2 CRP 01/12/2025 12.0 (H) Sed Rate 01/12/2025 11 QUANTIFERON TB GOLD PLUS 01/12/2025 Negative MITOGEN MINUS NIL 01/12/2025 9.96 TB1 MINUS NIL 01/12/2025 0.04 TB2 MINUS NIL 01/12/2025 0.03 NIL DIASORIN 01/12/2025 0.04 Hepatitis B Surface Ag 01/12/2025 Nonreactive Hep B Core Total Ab 01/12/2025 Nonreactive Auto WBC 01/12/2025 6.40 RBC 01/12/2025 5.13 (H) Hemoglobin 01/12/2025 14.9 Hematocrit 01/12/2025 46.4 (H) MCV 01/12/2025 90.4 MCH 01/12/2025 29.0 MCHC 01/12/2025 32.1 RDW 01/12/2025 17.3 (H) Neutrophils % 01/12/2025 64.2 Lymphocytes % 01/12/2025 27.5 Monocytes % 01/12/2025 5.3 Eosinophils % 01/12/2025 2.0 Basophils % 01/12/2025 0.8 Neutrophils Absolute 01/12/2025 4.11 Lymphocytes Absolute 01/12/2025 1.76 Monocytes Absolute 01/12/2025 0.34 Eosinophils Absolute 01/12/2025 0.13 Basophils Absolute 01/12/2025 0.05 Platelets 01/12/2025 213 nRBC % 01/12/2025 0.0 Immature Granulocytes % 01/12/2025 0.2 Immature Granulocytes Ab* 01/12/2025 0.01 07/27/23 CBC normal, Renal and liver function normal, Lipid levels fairly well controlled with LDL 101 Component Ref Range & Units 4 wk ago 10 mo ago 1 yr ago Auto WBC 4.00 - 10.60 10*3/uL 8.40 8.38 6.25 RBC 3.80 - 5.00 10*6/uL 4.73 4.88 4.88 Hemoglobin 12.0 - 15.0 g/dL 13.6 14.2 14.2 Hematocrit 36.0 - 48.0 % 41.5 Platelets 150 - 400 10*3/uL 240 246 244 0 Result Notes Component Ref Range & Units 4 wk ago 10 mo ago 1 yr ago Sodium 136 - 145 mmol/L 138 141 R Potassium 3.5 - 5.1 mmol/L 3.9 4.1 R Chloride 98 - 107 mmol/L 105 108 High R CO2 21 - 31 mmol/L 26 27 R Anion Gap 7 - 20 mmol/L 11 BUN 7 - 25 mg/dL 14 12 Creatinine 0.60 - 1.20 mg/dL 0.79 0.73 BUN/Creatinine Ratio 17.7 Glucose 70 - 100 mg/dL 96 85 Calcium 8.6 - 10.3 mg/dL 9.0 9.1 AST 13 - 39 U/L 14 14 ALT (SGPT) 7 - 52 U/L 13 15 Alkaline Phosphatase 34 - 104 U/L 80 78 Total Protein 6.0 - 8.3 g/dL 6.9 7.3 Albumin 3.5 - 5.7 g/dL 4.3 4.3 Total Bilirubin 0.3 - 1.0 mg/dL 0.4 0.5 eGFR >60.0 mL/min/1.73m*2 91.1 02/06/22 Component Ref Range & Units 1 yr ago Hemoglobin A1C 4.0 - 6.0 % 5.5 Estimated Average Glucose mmol/L 111 07/2021 Component Ref Range & Units 2 yr ago Cholesterol 150 - 200 mg/dL 188 Triglycerides 27 - 150 mg/dL 210 High HDL Cholesterol >39 mg/dL 45 Comment: HDL <40 mg/dL - High Risk HDL > or = 40mg/dL- Desirable HDL >60 mg/dL - Negative Risk VLDL 0 - 30 mg/dL 42 High LDL (calc) <130 mg/dL 101 Comment: LDL <100 mg/dL - Desirable LDL >160 mg/dL - High Risk Cholesterol:HDL Ratio 1.0 - 5.0 Testing/Procedures: 09/07/23 TTE LVSF normal- EF 55% RV mildly dilated with normal Systolic function RA atrium dilated Normal diastolic function RVSP 38 mmhg EKG- Sinus rhythm- normal ECG 12/16/2021 Cardiac CTA Indication: Chest pain angina equivalent. Intermediate coronary artery risk.. Procedure: High-resolution Computed Tomographic imaging of the chest was performed with particular attention paid to the coronary arteries. Images from the examination were analyzed for the presence and extent of coronary artery calcification, using coronary calcium quantification software. Following the intravenous injection of 100 cc of Omnipaque 350, a gated CTA of the coronary arteries was obtained. In addition, 3-D reformatted images were constructed under concurrent physician supervision on an independent workstation for evaluation of the coronary arteries. Computer software was used for left ventricular analysis, and computation of the ejection fraction and analysis of the LVwall motion. Nonenhanced chest CT findings: No coronary artery calcification, giving a total Agatston score of 0. Visualized portions of the lungs and mediastinum reveal no abnormality.. Enhanced CTA of the coronary arteries: The ascending aorta measures 25 mm. It has a normal aortic valve appearance. Coronary artery evaluation: Codominant between right and left coronary circulation. No evidence of variant coronary artery anatomy. Left Main: No significant stenosis.. LAD: Mild soft plaque without significant stenosis. There is no significant midsection or distal stenosis. Diagonal 1 is patent. Diagnosed 2 is grossly patent. Circumflex: Patent. Multiple marginal branches of demonstrating no significant stenosis. Right coronary: No significant proximal stenosis. Mid section demonstrates no significant stenosis. No significant stenosis of the visualized posterior descending artery. The conus branch appears patent. Impressions: 1. 0 calcification in the coronary vessels giving an Agatston score of 0 2. There is possibly some soft plaque in a patchy distribution noted in the LAD without significantstenosis. No significant stenosis in the RCA or in the circumflex vessels. 11/2021 Event monitor Narrative INDICATION: Syncope, chest pain FINDINGS: The event monitor prescribed for 30 days, from 11/04/2021 to 12/03/2021. Over that time there were no significant dysrhythmias recorded. All available events show sinus rhythm. There were no PACs or PVCs recorded. There is no atrial fibrillation detected. There were no significant pauses. A single patient triggered event for shortness of breath and heart racing showed normal sinus rhythm. Negative event monitor for significant cardiac arrhythmia over this time ECHO 07/2021 Left Ventricle: Systolic function is normal with an ejection fraction of 60-65%. Mild mitral regurgitation Left Ventricle Left ventricle appears upper limits normal in size. There is mild to moderate concentric increased wall thickness/hypertrophy. Systolic function is normal with an ejection fraction of 60-65%. No obvious regional wall motion abnormalities. Diastolic function assessment is indeterminate. Right Ventricle Right ventricular size appears normal. Systolic function is normal. Left Atrium Left atrium is normal in size. The left atrial volume index is 27.8 mL/m2. Right Atrium Right atrium is mildly dilated. The right atrial area is 19.2 cm2. IVC/SVC The right atrial pressure is estimated at 3 mmHg. IVC appears normal. There is normal collapse withdeep inspiration. Mitral Valve Mitral valve structure is normal. The leaflets are mildly thickened. There is mild regurgitation with a centrally directed jet. There is no evidence of mitral valve stenosis. Tricuspid Valve The tricuspid valve was not well visualized. There is mild regurgitation. There is no evidence of tricuspid valve stenosis. The right ventricular systolic pressure normal. RVSP calculated at 24 mmHg.RVSP is based on RA pressure of 3 mmHg. Aortic Valve Probable trileaflet aortic valve. There is trace to mild regurgitation with centrally directed jet.There is no evidence of aortic valve stenosis. Pulmonic Valve The pulmonic valve was not well visualized. There is trace regurgitation. There is no evidence of pulmonic valve stenosis. Ascending Aorta The aortic root is normal in size. Pericardium There is no pericardial effusion. Study Details A complete echo was performed using complete 2D, color flow Doppler and spectral Doppler. Overall the study quality was adequate. Wall Scoring Baseline Score Index: 1.00 The left ventricular wall motion is normal. ASSESSMENT/PLAN: Diagnoses and all orders for this visit: Leg swelling - Vascular US lower extremity venous duplex left; Future - furosemide (Lasix) 40 mg tablet; Take 1 tablet (40 mg) by mouth if needed (as needed for increased leg swelling, weight gain, increased shortness of breath). - Vascular US lower extremity venous insufficiency bilateral; Future Hx of deep venous thrombosis - Vascular US lower extremity venous duplex left; Future - Vascular US lower extremity venous insufficiency bilateral; Future Chronic heart failure with preserved ejection fraction (HFpEF) ([facility]) - furosemide (Lasix) 40 mg tablet; Take 1 tablet (40 mg) by mouth if needed (as needed for increased leg swelling, weight gain, increased shortness of breath). Mixed hyperlipidemia Benign hypertensive cardiomyopathy with heart failure ([facility]/HCC) GUALLPA (dyspnea on exertion) LLE swelling Hx DVT -With accompanied redness -She has hx of DVT in her RLE, she was on Eliquis for 1 year and was stopped -Will order STAT LLE venous duplex which will be done today to rule out DVT -Will also order for a venous reflux study to assess for venous insufficiency -She is currently taking lasix PRN. Will have her take daily x1 week to see if this helps. HFpEF, chronic -NYHA III -She note GUALLPA is stable -Noted to have worsened LLE swelling - increasing lasix for 1 week -GDMT: continue Farxiga 10mg daily along with lasix. She has stopped aldactone r/t peeing so often -Monitor daily weights, I&O, fluid restriction 1.5-2L/day, renal function and electrolytes HTN -Controlled -Continue Toprol, lisinopril COPD CESARIO GUALLPA -Stable, continue follow-up with pulmonary Dyslipidemia Continue statin Follow up in about 3 months (around 08/22/2025). Natasha Michaud, SARA UTP Cardiovascular Medicine [1] Patient Active Problem List Diagnosis Arthritis of right knee Knee pain Acquired spondylolisthesis Bipolar II disorder ([facility]) Morbid obesity with BMI of 50.0-59.9, adult ([facility]) Chest pain Chronic obstructive lung disease ([facility]) Acute pain Depressive disorder Chronic pain syndrome Dyslipidemia Benign hypertensive cardiomyopathy with heart failure ([facility]) Failed back syndrome Low back pain Inflammation of sacroiliac joint Lumbar post-laminectomy syndrome Major depressive disorder, recurrent episode, moderate ([facility]) Generalized anxiety disorder Panic disorder Syncope Tobacco abuse Status post total knee replacement using cement, right Bilateral carpal tunnel syndrome Methotrexate, intermediate, current use Seronegative rheumatoid arthritis ([facility]/HCC) Osteoarthritis of both knees Osteoarthritis of both hands Tobacco dependence Chronic diastolic congestive heart failure ([facility]) N&V (nausea and vomiting) CESARIO (obstructive sleep apnea) Radiculopathy, lumbar region GUALLPA (dyspnea on exertion) Dysmenorrhea Menorrhagia with irregular cycle Neuropathy Postoperative visit S/P endometrial ablation Congestive heart failure (CMS/HCC) Chronic obstructive pulmonary disease ([facility]/HCC) Alpha 1-antitrypsin PiMS phenotype Cannabis abuse Complication of surgical procedure Deep venous thrombosis of peroneal vein (CMS/HCC) Gastroesophageal reflux disease Iron deficiency anemia [facility] current use of inhaled steroid Moderate persistent asthma without complication Morbid obesity ([facility]/HCC) Other secondary pulmonary hypertension ([facility]/HCC) Unilateral primary osteoarthritis, left knee DVT (deep venous thrombosis) ([facility]) [2] Past Medical History: Diagnosis Date Back pain Bipolar disorder ([facility]/HCC) CHF (congestive heart failure), NYHA class I ([facility]/HCC) Chronic mental illness COPD (chronic obstructive pulmonary disease) ([facility]/HCC) Deep vein thrombosis ([facility]) Depression Diabetes mellitus ([facility]/HCC) Dyslipidemia Dyspepsia Epigastric pain GERD (gastroesophageal reflux disease) Heart attack ([facility]) Hyperlipidemia Hypertension Neuropathy Obesity Osteoarthritis PTSD (post-traumatic stress disorder) Vomiting [3] Family History Problem Relation Name Age of Onset Coronary artery disease Mother No Known Problems Father [4] Social History Tobacco Use Smoking status: Every Day Current packs/day: 2.00 Types: Cigarettes Passive exposure: Current Smokeless tobacco: Never Vaping Use Vaping status: Never Used Substance Use Topics Alcohol use: Never Drug use: Yes Types: Marijuana Comment: 1 joint at bedtime [5] Allergies Allergen Reactions Oxytocin Anaphylaxis and Other Adhesive Tape-Silicones Hives Doxycycline Dulaglutide Other reaction(s): Nausea And Vomiting, vomiting Imitrex [Sumatriptan] Morphine Nsaids (Non-Steroidal Anti-Inflammatory Drug) Other kidneys shut down [6] Current Outpatient Medications: albuterol 90 mcg/actuation inhaler, INHALE 2 PUFFS BY MOUTH EVERY 4 HOURS IF NEEDED FOR SHORTNESS OF BREATH, Disp: , Rfl: atorvastatin (Lipitor) 10 mg tablet, Take 1 tablet (10 mg) by mouth in the morning., Disp: 90 tablet, Rfl: 3 cariprazine (Vraylar) 4.5 mg capsule, Take 4.5 mg by mouth in the morning., Disp: , Rfl: dapagliflozin propanediol (Farxiga) 10 mg, Take 1 tablet (10 mg) by mouth in the morning., Disp: 90tablet, Rfl: 3 etanercept (EnbreL SureClick) 50 mg/mL (1 mL) pen injector, Inject 50 mg under the skin every 7 (seven) days., Disp: 4 mL, Rfl: 11 folic acid (Folvite) 1 mg tablet, Take 1 tablet (1 mg) by mouth in the morning., Disp: 90 tablet, Rfl: 3 HYDROmorphone (Dilaudid) 2 mg tablet, Pain pump, Disp: , Rfl: hydrOXYzine HCL (Atarax) 50 mg tablet, Take 50 mg by mouth if needed., Disp: , Rfl: lamoTRIgine (LaMICtal) 100 mg tablet, Take 1 tablet by mouth in the morning., Disp: , Rfl: lisdexamfetamine (Vyvanse) 30 mg capsule, Take 30 mg by mouth in the morning., Disp: , Rfl: lisinopril 20 mg tablet, Take 20 mg by mouth in the morning., Disp: , Rfl: metFORMIN XR (Glucophage-XR) 750 mg 24 hr tablet, Take 750 mg by mouth daily with evening meal., Disp: , Rfl: methotrexate 2.5 mg tablet, Take 10 tab PO weekly, Disp: 40 tablet, Rfl: 6 metoprolol succinate XL (Toprol-XL) 25 mg 24 hr tablet, Take 25 mg by mouth in the morning. Do not crush or chew., Disp: , Rfl: multivitamin tablet, Take 1 tablet by mouth in the morning., Disp: , Rfl: pantoprazole (ProtoNix) 40 mg EC tablet, Take 40 mg by mouth before breakfast., Disp: , Rfl: pilocarpine (Salagen) 5 mg tablet, Take 2 tabs PO three times a day, Disp: 180 tablet, Rfl: 11 prazosin (Minipress) 1 mg capsule, Take 1 mg by mouth at bedtime., Disp: , Rfl: traZODone (Desyrel) 150 mg tablet, take 1 tablet by mouth at bedtime if needed, Disp: , Rfl: Trelegy Ellipta 200-62.5-25 mcg blister with device, INHALE 1 PUFF BY MOUTH ONCE DAILY, Disp: , Rfl: furosemide (Lasix) 40 mg tablet, Take 1 tablet (40 mg) by mouth if needed (as needed for increased leg swelling, weight gain, increased shortness of breath)., Disp: 90 tablet, Rfl: 3 naloxone (Narcan) 4 mg/0.1 mL nasal spray, Administer 1 spray (4 mg) into affected nostril(s) if needed for opioid reversal. May repeat every 2-3 minutes if needed, alternating nostrils, until medical assistance becomes available. (Patient not taking: Reported on 05/24/2025), Disp: 2 each, Rfl: 0 documented in this encounter Plan of Treatment DateTypeDepartmentCare Team (Latest Contact Info)Tqlwslmmxat21/18/2025 11:15 AM ESTFollow-Up [facility] Rhe[facility] [address] [place] [address] Medina Montes MD [address] [place] [address] NameTypePriorityAssociated DiagnosesOrder ScheduleVascular US lower [...] preserved ejection fraction (HFpEF) (CMS/HCC) Mixed hyperlipidemia Benign hypertensive cardiomyopathy with heart failure (CMS/HCC) GUALLPA (dyspnea on exertion) Other dyspnea and respiratory abnormality documented in this encounter Care Teams Team MemberRelationshipSpecialtyStart DateEnd Date Syl Trotter [address] PCP - Iagxbyz99/12/24 Roscoe Phan MD [address] [place] [address] Referring PhysicianPulmonary Disease09/29/23 Ysabel Gomez CNP [address] [facility] [place] [id number] Nurse PractitionerGastroenterology09/08/24documented as of this encounter
--- OUTSIDE RECORDS SUMMARY | 2025-05-24 20:00 | XMS_ITS | Encounter Summary ---
Author Organization [facility] [employer] [facility] tem Address [id number] [address] [place] [address] Care Team Providers Care Steamer Gum Candy Name Role Phone Wally Ghosh MD Primary Care Provider + Reason for Visit * Misc (Routine) - ClosedSpecialtyDiagnoses / ProceduresReferred By Contact Referred To Contact Diagnoses CESARIO (obstructive sleep apnea) Congestive heart failure, unspecified HF chronicity, unspecified heart failure type ([facility] [place]) Procedures PSG Diagnostic PSG Diagnostic Denisha Mensah MD [address] [place] [address] Phone: tel: fax: Referral IDStatusReasonStart DateExpiration DateVisits RequestedVisits [id number] Encounter Details DateTypeDepartmentCare Team (Latest Contact Info)Vkjeuswylvk95/03/2025 8:00 PM ESTClinical Support [facility] [address] [place] [address] Denisha Mensah MD [address] [address] CESARIO (obstructive sleep apnea); Congestive heart failure, unspecified HF chronicity, unspecified heart failure type ([facility]) Social History Tobacco UseTypesPacks/DayYears UsedDateSmoking Tobacco: Every DayCigarettes Smokeless Tobacco: NeverAlcohol UseStandard Drinks/WeekCommentsYes0 (1 standard drink = 0.6 oz pure alcohol)rareChildcareAnswerDate RecordedChildcareUnknown 12/01/2018EmploymentAnswerDate XzstbgqsTfviiqbspaXkirhay90/12/2019Hunger ScreeningAnswerDate RecordedWithin the past 12 months we worried whether our food would run out before we got money to buy more.Never True03/31/2023Within the past 12 months the food we bought just didn't last and we didn't have money to get more.Never True3Purpose - LifeAnswerDate RecordedPurpose and direction in fvuiGhtmfxz67/11/2021CommentsUnknownSex and Gender InformationValueDate RecordedSex Assigned at BirthNot on fileLegal SexFemale 01/25/2015 11:49 AM EDTGender IdentityNot on fileSexual OrientationNot on file documented as of this encounter Last Filed Vital Signs Vital SignReadingTime TakenCommentsBlood Pressure--Pulse--Temperature-- Respiratory Rate--Oxygen Saturation--Inhaled Oxygen Concentration--Cxjbdd074.5 kg (259 lb)05/24/2025 8:06 PM YTISjhszr384.9 cm (5' 1 )05/24/2025 8:06 PM EST Body Mass Index48.9405/24/2025 8:06 PM ESTdocumented in this encounter Plan of Treatment DateTypeDepartmentCare Team (Latest Contact Info)Cfyjkvefnwi46/15/2026 10:00 AM ESTOffice Visit [facility] [address] [place] [address] Aminata Deluca DO [address] [address] 08/29/2025 10:00 AM EDTOffice Visit [facility] [address] [place] [address] Denisha Mensah MD [address] [facility] [place] [address] documented as of this encounter Procedures Procedure NamePriorityDate/TimeAssociated DiagnosisCommentsPOLYSOMNOGRAPHY 4 OR MORE OOXENIABNFKbqmvnp60/03/2025 8:00 PM EST CESARIO (obstructive sleep apnea) Congestive heart failure, unspecified HF chronicity, unspecified heart failure type ([facility]) documented in this encounter Results * PSG Diagnostic (05/24/2025 8:00 PM EST)Specimen (Source)Anatomical Location / LateralityCollection Method / VolumeCollection TimeReceived Time05/24/2025 8:00 PM EST Narrative [facility] - 05/25/2025 10:52 AM EST INTERPRETED Authorizing ProviderResult TypeResult StatusAbbedaxa E Mensah [facility] ORDERABLESFinal ResultPerforming OrganizationAddressCity/State/ZIP CodePhone Number [facility] documented in this encounter Visit Diagnoses Diagnosis CESARIO (obstructive sleep apnea) Obstructive sleep apnea (adult) (pediatric) Congestive heart failure, unspecified HF chronicity, unspecified heart failure type ([facility]) documented in this encounter Care Teams Team MemberRelationshipSpecialtyStart DateEnd Date Wally Ghosh MD [address] [place] [address] PCP - GeneralInternal Medicine08/08/21documented as of this encounter
--- OUTSIDE RECORDS SUMMARY | 2025-05-31 05:30 | XMS_ITS ---
Author Organization [facility] in [place] Address [address] [place] [address] Care Team Providers Care Gambreler Name Role Phone Bertin Moreno Primary Care Provider Unavailab Jessica Doan Unavailable [phone] Allergies Allergen (clinical drug ingredient) Drug/Non Drug Allergy documented on EMR Reaction Allergy Type Onset Date Status sumatriptan Imitrex feels like on fire Drug Allergy ActiveoxytocinPitocinanaphylactic shockDrug AllergyActivedulaglutideTrulicity vomitingDrug AllergyActivedoxycyclineDoxycyclinehivesDrug AllergyActive REASON FOR VISIT Pump Fill-AIS Medications Medication SIG (Take, Route, Frequency, Duration) Notes Start Date End Date Status Metoprolol Succinate ER 50 MG 1 tablet Orally On ce a day; Duration: 30 day(s) ActivePain pump compound Hydromorphone 4mg/mL, Clonidine 40mcg/mL, and Bupivacaine 10mg/mLas directed as directed as directeddilaudid 2/bupivicaine 2 ActivePrazosin HCl 1 MGtake 1 capsule by mouth at bedtime Oral; Duration: 90 DaysActivetraZODone HCl 150 MGOral; Duration: 30 DaysActiveMethotrexate Sodium 2.5 MGOral; Duration: 28 DaysActivelamoTRIgine 100 MGtake 1 tablet by mouth IN THE MORNING Oral; Duration: 90 DaysActiveFarxiga 5 MG1 tablet Orally Once a day ActiveFolic Acid 1 MGtake 1 tablet by mouth every morning Oral; Duration: 30 DaysActiveFurosemide 40 MG1 tablet Orally BIDPRN swellingActiveLisinopril 20 MG take 1 tablet by mouth once daily Oral; Duration: 90 DaysActiveCymbalta 20 MG1 capsule Orally Twice a dayActiveVraylar 1.5 MG1 capsule Orally Once a day; Duration: 30 day(s)ActiveVyvanse 10 MG1 capsule in the morning Orally Once a day ActiveAlbuterol Sulfate HFA 108 (90 Base) MCG/ACT2 puffs as needed for SOB Inhalation every 4 hrs; Duration: 30 daysActiveAtorvastatin Calcium 10 MGOral; Duration: 30 DaysActiveTrelegy Ellipta 200-62.5-25 MCG/ACT1 puff Inhalation Once a day; Duration: 30 daysRinse after useActive Social History Tobacco Use: Social History Observation Description Date Details (start date - stop date) Current Smoker NA - NA Tobacco Use/Smoking Question Answer Notes Patient is a current smoker How often do you smoke cigarettes?every dayHow many cigarettes a day do you smoke?11-20How soon after you wake up do you smoke your first cigarette?within 5 minutesAre you interested in quitting?Ready to quitTobacco use other than smoking: Question Answer Notes Are you an other tobacco user? No Tobacco Control (Standard) Question Answer Notes Tobacco use: Current every day smoker Additional Findings: Tobacco userHeavy cigarette smoker (20-39 cigs/day) Vital Signs Weight 263.4 lbs 05/31/2025 Height 61 in 05/31/2025 Blood pressure systolic 102 mm Hg 05/31/20 25 Blood pressure diastolic 69 mm Hg 025 Heart Rate 90 /min 05/31/2025 BMI 49.76 kg/m2 05/31/2025 Encounters Encounter Location Date Provider Diagnosis [facility] [address] [place] [address] 05/31/2025 Jessica Millan Failed back syndrome M96.1 ; rn long term care (current) use of opiate analgesic Z79.891 ; Encounter for adjustment or management of infusion pump Z45.1 and Chronic pain syndrome G89.4 Assessments Encounter Date Diagnosis (ICD Code) Assessment Notes Treatment Notes Treatment Clinical Notes Section Notes 05/31/2025 Failed back syndrome (ICD-10 - M 96.1) Pain pump refill. Previous lumbar surgery with Dr. Fine-posterior fusion L4-S1. Controlled substance agreement on file 03/13/2025. [place] reviewed. Urine drug screen reviewed 03/13/2025- uses [facility], Dr. Oleg cruz. Urine drug screen today, 05/31/2025. Narcan on hand. Return to clinic for next pump fill. 05/31/2025Long term (current) use of opiate analgesic (ICD-10 - Z79.891) Pain pump refill. Previous lumbar surgery with Dr. Mcmahanposterior fusion L4-S1. Controlled substance agreement on file 03/13/2025. OAR[place] reviewed. Urine drug screen reviewed 03/13/2025- uses [facility], Dr. Oleg cruz. Urine drug screen today, 05/31/2025. Narcan on hand. Return to clinic for next pump fill. 05/31/2025Encounter for adjustment or management of infusion pump (ICD-10 - Z45.1) Pain pump refill. Previous lumbar surgery with Dr. Mcmahanposterior fusion L4-S1. Controlled substance agreement on file 03/13/2025. OAR[place] reviewed. Urine drug screen reviewed 03/13/2025- uses [facility], Dr. Oleg cruz. Urine drug screen today, 05/31/2025. Narcan on hand. Return to clinic for next pump fill. 05/31/2025hronic pain syndrome (ICD-10 - G89.4) Pain pump refill. Previous lumbar surgery with Dr. Mcmahanposterior fusion L4-S1. Controlled substance agreement on file 03/13/2025. OAR[place] reviewed. Urine drug screen reviewed 03/13/2025- uses [facility], Dr. Oleg cruz. Urine drug screen today, 05/31/2025. Narcan on hand. Return to clinic for next pump fill. Plan Of Treatment Pending Test Test Name Order Date PAIN CLINICAL DRUG SURVEY 12 , PAINS (Inculdes Alcohol, Heroin, Fentanyl and Tramadol w confirm) 05/31/2025 Next Appt Details Provider Name:Jessica Dietz er, 08/23/2025 10:30:00 AM, [address], [place], [address], Medications Administered Medication Instructions Date of Administration Dosage Notes Pump refill compound 540 mL Dilaudid 1.5mg/ml Bupivacaine 1.5mg/ml Procedure Notes * CategorySub-CategoryDetailNotesIntrathecal Pump Refill w/Reprogramming Procedural/Operative Team:Paulie FARLEY/Annika Worrell level:See HPI Improvement since pump insertion:-50%Current drug/concentration:-Dilaudid 1.5mg/ml/Bupivacaine 1.5mg/mlCurrent daily dose:-0.5763 mg per day, 0.5763 mg per dayCurrent PTM Dosage Rate:noneNotes:I programmed the pump to reflect refill amount and was verified (verification signature on scanned printout). Old medication was wasted with 2 person verification,, Jessica Millan PRINCIPAL CONSULTING ENGINEER, Jasmyn Garibay CNPExpected volume of drug to be aspirated:9.7mlActual aspirated volume of medication:10mlRefilled volume with:40 mlNew drug concentration:sameAlarm date:09/06/2025Refill date:08/23/2025ERI:55New daily dose:-sameMedication to remain the same for next refill:YesPatient tolerated procedure well:yesPreoperative Diagnosis:See assessment abovePROCEDURE: Informed consent was obtained from the patient. The risks, benefits and alternatives of the procedure were discussed with the patient. The patient was given the opportunity to ask questions regardingthe procedure, its indications, and the associated risks. The risks of the procedure discussed include infection, bleeding, allergic reaction and cardiovascular and AIR BAG BUILDER side effects of the medication(s). Interrogation of the pump was completed. Patient placed in supine position, skin was prepped with chlorhexidine, area draped in sterile fashion, pump port accessed using a 21 x2-gauge needle. Theneedle was passed into the rubber port of the pump. The medication was then aspirated and replaced with the new medication without complication.POSTPROCEDURE INSTRUCTIONS:The patient tolerated procedure well. There were no complications and no blood loss. Patient has been asked to report any redness, swelling, inflammation, or fevers. Printout scanned for record, copyof printout provided to patient/ caregiver. The patient was observed for 15 minutes for any adverse reaction. Progress Notes * Radha FONTENOT LDOB: [birth year] (49 yo F)Acc No.[id number]:05/31/2025 Pump Fill Patient: Radha LARRY :?MELINDA Vasques:1975???Age:49 Y ???Sex:FemaleDate:05/31/2025Phone:[phone]:[address]Pcp:Bertin Martinesjaden Areli In:10:27 AM ESTCheck Out:11:06 AM EST Subjective: * Chief Complaints: * P ump Fill-AIS * HPI: ???Lumbar Spine:?Location?Lower Back Pain:?Yes ?Pain is radiating:?No ?Quality?of pain is described as:?sharp, stabbing, numbness, tightness ?Severity?Current Pain Level:?8 ?Average Pain Level:?6 ?Status:?Unchanged ?Duration?of pain is:?constant ?Onset?of pain was:?chronic, gradual ?Pain has been present since:?years ?Context?in which pain is experienced:?Unknown ?Pain is?Alleviated by:?Heat, Medications, Sitting, Rest Pain pump 50% ?Aggravated by:?Lifting, Twisting, Carrying, Standing, Walking ?Previous Treatment?Prior EMG:?No ?Previous Surgery:?Fusion Dr. Fine ?Previous Injection:?Did not help ?Previous PT:?Did not help ?Previous Chiropractor:?None ? Patient is here for pain pump refill. Patient reports no issues with pump at this time. * ROS: ???General/Constitutional:?Fever?denies.?Headache?denies.?ENT:?Nasal discharge?denies.?Decreased hearing?denies.?Difficulty swallowing?denies.?Ear pain?denies.?Ear problems?denies. Nose/Throat problems?denies.?Sinus pain?denies.?Sore throat?denies. ?Cardiovascular:?Chest pain?denies.?Dyspnea on exertion?denies.&#1 60;Palpitations?denies.?Swelling in hands/feet?denies.?Respiratory:?Cough?denies.?Shortness of breath?denies.?Wheezing?denies.?Gastrointestinal:?Belching?denies.?Abdominal pain?denies.?Constipation?denies.?Decreased appetite?denies.?Diarrhea?denies.?Nausea denies.?Vomiting?denies.?Genitourinary:?Genital symptoms?denies.?Urinary frequency?denies.?Urinary incontinence?denies.?Blood in urine?denies.?Painful urination denies.?Musculoskeletal:?ADL?denies.?Difficulty Walking?denies .?Fatigue?Denies.?Neck problems?denies.?Back problems?admits.?Painful joints? admits.?Weakness?denies.?Skin:?Discoloration?denies.?Itching?denies.?Rash denies.?Skin lesion(s)?denies.?Neurologic:?Dizziness?denies.?Fainting?denies.?Irritabil ity?denies.?Seizures?denies.?Tingling/Numbness?admits, bilateral upper extremities.?Psychiatric:?Depression?denies.?Change in personality?denies. Anxiety?denies.?Endocrine:?Change in weight?denies.?enlarged lymph nodes?denies.?Excessive hair growth?denies.?Polydipsia?denies.?Polyphagia?denies.?Allergy/Immunology:?Food allergies?denies.?Eczema?denies.?Hay fever?denies.? * Active Problem List J45.40 Moderate persistent asthma, uncomplicated Modified On:02/11/2023 Status:ibxejkqtsR23.33OSA (obstructive sleep apnea) Modified On:02/11/2023 Status:nzxacydhyO91.10Marijuana abuse Modified On:02/11/2023 Status:xhyfoalghV05.219Cigarette nicotine dependence with nicotine-induced disorder Modified On:02/11/2023 Status:tggavevbjX46.9IDA (iron deficiency anemia) Modified On:10/07/2023 Status:fvkoapjxnE14.4Z9DVT, lower extremity, distal, acute Modified On:10/07/2023 Status:viyjbvyxsU49.29Other secondary pulmonary hypertension Modified On:10/07/2023 Status:wdqmjlbapA45.8Alpha 1-antitrypsin PiMS phenotype Modified On:02/11/2023 Status:mdllfibfxQ65.51Long term (current) use of inhaled steroids Modified On:02/11/2023 Status:axftuzbqgW57.4Chronic pain syndrome Modified On:08/19/2023 Status:smnauwgoaC31.01Morbid (severe) obesity due to excess calories Modified On:02/11/2023 Status:hzxutuxmnD55.1Postlaminectomy syndrome, not elsewhere classified Modified On:03/16/2023 Status:ikkerdxyqR89.1Failed back syndrome Modified On:08/19/2023 Status:xflstjsteY75.43Body mass index [BMI] 50.0-59.9, adult Modified On:10/07/2023/U Status:cggcbodabK97.9GERD (gastroesophageal reflux disease) Modified On:10/20/2023U Status:mmkbdlkbsL81.89Other specified chronic obstructive pulmonary disease Modified On:04/06/2024U Status:sayusjzugK76.200Nicotine dependence, unspecified, uncomplicated Modified On:04/06/2024U Status:confirmed * Medical History: * Surgical History: b ack surgery x2 SCS insertion and removal Pain pump insertion Right knee meniscus tear x3 Heart Catheter Right total knee 2 C-Sections tonsillectomy and adenoidectomy dilatation and curettage ITP replacement - SynchronMed II; 8637-40 [id number] ITP catheter - other (one piece) 02/2023endometrial ablation 04/2023 * Hospitalization/Major Diagno stic Procedure: D VT-TBH 09/14/2023ellulitis 04/22/2024 * Family History: F ather: alive, depression, diagnosed with Hypertension, Arthritis. M other: alive, depression, breast cancer, uterine cancer, mental illness, melanoma, anemia, diagnosed with Hypertension, Atrial fibrillation, unspecified type, Heart Disease, Diabetes. M aternal Grandmother: emphysema, diagnosed with Hypertension. P aternal Grandfather: diagnosed with Hypertension. P aternal Grandmother: diagnosed with Heart Disease. M aternal Grandfather: diagnosed with Hypertension.? * Social History: ???Tobacco Use:?Tobacco Control (Standard)?Tobacco use:?Current every day smoker ?Additional Findings: Tobacco user?Heavy cigarette smoker (20-39 cigs/day) ?Electronic Cigarette use?Current user?No ?LM: Additional Tobacco Questions?Number of Years Pt Smoked:?30 ?Number of Packs per Day:?1 ?Tobacco use other than smoking?Are you an other tobacco user??No ?Tobacco Use/Smoking?Patient is a?current smoker ?How often do you smoke cigarettes??every day ?How many cigarettes a day do you smoke??11-20 ?How soon after you wake up do you smoke your first cigarette??within 5 minutes ?Are you interested in quitting??Ready to quit * Medications: T akingAlbuterol Sulfate HFA 108 (90 Base) MCG/ACT Aerosol Solution 2 puffs as needed for SOB Inhalation every 4 hrs Atorvastatin Calcium 10 MG Tablet Oral Cymbalta 20 MG Capsule Delayed Release Particles 1 capsule Orally Twice a day Farxiga(Dapagliflozin Propanediol) 5 MG Tablet 1 tablet Orally Once a day Folic Acid 1 MG Tablet take 1 tablet by mouth every morning Oral Furosemide 40 MG Tablet 1 tablet Orally BID , Notes to Pharmacist: PRN swellinglamoTRIgine 100 MG Tablet take 1 tablet by mouth IN THE MORNING Oral Lisinopril 20 MG Tablet take 1 tablet by mouth once daily Oral Methotrexate Sodium 2.5 MG Tablet Oral Metoprolol Succinate ER 50 MG Tablet Extended Release 24 Hour 1 tablet Orally Once a day Pain pump compound Hydromorphone 4mg/mL, Clonidine 40mcg/mL, and Bupivacaine 10mg/mL compound as directed as directed as directed , Notes to Pharmacist: dilaudid 2/bupivicaine 2Prazosin HCl 1 MG Capsule take 1 capsule by mouth at bedtime Oral traZODone HCl 150 MG Tablet Oral Trelegy Ellipta(Fyxnidfpoiv-Qpktisyig-Qqsulv) 200-62.5-25 MCG/ACT Aerosol Powder Breath Activated 1 puff Inhalation Once a day , Notes to Pharmacist: Rinse after useVraylar(Cariprazine HCl) 1.5 MG Capsule 1 capsule Orally Once a day Vyvanse(Lisdexamfetamine Dimesylate) 10 MG Capsule 1 capsule in the morning Orally Once a day Medication List reviewed and reconciled with the patientTaking Albuterol Sulfate HFA 108 (90 Base) MCG/ACT Aerosol Solution 2 puffs as needed for SOB Inhalation every 4 hrs Taking Atorvastatin Calcium 10 MG Tablet Oral Taking Cymbalta 20 MG Capsule Delayed Release Particles 1 capsule Orally Twice a day Taking Farxiga(Dapagliflozin Propanediol) 5 MG Tablet 1 tablet Orally Once a day Taking Folic Acid 1 MG Tablet take 1 tablet by mouth every morning Oral Taking Furosemide 40 MG Tablet 1 tablet Orally BID , Notes to Pharmacist: PRN swellingTaking lamoTRIgine 100 MG Tablet take 1 tablet by mouth IN THE MORNING Oral Taking Lisinopril 20 MG Tablet take 1 tablet by mouth once daily Oral Taking Methotrexate Sodium 2.5 MG Tablet Oral Taking Metoprolol Succinate ER 50 MG Tablet Extended Release 24 Hour 1 tablet Orally Once a day Taking Pain pump compound Hydromorphone 4mg/mL, Clonidine 40mcg/mL, and Bupivacaine 10mg/mL compound as directed as directed as directed , Notes to Pharmacist: dilaudid 2/bupivicaine 2Taking Prazosin HCl 1 MG Capsule take 1 capsule by mouth at bedtime Oral Taking traZODone HCl 150 MG Tablet Oral Taking Trelegy Ellipta(Hvxajcbycec-Llypcrguw-Nqmvrq) 200-62.5-25 MCG/ACT Aerosol Powder Breath Activated 1 puff Inhalation Once a day , Notes to Pharmacist: Rinse after useTaking Vraylar(Cariprazine HCl) 1.5 MG Capsule 1 capsule Orally Once a day Taking Vyvanse(Lisdexamfetamine Dimesylate) 10 MG Capsule 1 capsule in the morning Orally Once a day Medication List reviewed and reconciled with the patient * Allergies: D oxycycline: hives - AllergyImitrex: feels like on fire - Side EffectsPitocin: anaphylactic shock - Side EffectsTrulicity: vomiting - Allergyno[Allergies Verified] Objective: * Vitals: W t:263.4lbs, Ht: 61 in, BP:102/69mm Hg, HR:90/min, BMI:49.76Index, Pain scale:81- 10, Ht-cm: 154.94 cm, Wt-k.48 kg. * Examination: ???General Examinations: ?GENERAL APPEARANCE:?Alert, oriented to time, place, and person,in no acute distress.?HEAD:?normocephalic, atraumatic.?EYES:?No discharge, Normal Conjunctiva/Sclera.?CHEST:?no gross rib deformity, normal shape and expansion. ?VASCULAR:?No apparent edema.?ABDOMEN:?not distended.?MUSCULOSKELETAL:?Normal, no swelling or deformity, able tomove all extremeites with no problems.?SKIN:?normal, no rashes, no apparent suspicious lesions. ?EXTREMITIES:?no clubbing, cyanosis, or edema.?PSYCH:?good eye contact, mood/affect full range, not anxious appearing.?Pain pump incision is clean dry intact. No swelling. No redness. Nontender. Assessment: * Assessment: 1.?Failed back syndrome - M96.1 (Primary)???2.?rn long term care (current) use of opiate analgesic - Z79.891???3.?Encounter for adjustment or management of infusion pump - Z45.1???4.?Chronic pain syndrome - G89.4???Pain pump refill. Previous lumbar surgery with Dr. Fine-posterior fusion L4-S1. Controlled substance agreement on file 03/13/2025. [place]. Urine drug screen reviewed 03/13/2025- uses [facility], microdose, Dr. Dejesus aware. Urine drug screen today, 05/31/2025. Narcan on hand. Return to clinic for next pump fill. Plan: * Treatment: ?LAB: PAIN CLINICAL DRUG SURVEY 12, PAINS (Inculdes Alcohol, Heroin, Fentanyl and Tramadol w confirm)2.?senior care (current) use of opiate analgesic?LAB: PAIN CLINICAL DRUG SURVEY 12, PAINS (Inculdes Alcohol, Heroin, Fentanyl and Tramadol w confirm) * Procedures: ???Intrathecal Pump Refill w/Reprogramming:?Procedural/Operative Team:?Paulie FARLEY/Annika Figueroa MA.?Preoperative Diagnosis:?See assessment above.?Pain level:?See HPI.?Improvement since pump insertion:?-50%.?Current drug/concentration:?-Dilaudid 1.5mg/ml/Bupivacaine1.5mg/ml.?Current daily dose:?-0.5763 mg per day, 0.5763 mg per day. ?Current PTM Dosage Rate:?none.?MATTHIAS:?55.?PROCEDURE:?Informed consent was obtained from the patient.The risks, benefits and alternatives of the procedure were discussed with the patient. The patient was given the opportunity to ask questions regarding the procedure, its indications, and the associated risks. The risks of the procedure discussed include infection, bleeding, allergic reaction and cardiovascular and AIR BAG BUILDER side effects of the medication(s). Interrogation of the pump was completed. Patient placed in supine position, skin was prepped with chlorhexidine, area draped in sterile fashion, pump port accessed using a 21 x2-gauge needle. The needle was passed into the rubber port of the pump. The medication was then aspirated and replaced with the new medication without complication.. ?Expected volume of drug to be aspirated:?9.7ml.?Actual aspirated volume of medication:?10ml.?Refilled volume with:?40 ml.?New drug concentration:?same.?New daily dose:?-same.?Notes:?I programmed the pump to reflect refill amount and was verified (verification signature on scanned printout). Old medication was wasted with 2 person verification,, Jessica Millan PRINCIPAL CONSULTING ENGINEER, Jasmyn Garibay PRINCIPAL CONSULTING ENGINEER.?POSTPROCEDURE INSTRUCTIONS:?The patient tolerated procedure well. There were no complications and no blood loss. Patient has been asked to report any redness,swelling, inflammation, or fevers. Printout scanned for record, copy of printout provided to patient/ caregiver. The patient was observed for 15 minutes for any adverse reaction..?Alarm date:?09/06/2025.?Refill date:?08/23/2025.?Patient tolerated procedure well:?yes.?Medication to remain the same for next refill:?Yes.? * Therapeutic Injections: Pump refill compound : 40 mL (Route: Other/Miscellaneous) given by Jessica Millan CNP on Other (Failed back syndrome, senior care (current) use of opiate analgesic, Encounter for adjustment or management of infusion pump, Chronic pain syndrome) * Procedure Codes: 3 078F DIAST BP < 80 MM [id number] SYST BP LT 130 MM [id number] ANL SP INF MATERIAL HANDLING CREW SUPERVISOR WMDREPRGFIL Pump refill compound * Preventive Medicine: ??Screenings/Counseling:?FALL RISK SCREENING?Fall Risk Assessment:?No falls in the past year * * ign off status: CompletedVisit Status:?CHK (Check Out) true * Provider: Josie Millan CNP Date: 1 08/01/2024 Generated for Printing/Faxing/eTransmitting on:?06/06/2025 09:03 AM EST History and Physical Notes * HPI (History of Present Illness) CategorySub-CategoryDetailNotesCategory NotesLumbar SpineLocationLower Back Pain:: YesPatient is here for pain pump refill. Patient reports no issues with pump at this time.Pain is radiating:: NoQualityof pain is described as:: sharp, stabbing, numbness, tightnessSeverityCurrent Pain Level:: 8Average Pain Level:: 6Status:: UnchangedDurationof pain is:: constantOnsetof pain was:: chronic, gradualPain has been present since::yearsContextin which pain is experienced:: UnknownPain isAlleviated by:: Heat, Medications, Sitting, RestPain pump 50% Aggravated by:: Lifting, Twisting, Carrying, Standing, WalkingPrevious Treatment Prior EMG:: NoPrevious Surgery:: FusionDr. KahnPrevious Injection:: Did not help Previous PT:: Did not helpPrevious Chiropractor:: None Examination CategorySub-CategoryDetailNotesCategory NotesGeneral ExaminationsGENERAL APPEARANCE:Alert, oriented to time, place, and person, in no acute distressPain pump incision is clean dry intact. No swelling. No redness. Nontender.EYES:No discharge,Normal Conjunctiva/ScleraCHEST:no gross rib deformity, normal shape and expansionABDOMEN:not distendedSKIN:normal, no rashes, no apparent suspicious lesionsEXTREMITIES:no clubbing, cyanosis, or edemaMUSCULOSKELETAL:Normal, no swelling or deformity, able to move all extremeites with no problemsPSYCH:good eye contact, mood/affect full range, not anxious appearingHEAD:normocephalic, atraumaticVASCULAR:No apparent edema
--- NOTE | 2025-06-06 09:03 | MM_ITS ---
Patient Name: FIDELINA FONTENOT MR#: [id number] : 1975 Exam Date: 06/06/2025 Ordering Doctor: LYLA PIEDRA RADIOLOG[facility] REPORT PROCEDURE: MM TOMOSYNTHESIS DIAGNOSTIC BI COMPARISON: MM DIAGNOSTIC MAMMO UNILAT RT, 04/20/2024. MM TOMOSYNTHESIS SCREENING BI, 03/23/2024. MG MAMM MARTHA SCRN W CAD DIG, 05/22/2015. INDICATIONS: Abnormal Mammogram Calculator Name NCI Breast Cancer Risk Assessment Tool 5 Year Breast Cancer Risk 3.20% Lifetime Breast Cancer Risk 25.10% Personal Breast Cancer No Personal Ovarian Cancer No Treatments None Family Cancers Mother with breast cancer at age ~40. LOCATION: [facility] BREAST COMPOSITION: There are scattered areas of fibroglandular density. FINDINGS: DIAGNOSTIC CATEGORY 1--NEGATIVE. RIGHT BREAST: No significant suspicious finding. LEFT BREAST: No significant suspicious finding. RECOMMENDATIONS: ROUTINE MAMMOGRAM AND CLINICAL EVALUATION IN 12 MONTHS. Dictated by: Mohit Mcfadden DO on 06/06/2025 at 09:37 Approved by: Mohit Mcfadden DO on 06/06/2025 at 09:41
--- OUTSIDE RECORDS SUMMARY | 2025-06-06 09:03 | XMS_ITS | Encounter Summary ---
Author Organization [facility] Address [address] [place] [address] Care Team Providers Care Cleaner Operator Name Role Phone Roscoe Phan MD Unavailable Syl Trotter Primary Care Provider + [phone] Ysabel Gomez CNP Unavailable Encounter Details DateTypeDepartmentCare Team (Latest Contact Info)Seqreatvuyf13/03/2025Telephone [facility] Heart at [facility] [address] [place] [address] Ilsa Coffey MA Social History Tobacco UseTypesPacks/DayYears UsedDateSmoking Tobacco: Every DayCigarettes Passive Smoke Exposure: CurrentSmokeless Tobacco: NeverAlcohol UseStandard Drinks/WeekCommentsNever0 (1 standard drink = 0.6 oz pure alcohol)[facility] Utilities AnswerDate RecordedIn the past 12 months has the [employer], gas, oil, or water [employer] threatened to shut off services in your [...] were you homeless or living in a alf (including now)? No04/13/2025Hunger Vital SignAnswerDate RecordedWithin the past 12 months, you worried that your food would run out before you got the money to buymore.Never true04/13/2025Ran Out of Food in the Last YearNot on file04/13/2025 CommentsUnknownSex and Gender InformationValueDate RecordedSex Assigned at Tzwdxy9003/16/2025 10:58 AM EDTLegal PkrTwjumq78/29/2022 9:58 PM EDTGender QwednrvqQfyfhu76/25/2025 10:58 AM EDTSexual OrientationChoose not to disclose 03/16/2025 10:58 AM EDTdocumented as of this encounter Miscellaneous Notes * Telephone Encounter - Natasha Michaud CNP - 05/31/2025 10:17 AM EST I suspect she has some venous insuffiencey. Lets see what her reflux study shows before taking lasix every day. She can resume lasix as needed. Recommend elevating legs when able, Thanks documented in this encounter Plan of Treatment DateTypeDepartmentCare Team (Latest Contact Info)Ztfexugtmbh28/18/2025 11:15 AM ESTFollow-Up [facility] [address] [place] [address] Medina Montes MD [address] [place] [address] documented as of this encounter Visit Diagnoses Not on filedocumented in this encounter Care Teams Team MemberRelationshipSpecialtyStart DateEnd Date Syl Trotter [address] PCP - Tbnjuyb17/12/24 Roscoe Phan MD [address] [place] [address] Referring PhysicianPulmonary Disease09/29/23 Ysabel Gomez CNP [address] [facility] [place] [phone] Nurse PractitionerGastroenterology09/08/24documented as of this encounter
--- OUTSIDE RECORDS SUMMARY | 2025-06-06 09:03 | XMS_ITS | Encounter Summary ---
[facility] Organization [facility] Address [id number] [address] [place] [address] Care Team Providers Care Sanforizer Name Role Phone aWlly Ghosh MD Primary Care Provider + Encounter Details DateTypeDepartmentCare Team (Latest Contact Info)Pagfvgzlnlk26/05/2025Orders Only [facility] [address] [facility] [facility] [address] [place] [address] Ref Prov, [place] [address] Social History Tobacco UseTypesPacks/DayYears UsedDateSmoking Tobacco: Every DayCigarettes Smokeless Tobacco: NeverAlcohol UseStandard Drinks/WeekCommentsYes0 (1 standard drink = 0.6 oz pure alcohol)rareChildcareAnswerDate RecordedChildcareUnknown 12/01/2018EmploymentAnswerDate UzgpyolqVhthoojknyTquutzm99/12/2019Hunger ScreeningAnswerDate RecordedWithin the past 12 months we worried whether our food would run out before we got money to buy more.Never True03/31/2023Within the past 12 months the food we bought just didn't last and we didn't have money to get more.Never True3Purpose - LifeAnswerDate RecordedPurpose and direction in ydpbArphxhv70/11/2021CommentsUnknownSex and Gender InformationValueDate RecordedSex Assigned at BirthNot on fileLegal SexFemale 01/25/2015 11:49 AM EDTGender IdentityNot on fileSexual OrientationNot on file documented as of this encounter Plan of Treatment DateTypeDepartmentCare Team (Latest Contact Info)Ixrmmivjldv71/15/2026 10:00 AM ESTOffice Visit [facility] [address] [place] [phone] Aminata Deluca DO [address] [facility] [address] [place], [place] [address] 08/29/2025 10:00 AM EDTOffice Visit [facility] [address] [place] [phone] Denisha Mensah MD [address] [place] [address] documented as of this encounter Procedures Procedure NamePriorityDate/TimeAssociated DiagnosisCommentsPOLYSOMNOGRAPHY 4 OR MORE PARAMETERS WITH PAP AFZGFIHVZAhqvret68/05/2025 10:02 AM ESTPOLYSOMNOGRAPHY 4 OR MORE RVFCGEBMANTzehqkb91/05/2025 10:01 AM ESTdocumented in this encounter Results * Polysomnography 4 or more parameters with PAP titration (05/26/2025 10:02 AM EST) Narrative Authorizing ProviderResult TypeResult StatusNot In System Ref [facility] ORDERABLESFinal ResultPerforming OrganizationAddressty/State/ZIP CodePhone Number MANUALLY TRANSCRIBED RESULTS * [facility] Diagnostic (05/26/2025 10:01 AM EST) Narrative Authorizing ProviderResult TypeResult StatusNot In System Ref [facility] ORDERABLESFinal ResultPerforming OrganizationAddressty/State/ZIP CodePhone Number MANUALLY TRANSCRIBED RESULTS documented in this encounter Visit Diagnoses Not on filedocumented in this encounter Care Teams Team MemberRelationshipSpecialtyStart DateEnd Date Wally Ghosh MD [address] [place] [address] PCP - GeneralInternal Medicine08/08/21documented as of this encounter
--- OUTSIDE RECORDS SUMMARY | 2025-06-06 09:03 | XMS_ITS | Clinical Summary ---
Author Organization [facility] Address [address] [place] [address] Care Team Providers Care Supervisor Finishing Name Role Phone Roscoe Phan MD Unavailable Syl Trotter Primary Care Provider [phone] Ysabel Gomez CNP Unavailable Allergies Active AllergyReactionsCriticalityNoted DateCommentsAdhesive Tape-SiliconesHives 06/09/20143592Lpygqsbzkuw16/09/5162Zhqfiksjjqn73/10/2023 Other reaction(s): Nausea And Vomiting, vomiting Fkdqbjjkdmm55/09/2446Vpxvuaum52/09/2022Nsaids (Non-Steroidal Anti-Inflammatory Drug)Other06/09/2014 kidneys shut down OxytocinAnaphylaxis,ZiyzlBgbt74/19/2014 Medications MedicationSigDispense QuantityRefillsLast FilledStart DateEnd DateStatus metoprolol [...] 1 tablet by mouth at bedtime if tnlyta3408/18/2023ctive atorvastatin (Lipitor) 10 mg tablet Indications:Coronary artery [...] 1 mg tablet Indications:Seronegative rheumatoid arthritis (CMS/HCC),Methotrexate, director long term care, current useTake 1 tablet (1 mg) by [...] 1-antitrypsin PiMS phenotype 03/16/2025annabis abuse03/16/2025omplication of surgical kfeojevqa68/25/2025 Deep venous thrombosis of peroneal vein03/16/2025Gastroesophageal reflux disease 03/16/2025Iron deficiency uljhqs8503/16/2025Long term current use of inhaled aslamcb7203/16/2025Moderate persistent asthma without rhlptspoirag59/25/2025Morbid tjfxmjo3103/16/2025Other secondary pulmonary avaixbbvchto13/25/2025hronic diastolic congestive heart pipffgs36/10/2023 Assessment & Plan (12/10/2023 3:27 PM EDT): [...] Managed by pulmonary and Cpap Radiculopathy, lumbar memzrt50/OE (dyspnea on exertion) 08/25/2023 Assessment & Plan (12/10/2023 12:52 PM EDT): stable Assessment & Plan (08/25/2023 3:44 PM EST): Order echocardiogram to assess cardiac function, RV size and function, Rt sided pressures, and valvular function Osteoarthritis of both knees07/31/2023Osteoarthritis of both hands07/31/2023 Tobacco vmwuropaws95/09/2024 Assessment & Plan (08/25/2023 4:07 PM EST): Recommended smoking cessation, she is starting chantix for smoking cessation as prescribed from DR Phan Bilateral carpal tunnel /07/2024Methotrexate, director long term care, current use 07/29/2023Seronegative rheumatoid powpeqyhd66/07/2024ostoperative visit 05/20/2023S/P endometrial vxhqyhlr52/29/1949Yynxdrexsxqc08/10/2023Menorrhagia with irregular cycle03/31/2023N&V (nausea and vomiting)/10/2023 Status post total knee replacement using cement, right09/21/2022nee pain 04/01/2022hronic pain ogklcnrh80/11/2022Failed back zzivbybg58/11/2022 Inflammation of sacroiliac joint04/01/2022rthritis of right knee02/28/2022 Morbid obesity with BMI of 50.0-59.9, adult10/29/2021 Assessment & Plan (12/10/2023 12:52 PM EDT): Obesity is unchanged. F/U with PCP- recommended weight loss Chest pain10/29/20217131Unanbhsapeen64/10/2022 Assessment & Plan (12/10/2023 12:51 PM EDT): Continue statin Assessment & Plan (08/25/2023 3:45 PM EST): Continue lipitor 10 mg daily Khnzyrb9310/29/2021Tobacco abuse10/29/20218623Suhmodiswg89/24/2018Congestive heart gyguqfh8211/12/2017Bipolar II qaglqbbg74/21/2017Panic jahjuxzf78/21/2017Major depressive disorder, recurrent episode, hlpbuniy22/16/2017Acute pain12/14/2013 Lumbar post-laminectomy dtsruiny88/10/2014cquired xsclrwriwgtewbdwr69/18/2013 Chronic obstructive lung udmrwbr2309/06/2012 Assessment & Plan (12/10/2023 12:51 PM EDT): COPD is unchanged. F/U with Pulmonary- Dr Phan as scheduled Depressive xonhnlvc12/18/2013enign hypertensive cardiomyopathy with heart kdlcwtz2109/06/2012 Assessment & Plan (12/10/2023 3:27 PM EDT): HTN well controlled Continue lisinopril, toprol, Assessment & Plan (08/25/2023 4:06 PM EST): Hypertension is well controlled Continue lisinopril, toprol, aldactone Low back pain09/06/2012Generalized anxiety /18/2013Chronic obstructive pulmonary qfjfzqa3309/06/2012 Encounters DateTypeDepartmentCare ZjqnNpwrkuhxzah28/03/2025 10:00 AM ESTOffice Visit [facility] at [facility] [address] [place] [address] Natasha Michaud CNP Leg swelling (Primary Dx); Hx of deep venous thrombosis; Chronic heart failure with preserved ejection fraction (HFpEF) (CMS/HCC); Mixed hyperlipidemia; Benign hypertensive cardiomyopathy with heart failure (CMS/HCC); GUALLPA (dyspnea on exertion)05/24/2025Results Follow[facility]Up [facility] [address] [place] [facility] [place] [address] Natasha Michaud CNP Vascular US lower extremity venous duplex left05/24/2025Telephone [facility] [address] [place] [facility] [place] [address] Ilsa Coffey MA 04/13/2025 9:00 AM EDTFollow-Up [address] [place] [address] Peterson Bhatia MD Unilateral primary osteoarthritis, left knee (Primary Dx)03/23/2025 1:32 PM EDT - 03/23/2025 11:59 PM EDTHospital Encounter [facility] [address] [place] [address] [place] [address] Discharge Disposition: Home or Self Care (01)03/23/2025 1:15 PM EDTOffice Visit [address] [place] [address] Torsten Marx PA-C Unilateral primary osteoarthritis, left knee (Primary Dx)03/23/2025Orders Only [address] [place] [address] Torsten Marx PA-C Unilateral primary osteoarthritis, left knee (Primary Dx)03/16/2025 11:30 AM EDT Follow-Up [facility] Rheumatology [address] [place] [address] Medina Montes MD Seronegative rheumatoid arthritis (CMS/HCC) (Primary Dx); Methotrexate, mcc, current use; Osteoarthritis of both hands, unspecified osteoarthritis type; Tobacco dependence; Chronic pain of left knee; Sjogren's syndrome, with unspecified organ pdoxvrythyx63/22/2025Refill [facility] Rheumatology [address] [place] [address] Feli Spencer MA Rheumatoid arthritis with rheumatoid factor, unspecified (CMS/HCC)from Last 3 Months Immunizations ImmunizationAdministration DatesNext DueInfluenza, Seasonal, Quadrivalent, Vdzqmnsqfs65/13/2023neumococcal Polysaccharide GBW164010/08/2021Tdap107/04/2022 Family History Medical HistoryRelationNameCommentsNo Known ProblemsFatherCoronary artery diseaseMotherRelationNameStatusCommentsFatherMothercancer brast ca, ovarian, skin, heart disease Social History Tobacco UseTypesPacks/DayYears UsedDateSmoking Tobacco: Every DayCigarettes Passive Smoke Exposure: CurrentSmokeless Tobacco: NeverAlcohol UseStandard Drinks/WeekCommentsNever0 (1 standard drink = 0.6 oz pure alcohol)[facility] Utilities AnswerDate RecordedIn the past 12 months has the [employer], gas, oil, or water [employer] threatened to shut off services in your [...] were you homeless or living in a prison (including now)? No04/13/2025Hunger Vital SignAnswerDate RecordedWithin the past 12 months, you worried that your food would run out before you got the money to buymore.Never true04/13/2025Ran Out of Food in the Last YearNot on file04/13/2025 CommentsUnknownSex and Gender InformationValueDate RecordedSex Assigned at Pkjksj9103/16/2025 10:58 AM EDTLegal TulDrtchq46/29/2022 9:58 PM EDTGender RbvodioqCwcauo71/25/2025 10:58 AM EDTSexual OrientationChoose not to disclose 03/16/2025 10:58 AM EDT Last Filed Vital Signs Vital SignReadingTime TakenCommentsBlood Kmwupmfw72/6905/24/2025 10:16 AM EST Yyngi824705/24/2025 10:16 AM THCGmhipcmqnqp27 ??C (98.6 ??F)07/26/2024 9:20 AM EST Respiratory Yzxa343107/26/2024 9:20 AM ESTOxygen Txoqtuovlf16%05/24/2025 10:16 AM ESTInhaled Oxygen Concentration--Lfqcay835 kg (262 lb)05/24/2025 10:16 AM EST Yadtcl022.9 cm (5' 1 )05/24/2025 10:16 AM ESTBody Mass Index49. 10:16 AM EST Plan of Treatment DateTypeDepartmentCare Team (Latest Contact Info)Udvtqafzboo97/18/2025 11:15 AM ESTFollow-Up [facility] Rheumatology [address] [place] [address] Medina Montes MD [address] [place] [address] Health MaintenanceDue DateLast DoneCommentsCT Ttahepjsbgmx41/14/1974Colonoscopy 1973FIT1973FOBT1973Medicare Annual Wellness (AWV)1973 Xvbaznattpgbk88/14/1974COVID-19 Vaccine (#1)1978Diabetes: Retinopathy Szjusghap88/14/1984Diabetes: Urine Protein Navoeveab03/14/1993Hepatitis B Vaccines (1 of 3 - 19+ 3-dose series)1992HPV/Dwduwj6507/05/2003Mammogram 2013Diabetes: Hemoglobin A1C/neumococcal Vaccine: Pediatrics (0 to 5 Years) and At-Risk Patients (6 to 64 Years) (2 of 2 - PCV) /Zoster Vaccines (1 of 2)4Cervical Cancer Screening 10/23/2024Pap Smear/09/2021Influenza Vaccine (#1)2025 05/04/2023epression Oldgqlwle69/5Colorectal Cancer Screening 09/09/2027FIT-DNA//396373/dult Tmcnqqz31HIB VaccinesAged OutNo longer eligible based on patient's [...] Procedure NamePriorityDate/TimeAssociated DiagnosisCommentsXR KNEE 3 VIEWS LEFT Zlzdgxz4003/23/2025 1:48 PM EDT Unilateral primary osteoarthritis, left knee CBC WITH AUTO ABMKJOYQZVQRNnyjlnx46/25/2025 5:11 PM EDT Methotrexate, mcc, current use CBC AND KIPIBQVABOYAXkbjfax91/25/2025 5:11 PM EDT Methotrexate, mcc, current use COMPREHENSIVE METABOLIC HIMQXZyqjzgs39/25/2025 5:09 PM EDT Methotrexate, director long term care, current use LAB COLOGUARD?? COLON CANCER YKVOGRRmlqggb75/20/2025 2:50 PM EDT Nausea and vomiting, unspecified vomiting type Encounter for screening for malignant neoplasm of colon HEMOGLOBIN E2VGcjdkty86/18/2022 12:16 PM EDT from Last 3 Months [...] medial compartment. Approved by:Huber Lange03/23/2025 3:25 PM. IToño,have reviewed the image(s) and agree with the [...] signed: Toño Molina. Authorizing ProviderResult TypeResult StatusGregory Analisa [facility] XR PROCEDURES Final Result * (ABNORMAL) CBC auto differential (03/16/2025 5:11 PM EDT)ComponentValueRef RangeTest MethodAnalysis TimePerformed AtPathologist SignatureAuto WBC7.104.00 - 10.60 10*3/uL03/16/2025 5:30 PM [facility] ([facility])RBC4.903.80 - 5.00 10*6/uL03/16/2025 5:30 PM [facility] ([facility])Snlgxmnenq21.712.0 - 15.0 g/dL03/16/2025 5:30 PM [facility] ([facility])Zirzizvdmd11.8(H) 36.0 - 45.0 %03/16/2025 5:30 PM [facility] ([facility])MCV93.582.0 - 98.0 fL03/16/2025 5:30 PM [facility] ([facility])MCH30.027.0 - 33.0 pg 03/16/2025 5:30 PM [facility] ([facility])MCHC32.132.0 - 35.0 g/dL 03/16/2025 5:30 PM [facility] ([facility])RDW16.1(H)11.5 - 15.0 % 03/16/2025 5:30 PM [facility] ([facility])Neutrophils %59.240.0 - 72.0 % 03/16/2025 5:30 PM [facility] ([facility])Lymphocytes %29.020.0 - 45.0 % 03/16/2025 5:30 PM [facility] ([facility])Monocytes %8.65.0 - 12.0 % 03/16/2025 5:30 PM [facility] ([facility])Eosinophils %2.40.0 - 6.0 % 03/16/2025 5:30 PM [facility] ([facility])Basophils %0.70.0 - 1.0 % 03/16/2025 5:30 PM [facility] ([facility])Neutrophils Absolute4.201.60 - 7.60 10*3/uL03/16/2025 5:30 PM [facility] ([facility])Lymphocytes Absolute2.061.20 - 4.00 10*3/uL03/16/2025 5:30 PM [facility] ([facility])Monocytes Absolute0.610.10 - 1.00 10*3/uL03/16/2025 5:30 PM [facility] ([facility])Eosinophils Absolute0.170.00 - 0.50 10*3/uL03/16/2025 5:30 PM [facility] ([facility])Basophils Absolute0.050.00 - 0.20 10*3/uL 03/16/2025 5:30 PM [facility] ([facility])Fwyytratz073104 - 400 10*3/uL 03/16/2025 5:30 PM [facility] ([facility])nRBC %0.00 %03/16/2025 5:30 PM [facility] ([facility])Immature Granulocytes %0.10.0 - 1.0 %03/16/2025 5:30 PM [facility] ([facility])Immature Granulocytes Absolute0.010.00 - 0.20 10*3/uL03/16/2025 5:30 PM [facility] ([facility])Specimen (Source) Anatomical Location / LateralityCollection Method / VolumeCollection Time Received TimeBloodVenous blood specimen / UnknownVenipuncture / Unknown 03/16/2025 5:11 PM EDT03/16/2025 5:11 PM EDT Narrative Authorizing ProviderResult TypeResult StatusMedina Montes MDLAB BLOOD ORDERABLESFinal ResultPerforming OrganizationAddressCity/State/ZIP CodePhone Number [facility] ([facility]) [address] [place] [address] * Comprehensive metabolic panel (03/16/2025 5:09 PM EDT)ComponentValueRef Range Test MethodAnalysis TimePerformed AtPathologist JbiqjzzcbNvelda961441 - 145 mmol/L03/16/2025 5:34 PM [facility] ([facility])Potassium4.53.5 - 5.1 mmol/L03/16/2025 5:34 PM [facility] ([facility])Hfhpiyzo59245 - 107 mmol/L03/16/2025 5:34 PM [facility] ([facility])TZ01486 - 31 mmol/L 03/16/2025 5:34 PM [facility] ([facility])Anion Viu153 - 20 mmol/L 03/16/2025 5:34 PM [facility] ([facility])GUY400 - 25 mg/dL03/16/2025 5:34 PM [facility] ([facility])Creatinine0.760.60 - 1.20 mg/dL03/16/2025 5:34 PM [facility] ([facility])BUN/Creatinine Ratio18.409 5:34 PM [facility] ([facility])Gmfpiuv1978 - 100 mg/dL03/16/2025 5:34 PM EDT [facility] ([facility])Calcium9.38.6 - 10.3 mg/dL03/16/2025 5:34 PM [facility] ([facility])GKG6127 - 39 U/L03/16/2025 5:34 PM [facility] ([facility])ALT (SGPT)147 - 52 U/L03/16/2025 5:34 PM [facility] ([facility]) Alkaline Khryjbgafho8170 - 104 U/L03/16/2025 5:34 PM [facility] ([facility])Total Protein7.16.0 - 8.3 g/dL03/16/2025 5:34 PM [facility] ([facility])Albumin4.23.5 - 5.7 g/dL03/16/2025 5:34 PM [facility] ([facility])Total Bilirubin0.40.3 - 1.0 mg/dL03/16/2025 5:34 PM [facility] ([facility])eGFR94.8>60.0 mL/min/1.73m* 5:34 PM [facility] ([facility])Comment:[facility]???s estimated glomerular filtration rate (eGFR) will no [...] 5:09 PM EDT Narrative Authorizing ProviderResult TypeResult StatusBayareli SANTANA BLOOD ORDERABLESFinal ResultPerforming OrganizationAddressCity/State/ZIP CodePhone Number [facility] ([facility]) [address] [place] [address] * Cologuard?? colon cancer screening (09/08/2024 2:50 PM EDT)Specimen (Source) Anatomical Location / LateralityCollection Method / VolumeCollection Time Received TimeStool Narrative Authorizing ProviderResult TypeResult StatusRobertanalisa [facility] ORDERABLESFinal ResultPerforming OrganizationAddressCity/State/ZIP CodePhone Number [employer] * Hemoglobin A1c (02/06/2022 12:16 PM EDT)ComponentValueRef RangeTest Method Analysis TimePerformed AtPathologist SignatureHemoglobin A1C5.54.0 - 6.0 %LAB CONVERSIONSEstimated Average Pqtixeg241gkyn/LLAB CONVERSIONSSpecimen (Source) Anatomical Location / LateralityCollection Method / VolumeCollection Time Received Time02/06/2022 12:16 PM EDT02/06/2022 12:16 PM EDT Narrative Authorizing ProviderResult TypeResult StatusMaged Jannette SANTANA BLOOD ORDERABLES Final ResultPerforming OrganizationAddressCity/State/ZIP CodePhone Number LAB CONVERSIONS from Last 3 Months or Most Recently Relevant to Health Maintenance Insurance Care Teams Team MemberRelationshipSpecialtyStart DateEnd Date Sergo Syl [address] PCP - Rkszggj18/12/24 Roscoe Phan MD [address] [id number] Referring PhysicianPulmonary Disease09/29/23 Ysabel Gomez CNP [address] [place] [address] Nurse PractitionerGastroenterology09/08/24
--- OUTSIDE RECORDS SUMMARY | 2025-06-06 09:03 | XMS_ITS | Encounter Summary ---
Author Organization [facility] tem Address [id number] [address] [place] [address] Care Team Providers Care Research Neuropsychologist Name Role Phone Wally Ghosh MD Primary Care Provider + Reason for Visit * ReasonOnset DateCommentsSleep Lab5COMP Encounter Details DateTypeDepartmentCare Team (Latest Contact Info)Vxzvnyizzyn83/13/2025Telephone [facility] - Sleep Disorders [address] [place] [phone] Denisha Mensah MD [address] [place] [address] Sleep Lab (COMP) Social History Tobacco UseTypesPacks/DayYears UsedDateSmoking Tobacco: Every DayCigarettes Smokeless Tobacco: NeverAlcohol UseStandard Drinks/WeekCommentsYes0 (1 standard drink = 0.6 oz pure alcohol)rareChildcareAnswerDate RecordedChildcareUnknown 12/01/2018EmploymentAnswerDate QszztvurNilwegxbooTixkwrw68/12/2019Hunger ScreeningAnswerDate RecordedWithin the past 12 months we worried whether our food would run out before we got money to buy more.Never True03/31/2023Within the past 12 months the food we bought just didn't last and we didn't have money to get more.Never True3Purpose - LifeAnswerDate RecordedPurpose and direction in jpomAphnvms43/11/2021CommentsUnknownSex and Gender InformationValueDate RecordedSex Assigned at BirthNot on fileLegal SexFemale 01/25/2015 11:49 AM EDTGender IdentityNot on fileSexual OrientationNot on file documented as of this encounter Miscellaneous Notes * Telephone Encounter - Sade Ibanez - 05/04/2025 9:13 AM EST 05/02 received COMP order 05/04 Scheduled at [facility], PSG 05/24, CPAP 06/26 Confirmed via mychart and email [employer] [place]-chatted auth for add on Patient does not want on waitlist COMP order and 05/02 Mensah notes in epic TCO2 Expedite - severe symptoms and sleepiness * Telephone Encounter - Kayla Franz - 05/04/2025 9:13 AM EST AUTH/START PSG([id number])/[facility] Auth# [id number] Valid dates: 05/05/2025 - 08/02/2025 Auth uploaded to * Telephone Encounter - Arcelia Segundo - 05/04/2025 9:13 AM EST Ms. Mendoza completed her PSG check in DME choice [facility] patient Depression * Telephone Encounter - Arcelia Segundo - 05/04/2025 9:13 AM EST Routed hub to remove pt 1/5 PAP appt, as Split completed on PSG test * Telephone Encounter - Arcelia Segundo - 05/04/2025 9:13 AM EST Split night Polysomnogram on 2025-05-24 AHI (3%)=42.4 events/hour; AHI (4%)=18.1 events/hour; Bashir SpO2=82.0%; Routed Makenna / naa indicated as expedite due to EDS * Telephone Encounter - Lesvia Lary - 05/04/2025 9:13 AM EST 05/25 Cancelled PAP as requested by Tech, split was completed Order Deferred documented in this encounter Plan of Treatment DateTypeDepartmentCare Team (Latest Contact Info)Mlztmzgslzd74/15/2026 10:00 AM ESTOffice Visit [facility] [address] [place] [address] Aminata Deluca DO [address] [place] [address] 08/29/2025 10:00 AM EDTOffice Visit [facility] [address] [place] [address] Denisha Mensah MD [address] [facility] [place] [address] documented as of this encounter Visit Diagnoses Not on filedocumented in this encounter Care Teams Team MemberRelationshipSpecialtyStart DateEnd Date Wally Ghosh MD [address] [place] [address] PCP - GeneralInternal Medicine08/08/21documented as of this encounter
--- OUTSIDE RECORDS SUMMARY | 2025-06-06 09:03 | XMS_ITS | Clinical Summary ---
Author Organization [facility] tem Address [id number] [address] [place] [address] Care Team Providers Care Ophthalmic Technician Name Role Phone Wally Ghosh MD Primary Care Provider + Allergies Active AllergyReactionsCriticalityNoted DateCommentsDoxycycline HclHives 03/02/2017Sumatriptan Ucyouizdv39/11/2984Anhwdtdwrot56/21/2022 Other reaction(s): feels like on fire Nsaids (Non-Steroidal Anti-Inflammatory Drug)03/02/20170828Bokycojv09/11/2017 DulaglutideNausea And Hajqujiv61/10/2023 Medications * This document contains information received from the source organization and may not represent a complete record from that organization. MedicationSigDispense QuantityRefillsLast FilledStart DateEnd DateStatus cariprazine (VRAYLAR) 3 mg capsule Take 4.5 mg by mouth in the morning.Active metoprolol succinate XL (TOPROL XL) 25 mg 24 hr tablet Take 1 tablet (25 mg total) by mouth in the morning.Active furosemide (LASIX) 40 mg tablet Take 1 tablet (40 mg total) by mouth 2 (two) times a day. prnActive lamoTRIgine (LaMICtal) 25 mg tablet Take 1 tablet (25 mg total) by mouth in the morning.Active prazosin (MINIPRESS) 1 mg capsule Take 1 capsule (1 mg total) by mouth nightly.Active atorvastatin (LIPITOR) 10 mg tablet Indications:Tobacco abuse,DyslipidemiaTake 1 tablet (10 mg total) by mouth in the morning. 90 tablet ctive dapagliflozin propanediol (FARXIGA) 10 mg tablet Take 1 tablet (10 mg total) by mouth in the morning./6Active EnbreL SureClick 50 mg/mL (1 mL) pen injector inject 1 pen (50mg) UNDER THE SKIN every 7 DAYSActive fqiazijvrjy-pwtqrlfop-mjslqhmq (TRELEGY ELLIPTA) 200-62.5-25 mcg blister with device Inhale 1 puff in the morning.Active folic acid (FOLVITE) 1 mg tablet Take 1 tablet (1 mg total) by mouth in the morning.5Active HYDROmorphone (DILAUDID) 2 mg tablet by other route.Active hydrOXYzine (ATARAX) 50 mg tablet Take 1 tablet (50 mg total) by mouth.Active lisdexamfetamine (VYVANSE) 30 mg capsule 5Active lisinopriL (PRINIVIL,ZESTRIL) 20 mg tablet Take by mouth daily.Active metFORMIN XR (GLUCOPHAGE XR) 750 mg 24 hr tablet Take by mouth daily.Active methotrexate 2.5 mg chemo tablet Take 10 tab PO ndzceg405Active multivitamin (THERAGRAN) tablet Take 1 tablet by mouth in the morning.Active pantoprazole (PROTONIX) 40 mg EC tablet 5Active pilocarpine (SALAGEN) 7.5 MG tablet 5Active traZODone (DESYREL) 150 mg tablet Take 150 mg by mouth in the morning and at bedtime. TAKE 1 TABLET BY ORAL ROUTE 2 TIMES EVERY DAYActive Active Problems ProblemNoted DateDiagnosed DateSeronegative rheumatoid /07/2024 Cqvirny4410/29/2021hest pain10/29/2021MI 40.0-44.9, adult10/29/2021Tobacco abuse 2891Urwnkbfhyhbj84/10/2022ipolar II qseismnd82/21/2017Panic disorder 03/12/2017Major depressive disorder, recurrent episode, ruczcguk57/16/2017 Encounters DateTypeDepartmentCare AaejDjulmiwlrgv89/05/2025Orders Only [facility] [address] [place] [address] Ref Prov, Not In System 05/25/2025Telephone [facility] [address] [place] [address] Denisha Mensah MD 05/24/2025 8:00 PM ESTClinical Support [facility] - Sleep Disorders [address] [place] [address] Denisha Mensah MD CESARIO (obstructive sleep apnea); Congestive heart failure, unspecified HF chronicity, unspecified heart failure type (CMS-HCC)05/24/20255588Ozxyes37/01/8178Ysyvvx65/13/2025Telephone [facility] Division of [facility] - Sleep Disorders [address] [place] [address] Denisha Mensah MD Sleep Lab (COMP)05/02/2025 11:[address] [facility] [address] [place] [phone] Denisha Mensah MD CESARIO (obstructive sleep apnea) (Primary Dx); Congestive heart failure, unspecified HF chronicity, unspecified heart failure type (CMS-HCC); Chronic obstructive pulmonary disease, unspecified COPD type (CMS-HCC); Hypersomnia; Class 3 severe obesity due to excess calories with serious comorbidity and body mass index (BMI) of45.0 to 49.9 in adult (CMS-HCC); Chronic, continuous use of opioids; Bipolar II disorder ([facility]-H[facility])05/02/2025Telephone [facility] [address] [place] [address] Pooja Coronel RMA 05/02/20256628Afuath34/25/2025 1:58 PM EDT - 03/16/2025 11:59 PM EDTHospital Encounter [facility] - Vascular [address] [place] [phone] Cellulitis of left lower extremity Discharge Disposition: Home03/16/2025Travelfrom Last 3 Months Family History Medical HistoryRelationNameCommentsDiabetesMaternal GrandfatherHypothyroidism MotherBrain TumorSisterRelationNameStatusCommentsMaternal GrandfatherMother Sister Social History Tobacco UseTypesPacks/DayYears UsedDateSmoking Tobacco: Every DayCigarettes Smokeless Tobacco: Never Tobacco Cessation:Ready to Q uit: Not Asked; Counseling Given: Not Answered Alcohol UseStandard Drinks/WeekCommentsYes0 (1 standard drink = 0.6 oz pure alcohol)rareChildcareAnswerDate MoyedhklUhzcvsqkdTwwhxvq83/12/2019Employment AnswerDate AeracikyPhxawrhwlvPqutkah97/12/2019Hunger ScreeningAnswerDate RecordedWithin the past 12 months we worried whether our food would run out before we got money to buy more.Never True03/31/2023Within the past 12 months the food we bought just didn't last and we didn't have money to get more.Never True3Purpose - LifeAnswerDate RecordedPurpose and direction in life Gmbcchq61/11/2021CommentsUnknownSex and Gender InformationValueDate RecordedSex Assigned at BirthNot on fileLegal EvrPhrrqv29/06/2015 11:49 AM EDT Gender IdentityNot on fileSexual OrientationNot on file Last Filed Vital Signs Vital SignReadingTime TakenCommentsBlood Pdvvculx438/6205/02/2025 10:48 AM EST Klkcx106005/02/2025 10:48 AM ESTTemperature--Respiratory Rate--Oxygen Saturation 93%05/02/2025 10:48 AM ESTInhaled Oxygen Concentration--Iqbdxl224.5 kg (259 lb) 05/24/2025 8:06 PM JIGYweiog499.9 cm (5' 1 )05/24/2025 8:06 PM ESTBody Mass Index48.9405/24/2025 8:06 PM EST Plan of Treatment DateTypeDepartmentCare Team (Latest Contact Info)Daiviwggnsc03/15/2026 10:00 AM ESTOffice Visit [facility] [address] [place] [address] Aminata Deluca, DO [address] [address] 08/29/2025 10:00 AM EDTOffice Visit [facility] [address] [place] [address] Denisha Mensah MD [address] [place] [address] Health MaintenanceDue DateLast DoneCommentsTobacco Cpuwaljeyo52/14/1974 Depression Rzummeocv36/14/1986Adult BMI Follow Up Plan1991Zoster (Shingles) Vaccine (1 of 2)1992Pap Smear/09/2021Influenza Vzxopav97dult BMI Qahcpdhrq15/08/2024Tobacco Amrccwxfn75DTaP,Tdap and Td Vaccines (2 - Td or Tdap) Medical Devices Not on file Procedures Procedure NamePriorityDate/TimeAssociated DiagnosisCommentsPOLYSOMNOGRAPHY 4 OR MORE PARAMETERS WITH PAP AGHYMEEIDDgbsbdz94/05/2025 10:02 AM ESTPOLYSOMNOGRAPHY 4 OR MORE YZTQGBXCNKEzugleg37/05/2025 10:01 AM ESTPOLYSOMNOGRAPHY 4 OR MORE HCKRSTXJGXWtlcymg80/03/2025 8:00 PM EST CESARIO (obstructive sleep apnea) Congestive heart failure, unspecified HF chronicity, unspecified heart failure type ([facility]) VASC VENOUS DUPLEX LOWER HBFWKTVK86/25/2025 2:42 PM EDT Cellulitis of left lower extremity from Last 3 Months Results * Polysomnography 4 or more parameters with PAP titration (05/26/2025 10:02 AM EST) Narrative Authorizing ProviderResult TypeResult StatusNot In System Ref ProvSLEEP CENTER ORDERABLESFinal ResultPerforming OrganizationAddressCity/State/ZIP CodePhone Number MANUALLY TRANSCRIBED RESULTS * PSG Diagnostic (05/26/2025 10:01 AM EST) Narrative Authorizing ProviderResult TypeResult StatusNot In System Ref [facility] ORDERABLESFinal ResultPerforming OrganizationAddressCity/State/ZIP CodePhone Number MANUALLY TRANSCRIBED RESULTS * PSG Diagnostic (05/24/2025 8:00 PM EST)Specimen (Source)Anatomical Location / LateralityCollection Method / VolumeCollection TimeReceived Time05/24/2025 8:00 PM EST Narrative [facility] - 05/25/2025 10:52 AM EST INTERPRETED Authorizing ProviderResult TypeResult StatusAbbey E Mensah MDSDECATUR [facility] ORDERABLESFinal ResultPerforming OrganizationAddressCity/State/ZIP CodePhone Number [facility] * Vas venous duplex lwr single left (03/16/2025 2:42 PM EDT)Anatomical Region LateralityModalityVascularLeftUltrasoundSpecimen (Source)Anatomical Location / LateralityCollection Method / VolumeCollection TimeReceived Time03/16/2025 2:45 PM EDT Narrative 03/16/2025 7:00 PM EDT Right: Common femoral vein is compressible with spontaneous phasic spectral Doppler waveforms. Left: Non-visualization of peroneal veins due to edema. Limited visualization of veins in the thighand calf due to edema and body habitus. Remaining visualized deep venous segments are compressible with spontaneous phasic spectral Doppler waveforms. Superficial veins are compressible. Conclusions: Limited visualization of lower extremity venous segments.NO EVIDENCE of deep or superficial vein thrombosis of the left lower extremity. ?No evidence of deep vein thrombosis (DVT) ofthe right common femoral vein. ? Procedure Note Burt Thurston MD - 03/16/2025 Right: Common femoral vein is compressible with spontaneous phasicspectral Doppler waveforms. Left: Non-visualization of peroneal veins due to edema. Limitedvisualization of veins in the thigh and calf due to edema and bodyhabitus. Remaining visualized deep venous segments are compressible withspontaneous phasic spectral Doppler waveforms. Superficial veins are compressible. Conclusions: Limited visualization of lower extremity venous segments.NOEVIDENCE of deep or superficial vein thrombosis of the left lowerextremity. No evidence of deep vein thrombosis (DVT) of the rightcommon femoral vein. Authorizing ProviderResult TypeResult StatusRamsha Roly MDCV VASCULAR ORDERABLESFinal Result from Last 3 Months Insurance Care Teams Team MemberRelationshipSpecialtyStart DateEnd Date Wally Ghosh MD [address] [place] [address] PCP - GeneralInternal Medicine08/08/21
--- OUTSIDE RECORDS SUMMARY | 2025-06-06 09:03 | XMS_ITS | Encounter Summary ---
Author Organization [facility] [employer] tem Address [id number] [address] [place] [address] Care Team Providers Care Assurance Sourcing Manager Name Role Phone Wally Ghosh MD Primary Care Provider + Encounter Details DateTypeDepartmentCare Team (Latest Contact Info)Toblidtloas17/04/2025Telephone [facility] [address] [facility] [address] [place] [address] Denisha Mensah MD [address] [place] [address] Social History Tobacco UseTypesPacks/DayYears UsedDateSmoking Tobacco: Every DayCigarettes Smokeless Tobacco: NeverAlcohol UseStandard Drinks/WeekCommentsYes0 (1 standard drink = 0.6 oz pure alcohol)rareChildcareAnswerDate RecordedChildcareUnknown 12/01/2018EmploymentAnswerDate RorsbkvzSgsjeytnplWtuavdw79/12/2019Hunger ScreeningAnswerDate RecordedWithin the past 12 months we worried whether our food would run out before we got money to buy more.Never True03/31/2023Within the past 12 months the food we bought just didn't last and we didn't have money to get more.Never True3Purpose - LifeAnswerDate RecordedPurpose and direction in cazxHtucsva54/11/2021CommentsUnknownSex and Gender InformationValueDate RecordedSex Assigned at BirthNot on fileLegal SexFemale 01/25/2015 11:49 AM EDTGender IdentityNot on fileSexual OrientationNot on file documented as of this encounter Miscellaneous Notes * Telephone Encounter - Denisha Mensah MD - 05/25/2025 10:47 AM EST Please let her know results I have ordered BiPAP and oxygen for her - will need compliance visit She needs supplemental oxygen, she does have CHF but also reported a history of COPD and asthma, current smoker. Has visit with Dr. Deluca scheduled. Please advise her that she cannot smoke around oxygen due to fire risk Split night polysomnogram on 05/24/2025 AHI (3%)=42.4 events/hour; AHI (4%)=18.1 events/hour; Bashir SpO2=82.0%; (Ggewtj=003.0 lbs; BMI=49.5kg/m2) DIAGNOSIS: Obstructive Sleep Apnea (G47.33) Sleep Related Hypoxemia - ICD code G47.36 COMMENTS: The baseline portion of the split-night study demonstrated severe obstructive sleep apnea. The patient slept supine on a wedge cushion for the study. There was hypoxemia observed independent of obstructive events with oxygen saturations 86-88%; clinical correlation advised. There was no sleep related hypoventilation on TCO2 monitoring. Due to the severity of sleep disordered breathing, CPAP was initiated. CPAP 10- 16 cm of water were tested. Due to CPAP failure to treat obstructive events BiPAP was then initiated. At BiPAP 20/15 cm of water obstructive events were treated but hypoxemia persisted with oxygen saturations 88% or lessfor 17.9 minutes. Supplemental oxygen was then added at 1 L/min and titrated to 2L/min to maintain baseline oxygen saturations above 88%. BiPAP 22/16 cm of water with 2 L/min supplemental oxygen effectively treated this patient's sleep disordered breathing and was tested in supine REM sleep. * Telephone Encounter - Bonny Giraldo - 05/25/2025 10:47 AM EST Faxed all info to [facility] with request for expeditied setup with BiPAP and 2 L O2 bled in. LVM to review results / notify of BiPAP/ O2 orders and schedule compliance RV with AD. [address]. Reminder in place for another attempt * Telephone Encounter - Bonny Giraldo - 05/25/2025 10:47 AM EST Images from the original note were not included. Reviewed SN results with pt/ notified of order for BiPAP and O2 faxed to [facility] and need to sleep elevated as did in sleep lab. Reviewed also not to smoke around the O2 due to fire risk/ pt voiced understanding. Scheduled compliance RV with AD on 08/29. My chart message also sent Fax confirmation received documented in this encounter Plan of Treatment DateTypeDepartmentCare Team (Latest Contact Info)Mlqzpgzgbpj17/15/2026 10:00 AM ESTOffice Visit [facility] [address] [place] [address] Aminata Deluca DO [address] [facility] [address] [place] [address] 08/29/2025 10:00 AM EDTOffice Visit [facility] [address] [place] [phone] Denisha Mensah MD [address] [facility] [place] [address] documented as of this encounter Visit Diagnoses Not on filedocumented in this encounter Care Teams Team MemberRelationshipSpecialtyStart DateEnd Date Wally Ghosh MD [address] [place] [address] PCP - GeneralInternal Medicine08/08/21documented as of this encounter
--- OUTSIDE RECORDS SUMMARY | 2025-06-06 09:03 | XMS_ITS | Clinical Summary ---
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 - [employer] Primary Care Provi orly Allergies Active AllergyReactionsCriticalityNoted RvpxIormskucIrntkhspkhgZfjph81/31/2023 Ibcnpwoikqc98/31/2023 [place] like head was on fire Xnfesm7802/19/2023 Pt takes methotrexate and is not able to take NSAIDS DulaglutideNausea And TvxfxyduCjfj48/31/2023 Medications MedicationSigDispense QuantityRefillsLast FilledStart DateEnd DateStatus albuterol sulfate HFA (PROVENTIL;VENTOLIN;PROAIR) 108 (90 Base) MCG/ACT inhaler Inhale 2 puffs into the lungs daily as gchivw8302/11/2023ctive atorvastatin (LIPITOR) 10 MG tablet Take 1 tablet by mouth every lzunxmn1602/03/2023ctive busPIRone (BUSPAR) 10 MG tablet Take 1 tablet by mouth daily11/21/2022ctive VRAYLAR 4.5 MG CAPS capsule Take 1 capsule by mouth daily11/24/2022ctive DULoxetine (CYMBALTA) 60 MG extended release capsule Take 1 capsule by mouth every ydutucs3611/21/2022ctive TRELEGY ELLIPTA 100-62.5-25 MCG/ACT AEPB inhaler Inhale 1 puff into the lungs rqghnvg7012/12/2022ctive folic acid (FOLVITE) 1 MG tablet Take 1 tablet by mouth every elsiigo1302/03/2023ctive furosemide (LASIX) 80 MG tablet Take 1 tablet by mouth daily as unqfag5701/24/2023ctive lamoTRIgine (LAMICTAL) 100 MG tablet Take 1 tablet by mouth every morning Takes for Mrvndlc8312/03/2022ctive methotrexate (RHEUMATREX) 2.5 MG chemo tablet Take 1 tablet by mouth once a week Takes on Fklnfqz4402/17/2023ctive metoprolol succinate (TOPROL XL) 25 MG extended release tablet Take 1 tablet by mouth daily01/09/2023ctive omeprazole (PRILOSEC) 20 MG delayed release capsule Take 1 capsule by mouth cjdfvub7902/10/2023ctive prazosin (MINIPRESS) 1 MG capsule Take 1 capsule by mouth ehxljbo1501/24/2023ctive spironolactone (ALDACTONE) 25 MG tablet Take 1 tablet by mouth daily02/03/2023ctive traZODone (DESYREL) 100 MG tablet Take 1.5 tablets by mouth fozjabd8801/05/2023ctive tiZANidine (ZANAFLEX) 2 MG tablet Take 1 tablet by mouth 3 times daily as racdqi5601/16/2023ctive Social History Tobacco UseTypesPacks/DayYears UsedDateSmoking Tobacco: Every DayCigarettes0.525 Smokeless Tobacco: Never Tobacco Cessation:Ready to Q uit: No Alcohol UseStandard Drinks/WeekCommentsYes0 (1 standard drink = 0.6 oz pure alcohol)very rare- maybe twice a yearInterpersonal Safety Domain Source: IP Abuse ScreeningAnswerDate RecordedPhysical abuseNot on file03/05/2023Read-Only, Retired: Verbal HmwijPgxkid49/14/2023Read-Only, Retired: Emotional abuseDenies 03/05/2023Read-Only, Retired: Financial BmfmzOjxlnj01/14/2023Read-Only, Retired: Sexual cbufaMhcztz27/14/2023CommentsNoSex and Gender InformationValue Date RecordedSex Assigned at BirthNot on fileLegal KnpIbgevp84/10/2013 6:36 PM ESTGender IdentityNot on fileSexual OrientationNot on file Last Filed Vital Signs Vital SignReadingTime TakenCommentsBlood Dtemiirf034/7609 4:45 PM EDT Iqslv260603/05/2023 4:45 PM QDRBaertjyjecn45.2 ??C (97.2 ??F)03/05/2023 4:45 PM EDTRespiratory Xhco4334/ 4:45 PM EDTOxygen Qbkdcwxctg78%03/05/2023 4:45 PM EDTInhaled Oxygen Concentration--Nqousa648.4 kg (261 lb)03/05/2023 12:57 PM JXRJwadgb876.9 cm (5' 1 )03/05/2023 12:57 PM EDTBody Mass Index49.32003/05/2023 12:57 PM EDT Plan of Treatment Health MaintenanceDue DateLast DoneCommentsCOVID-19 Vaccine (#1)1978Lipids 1983Depression Jhinrg8207/05/1985HIV hjjnsb1207/05/1988Hepatitis C screen 1991DTaP/Tdap/Td vaccine (1 - Tdap)1992Hepatitis B vaccine (1 of 3 - 19+ 3-dose series)1992Pneumococcal 50+ years Vaccine (1 of 2 - PCV) 1992Pap smear1994Cervical cancer ivnlra6607/05/2003HPV (without or with Pap)2003Breast cancer evtgvi5007/05/20132424Iknzfyytqjf67/14/2019Colorectal Cancer Mskvan5207/05/2018FIT/FOBT: Average risk2018Fecal-DNA (Cologuard): Average risk2018Sigmoidoscopy/CT nwlaovrsiquf77/14/2019Annual Wellness Visit (Medicare)05/18/2023Shingles vaccine (1 of 2)4A1C test (Diabetic or Prediabetic)Flu vaccine (#1)01/20/2025Diabetes screen Nkpauzfrnhah51/31/2023Hepatitis A vaccineAged OutNo longer eligible based on patient's age to complete this topicHib vaccineAged OutNo longer eligible based on patient's age to complete this topicMeningococcal (ACWY) vaccineAged OutNo longer eligible based on patient's age to complete this topicMeningococcal B vaccineAged OutNo longer eligible based on patient's age to complete this topic Polio vaccineAged OutNo longer eligible based on patient's age to complete this topic Medical Devices ImplantedTypeAreaManufacturerDevice IdentifierShelf Expiration DateModel / Serial / LotPump Infus 40ml 0.048ml/Day Dia87.5mm Thk19.5mm Ith Ti - [id number] Implanted:Qty: 1 on 03/05[facility] Hip[employer]ONIC [employer]-WD07/19/[id number] / [id number] / Kit Catheter Rev Seg W Attch Sutureless Associate Partner Conn 2 Cllt Rul - [id number] Implanted:Qty: 1 on 03/05/2023 [facility] [employer]-WD09/04/[id number] / / [id number] Procedures Procedure NamePriorityDate/TimeAssociated DiagnosisCommentsHEMOGLOBIN W9SYJJP 02/19/2023 2:37 PM EDT from Last 3 Months or Most Recently Relevant to Health Maintenance Results * Hemoglobin A1C (02/19/2023 2:37 PM EDT)ComponentValueRef RangeTest Method Analysis TimePerformed AtPathologist SignatureHemoglobin A1C5.94.0 - 6.0 % 02/19/2023 2:37 PM EDTMERCY LABORATORIESEstimated Avg Nimsrij860eb/dL 02/19/2023 2:37 PM EDTMERCY LABORATORIESComment: The ADA and AACC recommend providing the estimated average glucose result to permit better patient understanding of their HBA1c result. Specimen (Source)Anatomical Location / LateralityCollection Method / Volume Collection TimeReceived TimeBLOOD SPECIMEN / Naglcez9002/19/2023 2:37 PM EDT 02/19/2023 2:38 PM EDT Narrative Authorizing ProviderResult TypeResult StatusCarlos Kaur DOCHEMISTRY ORDERABLESFinal ResultPerforming OrganizationAddressCity/State/ZIP CodePhone Number [facility] [address] [place] [address], [facility] [phone] [facility] [address] [place] [address], [facility] [phone] from Last 3 Months or Most Recently Relevant to Health Maintenance Insurance Care Teams Team MemberRelationshipSpecialtyStart DateEnd Date Donnie Kaminski APRN - NP PCP - GeneralNurse Practitioner02/19/23
--- OUTSIDE RECORDS SUMMARY | 2025-06-06 09:03 | XMS_ITS | Patient Health Record ---
Author Organization [facility] in [place] Address [address] [place] [address] Care Team Providers Care Cdl A Driver Name Role Phone Bertin Moreno Primary Care Provider Unavailab le Provider, Radiology Unavailable [phone] Mohit Dejesus Unavailable [phone] Jasmyn Garibay Unavailable [phone] Jessica Millan Unavailable [phone] Julia Fernandez Unavailable Roscoe Phan Unavailable [phone] Allergies Allergen (clinical drug ingredient) Drug/Non Drug Allergy documented on EMR Reaction Allergy Type Onset Date Status sumatriptan Imitrex feels like on fire Drug Allergy ActiveoxytocinPitocinanaphylactic shockDrug AllergyActivedulaglutideTrulicity vomitingDrug AllergyActivedoxycyclineDoxycyclinehivesDrug AllergyActive Results Component Value Reference Range Notes PAIN CLINICAL DRUG SURVEY 12 , PAINS (Inculdes Alcohol, Heroin, Fentanyl and Tramadol w confirm) Reviewed date:03/20/2025 01:37:06 PM Interpretation: Performing Lab:[facility], [address] [place], [address] [phone] Notes/Report: This drug testing is for medical treatment only. THC METABOLITE URINE SCREEN = POSITIVE Analysis was performed as non-forensic testing and the results should be used only by healthcare Specimen sent for confirmation testing for THC - [facility] test # [id number] providers to render diagnosis or treatment, or to monitor the progress of medical conditions. FACILITY: [facility] [id number] CREAT, URINE 61.36 (20.00 - 320.0) MG/DL PH, URINE<5.0(5.0 - 9.0)ALCOHOL, UR.NEG(< 10 - Cutof) MG/DLAMPHETAMINES, UR.NEG (< 500 - Cutof) NG/MLBARBITURATES, UR.NEG(< 300 - Cutof) NG/MLBENZODIAZEPINES, UR.NEG(< 100 - Cutof) NG/MLTHC METABOLITE, UR.POS(< 20 - Cutof) NG/MLCOCAINE METAB. UR.NEG(< 150 - Cutof) NG/MLMETHADONE METAB. UR.NEG(< 100 - Cutof) NG/ML OPIATES, UR.NEG(< 100 - Cutof) NG/MLOXYCODONE, UR.NEG(< 100 - Cutof) NG/ML PHENCYCLIDINE, UR.NEG(< 25 - Cutof) NG/MLHEROIN METAB. UR.NEG(< 10 - Cutof) NG/MLFENTANYL, UR SCREENNEG(< 1.0 - Cutof) NG/MLTRAMADOL, UR SCREENNEG(< 200 - Cutof) NG/MLALCOHOL (ETHANOL), URINE SCREEN w CONFIRMATION Reviewed date:12/29/2024 07:07:05 AM Interpretation: Performing Lab:[facility], [facility] HospitalEvabDD[address] Cullen Sarah Notes/Report: FASTING:UNKNOWN FASTING: UNKNOWNTRAMADOL, UR. QUANTITATIVE Reviewed date:12/29/2024 07:06:57 AM Interpretation: Performing Lab:[facility] [employer], [facility] HospitalXdlvKU[address] Cullen Sarah Notes/Report: FASTING:UNKNOWN FASTING: UNKNOWNDesmethyltramadolNEGATIVE<100 ng/mLTramadol CommentsSee LDT NotesBUPRENORPHINE/NORBUPRENORPHINE, UR. QUANT (SUBOXONE/SUBUTEX) Reviewed date:12/29/2024 07:07:03 AM Interpretation: Performing Lab:[facility]-[employer], [facility] HospitalGmnpOY[address] Cullen Sarah Notes/Report: FASTING:UNKNOWN FASTING: UNKNOWNBuprenorphineNEGATIVE<5 ng/mLHEROIN METAB SCREEN W/CONFIRMATION, URINE Reviewed date:12/29/2024 07:07:01 AM Interpretation: Performing Lab:[facility]-Reji [address], Reji PeteGarkQL[address] Cullen Sarah Notes/Report: FASTING:UNKNOWN FASTING: UNKNOWN6 AcetylmorphineNEGATIVE<10 ng/mLDRUG MONITORING TEMPLATE Reviewed date:12/29/2024 07:06:53 AM Interpretation: Performing Lab:[facility]-[address], Reji PeteVlcsCS[address] Cullen Sarah Notes/Report: FASTING:UNKNOWN FASTING: UNKNOWNNotes and Comments This drug testing is for medical treatment only. Analysis was performed as non-forensic testing and these results should be used only by healthcare providers to render diagnosis or treatment, or to monitor progress of medical conditions. Marijuana Notes: Marijuana Metabolite detected is consistent with exposure to Marijuana (THC) and/or hemp derived products. Some jurisdictions do not include hemp within the definition of Marijuana. LDT Notes: Confirmation tests were developed and their analytical performance characteristics have been determined by [facility]. It has not been cleared or approved by the FDA. This assay has been validated pursuant to the CLIA regulations and is used for clinical purposes. medMATCH(R) enables providers to identify if drug use is consistent or inconsistent with a corresponding prescribed medication(s) list. Healthcare Providers needing Interpretation assistance, please contact us at [phone] ( ) M-F, 8am to 10pm EST PRESCRIBED DRUGS, medMATCH(R) Reviewed date:12/29/2024 07:07:12 AM Interpretation: Performing Lab:[facility]-Reji [address], Reji ThomsonVjhpQH[address] Cullen Sarah Notes/Report: FASTING:UNKNOWN FASTING: UNKNOWNmedMATCH Summary Prescribed Prescribed Not Prescribed Consistent Inconsistent Inconsistent Marijuana Metabolite DRUG MONITOR, PANEL 1, W/CONF, URINE Reviewed date:12/29/2024 07:07:09 AM Interpretation: Performing Lab:[facility] CarSand[facility] Critical Access Hospitale[address], [facility] HospitalOuskXL[address] Cullen Sarah Notes/Report: FASTING:UNKNOWN FASTING: UNKNOWNAmphetaminesNEGATIVE<500 ng/mLBarbituratesNEGATIVE<300 ng/mL BenzodiazepinesNEGATIVE<100 ng/mLCocaine MetaboliteNEGATIVE<150 ng/mLMarijuana MetabolitePOSITIVE<20 ng/mLMarijuana Qqtrphqnwg1251<5 ng/mLmedMATCH Marijuana MetabINCONSISTENTSee Marijuana Notes, LDT NotesMarijuana CommentsSee Marijuana Notes, LDT NotesMethadone MetaboliteNEGATIVE<100 ng/mLOpiatesNEGATIVE<100 ng/mL OxycodoneNEGATIVE<100 ng/mLPhencyclidineNEGATIVE<25 ng/jQBqfcnmwteg44.7> or = 20.0 mg/dLpH6.84.5-9.0OxidantNEGATIVE<200 mcg/mLFENTANYL, QUANTITATIVE, URINE Reviewed date:12/29/2024 07:06:59 AM Interpretation: Performing Lab:[facility] [employer] [address], [facility] HospitalFpyqHT[address] Cullen Sarah Notes/Report: FASTING:UNKNOWN FASTING: UNKNOWNFentanylNEGATIVE<0.5 ng/mLNorfentanylNEGATIVE<0.5 ng/mLFentanyl CommentsSee LDT NotesALCOHOL (ETHANOL), URINE SCREEN w CONFIRMATION (Not yet reviewed by provider) Interpretation: Performing Lab:[facility] [employer] [address], [facility] HospitalHedkHL[address] Cullen Sarah Notes/Report: FASTING:UNKNOWN FASTING: UNKNOWNTRAMADOL, UR. QUANTITATIVE (Not yet reviewed by provider) Interpretation: Performing Lab:[facility] [employer], [facility] HospitalBjeyNX[address] Cullen Sarah Notes/Report: FASTING:UNKNOWN FASTING: UNKNOWNDesmethyltramadolNEGATIVE<100 ng/mLTramadol CommentsSee LDT NotesBUPRENORPHINE/NORBUPRENORPHINE, UR. QUANT (SUBOXONE/SUBUTEX) (Not yet reviewed by provider) Interpretation: Performing Lab:[facility] [address], [facility] HospitalHhdvAK[address] Cullen Sraah Notes/Report: FASTING:UNKNOWN FASTING: UNKNOWNBuprenorphineNEGATIVE<5 ng/mLHEROIN METAB SCREEN W/CONFIRMATION, URINE (Not yet reviewed by provider) Interpretation: Performing Lab:[facility] [address]ip[address] [facility], [place] FsqkJL[address] Cullen Sarah Notes/Report: FASTING:UNKNOWN FASTING: UNKNOWN6 AcetylmorphineNEGATIVE<10 ng/mLDRUG MONITORING TEMPLATE (Not yet reviewed by provider) Interpretation: Performing Lab:[facility] Pmdt[address] [facility]icestel [facility] [place] TybiLM[address] Cullen Sarah Notes/Report: FASTING:UNKNOWN FASTING: UNKNOWNNotes and Comments This drug testing is for medical treatment only. Analysis was performed as non-forensic testing and these results should be used only by healthcare providers to render diagnosis or treatment, or to monitor progress of medical conditions. Amphetamines Notes: Amphetamine detected is consistent with the use of the drug Amphetamine. Amphetamine can be a prescribed drug and is also a metabolite of methamphetamine. Marijuana Notes: Marijuana Metabolite detected is consistent with exposure to Marijuana (THC) and/or hemp derived products. Some jurisdictions do not include hemp within the definition of Marijuana. Opiates Notes: Hydromorphone detected is consistent with the use of the drug Hydromorphone. Hydromorphone can be a prescribed drug and is also a metabolite of Hydrocodone. LDT Notes: Confirmation tests were developed and their analytical performance characteristics have been determined by [facility]. It has not been cleared or approved by the FDA. This assay has been validated pursuant to the CLIA regulations and is used for clinical purposes. medMATCH(R) enables providers to identify if drug use is consistent or inconsistent with a corresponding prescribed medication(s) list. Healthcare Providers needing Interpretation assistance, please contact us at [phone] ( ) M-F, 8am to 10pm EST PRESCRIBED DRUGS, medMATCH(R) (Not yet reviewed by provider) Interpretation: Performing Lab:[facility]-[address], [place] QdfiWW[address] Cullen Sarah Notes/Report: FASTING:UNKNOWN FASTING: UNKNOWNmedMATCH Summary Prescribed Prescribed Not Prescribed Consistent Inconsistent Inconsistent Amphetamine Hydromorphone Marijuana Metabolite DRUG MONITOR, PANEL 1, W/CONF, URINE (Not yet reviewed by provider) Interpretation: Performing Lab:[facility], [facility] Cxyv[address] [facility], [facility] HospitalRmzmYB[address] Cullen Patrick Sarah Notes/Report: FASTING:UNKNOWN FASTING: UNKNOWNAmphetaminesPOSITIVE<500 ng/xEKlfozglfgrg2837<250 ng/mLmedMATCH AmphetamineINCONSISTENT See Amphetamines Notes, LDT Notes See Marijuana Notes, LDT Notes See Opiates Notes, LDT Notes MethamphetamineNEGATIVE<250 ng/mLAmphetamines Comments See Amphetamines Notes, LDT Notes See Marijuana Notes, LDT Notes See Opiates Notes, LDT Notes BarbituratesNEGATIVE<300 ng/mLBenzodiazepinesNEGATIVE<100 ng/mLCocaine MetaboliteNEGATIVE<150 ng/mLMarijuana MetabolitePOSITIVE<20 ng/mLMarijuana Lqjpdpcvyy1528<5 ng/mLmedMATCH Marijuana MetabINCONSISTENT See Amphetamines Notes, LDT Notes See Marijuana Notes, LDT Notes See Opiates Notes, LDT Notes Marijuana Comments See Amphetamines Notes, LDT Notes See Marijuana Notes, LDT Notes See Opiates Notes, LDT Notes Methadone MetaboliteNEGATIVE<100 ng/mLOpiatesPOSITIVE<100 ng/mLCodeineNEGATIVE <50 ng/mLHydrocodoneNEGATIVE<50 ng/uHIwrnzvukrdvpo772<50 ng/mLmedMATCH HydromorphoneINCONSISTENT See Amphetamines Notes, LDT Notes See Marijuana Notes, LDT Notes See Opiates Notes, LDT Notes MorphineNEGATIVE<50 ng/mLNorhydrocodoneNEGATIVE<50 ng/mLOpiates Comments See Amphetamines Notes, LDT Notes See Marijuana Notes, LDT Notes See Opiates Notes, LDT Notes OxycodoneNEGATIVE<100 ng/mLPhencyclidineNEGATIVE<25 ng/sQQvjwjahqvj37.5> or = 20.0 mg/dLpH5.94.5-9.0OxidantNEGATIVE<200 mcg/mLFENTANYL, QUANTITATIVE, URINE (Not yet reviewed by provider) Interpretation: Performing Lab:[facility], [facility] [address], Reji ThomsonDzaxVD[address] Cullen Sarah Notes/Report: FASTING:UNKNOWN FASTING: UNKNOWNFentanylNEGATIVE<0.5 ng/mLNorfentanylNEGATIVE<0.5 ng/mLFentanyl CommentsSee LDT NotesDRUG MONITORING TEMPLATE Reviewed date:03/20/2025 01:37:18 PM Interpretation: Performing Lab:[facility] DE [facility]ESUS [employer]-[address], Reji PeteTvzeVC[address] Cullen Sarah Notes/Report: FASTING:UNKNOWN FASTING: UNKNOWNNotes and Comments This drug testing is for medical treatment only. Analysis was performed as non-forensic testing and these results should be used only by healthcare providers to render diagnosis or treatment, or to monitor progress of medical conditions. Marijuana Notes: Marijuana Metabolite detected is consistent with exposure to Marijuana (THC) and/or hemp derived products. Some jurisdictions do not include hemp within the definition of Marijuana. LDT Notes: Confirmation tests were developed and their analytical performance characteristics have been determined by [facility]. It has not been cleared or approved by the FDA. This assay has been validated pursuant to the CLIA regulations and is used for clinical purposes. Healthcare Providers needing Interpretation assistance, please contact us at [phone] ( ) M-F, 8am to 10pm EST MARIJUANA (THC) METABOLITE, URINE QUANT Reviewed date:03/20/2025 01:37:13 PM Interpretation: Performing Lab:[facility]-[address], Reji PeteCbczAB[address] Cullen Sarah Notes/Report: FASTING:UNKNOWN FASTING: UNKNOWNMarijuana Bdjqzqfbyo5763<5 ng/mLMarijuana CommentsSee Marijuana Notes, LDT NotesDRUG MONITORING TEMPLATE Reviewed date:09/23/2024 11:43:47 AM Interpretation: Performing Lab:[facility]-[address], Reji ThomsonQubzQE[address] Cullen Sarah Notes/Report: FASTING:UNKNOWN FASTING: UNKNOWNNotes and Comments This drug testing is for medical treatment only. Analysis was performed as non-forensic testing and these results should be used only by healthcare providers to render diagnosis or treatment, or to monitor progress of medical conditions. Marijuana Notes: Marijuana Metabolite detected is consistent with exposure to Marijuana (THC) and/or hemp derived products. Some jurisdictions do not include hemp within the definition of Marijuana. LDT Notes: Confirmation tests were developed and their analytical performance characteristics have been determined by [facility]. It has not been cleared or approved by the FDA. This assay has been validated pursuant to the CLIA regulations and is used for clinical purposes. Healthcare Providers needing Interpretation assistance, please contact us at [phone] ( ) M-F, 8am to 10pm EST MARIJUANA (THC) METABOLITE, URINE QUANT Reviewed date:09/23/2024 11:43:47 AM Interpretation: Performing Lab:[facility] [address], [place] ZoxjML[address] Cullen Sarah Notes/Report: FASTING:UNKNOWN FASTING: UNKNOWNMarijuana Yoahotgkth4306<5 ng/mLMarijuana CommentsSee Marijuana Notes, LDT NotesDRUG MONITORING TEMPLATE Reviewed date:07/18/2024 08:50:08 AM Interpretation: Performing Lab:[facility] DE JESUS [employer] [address], [facility] OnytEC[address] Cullen Sarah Notes/Report: FASTING:UNKNOWN FASTING: UNKNOWNNotes and Comments This drug testing is for medical treatment only. Analysis was performed as non-forensic testing and these results should be used only by healthcare providers to render diagnosis or treatment, or to monitor progress of medical conditions. Marijuana Notes: Marijuana Metabolite detected is consistent with exposure to Marijuana (THC) and/or hemp derived products. Some jurisdictions do not include hemp within the definition of Marijuana. LDT Notes: Confirmation tests were developed and their analytical performance characteristics have been determined by [facility]. It has not been cleared or approved by the FDA. This assay has been validated pursuant to the CLIA regulations and is used for clinical purposes. Healthcare Providers needing Interpretation assistance, please contact us at [phone] ( ) M-F, 8am to 10pm EST MARIJUANA (THC) METABOLITE, URINE QUANT Reviewed date:07/18/2024 08:50:16 AM Interpretation: Performing Lab:[facility] [address], [facility] HospitalEnceLX[address] Cullen Patrick Sarah Notes/Report: FASTING:UNKNOWN FASTING: UNKNOWNMarijuana Zgcahzsdma2717<5 ng/mLMarijuana CommentsSee Marijuana Notes, LDT NotesPAIN CLINICAL DRUG SURVEY 12, PAINS (Inculdes Alcohol, Heroin, Fentanyl and Tramadol w confirm) Reviewed date:09/23/2024 11:43:47 AM Interpretation: Performing Lab:[facility], [address] , [place], [address] Notes/Report: This drug testing is for medical treatment only. THC METABOLITE URINE SCREEN = POSITIVE Analysis was performed as non-forensic testing and the results should be used only by healthcare Specimen sent for confirmation testing for THC - [facility] test # [id number] providers to render diagnosis or treatment, or to monitor the progress of medical conditions. FACILITY: [facility] [id number], URINE40.70(20.00 - 320.0) MG/DLPH, URINE6.0(5.0 - 9.0)ALCOHOL, UR.NEG(< 10 - Cutof) MG/DLAMPHETAMINES, UR.NEG(< 500 - Cutof) NG/MLBARBITURATES, UR.NEG(< 300 - Cutof) NG/MLBENZODIAZEPINES, UR.NEG(< 100 - Cutof) NG/MLTHC METABOLITE, UR.POS(< 20 - Cutof) NG/MLCOCAINE METAB. UR.NEG(< 150 - Cutof) NG/ML METHADONE METAB. UR.NEG(< 100 - Cutof) NG/MLOPIATES, UR.NEG(< 100 - Cutof) NG/ML OXYCODONE, UR.NEG(< 100 - Cutof) NG/MLPHENCYCLIDINE, UR.NEG(< 25 - Cutof) NG/ML HEROIN METAB. UR.NEG(< 10 - Cutof) NG/MLFENTANYL, UR SCREENNEG(< 1.0 - Cutof) NG/MLTRAMADOL, UR SCREENNEG(< 200 - Cutof) NG/MLPAIN CLINICAL DRUG SURVEY 12, PAINS (Inculdes Alcohol, Heroin, Fentanyl and Tramadol w confirm) Reviewed date:07/18/2024 08:51:01 AM Interpretation: Performing Lab:[facility], [address] [place], [address] Notes/Report: This drug testing is for medical treatment only. THC METABOLITE URINE SCREEN = POSITIVE Analysis was performed as non-forensic testing and the results should be used only by healthcare Specimen sent for confirmation testing for THC - [facility] test # [id number] providers to render diagnosis or treatment, or to monitor the progress of medical conditions. FACILITY: [facility] [id number], URINE47.51(20.00 - 320.0) MG/DLPH, URINE6.0(5.0 - 9.0)ALCOHOL, UR.NEG(< 10 - Cutof) MG/DLAMPHETAMINES, UR.NEG(< 500 - Cutof) NG/MLBARBITURATES, UR.NEG(< 300 - Cutof) NG/MLBENZODIAZEPINES, UR.NEG(< 100 - Cutof) NG/MLTHC METABOLITE, UR.POS(< 20 - Cutof) NG/MLCOCAINE METAB. UR.NEG(< 150 - Cutof) NG/ML METHADONE METAB. UR.NEG(< 100 - Cutof) NG/MLOPIATES, UR.NEG(< 100 - Cutof) NG/ML OXYCODONE, UR.NEG(< 100 - Cutof) NG/MLPHENCYCLIDINE, UR.NEG(< 25 - Cutof) NG/ML HEROIN METAB. UR.NEG(< 10 - Cutof) NG/MLFENTANYL, UR SCREENNEG(< 1.0 - Cutof) NG/MLTRAMADOL, UR SCREENNEG(< 200 - Cutof) NG/ML Reason For Referral No Information Medications Medication SIG (Take, Route, Frequency, Duration) Notes Start Date End Date Status lamoTRIgine 100 MG take 1 tablet by leia th IN THE MORNING Oral; Duration: 90 Days ActiveCymbalta 20 MG1 capsule Orally Twice a dayActiveTrelegy Ellipta 200-62.5-25 MCG/ACT1 puff Inhalation Once a day; Duration: 30 daysRinse after useActiveFarxiga 5 MG1 tablet Orally Once a dayActiveVraylar 1.5 MG1 capsule Orally Once a day; Duration: 30 day(s)ActiveFolic Acid 1 MGtake 1 tablet by mouth every morning Oral; Duration: 30 DaysActiveFurosemide 40 MG1 tablet Orally BIDPRN swellingActiveMetoprolol Succinate ER 50 MG1 tablet Orally Once a day; Duration: 30 day(s)ActiveVyvanse 10 MG1 capsule in the morning Orally Once a day ActivePain pump compound Hydromorphone 4mg/mL, Clonidine 40mcg/mL, and Bupivacaine 10mg/mLas directed as directed as directeddilaudid 2/bupivicaine 2 ActiveAlbuterol Sulfate HFA 108 (90 Base) MCG/ACT2 puffs as needed for SOB Inhalation every 4 hrs; Duration: 30 daysActivePrazosin HCl 1 MGtake 1 capsule by mouth at bedtime Oral; Duration: 90 DaysActiveAtorvastatin Calcium 10 MGOral; Duration: 30 DaysActivetraZODone HCl 150 MGOral; Duration: 30 DaysActive Lisinopril 20 MGtake 1 tablet by mouth once daily Oral; Duration: 90 DaysActive Methotrexate Sodium 2.5 MGOral; Duration: 28 DaysActive Immunizations Vaccine Route Administration Date Status Comme nts Flu, Fluad (55571) 65 yrs+, single-dose syringe (7054-0470) Unknown 05/04/2023 Administered Pneumococcal (Pneumovax 23)Blftyfx2610/08/2021dministeredTdap (Boostrix)Unknown 3Administered Social History Tobacco Use: Social History Observation [...] Findings: Tobacco userHeavy cigarette smoker (20-39 cigs/day) Problems Problem Type SNOMED Code ICD Code Onset Dates Problem Status W/U Status Risk Notes Problem Morbid obesity (disorder) (28784 4316) Morbid (severe) obesity due to excess calories (E66.01) ActiveconfirmedProblemTobacco user (548282012)Nicotine dependence, unspecified, uncomplicated (F17.200)ActiveconfirmedProblemChronic pain syndrome (874467211) Chronic pain syndrome (G89.4)ActiveconfirmedProblemUncomplicated moderate persistent asthma (246690082)Moderate persistent asthma, uncomplicated (J45.40) ActiveconfirmedProblemPost-laminectomy syndrome (15661519)Postlaminectomy syndrome, not elsewhere classified (M96.1)ActiveconfirmedProblemLong-term current use of inhaled steroid (199583119)terminal manager (current) use of inhaled steroids (Z79.51)ActiveconfirmedProblemGastroesophageal reflux disease (449835468)GERD (gastroesophageal reflux disease) (K21.9)ActiveconfirmedProblem Obstructive sleep apnea syndrome (80510457)CESARIO (obstructive sleep apnea) (G47.33)ActiveconfirmedProblemCannabis abuse (78289573)Marijuana abuse (F12.10) ActiveconfirmedProblemMental disorder caused by drug (175486685)Cigarette nicotine dependence with nicotine-induced disorder (F17.219)Activeconfirmed ProblemIron deficiency anemia (19989657)FRANCINE (iron deficiency anemia) (D50.9) ActiveconfirmedProblemFailed back syndrome (26451409)Failed back syndrome (M96.1)ActiveconfirmedProblemDeep venous thrombosis of peroneal vein (129782937) DVT, lower extremity, distal, acute (I82.4Z9)ActiveconfirmedProblemSecondary pulmonary hypertension (64948850)Other secondary pulmonary hypertension (I27.29) BzptnfgfypdyswmOzvskmlMpmhr-6-pmgykorwkck phenotype PiMS (finding) (059145610) Alpha 1-antitrypsin PiMS phenotype (Z14.8)ActiveconfirmedProblemBody mass index 40+ - morbidly obese (794989517)Body mass index [BMI] 50.0-59.9, adult (Z68.43) ActiveconfirmedProblemChronic obstructive pulmonary disease (disorder) (15447059)Other specified chronic obstructive pulmonary disease (J44.89)Active confirmed Vital Signs Heart Rate 90 /min 05/31/2025 Blood pressure oteftsfyq69 mm Hg05/31/20251258Daaggl20 in05/31/2025lood pressure dcapjqte672 mm Hg05/31/20258997Czdldr603.4 lbs108/01/2024BMI49.76 kg/m205/31/2025 Encounters Encounter Location Date Provider Diagnosis [facility] [address] [place] [address] 03/13/2025 Julia Skilliter Failed back syndrome M96.1 ; terminal manager (current) use of opiate analgesic Z79.891 ; Encounter for adjustment or management of infusion pump Z45.1 and Chronic pain syndrome G89.4 [facility] [address] [place] [address] 05/31/2025 Jessica Millan Failed back syndrome M96.1 ; terminal manager (current) use of opiate analgesic Z79.891 ; Encounter for adjustment or management of infusion pump Z45.1 and Chronic pain syndrome G89.4 [facility] [address] [place] [address] 07/07/2024 Jasmyn Garibay Failed back syndrome M96.1 and terminal manager (current) use of opiate analgesic Z79.891 [facility] [address] [place] [address] 07/11/2024 Julia Skilliter Failed back syndrome M96.1 ; terminal manager (current) use of opiate analgesic Z79.891 ; Encounter for adjustment or management of infusion pump Z45.1 and Chronic pain syndrome G89.4 [facility] [address] [place] [address] 09/19/2024 Julia Skilliter Failed back syndrome M96.1 ; terminal manager (current) use of opiate analgesic Z79.891 ; Encounter for adjustment or management of infusion pump Z45.1 and Chronic pain syndrome G89.4 [facility] [address] [place] [address] 12/19/2024 Julia Skilliter Failed back syndrome M96.1 ; intermediate (current) use of opiate analgesic Z79.891 ; Encounter for adjustment or management of infusion pump Z45.1 and Chronic pain syndrome G89.4 [facility] [address] [place] [address] 02/27/2025 Julia Fernandez [facility] [address] [place] [address] 03/14/2025Mohit DejesusInterventional Pain Consultants [address] [place] [address]/5Christine SkilliterRadiology [facility] [place] [address]/5[facility] [address] [place] [address] 5[facility] [address] [place] [address]/07/2024Jasmyn JohnsonInter[facility] [address] [place] [address]/5Christine SkilliterPulmonary Medicine [id number] [place] [address] 10/17/2024Roscoe SamsaPulmonary Medicine [id number] [place] [address]/[facility] [address] [place] [address]/5Christine Skilliter Assessments Encounter Date Diagnosis (ICD Code) Assessment Notes Treatment Notes Treatment Clinical Notes Section Notes 07/07/2024 Failed back syndrome (ICD-10 - M 96.1) 07/11/2024Long term (current) use of opiate analgesic (ICD-10 - Z79.891) Pain pump refill Report no issues with pump. The last increase from .2 to .4 did help her pain. She is requesting another increase as she feels her pain has slowly been increasing with activity. Previous lumbar surgery with Dr. Fine-posterior fusion L4-S1 Controlled substance agreement on file 12/2022 [facility] reviewed Urine drug screen reviewed--micro dosed ITP, uses [facility]-Dr Dejesus aware Urine drug screen today Increase dose by 20% which still keeps her below .5mg at 0.48mg/day. Concentration was increased to 2mg/ml today to last 90 days but still at 20ml (has a 40ml pump). With the small increase today this will only last 74 days. Will decresae concentration for next fill back to 1.5mg/ml but fill with 40 mls. Narcan on hand at home Return to clinic for next pump fill 07/11/2024Failed back syndrome (ICD-10 - M96.1) Pain pump refill Report no issues with pump. The last increase from .2 to .4 did help her pain. She is requesting another increase as she feels her pain has slowly been increasing with activity. Previous lumbar surgery with Dr. Fine-posterior fusion L4-S1 Controlled substance agreement on file 12/2022 [facility] reviewed Urine drug screen reviewed--micro dosed ITP, uses [facility]-Dr Oleg cruz Urine drug screen today Increase dose by 20% which still keeps her below .5mg at 0.48mg/day. Concentration was increased to 2mg/ml today to last 90 days but still at 20ml (has a 40ml pump). With the small increase today this will only last 74 days. Will decresae concentration for next fill back to 1.5mg/ml but fill with 40 mls. Narcan on hand at home Return to clinic for next pump fill 09/19/2024Long term (current) use of opiate analgesic (ICD-10 - Z79.891) Pain pump refill Report no issues with pump. Last increase to .48mg is providing excellent relief. Previous lumbar surgery with Dr. Fine-posterior fusion L4-S1 Controlled substance agreement on file 12/2022 [facility] reviewed Urine drug screen reviewed--micro dosed ITP, uses [facility]-Dr Oleg cruz Urine drug screen today Decreased concentration to 1.5mg/ml and increased volume to 40mls last 90 days. Narcan on hand at home Return to clinic for next pump fill I reviewed the medical records on the above patient and I agree with the plan of care 09/19/2024Failed back syndrome (ICD-10 - M96.1) Pain pump refill Report no issues with pump. Last increase to .48mg is providing excellent relief. Previous lumbar surgery with Dr. Fine-posterior fusion L4-S1 Controlled substance agreement on file 12/2022 [facility] reviewed Urine drug screen reviewed--micro dosed ITP, uses [facility]-Dr Oleg cruz Urine drug screen today Decreased concentration to 1.5mg/ml and increased volume to 40mls last 90 days. Narcan on hand at home Return to clinic for next pump fill I reviewed the medical records on the above patient and I agree with the plan of care 12/19/2024Long term (current) use of opiate analgesic (ICD-10 - Z79.891) Pain pump refill Last increase to .48mg was providing excellent relief. About one month ago her low back pain started to worsen again. She reports she cannot stand longer than 3 to 5 minutes before the pain sets in. States she has been told she will need another back surgerybut she cares for her mother. Denies injury, but states caring for her mother may have exacerbated her pain. Previous lumbar surgery with Dr. Fine-posterior fusion L4-S1 Controlled substance agreement on file O[facility] reviewed Urine drug screen reviewed--micro dosed ITP, uses [facility]-Dr Oleg cruz Urine drug screen today Increased dose today to 0.58mg/day. If this does not help, I would like the patient to RTC in 2 to 3 weeks for re-eval. Consider imaging at this point. Narcan on hand at home Return to clinic for next pump fill Any further dose increases will be discussed with Dr. Dejesus due to the THC. RTC for next pump fill. 12/19/2024Failed back syndrome (ICD-10 - M96.1) Pain pump refill Last increase to .48mg was providing excellent relief. About one month ago her low back pain started to worsen again. She reports she cannot stand longer than 3 to 5 minutes before the pain sets in. States she has been told she will need another back surgerybut she cares for her mother. Denies injury, but states caring for her mother may have exacerbated her pain. Previous lumbar surgery with Dr. Fine-posterior fusion L4-S1 Controlled substance agreement on file O[facility]RS reviewed Urine drug screen reviewed--micro dosed ITP, uses [facility]-Dr Oleg cruz Urine drug screen today Increased dose today to 0.58mg/day. If this does not help, I would like the patient to RTC in 2 to 3 weeks for re-eval. Consider imaging at this point. Narcan on hand at home Return to clinic for next pump fill Any further dose increases will be discussed with Dr. Dejesus due to the THC. RTC for next pump fill. 03/13/2025Long term (current) use of opiate analgesic (ICD-10 - Z79.891) Pain pump refill Last increase to .58mg provided minimal relief. About four months ago her low back pain started to worsen again. She reports she cannot stand longer than 3 to 5 minutes before the pain sets in. States she has been told she will need another back surgery but she cares for her mother. Denies injury, but states caring for her mother may have exacerbated her pain. Her mother has since butthe pain continues. Previous lumbar surgery with Dr. Fine-posterior fusion L4-S1 Controlled substance agreement on file OARRS reviewed Urine drug screen reviewed-uses [facility]-Dr Dejesus aware. She was previously at .38mg/ml when using theTHC. Any further dose increases will be discussed with Dr. Dejesus due to the THC. Urine drug screen today Narcan on hand at home Will plan DARREL due to her increased pain and minimal efficacy with last increase. Ordered updated lumbar MRI. Patient instructed she schedules this during clinic business hours as she will need to RTC to have her pump interrogated immediately following MRI. RTC to review MRI and 06/05/25 for pump fill. If we increase dose, will need concentration increased. 03/13/2025Failed back syndrome (ICD-10 - M96.1)Comprehensive pain management program includes injections, physical therapy, patient education, psychosocial support, and oral medications when appropriate. Pain pump refill Last increase to .58mg provided minimal relief. About four months ago her low back pain started to worsen again. She reports she cannot stand longer than 3 to 5 minutes before the pain sets in. States she has been told she will need another back surgery but she cares for her mother. Denies injury, but states caring for her mother may have exacerbated her pain. Her mother has since butthe pain continues. Previous lumbar surgery with Dr. Fine-posterior fusion L4-S1 Controlled substance agreement on file OARRS reviewed Urine drug screen reviewed-uses [facility]-Dr Dejesus aware. She was previously at .38mg/ml when using theTHC. Any further dose increases will be discussed with Dr. Dejesus due to the THC. Urine drug screen today Narcan on hand at home Will plan DARREL due to her increased pain and minimal efficacy with last increase. Ordered updated lumbar MRI. Patient instructed she schedules this during clinic business hours as she will need to RTC to have her pump interrogated immediately following MRI. RTC to review MRI and 06/05/25 for pump fill. If we increase dose, will need concentration increased. 05/31/2025Long term (current) use of opiate analgesic (ICD-10 - Z79.891) Pain pump refill. Previous lumbar surgery with Dr. Mcmahanposterior fusion L4-S1. Controlled substance agreement on file 03/13/2025. OARRS reviewed. Urine drug screen reviewed 03/13/2025- uses [facility], Dr. Dejesus aware. Urine drug screen today, 05/31/2025. Narcan on hand. Return to clinic for next pump fill. 05/31/2025Failed back syndrome (ICD-10 - M96.1) Pain pump refill. Previous lumbar surgery with Dr. Mcmahanposterior fusion L4-S1. Controlled substance agreement on file 03/13/2025. OARRS reviewed. Urine drug screen reviewed 03/13/2025- uses [facility], Dr. Dejesus aware. Urine drug screen today, 05/31/2025. Narcan on hand. Return to clinic for next pump fill. 05/31/2025Encounter for adjustment or management of infusion pump (ICD-10 - Z45.1) Pain pump refill. Previous lumbar surgery with Dr. Palmer fusion L4-S1. Controlled substance agreement on file 03/13/2025. OARRS reviewed. Urine drug screen reviewed 03/13/2025- uses [facility] microdose, Dr. Dejesus aware. Urine drug screen today, 05/31/2025. Narcan on hand. Return to clinic for next pump fill. 03/13/2025Encounter for adjustment or management of infusion pump (ICD-10 - Z45.1) Pain pump refill Last increase to .58mg provided minimal relief. About four months ago her low back pain started to worsen again. She reports she cannot stand longer than 3 to 5 minutes before the pain sets in. States she has been told she will need another back surgery but she cares for her mother. Denies injury, but states caring for her mother may have exacerbated her pain. Her mother has since butthe pain continues. Previous lumbar surgery with Dr. Fine-posterior fusion L4-S1 Controlled substance agreement on file OAR[facility] reviewed Urine drug screen reviewed-uses [facility]-Dr Dejesus aware. She was previously at .38mg/ml when using theTHC. Any further dose increases will be discussed with Dr. Dejesus due to the THC. Urine drug screen today Narcan on hand at home Will plan DARREL due to her increased pain and minimal efficacy with last increase. Ordered updated lumbar MRI. Patient instructed she schedules this during clinic business hours as she will need to RTC to have her pump interrogated immediately following MRI. RTC to review MRI and 06/05/25 for pump fill. If we increase dose, will need concentration increased. 12/19/2024Encounter for adjustment or management of infusion pump (ICD-10 - Z45.1) Pain pump refill Last increase to .48mg was providing excellent relief. About one month ago her low back pain started to worsen again. She reports she cannot stand longer than 3 to 5 minutes before the pain sets in. States she has been told she will need another back surgerybut she cares for her mother. Denies injury, but states caring for her mother may have exacerbated her pain. Previous lumbar surgery with Dr. Fine-posterior fusion L4-S1 Controlled substance agreement on file OARRS reviewed Urine drug screen reviewed--micro dosed ITP, uses [facility]-Dr Oleg cruz Urine drug screen today Increased dose today to 0.58mg/day. If this does not help, I would like the patient to RTC in 2 to 3 weeks for re-eval. Consider imaging at this point. Narcan on hand at home Return to clinic for next pump fill Any further dose increases will be discussed with Dr. Dejesus due to the THC. RTC for next pump fill. 07/07/2024Long term (current) use of opiate analgesic (ICD-10 - Z79.891) 09/19/2024Encounter for adjustment or management of infusion pump (ICD-10 - Z45.1) Pain pump refill Report no issues with pump. Last increase to .48mg is providing excellent relief. Previous lumbar surgery with Dr. Babatunde-posterior fusion L4-S1 Controlled substance agreement on file 12/2022 [facility] reviewed Urine drug screen reviewed--micro dosed ITP, uses [facility]-Dr Oleg cruz Urine drug screen today Decreased concentration to 1.5mg/ml and increased volume to 40mls last 90 days. Narcan on hand at home Return to clinic for next pump fill I reviewed the medical records on the above patient and I agree with the plan of care 07/11/2024Encounter for adjustment or management of infusion pump (ICD-10 - Z45.1) Pain pump refill Report no issues with pump. The last increase from .2 to .4 did help her pain. She is requesting another increase as she feels her pain has slowly been increasing with activity. Previous lumbar surgery with Dr. Fine-posterior fusion L4-S1 Controlled substance agreement on file 12/2022 O[facility] reviewed Urine drug screen reviewed--micro dosed ITP, uses [facility]-Dr Oleg cruz Urine drug screen today Increase dose by 20% which still keeps her below .5mg at 0.48mg/day. Concentration was increased to 2mg/ml today to last 90 days but still at 20ml (has a 40ml pump). With the small increase today this will only last 74 days. Will decresae concentration for next fill back to 1.5mg/ml but fill with 40 mls. Narcan on hand at home Return to clinic for next pump fill 5Chronic pain syndrome (ICD-10 - G89.4) Pain pump refill Report no issues with pump. The last increase from .2 to .4 did help her pain. She is requesting another increase as she feels her pain has slowly been increasing with activity. Previous lumbar surgery with Dr. Fine-posterior fusion L4-S1 Controlled substance agreement on file 12/2022 O[facility] reviewed Urine drug screen reviewed--micro dosed ITP, uses [facility]-Dr Oleg cruz Urine drug screen today Increase dose by 20% which still keeps her below .5mg at 0.48mg/day. Concentration was increased to 2mg/ml today to last 90 days but still at 20ml (has a 40ml pump). With the small increase today this will only last 74 days. Will decresae concentration for next fill back to 1.5mg/ml but fill with 40 mls. Narcan on hand at home Return to clinic for next pump fill 5Chronic pain syndrome (ICD-10 - G89.4) Pain pump refill Report no issues with pump. Last increase to .48mg is providing excellent relief. Previous lumbar surgery with Dr. Fine-posterior fusion L4-S1 Controlled substance agreement on file 12/2022 O[facility] reviewed Urine drug screen reviewed--micro dosed ITP, uses [facility]-Dr Oleg cruz Urine drug screen today Decreased concentration to 1.5mg/ml and increased volume to 40mls last 90 days. Narcan on hand at home Return to clinic for next pump fill I reviewed the medical records on the above patient and I agree with the plan of care 5Chronic pain syndrome (ICD-10 - G89.4) Pain pump refill Last increase to .48mg was providing excellent relief. About one month ago her low back pain started to worsen again. She reports she cannot stand longer than 3 to 5 minutes before the pain sets in. States she has been told she will need another back surgerybut she cares for her mother. Denies injury, but states caring for her mother may have exacerbated her pain. Previous lumbar surgery with Dr. Mcmahanposterior fusion L4-S1 Controlled substance agreement on file OARRS reviewed Urine drug screen reviewed--micro dosed ITP, uses [facility]-Dr lOeg cruz Urine drug screen today Increased dose today to 0.58mg/day. If this does not help, I would like the patient to RTC in 2 to 3 weeks for re-eval. Consider imaging at this point. Narcan on hand at home Return to clinic for next pump fill Any further dose increases will be discussed with Dr. Dejesus due to the THC. RTC for next pump fill. 5Chronic pain syndrome (ICD-10 - G89.4) Pain pump refill Last increase to .58mg provided minimal relief. About four months ago her low back pain started to worsen again. She reports she cannot stand longer than 3 to 5 minutes before the pain sets in. States she has been told she will need another back surgery but she cares for her mother. Denies injury, but states caring for her mother may have exacerbated her pain. Her mother has since butthe pain continues. Previous lumbar surgery with Dr. Fine-posterior fusion L4-S1 Controlled substance agreement on file OARRS reviewed Urine drug screen reviewed-uses [facility]-Dr Dejesus aware. She was previously at .38mg/ml when using theTHC. Any further dose increases will be discussed with Dr. Dejesus due to the THC. Urine drug screen today Narcan on hand at home Will plan DARREL due to her increased pain and minimal efficacy with last increase. Ordered updated lumbar MRI. Patient instructed she schedules this during clinic business hours as she will need to RTC to have her pump interrogated immediately following MRI. RTC to review MRI and 06/05/25 for pump fill. If we increase dose, will need concentration increased. 05/31/2025hronic pain syndrome (ICD-10 - G89.4) Pain pump refill. Previous lumbar surgery with Dr. Fine-posterior fusion L4-S1. Controlled substance agreement on file 03/13/2025. OARRS reviewed. Urine drug screen reviewed 03/13/2025- uses [facility], microdose, Dr. Dejesus aware. Urine drug screen today, 05/31/2025. Narcan on hand. Return to clinic for next pump fill. Plan Of Treatment Pending Test Test Name Order Date UA (URINALYSIS, COMPLETE) 10/07/2022 PAIN CLINICAL DRUG SURVEY 12 , PAINS (Inculdes Alcohol, Heroin, Fentanyl and Tramadol w confirm) 05/31/2025 PAIN CLINICAL DRUG SURVEY 12 , PAINS (Inculdes Alcohol, Heroin, Fentanyl and Tramadol w confirm) 01/27/2024 PAIN CLINICAL DRUG SURVEY 12 , PAINS (Inculdes Alcohol, Heroin, Fentanyl and Tramadol w confirm) 07/07/2024 PAIN CLINICAL DRUG SURVEY 12 , PAINS (Inculdes Alcohol, Heroin, Fentanyl and Tramadol w confirm) 12/19/2024 ALCOHOL (ETHANOL), URINE SCREEN w CONFIR MATION 05/31/2025 HEMOGLOBIN A1C (GLYCO) 10/07/2022 CBC WITH DIFF (EXP 04/2025) 10/07/2022 PT (PROTIME), INR AND PTT (PT/INR AND PT T) 10/07/2022 BMP (BASIC MET PANEL - W/GFR) 10/07/2022 XR Lumbar Spine (2-3 views) * 05/14/2022 MRI Lumbar Spine w/o contrast 03/13/2025 TRAMADOL, UR. QUANTITATIVE 05/31/2025 BUPRENORPHINE/NORBUPRENORPHINE, UR. MAJO T (SUBOXONE/SUBUTEX) 05/31/2025 HEROIN METAB SCREEN W/CONFIRMATION, URIN E 05/31/2025 MRSA SCREEN (METHICILLIN-RESISTANT S. AU REUS) 10/07/2022 DRUG MONITORING TEMPLATE 05/31/2025 PRESCRIBED DRUGS, medMATCH(R) 05/31/2025 DRUG MONITOR, PANEL 1, W/CONF, URINE 03/2025 FENTANYL, QUANTITATIVE, URINE 05/31/2025 Future Test Test Name Order Date CT Chest Low Dose for Screening* 025 Next Appt Details Provider Name:Jessica Dietz er, 08/23/2025 10:30:00 AM, [address], [place], [address], Insurance Providers Payer Name Payer Address Payer Phone Subscriber Number Group Number Insured Name Patient Relationship to Insured Coverage Start Date Coverage End Date [employer]V PRIMARY MEDICARE [address] [place] [address] [id number] Radha Mendoza Self - patient is the insured [employer] DUAL ADV SECONDARY MEDICAIDPO [address] [place] [address] [phone], HollieSelf - patient is the [id number] 2024 Medications Administered Medication Instructions Date of Administration Dosage Notes Pump refill compound mLPump refill [id number] mLPump refill avuaudii37/06/2022 40 mLPump refill [id number] mLPump refill [id number] mLPump refill [id number] mLPump refill [id number] mLPump refill mLPump refill [id number] mLPump refill compound mLPump refill mprttdic09 mLPump refill zinxxeeo06/20/2025 20 mLPump refill tkqruwzr87/31/664075 mLPump refill hpaflwsw42 mL -Dilaudid 1.5mg/ml Bupivacaine 1.5mg/ml Pump refill trywfdpi45 mL Dilaudid 1.5mg/ml Bupivacaine 1.5mg/ml Pump refill omqyutab97 mL Dilaudid 1.5mg/ml Bupivacaine 1.5mg/ml Medical (General) History Medical History History ICD Code HTN (hypertension) I10 Moderate persistent asthma, uncomplicate d J45.40 Depression F32.A JOSS (generalized anxiety disorder) F41.1 Bipolar 1 disorder F31.9 Chronic diastolic (congestive) heart judy lure I50.32 Osteoarthritis M19.90 Dyslipidemia E78.5 Migraines G43.909 Alpha 1-antitrypsin PiMS phenotype Z14.8 CESARIO (obstructive sleep apnea) G47.33 Cigarette nicotine dependence with nicot ine-induced disorder F17.219 Marijuana abuse F12.10 terminal manager (current) use of inhaled stero ids Z79.51 DVT, lower extremity, distal, acute I82. 4Z9 Other secondary pulmonary hypertension I 27.29 Spondylolisthesis of lumbar region M43.1 6 Degenerative lumbar spinal stenosis M48. 061 Surgical History Surgery Date(Month/Year) 2 C-Sections Right total kneePain pump insertionSCS insertion and removalback surgery q5Uxydp knee meniscus tear n3vyqdgghxntfsj and adenoidectomydilatation and curettageITP replacement - SynchronMed II; 8637-40 [id number] ITP catheter - other (one piece)02/2023endometrial /2023Heart CatheterHospitalization History Reason Date(Month/Year) Cellulitis 04/22/2024 DVT-TBH 09/14/2023
--- OUTSIDE RECORDS SUMMARY | 2025-06-06 09:03 | XMS_ITS | Encounter Summary ---
Author Organization [facility] Address [address] [place] [address] Care Team Providers Care Mini Baccarat Dealer Name Role Phone Roscoe Phan MD Unavailable Syl Trotter Primary Care Provider [phone] Ysabel Gomez CNP Unavailable Encounter Details DateTypeDepartmentCare Team (Latest Contact Info)Jytybudbqsm38/03/2025Results Follow-Up [facility] at [facility] [address] [place] [address] Natasha Michaud CNP [address] [place] [address] Vascular US lower extremity venous duplex left Social History Tobacco UseTypesPacks/DayYears UsedDateSmoking Tobacco: Every DayCigarettes Passive Smoke Exposure: CurrentSmokeless Tobacco: NeverAlcohol UseStandard Drinks/WeekCommentsNever0 (1 standard drink = 0.6 oz pure alcohol)[facility] Utilities AnswerDate RecordedIn the past 12 months has the electric, gas, oil, or water [place] threatened to shut off services in your [...] were you homeless or living in a jail (including now)? No04/13/2025Hunger Vital SignAnswerDate RecordedWithin the past 12 months, you worried that your food would run out before you got the money to buymore.Never true04/13/2025Ran Out of Food in the Last YearNot on file04/13/2025 CommentsUnknownSex and Gender InformationValueDate RecordedSex Assigned at Jbznob7003/16/2025 10:58 AM EDTLegal BqxWokoyn97/29/2022 9:58 PM EDTGender YfksrljhHnlofx47/25/2025 10:58 AM EDTSexual OrientationChoose not to disclose 03/16/2025 10:58 AM EDTdocumented as of this encounter Miscellaneous Notes * Result Encounter Note - Natasha Michaud CNP - 05/24/2025 6:36 PM EST Please let her know her leg ultrasound was negative for DVT. documented in this encounter Plan of Treatment DateTypeDepartmentCare Team (Latest Contact Info)Dkkswfimcbf44/18/2025 11:15 AM ESTFollow-Up [facility] [address] [place] [address] Medina Montes MD [address] [place] [address] documented as of this encounter Visit Diagnoses Not on filedocumented in this encounter Care Teams Team MemberRelationshipSpecialtyStart DateEnd Date Sergo Syl [address] PCP - Wxervqq91/12/24 Roscoe Phan MD [address] [place] [address] Referring PhysicianPulmonary Disease09/29/23 Ysabel Gomez CNP [address] [facility] [place] [place] [address] Nurse PractitionerGastroenterology09/08/24documented as of this encounter
--- OUTSIDE RECORDS SUMMARY | 2025-06-06 09:03 | XMS_ITS | Encounter Summary ---
Author Organization [facility] tem Address [id number] [place] [address] Care Team Providers Care Finish Mender Name Role Phone Wally Ghosh MD Primary Care Provider + Encounter Details DateTypeDepartmentCare Team (Latest Contact Info)Qrcvjkbadyr95/03/2025Travel Social History Tobacco UseTypesPacks/DayYears UsedDateSmoking Tobacco: Every DayCigarettes Smokeless Tobacco: NeverAlcohol UseStandard Drinks/WeekCommentsYes0 (1 standard drink = 0.6 oz pure alcohol)rareChildcareAnswerDate RecordedChildcareUnknown 12/01/2018EmploymentAnswerDate CinxhtaxQeoeilafdxImftdxe94/12/2019Hunger ScreeningAnswerDate RecordedWithin the past 12 months we worried whether our food would run out before we got money to buy more.Never True03/31/2023Within the past 12 months the food we bought just didn't last and we didn't have money to get more.Never True3Purpose - LifeAnswerDate RecordedPurpose and direction in zrjvAljqzhu13/11/2021CommentsUnknownSex and Gender InformationValueDate RecordedSex Assigned at BirthNot on fileLegal SexFemale 01/25/2015 11:49 AM EDTGender IdentityNot on fileSexual OrientationNot on file documented as of this encounter Plan of Treatment DateTypeDepartmentCare Team (Latest Contact Info)Kovpqujrobz12/15/2026 10:00 AM ESTOffice Visit [facility] [address] [place] [address] Aminata Deluca DO [address] [address] 08/29/2025 10:00 AM EDTOffice Visit [facility] [address] [facility] [place] [id number] Denisha Mensah MD [address] [facility] [place] [address] documented as of this encounter Visit Diagnoses Not on filedocumented in this encounter Care Teams Team MemberRelationshipSpecialtyStart DateEnd Date Wally Ghosh MD [address] [place] [address] PCP - GeneralInternal Medicine08/08/21documented as of this encounter
--- OUTSIDE RECORDS SUMMARY | 2025-06-06 09:04 | XMS_ITS | Clinical Summary ---
Author Organization [facility] Healthcare Address [address] [place] [address] Care Team Providers Care Nurse Emergency Name Role Phone Bertin Pelaez MD Primary Care Provider [phone] Allergies Active AllergyReactionsCriticalityNoted DateCommentsDoxycyclineHives,Unknown 02/19/2023ulaglutideNausea And Vomiting,GI izrtcnlfdhuNmok69/31/2023Nsaids Vksrtic5502/19/2023 Pt takes methotrexate and is not able to take NSAIDS RarswnbjLjgnrda12/09/2023 Other Reaction(s): anaphylactic shock CyrchtwjgyoIqjreko45/31/2023 Other Reaction(s): feels like on fire [place] like head was on fire Medications MedicationSigDispense [...] Active Problems ProblemNoted DateDiagnosed DatePostoperative visit05/20/2023S/P endometrial qjptapwj65/29/2023Menorrhagia with irregular cycle03/31/2023ysmenorrhea 03/31/2023 Encounters DateTypeDepartmentCare StafRukxbccronp84/02/2025 9:10 AM EDTOffice Visit [facility] [address] [place] [id number] Lacho Fox DPM Tinea pedis of both feet (Primary Dx); Diabetes mellitus due to underlying condition with diabetic polyneuropathy, without long-term current use of insulin (HCC); Pain due to onychomycosis of toenails of both feet03/23/2025amboo flowsheet [facility] [address] [facility] [address] [place] [address] Lacho Fox DPM 03/23/2025Travelfrom Last 3 Months Family History Medical HistoryRelationNameCommentsArthritisMotherCancerMotherDiabetesMother Heart diseaseMotherHypertensionMotherRelationNameStatusCommentsFatherAliveMother Alive Social History Tobacco UseTypesPacks/DayYears UsedDateSmoking Tobacco: Every DayCigarettes Tobacco Cessation:Ready to Q uit: Not Asked; Counseling Given: Yes CommentsNoSex and Gender InformationValueDate RecordedSex Assigned at BirthNot on fileLegal GumEwgflf28/15/2023 6:39 PM EDTGender IdentityNot on file Sexual OrientationNot on file Last Filed Vital Signs Vital SignReadingTime TakenCommentsBlood Ubagkqdd256/70008/24/2023 1:26 PM EST Pulse--Temperature--Respiratory Jiro3148 9:04 AM EDTOxygen Saturation-- Inhaled Oxygen Concentration--Oyszaf661 kg (265 lb)03/23/2025 9:04 AM EDTHeight 154.9 cm (5' 1 )03/23/2025 9:04 AM EDTBody Mass Index50.0703/23/2025 9:04 AM EDT Plan of Treatment Not on file Insurance * Guarantor: Radha MendozaAccodaisy TypeRelation to PatientDate of BirthPhone Billing AddressPersonal/IiyqpnVfwm85/14/1976 [address] [address] Care Teams Team MemberRelationshipSpecialtyStart DateEnd Bertin Pelaez MD [address] [place] [id number] PCP - GeneralPhysician Assistant08/17/24
== END 2025-06-06 09:01 | disposition home or self-care (01) ==
LOC: MAMMO 09:00
PROVIDERS: Visit Provider Nurse Practitioner Family
DX: R92.8 Other abnormal and inconclusive findings on diagnostic imaging of breast (principal); Z80.3 Family history of malignant neoplasm of breast
CPT/HCPCS: 77066; G0279